=== PATIENT | male | born 1985 | race Caucasian/White ===

== ENCOUNTER 2016-12-16 15:57 | Emergency (ER) | payer OTHER ==
[~2016-12-16 15:57] MED LIST: DEXTSYP41 PO; ONDA4TAB10 SL; VNTHFA/IN INH
[2016-12-16 16:02] VITALS: TEMP 37.2; Ht 193 cm
[2016-12-16] MEDS ORDERED: SODIUM CHLORIDE 0.9% 1000ML 1,000 ML IV STA (16:36)
[2016-12-16] MEDS ORDERED: KETOROLAC TROMETHAMINE 30 MG/ML VIAL IV STA (16:36)
--- NOTE | 2016-12-16 17:11 | DIAGNOSTIC IMAGING REPORT ---
SINGLE VIEW CHEST CLINICAL HISTORY: Fever. FINDINGS: An AP, portable, upright chest radiograph is compared to study dated 08/15/2016. The examination is degraded by portable technique, large body habitus, and apical lordotic positioning. The cardiomediastinal silhouette is unremarkable. The lungs and pleural spaces are clear. No pneumothorax is seen. The bony thorax is grossly intact. IMPRESSION: No active disease in the chest. Electronically signed by: Alvaro Ayala M.D. 12/16/2016 5:10 PM Dictated Date/Time: 12/16/2016 5:09 PM
[2016-12-16 17:23] LABS: BASO % 0.3 %; BASO ABS # 0.02 K/uL (0-0.2); COMPLETE YES; EOS % 1.8 %; HEMATOCRIT 43.1 % (42-52); IG% 0.5 %; LYMPH % 30.8 %; LYMPH ABS # 2.02 K/uL (1.2-3.4); MEAN CELL VOLUME 84.2 fL (80-100); MEAN CORPUSCULAR HEMOGLOBIN 28.9 pg (25-34); MEAN CORPUSCULAR HGB CONC 34.3 g/dl (32-36); MEAN PLATELET VOLUME 10.2 fL (7.4-10.4); NEUT % 59.6 %; PLATELET COUNT 231 K/uL (130-400); RED BLOOD COUNT 5.12 M/uL (4.7-6.1); WHITE BLOOD COUNT 6.56 K/uL (4.8-10.8)
[2016-12-16 17:41] LABS: BLOOD UREA NITROGEN 14 mg/dl (7-18); BUN/CREATININE RATIO 16.6 (10-20); CALCIUM 8.3 mg/dl (8.5-10.1); CARBON DIOXIDE 27 mmol/L (21-32); CHLORIDE 104 mmol/L (98-107); CREATININE 0.83 mg/dl (0.60-1.40); GLUCOSE 146 mg/dl (70-99); POTASSIUM 3.8 mmol/L (3.5-5.1); SODIUM 140 mmol/L (136-145)
--- NOTE | 2016-12-16 17:43 | EMERGENCY ROOM VISIT NOTE ---
History Report prepared by Yuanibmedhat: Garrison Anderson Under the Supervision of: Dr. Dave Sterling D.O. First contact with patient: 16:21 Chief Complaint: COUGH Stated Complaint: FULL BODY PAIN Nursing Triage Summary: Pt presents with c/o lower back pain, into both legs. Cough, wheeze. "My eyes get covered in sleepies. I clean them off then there is more again. My eyes are irritated. My eyes have been bothering me for 3-4 days. Everything else started yesterday. When I cough, I do it until I gag." No known injury to back. History of Present Illness The patient is a 31 year old male who presents to the Emergency Room with complaints of a intermittent coughing spells that are nonproductive since yesterday. The coughing spells last until the patient is forced to gag. He also notes wheezing. He has been having waxing & waning hot and cold spells but did not take his temperature. The patient also noticed increased back pain yesterday rated 5/10 in severity. He denies any injury to the back. The patient notes that for the past three days his bilateral eyes have been irritated and have been frequently becoming crusty. 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 Source of History: patient Onset: yesterday Position: other (respiratory) Quality: other (coughing spells) Timing: intermittent Associated Symptoms: + back pain Review of Systems See HPI for pertinent positives & negatives. A total of 10 systems reviewed and were otherwise negative. Past Medical & Surgical Medical Problems: (1) Chest pain (2) Depression (3) Forehead laceration (4) Post-tussive emesis (5) Sprain of knee (6) Wrist pain, right Family History Diabetes mellitus Heart disease Social History Smoking Status: Current Every Day Smoker Marital Status: in relationship Housing Status: lives with family Occupation Status: employed Current/Historical Medications Scheduled Ibuprofen (Advil), 400-600 MG PO Q6H Omeprazole (Prilosec), 20 MG PO DAILY Scheduled PRN Albuterol Hfa (Ventolin Hfa), 2 PUFFS INH UD PRN for SOB/Wheezing Allergies Coded Allergies: Aspirin (Unverified Allergy, Mild, 12/16/16) Cephalosporins (Unverified Allergy, Unknown, UNKNOWN, 12/16/16) Penicillins (Unverified Allergy, Unknown, UNSURE, 12/16/16) Sulfa Drugs (Unverified Allergy, Unknown, ., 12/16/16) Sulfamethoxazole w/Trimethoprim (Unverified Allergy, Unknown, ., 12/16/16) Physical Exam Vital Signs Date Time Temp Pulse Resp B/P Pulse Ox O2 Delivery O2 Flow Rate FiO2 12/16/16 17:30 96 12/16/16 16:02 37.2 104 16 158/105 93 Room Air Physical Exam CONSTITUTIONAL/VITAL SIGNS: Reviewed / noted above. GENERAL: Non-toxic in appearance. INTEGUMENTARY: Warm, dry, and [place]. HEAD: Normocephalic. EYES: without scleral icterus or trauma. ENT/OROPHARYNX: clear and moist. LYMPHADENOPATHY/NECK: Is supple without lymphadenopathy or meningismus. RESPIRATORY: Lungs clear and equal. CARDIOVASCULAR: Regular rate and rhythm. GI/ABDOMEN: Soft and nontender. No organomegaly or pulsatile mass. No rebound or guarding. Normal bowel sounds. EXTREMITIES: Warm and well perfused. BACK: No CVA tenderness. NEUROLOGICAL: Intact without focal deficits. PSYCHIATRIC: normal affect. MUSCULOSKELETAL: Normally developed with good muscle tone. Medical Decision & Procedures ER Provider Diagnostic Interpretation: X ray results and stated below per my interpretation and radiology interpretation. SINGLE VIEW CHEST CLINICAL HISTORY: Fever. FINDINGS: An AP, portable, upright chest radiograph is compared to study dated 08/15/2016. The examination is degraded by portable technique, large body habitus, and apical lordotic positioning. The cardiomediastinal silhouette is unremarkable. The lungs and pleural spaces are clear. No pneumothorax is seen. The bony thorax is grossly intact. IMPRESSION: No active disease in the chest. Electronically signed by: Alvaro Ayala M.D. 12/16/2016 5:10 PM Dictated Date/Time: 12/16/2016 5:09 PM Laboratory Results 12/16/16 17:15 Red Blood Count 5.12, Mean Corpuscular Volume 84.2, Mean Corpuscular Hemoglobin 28.9, Mean Corpuscular Hemoglobin Concent 34.3, Mean Platelet Volume 10.2, Neutrophils (%) (Auto) 59.6, Lymphocytes (%) (Auto) 30.8, Monocytes (%) (Auto) 7.0, Eosinophils (%) (Auto) 1.8, Basophils (%) (Auto) 0.3, Neutrophils # (Auto) 3.91, Lymphocytes # (Auto) 2.02, Monocytes # (Auto) 0.46, Eosinophils # (Auto) 0.12, Basophils # (Auto) 0.02 12/16/16 17:15 Test 12/16/16 17:00 12/16/16 17:15 Influenza Type A Antigen Neg for Influ A (NEG) Influenza Type B Antigen Neg for Influ B (NEG) White Blood Count 6.56 K/uL (4.8-10.8) Red Blood Count 5.12 M/uL (4.7-6.1) Hemoglobin 14.8 g/dL (14.0-18.0) Hematocrit 43.1 % (42-52) Mean Corpuscular Volume 84.2 fL (80-100) Mean Corpuscular Hemoglobin 28.9 pg (25-34) Mean Corpuscular Hemoglobin Concent 34.3 g/dl (32-36) Platelet Count 231 K/uL (130-400) Mean Platelet Volume 10.2 fL (7.4-10.4) Neutrophils (%) (Auto) 59.6 % Lymphocytes (%) (Auto) 30.8 % Monocytes (%) (Auto) 7.0 % Eosinophils (%) (Auto) 1.8 % Basophils (%) (Auto) 0.3 % Neutrophils # (Auto) 3.91 K/uL (1.4-6.5) Lymphocytes # (Auto) 2.02 K/uL (1.2-3.4) Monocytes # (Auto) 0.46 K/uL (0.11-0.59) Eosinophils # (Auto) 0.12 K/uL (0-0.5) Basophils # (Auto) 0.02 K/uL (0-0.2) RDW Standard Deviation 42.1 fL (36.4-46.3) RDW Coefficient of Variation 13.7 % (11.5-14.5) Immature Granulocyte % (Auto) 0.5 % Immature Granulocyte # (Auto) 0.03 K/uL (0.00-0.02) Anion Gap 9.0 mmol/L (3-11) Estimated GFR () 134.0 Estimated GFR (Non- 115.6 BUN/Creatinine Ratio 16.6 (10-20) Calcium Level 8.3 mg/dl (8.5-10.1) Laboratory results as stated above per my review. Medications Administered Medications (Trade) Dose Ordered Sig/Victorino Route Start Time Stop Time Status Last Admin Dose Admin Sodium Chloride (Nss 1000ml) 1,000 ml @ 999 mls/hr Q1H1M STAT IV 12/16/16 16:36 12/16/16 17:36 DC 12/16/16 17:29 999 MLS/HR Ketorolac Tromethamine (Toradol Inj) 30 mg NOW STAT IV 12/16/16 16:36 12/16/16 16:45 DC 12/16/16 17:28 30 MG ED Course 1625: Previous medical records were reviewed. The patient was evaluated in room C3. A complete history and physical examination was performed. 1636: Toradol 30 mg IV, NSS 1000 ml @ 999 mls/hr. 1742: Reassessed the patient. Discussed the findings with him. He verbalized understanding of the treatment plan. The patient is ready for discharge. Medical Decision Differential includes viral illness, influenza, streptococcal pharyngitis, meningitis, pneumonia, sinusitis, UTI, pyelonephritis, otitis media. This is a 31-year-old male who presents to the ED with a chief complaint of a cough. The patient reports that he has some sleepiness eyes. He also reports some sweating and chills. He's had the symptoms for the past several days. He reports a nonproductive cough. His physical exam was unremarkable. His vital signs are stable. A chest x-ray did not show acute disease. CBC was normal. Flu swab was negative. The patient was told results the test. He is felt to be stable for discharge. His symptoms seem viral-like. Impression Primary Impression: Flu-like symptoms Scribe Attestation The scribe's documentation has been prepared under my direction and personally reviewed by me in its entirety. I confirm that the note above accurately reflects all work, treatment, procedures, and medical decision making performed by me. Departure Information Dispostion Home / Self-Care Referrals Carine Jung M.D. (MEDICAL) (PCP) Forms HOME CARE DOCUMENTATION FORM, IMPORTANT VISIT INFORMATION Patient Instructions ED Viral Syndrome, My [facility] Additional Instructions Follow-up with your doctor for further care and evaluation in 1-2 days. Return to the emergency department for worsening or new symptoms or any concerns. You have been examined and treated today on an emergency basis only. This is not a substitute for, or an effort to provide, complete comprehensive medical care. It is impossible to recognize and treat all injuries or illnesses in a single emergency department visit. It is therefore important that you follow up closely with your doctor. Call as soon as possible for an appointment.
[2016-12-16] MEDS ORDERED: PRLSR20 PO (17:46)
[2016-12-16] MEDS ORDERED: IBUP-1050 PO (17:47)
[2016-12-16 18:32] VITALS: BP 118/76; PULSE 83; O2SAT 97
[2017-02-12] MEDS ORDERED: JNV100 PO (17:00)
[2017-02-12] MEDS ORDERED: METF500T5 PO (17:00)
== END 2016-12-16 18:34 | disposition home or self-care (01) ==
LOC: C.EDB 15:59 → C.EDC 18:34
DX: J11.1 Influenza due to unidentified influenza virus with other respiratory manifestations (principal); F32.9 Major depressive disorder, single episode, unspecified; F17.200 Nicotine dependence, unspecified, uncomplicated; Z88.0 Allergy status to penicillin; Z88.2 Allergy status to sulfonamides; Z88.3 Allergy status to other anti-infective agents; Z88.6 Allergy status to analgesic agent; Z83.3 Family history of diabetes mellitus; Z82.49 Family history of ischemic heart disease and other diseases of the circulatory system

== ENCOUNTER 2017-02-09 13:53 | Observation (INO) | payer OTHER ==
[~2017-02-09] VITALS: Ht 193 cm; Wt 217.0 kg
[~2017-02-09 13:53] MED LIST changes: -DEXTSYP41 PO; +IBUP-1050 PO; -ONDA4TAB10 SL; +PRLSR20 PO
[2017-02-09] MEDS ORDERED: SODIUM CHLORIDE 0.9% 1000ML 1,000 ML IV ONE (15:00)
[2017-02-09 15:07] LABS: BASO % 0.5 %; BASO ABS # 0.04 K/uL (0-0.2); COMPLETE YES; EOS % 1.7 %; HEMATOCRIT 48.3 % (42-52); IG% 0.5 %; LYMPH % 32.1 %; LYMPH ABS # 2.81 K/uL (1.2-3.4); MEAN CELL VOLUME 82.4 fL (80-100); MEAN CORPUSCULAR HEMOGLOBIN 28.8 pg (25-34); MEAN PLATELET VOLUME 11.1 fL (7.4-10.4); MONO % 9.9 %; NEUT % 55.3 %; PLATELET COUNT 285 K/uL (130-400); RED BLOOD COUNT 5.86 M/uL (4.7-6.1); WHITE BLOOD COUNT 8.75 K/uL (4.8-10.8)
[2017-02-09 15:29] LABS: BLOOD UREA NITROGEN 15 mg/dl (7-18); BUN/CREATININE RATIO 11.6 (10-20); CALCIUM 10.4 mg/dl (8.5-10.1); CARBON DIOXIDE 31 mmol/L (21-32); CHLORIDE 90 mmol/L (98-107); GLUCOSE 588 mg/dl (70-99); MAGNESIUM 2.8 mg/dl (1.8-2.4); POTASSIUM 4.2 mmol/L (3.5-5.1); SODIUM 130 mmol/L (136-145)
[2017-02-09 15:34] LABS: URINE APPEARANCE CLEAR (CLEAR); URINE BILIRUBIN NEG (NEG); URINE COLOR YELLOW; URINE NITRITE NEG (NEG); URINE PH 5.5 (4.5-7.5); UROBILINOGEN NEG (NEG)
[2017-02-09 15:35] LABS: MANUAL MICROSCOPIC REQUIRED? NO; REVIEW REQ? NO
[2017-02-09 15:43] LABS: ARTERIAL BLD GAS O2 SATURATION 94.6 % (90-95); ARTERIAL BLOOD GAS HCO3 30 mmol/L (19-24); ARTERIAL BLOOD GAS PO2 72 mmHg (80-95); ARTERIAL BLOOD GAS pH 7.46 (7.35-7.45)
[2017-02-09] MEDS ORDERED: NovoLIN-R INSULIN PER UNIT CHARGE IV STA (15:43)
[2017-02-09 15:44] LABS: ALLEN TEST POS (POS); ARTERIAL BLOOD GAS BASE EXCESS 5.7 mEq/L (-9-1.8); O2 ADMINISTRATION ROOM AIR
[2017-02-09 15:47] LABS: BETA-HYDROXYBUTYRATE 1.22 mg/dL (0.2-2.81)
[2017-02-09] MEDS ORDERED: ONDANSETRON INJ 2 MG/ML 2 ML VIAL IV PRN (16:45)
[2017-02-09] MEDS ORDERED: ACETAMINOPHEN 325 MG TAB PO PRN (16:45)
[2017-02-09] MEDS ORDERED: ALBUTEROL HFA 8 GM INHALER INH PRN (16:45)
[2017-02-09] MEDS ORDERED: ALUMINUM/MAGNESIUM/SIMETH (MAALOX MAX) 30 ML UDC PO PRN (16:45)
[2017-02-09] MEDS ORDERED: ACETAMINOPHEN 325 MG TAB ONE (17:08)
[2017-02-09 17:31] VITALS: BP 123/88; PULSE 106; TEMP 36.7; O2SAT 93
[2017-02-09] MEDS ORDERED: GLUCOSE 10 TABS/TUBE PO PRN (17:45)
[2017-02-09] MEDS ORDERED: DEXTROSE 50% 50 ML SYR IV PRN (17:45)
[2017-02-09] MEDS ORDERED: GLUCAGON FOR INJ 1 MG VIAL SQ PRN (17:45)
[2017-02-09] MEDS ORDERED: GLUCOSE 40% GEL 15 GM TUBE PO PRN (17:45)
--- NOTE | 2017-02-09 18:01 | HISTORY & PHYSICAL EXAMINATION ---
DATE OF ADMISSION: 02/09/2017 PRIMARY CARE PHYSICIAN: Dr. Jung. CHIEF COMPLAINT: Polyuria, polydipsia, some stomach upset for the last 2 days. HISTORY OF PRESENT COMPLAINT: He is obese 31-year-old male with significant past medical history of bipolar-1 disorder, tobacco use disorder, intermittent asthma, and also depression, and apparently has been complaining of minimal cough for the last 2 days and also he does have some stomach discomfort with nausea and vomited x2 yesterday. He has been drinking a lot of ice tea and also milk for the last day or two, and he has been going to the bathroom constantly to pee. So, he has typical polydipsia, polyuria with some weakness and lethargy. He came to ER with these symptoms, and is noted to have a blood sugar of 588. He is not a diabetic, but has a strong family history of diabetes and his sodium also was noted to be low at 130. From that point, he was advised admission to the hospital and go from there. He denies to have any chest pain, palpitations, any shortness of breath. He does have abdominal discomfort with some pain in the epigastrium and nausea and vomiting. He denies to have any numbness or tingling in the extremities or any weakness involving any side. He does not have any increasing swelling of the legs or any fever, chills or rigors. PAST MEDICAL HISTORY: Significant for bipolar 1 disorder; behavioral problems; depression, but not being on any medications; intermittent asthma, has been taking inhaler as needed; and also tobacco use disorder. PAST SURGICAL HISTORY: Nothing significant except laparoscopic appendectomy as a child. FAMILY HISTORY: Significant that dad had diabetes, mom has diabetes and brothers have diabetes too. SOCIAL HISTORY: He is . He has no child. He smokes about 1 pack per day for many years. He does not drink any alcohol and he has been reasonably ambulant. ALLERGIES: ASPIRIN, CEPHALOSPORINS, PENICILLIN, SULFA AND BACTRIM. MEDICATIONS: Only medicine he has been using is albuterol inhaler as needed for asthma. PHYSICAL EXAMINATION: GENERAL: On examination in the Emergency Room, he was not having any acute distress, but he looked flushed. VITAL SIGNS: Temperature 37.0, pulse was 107, blood pressure 108/87, saturation 95% on room air. HEENT: Unremarkable. NECK: Supple. No JVD, no bruit. CHEST: Decreased breath sounds both sides, but no wheezing or crackles. HEART: S1, S2 regular. No murmur. ABDOMEN: Distended, soft. Mildly tender in the mid abdomen. Bowel sounds present. RECTAL: Deferred. EXTREMITIES: Trace edema bilaterally. MUSCULOSKELETAL SYSTEM: Did not show any acute arthritis involving any joint. CENTRAL NERVOUS SYSTEM: He was alert, awake, oriented x3. No focal sensory and/or motor deficit appreciated. LABORATORY DATA: Noted today; white count was 8.75, H\T\H is 16.9/48.3, platelets 285. Sodium 130, potassium 4.2, chloride 90, carbon dioxide 31, BUN 15, creatinine 1.30. Random glucose was 588. UA examination glucose 3+. IMPRESSION AND PLAN: 1. Acute hyperglycemia with symptoms. The patient will be admitted to medical floor. He will be given normal saline infusion and also he will be put on sliding scale insulin coverage. We will get a hemoglobin A1c. He has a strong family history of diabetes. He may have diabetes or metabolic syndrome. We will try to advice metformin from here. 2. Hyponatremia, could be causing weakness and tiredness. He has polyuria, may be losing too much sodium in the urine. We will give normal saline infusion while in the hospital. 3. Intended asthma, seems to be stable. Continue with current inhalers. 4. Tobacco use disorder. I will put him on nicotine patch and advised to quit smoking. 5. Gastrointestinal prophylaxis with Maalox and Mylanta. 6. Deep venous thrombosis prophylaxis, subQ heparin. 7. Code status. Full code. In my clinical judgment, the beneficiary meets criteria as per CMS for 2 midnight stay in the hospital. MTDD
[2017-02-09] MEDS: SODIUM CHLORIDE 0.9% 1000ML 1,000 ML IV SCH (18:12)
[2017-02-09 18:23] LABS: INR 0.9 (0.9-1.1); PARTIAL THROMBOPLASTIN RATIO 0.9; PROTHROMBIN TIME (PATIENT) 9.8 SECONDS (9.0-12.0)
[2017-02-09] MEDS: INSULIN ASPART 100 UNITS/ML 3 ML PEN SC SCH ×3 (18:30→21:16)
[2017-02-09] MEDS ORDERED: IV FLUIDS COMPLETED PRN (18:30)
[2017-02-09] MEDS: HEPARIN SOD 5000 UNIT/0.5 ML CARP SQ SCH (21:08)
[2017-02-09 21:52] VITALS: O2SAT 98; BMI 58.2
[2017-02-09] MEDS: NICOTINE 14 MG/24 HR TDSY TD SCH (22:21)
--- NOTE | 2017-02-09 22:29 | EMERGENCY ROOM VISIT NOTE ---
ED Visit Note First contact with patient: 14:39 Chief Complaint: Excessive thirst and excessive peeing. History of Present Illness: Mr. Staley is a 31 year-old white male who ambulates into the ED accompanied by a female friend complaining of excessive thirst and excessive urination for the last 2-3 days. Patient reports his symptoms started mildly but has gradually increased in intensity. He reports he is trying to quite she is thirst with ice tea with sugar and milk and has been unsuccessful; he reports he has been drinking at least a gallon of each a day. He has not identified any aggravating or alleviating factors related to these symptoms. He has not taken any medications for his symptoms prior to arrival at the hospital. Associated with his symptoms he reports he has had a mild nonproductive cough, he has mild abdominal pain, he has been nauseated and has had 2 episodes of vomiting over the last 2 days, feeling tired and weak and generalized weakness of the extremities. His abdominal discomfort is located in the epigastric area. He is not able to describe his discomfort. He does not rate his discomfort. He did report his last episode of vomiting increases discomfort but then it resolved. His pain does wax and wane. He has not taken any medications for his discomfort prior to arrival at the hospital. He denies fevers, chills, sweats, skin eruptions, skin color changes, headaches , dizziness, lightheadedness, visual changes, hearing changes, difficulty speaking, difficulty swallowing, difficulty ambulating/coordinating body movements, chest pain, shortness of breath, diarrhea, constipation, rectal bleeding, black/tarry stools, urinary burning, hematuria, neck pain, back pain, extremity numbness, joint swelling. Review of Systems: As noted above in history of present illness. All body systems were reviewed and found to be negative as noted above. Past Medical History: Asthma, bipolar disorder, depression and status post appendectomy. Current Medications: Patient denies. Allergies to Medications: Aspirin, cephalosporins, penicillin, sulfa Social History: Patient is not currently employed; he feels safe in his home environment; he admits to tobacco use and denies alcohol use. Physical Examination: Vital Signs: Date Time Temp Pulse Resp B/P Pulse Ox O2 Delivery O2 Flow Rate FiO2 02/09/17 16:05 107 22 108/87 95 Room Air 02/09/17 14:01 37.0 116 20 131/79 94 Room Air GENERAL: 31-year-old female in mild to moderate distress due to symptoms, nontoxic-appearing, afebrile and hemodynamically stable. NEUROLOGICAL: Awake, alert and oriented to person, place and time. Answering questions appropriately and following commands. Normal gait. Good hand eye coordination. No focal motor or sensory deficits. Cranial nerves II through XII grossly intact. Good short-term and long-term recall. SKIN: Warm, dry and pink. No soft tissue eruptions or trauma noted. HEENT: Atraumatic and normocephalic. PERRLA. EOMI without nystagmus. Sclera white and conjunctiva pink. No drainage from naris. Oral cavity moist and pink. Pharynx is nonerythematous or edematous. Speech normal. No lymphadenopathy. Trachea midline. No jugular venous distention. No carotid bruits. BACK: No tenderness over the bony spine. No CVA tenderness. THORAX: Lungs sounds are clear to auscultation but decreased bilaterally primarily in the bases. Equal equal bilaterally with symmetrical chest wall. No wheezing, rales or rhonchi. No crepitus, tenderness, subcutaneous air or deformities noted. HEART: Regular rate and rhythm. No gallops, rubs or murmurs are appreciated. ABDOMEN: Obese and soft with mild tenderness in the mid right quadrant. Positive bowel sounds in all quadrants. No guarding, rigidity or organomegaly. EXTREMITIES: Moves all extremities well on command and with purpose. All distal neurovascular statuses are intact and equal bilaterally. No calf tenderness or cords. ED Course: Patient is assessed as noted above. Laboratory Testing: Test 02/09/17 14:06 02/09/17 14:20 02/09/17 15:11 02/09/17 15:22 Range/Units Bedside Glucose 564 70-99 mg/dl White Blood Count 8.75 4.8-10.8 K/uL Red Blood Count 5.86 4.7-6.1 M/uL Hemoglobin 16.9 14.0-18.0 g/dL Hematocrit 48.3 42-52 % Mean Corpuscular Volume 82.4 80-100 fL Mean Corpuscular Hemoglobin 28.8 25-34 pg Mean Corpuscular Hemoglobin Concent 35.0 32-36 g/dl Platelet Count 285 130-400 K/uL Mean Platelet Volume 11.1 7.4-10.4 fL Neutrophils (%) (Auto) 55.3 % Lymphocytes (%) (Auto) 32.1 % Monocytes (%) (Auto) 9.9 % Eosinophils (%) (Auto) 1.7 % Basophils (%) (Auto) 0.5 % Neutrophils # (Auto) 4.84 1.4-6.5 K/uL Lymphocytes # (Auto) 2.81 1.2-3.4 K/uL Monocytes # (Auto) 0.87 0.11-0.59 K/uL Eosinophils # (Auto) 0.15 0-0.5 K/uL Basophils # (Auto) 0.04 0-0.2 K/uL RDW Standard Deviation 39.6 36.4-46.3 fL RDW Coefficient of Variation 13.1 11.5-14.5 % Immature Granulocyte % (Auto) 0.5 % Immature Granulocyte # (Auto) 0.04 0.00-0.02 K/uL Prothrombin Time 9.8 9.0-12.0 SECONDS Prothromb Time International Ratio 0.9 0.9-1.1 Activated Partial Thromboplast Time 24.1 21.0-31.0 SECONDS Partial Thromboplastin Ratio 0.9 Sodium Level 130 136-145 mmol/L Potassium Level 4.2 3.5-5.1 mmol/L Chloride Level 90 98-107 mmol/L Carbon Dioxide Level 31 21-32 mmol/L Anion Gap 9.0 3-11 mmol/L Blood Urea Nitrogen 15 7-18 mg/dl Creatinine 1.30 0.60-1.40 mg/dl Estimated GFR () 83.1 Estimated GFR (Non- 71.7 BUN/Creatinine Ratio 11.6 10-20 Random Glucose 588 70-99 mg/dl Calcium Level 10.4 8.5-10.1 mg/dl Magnesium Level 2.8 1.8-2.4 mg/dl Beta-Hydroxybutyric Acid 1.22 0.2-2.81 mg/dL Urine Color YELLOW Urine Appearance CLEAR CLEAR Urine pH 5.5 4.5-7.5 Urine Specific [place] 1.040 1.000-1.030 Urine Protein NEG NEG Urine Glucose (UA) 3+ NEG Urine Ketones NEG NEG Urine Occult Blood NEG NEG Urine Nitrite NEG NEG Urine Bilirubin NEG NEG Urine Urobilinogen NEG NEG Urine Leukocyte Esterase NEG NEG Arterial Blood pH 7.46 7.35-7.45 Arterial Blood Partial Pressure CO2 44 35-46 mmHg Arterial Blood Partial Pressure O2 72 80-95 mmHg Arterial Blood HCO3 30 19-24 mmol/L Arterial Blood Oxygen Saturation 94.6 90-95 % Arterial Blood Base Excess 5.7 -9-1.8 mEq/L Arterial Blood Gas Delivery ROOM AIR [place] Test POS POS Test 02/09/17 15:59 Range/Units Bedside Glucose 460 70-99 mg/dl Patient was hydrated with normal saline and he received 5 units of regular insulin IV. Patient was reassessed multiple times during his stay in the emergency department. Patient's case was reviewed with Dr. Bae; we agreed on diagnostic approach, treatment, disposition and plan. Patient's case was consulted with case management and Dr. Bishop, [facility] hospitalist, for medical observation/admission. Patient was educated about today's findings. Clinical Impression: Hyperglycemia. Hyponatremia. Decision-Making: Initially my differential diagnosis I considered DKA, hyperglycemia, electrolyte abnormality, metabolic disorder, urinary tract infection, and other causes. Disposition and Plan: Patient be brought in the hospital by Dr. Bishop for observation/admission; please see his notes and orders for final disposition and plan.
[2017-02-09 23:02] VITALS: BP 113/81; PULSE 100; TEMP 36.8; O2SAT 94
[2017-02-10] MEDS: SODIUM CHLORIDE 0.9% 1000ML 1,000 ML IV SCH ×2 (01:14→08:48)
[2017-02-10] MEDS: HEPARIN SOD 5000 UNIT/0.5 ML CARP SQ SCH ×3 (05:32→19:32)
[2017-02-10] MEDS ORDERED: PHARMACY GLYCEMIC MGMT CONSULT PRN (07:15)
[2017-02-10 07:23] VITALS: BP 129/83; PULSE 83; TEMP 36.8; O2SAT 95
[2017-02-10 07:39] LABS: HEMATOCRIT 44.8 % (42-52); MEAN CELL VOLUME 82.8 fL (80-100); MEAN CORPUSCULAR HEMOGLOBIN 28.3 pg (25-34); MEAN CORPUSCULAR HGB CONC 34.2 g/dl (32-36); MEAN PLATELET VOLUME 10.6 fL (7.4-10.4); PLATELET COUNT 235 K/uL (130-400); RED BLOOD COUNT 5.41 M/uL (4.7-6.1); WHITE BLOOD COUNT 8.42 K/uL (4.8-10.8)
[2017-02-10] MEDS ORDERED: PNEUMOCOCCAL ADMINISTRATION CHARGE ONE (08:00)
[2017-02-10] MEDS ORDERED: PNEUMOCOCCAL POLYSACCHARIDES 25 MCG/0.5 ML VIAL/SYR IM. ONE (08:00)
[2017-02-10 08:35] LABS: ESTIMATED AVERAGE GLUCOSE 217 mg/dl; HA1C FLAG Normal (Normal)
[2017-02-10 08:47] LABS: CALCIUM 8.7 mg/dl (8.5-10.1); CREATININE 0.84 mg/dl (0.60-1.40); POTASSIUM 3.6 mmol/L (3.5-5.1); THYROID STIMULATING HORMONE 0.854 uIu/ml (0.300-4.500)
[2017-02-10] MEDS: INSULIN ASPART 100 UNITS/ML 3 ML PEN SC SCH ×4 (08:47→19:31)
[2017-02-10 11:58] VITALS: BMI 58.2
[2017-02-10] MEDS: INSULIN GLARGINE SOLOSTAR 100 UNITS/ML 3 ML PEN SC SCH ×2 (12:27→19:32)
--- NOTE | 2017-02-10 14:19 | Progress Note ---
Internal Med Progress Note Date of Service: February 10, 2017. Provider Documentation: SUBJECTIVE: Seen and examined at bedside. States feeling better but is very tired. Denies any chest pain, SOB, abd pain, nausea, vomiting. OBJECTIVE: Vital Signs-as noted below Physical Exam: Vitals signs as noted above General Appearance:+Obese, no apparent distress Head: normocephalic, Atraumatic Eyes: normal inspection, EOMI, PERRL Neck: supple, Trachea midline Respiratory/Chest: Normal breath sounds, CTA Cardiovascular: S1, S2, No murmur Abdomen/GI:Soft, Non tender, Bowel sounds present, + obese Extremities/Musculoskelatal:normal inspection, no edema Neurologic/Psych:AAOX3, grossly no focal neurological deficits Skin: normal color, warm Lab data as noted below. ASSESSMENT & PLAN: Newly Diagnosed DM Likely Type II A1c: 9.2 Check C-peptide, Insulin antibodies Needs further work up as outpatient Continue ISS, Lantus Monitor blood glucose levels No signs of DKA Pharmacy Glycemic control consulted Diabetic education Diabetic Diet Hyponatremia: Likely secondary to hyperglycemia and dehydration Improving Monitor sodium levels H/O Asthma: Stable Continue with current inhalers Tobacco use disorder: Nicotine patch Advised to quit smoking Morbid Obesity: BMI:58.3 GI Px: Maalox and Mylanta. DVT Px: Heparin sq Code status: Full code. Vital Signs: Date Time Temp Pulse Resp B/P Pulse Ox O2 Delivery O2 Flow Rate FiO2 02/10/17 08:20 Room Air 02/10/17 07:23 36.8 83 20 129/83 95 Room Air 02/10/17 00:00 Room Air 02/09/17 23:02 36.8 100 20 113/81 94 Room Air 02/09/17 21:52 98 Room Air 02/09/17 17:31 36.7 106 18 123/88 93 Room Air 02/09/17 16:05 107 22 108/87 95 Room Air Lab Results: Results Past 24 Hours Test 02/09/17 15:11 02/09/17 15:22 02/09/17 15:59 02/09/17 16:41 Range/Units Urine Color YELLOW Urine Appearance CLEAR CLEAR Urine pH 5.5 4.5-7.5 Urine Specific [place] 1.040 1.000-1.030 Urine Protein NEG NEG Urine Glucose (UA) 3+ NEG Urine Ketones NEG NEG Urine Occult Blood NEG NEG Urine Nitrite NEG NEG Urine Bilirubin NEG NEG Urine Urobilinogen NEG NEG Urine Leukocyte Esterase NEG NEG Arterial Blood pH 7.46 7.35-7.45 Arterial Blood Partial Pressure CO2 44 35-46 mmHg Arterial Blood Partial Pressure O2 72 80-95 mmHg Arterial Blood HCO3 30 19-24 mmol/L Arterial Blood Oxygen Saturation 94.6 90-95 % Arterial Blood Base Excess 5.7 -9-1.8 mEq/L Arterial Blood Gas Delivery ROOM AIR [place] Test POS POS Bedside Glucose 460 430 70-99 mg/dl Test 02/09/17 17:26 02/09/17 20:16 02/10/17 07:22 02/10/17 07:28 Range/Units Bedside Glucose 371 378 278 70-99 mg/dl White Blood Count 8.42 4.8-10.8 K/uL Red Blood Count 5.41 4.7-6.1 M/uL Hemoglobin 15.3 14.0-18.0 g/dL Hematocrit 44.8 42-52 % Mean Corpuscular Volume 82.8 80-100 fL Mean Corpuscular Hemoglobin 28.3 25-34 pg Mean Corpuscular Hemoglobin Concent 34.2 32-36 g/dl RDW Standard Deviation 39.8 36.4-46.3 fL RDW Coefficient of Variation 13.3 11.5-14.5 % Platelet Count 235 130-400 K/uL Mean Platelet Volume 10.6 7.4-10.4 fL Sodium Level 135 136-145 mmol/L Potassium Level 3.6 3.5-5.1 mmol/L Chloride Level 96 98-107 mmol/L Carbon Dioxide Level 29 21-32 mmol/L Anion Gap 10.0 3-11 mmol/L Blood Urea Nitrogen 13 7-18 mg/dl Creatinine 0.84 0.60-1.40 mg/dl Est Creatinine Clear Calc Drug Dose 245.7 ml/min Estimated GFR () 133.3 Estimated GFR (Non- 115.0 BUN/Creatinine Ratio 16.0 10-20 Random Glucose 280 70-99 mg/dl Estimated Average Glucose 217 mg/dl Hemoglobin A1c 9.2 4.5-5.6 % Calcium Level 8.7 8.5-10.1 mg/dl Thyroid Stimulating Hormone (TSH) 0.854 0.300-4.500 uIu/ml Test 02/10/17 11:31 02/10/17 14:06 Range/Units Bedside Glucose 320 70-99 mg/dl
[2017-02-10 15:08] VITALS: PULSE 82; O2SAT 96
[2017-02-10] MEDS: ALBUT/IPRATROP 3MG/0.5MG NEB 3 ML VIAL INH SCH ×2 (15:08→19:14)
--- NOTE | 2017-02-10 15:08 | Pharmacy Progress Note ---
Glycemic Control Intl Consult Date of Service February 10, 2017. Scope Glycemic Pharmacist consulted by Dr Chopra on 02/10/17 for glycemic control and to write orders per [facility] inpatient glycemic control protocol. Objective Weight (Kilograms): 217.000 Accuchecks BSG (last 24hrs): Test 02/09/17 15:59 02/09/17 16:41 02/09/17 17:26 02/09/17 20:16 Bedside Glucose 460 mg/dl (70-99) 430 mg/dl (70-99) 371 mg/dl (70-99) 378 mg/dl (70-99) Test 02/10/17 07:22 02/10/17 07:28 02/10/17 11:31 Random Glucose 280 mg/dl (70-99) Bedside Glucose 278 mg/dl (70-99) 320 mg/dl (70-99) Laboratory Data (last 24hrs) Test 02/10/17 07:22 Anion Gap 10.0 mmol/L BUN/Creatinine Ratio 16.0 Blood Urea Nitrogen 13 mg/dl Creatinine 0.84 mg/dl Hemoglobin A1c 9.2 % Potassium Level 3.6 mmol/L Sodium Level 135 mmol/L White Blood Count 8.42 K/uL HbA1c Test 02/10/17 07:22 Hemoglobin A1c 9.2 % (4.5-5.6) H Recent Pertinent Medications Outpatient Anti-diabetic Regimen: * N/A -- new diagnosis * A1c = 9.2 % 02/10/17 Risk Factors for Insulin Resistance: * IVF: NS bolus, then 125mL/hr * Diet: Type 2 diabetic diet Assessment & Plan ASSESSMENT: * ADA & AACE recommend a goal blood sugar range 140-180 mg/dl for the majority of critically ill & non-critically ill patients. However, more stringent targets may be selected in individual cases. 02/10/17: * Patient is a 31yo male, previously not diagnosed with DM. PMH is significant for bipolar disorder/depression, obesity. Strong family history of diabetes. Patient had been experiencing polyuria, polydipsia, and N/V prior to admission. * Patient was initiated on correctional coverage with Novolog last evening, but remains significantly hyperglycemic today. * Lantus initiated this morning -- first dose given around lunch-time. Will continue to titrate until BSGs stable. * Novolog parameters tightened with lunch-time dose, based on patient's weight and a stress level of ~1.5. PLAN FOR INPATIENT GLYCEMIC CONTROL: * Basal insulin with LANTUS 25 units SQ BID * Correctional Insulin with NOVOLOG per scale ACHS or Q6hrs while NPO * Goal Range: Low 110 mg/dL - High 140 mg/dL -- more stringent target chosen d /t pt's age * Correction Factor: 15 mg/dL/unit * Nutritional / Prandial insulin per carb ratio of 1 unit per 7 grams CHO consumed DISCHARGE PLANNING: * Given A1c of 9.2%, will not necessarily require insulin on discharge. * Might consider dual therapy with oral agents along with diet/lifestyle modifications and close follow-up with PCP. * CDE consulted and has met with patient. Patient is familiar with DM management d/t experience with family members. * Please note that the plan above was derived based on current level of insulin resistance and hospital stress. These recommendations are appropriate for inpatient admission only. Plan of care upon discharge will need to be reassessed to avoid potential outpatient hypo/hyperglycemia. Thank you.
[2017-02-10 15:33] VITALS: BP 123/76; PULSE 97; TEMP 36.6; O2SAT 96
[2017-02-10 19:14] VITALS: PULSE 86; O2SAT 95
[2017-02-10] MEDS ORDERED: NURSING VERBAL MED ORDER ONE (21:00)
[2017-02-11] VITALS: BP 120/72; PULSE 87; TEMP 36.6; O2SAT 95
[2017-02-11] MEDS: INSULIN ASPART 100 UNITS/ML 3 ML PEN SC SCH ×6 (00:32→20:47)
[2017-02-11] MEDS: HEPARIN SOD 5000 UNIT/0.5 ML CARP SQ SCH ×3 (06:00→20:45)
[2017-02-11 07:32] VITALS: PULSE 74; O2SAT 95
[2017-02-11] MEDS: ALBUT/IPRATROP 3MG/0.5MG NEB 3 ML VIAL INH SCH ×2 (07:32→11:15)
[2017-02-11 07:33] VITALS: BP 139/84; PULSE 91; TEMP 36.6; O2SAT 96
[2017-02-11] MEDS ORDERED: NURSING DECISION MEDICATION ORDER SCH (08:15)
[2017-02-11] MEDS: INSULIN GLARGINE SOLOSTAR 100 UNITS/ML 3 ML PEN SC SCH ×2 (09:22→20:47)
[2017-02-11] MEDS: NICOTINE 14 MG/24 HR TDSY TD SCH (09:25)
[2017-02-11 09:43] LABS: BLOOD UREA NITROGEN 11 mg/dl (7-18); BUN/CREATININE RATIO 13.8 (10-20); CALCIUM 8.7 mg/dl (8.5-10.1); CARBON DIOXIDE 29 mmol/L (21-32); CHLORIDE 99 mmol/L (98-107); CREATININE 0.79 mg/dl (0.60-1.40); GLUCOSE 221 mg/dl (70-99); SODIUM 136 mmol/L (136-145)
--- NOTE | 2017-02-11 10:28 | Progress Note ---
Internal Med Progress Note Date of Service: February 11, 2017. Provider Documentation: SUBJECTIVE: Seen and examined at bedside. Reports still feeling tired but improving. States Urinary frequency is improved. Denies any chest pain, SOB, abd pain, nausea, vomiting. Offers no other complaints. OBJECTIVE: Vital Signs-as noted below Physical Exam: Vitals signs as noted above General Appearance:+Obese, no apparent distress Head: normocephalic, Atraumatic Eyes: normal inspection, EOMI, PERRL Neck: supple, Trachea midline Respiratory/Chest: Normal breath sounds, CTA Cardiovascular: S1, S2, No murmur Abdomen/GI:Soft, Non tender, Bowel sounds present, + obese Extremities/Musculoskelatal:normal inspection, no edema Neurologic/Psych:AAOX3, grossly no focal neurological deficits Skin: normal color, warm Lab data as noted below. ASSESSMENT & PLAN: Newly Diagnosed DM Likely Type II A1c: 9.2 C-peptide, Insulin antibodies:pending Needs further work up as outpatient Continue ISS, Lantus Monitor blood glucose levels No signs of DKA Pharmacy Glycemic control consulted Diabetic education Diabetic Diet Hyponatremia: Likely secondary to hyperglycemia and dehydration Monitor sodium levels Resolved H/O Asthma: Stable Continue with current inhalers Tobacco use disorder: Nicotine patch Advised to quit smoking Morbid Obesity: BMI:58.3 GI Px: Maalox and Mylanta. DVT Px: Heparin sq Code status: Full code. DISPOSITION: Plan to discharge tomorrow if stable Vital Signs: Date Time Temp Pulse Resp B/P Pulse Ox O2 Delivery O2 Flow Rate FiO2 02/11/17 11:15 75 14 95 Room Air 02/11/17 07:33 36.6 91 18 139/84 96 Room Air 02/11/17 07:32 74 16 95 Room Air 02/11/17 04:00 Room Air 02/11/17 00:00 Room Air 02/11/17 00:00 36.6 87 20 120/72 95 Room Air 02/10/17 20:00 Room Air 02/10/17 19:14 86 16 95 Room Air 02/10/17 16:00 Room Air 02/10/17 15:33 36.6 97 20 123/76 96 Room Air 02/10/17 15:08 82 16 96 Room Air Lab Results: Results Past 24 Hours Test 02/10/17 16:30 02/10/17 19:26 02/11/17 00:03 02/11/17 05:56 Range/Units Bedside Glucose 279 231 225 191 70-99 mg/dl Test 02/11/17 07:53 02/11/17 07:56 02/11/17 08:25 02/11/17 10:05 Range/Units Sodium Level 136 136-145 mmol/L Potassium Level 3.3 3.5-5.1 mmol/L Chloride Level 99 98-107 mmol/L Carbon Dioxide Level 29 21-32 mmol/L Anion Gap 8.0 3-11 mmol/L Blood Urea Nitrogen 11 7-18 mg/dl Creatinine 0.79 0.60-1.40 mg/dl Est Creatinine Clear Calc Drug Dose 261.2 ml/min Estimated GFR () 136.7 Estimated GFR (Non- 118.0 BUN/Creatinine Ratio 13.8 10-20 Random Glucose 221 70-99 mg/dl Calcium Level 8.7 8.5-10.1 mg/dl Bedside Glucose 221 70-99 mg/dl Test 02/11/17 11:28 Range/Units Bedside Glucose 252 70-99 mg/dl
[2017-02-11 10:53] VITALS: Ht 193 cm; Wt 217.0 kg
[2017-02-11 11:15] VITALS: PULSE 75; O2SAT 95
[2017-02-11] MEDS ORDERED: POTASSIUM CHLORIDE 10 MEQ TABCR PO ONE (12:15)
--- NOTE | 2017-02-11 14:34 | Pharmacy Progress Note ---
Glycemic Control: Progress Nt Date of Service February 11, 2017. Scope Glycemic Pharmacist consulted by Dr Chopra on 02/10/17 for glycemic control and to write orders per [facility] inpatient glycemic control protocol. Objective Accuchecks BSG (last 24hrs): Test 02/10/17 16:30 02/10/17 19:26 02/11/17 00:03 02/11/17 05:56 Bedside Glucose 279 mg/dl (70-99) 231 mg/dl (70-99) 225 mg/dl (70-99) 191 mg/dl (70-99) Test 02/11/17 07:56 02/11/17 08:25 02/11/17 11:28 Random Glucose 221 mg/dl (70-99) Bedside Glucose 221 mg/dl (70-99) 252 mg/dl (70-99) Laboratory Data (last 24hrs) Test 02/11/17 07:56 02/11/17 10:05 Anion Gap 8.0 mmol/L BUN/Creatinine Ratio 13.8 Blood Urea Nitrogen 11 mg/dl Creatinine 0.79 mg/dl Potassium Level mmol/L 3.3 mmol/L Sodium Level 136 mmol/L HbA1c: Test 02/10/17 07:22 Hemoglobin A1c 9.2 % (4.5-5.6) H Recent Pertinent Medications Outpatient Anti-diabetic Regimen: * none - newly diagnosed The patient is currently receiving: * Basal insulin: * Lantus 25 units every 12 hours * Bolus Insulin: * NovoLog Correction per scale ACHS - Goal Range: Low 110 mg/dL - High 140 mg/dL - Correction Factor: 15 mg/dL/unit - Carb ratio of 1 unit per 7 grams CHO consumed Risk Factors for Insulin Resistance: * elevated A1c * not yet at steady state * high BMI Assessment & Plan ASSESSMENT: * ADA & AACE recommend a goal blood sugar range 140-180 mg/dl for the majority of critically ill & non-critically ill patients. However, more stringent targets may be selected in individual cases. * Patient is a 31yo male, previously not diagnosed with DM. PMH is significant for bipolar disorder/depression, obesity. Strong family history of diabetes. Patient had been experiencing polyuria, polydipsia, and N/V prior to admission. * Lantus initiated 02/10/17 -- first dose given around lunch-time. Will continue to titrate until BSGs stable. 02/11/17 * BSGs continue to be elevated - not yet at steady state for basal insulin. * Regardless of this, increase dose based on the patient's weight and a stress of 2 * BSG pre -lunch again elevated * tighten NovoLog parameters PLAN FOR INPATIENT GLYCEMIC CONTROL: * Basal insulin: * LANTUS 30 units SQ BID * Bolus Insulin * NOVOLOG per scale ACHS * Goal Range: Low 110 mg/dL - High 140 mg/dL -- more stringent target chosen d /t pt's age * Correction Factor: 12 mg/dL/unit * Carb ratio of 1 unit per 5 grams CHO consumed * A1c * added to discharge instructions DISCHARGE PLANNING: * Given A1c of 9.2%, will not necessarily require insulin on discharge. * Might consider dual therapy with oral agents along with diet/lifestyle modifications - METFORMIN as mainstay initial therapy - begin at 500mg PO BID and titrate up to 1000mg PO BID - SITAGLIPTIN as second line therapy - begin at 100mg PO daily -----> may be able to transition to one tablet (JANUMET) as doses reach goal -----> closer follow up with PCP as insulin or change in oral agents may be needed postdischarge. * CDE consulted and has met with patient. Patient is familiar with DM management d/t experience with family members * Please note that the plan above was derived based on current level of insulin resistance and hospital stress. These recommendations are appropriate for inpatient admission only. Plan of care upon discharge will need to be reassessed to avoid potential outpatient hypo/hyperglycemia. Thank you.
[2017-02-11 15:12] VITALS: BP 123/72; PULSE 92; TEMP 36.5; O2SAT 95
[2017-02-11] MEDS ORDERED: ALBUT/IPRATROP 3MG/0.5MG NEB 3 ML VIAL INH PRN (16:00)
[2017-02-11 23:59] VITALS: BP 132/86; PULSE 88; TEMP 36.5; O2SAT 94
[2017-02-12] MEDS: HEPARIN SOD 5000 UNIT/0.5 ML CARP SQ SCH ×2 (06:00→13:26)
[2017-02-12 06:53] LABS: HEMATOCRIT 43.8 % (42-52); MEAN CELL VOLUME 84.1 fL (80-100); MEAN CORPUSCULAR HEMOGLOBIN 28.6 pg (25-34); MEAN PLATELET VOLUME 10.8 fL (7.4-10.4); PLATELET COUNT 217 K/uL (130-400); RED BLOOD COUNT 5.21 M/uL (4.7-6.1); WHITE BLOOD COUNT 7.81 K/uL (4.8-10.8)
[2017-02-12 07:45] VITALS: O2SAT 96
[2017-02-12 07:48] LABS: BUN/CREATININE RATIO 14.3 (10-20); CALCIUM 8.6 mg/dl (8.5-10.1); CREATININE 0.77 mg/dl (0.60-1.40)
[2017-02-12 08:05] VITALS: BP 143/79; PULSE 77; TEMP 36.5; O2SAT 96
[2017-02-12] MEDS: NICOTINE 14 MG/24 HR TDSY TD SCH (09:02)
[2017-02-12] MEDS: INSULIN ASPART 100 UNITS/ML 3 ML PEN SC SCH ×3 (09:03→18:22)
[2017-02-12] MEDS: INSULIN GLARGINE SOLOSTAR 100 UNITS/ML 3 ML PEN SC SCH (09:04)
[2017-02-12] MEDS ORDERED: COUGH DROP (SUGAR FREE) LOZ 24 LOZ/1 BOX ONE (09:18)
[2017-02-12] MEDS ORDERED: NURSING DECISION MEDICATION ORDER SCH (09:30)
[2017-02-12] MEDS ORDERED: COUGH DROP (SUGAR FREE) LOZ 24 LOZ/1 BOX PO PRN (09:30)
[2017-02-12 16:11] VITALS: BP 116/73; PULSE 83; TEMP 36.7; O2SAT 95
--- NOTE | 2017-02-12 16:51 | Progress Note ---
Internal Med Progress Note Date of Service: February 12, 2017. Provider Documentation: SUBJECTIVE: Seen and examined at bedside. Doing well. Denies any chest pain, SOB, abd pain, nausea, vomiting. Offers no other complaints. OBJECTIVE: Vital Signs-as noted below Physical Exam: Vitals signs as noted above General Appearance:+Obese, no apparent distress Head: normocephalic, Atraumatic Eyes: normal inspection, EOMI, PERRL Neck: supple, Trachea midline Respiratory/Chest: Normal breath sounds, CTA Cardiovascular: S1, S2, No murmur Abdomen/GI:Soft, Non tender, Bowel sounds present, + obese Extremities/Musculoskelatal:normal inspection, no edema Neurologic/Psych:AAOX3, grossly no focal neurological deficits Skin: normal color, warm Lab data as noted below. ASSESSMENT & PLAN: Newly Diagnosed DM Likely Type II A1c: 9.2 C-peptide, Insulin antibodies:pending Needs further work up as outpatient On ISS, Lantus during hospitalization Monitor blood glucose levels No signs of DKA Pharmacy Glycemic control consulted Diabetic education Diabetic Diet Plan to discharge on Metformin 500mg PO BID and Sitagliptin 100mg PO daily May need to titrate up Metformin to 1000mg PO BID and also may need Basal Insulin in the future Healthy lifestyle modifications Hyponatremia: Likely secondary to hyperglycemia and dehydration Monitor sodium levels Resolved H/O Asthma: Stable Continue with current inhalers Tobacco use disorder: Nicotine patch Advised to quit smoking Morbid Obesity: BMI:58.3 GI Px: Maalox and Mylanta. DVT Px: Heparin sq Code status: Full code. DISPOSITION: Plan to discharge tomorrow if stable Plan to discharge home today Follow up with in 1 week Vital Signs: Date Time Temp Pulse Resp B/P Pulse Ox O2 Delivery O2 Flow Rate FiO2 02/12/17 16:11 36.7 83 20 116/73 95 Room Air 02/12/17 08:05 36.5 77 20 143/79 96 02/12/17 07:45 96 Room Air 02/12/17 00:00 Room Air 02/11/17 23:59 36.5 88 20 132/86 94 Room Air Lab Results: Results Past 24 Hours Test 02/11/17 20:07 02/12/17 05:45 02/12/17 07:47 02/12/17 11:33 Range/Units Bedside Glucose 152 184 206 70-99 mg/dl White Blood Count 7.81 4.8-10.8 K/uL Red Blood Count 5.21 4.7-6.1 M/uL Hemoglobin 14.9 14.0-18.0 g/dL Hematocrit 43.8 42-52 % Mean Corpuscular Volume 84.1 80-100 fL Mean Corpuscular Hemoglobin 28.6 25-34 pg Mean Corpuscular Hemoglobin Concent 34.0 32-36 g/dl RDW Standard Deviation 41.1 36.4-46.3 fL RDW Coefficient of Variation 13.4 11.5-14.5 % Platelet Count 217 130-400 K/uL Mean Platelet Volume 10.8 7.4-10.4 fL Sodium Level 139 136-145 mmol/L Potassium Level 4.0 3.5-5.1 mmol/L Chloride Level 101 98-107 mmol/L Carbon Dioxide Level 31 21-32 mmol/L Anion Gap 7.0 3-11 mmol/L Blood Urea Nitrogen 11 7-18 mg/dl Creatinine 0.77 0.60-1.40 mg/dl Est Creatinine Clear Calc Drug Dose 268.0 ml/min Estimated GFR () 138.2 Estimated GFR (Non- 119.2 BUN/Creatinine Ratio 14.3 10-20 Random Glucose 185 70-99 mg/dl Calcium Level 8.6 8.5-10.1 mg/dl
[2017-02-12] MEDS ORDERED: JNV100 PO (17:00)
[2017-02-12] MEDS ORDERED: METF500T5 PO (17:00)
--- NOTE | 2017-02-12 17:05 | Discharge Summary ---
Discharge Summary Date of Service February 12, 2017. Discharge Summary Admission Date: February 09, 2017 at 16:35 Discharge Date: February 12, 2017 Discharge Disposition: Home Principal Diagnosis: Newly Diagnosed DM II Procedures: None Consultations: None Pending Studies/Follow-Up: Follow up with in 1 week Plan to discharge on Metformin 500mg PO BID and Sitagliptin 100mg PO daily May need to titrate up Metformin to 1000mg PO BID and also may need Basal Insulin in the future Seek immediate medical attention if your symptoms reoccur or worsen Take medications regularly Be consistent in diet and exercise regularly as advised Check your Blood sugar levels regularly as advised Medication Reconciliation New Medications: Metformin Hcl Er (Glucophage Er) 500 Mg Tab 500 MG PO BID for 30 Days, #60 TAB Sitagliptin (Januvia) 100 Mg Tab 100 MG PO DAILY for 30 Days, #30 Admission Information HPI (per Admitting provider): CHIEF COMPLAINT: Polyuria, polydipsia, some stomach upset for the last 2 days. HISTORY OF PRESENT COMPLAINT: He is obese 31-year-old male with significant past medical history of bipolar-1 disorder, tobacco use disorder, intermittent asthma, and also depression, and apparently has been complaining of minimal cough for the last 2 days and also he does have some stomach discomfort with nausea and vomited x2 yesterday. He has been drinking a lot of ice tea and also milk for the last day or two, and he has been going to the bathroom constantly to pee. So, he has typical polydipsia, polyuria with some weakness and lethargy. He came to ER with these symptoms, and is noted to have a blood sugar of 588. He is not a diabetic, but has a strong family history of diabetes and his sodium also was noted to be low at 130. From that point, he was advised admission to the hospital and go from there. He denies to have any chest pain, palpitations, any shortness of breath. He does have abdominal discomfort with some pain in the epigastrium and nausea and vomiting. He denies to have any numbness or tingling in the extremities or any weakness involving any side. He does not have any increasing swelling of the legs or any fever, chills or rigors. Physical Exam (per Admitting): PHYSICAL EXAMINATION: GENERAL: On examination in the Emergency Room, he was not having any acute distress, but he looked flushed. VITAL SIGNS: Temperature 37.0, pulse was 107, blood pressure 108/87, saturation 95% on room air. HEENT: Unremarkable. NECK: Supple. No JVD, no bruit. CHEST: Decreased breath sounds both sides, but no wheezing or crackles. HEART: S1, S2 regular. No murmur. ABDOMEN: Distended, soft. Mildly tender in the mid abdomen. Bowel sounds present. RECTAL: Deferred. EXTREMITIES: Trace edema bilaterally. MUSCULOSKELETAL SYSTEM: Did not show any acute arthritis involving any joint. CENTRAL NERVOUS SYSTEM: He was alert, awake, oriented x3. No focal sensory and/or motor deficit appreciated. Hospital Course Newly Diagnosed DM Likely Type II A1c: 9.2 C-peptide, Insulin antibodies:pending Needs further work up as outpatient On ISS, Lantus during hospitalization Monitor blood glucose levels No signs of DKA Pharmacy Glycemic control consulted Diabetic education Diabetic Diet Plan to discharge on Metformin 500mg PO BID and Sitagliptin 100mg PO daily May need to titrate up Metformin to 1000mg PO BID and also may need Basal Insulin in the future Healthy lifestyle modifications Hyponatremia: Likely secondary to hyperglycemia and dehydration Monitor sodium levels Resolved H/O Asthma: Stable Continue with current inhalers Tobacco use disorder: Nicotine patch Advised to quit smoking Morbid Obesity: BMI:58.3 GI Px: Maalox and Mylanta. DVT Px: Heparin sq Code status: Full code. DISPOSITION: Plan to discharge tomorrow if stable Plan to discharge home today Follow up with in 1 week Total time spent on discharge = This includes examination of the patient, discharge planning, medication reconciliation, and communication with other providers. Discharge Instructions Discharge Instructions Date of Service February 12, 2017. Admission Reason for Admission: Excessive Peeing,Achey,Stomach Hurts Discharge Discharge Diagnosis / Problem: Newly Diagnosed DM II Discharge Goals Goal(s): Decrease discomfort, Improve function Activity Recommendations Activity Limitations: resume your previous activity Exercise/Sports Limitations: as tolerated . Instructions / Follow-Up Instructions / Follow-Up Follow up with in 1 week Seek immediate medical attention if your symptoms reoccur or worsen Take medications regularly Be consistent in diet and exercise regularly as advised Check your Blood sugar levels regularly as advised Current Hospital Diet Patient's current hospital diet: Diabetes Type 2 Diet Discharge Diet Recommended Diet: Diabetes Type 2 Diet Pending Studies Studies pending at discharge: no List of pending studies: C-Peptide and Insulin antibody levels Laboratory Results Hemoglobin A1c Test 02/10/17 07:22 Range/Units Estimated Average Glucose 217 mg/dl Hemoglobin A1c 9.2 H 4.5-5.6 % Work Instructions Additional Instructions: Can return to work on 02/15/17 Medical Emergencies . Who to Call and When: Medical Emergencies: If at any time you feel your situation is an emergency, please call 911 immediately. . Non-Emergent Contact Non-Emergency issues call your: Primary Care Provider Call Non-Emergent contact if: you have a fever, you have any medication questions If your symptoms reoccur or worsen . . "Provider Documentation" section prepared by Emmanuel Chopra. . VTE Core Measure Inpt VTE Proph given/why not?: Unfractionated heparin SQ
[2017-02-12 18:51] VITALS: BP 116/73; PULSE 83; TEMP 36.7; O2SAT 95
[2017-02-16 04:16] LABS: INSULIN AUTOANTIBODY 36178 <0.4 U/mL (<0.4)
== END 2017-02-12 20:25 | disposition home or self-care (01) ==
LOC: ENRESERVTM → ENRESERVDT → C.EDB 13:54 → C.4E 16:35
PROVIDERS: ADMIT Internal Medicine; ATTEND Internal Medicine
DX: E11.9 Type 2 diabetes mellitus without complications (principal); E87.1 Hypo-osmolality and hyponatremia; E66.9 Obesity, unspecified; Z68.43 Body mass index [BMI] 50.0-59.9, adult; F17.200 Nicotine dependence, unspecified, uncomplicated; J45.909 Unspecified asthma, uncomplicated; Z90.89 Acquired absence of other organs; Z88.0 Allergy status to penicillin; Z88.2 Allergy status to sulfonamides; Z83.3 Family history of diabetes mellitus

== ENCOUNTER 2017-04-11 19:05 | Emergency (ER) | payer OTHER ==
[~2017-04-11] VITALS: Ht 193 cm; Wt 195.0 kg
[~2017-04-11 19:05] MED LIST changes: -IBUP-1050 PO; +JNV100 PO; -PRLSR20 PO; -VNTHFA/IN INH
[2017-04-11 19:11] VITALS: BP 153/82; PULSE 85; TEMP 36.8; O2SAT 93; Ht 193 cm; Wt 195.0 kg
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
[2017-04-11] MEDS ORDERED: BCTCR/30 EXT (19:46)
== END 2017-04-11 19:53 | disposition home or self-care (01) ==
LOC: C.EDB 19:06 → C.EDD 19:53
DX: L55.1 Sunburn of second degree (principal); Z83.3 Family history of diabetes mellitus; Z79.899 Other long term (current) drug therapy; F17.210 Nicotine dependence, cigarettes, uncomplicated; F32.9 Major depressive disorder, single episode, unspecified

== ENCOUNTER 2017-10-04 00:11 | Emergency (ER) | payer OTHER ==
[~2017-10-04] VITALS: Ht 193 cm; Wt 169.1 kg
[2017-10-04 00:14] VITALS: TEMP 37; Ht 193 cm; Wt 169.1 kg
[2017-10-04] MEDS ORDERED: ALBUT/IPRATROP 3MG/0.5MG NEB 3 ML VIAL INH STA (00:29)
[2017-10-04] MEDS ORDERED: DEXAMETHASONE **PF** INJ 10 MG/ML VIAL PO ONE (00:30)
[2017-10-04] MEDS ORDERED: PSEUDOEPHEDRINE HCL 30 MG TAB PO STA (00:32)
[2017-10-04 01:12] LABS: INFLUENZA B ANTIGEN Neg for Influ B (NEG)
[2017-10-04] MEDS ORDERED: METF-384 PO (01:13)
[2017-10-04] MEDS ORDERED: ALBUTEROL HFA 8 GM INHALER INH STA (01:34)
--- NOTE | 2017-10-04 01:34 | EMERGENCY ROOM VISIT NOTE ---
History First contact with patient: 00:22 Chief Complaint: FLU LIKE SX Stated Complaint: COLD-COUGH,CONGESTION,HEAD PRESSURE History of Present Illness The patient is a 32 year old male who presents to the Emergency Room with complaints of cough, congestion, myalgias and arthralgias with sinus pain and congestion for the past 2-3 days. No temperature was taken. He has been taking DayQuil and NyQuil. Patient has asthma has been using his inhaler with minimal improvement of symptoms. Patient denies chest pain, headache, neck status, sore throat, abdominal pain, vomiting, diarrhea. He is tolerating by mouth fluids and food. No diabetes. Review of Systems See HPI for pertinent positives & negatives. A total of 10 systems reviewed and were otherwise negative. Past Medical/Surgical History Medical Problems: (1) Acute hyperglycemia (2) Chest pain (3) Depression (4) Forehead laceration (5) Post-tussive emesis (6) Sprain of knee (7) Wrist pain, right Family History Diabetes mellitus Heart disease Social History Smoking Status: Current Every Day Smoker Drug Use: none Marital Status: in relationship Housing Status: lives with family Occupation Status: employed Current/Historical Medications Scheduled Metformin Hcl (Glucophage), 1,000 MG PO BID Scheduled PRN Albuterol Hfa (Ventolin Hfa), 2 PUFFS INH DIRECTED PRN for Shortness of Breath Physical Exam Vital Signs Date Time Temp Pulse Resp B/P (MAP) Pulse Ox O2 Delivery O2 Flow Rate FiO2 10/04/17 00:43 Room Air 10/04/17 00:14 37.0 103 22 188/76 95 Room Air Physical Exam PHYSICAL EXAM: Vital Signs: Reviewed Nurse's notes. Oxygen saturation was 95% on room air. GENERAL: Pleasant male with audible wheeze, Alert, oriented and coherent. The patient is able to speak in complete sentences. NECK: Supple, non -tender. CHEST: Symmetrical expansion. no retractions no accessory muscle use. HEART: Regular rate and normal heart sounds, no murmur, gallop or rub. LUNGS: Breath sounds equal but significantly diminished in intensity on both sides. Bilateral wheezes heard but no rales or pleuritic rub. SKIN: The skin was without rashes, erythema, edema, or bruising. There is no tenting of the skin. Capillary reflex less than 2 seconds. HEAD: Normocephalic atraumatic. EARS: External auditory canals clear, tympanic membranes pearly coker without erythema or effusion bilaterally. EYES: Pupils equal round and reactive to light and accommodation. Conjunctivae without injection, sclerae without icterus. Extraocular movements intact. NOSE: Patent, turbinates without inflammation or discharge. No sinus tenderness. MOUTH: Mucous membranes moist. Pharynx without erythema or exudate. Uvula midline. Airway patent. Tongue does not deviate. ABDOMEN: Positive bowel sounds x 4. Normal tympanic percussion. Soft, nontender, without masses or organomegaly. Wynn sign negative. No guarding or rebound tenderness. MUSCULOSKELETAL: No muscle atrophy, erythema, or edema noted. NEURO: Patient was alert and oriented to person place and time. Normal sensation to light and sharp touch. No focal neurological deficits. Medical Decision & Procedures Laboratory Results Test 10/04/17 00:45 Influenza Type A Antigen Neg for Influ A (NEG) Influenza Type B Antigen Neg for Influ B (NEG) Medications Administered Medications (Trade) Dose Ordered Sig/Victorino Route Start Time Stop Time Status Last Admin Dose Admin Albuterol/ Ipratropium (Duoneb) 3 ml NOW STAT INH 10/04/17 00:29 10/04/17 00:31 DC 10/04/17 00:42 3 ML Dexamethasone Sodium Phosphate (Dexamethasone Inj Pf) 10 mg NOW ONCE PO 10/04/17 00:30 10/04/17 00:31 DC 10/04/17 00:42 10 MG Pseudoephedrine HCl (Sudafed Tab) 60 mg NOW STAT PO 10/04/17 00:32 10/04/17 00:33 DC 10/04/17 00:42 60 MG ED Course Prior records/ancillary studies reviewed. Triage Nursing notes reviewed. The patient's history was concerning for fever. Differential diagnosis: Etiologies such as viral syndrome, otitis, pharyngitis, pneumonia, influenza, meningitis, urinary tract infection, sepsis, bacteremia, as well as others were entertained. Physical examination: Patient is alert with audible wheeze speaking in full sentences ER treatment provided: Nebulizer, Decadron, Sudafed On reassessment the patient felt better. Diagnostics interpreted by me: The labs revealed a rapid flu that was negative Imaging studies: Chest x-ray with no acute consolidation, pneumothorax or free air per my interpretation This appears to be consistent with asthmatic bronchitis. Patient felt much better after being medicated as above. He was not retracting. Stable vital signs. He was strongly encouraged to quit smoking. He was advised to take medications as directed, rest, stay well-hydrated and to follow-up family care in a few days or here in the ER sooner for high fevers, lethargy, vomiting, difficulty breathing, worsening signs or symptoms or as needed. By the evaluation outlined above emergent etiologies such as otitis, pharyngitis, pneumonia, meningitis, urinary tract infection, sepsis, bacteremia, as well as others were deemed relatively unlikely. The pt informed about the findings as listed above. All questions were answered and pleased with the treatment. Return instructions were outlined and the patient was discharged in stable condition. Outpatient prescription management: Prednisone Referral: The patient was referred back to their primary care physician for follow-up in 2 to 3 days for a recheck of the current condition. Case reviewed with my attending Medical Decision As above Medication Reconcilliation Current Medication List: was personally reviewed by me Blood Pressure Screening Patient's blood pressure: Elevated blood pressure Blood pressure disposition: Elevated BP felt to be situational Impression Primary Impression: Asthmatic bronchitis Departure Information Dispostion Home / Self-Care Condition GOOD Referrals Carine Jung M.D. (MEDICAL) (PCP) Patient Instructions My [facility] Additional Instructions Albuterol Inhaler: Take 2 puffs four times daily for five days, then as needed. Prednisone 50mg: Once daily until the prescription is finished. It is best to take this earlier in the day as some patients note occasional difficulty falling asleep when taken in the late evening. Acetaminophen(Tylenol) may be used for fever or pain. Use 1000mg every six hours as needed. Avoid using more than 3000mg in a 24 hour period. (AND/OR) Ibuprofen(Motrin, Advil) may be used for fever or pain. Use 600mg every six hours as needed. Take with food. Avoid using more than 2400mg in a 24 hour period. Do not use 2400mg per day for more than three consecutive days without physician direction. Prolonged inappropriate use can lead to stomach upset or ulcers. Afrin nasal spray: 2-3 sprays to each nostril twice daily as needed for congestion. Do not use for more than 3-4 days because it can lead to worsening rebound congestion. Pseudoephedrine(Sudaphed): 30-60mg every 6 hours as needed for nasal congestion. Do not take this with other stimulant products or supplements. Rest and drink plenty of fluids. Controlling your fever with Tylenol and Ibuprofen as above will make you feel better. Wash your hands after nose blowing, sneezing, or coughing. Most germs are spread through contact, therefore improper hygiene may result in your close contacts and loved ones becoming ill just like you. Continue current medications. Return to the ER for severe headache, neck stiffness, chest pain, difficulty breathing, fevers, vomiting, worsening of your condition, or as needed. Follow up with your primary physician this week for a recheck of your current condition. Problem Qualifiers Primary Impression: Asthmatic bronchitis Asthma severity: moderate Asthma persistence: persistent Asthma complication type: with acute exacerbation Qualified Codes: J45.41 - Moderate persistent asthma with (acute) exacerbation
[2017-10-04] MEDS ORDERED: PRED50TA PO (01:35)
[2017-10-04 01:49] LABS: INFLUENZA A PCR Neg for Influ A (NEG); INFLUENZA B PCR Neg for Influ B (NEG)
[2017-10-04 01:53] VITALS: BP 152/72; PULSE 105; O2SAT 97
--- NOTE | 2017-10-04 07:00 | DIAGNOSTIC IMAGING REPORT ---
CHEST 2 VIEWS ROUTINE CLINICAL HISTORY: 32 years-old Male presenting with cough/fever. TECHNIQUE: PA and lateral views of the chest were obtained. COMPARISON: 12/16/2016. FINDINGS: Cardiomediastinal silhouette normal. Suggestion of vague perihilar opacities resulting in slight vascular indistinctness. No other focal infiltrate. No pleural effusion or pneumothorax. Osseous structures normal. Upper abdomen normal. IMPRESSION: 1. Suggestion of vague perihilar opacities which could suggest viral bronchiolitis or reactive airways disease. No focal infiltrate to suggest pneumonia. Electronically signed by: Jim Rodriguez M.D. 10/04/2017 6:58 AM Dictated Date/Time: 10/04/2017 6:57 AM
[2017-12-05] MEDS ORDERED: LISI-730 PEG (17:48)
[2017-12-05] MEDS ORDERED: LISI-730 PO (19:06)
[2018-04-09] MEDS ORDERED: VNTHFA/IN INH (01:13)
[2018-04-09] MEDS ORDERED: TYLOTC500 PO (16:38)
[2018-04-09] MEDS ORDERED: MTR/600 PO (16:38)
[2018-04-09] MEDS ORDERED: METF500T PO (17:48)
[2018-04-12] MEDS ORDERED: LVQ750 PO (13:29)
== END 2017-10-04 01:53 | disposition home or self-care (01) ==
LOC: C.EDB 00:13 → C.EDA 01:53
DX: J45.909 Unspecified asthma, uncomplicated (principal); F32.9 Major depressive disorder, single episode, unspecified; Z87.828 Personal history of other (healed) physical injury and trauma; F17.200 Nicotine dependence, unspecified, uncomplicated; Z79.84 Long term (current) use of oral hypoglycemic drugs; Z83.3 Family history of diabetes mellitus; Z82.49 Family history of ischemic heart disease and other diseases of the circulatory system

== ENCOUNTER 2017-11-30 20:55 | Emergency (ER) | payer OTHER ==
[~2017-11-30] VITALS: Ht 193 cm; Wt 197.0 kg
[~2017-11-30 20:55] MED LIST changes: -JNV100 PO; +METF-384 PO; +VNTHFA/IN INH
[2017-11-30 20:59] VITALS: TEMP 36.9; Ht 193 cm; Wt 197.0 kg
[2017-11-30] MEDS: SODIUM CHLORIDE 0.9% 1000ML 1,000 ML IV ONE (23:06)
[2017-11-30 23:16] LABS: BASO % 0.4 %; BASO ABS # 0.04 K/uL (0-0.2); EOS % 1.6 %; EOS ABS # 0.18 K/uL (0-0.5); HEMOGLOBIN 14.3 g/dL (14.0-18.0); IG# 0.04 K/uL (0.00-0.02); LYMPH ABS # 3.28 K/uL (1.2-3.4); MEAN CELL VOLUME 83.8 fL (80-100); MEAN CORPUSCULAR HEMOGLOBIN 28.5 pg (25-34); MEAN PLATELET VOLUME 9.7 fL (7.4-10.4); MONO % 8.6 %; MONO ABS # 0.97 K/uL (0.11-0.59); NEUT ABS # 6.79 K/uL (1.4-6.5); PLATELET COUNT 265 K/uL (130-400); RED CELL DISTRIBUTION WIDTH CV 14.1 % (11.5-14.5); RED CELL DISTRIBUTION WIDTH SD 43.3 fL (36.4-46.3)
[2017-11-30 23:35] LABS: INFLUENZA B ANTIGEN Neg for Influ B (NEG)
[2017-11-30 23:49] LABS: ALBUMIN 3.4 gm/dl (3.4-5.0); CALCIUM 8.6 mg/dl (8.5-10.1); CREATININE 0.69 mg/dl (0.60-1.40); POTASSIUM 4.2 mmol/L (3.5-5.1)
[2017-12-01 00:06] LABS: TOTAL PROTEIN 7.5 gm/dl (6.4-8.2)
[2017-12-01] MEDS ORDERED: OPTIRAY 320 IV PRN (00:30)
[2017-12-01] MEDS: AZITHROMYCIN 250 MG TAB PO ONE (00:35)
[2017-12-01] MEDS ORDERED: AZIT250T PO (02:00)
[2017-12-01 02:07] VITALS: BP 152/91; PULSE 81; O2SAT 96
--- NOTE | 2017-12-01 04:37 | EMERGENCY ROOM VISIT NOTE ---
History First contact with patient: 22:21 Chief Complaint: OTHER COMPLAINT Stated Complaint: LIGHT HEADED, ACHY PAIN IN SIDE History of Present Illness The patient is a 32 year old male who presents to the Emergency Room with complaints of lightheadedness and chills bring him to the emergency department. The patient states that he was laying in bed tonight, and felt very hot and sweaty. The patient has had an achy pain in his right-sided back/chest for the past 3 or 4 days. Evidently he has had some increased wheezing at home and has not taken anything [id number] for his symptoms. No recent travel history. He does not have distinct chest pain, chest tightness, or shortness of breath. He is diabetic and states that his sugar has been doing well. He does not have abdominal or extremity pain. He rates his current discomfort a 4/ 10. Review of Systems More than 10 systems were reviewed and otherwise negative with the exception of history of present illness. Past Medical/Surgical History Medical Problems: (1) Acute hyperglycemia (2) Chest pain (3) Depression (4) Forehead laceration (5) Post-tussive emesis (6) Sprain of knee (7) Wrist pain, right Family History Diabetes mellitus Heart disease Social History Smoking Status: Current Every Day Smoker Drug Use: none Marital Status: in relationship Housing Status: lives with family Occupation Status: employed Current/Historical Medications Scheduled Azithromycin (Zithromax), 250 MG PO DAILY Metformin Hcl (Glucophage), 1,000 MG PO BID Scheduled PRN Albuterol Hfa (Ventolin Hfa), 2 PUFFS INH DIRECTED PRN for Shortness of Breath Physical Exam Vital Signs Date Time Temp Pulse Resp B/P (MAP) Pulse Ox O2 Delivery O2 Flow Rate FiO2 12/01/17 02:07 81 22 152/91 96 12/01/17 01:59 81 22 152/91 96 Room Air 12/01/17 00:37 92 20 139/68 94 Room Air 11/30/17 23:07 87 16 126/70 94 Room Air 11/30/17 23:05 84 11/30/17 20:59 36.9 98 18 184/82 95 Room Air Physical Exam VITALS: Vitals are noted on the nurse's note and reviewed by myself. Vital signs stable. GENERAL: Well-developed, well-nourished, obese male, who is in no acute distress and resting comfortably. Patient is cooperative with the examination. HEAD: Normocephalic atraumatic. EARS: External ear normal. External auditory canals clear, tympanic membranes pearly coker without erythema or effusion bilaterally. EYES: Pupils equal round and reactive to light and accommodation. Conjunctivae without injection, sclerae without icterus. Extraocular movements intact. NOSE: Patent, turbinates without inflammation or discharge. MOUTH: Mucous membranes moist. Tonsils are not enlarged. Pharynx without erythema, blood, or exudate. Uvula midline. Airway patent. NECK: Supple without nuchal rigidity. No lymphadenopathy. No thyromegaly. Cervical spine is nontender. HEART: Regular rate and rhythm without murmurs gallops or rubs. LUNGS: Scant wheezing and rhonchi throughout Medical Decision & Procedures ER Provider Diagnostic Interpretation: Preliminary Findings Only See Final Report For Complete Findings CTA CHEST: Evaluation of the segmental and subsegmental branches are limited due to motion artifact. No definite evidence of pulmonary emboli. No acute airspace opacities. No pleural effusion or pneumothorax. Mild cardiomegaly. No aortic aneurysm. Evaluation for dissection is limited due to technique. Scoliosis. Laboratory Results 11/30/17 22:55 Red Blood Count 5.01, Mean Corpuscular Volume 83.8, Mean Corpuscular Hemoglobin 28.5, Mean Corpuscular Hemoglobin Concent 34.0, Mean Platelet Volume 9.7, Neutrophils (%) (Auto) 60.0, Lymphocytes (%) (Auto) 29.0, Monocytes (%) (Auto) 8.6, Eosinophils (%) (Auto) 1.6, Basophils (%) (Auto) 0.4, Neutrophils # (Auto) 6.79, Lymphocytes # (Auto) 3.28, Monocytes # (Auto) 0.97, Eosinophils # (Auto) 0.18, Basophils # (Auto) 0.04 11/30/17 22:55 Test 11/30/17 22:44 11/30/17 22:50 11/30/17 22:55 11/30/17 23:01 Urine Color YELLOW Urine Appearance CLEAR (CLEAR) Urine pH 5.0 (4.5-7.5) Urine Specific [place] 1.019 (1.000-1.030) Urine Protein NEG (NEG) Urine Glucose (UA) NEG (NEG) Urine Ketones NEG (NEG) Urine Occult Blood NEG (NEG) Urine Nitrite NEG (NEG) Urine Bilirubin NEG (NEG) Urine Urobilinogen NEG (NEG) Urine Leukocyte Esterase TRACE (NEG) Urine WBC (Auto) 5-10 /hpf (0-5) Urine RBC (Auto) 0-4 /hpf (0-4) Urine Hyaline Casts (Auto) 0 /lpf (0-5) Urine Epithelial Cells (Auto) >30 /lpf (0-5) Urine Bacteria (Auto) NEG (NEG) Influenza Type A Antigen Neg for Influ A (NEG) Influenza Type B Antigen Neg for Influ B (NEG) White Blood Count 11.30 K/uL (4.8-10.8) Red Blood Count 5.01 M/uL (4.7-6.1) Hemoglobin 14.3 g/dL (14.0-18.0) Hematocrit 42.0 % (42-52) Mean Corpuscular Volume 83.8 fL (80-100) Mean Corpuscular Hemoglobin 28.5 pg (25-34) Mean Corpuscular Hemoglobin Concent 34.0 g/dl (32-36) Platelet Count 265 K/uL (130-400) Mean Platelet Volume 9.7 fL (7.4-10.4) Neutrophils (%) (Auto) 60.0 % Lymphocytes (%) (Auto) 29.0 % Monocytes (%) (Auto) 8.6 % Eosinophils (%) (Auto) 1.6 % Basophils (%) (Auto) 0.4 % Neutrophils # (Auto) 6.79 K/uL (1.4-6.5) Lymphocytes # (Auto) 3.28 K/uL (1.2-3.4) Monocytes # (Auto) 0.97 K/uL (0.11-0.59) Eosinophils # (Auto) 0.18 K/uL (0-0.5) Basophils # (Auto) 0.04 K/uL (0-0.2) RDW Standard Deviation 43.3 fL (36.4-46.3) RDW Coefficient of Variation 14.1 % (11.5-14.5) Immature Granulocyte % (Auto) 0.4 % Immature Granulocyte # (Auto) 0.04 K/uL (0.00-0.02) Anion Gap 10.0 mmol/L (3-11) Est Creatinine Clear Calc Drug Dose 279.2 ml/min Estimated GFR () 143.6 Estimated GFR (Non- 123.9 BUN/Creatinine Ratio 23.8 (10-20) Calcium Level 8.6 mg/dl (8.5-10.1) Total Bilirubin 0.2 mg/dl (0.2-1) Aspartate Amino Transf (AST/SGOT) 22 U/L (15-37) Alanine Aminotransferase (ALT/SGPT) 43 U/L (12-78) Alkaline Phosphatase 79 U/L (45-117) Total Protein 7.5 gm/dl (6.4-8.2) Albumin 3.4 gm/dl (3.4-5.0) Globulin 4.1 gm/dl (2.5-4.0) Albumin/Globulin Ratio 0.8 (0.9-2) Thyroid Stimulating Hormone (TSH) 1.980 uIu/ml (0.300-4.500) Chemistry Specimen Hemolysis Bedside Troponin I < 0.030 ng/ml (0-0.045) Medications Administered Medications (Trade) Dose Ordered Sig/Victorino Route Start Time Stop Time Status Last Admin Dose Admin Sodium Chloride 1,000 ml @ 999 mls/hr Q1H1M ONCE IV 11/30/17 22:45 11/30/17 23:45 DC 11/30/17 23:06 999 MLS/HR Azithromycin (Zithromax Tab) 500 mg NOW ONCE PO 12/01/17 00:15 12/01/17 00:16 DC 12/01/17 00:35 500 MG ED Course Physical exam and history were performed. Nursing notes, EMR, and Medication List were personally reviewed. Patient appears to have vague lightheadedness and some right-sided chest discomfort bringing him to the ER today. IV access was established and labs were obtained. The patient was hydrated with normal saline. He was placed on a monitoring coordinator. EKG was normal sinus rhythm without acute ST elevation per my interpretation. X-rays were obtained. The patient's blood work is as above and was reviewed. He does have a very minimally elevated white blood cell count 11,000. He does not have a gross anemia, bandemia, or significant electrolyte imbalance. Troponin 1 is negative. Transaminases are nondiagnostic. Urine is without evidence of infection. She remained in normal sinus rhythm on a monitoring coordinator. X-ray was reviewed by myself and my attending, and does not have a distinct pneumonia , although there are some right sided perihilar markings that could be an early pneumonia or viral infection. On repeat examination the patient did feel much better, but continues to have the right-sided chest discomfort. Because of this and the possible x-ray findings I did elect to perform a CT scan, which is as above, and does not show acute PE. Overall the patient appears well discharge home. He does have wheezing on exam and certainly could have bronchitis or early pneumonia. I will start him on Zithromax and have him follow with his primary care physician. He will otherwise be treated conservatively and was invited back to the ER with any new , worsening, or concerning symptoms. The chart was completed utilizing [employer] Speech Voice Recognition Software. Grammatical errors, random word insertions, pronoun errors, and incomplete sentences are an occasional consequence of this system due to software limitations, ambient noise, and hardware issues. Any formal questions or concerns about the content, text, or information contained within the body of this dictation should be directly addressed to the provider for clarification. . Medical Decision Differential diagnosis includes, but is not limited to: Myocardial infarction, dysrhythmia, pericarditis, pneumothorax, aortic aneurysm/dissection, DVT/PE, anxiety, GERD, PUD, electrolyte imbalance, thyroid disorder, pneumonia, bronchitis, pancreatitis, and others Impression Primary Impression: Right-sided chest pain Additional Impression: Lightheadedness Departure Information Dispostion Home / Self-Care Condition GOOD Prescriptions Azithromycin (Zithromax) 250 Mg Tab 250 MG PO DAILY for 4 Days, #4 TAB Prov: Dniesh Bertrand PA-C 12/01/17 Forms HOME CARE DOCUMENTATION FORM, IMPORTANT VISIT INFORMATION Patient Instructions My [facility] Additional Instructions You were seen and evaluated today on an emergency basis only. This is not a substitute for, or an effort to provide, complete comprehensive medical care. It is not possible to recognize and treat all injuries or illnesses in a single emergency department visit. For this reason it is recommended that you followup with your primary care physician in the next week for recheck of your condition. For baseline pain relief you may alternate ibuprofen and acetaminophen every 4 hours for pain control. Take 600 mg ibuprofen (Advil) and then 4 hours later take 1000 mg acetaminophen (Tylenol). Do not take more than 3000 mg acetaminophen in a single day. Take Zithromax 250 mg daily for the next 4 days. You are welcome to return to the emergency department anytime with new, worsening, or concerning symptoms. Problem Qualifiers
--- NOTE | 2017-12-01 06:48 | DIAGNOSTIC IMAGING REPORT ---
CHEST 2 VIEWS ROUTINE CLINICAL HISTORY: Chills. Wheezing dyspnea COMPARISON STUDY: 10/04/2017 FINDINGS: The bones soft tissues and hemidiaphragms are normal. The cardiomediastinal silhouette is normal. The lungs are clear. The pulmonary vasculature is normal. IMPRESSION: Negative chest. The above report was generated using voice recognition software. It may contain grammatical, syntax or spelling errors. Electronically signed by: Amadou Diana M.D. 12/01/2017 6:47 AM Dictated Date/Time: 12/01/2017 6:46 AM
--- NOTE | 2017-12-01 07:12 | DIAGNOSTIC IMAGING REPORT ---
(CHEST FOR PE) ANGIO WITH CT DOSE: 967.33 mGy.cm HISTORY: 32 years-old Male acute atypical right-sided chest pain. TECHNIQUE: Multiple CTA images of the chest were obtained after the intravenous administration of 119 ml Optiray 320. Coronal and sagittal MIPS were obtained from the axial data set and were submitted for review. A dose lowering technique was utilized adhering to the principles of ALARA. COMPARISON: Chest radiograph 11/30/2017 FINDINGS: CTA: The study is limited secondary to motion artifact and contrast bolus timing. The heart is normal in size without pericardial effusion. Thoracic aorta is normal in both course and caliber without aneurysm or dissection. The pulmonary arterial tree is not well opacified, notably the segmental and subsegmental branches. No central pulmonary embolus identified. CT CHEST: Thyroid appears homogeneous. No pathologic adenopathy identified. There is no pneumothorax, pleural effusion, focal airspace consolidation or overt pulmonary edema. No suspicious pulmonary nodules or masses identified. Minimal dependent groundglass opacity of the right upper lobe is noted. The central airways are patent. No acute abnormality of the imaged upper abdomen. Soft tissues are unremarkable. The bones appear to be intact. IMPRESSION: 1. Limited study secondary to patient motion artifact and contrast bolus timing. No acute aortic pathology or central pulmonary embolus identified. 2. Minimal subsegmental groundglass opacity of the right upper lobe suggests atelectasis or mild pneumonitis. 3. No lobar airspace consolidation or pathologic adenopathy identified. The above report was generated using voice recognition software. It may contain grammatical, syntax or spelling errors. Electronically signed by: Fermin Burns M.D. 12/01/2017 7:11 AM Dictated Date/Time: 12/01/2017 7:05 AM
== END 2017-12-01 02:08 | disposition home or self-care (01) ==
LOC: C.EDB 20:56 → C.EDA 12-01 02:08
DX: R07.9 Chest pain, unspecified (principal); R42 Dizziness and giddiness; Z83.3 Family history of diabetes mellitus; Z82.49 Family history of ischemic heart disease and other diseases of the circulatory system; F17.200 Nicotine dependence, unspecified, uncomplicated

== ENCOUNTER 2017-12-05 12:18 | Observation (INO) | payer OTHER ==
[~2017-12-05] VITALS: Ht 193 cm; Wt 208.4 kg
[~2017-12-05 12:18] MED LIST changes: +AZIT250T PO
[2017-12-05 13:33] LABS: BASO % 0.4 %; BASO ABS # 0.03 K/uL (0-0.2); EOS % 1.4 %; HEMATOCRIT 43.6 % (42-52); HEMOGLOBIN 14.6 g/dL (14.0-18.0); IG# 0.02 K/uL (0.00-0.02); LYMPH ABS # 2.16 K/uL (1.2-3.4); MEAN CELL VOLUME 84.3 fL (80-100); MEAN CORPUSCULAR HEMOGLOBIN 28.2 pg (25-34); MEAN CORPUSCULAR HGB CONC 33.5 g/dl (32-36); MEAN PLATELET VOLUME 9.5 fL (7.4-10.4); MONO % 6.1 %; MONO ABS # 0.44 K/uL (0.11-0.59); NEUT % 61.8 %; NEUT ABS # 4.44 K/uL (1.4-6.5); PLATELET COUNT 255 K/uL (130-400); RED CELL DISTRIBUTION WIDTH SD 43.3 fL (36.4-46.3); WHITE BLOOD COUNT 7.19 K/uL (4.8-10.8)
--- NOTE | 2017-12-05 13:34 | DIAGNOSTIC IMAGING REPORT ---
CHEST ONE VIEW PORTABLE CLINICAL HISTORY: Atypical chest pain. Recent influenza. COMPARISON STUDY: No previous studies for comparison. FINDINGS: Examination is limited due to the patient's large body habitus. Indistinctness of the left cardiac border likely related to technical factors. There is no failure. There is no lobar consolidation. There are no definite pleural effusions.[ IMPRESSION: Slightly limited study due to the patient's large body habitus. No acute findings. Electronically signed by: Arash Joe M.D. 12/05/2017 1:33 PM Dictated Date/Time: 12/05/2017 1:32 PM
[2017-12-05 13:44] LABS: INR 0.9 (0.9-1.1); PTT PATIENT 24.5 SECONDS (21.0-31.0)
[2017-12-05 14:03] LABS: ALBUMIN 3.2 gm/dl (3.4-5.0); ALKALINE PHOSPHATASE 86 U/L (45-117); ALT/SGPT 39 U/L (12-78); AST/SGOT 14 U/L (15-37); BLOOD UREA NITROGEN 11 mg/dl (7-18); CARBON DIOXIDE 27 mmol/L (21-32); GLUCOSE 101 mg/dl (70-99); SODIUM 138 mmol/L (136-145); TOTAL PROTEIN 7.5 gm/dl (6.4-8.2)
[2017-12-05 14:09] LABS: CKMB < 0.5 ng/ml (0.5-3.6)
[2017-12-05] MEDS ORDERED: KETOROLAC TROMETHAMINE 30 MG/ML VIAL IV STA (14:12)
[2017-12-05] MEDS ORDERED: IBUP-1105 PO (14:35)
--- NOTE | 2017-12-05 16:05 | DIAGNOSTIC IMAGING REPORT ---
BILATERAL LOWER EXTREMITY VENOUS DOPPLER HISTORY: Acute lower extremity pain Lower extremity pain, with dyspnea COMPARISON STUDY: CTA of the chest 12/01/2017. FINDINGS: There is normal compressibility, flow, and augmentation within the bilateral lower extremity deep venous systems. Ovoid hypoechoic mildly complex structure of the left popliteal fossa measures 4.9 x 1.0 x 2.6 cm suggesting Rivera's cyst. IMPRESSION: No sonographic evidence of deep venous thrombosis within the right or left lower extremity. Electronically signed by: Fermin Burns M.D. 12/05/2017 4:03 PM Dictated Date/Time: 12/05/2017 4:02 PM
--- NOTE | 2017-12-05 17:12 | EMERGENCY ROOM VISIT NOTE ---
History First contact with patient: 12:45 Chief Complaint: SHORTNESS OF BREATH Stated Complaint: SHORTNESS OF BREATH Nursing Triage Summary: Pt states he woke up SOB today, pt a/ox4, VARGAS, lungs CTA, pt obese, family at . History of Present Illness The patient is a 32 year old male who presents to the Emergency Room via ambulance with complaints of "shortness of breath". The patient states that he has been experiencing shortness of breath for the past few days, but this morning around 9 AM developed midsternal chest pain that is worse with deep inspiration and feels like a pressure. There is associated lightheadedness, as well as chills. He also notes calf pain. He was seen here last week and diagnosed with pneumonia, and placed upon antibiotic. Last dose of this will be tomorrow. He has a history of diabetes. The chest pain worsened at 11 AM. He also smokes. Review of Systems A complete 10-point Review of Systems was discussed with the patient, with pertinent positives and negatives listed in the History of Present Illness. All remaining Review of Systems questions can be considered negative unless otherwise specified. Past Medical/Surgical History Medical Problems: (1) Acute hyperglycemia (2) Chest pain (3) Depression (4) Forehead laceration (5) Post-tussive emesis (6) Sprain of knee (7) Wrist pain, right Family History Diabetes mellitus Heart disease Social History Smoking Status: Current Every Day Smoker Drug Use: none Marital Status: in relationship Housing Status: lives with family Occupation Status: employed Current/Historical Medications Scheduled Azithromycin (Zithromax), 250 MG PO DAILY Ibuprofen (Ibuprofen), 200 MG PO UD Metformin Hcl (Glucophage), 1,000 MG PO BID Scheduled PRN Albuterol Hfa (Ventolin Hfa), 2 PUFFS INH DIRECTED PRN for Shortness of Breath Physical Exam Vital Signs Date Time Temp Pulse Resp B/P (MAP) Pulse Ox O2 Delivery O2 Flow Rate FiO2 12/05/17 16:34 89 20 129/81 96 Room Air 12/05/17 15:10 72 20 142/68 94 Room Air 12/05/17 14:13 86 12/05/17 13:24 82 20 140/76 94 Room Air 12/05/17 12:53 95 Room Air 12/05/17 12:31 95 Room Air 12/05/17 12:29 95 Room Air 12/05/17 12:29 36.7 88 20 159/84 95 Room Air Physical Exam VITAL SIGNS - Vital signs and nursing notes were reviewed. Stable. GENERAL - 32-year-old male appearing his stated age who is in no acute distress. Communicates well with provider and answers questions appropriately. SKIN - Without rashes. No petechial or meningeal rash. HEAD - NC/AT. EYES - PERRL with EOMI bilaterally. Sclera anicteric. EARS - No deformities of external structures noted on gross examination bilaterally. NOSE - Midline and without cyanosis. No epistaxis or purulent drainage noted. MOUTH/OROPHARYNX - Without perioral cyanosis. NECK - Neck with FROM. Supple to palpation. LUNGS - Chest wall symmetric without accessory muscle use, intercostals retractions, or central cyanosis. Normal vesicular breath sounds CTA B/L. No wheezes, rales, or rhonchi appreciated. CARDIAC - RRR with S1/S2. No murmur, rubs, or gallops appreciated. MUSCULOSKELETAL: Minimal tenderness to the anterior chest with palpation. EXTREMITIES -no calf tenderness noted. Medical Decision & Procedures ER Provider Diagnostic Interpretation: CHEST ONE VIEW PORTABLE CLINICAL HISTORY: Atypical chest pain. Recent influenza. COMPARISON STUDY: No previous studies for comparison. FINDINGS: Examination is limited due to the patient's large body habitus. Indistinctness of the left cardiac border likely related to technical factors. There is no failure. There is no lobar consolidation. There are no definite pleural effusions.[ IMPRESSION: Slightly limited study due to the patient's large body habitus. No acute findings. Electronically signed by: Arash Joe M.D. 12/05/2017 1:33 PM Dictated Date/Time: 12/05/2017 1:32 PM BILATERAL LOWER EXTREMITY VENOUS DOPPLER HISTORY: Acute lower extremity pain Lower extremity pain, with dyspnea COMPARISON STUDY: CTA of the chest 12/01/2017. FINDINGS: There is normal compressibility, flow, and augmentation within the bilateral lower extremity deep venous systems. Ovoid hypoechoic mildly complex structure of the left popliteal fossa measures 4.9 x 1.0 x 2.6 cm suggesting Rivera's cyst. IMPRESSION: No sonographic evidence of deep venous thrombosis within the right or left lower extremity. Electronically signed by: Fermin Burns M.D. 12/05/2017 4:03 PM Dictated Date/Time: 12/05/2017 4:02 PM Laboratory Results 12/05/17 13:05 Red Blood Count 5.17, Mean Corpuscular Volume 84.3, Mean Corpuscular Hemoglobin 28.2, Mean Corpuscular Hemoglobin Concent 33.5, Mean Platelet Volume 9.5, Neutrophils (%) (Auto) 61.8, Lymphocytes (%) (Auto) 30.0, Monocytes (%) (Auto) 6.1, Eosinophils (%) (Auto) 1.4, Basophils (%) (Auto) 0.4, Neutrophils # (Auto) 4.44, Lymphocytes # (Auto) 2.16, Monocytes # (Auto) 0.44, Eosinophils # (Auto) 0.10, Basophils # (Auto) 0.03 12/05/17 13:05 Test 12/05/17 13:05 12/05/17 14:15 12/05/17 16:18 White Blood Count 7.19 K/uL (4.8-10.8) Red Blood Count 5.17 M/uL (4.7-6.1) Hemoglobin 14.6 g/dL (14.0-18.0) Hematocrit 43.6 % (42-52) Mean Corpuscular Volume 84.3 fL (80-100) Mean Corpuscular Hemoglobin 28.2 pg (25-34) Mean Corpuscular Hemoglobin Concent 33.5 g/dl (32-36) Platelet Count 255 K/uL (130-400) Mean Platelet Volume 9.5 fL (7.4-10.4) Neutrophils (%) (Auto) 61.8 % Lymphocytes (%) (Auto) 30.0 % Monocytes (%) (Auto) 6.1 % Eosinophils (%) (Auto) 1.4 % Basophils (%) (Auto) 0.4 % Neutrophils # (Auto) 4.44 K/uL (1.4-6.5) Lymphocytes # (Auto) 2.16 K/uL (1.2-3.4) Monocytes # (Auto) 0.44 K/uL (0.11-0.59) Eosinophils # (Auto) 0.10 K/uL (0-0.5) Basophils # (Auto) 0.03 K/uL (0-0.2) RDW Standard Deviation 43.3 fL (36.4-46.3) RDW Coefficient of Variation 14.0 % (11.5-14.5) Immature Granulocyte % (Auto) 0.3 % Immature Granulocyte # (Auto) 0.02 K/uL (0.00-0.02) Prothrombin Time 9.9 SECONDS (9.0-12.0) Prothromb Time International Ratio 0.9 (0.9-1.1) Activated Partial Thromboplast Time 24.5 SECONDS (21.0-31.0) Partial Thromboplastin Ratio 0.9 Anion Gap 7.0 mmol/L (3-11) Est Creatinine Clear Calc Drug Dose 286.7 ml/min Estimated GFR () 142.7 Estimated GFR (Non- 123.1 BUN/Creatinine Ratio 15.1 (10-20) Calcium Level 9.0 mg/dl (8.5-10.1) Magnesium Level 2.4 mg/dl (1.8-2.4) Total Bilirubin 0.4 mg/dl (0.2-1) Aspartate Amino Transf (AST/SGOT) 14 U/L (15-37) Alanine Aminotransferase (ALT/SGPT) 39 U/L (12-78) Alkaline Phosphatase 86 U/L (45-117) Total Creatine Kinase 119 U/L (39-308) Creatine Kinase MB < 0.5 ng/ml (0.5-3.6) Creatine Kinase MB Ratio (0-3.0) Total Protein 7.5 gm/dl (6.4-8.2) Albumin 3.2 gm/dl (3.4-5.0) Globulin 4.3 gm/dl (2.5-4.0) Albumin/Globulin Ratio 0.7 (0.9-2) Thyroid Stimulating Hormone (TSH) 1.410 uIu/ml (0.300-4.500) Urine Color YELLOW Urine Appearance CLEAR (CLEAR) Urine pH 6.5 (4.5-7.5) Urine Specific [place] 1.020 (1.000-1.030) Urine Protein NEG (NEG) Urine Glucose (UA) NEG (NEG) Urine Ketones NEG (NEG) Urine Occult Blood NEG (NEG) Urine Nitrite NEG (NEG) Urine Bilirubin NEG (NEG) Urine Urobilinogen NEG (NEG) Urine Leukocyte Esterase NEG (NEG) Troponin I < 0.015 ng/ml (0-0.045) Medications Administered Medications (Trade) Dose Ordered Sig/Victorino Route Start Time Stop Time Status Last Admin Dose Admin Ketorolac Tromethamine (Toradol Inj) 30 mg NOW STAT IV 12/05/17 14:12 12/05/17 14:13 DC 12/05/17 14:12 30 MG Medical Decision Patient was seen and evaluated as above. He presents to us today with dyspnea, chest pain that began at 9 AM and worse at 11 AM, as well as overall chills/ aches. He has a history of diabetes. After obtaining a thorough history and physical examination the above work up was performed. Chest x-ray reveals no pneumonia. Bedside EKG per my interpretation reveals normal sinus rhythm. No ectopy or ischemic change. No evidence of ND on this EKG. Troponin negative 2. No leukocytosis or anemia. Coags normal. Metabolic panel reveals no kidney function abnormality. TSH normal. Urine negative. The concern is that the patient is presenting to us today with chest pain, and his blood work as well as chest x-ray did not reveal any infectious findings. He is afebrile. With his risk factors of diabetes, and obesity with his clinical presentation do believe that inpatient management to rule out cardiac etiology is important. Case was discussed with the attending physician and subsequently the hospitalist. Please refer to for the documentation regarding his stay. In the evaluation and treatment of this patient the following differential diagnoses were entertained: ND, PE, pneumonia, pericarditis, costochondritis, among others. Impression Primary Impression: Chest pain Departure Information Referrals Carine Jung M.D. (MEDICAL) (PCP) Patient Instructions My [facility]
[2017-12-05] MEDS ORDERED: DEXTROSE 50% 50 ML SYR IV PRN (17:45)
[2017-12-05] MEDS ORDERED: ONDANSETRON INJ 2 MG/ML 2 ML VIAL IV PRN (17:45)
[2017-12-05] MEDS ORDERED: MAGNESIUM HYDROXIDE SUSP 30 ML UDC PO PRN (17:45)
[2017-12-05] MEDS ORDERED: GLUCOSE 10 TABS/TUBE PO PRN (17:45)
[2017-12-05] MEDS ORDERED: ACETAMINOPHEN 325 MG TAB PO PRN (17:45)
[2017-12-05] MEDS ORDERED: GLUCAGON FOR INJ 1 MG VIAL SQ PRN (17:45)
[2017-12-05] MEDS ORDERED: GLUCOSE 40% GEL 15 GM TUBE PO PRN (17:45)
[2017-12-05] MEDS ORDERED: ALUMINUM/MAGNESIUM/SIMETH (MAALOX MAX) 30 ML UDC PO PRN (17:45)
[2017-12-05] MEDS ORDERED: LSN5 PEG (17:48)
[2017-12-05] MEDS ORDERED: METF500T PO (17:48)
[2017-12-05] MEDS ORDERED: ALBUTEROL HFA 8 GM INHALER INH PRN (18:00)
[2017-12-05] MEDS ORDERED: IV FLUIDS COMPLETED PRN (18:45)
--- NOTE | 2017-12-05 18:48 | History and Physical ---
History & Physical Date & Time of Service: Dec 05, 2017 at 18:29 Chief Complaint: Chest Pain Primary Care Physician: Carine Jung M.D. (MEDICAL) History of Present Illness Source: patient, clinic records, hospital records This is a 32yoM with a PMH of DM II, tobacco use disorder, asthma and bipolar I disorder who presents with chest pain beginning this morning. Chest pain began at 9am and is described as 4/10 central, substernal "pressure" that is non- radiating. Worse with deep inspiration but no change noted with exertion. No associated diaphoresis, SOB, nausea or vomiting. Does endorse some lightheadedness and chills as well as bilateral calf cramping when he stands. Patient was in the ER last week on 11/30 for SOB, when he was diagnosed with PNA and sent home on Zithromax. CTA chest/thorax performed at that time did not show a PE, but study was limited 2/2 patient motion artifact. SOB has improved significantly with abx treatment and use of albuterol PRN. Patient is to complete course of antibiotic tonight. Denies personal history of heart disease , but father of [place] at age 53. Past Medical/Surgical History Medical Problems: (1) ADD (attention deficit disorder) Status: Chronic (2) Asthma, exercise induced Status: Chronic (3) Bipolar I disorder Status: Chronic (4) Depression Status: Chronic (5) Diabetes mellitus, type II Status: Chronic (6) H/O fracture of wrist Status: Resolved (7) Morbid obesity Status: Chronic (8) Tobacco use disorder Status: Chronic Surgical Problems: (1) S/P appendectomy Status: Chronic Social History Problems: (1) Wrist pain, right Status: Resolved Family History Diabetes mellitus Heart disease Social History Smoking Status: Current Every Day Smoker Drug Use: none Marital Status: in relationship Housing status: lives with family Occupational Status: employed Allergies Coded Allergies: Aspirin (Verified Allergy, Mild, 12/05/17) Cephalosporins (Verified Allergy, Unknown, UNKNOWN, 12/05/17) Penicillins (Verified Allergy, Unknown, UNSURE, 12/05/17) Sulfa Drugs (Verified Allergy, Unknown, ., 12/05/17) Sulfamethoxazole w/Trimethoprim (Verified Allergy, Unknown, ., 12/05/17) Home Medications Scheduled Lisinopril (Lisinopril), 1 TAB PO DAILY Metformin Hcl (Glucophage), 1,000 MG PO BID Scheduled PRN Albuterol Hfa (Ventolin Hfa), 2 PUFFS INH DIRECTED PRN for Shortness of Breath Ibuprofen (Ibuprofen), 200 MG PO Q4H PRN for Pain Review of Systems Ten systems reviewed and negative except as noted in the HPI. Physical Exam Vital Signs Date Time Temp Pulse Resp B/P (MAP) Pulse Ox O2 Delivery O2 Flow Rate FiO2 12/05/17 18:05 36.3 82 20 124/77 96 Room Air 12/05/17 17:32 81 12/05/17 16:34 89 20 129/81 96 Room Air 12/05/17 15:10 72 20 142/68 94 Room Air 12/05/17 14:13 86 12/05/17 13:24 82 20 140/76 94 Room Air 12/05/17 12:53 95 Room Air 12/05/17 12:31 95 Room Air 12/05/17 12:29 95 Room Air 12/05/17 12:29 36.7 88 20 159/84 95 Room Air General Appearance: WD/WN, no apparent distress, + obese Head: normocephalic, atraumatic Eyes: normal inspection, PERRL, sclerae normal ENT: normal ENT inspection, hearing grossly normal, pharynx normal (moist mucous membranes ) Neck: supple, thyroid normal, no JVD, trachea midline Respiratory/Chest: chest non-tender, lungs clear, normal breath sounds, no respiratory distress, no accessory muscle use, + decreased breath sounds (2/2 habitus ) Cardiovascular: regular rate, rhythm, no murmur, normal peripheral pulses Abdomen/GI: non tender, soft, no organomegaly Back: normal inspection Extremities/Musculoskelatal: normal inspection, no calf tenderness, no pedal edema 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, no motor/sensory deficits, alert, normal mood/affect, oriented x 3 Skin: normal color, warm/dry Diagnostics Laboratory Results Results Past 24 Hours Test 12/05/17 13:05 12/05/17 14:15 12/05/17 16:18 Range/Units White Blood Count 7.19 4.8-10.8 K/uL Red Blood Count 5.17 4.7-6.1 M/uL Hemoglobin 14.6 14.0-18.0 g/dL Hematocrit 43.6 42-52 % Mean Corpuscular Volume 84.3 80-100 fL Mean Corpuscular Hemoglobin 28.2 25-34 pg Mean Corpuscular Hemoglobin Concent 33.5 32-36 g/dl Platelet Count 255 130-400 K/uL Mean Platelet Volume 9.5 7.4-10.4 fL Neutrophils (%) (Auto) 61.8 % Lymphocytes (%) (Auto) 30.0 % Monocytes (%) (Auto) 6.1 % Eosinophils (%) (Auto) 1.4 % Basophils (%) (Auto) 0.4 % Neutrophils # (Auto) 4.44 1.4-6.5 K/uL Lymphocytes # (Auto) 2.16 1.2-3.4 K/uL Monocytes # (Auto) 0.44 0.11-0.59 K/uL Eosinophils # (Auto) 0.10 0-0.5 K/uL Basophils # (Auto) 0.03 0-0.2 K/uL RDW Standard Deviation 43.3 36.4-46.3 fL RDW Coefficient of Variation 14.0 11.5-14.5 % Immature Granulocyte % (Auto) 0.3 % Immature Granulocyte # (Auto) 0.02 0.00-0.02 K/uL Prothrombin Time 9.9 9.0-12.0 SECONDS Prothromb Time International Ratio 0.9 0.9-1.1 Activated Partial Thromboplast Time 24.5 21.0-31.0 SECONDS Partial Thromboplastin Ratio 0.9 Sodium Level 138 136-145 mmol/L Potassium Level 4.0 3.5-5.1 mmol/L Chloride Level 104 98-107 mmol/L Carbon Dioxide Level 27 21-32 mmol/L Anion Gap 7.0 3-11 mmol/L Blood Urea Nitrogen 11 7-18 mg/dl Creatinine 0.70 0.60-1.40 mg/dl Est Creatinine Clear Calc Drug Dose 286.7 ml/min Estimated GFR () 142.7 Estimated GFR (Non- 123.1 BUN/Creatinine Ratio 15.1 10-20 Random Glucose 101 70-99 mg/dl Calcium Level 9.0 8.5-10.1 mg/dl Magnesium Level 2.4 1.8-2.4 mg/dl Total Bilirubin 0.4 0.2-1 mg/dl Aspartate Amino Transf (AST/SGOT) 14 15-37 U/L Alanine Aminotransferase (ALT/SGPT) 39 12-78 U/L Alkaline Phosphatase 86 45-117 U/L Total Creatine Kinase 119 39-308 U/L Creatine Kinase MB < 0.5 0.5-3.6 ng/ml Creatine Kinase MB Ratio 0-3.0 Troponin I < 0.015 < 0.015 0-0.045 ng/ml Total Protein 7.5 6.4-8.2 gm/dl Albumin 3.2 3.4-5.0 gm/dl Globulin 4.3 2.5-4.0 gm/dl Albumin/Globulin Ratio 0.7 0.9-2 Thyroid Stimulating Hormone (TSH) 1.410 0.300-4.500 uIu/ml Urine Color YELLOW Urine Appearance CLEAR CLEAR Urine pH 6.5 4.5-7.5 Urine Specific [place] 1.020 1.000-1.030 Urine Protein NEG NEG Urine Glucose (UA) NEG NEG Urine Ketones NEG NEG Urine Occult Blood NEG NEG Urine Nitrite NEG NEG Urine Bilirubin NEG NEG Urine Urobilinogen NEG NEG Urine Leukocyte Esterase NEG NEG Diagnostic Radiology CXR: IMPRESSION: Slightly limited study due to the patient's large body habitus. No acute findings. Bilateral lower extremity venous dopplers: IMPRESSION: No sonographic evidence of deep venous thrombosis within the right or left lower extremity. EKG Normal sinus rhythm Normal ECG Impression Assessment and Plan This is a 32yoM with a PMH of DM II, tobacco use disorder, asthma and bipolar I disorder who presents with chest pain beginning this morning. Chest pain: -Likely a pleuritic component with h/o asthma, resolving pneumonitis -R/o ACS; risk factors include obesity, DM II, tobacco use -Initial troponin negative -EKG-normal sinus rhythm, no acute ischemic changes -CXR- No acute findings -Trend serial cardiac enzymes -Chest/thorax CTA from 11/30 without PE -Check echo -Repeat EKG in am -Fasting lipid panel, a1c pending -Aspirin allergy: h/o respiratory distress with aspirin as a child. Hold off for now. -Consider stress test if concern for cardiac etiology in AM -IV Toradol PRN for inflammatory pain H/o PNA/pneumonitis: resolving -No wheezing appreciated on exam. No SOB -No leukocytosis -Complete PO course of Zithromax Bilateral calf pain: -With exertion -Dopplers negative for DVT -Encouraged increased water intake, ambulation DM II: -A1c pending -Hold oral agent -SSI while in-patient -Cont lisinopril for renal protection -BSG AC HS Tobacco use disorder: -Encouraged smoking cessation Bipolar I, depression: -Stable -Not on medication currently -Follow up out-patient at [facility] DVT Ppx: SCDs Code status: FULL PCP: Erich Dispo: Observation telemetry. Plan to return home once medically stable. Patient seen in collaboration with Dr. Suarez. Please see addendum. Attending Addendum. Pt was seen and examined. Agreed with Heather HERNANDEZ physical and assessment and Plan. 32 yoM with a PMH of DM II, tobacco use disorder, asthma and bipolar I disorder presents with chest pain starting this morning. Described chest pain pressure like, non- radiating, grade 4/10 as 4/10 central. Pt said that pain is worse with deep inspiration. Denies any SOB, Palpitation dizziness and fever. Exam General- No acute distress, obese Head- atraumatic Eyes- PERRL, EOMI ENT- oropharynx clear Neck- supple, no JVD Lungs- clear to auscultation Heart- regular rhythm Abdomen- normal bowel sounds, soft Extremities- no calf tenderness Neuro- alert, oriented x 3; PERRL Skin- warm & dry A/P Chest pain Pleuritic in feature CXR showed no acute findings. EKG showed no ischemic changes Tropx2 negative Continue monitor trop Check Echo in am Continue monitor in tele Continue Toradol for pain Please refer to Heather HERNANDEZ documentation for other problems. Jayla Suarez Resuscitation Status VTE Prophylaxis Will order VTE Prophylaxis: Yes
[2017-12-05] MEDS ORDERED: LSN5 PO (19:06)
[2017-12-05 19:07] VITALS: BP 138/78; PULSE 81; TEMP 36.6; O2SAT 94
[2017-12-05 19:42] LABS: INFLUENZA B ANTIGEN Neg for Influ B (NEG)
[2017-12-05 20:00] VITALS: O2SAT 94
[2017-12-05 20:16] VITALS: BP 138/78; PULSE 81; TEMP 36.6; O2SAT 94; BMI 55.8
[2017-12-05] MEDS ORDERED: COUGH DROP (SUGAR FREE) LOZ 24 LOZ/1 BOX LOZ PRN (21:00)
[2017-12-05] MEDS: INSULIN ASPART 100 UNITS/ML 3 ML PEN SC SCH (21:00)
[2017-12-05] MEDS ORDERED: AZITHROMYCIN 250 MG TAB PO SCH (21:00)
[2017-12-05] MEDS ORDERED: PNEUMOCOCCAL POLYSACCHARIDES 25 MCG/0.5 ML VIAL/SYR IM. ONE (21:15)
[2017-12-05] MEDS ORDERED: PNEUMOCOCCAL ADMINISTRATION CHARGE ONE (21:15)
[2017-12-05] MEDS ORDERED: INFLUENZA VIRUS QUAD VACCINE 0.5 ML SYR IM. ONE (21:15)
[2017-12-05] MEDS ORDERED: INFLUENZA ADMINISTRATION CHARGE ONE (21:15)
[2017-12-05] MEDS: KETOROLAC TROMETHAMINE 30 MG/ML VIAL IV PRN (22:36)
[2017-12-05 23:47] VITALS: BP 118/62; PULSE 73; TEMP 36.9; O2SAT 94
[2017-12-06] VITALS (8 sets, daily range): BP systolic 113–139; BP diastolic 63–80; PULSE 69–86; TEMP 36.5–36.8; O2SAT 91–94
[2017-12-06 03:41] LABS: HEMATOCRIT 42.4 % (42-52); HEMOGLOBIN 13.9 g/dL (14.0-18.0); MEAN CELL VOLUME 84.8 fL (80-100); MEAN CORPUSCULAR HEMOGLOBIN 27.8 pg (25-34); MEAN CORPUSCULAR HGB CONC 32.8 g/dl (32-36); MEAN PLATELET VOLUME 9.9 fL (7.4-10.4); PLATELET COUNT 241 K/uL (130-400); RED CELL DISTRIBUTION WIDTH CV 13.9 % (11.5-14.5); WHITE BLOOD COUNT 8.56 K/uL (4.8-10.8)
[2017-12-06 03:59] LABS: BLOOD UREA NITROGEN 15 mg/dl (7-18); CALCIUM 8.2 mg/dl (8.5-10.1); CARBON DIOXIDE 27 mmol/L (21-32); CREATININE 0.81 mg/dl (0.60-1.40); GLUCOSE 102 mg/dl (70-99); POTASSIUM 3.8 mmol/L (3.5-5.1); SODIUM 137 mmol/L (136-145)
[2017-12-06 04:04] LABS: CHOLESTEROL 160 mg/dl (0-200); LDL CHOLESTEROL CALCULATED 93 mg/dl
[2017-12-06 06:09] LABS: HEMOGLOBIN A1C 6.3 % (4.5-5.6)
[2017-12-06] MEDS: LISINOPRIL 5 MG TAB PO SCH (08:47)
[2017-12-06] MEDS: INSULIN ASPART 100 UNITS/ML 3 ML PEN SC SCH ×4 (08:50→21:00)
[2017-12-06] MEDS ORDERED: LISINOPRIL 5 MG TAB PEG SCH (09:00)
--- NOTE | 2017-12-06 14:02 | Progress Note ---
Internal Med Progress Note Date of Service: Dec 06, 2017. Provider Documentation: SUBJECTIVE: The patient was seen and examined Admitted with weakness and Pleuritic type of Chest pain Complains of generalized weakness Chest pain on deep inspiration only OBJECTIVE: Vital Signs-as noted below Exam: General-Obese, minimal distress at rest Eyes-Normal ENT-normal Neck-supple Lungs-Decreased breath sound bilaterally Heart-Regular Abdomen-benign Extremities-Trace edema bilaterally Neuro-AAOx3 Lab data as noted below. ASSESSMENT & PLAN: This is a 32yoM with a PMH of DM II, tobacco use disorder, asthma and bipolar I disorder who presents with chest pain beginning this morning. Pleurisy Chest pain: -Likely a pleuritic component with h/o asthma, resolving pneumonitis -R/o ACS; risk factors include obesity, DM II, tobacco use -Serial Troponis are negative -EKG-normal sinus rhythm, no acute ischemic changes -CXR- No acute findings -Chest/thorax CTA from 11/30 without PE -Check echo-pending -Fasting lipid panel, a1c pending-6.3 and Cholesterol-unremarkable -Aspirin allergy: h/o respiratory distress with aspirin as a child. Hold off for now. -IV Toradol PRN for inflammatory pain -Likely discharge tomorrow H/o PNA/pneumonitis: resolving -No wheezing appreciated on exam. No SOB -No leukocytosis -Complete PO course of Zithromax -no new antibiotic for now Bilateral calf pain: -With exertion -Dopplers negative for DVT -Encouraged increased water intake, ambulation DM II: -A1c pending -6.3 -Controlled -Hold oral agent -SSI while in-patient Tobacco use disorder: -Encouraged smoking cessation Bipolar I, depression: -Stable -Not on medication currently -Follow up out-patient at [facility] DVT Ppx: SCDs Code status: FULL PCP: Erich Dispo: Observation telemetry. Plan to return home once medically stable. Vital Signs: Date Time Temp Pulse Resp B/P (MAP) Pulse Ox O2 Delivery O2 Flow Rate FiO2 12/06/17 11:47 36.8 78 16 139/73 (95) 92 Room Air 12/06/17 11:42 93 Room Air 12/06/17 08:00 93 Room Air 12/06/17 07:44 36.5 69 16 138/63 (88) 93 Room Air 12/06/17 04:00 Room Air 12/06/17 03:56 36.5 76 18 120/73 (89) 94 Room Air 12/06/17 00:00 Room Air 12/05/17 23:47 36.9 73 20 118/62 (80) 94 Room Air 12/05/17 20:16 36.6 81 20 138/78 94 Room Air 12/05/17 20:00 94 Room Air 12/05/17 19:07 36.6 81 20 138/78 (98) 94 Room Air 12/05/17 18:05 36.3 82 20 124/77 96 Room Air 12/05/17 17:32 81 12/05/17 16:34 89 20 129/81 96 Room Air 12/05/17 15:10 72 20 142/68 94 Room Air 12/05/17 14:13 86 Lab Results: Results Past 24 Hours Test 12/05/17 14:15 12/05/17 16:18 12/05/17 18:54 12/05/17 19:10 Range/Units Urine Color YELLOW Urine Appearance CLEAR CLEAR Urine pH 6.5 4.5-7.5 Urine Specific [place] 1.020 1.000-1.030 Urine Protein NEG NEG Urine Glucose (UA) NEG NEG Urine Ketones NEG NEG Urine Occult Blood NEG NEG Urine Nitrite NEG NEG Urine Bilirubin NEG NEG Urine Urobilinogen NEG NEG Urine Leukocyte Esterase NEG NEG Troponin I < 0.015 0-0.045 ng/ml Bedside Glucose 96 70-99 mg/dl Influenza Type A Antigen Neg for Influ A NEG Influenza Type B Antigen Neg for Influ B NEG Test 12/05/17 21:03 12/06/17 03:19 12/06/17 07:07 12/06/17 11:25 Range/Units Troponin I < 0.015 < 0.015 0-0.045 ng/ml White Blood Count 8.56 4.8-10.8 K/uL Red Blood Count 5.00 4.7-6.1 M/uL Hemoglobin 13.9 14.0-18.0 g/dL Hematocrit 42.4 42-52 % Mean Corpuscular Volume 84.8 80-100 fL Mean Corpuscular Hemoglobin 27.8 25-34 pg Mean Corpuscular Hemoglobin Concent 32.8 32-36 g/dl RDW Standard Deviation 43.0 36.4-46.3 fL RDW Coefficient of Variation 13.9 11.5-14.5 % Platelet Count 241 130-400 K/uL Mean Platelet Volume 9.9 7.4-10.4 fL Sodium Level 137 136-145 mmol/L Potassium Level 3.8 3.5-5.1 mmol/L Chloride Level 102 98-107 mmol/L Carbon Dioxide Level 27 21-32 mmol/L Anion Gap 8.0 3-11 mmol/L Blood Urea Nitrogen 15 7-18 mg/dl Creatinine 0.81 0.60-1.40 mg/dl Est Creatinine Clear Calc Drug Dose 247.7 ml/min Estimated GFR () 134.4 Estimated GFR (Non- 116.0 BUN/Creatinine Ratio 18.3 10-20 Random Glucose 102 70-99 mg/dl Estimated Average Glucose 134 mg/dl Hemoglobin A1c 6.3 4.5-5.6 % Calcium Level 8.2 8.5-10.1 mg/dl Triglycerides Level 183 0-150 mg/dl Cholesterol Level 160 0-200 mg/dl HDL Cholesterol 30 mg/dl LDL Cholesterol, Calculated 93 mg/dl VLDL Cholesterol, Calculated 37 mg/dl Cholesterol/HDL Ratio 5.3 Bedside Glucose 117 96 70-99 mg/dl
[2017-12-06] MEDS ORDERED: PERFLUTREN LIPID MICROSPHERE (DEFINITY) IV ONE (15:29)
--- NOTE | 2017-12-06 17:25 | ECHOCARDIOGRAM REPORT ---
*NOTICE TO RECEIVING DEMOCRAT AGENCY This information is strictly Confidential and protected under [place] law. [place] law prohibits you from making any further disclosure of this information unless further disclosure is expressly permitted by the written consent of the person to whom it pertains or is authorized by law. A general authorization for the release of medical or other information is not sufficient for this purpose. Hospital accepts no responsibility if the information is made available to any other person, INCLUDING THE PATIENT. Interpretation Summary * Name: BENSON GARCIA Study Date: 12/06/2017 02:02 PM * Patient Location: [facility] * : 1985 (M/d/yyyy) Gender: Male Height: 76 in * Age: 32 yrs Ethnicity: [place] Weight: 464 lb * Ordering Physician: Heather Schultz * Referring Physician: Self, Referred * Performed By: Apolonia Reaves RDCS * * Reason For Study: CHEST PAIN * BSA: 3.2 m2 * -- Conclusions -- * This study is technically limited due to poor acoustic windows. * Left ventricular systolic function is grossly normal. * Grossly normal cardiac valves. * The right heart was not well visualized. Procedure Details * A contrast injection of Definity was performed to improve assessment of LV function. * Contrast was injected into an intravenous site in the right arm. * One vial of Definity ultrasound contrast was diluted in normal saline to a total volume of 10 ml. A total of '1' ml of solution was administered during imaging. * Lot # [id number] of Definity utilized for procedure. * Expiration date 1 NOV 21. * The attending nurse who injected the contrast agent was ELEAZAR PRESSLEY RN. Left Ventricle * The left ventricle is grossly normal size. * Ejection Fraction = 50-55%. * The left ventricular ejection fraction is grossly normal. Right Ventricle * The right ventricle is not well visualized. Atria * The left atrium is not well visualized. * Right atrium not well visualized. Mitral Valve * The mitral valve is not well visualized. * Significant mitral regurgitation is absent. Tricuspid Valve * The tricuspid valve is not well visualized. Aortic Valve * The aortic valve is not well visualized. * No hemodynamically significant valvular aortic stenosis. * There is no significant aortic regurgitation. Pulmonic Valve * The pulmonic valve is not well visualized. Great Vessels * The aortic root and proximal ascending aorta are normal sized. MMode 2D Measurements and Calculations IVSd 1.3 cm IVSs 1.8 cm LVIDd 5.7 cm LVIDs 4.1 cm LVPWd 1.1 cm LVPWs 1.8 cm IVS/LVPW 1.2 FS 27.4 % EDV(Teich) 158.9 ml ESV(Teich) 75.3 ml EF(Teich) 52.6 % EDV(cubed) 183.4 ml ESV(cubed) 70.2 ml EF(cubed) 61.7 % % IVS thick 37.8 % % LVPW thick 61.8 % LV mass(C)d 283.9 grams LV mass(C)dI 89.6 grams/m\S\2 LV mass(C)s 317.2 grams LV mass(C)sI 100.1 grams/m\S\2 SV(Teich) 83.5 ml SI(Teich) 26.4 ml/m\S\2 SV(cubed) 113.2 ml SI(cubed) 35.7 ml/m\S\2 Ao root diam 2.9 cm Ao root area 6.6 cm\S\2 LA dimension 3.8 cm LA/Ao 1.3 LVAd ap4 33.2 cm\S\2 LVLd ap4 8.7 cm EDV(MOD-sp4) 101.9 ml EDV(sp4-el) 107.7 ml LVAs ap4 21.1 cm\S\2 LVLs ap4 7.7 cm ESV(MOD-sp4) 46.8 ml ESV(sp4-el) 48.9 ml EF(MOD-sp4) 54.1 % EF(sp4-el) 54.6 % LVAd ap2 35.5 cm\S\2 LVLd ap2 8.7 cm EDV(MOD-sp2) 119.0 ml EDV(sp2-el) 123.4 ml LVAs ap2 22.0 cm\S\2 LVLs ap2 7.7 cm ESV(MOD-sp2) 51.4 ml ESV(sp2-el) 53.8 ml EF(MOD-sp2) 56.8 % EF(sp2-el) 56.4 % LVLd %diff 0.03 % EDV(MOD-bp) 111.3 ml LVLs %diff -0.52 % ESV(MOD-bp) 48.6 ml EF(MOD-bp) 56.4 % SV(MOD-sp4) 55.1 ml SI(MOD-sp4) 17.4 ml/m\S\2 SV(MOD-sp2) 67.6 ml SI(MOD-sp2) 21.3 ml/m\S\2 SV(MOD-bp) 62.8 ml SI(MOD-bp) 19.8 ml/m\S\2 SV(sp4-el) 58.8 ml SI(sp4-el) 18.6 ml/m\S\2 SV(sp2-el) 69.6 ml SI(sp2-el) 22.0 ml/m\S\2 Doppler Measurements and Calculations MV E max charly 78.6 cm/sec MV dec time 0.29 sec Ao V2 max 108.1 cm/sec Ao max PG 4.7 mmHg Ao max PG (full) 1.3 mmHg LV V1 max PG 3.3 mmHg LV V1 max 91.5 cm/sec
[2017-12-06] MEDS: KETOROLAC TROMETHAMINE 30 MG/ML VIAL IV PRN (23:56)
[2017-12-07] VITALS (9 sets, daily range): BP systolic 110–152; BP diastolic 62–84; PULSE 71–84; TEMP 36.4–36.8; O2SAT 93–96; Ht 193 cm; Wt 208.4 kg
[2017-12-07] MEDS: LISINOPRIL 5 MG TAB PO SCH (08:42)
[2017-12-07] MEDS: INSULIN ASPART 100 UNITS/ML 3 ML PEN SC SCH ×4 (08:44→21:00)
[2017-12-07] MEDS: KETOROLAC TROMETHAMINE 30 MG/ML VIAL IV PRN (10:21)
[2017-12-07] MEDS ORDERED: IBUPROFEN 800 MG TAB PO ONE (10:21)
--- NOTE | 2017-12-07 12:25 | Progress Note ---
Internal Med Progress Note Date of Service: Dec 07, 2017. Provider Documentation: SUBJECTIVE: The patient was seen and examined Admitted with weakness and Pleuritic type of Chest pain Chest pain on deep inspiration only Still has the chest pain Complains of some dizziness on ambulation OBJECTIVE: Vital Signs-as noted below Exam: General-Very Obese No distress at rest Eyes-Normal ENT-normal Neck-supple Lungs-Decreased breath sound bilaterally Heart-Regular Abdomen-benign Extremities-Trace edema bilaterally Neuro-AAOx3 Lab data as noted below. ASSESSMENT & PLAN: This is a 32yoM with a PMH of DM II, tobacco use disorder, asthma and bipolar I disorder who presents with chest pain beginning this morning. Pleurisy Chest pain: -Likely a pleuritic component with h/o asthma, resolving pneumonitis -R/o ACS; risk factors include obesity, DM II, tobacco use -Serial Troponis are negative -EKG-normal sinus rhythm, no acute ischemic changes -CXR- No acute findings -Chest/thorax CTA from 11/30 without PE -Check echo-pending -Fasting lipid panel, a1c pending-6.3 and Cholesterol-unremarkable -Aspirin allergy: h/o respiratory distress with aspirin as a child. Hold off for now. -IV Toradol PRN for inflammatory pain -Will start Oral Ibuprofen -more ambulation and if reasonably well this Afternoon -will discharge H/o PNA/pneumonitis: resolving -No wheezing appreciated on exam. No SOB -No leukocytosis -Complete PO course of Zithromax -no new antibiotic for now Bilateral calf pain: -With exertion -Dopplers negative for DVT -Encouraged increased water intake, ambulation -denies any more pain DM II: -A1c pending -6.3 -Controlled -Hold oral agent -SSI while in-patient Tobacco use disorder: -Encouraged smoking cessation Bipolar I, depression: -Stable -Not on medication currently -Follow up out-patient at [facility] DVT Ppx: SCDs Code status: FULL PCP: Erich Dispo: Observation telemetry. Plan to return home once medically stable. Likely to be discharged this afternoon Vital Signs: Date Time Temp Pulse Resp B/P (MAP) Pulse Ox O2 Delivery O2 Flow Rate FiO2 12/07/17 11:16 36.8 75 16 94 Room Air 12/07/17 09:53 93 Room Air 12/07/17 08:48 36.7 82 22 148/84 (105) 93 Room Air 12/07/17 04:42 36.4 71 21 139/81 (100) 96 Room Air 12/07/17 04:00 Room Air 12/07/17 00:00 Room Air 12/06/17 23:37 36.7 73 21 138/80 (99) 91 Room Air 12/06/17 20:00 Room Air 12/06/17 19:39 36.8 86 20 130/77 (94) 93 Nasal Cannula 12/06/17 16:00 Room Air 12/06/17 15:34 36.8 75 20 113/71 (85) 94 Room Air Lab Results: Results Past 24 Hours Test 12/06/17 16:10 12/06/17 20:21 12/07/17 07:24 12/07/17 11:26 Range/Units Bedside Glucose 114 87 114 66 70-99 mg/dl Test 12/07/17 11:46 Range/Units Bedside Glucose 100 70-99 mg/dl
[2017-12-07] MEDS ORDERED: IBUPROFEN 800 MG TAB PO PRN (15:00)
[2017-12-08 04:36] VITALS: BP 102/65; PULSE 73; TEMP 36.5; O2SAT 99
[2017-12-08 07:22] VITALS: BP 113/71; PULSE 72; TEMP 36.8; O2SAT 97
[2017-12-08] MEDS: LISINOPRIL 5 MG TAB PO SCH (09:25)
[2017-12-08] MEDS: INSULIN ASPART 100 UNITS/ML 3 ML PEN SC SCH ×3 (09:28→17:14)
[2017-12-08 11:22] VITALS: BP 139/81; PULSE 79; TEMP 36.7; O2SAT 96
[2017-12-08 14:39] VITALS: BP 126/79; PULSE 90; TEMP 36.9; O2SAT 94
--- NOTE | 2017-12-08 14:40 | Progress Note ---
Internal Med Progress Note Date of Service: Dec 08, 2017. Provider Documentation: SUBJECTIVE: The patient was seen and examined Admitted with weakness and Pleuritic type of Chest pain Pain is better No new symptoms Dizziness is better too .No more Diarrhea OBJECTIVE: Vital Signs-as noted below Exam: General-Very Obese No distress at rest Eyes-Normal ENT-normal Neck-supple Lungs-Decreased breath sound bilaterally Heart-Regular Abdomen-benign Extremities-Trace edema bilaterally Neuro-AAOx3 Lab data as noted below. ASSESSMENT & PLAN: This is a 32yoM with a PMH of DM II, tobacco use disorder, asthma and bipolar I disorder who presents with chest pain beginning this morning. Pleurisy Chest pain: -Likely a pleuritic component with h/o asthma, resolving pneumonitis -R/o ACS; risk factors include obesity, DM II, tobacco use -Serial Troponis are negative -EKG-normal sinus rhythm, no acute ischemic changes -CXR- No acute findings -Chest/thorax CTA from 11/30 without PE -Check echo-pending -Fasting lipid panel, a1c pending-6.3 and Cholesterol-unremarkable -Aspirin allergy: h/o respiratory distress with aspirin as a child. Hold off for now. -IV Toradol PRN for inflammatory pain -Will start Oral Ibuprofen -more ambulation and if reasonably well this Afternoon -will discharge --Ambulating without any difficulty -Wants to go home today H/o PNA/pneumonitis: resolving -No wheezing appreciated on exam. No SOB -No leukocytosis -Complete PO course of Zithromax -no new antibiotic for now -no signs of infection Bilateral calf pain: -With exertion -Dopplers negative for DVT -Encouraged increased water intake, ambulation -denies any more pain -Better with Ibuprofen DM II: -A1c pending -6.3 -Controlled -Hold oral agent -SSI while in-patient Tobacco use disorder: -Encouraged smoking cessation Bipolar I, depression: -Stable -Not on medication currently -Follow up out-patient at [facility] DVT Ppx: SCDs Code status: FULL PCP: Erich Dispo: Observation telemetry. Plan to return home once medically stable. Discharge today Vital Signs: Date Time Temp Pulse Resp B/P (MAP) Pulse Ox O2 Delivery O2 Flow Rate FiO2 12/08/17 12:11 Room Air 12/08/17 11:22 36.7 79 20 139/81 (100) 96 Room Air 3/8/18 08:00 Room Air 12/08/17 07:22 36.8 72 20 113/71 (85) 97 Room Air 12/08/17 04:36 36.5 73 20 102/65 (77) 99 Room Air 12/08/17 04:00 Room Air 12/08/17 00:00 Room Air 12/07/17 22:59 36.7 84 16 137/62 (87) 94 Room Air 12/07/17 20:00 Room Air 12/07/17 19:35 36.8 82 20 110/68 (82) 93 Room Air 12/07/17 16:00 Room Air 12/07/17 15:21 36.6 82 16 152/82 (105) 95 Room Air Lab Results: Results Past 24 Hours Test 12/07/17 16:25 12/07/17 20:29 12/08/17 07:38 12/08/17 11:10 Range/Units Bedside Glucose 121 85 112 141 70-99 mg/dl Microbiology Results 12/07/17 C.difficile Toxin B Gene (PCR) - Final, Complete No C. difficile toxin B gene detected
--- NOTE | 2017-12-08 14:43 | Discharge Instructions ---
Discharge Instructions Date of Service Dec 08, 2017. Admission Reason for Admission: Chest Pain Discharge Discharge Diagnosis / Problem: Pleurisy Discharge Goals Goal(s): Prevent Disease Progression Activity Recommendations Activity Limitations: resume your previous activity . Instructions / Follow-Up Instructions / Follow-Up Dr Jung on 12/12/17 at 12:45 PM Current Hospital Diet Patient's current hospital diet: AHA Diet (Heart Healthy), Diabetes Type 2 Diet Discharge Diet Recommended Diet: AHA Diet (Heart Healthy), Diabetes Type 2 Diet Pending Studies Studies pending at discharge: no Laboratory Results Hemoglobin A1c Test 12/06/17 03:19 Range/Units Estimated Average Glucose 134 mg/dl Hemoglobin A1c 6.3 H 4.5-5.6 % Lipid Panel Test 12/06/17 03:19 Range/Units Triglycerides Level 183 H 0-150 mg/dl Cholesterol Level 160 0-200 mg/dl HDL Cholesterol 30 mg/dl Cholesterol/HDL Ratio 5.3 LDL Cholesterol, Calculated 93 mg/dl Medical Emergencies . Who to Call and When: Medical Emergencies: If at any time you feel your situation is an emergency, please call 911 immediately. . Non-Emergent Contact Non-Emergency issues call your: Primary Care Provider . . "Provider Documentation" section prepared by Greg Bishop. .
--- NOTE | 2017-12-09 08:08 | Discharge Summary ---
Discharge Summary Date of Service Dec 09, 2017. Discharge Summary Admission Date: Dec 05, 2017 at 17:30 Discharge Date: Dec 08, 2017 Discharge Disposition: Home Principal Diagnosis: Pleurisy Secondary Diagnoses/Problems: Please see H&P and Hospital progress note Medication Reconciliation Continued Medications: Albuterol Hfa (Ventolin Hfa) 200 Puffs/48965 Mcg Aers 2 PUFFS INH DIRECTED PRN for Shortness of Breath Ibuprofen (Ibuprofen) 200 Mg Tab 600 MG PO Q4H PRN for Pain Lisinopril (Lisinopril) 5 Mg Tab 1 TAB PO DAILY Metformin Hcl (Glucophage) 500 Mg Tab 1000 MG PO BID, TAB Admission Information HPI (per Admitting provider): This is a 32yoM with a PMH of DM II, tobacco use disorder, asthma and bipolar I disorder who presents with chest pain beginning this morning. Chest pain began at 9am and is described as 4/10 central, substernal "pressure" that is non- radiating. Worse with deep inspiration but no change noted with exertion. No associated diaphoresis, SOB, nausea or vomiting. Does endorse some lightheadedness and chills as well as bilateral calf cramping when he stands. Patient was in the ER last week on 11/30 for SOB, when he was diagnosed with PNA and sent home on Zithromax. CTA chest/thorax performed at that time did not show a PE, but study was limited 2/2 patient motion artifact. SOB has improved significantly with abx treatment and use of albuterol PRN. Patient is to complete course of antibiotic tonight. Denies personal history of heart disease , but father of ID at age 53. Past Medical/Surgical History Medical Problems: (1) ADD (attention deficit disorder) Status: Chronic (2) Asthma, exercise induced Status: Chronic (3) Bipolar I disorder Status: Chronic (4) Depression Status: Chronic (5) Diabetes mellitus, type II Status: Chronic (6) H/O fracture of wrist Status: Resolved (7) Morbid obesity Status: Chronic (8) Tobacco use disorder Status: Chronic Surgical Problems: (1) S/P appendectomy Status: Chronic Social History Problems: (1) Wrist pain, right Status: Resolved Family History Diabetes mellitus Heart disease Social History Smoking Status: Current Every Day Smoker Drug Use: none Marital Status: in relationship Housing status: lives with family Occupational Status: employed Allergies Coded Allergies: Aspirin (Verified Allergy, Mild, 12/05/17) Cephalosporins (Verified Allergy, Unknown, UNKNOWN, 12/05/17) Penicillins (Verified Allergy, Unknown, UNSURE, 12/05/17) Sulfa Drugs (Verified Allergy, Unknown, ., 12/05/17) Sulfamethoxazole w/Trimethoprim (Verified Allergy, Unknown, ., 12/05/17) Home Medications Scheduled Lisinopril (Lisinopril), 1 TAB PO DAILY Metformin Hcl (Glucophage), 1,000 MG PO BID Scheduled PRN Albuterol Hfa (Ventolin Hfa), 2 PUFFS INH DIRECTED PRN for Shortness of Breath Ibuprofen (Ibuprofen), 200 MG PO Q4H PRN for Pain Review of Systems Ten systems reviewed and negative except as noted in the HPI. Physical Exam H&P v2 Physical Exam Vital Signs Date Time Temp Pulse Resp B/P (MAP) Pulse Ox O2 Delivery O2 Flow Rate FiO2 12/05/17 18:05 36.3 82 20 124/77 96 Room Air 12/05/17 17:32 81 12/05/17 16:34 89 20 129/81 96 Room Air 12/05/17 15:10 72 20 142/68 94 Room Air 12/05/17 14:13 86 12/05/17 13:24 82 20 140/76 94 Room Air 12/05/17 12:53 95 Room Air 12/05/17 12:31 95 Room Air 12/05/17 12:29 95 Room Air 12/05/17 12:29 36.7 88 20 159/84 95 Room Air General Appearance: WD/WN, no apparent distress, + obese Head: normocephalic, atraumatic Eyes: normal inspection, PERRL, sclerae normal ENT: normal ENT inspection, hearing grossly normal, pharynx normal (moist mucous membranes ) Neck: supple, thyroid normal, no JVD, trachea midline Respiratory/Chest: chest non-tender, lungs clear, normal breath sounds, no respiratory distress, no accessory muscle use, + decreased breath sounds (2/2 habitus ) Cardiovascular: regular rate, rhythm, no murmur, normal peripheral pulses Abdomen/GI: non tender, soft, no organomegaly Back: normal inspection Extremities/Musculoskelatal: normal inspection, no calf tenderness, no pedal edema Neurologic/Psych: inspector subassemblies II-XII nml as tested, no motor/sensory deficits, alert, normal mood/affect, oriented x 3 Skin: normal color, warm/dry Diagnostics H&P v2 Diagnostics Laboratory Results Results Past 24 Hours Test 12/05/17 13:05 12/05/17 14:15 12/05/17 16:18 Range/Units White Blood Count 7.19 4.8-10.8 K/uL Red Blood Count 5.17 4.7-6.1 M/uL Hemoglobin 14.6 14.0-18.0 g/dL Hematocrit 43.6 42-52 % Mean Corpuscular Volume 84.3 80-100 fL Mean Corpuscular Hemoglobin 28.2 25-34 pg Mean Corpuscular Hemoglobin Concent 33.5 32-36 g/dl Platelet Count 255 130-400 K/uL Mean Platelet Volume 9.5 7.4-10.4 fL Neutrophils (%) (Auto) 61.8 % Lymphocytes (%) (Auto) 30.0 % Monocytes (%) (Auto) 6.1 % Eosinophils (%) (Auto) 1.4 % Basophils (%) (Auto) 0.4 % Neutrophils # (Auto) 4.44 1.4-6.5 K/uL Lymphocytes # (Auto) 2.16 1.2-3.4 K/uL Monocytes # (Auto) 0.44 0.11-0.59 K/uL Eosinophils # (Auto) 0.10 0-0.5 K/uL Basophils # (Auto) 0.03 0-0.2 K/uL RDW Standard Deviation 43.3 36.4-46.3 fL RDW Coefficient of Variation 14.0 11.5-14.5 % Immature Granulocyte % (Auto) 0.3 % Immature Granulocyte # (Auto) 0.02 0.00-0.02 K/uL Prothrombin Time 9.9 9.0-12.0 SECONDS Prothromb Time International Ratio 0.9 0.9-1.1 Activated Partial Thromboplast Time 24.5 21.0-31.0 SECONDS Partial Thromboplastin Ratio 0.9 Sodium Level 138 136-145 mmol/L Potassium Level 4.0 3.5-5.1 mmol/L Chloride Level 104 98-107 mmol/L Carbon Dioxide Level 27 21-32 mmol/L Anion Gap 7.0 3-11 mmol/L Blood Urea Nitrogen 11 7-18 mg/dl Creatinine 0.70 0.60-1.40 mg/dl Est Creatinine Clear Calc Drug Dose 286.7 ml/min Estimated GFR () 142.7 Estimated GFR (Non- 123.1 BUN/Creatinine Ratio 15.1 10-20 Random Glucose 101 70-99 mg/dl Calcium Level 9.0 8.5-10.1 mg/dl Magnesium Level 2.4 1.8-2.4 mg/dl Total Bilirubin 0.4 0.2-1 mg/dl Aspartate Amino Transf (AST/SGOT) 14 15-37 U/L Alanine Aminotransferase (ALT/SGPT) 39 12-78 U/L Alkaline Phosphatase 86 45-117 U/L Total Creatine Kinase 119 39-308 U/L Creatine Kinase MB < 0.5 0.5-3.6 ng/ml Creatine Kinase MB Ratio 0-3.0 Troponin I < 0.015 < 0.015 0-0.045 ng/ml Total Protein 7.5 6.4-8.2 gm/dl Albumin 3.2 3.4-5.0 gm/dl Globulin 4.3 2.5-4.0 gm/dl Albumin/Globulin Ratio 0.7 0.9-2 Thyroid Stimulating Hormone (TSH) 1.410 0.300-4.500 uIu/ml Urine Color YELLOW Urine Appearance CLEAR CLEAR Urine pH 6.5 4.5-7.5 Urine Specific [place] 1.020 1.000-1.030 Urine Protein NEG NEG Urine Glucose (UA) NEG NEG Urine Ketones NEG NEG Urine Occult Blood NEG NEG Urine Nitrite NEG NEG Urine Bilirubin NEG NEG Urine Urobilinogen NEG NEG Urine Leukocyte Esterase NEG NEG Diagnostic Radiology CXR: IMPRESSION: Slightly limited study due to the patient's large body habitus. No acute findings. Bilateral lower extremity venous dopplers: IMPRESSION: No sonographic evidence of deep venous thrombosis within the right or left lower extremity. EKG Normal sinus rhythm Normal ECG Impression H&P v2 Impression Assessment and Plan This is a 32yoM with a PMH of DM II, tobacco use disorder, asthma and bipolar I disorder who presents with chest pain beginning this morning. Chest pain: -Likely a pleuritic component with h/o asthma, resolving pneumonitis -R/o ACS; risk factors include obesity, DM II, tobacco use -Initial troponin negative -EKG-normal sinus rhythm, no acute ischemic changes -CXR- No acute findings -Trend serial cardiac enzymes -Chest/thorax CTA from 11/30 without PE -Check echo -Repeat EKG in am -Fasting lipid panel, a1c pending -Aspirin allergy: h/o respiratory distress with aspirin as a child. Hold off for now. -Consider stress test if concern for cardiac etiology in AM -IV Toradol PRN for inflammatory pain H/o PNA/pneumonitis: resolving -No wheezing appreciated on exam. No SOB -No leukocytosis -Complete PO course of Zithromax Bilateral calf pain: -With exertion -Dopplers negative for DVT -Encouraged increased water intake, ambulation DM II: -A1c pending -Hold oral agent -SSI while in-patient -Cont lisinopril for renal protection -BSG AC HS Tobacco use disorder: -Encouraged smoking cessation Bipolar I, depression: -Stable -Not on medication currently -Follow up out-patient at [facility] DVT Ppx: SCDs Code status: FULL PCP: Erich Dispo: Observation telemetry. Plan to return home once medically stable. Patient seen in collaboration with Dr. Suarez. Please see addendum. Attending Addendum. Pt was seen and examined. Agreed with Heather HERNANDEZ physical and assessment and Plan. 32 yoM with a PMH of DM II, tobacco use disorder, asthma and bipolar I disorder presents with chest pain starting this morning. Described chest pain pressure like, non- radiating, grade 4/10 as 4/10 central. Pt said that pain is worse with deep inspiration. Denies any SOB, Palpitation dizziness and fever. Exam General- No acute distress, obese Head- atraumatic Eyes- PERRL, EOMI ENT- oropharynx clear Neck- supple, no JVD Lungs- clear to auscultation Heart- regular rhythm Abdomen- normal bowel sounds, soft Extremities- no calf tenderness Neuro- alert, oriented x 3; PERRL Skin- warm & dry A/P Chest pain Pleuritic in feature CXR showed no acute findings. EKG showed no ischemic changes Tropx2 negative Continue monitor trop Check Echo in am Continue monitor in tele Continue Toradol for pain Please refer to Heather HERNANDEZ documentation for other problems. Jayla Suarez Resuscitation Status VTE Prophylaxis Will order VTE Prophylaxis: Yes Physical Exam (per Admitting): General Appearance: WD/WN, no apparent distress, + obese Head: normocephalic, atraumatic Eyes: normal inspection, PERRL, sclerae normal ENT: normal ENT inspection, hearing grossly normal, pharynx normal (moist mucous membranes ) Neck: supple, thyroid normal, no JVD, trachea midline Respiratory/Chest: chest non-tender, lungs clear, normal breath sounds, no respiratory distress, no accessory muscle use, + decreased breath sounds (2/2 habitus ) Cardiovascular: regular rate, rhythm, no murmur, normal peripheral pulses Abdomen/GI: non tender, soft, no organomegaly Back: normal inspection Extremities/Musculoskelatal: normal inspection, no calf tenderness, no pedal edema Neurologic/Psych: inspector subassemblies II-XII nml as tested, no motor/sensory deficits, alert , normal mood/affect, oriented x 3 Skin: normal color, warm/dry Hospital Course This is a 32yoM with a PMH of DM II, tobacco use disorder, asthma and bipolar I disorder who presents with chest pain beginning this morning. Pleurisy Chest pain: -Likely a pleuritic component with h/o asthma, resolving pneumonitis -R/o ACS; risk factors include obesity, DM II, tobacco use -Serial Troponis are negative -EKG-normal sinus rhythm, no acute ischemic changes -CXR- No acute findings -Chest/thorax CTA from 11/30 without PE -Check echo-pending -Fasting lipid panel, a1c pending-6.3 and Cholesterol-unremarkable -Aspirin allergy: h/o respiratory distress with aspirin as a child. Hold off for now. -IV Toradol PRN for inflammatory pain -Will start Oral Ibuprofen -more ambulation and if reasonably well this Afternoon -will discharge --Ambulating without any difficulty -Wants to go home today H/o PNA/pneumonitis: resolving -No wheezing appreciated on exam. No SOB -No leukocytosis -Complete PO course of Zithromax -no new antibiotic for now -no signs of infection Bilateral calf pain: -With exertion -Dopplers negative for DVT -Encouraged increased water intake, ambulation -denies any more pain -Better with Ibuprofen DM II: -A1c pending -6.3 -Controlled -Hold oral agent -SSI while in-patient Tobacco use disorder: -Encouraged smoking cessation Bipolar I, depression: -Stable -Not on medication currently -Follow up out-patient at [facility] DVT Ppx: SCDs Code status: FULL PCP: Erich Dispo: Observation telemetry. Plan to return home once medically stable. Discharge today Total time spent on discharge = 35 minutes This includes examination of the patient, discharge planning, medication reconciliation, and communication with other providers. Discharge Instructions Date of Service Dec 08, 2017. Admission Reason for Admission: Chest Pain Discharge Discharge Diagnosis / Problem: Pleurisy Discharge Goals Goal(s): Prevent Disease Progression Activity Recommendations Activity Limitations: resume your previous activity . Instructions / Follow-Up Instructions / Follow-Up Dr Jung on 12/12/17 at 12:45 PM Current Hospital Diet Patient's current hospital diet: AHA Diet (Heart Healthy), Diabetes Type 2 Diet Discharge Diet Recommended Diet: AHA Diet (Heart Healthy), Diabetes Type 2 Diet Pending Studies Studies pending at discharge: no Laboratory Results Hemoglobin A1c Test 12/06/17 03:19 Range/Units Estimated Average Glucose 134 mg/dl Hemoglobin A1c 6.3 H 4.5-5.6 % Lipid Panel Test 12/06/17 03:19 Range/Units Triglycerides Level 183 H 0-150 mg/dl Cholesterol Level 160 0-200 mg/dl HDL Cholesterol 30 mg/dl Cholesterol/HDL Ratio 5.3 LDL Cholesterol, Calculated 93 mg/dl Medical Emergencies . Who to Call and When: Medical Emergencies: If at any time you feel your situation is an emergency, please call 911 immediately. . Non-Emergent Contact Non-Emergency issues call your: Primary Care Provider . . "Provider Documentation" section prepared by Greg Bishop. . <Electronically signed by Greg Bishop M.D.> Signed: 12/08/17 0789 Additional Copies To Carine Jung M.D. (MEDICAL)
== END 2017-12-08 17:45 | disposition home or self-care (01) ==
LOC: EDBD 12:18 → C.EDA 12:21 → C.MED 17:30 → ENRESERV 17:47
PROVIDERS: ADMIT Internal Medicine; ATTEND Internal Medicine
DX: R09.1 Pleurisy (principal); E11.9 Type 2 diabetes mellitus without complications; F17.200 Nicotine dependence, unspecified, uncomplicated; J45.909 Unspecified asthma, uncomplicated; F90.9 Attention-deficit hyperactivity disorder, unspecified type; Z68.43 Body mass index [BMI] 50.0-59.9, adult; E66.01 Morbid (severe) obesity due to excess calories; Z90.89 Acquired absence of other organs; Z88.0 Allergy status to penicillin; Z88.2 Allergy status to sulfonamides; Z82.49 Family history of ischemic heart disease and other diseases of the circulatory system; Z83.3 Family history of diabetes mellitus

== ENCOUNTER 2018-01-31 23:43 | Emergency (ER) | payer OTHER ==
[~2018-01-31] VITALS: Ht 193 cm; Wt 194.0 kg
[~2018-01-31 23:43] MED LIST changes: -AZIT250T PO; +IBUP-1105 PO; +LSN5 PO; -METF-384 PO; +METF500T PO
[2018-01-31 23:50] VITALS: TEMP 36.8; Ht 193 cm; Wt 194.0 kg
--- NOTE | 2018-02-01 00:04 | EMERGENCY ROOM VISIT NOTE ---
History Report prepared by Rebecca: Chadwick Vargas Under the Supervision of: Dr. Venecia Claudio D.O. First contact with patient: 23:55 Chief Complaint: KNEEPAIN Stated Complaint: PAIN IN LFT ARM AND BRUISE ON LFT SIDE History of Present Illness The patient is a 32 year old male who presents to the Emergency Room with complaints of constant left knee pain beginning 1-1.5 weeks ago. The patient states his knee has been locking up, and it feels like it is going to give out when he walks. He reports he sprained his knee in high school playing football. The patient notes walking up stairs worsens his symptoms more than walking on flat ground. He states he was moving yesterday and walked into the hinge on a screen door by accident. The patient reports it looked like he scratched his abdomen. He notes he got out of the shower before arrival and noticed it had worsened. The patient states he has a history of diabetes and takes metformin. He denies taking anything for pain and any other discomfort. Source of History: patient Onset: 1-1.5 weeks ago Position: knee (left) Timing: constant Modifying Factors (Worsening): movement (walking, especially upstairs.) Note: Associated symptoms: scratch to his abdomen Denies: any other discomfort Review of Systems See HPI for pertinent positives & negatives. A total of 10 systems reviewed and were otherwise negative. Past Medical & Surgical Medical Problems: (1) ADD (attention deficit disorder) (2) Asthma, exercise induced (3) Bipolar I disorder (4) Depression (5) Diabetes mellitus, type II (6) H/O fracture of wrist (7) Morbid obesity (8) Tobacco use disorder Surgical Problems: (1) S/P appendectomy Social History Problems: (1) Wrist pain, right Family History Diabetes mellitus Heart disease Social History Smoking Status: Never Smoker Drug Use: none Marital Status: in relationship Housing Status: lives with family Occupation Status: employed Current/Historical Medications Scheduled Metformin Hcl (Glucophage), 1,000 MG PO BID Scheduled PRN Albuterol Hfa (Ventolin Hfa), 2 PUFFS INH DIRECTED PRN for Shortness of Breath Allergies Coded Allergies: Aspirin (Verified Allergy, Mild, 02/01/18) Cephalosporins (Verified Allergy, Unknown, UNKNOWN, 02/01/18) Penicillins (Verified Allergy, Unknown, UNSURE, 02/01/18) Sulfa Drugs (Verified Allergy, Unknown, ., 02/01/18) Sulfamethoxazole w/Trimethoprim (Verified Allergy, Unknown, ., 02/01/18) Physical Exam Vital Signs Date Time Temp Pulse Resp B/P (MAP) Pulse Ox O2 Delivery O2 Flow Rate FiO2 02/01/18 01:11 92 16 155/99 95 01/31/18 23:50 36.8 101 22 146/83 93 Room Air Physical Exam HEENT: Head - normocephalic and atraumatic Pupils are equal, round, and reactive to light. Extraocular eye muscles are intact, and sclera are anicteric. Nose - moist nasal mucosa without discharge. Mouth - moist buccal mucosa. Oropharynx is nonerythematous and there is no tonsillar exudate or edema noted. Neck: Supple; no JVD, nuchal rigidity, cervical lymphadenopathy. Heart: Regular rate and rhythm. There is a normal S1 and S2 with no murmurs, clicks, or gallops appreciated. Lungs: Clear to auscultation bilaterally with no wheezes, rales, or rhonchi. Abdomen: Soft, completely nontender, nondistended, with good bowel sounds. There are no palpable pulsatile masses or hepatosplenomegaly. There is no guarding, rigidity, or rebound noted. 1cm LLQ abrasion with surrounding contusion. Extremities: No evidence of cyanosis, clubbing, or edema. There are easily palpable peripheral pulses. Pain over the lateral knee with varus positioning specifically and pain in the popliteal fossa. Negative anterior and posterior drawer test. No obvious ligamentous instability. Skin: warm and dry with good turgor and no rashes. Medical Decision & Procedures ER Provider Diagnostic Interpretation: X-ray results as stated below per interpretation by me: Left Knee X-ray: No joint effusion. No fracture. Medications Administered Medications (Trade) Dose Ordered Sig/Victorino Route Start Time Stop Time Status Last Admin Dose Admin Ibuprofen (Motrin Tab) 600 mg NOW STAT PO 02/01/18 00:06 02/01/18 00:07 DC 02/01/18 00:20 600 MG Procedure 0006: Ordered Ibuprofen 600mg PO ED Course 2358: Past medical records reviewed. The patient was evaluated in room B10. A complete history and physical exam was performed. 0006: Ordered Ibuprofen 600mg PO. The patient went for plain x-ray of the left knee as described above. 0101: Upon reevaluation, the patient is feeling better. I discussed findings and results with him. He verbalized agreement of the treatment plan. The patient was discharged home. Medical Decision The patient is a 32 year old male who presents to the ED with left knee pain. Differential diagnosis includes meniscus injury, knee sprain, ligamentous injury of the knee. X-ray was unremarkable. The patient has an established orthopedic surgeon at [facility]. I have asked him to follow-up with him if the pain persists for probable MRI testing. Patient was encouraged to rest with the left knee elevated and iced. He can use NSAIDs for pain. Medication Reconcilliation Current Medication List: was personally reviewed by me Blood Pressure Screening Patient's blood pressure: Elevated blood pressure Blood pressure disposition: Elevated BP felt to be situational Impression Primary Impression: Left knee pain Scribe Attestation The scribe's documentation has been prepared under my direction and personally reviewed by me in its entirety. I confirm that the note above accurately reflects all work, treatment, procedures, and medical decision making performed by me. Departure Information Dispostion Home / Self-Care Referrals Carine Jung M.D. (MEDICAL) (PCP) Fidel Blount D.O. Forms HOME CARE DOCUMENTATION FORM, IMPORTANT VISIT INFORMATION Patient Instructions [facility] Additional Instructions Rest your left knee Ice it Motrin for pain Follow up with ORtho- you may need an MRI Problem Qualifiers Primary Impression: Left knee pain Chronicity: acute Qualified Codes: M25.562 - Pain in left knee
[2018-02-01] MEDS ORDERED: IBUPROFEN 600 MG TAB PO STA (00:06)
[2018-02-01 01:11] VITALS: BP 155/99; PULSE 92; O2SAT 95
--- NOTE | 2018-02-01 06:59 | DIAGNOSTIC IMAGING REPORT ---
L KNEE 1 OR 2 VIEWS ROUTINE CLINICAL HISTORY: 32 years-old Male presenting with left knee - lateral pain. TECHNIQUE: Frontal and lateral views of the left knee were obtained. COMPARISON: None. FINDINGS: Knee joint congruent. Minimal osteophytosis in the lateral compartment. Joint spaces preserved. No acute fracture or malalignment. No advanced degenerative change. Knee joint effusion suspected. IMPRESSION: 1. No acute osseous injury. 2. Minimal degenerative changes in the lateral compartment with preservation of joint space. 3. Joint effusion. The report will be called/faxed according to standard departmental protocol. Electronically signed by: Jim Rodriguez M.D. 02/01/2018 6:58 AM Dictated Date/Time: 02/01/2018 6:57 AM
== END 2018-02-01 01:12 | disposition home or self-care (01) ==
LOC: C.EDB 23:44
DX: M25.562 Pain in left knee (principal); S30.1XXA Contusion of abdominal wall, initial encounter; S30.811A Abrasion of abdominal wall, initial encounter; X58.XXXA Exposure to other specified factors, initial encounter; E11.9 Type 2 diabetes mellitus without complications; Z79.4 Long term (current) use of insulin; Z88.0 Allergy status to penicillin; Z88.1 Allergy status to other antibiotic agents; Z88.2 Allergy status to sulfonamides; Z88.6 Allergy status to analgesic agent

== ENCOUNTER 2018-02-11 13:57 | Emergency (ER) | payer OTHER ==
[~2018-02-11] VITALS: Ht 193 cm; Wt 194.0 kg
[~2018-02-11 13:57] MED LIST changes: -IBUP-1105 PO; -LSN5 PO
[2018-02-11 14:00] VITALS: TEMP 36.5; Ht 193 cm; Wt 194.0 kg
[2018-02-11 14:29] VITALS: BP 159/85; PULSE 96; O2SAT 95
--- NOTE | 2018-02-11 16:36 | EMERGENCY ROOM VISIT NOTE ---
ED Visit Note First contact with patient: 14:05 Chief Complaint: I have a burn on my right arm. History of Present Illness: Mr. Staley is a 32-year-old white male who ambulates into the ED accompanied by female friend complaining of a thermal burn on the right forearm. Patient reports 2 days ago he noted hissing under the rudolph of his car. He reports he opened the rudolph of the car and felt the radiator cap. He reports immediately the radiator flew off and his arm was spewed with hot radiator fluid. He reports he immediately noted pain, swelling and redness starting over the posterior aspect of the first proximal metacarpal that extends around to the anterior upper forearm. He reports initially there was no blister formation but yesterday he started developing a few small blisters. Since that time he has noted increasing redness and feels that he has had more blister formation; this prompted his ED visit. Associated with his injury he reports she has a burning pain in the forearm. He rates his discomfort 5/10. The pain is nonradiating. The pain worsens with palpation. He has not identified any alleviating factors related to the pain. He has not taken any medications for pain prior to arrival at the hospital. He does report he has been putting aloe vera over his burn with minimal relief of his discomfort. He denies any associated symptoms including fevers, chills, sweats, other skin eruptions, right elbow or wrist pain, hand weakness/numbness/tingling. Review of Systems: As noted above in history of present illness. 5 body systems were reviewed and found to be negative as noted above. Past Medical History: Attention deficit disorder, asthma, bipolar disorder, depressions, diabetes, wrist fracture, obesity and status post appendectomy. Current Medications: Metformin, lisinopril, albuterol. Allergies to Medications: Aspirin, cephalosporins, penicillin and sulfa. Social History: Patient is currently employed; he feels safe in his home environment; he admits to previous tobacco use. Tetanus Immunization Status: Reported up-to-date. Physical Examination: Vital Signs: Date Time Temp Pulse Resp B/P (MAP) Pulse Ox O2 Delivery O2 Flow Rate FiO2 02/11/18 14:29 96 20 159/85 95 02/11/18 14:03 95 Room Air 02/11/18 14:00 36.5 99 18 129/70 95 Room Air GENERAL: 32-year-old male in mild distress due to pain, nontoxic-appearing, afebrile and hemodynamically stable. NEUROLOGICAL: Awake, alert and oriented to person, place and time. Answering questions appropriately and following commands. Normal gait. Good hand eye coordination. No focal motor or sensory deficits. SKIN: Warm, dry and pink. Right Lower Arm: Patient has a combination of superficial and partial-thickness friend with small blistering over the anterior aspect of the forearm extending to the posterior aspect of the first metacarpal. There is mild erythema but no lymphangitis or signs of infection. RIGHT UPPER EXTREMITY: Soft tissue injury as noted above under SKIN. No gross bony deformity. Full range of motion in flexion and extension of the elbow, pronation and supination of the finger, flexion, extension and radial and ulnar deviation of the wrist and all movements of the first MCP joint. Strength is 5/ 5 in these joints. Distal pulses and capillary refill are intact. He is able to distinguish light sensations to all dermatomes of the hand and forearm. ED Course: Patient is assessed as noted above. Patient's medication list was reviewed. Patient was offered pain medication and refused. Patient's burn was cleansed with antibacterial soap and water and dressed with an antibiotic ointment and sterile dry. Patient was educated about today's findings and instructed on his treatment plan ; he verbalized understanding and agreement with this plan. Clinical Impression: Superficial and partial-thickness thermal burn to the right forearm. Approximately less than 1% body surface area was involved. Disposition: Patient discharged home in stable condition accompanied by female friend; prior to departure he was reassessed and subjectively reported he was feeling better and rated his discomfort 3/10. Plan: Comfort measures, wound care and signs of infection were discussed with the patient. Patient was encouraged to follow-up with his PCP or return to the ED for any signs of infection or any new/concerning symptoms.
== END 2018-02-11 14:30 | disposition home or self-care (01) ==
LOC: C.EDB 14:00 → C.EDD 14:30
DX: T22.211A Burn of second degree of right forearm, initial encounter (principal); T31.0 Burns involving less than 10% of body surface; X12.XXXA Contact with other hot fluids, initial encounter; F90.9 Attention-deficit hyperactivity disorder, unspecified type; J45.909 Unspecified asthma, uncomplicated; F31.9 Bipolar disorder, unspecified; E11.9 Type 2 diabetes mellitus without complications; E66.9 Obesity, unspecified; Z90.49 Acquired absence of other specified parts of digestive tract; Z79.899 Other long term (current) drug therapy; Z88.6 Allergy status to analgesic agent; Z88.1 Allergy status to other antibiotic agents; Z88.0 Allergy status to penicillin; Z88.2 Allergy status to sulfonamides; Z87.891 Personal history of nicotine dependence

== ENCOUNTER 2019-05-31 20:33 | Inpatient (IN) ==
[2019-05-31] MEDS ORDERED: ONDANSETRON INJ 2 MG/ML 2 ML VIAL IV STA (20:40)
[2019-05-31] MEDS ORDERED: SODIUM CHLORIDE 0.9% 1000ML 1,000 ML IV SCH (20:45)
[2019-05-31] MEDS ORDERED: NovoLIN-R INSULIN PER UNIT CHARGE IV STA (20:46)
[2019-05-31 21:06] LABS: Appearance Urine Clear (Clear); Bilirubin Urine Negative (Negative); Blood Urine Negative (Negative); Color Urine Yellow; Glucose Urine UA 3+ (Negative); Ketones Urine Negative (Negative); Leukocyte Esterase Urine Negative (Negative); Nitrite Urine Negative (Negative); Protein Urine Negative (Negative); Specific Gravity Urine 1.033 (1.000-1.030); Urobilinogen Urine Negative (Negative); pH Urine 5.5 (4.5-7.5)
--- NOTE | 2019-05-31 21:15 | XRay Report ---
XR chest 1V portable CLINICAL HISTORY: 34 years-old Male presenting with weakness. TECHNIQUE: PA and lateral views of the chest were obtained. COMPARISON: 01/31/2019. FINDINGS: Cardiac silhouette mildly enlarged. No focal opacity. No large effusion or pneumothorax. Osseous stru ctures normal. Upper abdomen normal. IMPRESSION: 1. Mild cardiomegaly. No other convincing evidence of acute cardiopulmonary disease. Electronically signed by: Jim Rodriguez M.D. 05/31/2019 9:13 PM
[2019-05-31 21:17] LABS: Base Excess VBG -1.6 mEq/L; Oxygen Saturation VBG 92.9 %; pH VBG 7.41 (7.36-7.41)
[2019-05-31 21:27] LABS: Basophils # (auto) 0.01 K/uL (0-0.2); Basophils % (auto) 0.1 %; Eosinophils # (auto) 0.07 K/uL (0-0.5); Eosinophils % (auto) 0.9 %; Hematocrit (blood only) 44.8 % (42-52); Hemoglobin 15.7 g/dL (14.0-18.0); Immature Granulocytes # (auto) 0.02 K/uL (0.00-0.02); Immature Granulocytes % (auto) 0.3 %; Lymphocytes # (auto) 2.34 K/uL (1.2-3.4); Lymphocytes % (auto) 30.3 %; Mean Corpuscular Hemoglobin 28.8 pg (25-34); Mean Corpuscular Volume 82.1 fL (80-100); Monocytes # (auto) 0.83 K/uL (0.11-0.59); Monocytes % (auto) 10.7 %; Neutrophils # (auto) 4.46 K/uL (1.4-6.5); Neutrophils % (auto) 57.7 %; Platelet Count 232 K/uL (130-400); Red Blood Count 5.46 M/uL (4.7-6.1); White Blood Count 7.73 K/uL (4.8-10.8)
[2019-05-31 21:28] LABS: Alanine Aminotransferase 48 U/L (12-78); Albumin Globulin Ratio 0.8 (0.9-2); Albumin Level 3.2 gm/dl (3.4-5.0); Alkaline Phosphatase 85 U/L (45-117); Aspartate Aminotransferase 15 U/L (15-37); BUN Creatinine Ratio 10.1 (10-20); Bilirubin,Total 0.3 mg/dl (0.2-1); Blood Urea Nitrogen 15 mg/dl (7-18); Calcium 8.2 mg/dl (8.5-10.1); Carbon Dioxide 23 mmol/L (21-32); Chloride 90 mmol/L (98-107); Creatinine Clr Calc Pharmacy 127.5 ml/min; Est GFR (African American) 71.9; Globulin 3.9 gm/dl (2.5-4.0); Glucose 860 mg/dl (70-99); Magnesium 2.2 mg/dl (1.8-2.4); Potassium 4.1 mmol/L (3.5-5.1); Sodium 125 mmol/L (136-145); Total Protein 7.1 gm/dl (6.4-8.2); Troponin I < 0.015 ng/ml (0-0.045)
[2019-05-31] MEDS ORDERED: MODERATE STRESS LEVEL ONE (21:43)
[2019-05-31] MEDS ORDERED: INSULIN REGULAR 250 UNITS in SODIUM CHLORIDE 0.9% 247.5 ML IV SCH (21:45)
[2019-05-31 21:46] LABS: Beta-Hydroxybutyrate 2.12 mg/dl (0.2-2.81)
[2019-05-31] MEDS ORDERED: FAMOTIDINE 20MG/5ML IV PUSH IV STA ×2 (21:55→23:16)
[2019-05-31] MEDS ORDERED: SODIUM CHLORIDE 0.9% 1000ML 1,000 ML IV ONE (21:59)
[2019-05-31] MEDS ORDERED: GLUCOSE 10 TABS/TUBE PO PRN (22:15)
[2019-05-31] MEDS ORDERED: CARBOHYDRATES FOR HYPOGLYCEMIA PO PRN (22:15)
[2019-05-31] MEDS ORDERED: INSULIN HUMAN REGULAR IV BOLUS 4.5 UNITS in SYRINGE 0 ML IV ONE (22:15)
[2019-05-31] MEDS ORDERED: DEXTROSE 50% 50 ML SYRINGE IV PRN (22:15)
[2019-05-31] MEDS ORDERED: GLUCOSE 40% GEL 15 GM TUBE PO PRN (22:15)
[2019-05-31] MEDS ORDERED: GLUCAGON FOR INJ 1 MG VIAL IM PRN (22:15)
--- NOTE | 2019-05-31 22:34 | Emergency Department Note ---
Entered by Paola Antony acting as a scribe for Alvaro Taylor MD History of Present Illness General Chief complaint: Hyperglycemia Stated complaint: HYPERGLYCEMIA Time Seen by Provider: 05/31/19 20:38 Source: patient History of Present Illness Onset (ago): hour(s) (1) Location: chest Pain Consistency: + constant Maximum Pain Intensity: 3 Current Pain Intensity: 5 Quality: + other (tightness) Associated symptoms: + fever/chills (positive chills, negative fever) and + other (dizziness, frequent urination, no pain with urination); no nausea/vomiting The patient is a 34 year old male who presents to the Emergency Room with complaints of constant tight chest pain beginning one hour ago. He reports that the pain is currently a 5/10. The patient reports that he is also feeling dizzy. He states that he had shortness of breath, but is currently not experiencing any. He states that he had episodes of chills that start suddenly, but denies any sweating or nausea. He states that he felt warm last night but does not believe that he had a fever. He also reports frequent urination, but no pain with urination. The patient states that he drank both a sugar free energy drink and a half gallon of iced tea, but still has a dry mouth. He denies any nausea, vomiting, and rash of any kind. The patient states that he has a history of asthma. He denies any personal history of kidney or heart problems, but states that he has a family history of heart problems. EMS reports that the patient has Type 2 diabetes, and is insulin dependent. EMS states that he has not had any insulin for the past month due to not having insurance for the past month. EMS notes that the patient is still taking Metformin and that his blood sugar was especially high today. Home Medications Home Medications Medication Instructions Recorded Confirmed Type albuterol sulfate [Ventolin HFA] 2 puff INHALATION QID PRN 06/17/18 05/31/19 History ibuprofen [IBU] 600 mg PO TID PRN 06/17/18 05/31/19 History insulin glargine [Basaglar KwikPen 20 unit SUBCUT DAILY 05/31/19 05/31/19 History U-100 Insulin] metformin 1,000 mg PO DAILY 05/31/19 05/31/19 History Allergies Allergy/AdvReac Type Severity Reaction Status Date / Time aspirin Allergy Unknown Unknown Verified 05/31/19 21:23 Bactrim Allergy Unknown . Verified 02/01/18 00:10 Cephalosporins Allergy Unknown Unknown Verified 05/31/19 21:23 Penicillins Allergy Unknown Unknown Verified 05/31/19 21:23 Sulfa (Sulfonamide Allergy Unknown Unknown Verified 05/31/19 21:23 Antibiotics) sulfamethoxazole Allergy Unknown Unknown Verified 05/31/19 21:23 trimethoprim Allergy Unknown Unknown Verified 05/31/19 21:23 Past Med/Surg History Medical History Skin ulcer (Acute) MRSA (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 (Acute) Discharge planning issues (Acute) DVT prophylaxis (Acute) Diabetes mellitus with hyperosmolarity without hyperglycemic hyperosmolar nonketotic coma (Acute) Depression (Chronic) Bipolar I disorder (Chronic) Diabetes mellitus, type II (Chronic) Tobacco use disorder (Chronic) ADD (attention deficit disorder) (Chronic) Asthma, exercise induced (Chronic) Morbid obesity (Chronic) Surgical History S/P appendectomy (Chronic) Family History Mother Hypertension Father Coronary heart disease Diabetes Brother Diabetes Social History Preferred Language: Qatari Communication Ability: Effective Visual Impairment: No Limitations Hearing Ability: Normal Mill Worker Required: No Beliefs That Will Affect Care: None Current Living Situation: Family Other Information That Helps Us Care for You: Yes (Any assistance with Insulin) Feels Safe at Home: Yes Safety Concerns: Feels Safe At This Time Smoking Status: Never smoker Do You Dip or Chew Tobacco: No ; Second Hand Exposure: No ; Tobacco Cessation Education Requested by Patient: No Hx Alcohol Use: No Hx Substance Use: No Review of Systems See HPI for pertinent positives & negatives. and A total of 10 systems reviewed and were otherwise negative Physical Exam Vital Signs Vital Signs - 24 hr 05/31/19 21:00 05/31/19 21:30 05/31/19 22:00 Pulse Rate 91 H 82 Pulse Rate from SpO2 Sensor 89 83 Respiratory Rate 16 24 20 Blood Pressure 157/92 H 143/81 H Blood Pressure Mean 113 101 Pulse Oximetry 95 95 05/31/19 22:34 05/31/19 23:00 Pulse Rate Pulse Rate from SpO2 Sensor 78 81 Respiratory Rate Blood Pressure Blood Pressure Mean Pulse Oximetry 95 95 GENERAL: Patient is in no acute distress. HEENT: No acute trauma, normocephalic atraumatic, mucous membranes dry, no nasal congestion, no scleral icterus. NECK: No stridor, no adenopathy, no meningismus, trachea is midline. LUNGS: Clear to auscultation bilaterally, no wheeze, no rhonchi, breath sounds equal. HEART: Without murmurs gallops or rubs, regular rate and rhythm. ABDOMEN: Mid abdominal wound that has not completely healed, no signs surrounding erythema. Soft, nontender, bowel sounds positive, no hernias, no peritonitis. EXTREMITIES: No cyanosis or edema, full range of motion of all the joints without pain or difficulty, no signs for acute trauma. NEUROLOGIC: Oriented x 3, no acute motor or sensory deficits, no focal weakness. SKIN: No rash, no jaundice, no diaphoresis. Course 2039: Past medical records reviewed. The patient was evaluated in room A02. A complete history and physical exam was performed. 2150: Upon reevaluation, I discussed findings and results with the patient. He verbalized agreement of the treatment plan. 2156: [facility] and he agrees to take the patient for further evaluation. Administered Medications Enoxaparin Sodium (Lovenox) 40 mg SQ QAM [facility] Stop: 07/01/19 08:59 Last Admin: 06/01/19 08:09 Dose: Not Given Documented by: [id number] Insulin Aspart (Novolog Flexpen) 0 units SC ACHS [facility] Stop: 07/01/19 03:59 Last Admin: 06/01/19 17:35 Dose: 4 units Documented by: [id number] Cosigned by: [id number] Admin: 06/01/19 11:53 Dose: 7 units Documented by: [id number] Cosigned by: [id number] Admin: 06/01/19 08:07 Dose: 6 units Documented by: [id number] Cosigned by: [id number] Admin: 06/01/19 04:10 Dose: 1 units Documented by: [id number] Cosigned by: [id number] Metformin HCl (Glucophage Er) 1,000 mg PO BIDM DIANE Stop: 07/01/19 16:59 Last Admin: 06/01/19 17:35 Dose: 1,000 mg Documented by: [id number] Discontinued Medications Acetaminophen (Tylenol) 650 mg PO NOW STA Stop: 05/31/19 23:43 Last Admin: 05/31/19 23:46 Dose: 650 mg Documented by: [id number] Famotidine (Pepcid 20mg Iv Push) 20 mg IV ONE STA Stop: 05/31/19 21:56 Last Admin: 05/31/19 22:45 Dose: 20 mg Documented by: [id number] Famotidine (Pepcid 20mg Iv Push) 20 mg IV ONE STA Stop: 05/31/19 23:17 Last Admin: 06/01/19 01:29 Dose: Not Given Documented by: [id number] Sodium Chloride (Nss 1000ml) 1,000 mls @ 999 mls/hr IV .Q1H1M DIANE Stop: 05/31/19 21:45 Last Infusion: 05/31/19 22:08 Dose: 0 mls/hr Documented by: [id number] Admin: 05/31/19 21:01 Dose: 999 mls/hr Documented by: [id number] Insulin Human Regular 250 (units/ Sodium Chloride) 250 mls @ 5.6 mls/hr IV .Q24H [facility]; Protocol Stop: 06/30/19 21:44 Last Titration: 06/01/19 03:15 Dose: 0 units/hr, 0 mls/hr Documented by: [id number] Cosigned by: [id number] Titration: 06/01/19 03:11 Dose: 6.7 units/hr, 6.7 mls/hr Documented by: [id number] Cosigned by: [id number] Titration: 06/01/19 02:04 Dose: 6.7 units/hr, 6.7 mls/hr Documented by: [id number] Cosigned by: [id number] Titration: 06/01/19 00:52 Dose: 6.7 units/hr, 6.7 mls/hr Documented by: [id number] Cosigned by: [id number] Titration: 06/01/19 00:30 Dose: 5.6 units/hr, 5.6 mls/hr Documented by: [id number] Cosigned by: [id number] Titration: 05/31/19 23:32 Dose: 5.6 units/hr, 5.6 mls/hr Documented by: [id number] Cosigned by: [id number] Admin: 05/31/19 22:34 Dose: 4.7 units/hr, 4.7 mls/hr Documented by: [id number] Cosigned by: [id number] Sodium Chloride (Nss 1000ml) 1,000 mls @ 999 mls/hr IV .Q1H1M ONE Stop: 05/31/19 22:59 Last Infusion: 05/31/19 23:33 Dose: 0 mls/hr Documented by: [id number] Admin: 05/31/19 22:09 Dose: 999 mls/hr Documented by: [id number] Insulin Human Regular 4.5 (units/ Syringe) 4.5 mls @ 0 mls/min IV TODAY@2215 ONE Stop: 05/31/19 22:16 Last Admin: 05/31/19 22:33 Dose: 1 mls/min Documented by: [id number] Cosigned by: [id number] Potassium Chloride/Sodium Chloride (Normal Saline W/20 Meq Kcl) 20 meq in 1,000 mls @ 50 mls/hr IV .Q20H ONE Stop: 06/01/19 20:59 Last Infusion: 06/01/19 14:56 Dose: 0 mls/hr Documented by: [id number] Admin: 06/01/19 01:10 Dose: 50 mls/hr Documented by: [id number] Doxycycline Hyclate 100 mg/ (Dextrose) 110 mls @ 50 mls/hr IV ONE ONE Stop: 06/01/19 07:56 Last Infusion: 06/01/19 08:13 Dose: 0 mls/hr Documented by: [id number] Admin: 06/01/19 06:15 Dose: 50 mls/hr Documented by: [id number] Insulin Glargine (Lantus Solostar Pen) 20 units SQ ONE ONE Stop: 06/01/19 01:01 Last Admin: 06/01/19 01:04 Dose: 20 units Documented by: [id number] Cosigned by: [id number] Insulin Glargine (Lantus Solostar Pen) 30 units SQ BID DIANE Stop: 07/01/19 07:59 Last Admin: 06/01/19 08:06 Dose: 30 units Documented by: [id number] Cosigned by: [id number] Insulin Human Isoph/Insulin Regular (Novolin 70/30 Regular) 20 units SC QDD DIANE Stop: 06/01/19 16:31 Last Admin: 06/01/19 18:25 Dose: 20 units Documented by: [id number] Cosigned by: [id number] Insulin Human Regular (Novolin R U-100 Per Unit) 10 units IV NOW STA Stop: 05/31/19 20:47 Last Admin: 05/31/19 21:01 Dose: 10 units Documented by: [id number] Cosigned by: [id number] Miscellaneous (Insulin Protocol Moderate Stress Level) 1 ea N/A ONE ONE Stop: 05/31/19 21:44 Last Admin: 06/01/19 01:29 Dose: Not Given Documented by: [id number] Ondansetron HCl (Zofran) 4 mg IV NOW STA Stop: 05/31/19 20:41 Last Admin: 05/31/19 21:01 Dose: 4 mg Documented by: [id number] Oxycodone HCl (Roxicodone Immediate Rel) 5 mg PO Q4H PRN PRN Reason: Pain Stop: 06/15/19 00:37 Last Admin: 06/01/19 04:22 Dose: 5 mg Documented by: [id number] Medical Decision Making Differential Diagnosis differential diagnosis: hyperglycemia, DKA, renal or liver failure, UTI, pneumonia, electrolyte imbalance, angina, [place] Medical Records Attestation: I reviewed the patient's medical records. Home Medications Current Medication List: was personally reviewed by me Laboratory Data Attestation: I reviewed the patient's lab results. Result diagrams: 06/01/19 04:56 06/01/19 07:55 Lab Results 05/31/19 05/31/19 05/31/19 Range/Units 20:37 20:38 20:40 WBC 7.73 (4.8-10.8) K/uL RBC 5.46 (4.7-6.1) M/uL Hgb 15.7 (14.0-18.0) g/dL Hct 44.8 (42-52) % MCV 82.1 (80-100) fL MCH 28.8 (25-34) pg MCHC 35.0 (32-36) g/dL Plt Count 232 (130-400) K/uL Immature Gran % (Auto) 0.3 % Neut % (Auto) 57.7 % Lymph % (Auto) 30.3 % [place] % (Auto) 10.7 % Eos % (Auto) 0.9 % Baso % (Auto) 0.1 % Immature Gran # (Auto) 0.02 (0.00-0.02) K/uL Neut # (Auto) 4.46 (1.4-6.5) K/uL Lymph # (Auto) 2.34 (1.2-3.4) K/uL [place] # (Auto) 0.83 H (0.11-0.59) K/uL Eos # (Auto) 0.07 (0-0.5) K/uL Baso # (Auto) 0.01 (0-0.2) K/uL APTT (21.0-31.0) Seconds PTT Ratio VBG pH (7.36-7.41) VBG pCO2 (38-50) mmHg VBG pO2 mmHg VBG HCO3 mmol/L VBG O2 Saturation % VBG Base Excess mEq/L Barometric Pressure mm/Hg Sodium (136-145) mmol/L Potassium (3.5-5.1) mmol/L Chloride (98-107) mmol/L Carbon Dioxide (21-32) mmol/L Anion Gap (3-11) BUN (7-18) mg/dl Creatinine (0.6-1.4) mg/dl Est Cr Clr Drug Dosing ml/min Est GFR ( Amer) Est GFR (Non-Af Amer) BUN/Creatinine Ratio (10-20) Glucose (70-99) mg/dl POC Glucose > 600 H* > 600 H* (70-99) Osmolality (280-300) mOsm/kg Lactate (0.4-2.0) mmol/L Calcium (8.5-10.1) mg/dl Magnesium (1.8-2.4) mg/dl Total Bilirubin (0.2-1) mg/dl AST (15-37) U/L ALT (12-78) U/L Alkaline Phosphatase (45-117) U/L Troponin I (0-0.045) ng/ml Total Protein (6.4-8.2) gm/dl Albumin (3.4-5.0) gm/dl Globulin (2.5-4.0) gm/dl Albumin/Globulin Ratio (0.9-2) Beta-Hydroxybutyric Acd (0.2-2.81) mg/dl TSH (0.300-4.500) uIu/ml Urine Color Urine Appearance (Clear) Urine pH (4.5-7.5) Ur Specific [place] (1.000-1.030) Urine Protein (Negative) Urine Glucose (UA) (Negative) Urine Ketones (Negative) Urine Blood (Negative) Urine Nitrite (Negative) Urine Bilirubin (Negative) Urine Urobilinogen (Negative) Ur Leukocyte Esterase (Negative) 05/31/19 05/31/19 05/31/19 Range/Units 20:40 20:40 20:40 WBC (4.8-10.8) K/uL RBC (4.7-6.1) M/uL Hgb (14.0-18.0) g/dL Hct (42-52) % MCV (80-100) fL MCH (25-34) pg MCHC (32-36) g/dL Plt Count (130-400) K/uL Immature Gran % (Auto) % Neut % (Auto) % Lymph % (Auto) % [place] % (Auto) % Eos % (Auto) % Baso % (Auto) % Immature Gran # (Auto) (0.00-0.02) K/uL Neut # (Auto) (1.4-6.5) K/uL Lymph # (Auto) (1.2-3.4) K/uL [place] # (Auto) (0.11-0.59) K/uL Eos # (Auto) (0-0.5) K/uL Baso # (Auto) (0-0.2) K/uL APTT 24.2 (21.0-31.0) Seconds PTT Ratio 0.9 VBG pH (7.36-7.41) VBG pCO2 (38-50) mmHg VBG pO2 mmHg VBG HCO3 mmol/L VBG O2 Saturation % VBG Base Excess mEq/L Barometric Pressure mm/Hg Sodium 125 L (136-145) mmol/L Potassium 4.1 (3.5-5.1) mmol/L Chloride 90 L (98-107) mmol/L Carbon Dioxide 23 (21-32) mmol/L Anion Gap 12.0 H (3-11) BUN 15 (7-18) mg/dl Creatinine 1.44 H (0.6-1.4) mg/dl Est Cr Clr Drug Dosing 127.5 ml/min Est GFR ( Amer) 71.9 Est GFR (Non-Af Amer) 62.0 BUN/Creatinine Ratio 10.1 (10-20) Glucose 860 H* (70-99) mg/dl POC Glucose (70-99) Osmolality 323 H (280-300) mOsm/kg Lactate (0.4-2.0) mmol/L Calcium 8.2 L (8.5-10.1) mg/dl Magnesium 2.2 (1.8-2.4) mg/dl Total Bilirubin 0.3 (0.2-1) mg/dl AST 15 (15-37) U/L ALT 48 (12-78) U/L Alkaline Phosphatase 85 (45-117) U/L Troponin I < 0.015 (0-0.045) ng/ml Total Protein 7.1 (6.4-8.2) gm/dl Albumin 3.2 L (3.4-5.0) gm/dl Globulin 3.9 (2.5-4.0) gm/dl Albumin/Globulin Ratio 0.8 L (0.9-2) Beta-Hydroxybutyric Acd 2.12 (0.2-2.81) mg/dl TSH 1.520 (0.300-4.500) uIu/ml Urine Color Urine Appearance (Clear) Urine pH (4.5-7.5) Ur Specific [place] (1.000-1.030) Urine Protein (Negative) Urine Glucose (UA) (Negative) Urine Ketones (Negative) Urine Blood (Negative) Urine Nitrite (Negative) Urine Bilirubin (Negative) Urine Urobilinogen (Negative) Ur Leukocyte Esterase (Negative) 05/31/19 05/31/19 05/31/19 Range/Units 20:45 21:03 21:03 WBC (4.8-10.8) K/uL RBC (4.7-6.1) M/uL Hgb (14.0-18.0) g/dL Hct (42-52) % MCV (80-100) fL MCH (25-34) pg MCHC (32-36) g/dL Plt Count (130-400) K/uL Immature Gran % (Auto) % Neut % (Auto) % Lymph % (Auto) % [place] % (Auto) % Eos % (Auto) % Baso % (Auto) % Immature Gran # (Auto) (0.00-0.02) K/uL Neut # (Auto) (1.4-6.5) K/uL Lymph # (Auto) (1.2-3.4) K/uL [place] # (Auto) (0.11-0.59) K/uL Eos # (Auto) (0-0.5) K/uL Baso # (Auto) (0-0.2) K/uL APTT (21.0-31.0) Seconds PTT Ratio VBG pH 7.41 (7.36-7.41) VBG pCO2 37 L (38-50) mmHg VBG pO2 65 mmHg VBG HCO3 23 mmol/L VBG O2 Saturation 92.9 % VBG Base Excess -1.6 mEq/L Barometric Pressure 732.0 mm/Hg Sodium (136-145) mmol/L Potassium (3.5-5.1) mmol/L Chloride (98-107) mmol/L Carbon Dioxide (21-32) mmol/L Anion Gap (3-11) BUN (7-18) mg/dl Creatinine (0.6-1.4) mg/dl Est Cr Clr Drug Dosing ml/min Est GFR ( Amer) Est GFR (Non-Af Amer) BUN/Creatinine Ratio (10-20) Glucose (70-99) mg/dl POC Glucose (70-99) Osmolality (280-300) mOsm/kg Lactate 2.3 H* (0.4-2.0) mmol/L Calcium (8.5-10.1) mg/dl Magnesium (1.8-2.4) mg/dl Total Bilirubin (0.2-1) mg/dl AST (15-37) U/L ALT (12-78) U/L Alkaline Phosphatase (45-117) U/L Troponin I (0-0.045) ng/ml Total Protein (6.4-8.2) gm/dl Albumin (3.4-5.0) gm/dl Globulin (2.5-4.0) gm/dl Albumin/Globulin Ratio (0.9-2) Beta-Hydroxybutyric Acd (0.2-2.81) mg/dl TSH (0.300-4.500) uIu/ml Urine Color Yellow Urine Appearance Clear (Clear) Urine pH 5.5 (4.5-7.5) Ur Specific [place] 1.033 H (1.000-1.030) Urine Protein Negative (Negative) Urine Glucose (UA) 3+ H (Negative) Urine Ketones Negative (Negative) Urine Blood Negative (Negative) Urine Nitrite Negative (Negative) Urine Bilirubin Negative (Negative) Urine Urobilinogen Negative (Negative) Ur Leukocyte Esterase Negative (Negative) ECG Data Attestation: I personally reviewed and interpreted this ECG as follows: Indication: chest pain Rate (beats per minute): 86 Rhythm: sinus rhythm Findings: no PVC and no ST elevation Blood Pressure Blood Pressure Findings: Elevated blood pressure Blood Pressure Disposition: further management by hospitalist [facility] Narrative There is no leukocytosis or concerning anemia. VBG does not show any acidosis. Renal panel testing shows a sugar at 860. Sodium was low at 125. Creatinine somewhat elevated at 1.4. Lactic acid level is elevated, this elevation is likely consistent with dehydration. There was no liver enzyme elevation. Patient appeared to be in a euthyroid state. EKG shows a sinus rhythm, no acute ischemia. Cardiac enzyme testing x1 is not consistent with acute cardiac injury. Chest film does not show pneumonia or CHF. On exam, I did not find any evidence for cellulitis. The patient had received 1 L of IV saline prior to arrival. He was given an additional liter here while in the ED. Patient received IV insulin, 10 units as a bolus. He was then placed on an insulin drip. He received IV Pepcid for complaints of heartburn. He received IV Zofran for nausea. The patient presents hyperglycemic with chest pain and dizziness. He is quite dehydrated. He will require a hospital stay for IV hydration and IV insulin. He needs further cardiac work-up. I spoke to the patient, I talked with case management. The on-call hospitalist was consulted. Impression & Plan Hyperglycemia, Dehydration, Dizziness, Chest pain, precordial Critical Care Time Critical Care Time: Yes Total Critical Care Time: 36 I have personally spent greater than 36 minutes of critical care time in the direct management of this patient. This includes bedside care, interpretation of diagnostic studies, and testing, discussion with consultants, patient, and family members, and other required patient management activities. This 36 minutes is in excess of all separately billable procedures. Discharge Plan Visit Data *Final* Discharge Date/Time: 06/01/19 00:12 Chief Complaint: Hyperglycemia Stated Complaint: HYPERGLYCEMIA ED Provider: Alvaro Taylor Discharge Problem: Hyperglycemia, Dehydration, Dizziness, Chest pain, precordial Patient Disposition: Admitted As Inpatient Discharge Instructions Interventions: ED Discharge Assessment Last Done: 06/01/19 00:12 The scribe's documentation has been prepared under my direction and personally reviewed by me in its entirety. I confirm that the note above accurately reflects all work, treatment, procedures, and medical decision making performed by me.
--- NOTE | 2019-05-31 23:16 | History & Physical Report ---
Date of Service May 31, 2019 Assessment & Plan (1) Hyperglycemic crisis in diabetes mellitus: Secondary to insulin procurement issues owing to insurance concerns History DM 2, insulin requiring Suboptimal control as of recent outpatient hemoglobin A1c of 9.2 last November 2018 Pseudohyponatremia, ARF secondary to hyperglycemic crisis Chest pain secondary to reflux hypertension, elevated secondary to illness Not compliant with home lisinopril Rx LE pain likely secondary to DM neuropathy, rule out DVT mood disorder, at baseline ongoing tobacco abuse chronic abdominal wall ulcer, scant foul-smelling drainage, no sepsis history of MRSA as per records PCU IV insulin overlapping with basal subcutaneous insulin Recheck hemoglobin A1c May benefit from pharmacy glycemic consultation. Monitor creatinine response to IV fluid. Initiate lisinopril for blood pressure if renal function improved in a.m. Follow troponin, initiate H2 justice if with recurrent GERD symptoms Ultrasound LE venous Dopplers ro DVT Wound cultures, Doxycycline for wound infection, wound care consult Nicotine patch PRN Social service consult RE financial assistance to procure home insulin rx DVT prophylaxis. Lovenox subcu Full code History of Present Illness Chief Complaint: High sugars, chest pain Primary Care Provider: Elliot Benites, History obtained from patient, family, and records. Medical history significant for DM 2, insulin requiring, hypertension, mood disorder, ongoing tobacco abuse, chronic abdominal wall wound, history of MRSA as per records. Recent confinement August 2018 for [facility]. Last month, patient ran out of insulin secondary to insurance issues. The last few weeks, blood sugars at home noted to be 300s and even undetectable. Patient thirsty and peeing a lot. Patient had burning chest pain right reflux after consuming pizza few hours ago. No shortness of breath, cough symptoms productive of clear sputum. Chronic headache symptoms attributed to sinus congestion as per patient. Patient also complaining of bilateral lower extremity aches for weeks now. At the ER, IV insulin started for BSG in the 800s. Chest pain relieved by Famotidine administration. Medical History as above TTE 2018 showed grossly normal LV systolic function. Grossly normal cardiac valves. Right heart not well visualized. 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 Verified 02/01/18 00:10 Cephalosporins Allergy Unknown Unknown Verified 05/31/19 21:23 Penicillins Allergy Unknown Unknown Verified 05/31/19 21:23 Sulfa (Sulfonamide Allergy Unknown Unknown Verified 05/31/19 21:23 Antibiotics) sulfamethoxazole Allergy Unknown Unknown Verified 05/31/19 21:23 trimethoprim Allergy Unknown Unknown Verified 05/31/19 21:23 Home Medications Home Medications Medication Instructions Recorded Confirmed Type albuterol sulfate [Ventolin HFA] 2 puff INHALATION QID PRN 06/17/18 05/31/19 History ibuprofen [IBU] 600 mg PO TID PRN 06/17/18 05/31/19 History insulin glargine [Basaglar KwikPen 20 unit SUBCUT DAILY 05/31/19 05/31/19 History U-100 Insulin] metformin 1,000 mg PO DAILY 05/31/19 05/31/19 History Past Med/Surg History Medical History Skin ulcer (Acute) MRSA (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 (Acute) Discharge planning issues (Acute) DVT prophylaxis (Acute) Diabetes mellitus with hyperosmolarity without hyperglycemic hyperosmolar nonketotic coma (Acute) Depression (Chronic) Bipolar I disorder (Chronic) Diabetes mellitus, type II (Chronic) Tobacco use disorder (Chronic) ADD (attention deficit disorder) (Chronic) Asthma, exercise induced (Chronic) Morbid obesity (Chronic) Surgical History S/P appendectomy (Chronic) Family History Mother Hypertension Father Coronary heart disease Diabetes Brother Diabetes Social History Preferred Language: Greek Communication Ability: Effective Visual Impairment: No Limitations Hearing Ability: Normal Lumber Straightener Required: No Beliefs That Will Affect Care: None Current Living Situation: Family Other Information That Helps Us Care for You: Yes (Any assistance with Insulin) Feels Safe at Home: Yes Safety Concerns: Feels Safe At This Time Smoking Status: Never smoker Do You Dip or Chew Tobacco: No ; Second Hand Exposure: No ; Tobacco Cessation Education Requested by Patient: No Hx Alcohol Use: No Hx Substance Use: No Review of Systems Review of Systems: As per HPI, all 10 systems reviewed, chronic abdominal wound with intermittent foul drainage: all other ROS negative Physical Exam Physical Exam: GENERAL: Comfortable, obese, unkempt, no respiratory distress SKIN: Normal color, warm HEENT: [place] palpebral conjunctivae, no ptosis, dry buccal mucosa NECK : Supple, short neck, no tenderness CHEST : CTA, no tenderness HEART : RRR, no obvious murmurs ABDOMEN: Chronic wound lower anterior abdominal wall with scant foul-smelling drainage, some distention, nontender EXTREMITIES : bilateral LE swelling, no LE tenderness, no other conspicuous deformities noted NEUROLOGIC : Coherent, no facial asymmetry, no other gross focality Results & Data Vital Signs (Past 12 Hours) Vital Signs Temp Pulse Resp BP Pulse Ox 05/31/19 22:34 95 05/31/19 22:00 82 20 95 05/31/19 21:30 91 H 24 143/81 H 95 05/31/19 21:00 16 157/92 H 05/31/19 20:53 94 H 20 96 05/31/19 20:48 36.9 C 93 H 22 161/87 H 95 05/31/19 20:45 89 15 161/87 H 94 Laboratory Results Laboratory Results WBC 7.73 K/uL (4.8-10.8) 05/31/19 20:40 RBC 5.46 M/uL (4.7-6.1) 05/31/19 20:40 Hgb 15.7 g/dL (14.0-18.0) 05/31/19 20:40 Hct 44.8 % (42-52) 05/31/19 20:40 MCV 82.1 fL (80-100) 05/31/19 20:40 MCH 28.8 pg (25-34) 05/31/19 20:40 MCHC 35.0 g/dL (32-36) 05/31/19 20:40 Plt Count 232 K/uL (130-400) 05/31/19 20:40 Immature Gran % (Auto) 0.3 % 05/31/19 20:40 Neut % (Auto) 57.7 % 05/31/19 20:40 Lymph % (Auto) 30.3 % 05/31/19 20:40 [place] % (Auto) 10.7 % 05/31/19 20:40 Eos % (Auto) 0.9 % 05/31/19 20:40 Baso % (Auto) 0.1 % 05/31/19 20:40 Immature Gran # (Auto) 0.02 K/uL (0.00-0.02) 05/31/19 20:40 Neut # (Auto) 4.46 K/uL (1.4-6.5) 05/31/19 20:40 Lymph # (Auto) 2.34 K/uL (1.2-3.4) 05/31/19 20:40 [place] # (Auto) 0.83 K/uL (0.11-0.59) H 05/31/19 20:40 Eos # (Auto) 0.07 K/uL (0-0.5) 05/31/19 20:40 Baso # (Auto) 0.01 K/uL (0-0.2) 05/31/19 20:40 VBG pH 7.41 (7.36-7.41) 05/31/19 21:03 VBG pCO2 37 mmHg (38-50) L 05/31/19 21:03 VBG pO2 65 mmHg 05/31/19 21:03 VBG HCO3 23 mmol/L 05/31/19 21:03 VBG O2 Saturation 92.9 % 05/31/19 21:03 VBG Base Excess -1.6 mEq/L 05/31/19 21:03 Barometric Pressure 732.0 mm/Hg 05/31/19 21:03 Sodium 125 mmol/L (136-145) L 05/31/19 20:40 Potassium 4.1 mmol/L (3.5-5.1) 05/31/19 20:40 Chloride 90 mmol/L (98-107) L 05/31/19 20:40 Carbon Dioxide 23 mmol/L (21-32) 05/31/19 20:40 Anion Gap 12.0 (3-11) H 05/31/19 20:40 BUN 15 mg/dl (7-18) 05/31/19 20:40 Creatinine 1.44 mg/dl (0.6-1.4) H 05/31/19 20:40 Est Cr Clr Drug Dosing 127.5 ml/min 05/31/19 20:40 Est GFR ( Amer) 71.9 05/31/19 20:40 Est GFR (Non-Af Amer) 62.0 05/31/19 20:40 BUN/Creatinine Ratio 10.1 (10-20) 05/31/19 20:40 Glucose 860 mg/dl (70-99) H* 05/31/19 20:40 POC Glucose > 600 (70-99) H* 05/31/19 20:38 Osmolality 323 mOsm/kg (280-300) H 05/31/19 20:40 Lactate 2.3 mmol/L (0.4-2.0) H* 05/31/19 21:03 Calcium 8.2 mg/dl (8.5-10.1) L 05/31/19 20:40 Magnesium 2.2 mg/dl (1.8-2.4) 05/31/19 20:40 Total Bilirubin 0.3 mg/dl (0.2-1) 05/31/19 20:40 AST 15 U/L (15-37) 05/31/19 20:40 ALT 48 U/L (12-78) 05/31/19 20:40 Alkaline Phosphatase 85 U/L (45-117) 05/31/19 20:40 Troponin I < 0.015 ng/ml (0-0.045) 05/31/19 20:40 Total Protein 7.1 gm/dl (6.4-8.2) 05/31/19 20:40 Albumin 3.2 gm/dl (3.4-5.0) L 05/31/19 20:40 Globulin 3.9 gm/dl (2.5-4.0) 05/31/19 20:40 Albumin/Globulin Ratio 0.8 (0.9-2) L 05/31/19 20:40 Beta-Hydroxybutyric Acd 2.12 mg/dl (0.2-2.81) 05/31/19 20:40 TSH 1.520 uIu/ml (0.300-4.500) 05/31/19 20:40 Urine Color Yellow 05/31/19 20:45 Urine Appearance Clear (Clear) 05/31/19 20:45 Urine pH 5.5 (4.5-7.5) 05/31/19 20:45 Ur Specific [place] 1.033 (1.000-1.030) H 05/31/19 20:45 Urine Protein Negative (Negative) 05/31/19 20:45 Urine Glucose (UA) 3+ (Negative) H 05/31/19 20:45 Urine Ketones Negative (Negative) 05/31/19 20:45 Urine Blood Negative (Negative) 05/31/19 20:45 Urine Nitrite Negative (Negative) 05/31/19 20:45 Urine Bilirubin Negative (Negative) 05/31/19 20:45 Urine Urobilinogen Negative (Negative) 05/31/19 20:45 Ur Leukocyte Esterase Negative (Negative) 05/31/19 20:45 Diagnostic Findings Chest x-ray showed cardiomegaly EKG as per my interpretation : Rate 85, NSR, normal axis, T wave flattening inferior leads
[2019-05-31] MEDS ORDERED: ACETAMINOPHEN 325 MG TAB PO STA (23:42)
[2019-06-01 00:15] LABS: Partial Thromboplastin Ratio 0.9; Partial Thromboplastin Time 24.2 Seconds (21.0-31.0)
[2019-06-01 00:19] LABS: BUN Creatinine Ratio 19.9 (10-20); Blood Urea Nitrogen 19 mg/dl (7-18); Calcium 7.7 mg/dl (8.5-10.1); Carbon Dioxide 22 mmol/L (21-32); Chloride 103 mmol/L (98-107); Creatinine Clr Calc Pharmacy 195.3 ml/min; Est GFR (African American) 120.4; Est GFR (Non-African American) 103.9; Glucose 402 mg/dl (70-99); Potassium 3.7 mmol/L (3.5-5.1); Sodium 135 mmol/L (136-145)
[2019-06-01] MEDS ORDERED: PROMETHAZINE HCL 12.5 MG in SODIUM CHLORIDE 0.9% 50 ML IV PRN (00:38)
[2019-06-01] MEDS ORDERED: NITROGLYCERIN SL 0.4 MG/TAB TAB SL PRN (00:38)
[2019-06-01] MEDS ORDERED: ACETAMINOPHEN 325 MG TAB PO PRN (00:38)
[2019-06-01] MEDS ORDERED: INSULIN PROTOCOL GOAL RANGE ONE (00:38)
[2019-06-01] MEDS ORDERED: OXYCODONE HCL IR 5 MG TAB (IMMEDIATE RELEASE) PO PRN (00:38)
[2019-06-01] MEDS ORDERED: INSULIN REGULAR 250 UNITS in SODIUM CHLORIDE 0.9% 247.5 ML IV SCH (00:38)
[2019-06-01] MEDS ORDERED: SODIUM CHLORIDE 0.65% NA SOLN 45 ML (OCEAN) PRN (00:39)
[2019-06-01 00:44] LABS: Troponin I < 0.015 ng/ml (0-0.045)
[2019-06-01] MEDS ORDERED: GLUCAGON FOR INJ 1 MG VIAL IM PRN (01:00)
[2019-06-01] MEDS ORDERED: INSULIN GLARGINE SOLOSTAR 100 UNITS/ML 3 ML PEN SQ ONE (01:00)
[2019-06-01] MEDS ORDERED: GLUCOSE 40% GEL 15 GM TUBE PO PRN ×2 (01:00→03:12)
[2019-06-01] MEDS ORDERED: GLUCOSE 10 TABS/TUBE PO PRN ×2 (01:00→03:12)
[2019-06-01] MEDS ORDERED: NSS + 20MEQ KCL 20 MEQ/1,000 ML BAG IV ONE (01:00)
[2019-06-01] MEDS ORDERED: CARBOHYDRATES FOR HYPOGLYCEMIA PO PRN ×2 (01:00→03:12)
[2019-06-01] MEDS ORDERED: DEXTROSE 50% 50 ML SYRINGE IV PRN ×2 (01:00→03:12)
[2019-06-01 01:18] LABS: Appearance Urine Clear (Clear); Bilirubin Urine Negative (Negative); Blood Urine Negative (Negative); Color Urine Yellow; Glucose Urine UA 3+ (Negative); Ketones Urine Negative (Negative); Leukocyte Esterase Urine Negative (Negative); Nitrite Urine Negative (Negative); Protein Urine Negative (Negative); Specific Gravity Urine 1.037 (1.000-1.030); Urobilinogen Urine Negative (Negative)
[2019-06-01] MEDS ORDERED: GLUCAGON FOR INJ 1 MG VIAL SQ PRN (03:12)
[2019-06-01] MEDS: INSULIN ASPART 100 UNITS/ML 3 ML PEN SC SCH ×5 (04:10→20:53)
[2019-06-01 05:15] LABS: Basophils # (auto) 0.02 K/uL (0-0.2); Basophils % (auto) 0.3 %; Eosinophils # (auto) 0.26 K/uL (0-0.5); Eosinophils % (auto) 3.8 %; Hematocrit (blood only) 38.7 % (42-52); Hemoglobin 13.5 g/dL (14.0-18.0); Immature Granulocytes # (auto) 0.03 K/uL (0.00-0.02); Immature Granulocytes % (auto) 0.4 %; Lymphocytes % (auto) 48.7 %; Mean Corpuscular Hemoglobin 28.9 pg (25-34); Mean Corpuscular Hgb Conc 34.9 g/dL (32-36); Mean Corpuscular Volume 82.9 fL (80-100); Mean Platelet Volume 10.8 fL (7.4-10.4); Monocytes # (auto) 0.64 K/uL (0.11-0.59); Monocytes % (auto) 9.5 %; Neutrophils # (auto) 2.52 K/uL (1.4-6.5); Neutrophils % (auto) 37.3 %; Platelet Count 199 K/uL (130-400); RDW Coefficient of Variation 13.2 % (11.5-14.5); RDW Standard Deviation 39.8 fL (36.4-46.3); Red Blood Count 4.67 M/uL (4.7-6.1); White Blood Count 6.77 K/uL (4.8-10.8)
[2019-06-01] MEDS ORDERED: DOXYCYCLINE HYCLATE 100 MG in DEXTROSE 5% 100 ML IV ONE (05:45)
--- NOTE | 2019-06-01 06:17 | Ultrasound Report ---
US venous doppler LE BI HISTORY: Pain. Edema. leg pain COMPARISON STUDY: None. FINDINGS: There is normal compressibility, flow, and augmentation within the bilateral lower extremit y deep venous systems. IMPRESSION: No DVT within the right or left lower extremity. The above report was generated using voice recognition software. It may contain grammatical, syntax or spelling errors. Electronically signed by: Amadou Diana M.D. 06/01/2019 6:15 AM
[2019-06-01 06:27] LABS: Estimated Average Glucose 332 mg/dl; Hemoglobin A1C 13.2 % (4.5-5.6)
[2019-06-01] MEDS ORDERED: INSULIN ASPART 100 UNITS/ML 3 ML PEN SC SCH ×2 (07:30)
[2019-06-01] MEDS ORDERED: INSULIN GLARGINE SOLOSTAR 100 UNITS/ML 3 ML PEN SQ SCH ×3 (08:00→09:00)
[2019-06-01] MEDS: ENOXAPARIN INJ 40 MG/0.4 ML SYR SQ SCH (08:09)
[2019-06-01 08:49] LABS: BUN Creatinine Ratio 19.9 (10-20); Calcium 8.2 mg/dl (8.5-10.1); Creatinine Clr Calc Pharmacy 265.8 ml/min; Est GFR (African American) 141.6; Est GFR (Non-African American) 122.1; Potassium 3.9 mmol/L (3.5-5.1)
--- NOTE | 2019-06-01 14:48 | Hospitalist Progress Note ---
Date of Service June 01, 2019 Assessment & Plan (1) Uncontrolled diabetes mellitus: Health insurance was cancelled recently and hyperglycemia is 2/2 noncompliance with medication. Will switch to 70/30 which is a more affordable option. Was unable to tolerate metformin IR well, so would depend on insulin monotherapy at this point and continue lifestyle and diet modifications to lose weight. Glycemic pharmacist to help with conversion and fast titration overnight. Plan to DC him with [facility] follow-up locally. A1C>13. (2) Dehydration: 2/2 hyperglycemia. Improved after IVF resuscitation overnight. DC IVF at this time and he is eating reliably. (3) Skin ulcer: Started on doxycycline for possible superficial infection. Will cont course. Apprec wound care nurse care recommendations. Will need follow-up with outpatient wound care at time of discharge. (4) MRSA (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: isolation precautions. (5) Morbid obesity: counseled on the importance of lifestyle and diet modifications to lose weight. (6) Tobacco use disorder: Counseled on the importance of quitting smoking. Contemplative phase. (7) Bipolar I disorder: chronic, stable. Doesn't take medications for this at home. (8) DVT prophylaxis: Lovenox. Full Dispo-transfer to MEd/Surg. Cont titration of insulin with plan to dc home in am. 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 Briefly touched on this with him today but will need to address more fully at time of discharge. Karlee Nix DO [facility] Hospitalist Subjective 34 yo T2 diabetic who lost his [employer] insurance one month ago and has had elevated blood sugars for that time. He subsequently developed severe dehydration that was concerning to him. He did have some mild chest pain at one time, but this was relieved quickly with IVF administration. He denies chest pain or shortness of breath. Trop negative overnight and EKG with without evidence of active ischemia. Feeling better today and tolerating PO. Denies n/v/d. Denies pain. Review of Systems Review of Systems: All systems reviewed & are unremarkable except as noted in HPI & below Physical Exam Physical Exam: CONSTITUTIONAL: morbid obesity, vitals as above, generally well-appearing EYES: PERRL, normal conjunctivae, no scleral icterus ENT: MMM RESPIRATORY: clear to auscultation bilaterally, no crackles, rales or wheezes, normal respiratory effort CARDIOVASCULAR: regular rate and rhythm, S1 and 2 heard without murmurs, gallops or rubs, no JVD, no peripheral edema GASTROINTESTINAL: normal bowel sounds, soft, nontender, protuberant abdomen with large pannus and multiple skin folds. Small ulceration+ no surrounding erythema. MUSCULOSKELETAL: strength 5/5 throughout, head is normocephalic and atraumatic SKIN: warm and dry NEUROLOGIC: CN 2-12 grossly intact, normal cognition, normal speech, no tremor, no gross focal deficits. PSYCHIATRIC: alert cooperative and oriented to person, place and time. Results & Data Vital Signs (Past 12 Hours) Vital Signs Temp Pulse Resp BP Pulse Ox 06/01/19 11:47 36.7 C 81 20 120/74 90 06/01/19 07:30 36.5 C 82 20 141/69 H 98 06/01/19 03:15 36.5 C 76 18 130/70 95 Laboratory Results Short CBC 05/31/19 06/01/19 Range/Units 20:40 04:56 WBC 7.73 6.77 (4.8-10.8) K/uL Hgb 15.7 13.5 L (14.0-18.0) g/dL Hct 44.8 38.7 L (42-52) % Plt Count 232 199 (130-400) K/uL BMP 05/31/19 05/31/19 06/01/19 20:40 23:47 07:55 Sodium 125 L 135 L D 136 Potassium 4.1 3.7 3.9 Chloride 90 L 103 104 Carbon Dioxide 23 22 26 BUN 15 19 H 14 Creatinine 1.44 H 0.94 D 0.69 Glucose 860 H* 402 H* 299 H Calcium 8.2 L 7.7 L 8.2 L Cardiac Enzymes 05/31/19 05/31/19 06/01/19 Range/Units 20:40 23:47 04:56 Troponin I < 0.015 < 0.015 < 0.015 (0-0.045) ng/ml Liver Function 05/31/19 Range/Units 20:40 Total Bilirubin 0.3 (0.2-1) mg/dl AST 15 (15-37) U/L ALT 48 (12-78) U/L Alkaline Phosphatase 85 (45-117) U/L Albumin 3.2 L (3.4-5.0) gm/dl Urine 05/31/19 06/01/19 Range/Units 20:45 01:00 Urine Color Yellow Yellow Urine Appearance Clear Clear (Clear) Urine pH 5.5 5.0 (4.5-7.5) Ur Specific [place] 1.033 H 1.037 H (1.000-1.030) Urine Protein Negative Negative (Negative) Urine Glucose (UA) 3+ H 3+ H (Negative) Medications Administered Current Inpatient Medications Acetaminophen (Tylenol) 650 mg PO Q4H PRN PRN Reason: Pain or Fever Stop: 07/01/19 00:37 Dextrose (Dextrose 50%) 25 - 50 ml IV UD PRN; Protocol PRN Reason: Hypoglycemia Protocol Stop: 07/01/19 00:59 Doxycycline Hyclate (Vibramycin) 100 mg PO BID [facility] Stop: 06/11/19 20:59 Enoxaparin Sodium (Lovenox) 40 mg SQ QAM [facility] Stop: 07/01/19 08:59 Last Admin: 06/01/19 08:09 Dose: Not Given Documented by: Glucagon (Glucagen) 1 mg IM UD PRN; Protocol PRN Reason: Hypoglycemia Protocol Stop: 07/01/19 00:59 Glucose (Glucose 40%) 15 - 30 gm PO UD PRN; Protocol PRN Reason: Hypoglycemia Protocol Stop: 07/01/19 00:59 Glucose (Dex4 Glucose) 4 - 8 tabs PO UD PRN; Protocol PRN Reason: Hypoglycemia Protocol Stop: 07/01/19 00:59 Insulin Aspart (Novolog Flexpen) 0 units SC ACHS [facility] Stop: 07/01/19 03:59 Last Admin: 06/01/19 11:53 Dose: 7 units Documented by: Insulin Glargine (Lantus Solostar Pen) 30 units SQ BID [facility] Stop: 07/01/19 07:59 Last Admin: 06/01/19 08:06 Dose: 30 units Documented by: Miscellaneous (Carbohydrates For Hypoglycemia) 15 - 30 gm PO UD PRN PRN Reason: Hypoglycemia Treatment Stop: 07/01/19 00:59 Miscellaneous Information (Consult Glycemic Management Pharmacy) 1 ea N/A UD PRN PRN Reason: Consult Stop: 07/01/19 14:48 Nitroglycerin (Nitrostat) 0.4 mg SL UD PRN PRN Reason: Chest Pain Stop: 07/01/19 00:37 Sodium Chloride ([place] Nasal) 2 sprays NA TID PRN PRN Reason: nasal congestion Stop: 07/01/19 00:38
[2019-06-01] MEDS ORDERED: PHARMACY GLYCEMIC MGMT CONSULT PRN (14:49)
--- NOTE | 2019-06-01 15:15 | Wound Consultation ---
Date of Consultation June 01, 2019 Assessment & Plan (1) Chronic abdominal wound infection: This is a 34-year-old male with poorly controlled diabetes and chronic abdominal wound. No debridement was required today. Will be dressed with Kiley and covered with OPTi foam. Patient can be seen in the wound clinic after discharge. Thank you for allowing me to participate in the care of this patient. Please not hesitate to call with any questions. History of Present Illness Reason for Consultation: Chronic abdominal wound Attending Physician: Karlee Nix DO This is a 34-year-old male who was admitted with hyperglycemia and dehydration and was found to have a chronic abdominal wound. Patient states that his belt buckle used to rub on the surgical wound causing it to dehisced. Patient stopped wearing a belt but his jeans button still rubs on there. Allergies Allergy/AdvReac Type Severity Reaction Status Date / Time aspirin Allergy Unknown Unknown Verified 05/31/19 21:23 Bactrim Allergy Unknown . Verified 02/01/18 00:10 Cephalosporins Allergy Unknown Unknown Verified 05/31/19 21:23 Penicillins Allergy Unknown Unknown Verified 05/31/19 21:23 Sulfa (Sulfonamide Allergy Unknown Unknown Verified 05/31/19 21:23 Antibiotics) sulfamethoxazole Allergy Unknown Unknown Verified 05/31/19 21:23 trimethoprim Allergy Unknown Unknown Verified 05/31/19 21:23 Home Medications Home Medications Medication Instructions Recorded Confirmed Type albuterol sulfate [Ventolin HFA] 2 puff INHALATION QID PRN 06/17/18 05/31/19 History ibuprofen [IBU] 600 mg PO TID PRN 06/17/18 05/31/19 History insulin glargine [Basaglar KwikPen 20 unit SUBCUT DAILY 05/31/19 05/31/19 History U-100 Insulin] metformin 1,000 mg PO DAILY 05/31/19 05/31/19 History Patient History Medical History Skin ulcer (Acute) MRSA (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 (Acute) Discharge planning issues (Acute) DVT prophylaxis (Acute) Diabetes mellitus with hyperosmolarity without hyperglycemic hyperosmolar nonketotic coma (Acute) Depression (Chronic) Bipolar I disorder (Chronic) Diabetes mellitus, type II (Chronic) Tobacco use disorder (Chronic) ADD (attention deficit disorder) (Chronic) Asthma, exercise induced (Chronic) Morbid obesity (Chronic) Surgical History S/P appendectomy (Chronic) Family History Mother Hypertension Father Coronary heart disease Diabetes Brother Diabetes Social History Preferred Language: French Communication Ability: Effective Visual Impairment: No Limitations Hearing Ability: Normal Route Manager Required: No Beliefs That Will Affect Care: None Current Living Situation: Family Other Information That Helps Us Care for You: Yes (Any assistance with Insulin) Feels Safe at Home: Yes Safety Concerns: Feels Safe At This Time Smoking Status: Never smoker Do You Dip or Chew Tobacco: No ; Second Hand Exposure: No ; Tobacco Cessation Education Requested by Patient: No Hx Alcohol Use: No Hx Substance Use: No Review of Systems Review of Systems: All systems reviewed & are unremarkable except as noted in HPI & below Physical Exam Constitutional: WD/WN, vitals as above Skin: Wound measuring 2.8 x 1.9 x 0.3 cm. Wound is covered with fibrin and slough. Periwound is intact. There is minimal drainage no foul odor. Neurologic: awake; not confused Psychiatric: A+Ox3, euthymic affect Results & Data Vital Signs (Past 12 Hours) Vital Signs Temp Pulse Resp BP Pulse Ox 06/01/19 11:47 36.7 C 81 20 120/74 90 06/01/19 07:30 36.5 C 82 20 141/69 H 98 06/01/19 03:15 36.5 C 76 18 130/70 95 PG Care Time/CCT Total # of Minutes Spent Total Time Spent with Patient: Total time spent is greater than 50% in coordination of care (as documented) at patient's floor/unit and/or counseling patient: (1) Chronic abdominal wound infection Encounter type: initial encounter Qualified Code(s): S31.109A - Unspecified open wound of abdominal wall, unspecified quadrant without penetration into peritoneal cavity, initial encounter; L08.9 - Local infection of the skin and subcutaneous tissue, unspecified
--- NOTE | 2019-06-01 15:49 | Pharmacy Report ---
Pharmacy Glycemic Short Note 2 - Date of Service June 01, 2019 - Glycemic Short BSG Results (Last 24 hours): 05/31/19 05/31/19 05/31/19 20:37 20:38 20:40 Glucose 860 H* POC Glucose > 600 H* > 600 H* 05/31/19 05/31/19 06/01/19 23:26 23:47 00:39 Glucose 402 H* POC Glucose 417 H* 336 H* 06/01/19 06/01/19 06/01/19 01:55 03:07 04:02 Glucose POC Glucose 226 H 183 H 190 H 06/01/19 06/01/19 06/01/19 07:30 07:55 11:04 Glucose 299 H POC Glucose 244 H 294 H OUTPATIENT ANTIDIABETIC REGIMEN: * Basaglar 20 units SQ daily * Metformin 1gm PO BID * HbA1c: 13.2% (06/01/19) * Patient has not been taking his anti-diabetic medications for at least one month d/t insurance/cost issues ASSESSMENT: * Mr Staley is a 34yo diabetic male who presents with [facility] after having been without his diabetic meds for at least one month. * Prior to stopping his meds (d/t cost issues) he reports that he had good glycemic control on Basaglar 20 units daily plus Metformin 1gm BID. * Patient has been receiving Lantus/Novolog thus far during admission, but will be transitioning to Novolin 70/30 after discharge for affordability. * Patient has received ~90-100 units of insulin during the past 24 hours, with some resolution in BSGs. PLAN FOR INPATIENT GLYCEMIC CONTROL: * Resume Metformin ER 1000mg PO BID, starting with dinner this evening * Basal insulin * Novolin 70/30 20 units with dinner this evening, then * Novolin 70/30 30 units qAM, 15 units qPM * Bolus insulin * NovoLog per scale ACHS plus 0000 and 0400 * Goal Range: Low 110 mg/dL - High 150 mg/dL * Correction Factor: 15 mg/dL/unit * Nutritional / Prandial insulin: provided by 70/30 insulin PLAN FOR DISCHARGE: * Patient's A1c (13.2%) indicates extremely poor glycemic control, which is not unexpected d/t patient omitting his anti-diabetic meds recently. * For discharge, recommend: * Novolin 70/30 30 units SQ qAM, 15 units SQ qPM (cost is ~$25/bottle at [facility]) * Metformin ER 1000mg PO BID with meals (cost is $4/month, $ at [facility]) * Suspect that insulin will require up-titration as an outpatient. Recommend f/u with PCP after discharge until BSGs have stabilized. * Recommend more frequent monitoring after discharge until stable insulin regimen in established.
[2019-06-01] MEDS ORDERED: ALBUTEROL HFA 8 GM INHALER INH PRN (16:08)
[2019-06-01] MEDS ORDERED: INSULIN HUMAN 70% NPH/30% REGULAR SC SCH (16:30)
[2019-06-01] MEDS: METFORMIN HCL ER 500 MG TABCR PO SCH (17:35)
[2019-06-01] MEDS: DOXYCYCLINE HYCLATE 100 MG CAP PO SCH (20:53)
[2019-06-01 22:09] LABS: Creatinine Urine Random 43.5 mg/dl; Protein Creatinine Ratio Urine 0.1 (0-0.2); Total Protein Urine Random 5.3 mg/dl (0-11.9)
[2019-06-02] MEDS: INSULIN ASPART 100 UNITS/ML 3 ML PEN SC SCH ×6 (00:12→20:37)
[2019-06-02 07:15] LABS: Hematocrit (blood only) 41.2 % (42-52); Hemoglobin 14.5 g/dL (14.0-18.0); Mean Corpuscular Hemoglobin 29.5 pg (25-34); Mean Corpuscular Hgb Conc 35.2 g/dL (32-36); Mean Corpuscular Volume 83.9 fL (80-100); Mean Platelet Volume 10.9 fL (7.4-10.4); Platelet Count 212 K/uL (130-400); RDW Coefficient of Variation 13.5 % (11.5-14.5); RDW Standard Deviation 40.8 fL (36.4-46.3); Red Blood Count 4.91 M/uL (4.7-6.1); White Blood Count 6.83 K/uL (4.8-10.8)
[2019-06-02] MEDS ORDERED: INSULIN HUMAN 70% NPH/30% REGULAR SC SCH ×3 (07:30→16:30)
[2019-06-02 07:45] LABS: BUN Creatinine Ratio 12.9 (10-20); Blood Urea Nitrogen 7 mg/dl (7-18); Calcium 8.6 mg/dl (8.5-10.1); Carbon Dioxide 27 mmol/L (21-32); Chloride 107 mmol/L (98-107); Creatinine Clr Calc Pharmacy 321.7 ml/min; Est GFR (African American) > 150.0; Est GFR (Non-African American) 132.1; Glucose 177 mg/dl (70-99); Magnesium 2.1 mg/dl (1.8-2.4); Potassium 3.8 mmol/L (3.5-5.1); Sodium 140 mmol/L (136-145)
[2019-06-02 07:51] LABS: Chol HDL Ratio 7; Cholesterol 199 mg/dl (0-200); HDL Cholesterol 30 mg/dl; LDL Cholesterol Calculated 98 mg/dl; Triglycerides 357 mg/dl (0-150); VLDL Cholesterol 71 mg/dl
[2019-06-02] MEDS: METFORMIN HCL ER 500 MG TABCR PO SCH (07:54)
[2019-06-02] MEDS: DOXYCYCLINE HYCLATE 100 MG CAP PO SCH (09:50)
[2019-06-02] MEDS: ENOXAPARIN INJ 40 MG/0.4 ML SYR SQ SCH ×2 (09:50→09:55)
--- NOTE | 2019-06-02 12:55 | Hospitalist Progress Note ---
Date of Service June 02, 2019 Assessment & Plan (1) Uncontrolled diabetes mellitus: A1C>13, good inpatient glycemic control-appreciate pharmacy help. Cont 70/30 (2) Dehydration: resolved, eating and drinking well. (3) Skin ulcer: Started on doxycycline for possible superficial infection. ID consulted as MRSA and strep returned and he has multiple allergies. Started clindamycin, which is being tolerated. (4) MRSA (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: isolation precautions. (5) Morbid obesity: counseled on the importance of lifestyle and diet modifications to lose weight. (6) Tobacco use disorder: Counseled on the importance of quitting smoking. Contemplative phase. (7) Bipolar I disorder: chronic, stable. Doesn't take medications for this at home. (8) DVT prophylaxis: Lovenox. Full Dispo-plans to dc home with [facility] followup when medically stable. Karlee Nix DO [facility] Hospitalist Subjective doing well, asymptomatic, no fevers or chills, tolerating PO without issue. Review of Systems Review of Systems: All systems reviewed & are unremarkable except as noted in HPI & below Physical Exam Physical Exam: CONSTITUTIONAL: morbid obesity, vitals as above, generally well-appearing EYES: PERRL, normal conjunctivae, no scleral icterus ENT: MMM RESPIRATORY: clear to auscultation bilaterally, no crackles, rales or wheezes, normal respiratory effort CARDIOVASCULAR: regular rate and rhythm, S1 and 2 heard without murmurs, gallops or rubs, no JVD, no peripheral edema GASTROINTESTINAL: normal bowel sounds, soft, nontender, protuberant abdomen with large pannus and multiple skin folds. Small ulceration+ no surrounding erythema. MUSCULOSKELETAL: strength 5/5 throughout, head is normocephalic and atraumatic SKIN: warm and dry NEUROLOGIC: CN 2-12 grossly intact, normal cognition, normal speech, no tremor, no gross focal deficits. PSYCHIATRIC: alert cooperative and oriented to person, place and time. Results & Data Vital Signs (Past 12 Hours) Vital Signs Temp Pulse Resp BP Pulse Ox 06/02/19 07:05 36.6 C 75 20 109/67 96 Laboratory Results Short CBC 06/02/19 Range/Units 06:30 WBC 6.83 (4.8-10.8) K/uL Hgb 14.5 (14.0-18.0) g/dL Hct 41.2 L (42-52) % Plt Count 212 (130-400) K/uL BMP 06/02/19 06:30 Sodium 140 Potassium 3.8 Chloride 107 Carbon Dioxide 27 BUN 7 D Creatinine 0.57 L Glucose 177 H Calcium 8.6 Medications Administered Current Inpatient Medications Acetaminophen (Tylenol) 650 mg PO Q4H PRN PRN Reason: Pain or Fever Stop: 07/01/19 00:37 Last Admin: 06/02/19 09:52 Dose: 650 mg Documented by: Albuterol (Ventolin Hfa) 2 puffs INH QID PRN PRN Reason: Shortness Of Breath Or Wheezing Stop: 07/01/19 16:07 Dextrose (Dextrose 50%) 25 - 50 ml IV UD PRN; Protocol PRN Reason: Hypoglycemia Protocol Stop: 07/01/19 00:59 Doxycycline Hyclate (Vibramycin) 100 mg PO BID [facility] Stop: 06/11/19 20:59 Last Admin: 06/02/19 09:50 Dose: 100 mg Documented by: Enoxaparin Sodium (Lovenox) 40 mg SQ QAM [facility] Stop: 07/01/19 08:59 Last Admin: 06/02/19 09:55 Dose: Not Given Documented by: Glucagon (Glucagen) 1 mg IM UD PRN; Protocol PRN Reason: Hypoglycemia Protocol Stop: 07/01/19 00:59 Glucose (Glucose 40%) 15 - 30 gm PO UD PRN; Protocol PRN Reason: Hypoglycemia Protocol Stop: 07/01/19 00:59 Glucose (Dex4 Glucose) 4 - 8 tabs PO UD PRN; Protocol PRN Reason: Hypoglycemia Protocol Stop: 07/01/19 00:59 Insulin Aspart (Novolog Flexpen) 0 units SC ACHS [facility] Stop: 07/01/19 03:59 Last Admin: 06/02/19 07:57 Dose: 3 units Documented by: Insulin Human Isoph/Insulin Regular (Novolin 70/30 Regular) 20 units SC QDD [facility] Stop: 07/02/19 16:29 Insulin Human Isoph/Insulin Regular (Novolin 70/30 Regular) 35 units SC QDB [facility] Stop: 07/03/19 07:29 Metformin HCl (Glucophage Er) 1,000 mg PO BIDM [facility] Stop: 07/01/19 16:59 Last Admin: 06/02/19 07:54 Dose: 1,000 mg Documented by: Miscellaneous (Carbohydrates For Hypoglycemia) 15 - 30 gm PO UD PRN PRN Reason: Hypoglycemia Treatment Stop: 07/01/19 00:59 Miscellaneous Information (Consult Glycemic Management Pharmacy) 1 ea N/A UD PRN PRN Reason: Consult Stop: 07/01/19 14:48 Nitroglycerin (Nitrostat) 0.4 mg SL UD PRN PRN Reason: Chest Pain Stop: 07/01/19 00:37 Sodium Chloride ([place] Nasal) 2 sprays NA TID PRN PRN Reason: nasal congestion Stop: 07/01/19 00:38
--- NOTE | 2019-06-02 15:02 | Pharmacy Report ---
Pharmacy Glycemic Short Note 2 - Date of Service June 02, 2019 - Glycemic Short BSG Results (Last 24 hours): 06/01/19 06/01/19 06/02/19 16:52 20:16 00:09 Glucose POC Glucose 208 H 231 H 256 H 06/02/19 06/02/19 06/02/19 04:08 06:30 07:47 Glucose 177 H POC Glucose 235 H 190 H 06/02/19 11:52 Glucose POC Glucose 216 H OUTPATIENT ANTIDIABETIC REGIMEN: * Basaglar 20 units SQ daily * Metformin 1gm PO BID * HbA1c: 13.2% (06/01/19) * Patient has not been taking his anti-diabetic medications for at least one month d/t insurance/cost issues ASSESSMENT: 06/02: * Mr. Staley received 82 units of insulin yesterday (50 units basal/32 units bolus). * Severe hyperglycemia has resolved but BSG values remain significantly above goal. I will increase dosing by ~20% today. Exact needs undetermined at this time. * He was been transitioned to novolin 70/30 yesterday due to cost. 06/01: * Mr Staley is a 34yo diabetic male who presents with [facility] after having been without his diabetic meds for at least one month. * Prior to stopping his meds (d/t cost issues) he reports that he had good glycemic control on Basaglar 20 units daily plus Metformin 1gm BID. * Patient has been receiving Lantus/Novolog thus far during admission, but will be transitioning to Novolin 70/30 after discharge for affordability. * Patient has received ~90-100 units of insulin during the past 24 hours, with some resolution in BSGs. PLAN FOR INPATIENT GLYCEMIC CONTROL: * Resume Metformin ER 1000mg PO BID, starting with dinner this evening * Basal insulin * Novolin 70/30 35 units qAM, 20 units qPM * Bolus insulin * NovoLog per scale ACHS plus 0000 and 0400 * Goal Range: Low 110 mg/dL - High 150 mg/dL * Correction Factor: 15 mg/dL/unit * Nutritional / Prandial insulin: provided by 70/30 insulin PLAN FOR DISCHARGE: * Patient's A1c (13.2%) indicates extremely poor glycemic control, which is not unexpected d/t patient omitting his anti-diabetic meds recently. * For discharge, recommend: * Novolin 70/30 30-35 units SQ qAM, 15-20 units SQ qPM (cost is ~$25/bottle at [facility]) * Metformin ER 1000mg PO BID with meals (cost is $4/month, $day at [facility]) * Suspect that insulin will require up-titration as an outpatient. Recommend f /u with PCP after discharge until BSGs have stabilized. * Recommend more frequent monitoring after discharge until stable insulin regimen in established.
[2019-06-02] MEDS: CLINDAMYCIN HCL 150 MG CAP PO SCH ×2 (17:30→23:39)
[2019-06-03 06:01] LABS: Hematocrit (blood only) 41.8 % (42-52); Hemoglobin 14.4 g/dL (14.0-18.0); Mean Corpuscular Hemoglobin 28.9 pg (25-34); Mean Corpuscular Hgb Conc 34.4 g/dL (32-36); Mean Corpuscular Volume 83.8 fL (80-100); Mean Platelet Volume 10.6 fL (7.4-10.4); Platelet Count 188 K/uL (130-400); RDW Coefficient of Variation 13.5 % (11.5-14.5); RDW Standard Deviation 41.2 fL (36.4-46.3); Red Blood Count 4.99 M/uL (4.7-6.1); White Blood Count 6.62 K/uL (4.8-10.8)
[2019-06-03] MEDS: CLINDAMYCIN HCL 150 MG CAP PO SCH ×2 (06:02→15:25)
[2019-06-03 06:45] LABS: BUN Creatinine Ratio 17.2 (10-20); Blood Urea Nitrogen 10 mg/dl (7-18); Calcium 8.2 mg/dl (8.5-10.1); Carbon Dioxide 24 mmol/L (21-32); Chloride 107 mmol/L (98-107); Creatinine Clr Calc Pharmacy 321.7 ml/min; Est GFR (African American) > 150.0; Est GFR (Non-African American) 132.1; Glucose 215 mg/dl (70-99); Potassium 3.5 mmol/L (3.5-5.1); Sodium 139 mmol/L (136-145)
[2019-06-03] MEDS ORDERED: INSULIN HUMAN 70% NPH/30% REGULAR SC SCH (07:30)
[2019-06-03] MEDS: ENOXAPARIN INJ 40 MG/0.4 ML SYR SQ SCH (09:08)
[2019-06-03] MEDS: INSULIN ASPART 100 UNITS/ML 3 ML PEN SC SCH ×2 (09:15→14:37)
--- NOTE | 2019-06-03 12:18 | Infectious Disease Consult ---
Date of Consultation June 03, 2019 Assessment & Plan (1) Chronic abdominal wound infection: Patient with chronically infected abdominal wound with staph aureus and group B strep. Staph aureus isolate is clindamycin sensitive, so would recommend oral clindamycin 300 mg 3 times daily for at least several weeks with follow-up at the wound care center. Will discuss. Will follow while in hospital. (2) MSSA (methicillin susceptible Staphylococcus aureus) infection: (3) Infection due to Streptococcus group B: History of Present Illness Reason for Consultation: Abdominal wound, multiple antibiotic allergies, an tibiotic recommendations Attending Physician: Karlee Nix DO History of Present Illness 34-year-old male with history of insulin-dependent diabetes mellitus, asthma, morbid obesity, attention deficit disorder, who was admitted May 31 with hyperglycemia due to lack of insulin. Patient has history of chronic abdominal wound for which she has been seen at the wound care center, and has been found to have positive cultures for MRSA and has been treated with doxycycline therapy with some improvement. He has been seen by wound care this admission, no significant debridement has been done. Patient now has been changed to clindamycin. No report of significant fever, pain in area of wound minimal. Anticipating discharge tomorrow. Allergies Allergy/AdvReac Type Severity Reaction Status Date / Time aspirin Allergy Unknown Unknown Verified 05/31/19 21:23 Bactrim Allergy Unknown . Verified 02/01/18 00:10 Cephalosporins Allergy Unknown Unknown Verified 05/31/19 21:23 Penicillins Allergy Unknown Unknown Verified 05/31/19 21:23 Sulfa (Sulfonamide Allergy Unknown Unknown Verified 05/31/19 21:23 Antibiotics) sulfamethoxazole Allergy Unknown Unknown Verified 05/31/19 21:23 trimethoprim Allergy Unknown Unknown Verified 05/31/19 21:23 Home Medications Home Medications Medication Instructions Recorded Confirmed Type albuterol sulfate [Ventolin HFA] 2 puff INHALATION QID PRN 06/17/18 05/31/19 History ibuprofen [IBU] 600 mg PO TID PRN 06/17/18 05/31/19 History clindamycin HCl 300 mg PO Q8H 30 Days #90 cap 06/03/19 Rx insulin NPH and regular human 20 unit SC QDD #10 ml 06/03/19 Rx [Novolin 70/30 U-100 Insulin] insulin NPH and regular human 40 units SC QDB #10 ml 06/03/19 Rx [Novolin 70/30 U-100 Insulin] pen needle, diabetic [ReliOn #100 ea 06/03/19 Rx [place]] Patient History Medical History Skin ulcer (Acute) MRSA (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 (Acute) Discharge planning issues (Acute) DVT prophylaxis (Acute) Diabetes mellitus with hyperosmolarity without hyperglycemic hyperosmolar nonketotic coma (Acute) Depression (Chronic) Bipolar I disorder (Chronic) Diabetes mellitus, type II (Chronic) Tobacco use disorder (Chronic) ADD (attention deficit disorder) (Chronic) Asthma, exercise induced (Chronic) Morbid obesity (Chronic) Surgical History S/P appendectomy (Chronic) Family History Mother Hypertension Father Coronary heart disease Diabetes Brother Diabetes Social History Preferred Language: Mohawk Communication Ability: Effective Visual Impairment: No Limitations Hearing Ability: Normal 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 Required: No Beliefs That Will Affect Care: None Current Living Situation: Family Feels Safe at Home: Yes Smoking Status: Never smoker Second Hand Exposure: No ; Hx Alcohol Use: No Hx Substance Use: No Review of Systems Review of Systems: All systems reviewed & are unremarkable except as noted in HPI & below Physical Exam Constitutional: WD/WN, vitals as above + obese and comfortable; no acute distress Eyes: PERRL, conjunctivae normal, anicteric sclerae ENMT: external ear and nose normal, oropharynx normal Neck: trachea midline, no thyromegaly neck nontender Respiratory: normal respiratory effort, lungs clear to auscultation normal percussion; does not use accessory muscles Cardiovascular: Rate/Rhythm: regular rate and regular rhythm Heart Sounds: normal S1 and normal S2; no gallop, no murmur and no cardiac rub Vessels: normal peripheral pulses; no JVD Gastrointestinal (Abdomen): normal bowel sounds, soft, nontender, no hepatosplenomegaly Musculoskeletal: no cyanosis or clubbing, extremities motor strength 5/5 Spine: thoracic spine normal to inspection and lumbar spine normal to inspection; no cervical spinal tenderness Skin: no rashes, warm and dry normal turgor and + wound (Small lower abdominal wound with minimal surrounding erythema, no purulence) Neurologic: patellar DTR's 2+ bilat, sensation intact no focal motor deficits Psychiatric: A+Ox3, euthymic affect Orientation: cooperative Lymphatic: no cervical or axillary lymphadenopathy no inguinal lymphadenopathy Results & Data Vital Signs (Past 12 Hours) Vital Signs Temp Pulse Resp BP Pulse Ox 06/03/19 08:00 36.6 C 72 18 109/73 99 Laboratory Results Short CBC 06/03/19 Range/Units 05:25 WBC 6.62 (4.8-10.8) K/uL Hgb 14.4 (14.0-18.0) g/dL Hct 41.8 L (42-52) % Plt Count 188 (130-400) K/uL BMP 06/03/19 05:25 Sodium 139 Potassium 3.5 Chloride 107 Carbon Dioxide 24 BUN 10 Creatinine 0.57 L Glucose 215 H Calcium 8.2 L Diagnostic Findings Microbiology 06/01/19 06:20 Abdomen, Left Lower Quadrant Gram Stain - Final 06/01/19 06:20 Abdomen, Left Lower Quadrant Wound Culture - Preliminary Staph aureus MRSA Group B Beta Strep Staph aureus MRSA#2 05/31/19 21:13 Blood Aerobic Blood Culture - Preliminary No growth in Aerobic bottle after 48 hours. 05/31/19 21:13 Blood Anaerobic Blood Culture - Preliminary No growth in Anaerobic bottle after 48 hours. 05/31/19 21:03 Blood Aerobic Blood Culture - Preliminary No growth in Aerobic bottle after 48 hours. 05/31/19 21:03 Blood Anaerobic Blood Culture - Preliminary No growth in Anaerobic bottle after 48 hours. Ordering Phy: Alvaro Taylor M.D. cc: ~ XR chest 1V portable CLINICAL HISTORY: 34 years-old Male presenting with weakness. TECHNIQUE: PA and lateral views of the chest were obtained. COMPARISON: 01/31/2019. FINDINGS: Cardiac silhouette mildly enlarged. No focal opacity. No large effusion or pneumothorax. Osseous structures normal. Upper abdomen normal. IMPRESSION: 1. Mild cardiomegaly. No other convincing evidence of acute cardiopulmonary disease. Electronically signed by: Jim Rodriguez M.D. 05/31/2019 9:13 PM Dictated: 05/31/192111 Transcribed: 05/31/192111 PG Care Time/CCT Total # of Minutes Spent Total Time Spent with Patient: Total time spent is greater than 50% in coordination of care (as documented) at patient's floor/unit and/or counseling patient: (1) Chronic abdominal wound infection Encounter type: initial encounter Qualified Code(s): S31.109A - Unspecified open wound of abdominal wall, unspecified quadrant without penetration into peritoneal cavity, initial encounter; L08.9 - Local infection of the skin and subcutaneous tissue, unspecified
--- NOTE | 2019-06-03 13:42 | Discharge Summary ---
Date of Service June 03, 2019 Admission HPI Per Admitting Provider History obtained from patient, family, and records. Medical history significant for DM 2, insulin requiring, hypertension, mood disorder, ongoing tobacco abuse, chronic abdominal wall wound, history of MRSA as per records. Recent confinement August 2018 for [facility]. Last month, patient ran out of insulin secondary to insurance issues. The last few weeks, blood sugars at home noted to be 300s and even undetectable. Patient thirsty and peeing a lot. Patient had burning chest pain right reflux after consuming pizza few hours ago. No shortness of breath, cough symptoms productive of clear sputum. Chronic headache symptoms attributed to sinus congestion as per patient. Patient also complaining of bilateral lower extremity aches for weeks now. At the ER, IV insulin started for BSG in the 800s. Chest pain relieved by Famotidine administration. Medical History as above TTE 2018 showed grossly normal LV systolic function. Grossly normal cardiac valves. Right heart not well visualized. 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 Admission Exam Per Admitting Provider GENERAL: Comfortable, obese, unkempt, no respiratory distress SKIN: Normal color, warm HEENT: [place] palpebral conjunctivae, no ptosis, dry buccal mucosa NECK : Supple, short neck, no tenderness CHEST : CTA, no tenderness HEART : RRR, no obvious murmurs ABDOMEN: Chronic wound lower anterior abdominal wall with scant foul-smelling drainage, some distention, nontender EXTREMITIES : bilateral LE swelling, no LE tenderness, no other conspicuous deformities noted NEUROLOGIC : Coherent, no facial asymmetry, no other gross focality Principal Diagnosis Uncontrolled DMII Morbid Obesity Abdominal wound MRSA Carrier Discharge Data Allergies Allergy/AdvReac Type Severity Reaction Status Date / Time aspirin Allergy Unknown Unknown Verified 05/31/19 21:23 Bactrim Allergy Unknown . Verified 02/01/18 00:10 Cephalosporins Allergy Unknown Unknown Verified 05/31/19 21:23 Penicillins Allergy Unknown Unknown Verified 05/31/19 21:23 Sulfa (Sulfonamide Allergy Unknown Unknown Verified 05/31/19 21:23 Antibiotics) sulfamethoxazole Allergy Unknown Unknown Verified 05/31/19 21:23 trimethoprim Allergy Unknown Unknown Verified 05/31/19 21:23 Consultations 05/31/19 21:47 ED Decision to Admit Stat 06/01/19 00:38 Consult Case Management - Discharge Planning Routine 06/01/19 06:39 Consult Wound Care Provider Routine 06/02/19 16:45 Consult Infectious Diseases Routine Ordered Studies 06/01/19 05:[address] [facility] Urgent Hospital Course (1) Uncontrolled diabetes mellitus: (2) Dehydration: (3) Skin ulcer: (4) MRSA (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: (5) Morbid obesity: (6) Tobacco use disorder: 34-year-old uncontrolled diabetic presented with hyperglycemia to the ER. He reported noncompliance with insulin and metformin secondary to recent loss of insurance proximally 1 month prior. He noted severe dehydration and over the last few weeks with increased thirst and polyuria, which continued to get worse. He did have some mild chest pain at one time after eating a high fat meal but this was relieved with IV fluid administration and did not return. Serial troponin enzymes were negative and two EKGs were performed during this admission revealing no evidence of acute ischemia consistently. There were no events on telemetry during his hospitalization. He was admitted to the Hospitalist service and placed on IV insulin overlapping with basal subcutaneous insulin. A hemoglobin A1c was performed and was 13.2, up from last year 9.4. IV fluids were stopped the following day and he continue to eat and drink to thirst, doing well now that he was on insulin again. As he had had some GI discomfort with intermediate release metformin in the past, the decision was made to use insulin as monotherapy in the setting of limited financial resources and an elevated A1C>13. With the help of the glycemic pharmacist and diabetic nurse educator we decided on 70/30 twice daily insulin. Additionally, the patient had a chronic abdominal wound. A superficial wound culture was performed during this admission revealing evidence of MRSA and group B beta strep. Doxycycline was initially started, however after the culture results returned, the patient was switched to clindamycin. He was discharged on 4 weeks of clindamycin per Infectious Disease recommendations with close infectious dise ase/wound care follow-up to determine ultimate antibiotic course as needed. Unfortunately, the patient has no current health insurance and will be following up with [facility]. He remained clinically stable and doing well for the next couple of days. At time of discharge a [id number] examination was performed revealing a hemodynamically stable and afebrile patient who was mentating and ambulating at baseline. Physical exam revealed morbid obesity with a persistent abdominal wound that did not appear superficially infected and did not have drainage present. There was no surrounding erythema to this wound or evidence of cellulitis. Heart and lung exam was normal. He was discharged in stable condition with close primary care follow-up recommended. After discharge 1 of 4 blood culture bottles came positive for bacillus species, not anthracis. The patient was notified and was clinically doing well. This was considered a contaminant and should not require any further work-up. The patient was advised to seek immediate medical attention if he spiked a fever or develop symptoms that were concerning to him. Total Time Total Time Spent Total Time Spent (In Minutes): 60 Total Time Includes: Examination of the Patient, Discharge Planning, Medication Reconciliation and Communication With Other Providers Discharge Plan Discharge Items Patient Disposition: Home - Self-Care Reason For Visit: HHS, CP Discharge Diagnosis: abdominal ulcerative wound with superficial infection uncontrolled DMII morbid obesity Condition: Good Discharge Goals: Improve disease control Activity: Resume your previous activity Non-emergency contact: Primary Care Provider Call non-emergency contact if: you have any medication questions, your symptoms worsen, your pain is not controlled, your pain is worsening, your pain is unusual for you, your pain is concerning for you and you have a fever Follow-up/Referrals: [facility] [Provider Group] [facility] [Provider Group] Elliot Benites DO [Primary Care Provider] - Diet: Carb Consistent or DM2 Addtl Provider Instructions: Please take all medications as instructed on discharge list below. METFORMIN is no longer recommended at this time as the extended release version, which you tolerate better, is cost prohibitive and we can control your blood sugar using the new insulin. [facility]) where you can get it at a reduced cost in addition to supplies at a reduced cost as needed. The antibiotic should cost approximately $40 with a drug coupon which you will need to ask the pharmacist about ([email or web address]). They will need to order your insulin syringes, which will be in Tuesday, so please take some syringes home with you that you received here in the meantime. Someone will contact you after the weekend to set up your follow-up appointment at [facility] locally. You will need to monitor your blood sugar every day in the morning before breakfast, and additionally at least one more time randomly during the day. Please keep a written log of the times and sugar numbers and bring this to every doctor visit so they will know how to titrate your insulin dose. You will need a hemoglobin A1C (non-fasting bloodwork) in 3 months to track your progress. Please follow-up with the wound care clinic and infectious diseases as above after completing antibiotic course to monitor the healing progress of your skin ulcer. You have been provided 4 weeks of antibiotics, but you may need more depending on how your wound healing is progressing. If you develop diarrhea or abdominal pain while taking this medication, please seek medical attention. It is strongly recommended that you work on ways of modifying your diet in order to lose weight. The reduction in body fat that results will greatly improve your blood sugar numbers. It was a pleasure taking care of you! Please call if you have any questions or problems. You can reach a [facility] hospitalist on duty at [facility] 24 hours a day by calling [phone]. Take care of yourself. Karlee Nix, DO [facility] Hospitalist Prescriptions: New Novolin 70/30 U-100 Insulin 100 unit/mL (70-30) Suspension 20 unit SC QDD Qty: 10 RF: 1 Novolin 70/30 U-100 Insulin 100 unit/mL (70-30) Suspension 40 units SC QDB Qty: 10 RF: 1 clindamycin HCl 300 mg capsule 300 mg PO Q8H 30 Days Qty: 90 RF: 0 pen needle, diabetic [ReliOn [place]over] 31 gauge x 1/4" needle .ROUTE .MEDSUPPLY Qty: 100 RF: 3 Continued ibuprofen [IBU] 600 mg tablet 600 mg PO TID PRN (Reason: Pain) RF: 0 albuterol sulfate [Ventolin HFA] 90 mcg/actuation Hfa Aerosol Inhaler 2 puff INHALATION QID PRN (Reason: Shortness Of Breath Or Wheezing) RF: 0 Discontinued metformin 500 mg tablet extended release 24 hr 1,000 mg PO DAILY RF: 0 Basaglar KwikPen U-100 Insulin 100 unit/mL (3 mL) Insulin Pen 20 unit SUBCUT DAILY RF: 0 Stand-Alone Forms: My [facility] Discharge Orders: Discharge Order (Routine); Ordered 06/03/19 Ordered By: Karlee Nix Admission Data Admit Date/Time: 05/31/19 23:21 Attending Provider: Karlee Nix Admit Provider: Odilon Juarez Primary Care Provider: Elliot Benites Other Providers: Odilon Juarez ; Jose Alejandro Cardenas ; Helen Ramos ; Larry Hernandez ; Emy Coughlin ; Bashir Thao ; Renée Osman Service: Medical Other Interventions: Discharge Summary Assessment (RN) Last Done: 06/03/19 14:42 DC Date/Time DO NOT enter until pt leaves facility: 06/03/19 15:45
== END 2019-06-03 15:45 | disposition home or self-care (01) | DRG 638 ==
LOC: ED 20:33 → SUATTDRO 23:21 → 2E 23:21 → 4W 06-01 15:39

== ENCOUNTER 2020-11-06 18:45 | Inpatient (IN) ==
[~2020-11-06 18:45] MED LIST changes: +KETAMINE HCL INJ 50 MG/ML 10 ML VIAL IV ONE; -METF500T PO; +ROCURONIUM BROMIDE 10 MG/ML 10 ML VIAL IV ONE; +SODIUM CHLORIDE 0.9% INJ 10 ML VIAL IV ONE; +VECURONIUM BROMIDE 10 MG VIAL IV ONE; -VNTHFA/IN INH; +fentaNYL citrate 100 MCG/2 ML VIAL IV ONE
[2020-11-06] MEDS ORDERED: CHLORASEPTIC 1.4% SOLN 180 ML BTL MT STA (19:09)
--- NOTE | 2020-11-06 19:21 | Emergency Department Note ---
History of Present Illness General Chief complaint: Ear Pain/Problem Stated complaint: EAR PAIN IN BOTH EAR'S, SORE THROAT Time Seen by Provider: 11/06/20 18:58 History of Present Illness Maximum Pain Intensity: 10 This is a 35-year-old male that presents to the emergency department via private vehicle with complaints "pain in both ears, sore throat". The patient notes that beginning this past Tuesday he noted a sore throat, ear pain, cough. He notes pain with attempting to swallow. Current pain 10/10. He denies any drooling. He notes that he has been utilizing the previously prescribed medication from his recent ED visit. He denies any relief with these medications. He notes worsening of symptoms. He notes that he cannot eat or drink secondary to the discomfort. He has never had this before. He denies any fevers. Home Medications Medication Instructions Recorded Confirmed Type insulin glargine [Lantus Solostar 50 unit SUBCUT BID 11/05/20 11/06/20 History U-100 Insulin] nystatin 5 ml PO QID 10 Days #200 ml 11/05/20 11/06/20 Rx cyclobenzaprine 5 mg PO TID PRN 11/06/20 11/06/20 History famotidine 20 mg PO BID 11/06/20 11/06/20 History Allergies Allergy/AdvReac Type Severity Reaction Status Date / Time aspirin Allergy Unknown Unknown Verified 11/05/20 05:33 Bactrim Allergy Unknown . Verified 02/01/18 00:10 Cephalosporins Allergy Unknown Unknown Verified 11/05/20 05:33 Penicillins Allergy Unknown Unknown Verified 11/05/20 05:33 Sulfa (Sulfonamide Allergy Unknown Unknown Verified 11/05/20 05:33 Antibiotics) sulfamethoxazole Allergy Unknown Unknown Verified 11/05/20 05:33 trimethoprim Allergy Unknown Unknown Verified 11/05/20 05:33 Past Med/Surg History Medical History (Updated 11/07/20 @ 01:28 by Kelvin Swenson PA-C) ADD (attention deficit disorder) Asthma, exercise induced Bipolar I disorder Depression Diabetes mellitus with hyperosmolarity without hyperglycemic hyperosmolar nonketotic coma Diabetes mellitus, type II Discharge planning issues DVT prophylaxis Morbid obesity MRSA (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 Skin ulcer Tobacco use disorder Surgical History S/P appendectomy Family History Mother Hypertension Father Coronary heart disease Diabetes Brother Diabetes Social History Smoking Status: Unknown if ever smoked Second Hand Exposure: No; Preferred Language: Syriac Communication Ability: Effective Communication Ability Comment: patient intubated Visual Impairment: No Limitations Hearing Ability: Normal Product Director Required: No Beliefs That Will Affect Care: None Current Living Situation: Family Current Living Situation Comment: unable to obtain Feels Safe at Home: Yes Assistive Devices: None Assistive Devices Comment: unknown Review of Systems A total of 10 systems reviewed and were otherwise negative Physical Exam Vital Signs Vital Signs - 24 hr 11/06/20 18:54 11/06/20 20:50 11/06/20 22:08 Temperature 36.7 C Temperature Source Temporal Artery Scan Pulse Rate 101 H 113 H Pulse Rate [Finger] 100 H Pulse Rate from SpO2 Sensor Respiratory Rate 20 18 22 Respiratory Effort / Characteristics Non-Labored Non-Labored Spontaneous Respiratory Depth Normal Normal Blood Pressure 157/99 H Blood Pressure Mean 118 Pulse Oximetry 96 94 95 Oxygen Delivery Method Room Air Room Air Fraction of Inspired Oxygen 50 Sepsis Recent Fever Within 48 Hours No Sepsis New/Unexplained Change in Mental Status N/A Sepsis Action Taken by Nursing No Action Required End-Tidal CO2 43 11/06/20 22:16 11/06/20 22:20 11/06/20 22:30 Temperature Temperature Source Pulse Rate 108 H 112 H 114 H Pulse Rate [Finger] Pulse Rate from SpO2 Sensor Respiratory Rate 20 16 21 Respiratory Effort / Characteristics Respiratory Depth Blood Pressure 123/84 Blood Pressure Mean 97 Pulse Oximetry 100 100 99 Oxygen Delivery Method Fraction of Inspired Oxygen Sepsis Recent Fever Within 48 Hours Sepsis New/Unexplained Change in Mental Status Sepsis Action Taken by Nursing End-Tidal CO2 11/06/20 22:34 11/06/20 22:37 11/06/20 22:38 Temperature Temperature Source Pulse Rate 115 H 129 H 136 H Pulse Rate [Finger] Pulse Rate from SpO2 Sensor Respiratory Rate 14 35 H 24 Respiratory Effort / Characteristics Respiratory Depth Blood Pressure 167/98 H 175/121 H Blood Pressure Mean 121 139 Pulse Oximetry 91 100 98 Oxygen Delivery Method Mechanical Vent Fraction of Inspired Oxygen 50 Sepsis Recent Fever Within 48 Hours Sepsis New/Unexplained Change in Mental Status Sepsis Action Taken by Nursing End-Tidal CO2 11/06/20 22:44 11/06/20 22:45 11/06/20 22:47 Temperature Temperature Source Pulse Rate 138 H 135 H 120 H Pulse Rate [Finger] Pulse Rate from SpO2 Sensor Respiratory Rate 18 18 18 Respiratory Effort / Characteristics Respiratory Depth Blood Pressure 191/122 H 163/93 H Blood Pressure Mean 145 116 Pulse Oximetry 95 94 95 Oxygen Delivery Method Mechanical Vent Mechanical Vent Mechanical Vent Fraction of Inspired Oxygen 50 50 50 Sepsis Recent Fever Within 48 Hours Sepsis New/Unexplained Change in Mental Status Sepsis Action Taken by Nursing End-Tidal CO2 11/06/20 22:48 11/06/20 22:50 11/06/20 22:52 Temperature Temperature Source Pulse Rate 117 H 115 H 114 H Pulse Rate [Finger] Pulse Rate from SpO2 Sensor 118 H 115 H 114 H Respiratory Rate 18 18 Respiratory Effort / Characteristics Respiratory Depth Blood Pressure 149/76 H 132/73 132/71 Blood Pressure Mean 100 92 91 Pulse Oximetry 94 94 94 Oxygen Delivery Method Fraction of Inspired Oxygen Sepsis Recent Fever Within 48 Hours Sepsis New/Unexplained Change in Mental Status Sepsis Action Taken by Nursing End-Tidal CO2 11/06/20 22:54 11/06/20 22:56 11/06/20 22:58 Temperature Temperature Source Pulse Rate 112 H 121 H 119 H Pulse Rate [Finger] Pulse Rate from SpO2 Sensor 112 H 121 H 118 H Respiratory Rate Respiratory Effort / Characteristics Respiratory Depth Blood Pressure 128/67 147/88 H 135/84 Blood Pressure Mean 87 107 101 Pulse Oximetry 94 94 93 Oxygen Delivery Method Fraction of Inspired Oxygen Sepsis Recent Fever Within 48 Hours Sepsis New/Unexplained Change in Mental Status Sepsis Action Taken by Nursing End-Tidal CO2 72 45 57 VITAL SIGNS - Vital signs and nursing notes were reviewed. Stable and afebrile. GENERAL -35-year-old male appearing his stated age who is in no acute distress. Communicates well with provider and answers questions appropriately. SKIN - Without rashes. No meningeal or petechial rash. HEAD - NC/AT. EYES - PERRL with EOMI bilaterally. Sclera anicteric. EARS - No deformities of external structures noted on gross examination bilaterally. No erythema to the TMs however there is evidence of a bilateral serous otitis. NOSE - Midline and without cyanosis. No epistaxis or purulent drainage noted. Septum midline without deviation or septal hematoma noted. MOUTH/OROPHARYNX - Without perioral cyanosis. Buccal mucosa pink and moist and without leukoplakia. Visualization of the patient's posterior pharynx is quite difficult even with tongue blade. From what I am able to visualize there is significant edema to the tonsillar region as well as uvula. There is also soft palate involvement. No drooling or trismus. The patient is speaking in full s entences but does have his lower jaw protruding slightly forward. NECK - Neck with FROM. Supple to palpation. Bilateral anterior cervical lymphadenopathy noted. No nuchal rigidity. LUNGS - Chest wall symmetric without accessory muscle use, intercostals retractions, or central cyanosis. Normal vesicular breath sounds CTA B/L. No wheezes, rales, or rhonchi appreciated. CARDIAC - RRR with S1/S2. No murmur, rubs, or gallops appreciated. NEUROLOGIC - Cranial nerves II through XII grossly intact. PSYCH - A&O, and cooperates fully with examiner. Pt is very pleasant and interacts well with examiner. Course Administered Medications Propofol (Diprivan) 1,000 mg in 100 mls @ 36.015 mls/hr IV .Q2H47M [facility]; Protocol Stop: 11/09/20 22:14 Last Titration: 11/06/20 22:48 Dose: 35 mcg/kg/min, 36 mls/hr Documented by: [id number] Admin: 11/06/20 22:41 Dose: 19.92 mcg/kg/min, 20.5 mls/hr Documented by: [id number] Cosigned by: [id number] Fentanyl Citrate (Fentanyl Drip) 1,250 mcg in 250 mls @ 30 mls/hr IV .Q8H20M [facility]; Protocol Stop: 11/20/20 22:29 Last Titration: 11/06/20 22:49 Dose: 150 mcg/hr, 30 mls/hr Documented by: [id number] Cosigned by: [id number] Admin: 11/06/20 22:42 Dose: 25 mcg/hr, 5 mls/hr Documented by: [id number] Cosigned by: [id number] Discontinued Medications Benzocaine/Butamben/Tetracaine HCl (Benzocaine/Tetracain/Butam Can 200 Appln/20 Gm Can) 1 appln EXT ONE ONE Stop: 11/06/20 22:05 Last Admin: 11/06/20 22:23 Dose: 10 appln Documented by: [id number] Benzocaine/Butamben/Tetracaine HCl (Benzocain/Tetraca/Butam [place] 200 Appln/20 Gm [place]) Confirm Administered Dose 1 appln EXT .STK-MED ONE Stop: 11/06/20 22:11 Last Admin: 11/06/20 22:24 Dose: Not Given Documented by: [id number] Dexamethasone (Dexamethasone Sod Inj 10 Mg/Ml Vial) 10 mg IV NOW ONE Stop: 11/06/20 21:04 Last Admin: 11/06/20 21:32 Dose: 10 mg Documented by: [id number] Fentanyl Citrate (Fentanyl Citrate 100 Mcg/2 Ml Vial) Confirm Administered Dose 100 mcg .ROUTE .STK-MED ONE Stop: 11/06/20 22:37 Last Admin: 11/06/20 22:40 Dose: 100 mcg Documented by: [id number] Glycopyrrolate (Glycopyrrolate 0.2 Mg/Ml Vial) 0.2 mg IV NOW STA Stop: 11/06/20 22:17 Last Admin: 11/06/20 22:27 Dose: 0.2 mg Documented by: [id number] Sodium Chloride (Nss 1000ml) 1,000 mls @ 500 mls/hr IV .Q2H DIANE Stop: 11/06/20 23:14 Last Admin: 11/06/20 21:32 Dose: 500 mls/hr Documented by: [id number] Clindamycin Phosphate 900 mg/ (Dextrose) 56 mls @ 112 mls/hr IV ONE ONE Stop: 11/06/20 21:32 Last Infusion: 11/06/20 22:24 Dose: 0 mls/hr Documented by: [id number] Admin: 11/06/20 21:50 Dose: 112 mls/hr Documented by: [id number] Acetaminophen (Ofirmev) 1,000 mg in 100 mls @ 400 mls/hr IV NOW STA Stop: 11/06/20 22:13 Last Admin: 11/06/20 22:51 Dose: Not Given Documented by: [id number] Ioversol (Optiray 320 125ml) 120 ml IV ONCE ONE Stop: 11/06/20 20:22 Last Admin: 11/06/20 20:21 Dose: 120 ml Documented by: [id number] Miscellaneous (Rapid Sequence Induction Bag) Confirm Administered Dose 1 ea .ROUTE .STK-MED ONE Stop: 11/06/20 22:13 Last Admin: 11/06/20 22:23 Dose: 1 ea Documented by: [id number] Phenol (Chloraseptic 1.4% Soln 180 Ml Btl) 1 sprays MT NOW STA Stop: 11/06/20 19:10 Last Admin: 11/06/20 19:46 Dose: 1 sprays Documented by: [id number] Propofol (Propofol Iv Emulsion 10 Mg/Ml 100 Ml Vial) Confirm Administered Dose 1,000 mg IV .STK-MED ONE Stop: 11/06/20 22:17 Last Admin: 11/06/20 22:39 Dose: Not Given Documented by: [id number] Critical Care Time Total Critical Care Time: 46 Patient presents sore throat, muffled voice and found to have significant narrowing of the posterior oropharynx with concern of impending airway issue. I have personally spent about 46 minutes of critical care time in the direct management of this patient. This includes bedside care, interpretation of diagnostic studies, and testing, discussion with consultants, patient, and other required patient management activities. This 46 minutes is in excess of all separately billable procedures. Medical Decision Making Laboratory Data Result diagrams: 11/06/20 19:30 11/06/20 19:30 Lab Results 11/06/20 11/06/20 11/06/20 Range/Units 19:07 19:30 19:30 WBC 14.81 H (4.8-10.8) K/uL RBC 5.16 (4.7-6.1) M/uL Hgb 14.7 (14.0-18.0) g/dL Hct 43.4 (42-52) % MCV 84.1 (80-100) fL MCH 28.5 (25-34) pg MCHC 33.9 (32-36) g/dL RDW Std Deviation 42.4 (36.4-46.3) fL RDW Coeff of Black 13.7 (11.5-14.5) % Plt Count 265 (130-400) K/uL MPV 9.8 (7.4-10.4) fL Immature Gran % (Auto) 0.3 % Neut % (Auto) 76.4 % Lymph % (Auto) 13.2 % [facility] % (Auto) 7.7 % Eos % (Auto) 2.2 % Baso % (Auto) 0.2 % Neut # (Auto) 11.30 H (1.4-6.5) K/uL Lymph # (Auto) 1.96 (1.2-3.4) K/uL [facility] # (Auto) 1.14 H (0.11-0.59) K/uL Eos # (Auto) 0.33 (0-0.5) K/uL Baso # (Auto) 0.03 (0-0.2) K/uL Immature Gran # (Auto) 0.05 H (0.00-0.02) K/uL Sodium 140 (136-145) mmol/L Potassium 3.8 (3.5-5.1) mmol/L Chloride 105 (98-107) mmol/L Carbon Dioxide 27 (21-32) mmol/L Anion Gap 8.0 (3-11) BUN 7 (7-18) mg/dl Creatinine 0.79 (0.6-1.4) mg/dl Est Cr Clr Drug Dosing Not Reportable Est GFR ( Amer) 133.0 Est GFR (Non-Af Amer) 114.7 BUN/Creatinine Ratio 8.4 L (10-20) Glucose 127 H (70-99) mg/dl Calcium 9.3 (8.5-10.1) mg/dl Total Bilirubin 0.6 (0.2-1) mg/dl AST 12 L (15-37) U/L ALT 30 (12-78) U/L Alkaline Phosphatase 94 (45-117) U/L Total Protein 8.0 (6.4-8.2) gm/dl Albumin 2.9 L (3.4-5.0) gm/dl Globulin 5.1 H (2.5-4.0) gm/dl Albumin/Globulin Ratio 0.6 L (0.9-2) COVID-19 Eval Order Monoscreen (Negative) SARS-CoV-2, RNA, NAAT (NEGATIVE) Group A Strep (PCR) DETECTED A (NotDetected) 11/06/20 11/06/20 11/06/20 Range/Units 21:30 21:30 21:52 WBC (4.8-10.8) K/uL RBC (4.7-6.1) M/uL Hgb (14.0-18.0) g/dL Hct (42-52) % MCV (80-100) fL MCH (25-34) pg MCHC (32-36) g/dL RDW Std Deviation (36.4-46.3) fL RDW Coeff of Black (11.5-14.5) % Plt Count (130-400) K/uL MPV (7.4-10.4) fL Immature Gran % (Auto) % Neut % (Auto) % Lymph % (Auto) % [facility] % (Auto) % Eos % (Auto) % Baso % (Auto) % Neut # (Auto) (1.4-6.5) K/uL Lymph # (Auto) (1.2-3.4) K/uL [facility] # (Auto) (0.11-0.59) K/uL Eos # (Auto) (0-0.5) K/uL Baso # (Auto) (0-0.2) K/uL Immature Gran # (Auto) (0.00-0.02) K/uL Sodium (136-145) mmol/L Potassium (3.5-5.1) mmol/L Chloride (98-107) mmol/L Carbon Dioxide (21-32) mmol/L Anion Gap (3-11) BUN (7-18) mg/dl Creatinine (0.6-1.4) mg/dl Est Cr Clr Drug Dosing Est GFR ( Amer) Est GFR (Non-Af Amer) BUN/Creatinine Ratio (10-20) Glucose (70-99) mg/dl Calcium (8.5-10.1) mg/dl Total Bilirubin (0.2-1) mg/dl AST (15-37) U/L ALT (12-78) U/L Alkaline Phosphatase (45-117) U/L Total Protein (6.4-8.2) gm/dl Albumin (3.4-5.0) gm/dl Globulin (2.5-4.0) gm/dl Albumin/Globulin Ratio (0.9-2) COVID-19 Eval [facility] Mon[facility] Negative (Negative) SARS-CoV-2, RNA, NAAT NEGATIVE (NEGATIVE) Group A Strep (PCR) (NotDetected) Imaging Data Radiologist's Impression: CT soft tissue neck w con HISTORY: muffled voice, throat pain TECHNIQUE: Multiaxial CT images of the neck were performed following the intravenous administration of 120 cc of Optiray 320. COMPARISON STUDY: None. FINDINGS: The visualized brain parenchyma and orbits are unremarkable. The prevertebral soft tissues and epiglottis are normal in thickness. The parotid and submandibular glands are symmetric. Bilateral upper cervical lymphadenopathy. This is likely reactive. The thyroid gland enhances normally. There is mild motion artifact. No pneumothorax. The lung apices are clear. No suspicious lytic or blastic osseous lesions. The paranasal sinuses and mastoid air cells are clear. The major cervical vessels enhance normally. There is diffuse soft tissue thickening/edema within the oropharynx which includes thickening of the uvula and bilateral palatine tonsils. The bilateral palatine tonsils are enlarged and abut at the midline resulting in severe airway narrow ing at the posterior oropharynx. The right palatine tonsil is edematous. There is a ring-enhancing low density collection within the left palatine tonsil best seen on image 144. This measures 2.0 x 1.6 cm. This is consistent with a peritonsillar abscess. Right peritonsillar hypodensity does not demonstrate a peripheral enhancing wall at this time. Therefore, this favors a phlegmon versus a developing right peritonsillar abscess. IMPRESSION: 1. Enlarged and heterogeneous bilateral palatine tonsils and uvula resulting in severe narrowing of the posterior oropharynx. Clinical correlation recommended to evaluate for severe airway compromise. 2. There is a 2.2 x 1.6 cm left peritonsillar abscess. Hypodensity adjacent to the right tonsil does not demonstrate a peripheral enhancing wall at this time. Therefore, this favors a phlegmon versus a developing right peritonsillar abscess. 3. Bilateral upper cervical lymphadenopathy. This is likely reactive to the suspected tonsillitis. ACT 112: Negative or not required by law. Electronically signed by: aDvid Herring M.D. 11/06/2020 8:52 PM [facility] Narrative Patient was seen and evaluated as above in room C 12. Review was performed of nursing notes and vital signs. I did review pertinent previous visits and patient history. After obtaining a thorough history and physical examination the above work up was performed. Patient presents to us today with a sore throat and ear pain. On examination the patient does have a muffled/hot potato-like voice. No drooling or trismus. Complete visualization of the posterior pharynx is quite difficult noting body habitus as well as tongue. Given this presentation was felt that further work-up was warranted. IV access was established. Labs were drawn. Decision was made to obtain a CT scan of the neck soft tissue with contrast given presentation and exam. Laboratory studies reveal leukocytosis 14.81 without significant anemia. No em ergent metabolic disturbance. Strep testing is positive. Covid testing is negative. CT scan results as above. Patient does have enlarged and heterogeneous bilateral palate team tonsils and uvula resulting in severe narrowing of the posterior oropharynx. Radiologist does comment clinical correlation recommended to evaluate for severe airway compromise. They also note a left peritonsillar abscess and what appears to be a developing right peritonsillar abscess. This was discussed with the attending physician. Although the patient is time clinically appears okay and is maintaining his airw ay I did find it reasonable to discuss this with ENT. I started the patient here on IV steroids and IV clindamycin. IV fluids were also ordered. In regard to ENT, I spoke to Sonja Lopez PA-C. We discussed the case. We discussed options of care. In talking with the attending physician Dr. Bae, it was requested to have the patient evaluated by ENT here in the ED tonight as it was felt that this was in the patient's best interest. DAVID Lopez noted that she would discuss this with her attending physician and the attending would call here to the ED to discuss. Dr. Carreon called and spoke to Dr. Bae, ED attending physician. Please refer to his note regarding this conversation and subsequent consult he placed with no experience, Dr. Fernando. Patient will be admitted to the ICU. I discussed this with the medicine service, Dr. Oakes. Please refer to further documentation regarding his stay. In the evaluation and treatment of this patient the following differential diagnoses were entertained: Strep pharyngitis, viral pharyngitis, allergic rhinitis with post nasal drip, airway obstruction, head/neck neoplasias, GERD, peritonisllar abscess, epiglottitis, ifun-ndlk-alh-mouth disease, herpes simplex, mononucleosis, pneumonia, retropharyngeal abscess, scarlet fever, among others. Impression & Plan Acute streptococcal tonsillitis, Peritonsillar abscess, Compromised airway Discharge Plan Visit Data Chief Complaint: Ear Pain/Problem Stated Complaint: EAR PAIN IN BOTH EAR'S, SORE THROAT ED Provider: Sundar Bae ED Midlevel Provider: Kelvin Swenson Discharge Problem: Acute streptococcal tonsillitis, Peritonsillar abscess, Compromised airway Patient Disposition: Admitted As Inpatient Condition: Good Discharge Instructions Interventions: ED Discharge Assessment Last Done: 11/06/20 23:20
[2020-11-06 19:44] LABS: Basophils # (auto) 0.03 K/uL (0-0.2); Basophils % (auto) 0.2 %; Eosinophils # (auto) 0.33 K/uL (0-0.5); Eosinophils % (auto) 2.2 %; Hematocrit (blood only) 43.4 % (42-52); Hemoglobin 14.7 g/dL (14.0-18.0); Immature Granulocytes # (auto) 0.05 K/uL (0.00-0.02); Immature Granulocytes % (auto) 0.3 %; Lymphocytes # (auto) 1.96 K/uL (1.2-3.4); Lymphocytes % (auto) 13.2 %; Mean Corpuscular Hemoglobin 28.5 pg (25-34); Mean Corpuscular Hgb Conc 33.9 g/dL (32-36); Mean Corpuscular Volume 84.1 fL (80-100); Mean Platelet Volume 9.8 fL (7.4-10.4); Monocytes # (auto) 1.14 K/uL (0.11-0.59); Monocytes % (auto) 7.7 %; Neutrophils % (auto) 76.4 %; Platelet Count 265 K/uL (130-400); RDW Coefficient of Variation 13.7 % (11.5-14.5); RDW Standard Deviation 42.4 fL (36.4-46.3); Red Blood Count 5.16 M/uL (4.7-6.1); White Blood Count 14.81 K/uL (4.8-10.8)
[2020-11-06 20:01] LABS: Alanine Aminotransferase 30 U/L (12-78); Albumin Level 2.9 gm/dl (3.4-5.0); Aspartate Aminotransferase 12 U/L (15-37); BUN Creatinine Ratio 8.4 (10-20); Blood Urea Nitrogen 7 mg/dl (7-18); Calcium 9.3 mg/dl (8.5-10.1); Carbon Dioxide 27 mmol/L (21-32); Chloride 105 mmol/L (98-107); Est GFR (Non-African American) 114.7; Glucose 127 mg/dl (70-99); Potassium 3.8 mmol/L (3.5-5.1); Sodium 140 mmol/L (136-145)
[2020-11-06 20:04] LABS: Albumin Globulin Ratio 0.6 (0.9-2); Alkaline Phosphatase 94 U/L (45-117); Bilirubin,Total 0.6 mg/dl (0.2-1); Globulin 5.1 gm/dl (2.5-4.0)
[2020-11-06] MEDS ORDERED: OPTIRAY 320 125ml IV ONE (20:21)
--- NOTE | 2020-11-06 20:53 | CT Scan Report ---
CT soft tissue neck w con HISTORY: muffled voice, throat pain TECHNIQUE: Multiaxial CT images of the neck were performed following the intravenous administration o f 120 cc of Optiray 320. COMPARISON STUDY: None. FINDINGS: The visualized brain parenchyma and orbits are unremarkable. The prevertebral soft tissues and epiglottis are normal in thickness. The parotid and submandibular glands are symmetric. Bilateral upper cervical lymphadenopathy. This is likely reactive. The thyroid gland enhances normally. There is mild motion artifact. No pneumothorax. The lung apices are clear. No suspicious lytic or blastic o sseous lesions. The paranasal sinuses and mastoid air cells are clear. The major cervical vessels enh ance normally. There is diffuse soft tissue thickening/edema within the oropharynx which includes thi ckening of the uvula and bilateral palatine tonsils. The bilateral palatine tonsils are enlarged and abut at the midline resulting in severe airway narrowing at the posterior oropharynx. The right palat ine tonsil is edematous. There is a ring-enhancing low density collection within the left palatine to nsil best seen on image 144. This measures 2.0 x 1.6 cm. This is consistent with a peritonsillar absc ess. Right peritonsillar hypodensity does not demonstrate a peripheral enhancing wall at this time. T herefore, this favors a phlegmon versus a developing right peritonsillar abscess. IMPRESSION: 1. Enlarged and heterogeneous bilateral palatine tonsils and uvula resulting in severe narrowing of t he posterior oropharynx. Clinical correlation recommended to evaluate for severe airway compromise. 2. There is a 2.2 x 1.6 cm left peritonsillar abscess. Hypodensity adjacent to the right tonsil does not demonstrate a peripheral enhancing wall at this time. Therefore, this favors a phlegmon versus a developing right peritonsillar abscess. 3. Bilateral upper cervical lymphadenopathy. This is likely reactive to the suspected tonsillitis. ACT 112: Negative or not required by law. Electronically signed by: David Herring M.D. 11/06/2020 8:52 PM
[2020-11-06] MEDS ORDERED: DEXAMETHASONE SOD INJ 10 MG/ML VIAL IV ONE (21:03)
[2020-11-06] MEDS ORDERED: CLINDAMYCIN 900 MG in DEXTROSE 5% 50 ML IV ONE (21:03)
[2020-11-06] MEDS ORDERED: SODIUM CHLORIDE 0.9% 1000ML 1,000 ML IV SCH (21:15)
[2020-11-06] MEDS ORDERED: ACETAMINOPHEN 1,000 MG/100 ML VIAL IV STA (21:59)
[2020-11-06] MEDS ORDERED: BENZOCAINE/TETRACAIN/BUTAM CAN 200 APPLN/20 GM CAN EXT ONE (22:04)
[2020-11-06] MEDS ORDERED: BENZOCAIN/TETRACA/BUTAM SPRAY 200 APPLN/20 GM SPRY EXT ONE (22:10)
[2020-11-06] MEDS ORDERED: CANNULA ONE (22:11)
[2020-11-06] MEDS ORDERED: RAPID SEQUENCE INDUCTION BAG ONE (22:12)
[2020-11-06] MEDS ORDERED: STAT IV Infusion **Titration per Protocol STA (22:12)
[2020-11-06] MEDS ORDERED: PROPOFOL BOLUS FROM BAG IV PRN (22:12)
[2020-11-06] MEDS ORDERED: GLYCOPYRROLATE 0.2 MG/ML VIAL IV STA (22:16)
[2020-11-06] MEDS ORDERED: PROPOFOL IV EMULSION 10 MG/ML 100 ML VIAL IV ONE (22:16)
[2020-11-06] MEDS ORDERED: fentaNYL citrate 100 MCG/2 ML VIAL ONE (22:36)
[2020-11-06] MEDS: propofoL 1,000 MG/100 ML VIAL IV SCH (22:41)
[2020-11-06] MEDS: fentaNYL DRIP 1,250 MCG/250 ML BAG IV SCH (22:42)
--- NOTE | 2020-11-06 22:42 | Critical Care Consultation ---
Date of Consultation November 06, 2020 Assessment & Plan (1) Admitted to intensive care unit: Reason Critically Ill: 35-year-old male with significant airway compromise secondary to peritonsillar abscess requiring emergent endotracheal intubation to secure airway. NEURO - * CAM ICU: NEGATIVE * Sedation: Propofol * Pain: Fentanyl * Maintain RASS -3-4 to prevent disruption of ET Tube. CARDIAC/VASCULAR - * Hypertension: * Hold on p.o. antihypertensives at this time. * Monitor on telemetry. RESPIRATORY - * Airway compromise: * Secondary to peritonsillar abscess. * Patient is likely difficult airway baseline secondary to body habitus and anatomy. * Patient with hot potato voice and uncomfortable appearing. * Awake emergent intubation performed by my attending physician. Please see separate note. * Will consult ENT. * Will aim to maintain adequate RASS to prevent ET Tube dislodgement. GI/NUTRITION - * NPO * Prophylaxis: Famotidine RENAL/LYTES - * No significant electrolyte derangements. * IVF: Normosol @75mL/hr - * Addison in place - Strict I&Os. ENDO - * EMII * BSGs per unit protocol. ISS --> gtt per unit policy. HEME - * Stable H&H ID - * Peritonsillar Abscess: * Continue IV Clindamycin given allergy to multiple other antibiotics. * Consult ENT for ??source control. LINES/IV ACCESS - * PIVs x2 * Addison * ET Tube DVT PROPHYLAXIS - * Lovenox * SCDs I have personally spent 35 minutes of critical care time in the direct management of this patient. This is a life/limb threatening event. This includes time spent evaluating patient, direct bedside care, chart review, placing orders, interpretation of diagnostic studies, discussion with consultants, patient, and family members, as well as other required patient management activities. This time is exclusive of all separately billable procedures, and teaching time and separate from and in addition to any other critical care service time. Thank you for allowing us to participate in the care of this patient. Please refer to my attending physician's documentation for any further recommendations. (2) Peritonsillar abscess: (3) Compromised airway: (4) Acute streptococcal tonsillitis: (5) Uncontrolled diabetes mellitus: (6) Hyperglycemia: Supervising Physician Co-Signing Physician Notes I have personally evaluated and examined this patient. I agree with assessment and plan of John Payton PA-C. Patient wanted his emergency contact to be his medical decision-maker, I have contacted her and informed her the intubation went well and to anticipate a call from ear nose and throat team in the morning. Patient was at risk for difficult airway given body habitus and morbid obesity along with pre-existing henderson and oropharyngeal pathology. Fiberoptic intubation was successful. He has multiple antibiotic allergies he is already started on clindamycin which we will continue he was given Decadron for swelling. I anticipate ENT will be able to drain the peritonsillar abscess in the morning. My critical care time occurred from [id number] and [id number]. I transition care to [facility] at that time. I have personally spent 35 minutes of critical care time in the direct management of this patient. This is a life/limb threatening event. This includes time spent evaluating patient, direct bedside care, chart review, placing orders, interpretation of diagnostic studies, discussion with consultants, patient, and/or family members regarding treatment decisions, as well as other required patient management activities. This time is exclusive of all separately billable procedures, and teaching time and separate from and in addition to any other critical care service time. History of Present Illness History of Present Illness Patient is a 35-year-old male with a significant past medical history of morbid obesity, diabetes, bipolar disorder, depression who presented to the emergency department with ear pain, sore throat, difficulty swallowing. He was seen in the emergency department on 11/05 with similar symptoms and diagnosed with thrush. He had been utilizing his medications as prescribed. Despite this, his symptoms worsened prompting visit today. Upon evaluation, the patient was noted to have concerns for peritonsillar abscess. CT scan of the soft tissues of the cervical spine were obtained. There was concern for airway compromise on CT fin judie. Case had been ever reviewed with ENT and was there was suggestion for transfer out secondary to extensive nature of abscess with concerns for airway compromise. We were consulted for evaluation for possible need for secure airway secondary to these findings. Patient received clindamycin and Decadron in the emergency department. Upon evaluation in the emergency department, the patient is awake, alert, and oriented. He complains of sore throat and difficulty with swallowing. His voice is muffled. Otherwise, he offers no other complaints at this time. Allergies Allergy/AdvReac Type Severity Reaction Status Date / Time aspirin Allergy Unknown Unknown Verified 11/05/20 05:33 Bactrim Allergy Unknown . Verified 02/01/18 00:10 Cephalosporins Allergy Unknown Unknown Verified 11/05/20 05:33 Penicillins Allergy Unknown Unknown Verified 11/05/20 05:33 Sulfa (Sulfonamide Allergy Unknown Unknown Verified 11/05/20 05:33 Antibiotics) sulfamethoxazole Allergy Unknown Unknown Verified 11/05/20 05:33 trimethoprim Allergy Unknown Unknown Verified 11/05/20 05:33 Home Medications Medication Instructions Recorded Confirmed Type insulin glargine [Lantus Solostar 50 unit SUBCUT BID 11/05/20 11/06/20 History U-100 Insulin] nystatin 5 ml PO QID 10 Days #200 ml 11/05/20 11/06/20 Rx cyclobenzaprine 5 mg PO TID PRN 11/06/20 11/06/20 History famotidine 20 mg PO BID 11/06/20 11/06/20 History Patient History Medical History (Updated 11/07/20 @ 05:39 by Gabriel Payton PA-C) ADD (attention deficit disorder) Asthma, exercise induced Bipolar I disorder Depression Diabetes mellitus with hyperosmolarity without hyperglycemic hyperosmolar nonketotic coma Diabetes mellitus, type II Discharge planning issues DVT prophylaxis Morbid obesity MRSA (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 Skin ulcer Tobacco use disorder Surgical History S/P appendectomy Family History Mother Hypertension Father Coronary heart disease Diabetes Brother Diabetes Social History Smoking Status: Unknown if ever smoked Second Hand Exposure: No; Preferred Language: Bur[place]ian Communication Ability: Effective Communication Ability Comment: patient intubated Visual Impairment: No Limitations Hearing Ability: Normal Gps Navigation Installer Required: No Beliefs That Will Affect Care: None Current Living Situation: Family Current Living Situation Comment: unable to obtain Feels Safe at Home: Yes Assistive Devices: None Assistive Devices Comment: unknown Review of Systems Review of Systems: A complete 10 point review of systems was reviewed with the patient with pertinent positives and negatives as per history of present illness. All else were negative. Physical Exam Physical Exam: VITAL SIGNS - Vital signs and nursing notes were reviewed. GENERAL - Well nourished, well developed 35-year-old male in moderate distress. Muffled voice. SKIN - Without rash. HEAD - NC/AT with no obvious deformities. EYES - PERRL with EOMI bilaterally. Sclera without injection. Palpebral conjunctiva pink and moist. EARS - No deformities of external structures noted on gross examination bilaterally. No pain elicited with palpation of the tragus bilaterally. NOSE - Midline and without cyanosis. No purulent drainage noted. Nasal mucosa without mucus discharge. MOUTH/OROPHARYNX - Without perioral cyanosis. Buccal mucosa pink and moist and without leukoplakia. Tongue midline with significant edema of the palate. unable to appreciate any deeper structures secondary posterior oropharynx swelling. Moderately erythematous. NECK - Neck with FROM. Supple to palpation. No lymphadenopathy noted. No nuchal rigidity. LUNGS - Chest wall symmetric without accessory muscle use, intercostals retractions, or central cyanosis. Normal vesicular breath sounds CTA B/L. No wheezes, rales, or rhonchi appreciated. CARDIAC - RRR with S1/S2. No murmur, rubs, or gallops appreciated. ABDOMEN - Abdominal contour obese without pulsations or visible masses. BS normoactive all four quadrants. No tenderness, palpable masses, hepatosplenomegaly, or ascites noted. Results & Data Results & Data ([facility]) Vital Signs (Past 12 Hours) Vital Signs Temp Pulse Pulse Resp BP Pulse Ox 11/06/20 22:30 114 H 21 99 11/06/20 22:20 112 H 16 100 11/06/20 22:16 108 H 20 123/84 100 11/06/20 22:08 100 H 22 95 11/06/20 18:54 36.7 C 101 H 20 157/99 H 96 Coding Level of Care Code Critical Care 1st 30-74 mins Diagnoses Admitted to intensive care unit Z78.9 Peritonsillar abscess J36 Compromised airway J98.8 Acute streptococcal tonsillitis J03.00 Uncontrolled diabetes mellitus E11.65 Hyperglycemia R73.9 Time Spent (min) 35 Comment Kassie: Daniele Payton: 33
--- NOTE | 2020-11-06 22:50 | Procedure Note ---
Procedure Note Date of Service November 06, 2020 Procedure Date: Noted above Procedure: Endotracheal intubation Pre-procedure Diagnosis: Impending airway obstruction, possibility for difficult airway Post-procedure Diagnosis: same as above Prior to Procedure: Informed Consent: Risks and benefits were discussed with the patient and in formed consent was obtained Attending Staff: Jaylyn Fernando DO The identity of the patient was confirmed and a bedside time out was performed. Description of Procedure: Patient was evaluated and required intubation for impending airway obstruction/compromise. The patient was prepared in the usual fashion. He was premedicated with 0.2 glycopyrrolate 100 mcg fentanyl and 50 mg of ketamine. An additional 100 mcg of fentanyl was given as well as 25 mg of ketamine and adequate disassociative sedation was obtained. Utilizing a fiberoptic bronchoscope a 7.5 tube was introduced through the glottic opening and easily passed into the airway. The tube was secured at 25 cm to the teeth which was approximately 2 cm above the trixie via direct bronchoscopic evaluation. Chest rise was bilateral. Bilateral breath sounds were heard without air sounds in the abdomen. Mist was noted in the endotracheal tube. End-tidal CO2 measurement was positive. Chest x-ray shows proper endotracheal tube placement. Complications: None Findings: Not applicable Specimens: Not applicable Estimated blood loss: Zero Coding CPT Codes Resuscitation - Resuscitation: 95884 Endotracheal Intubation, emergency ([id number]) [facility] Codes (Charges) Resuscitation Resuscitation: 83792 Endotracheal Intubation, emergency
--- NOTE | 2020-11-06 22:53 | Emergency Department Note ---
ED Visit Note This patient comes in with increasing sore throat. He was initially seen by Kelvin Mo PA-C. She started the work-up and had me come see the patient. I was concerned because he has a very muffled voice and he is obese with diabetes. His CAT scan shows peritonsillar abscess on the right with a possible developing one on the left as well. He has edema with this. I did call and talk to Dr. Banda from ENT who had recommended transfer however I do not feel the patient is likely stable enough and feel would be a risk for transfer. I ta lked to Dr. Fernando from the ICU came and saw the patient. He has evaluated the patient and did opt to fiberoptically intubate him awake. I agree with this as if the patient got acutely worse he would be a difficult emergent intubation. The intubation went well without any difficulties or complications the patient will be admitted the ICU. .
[2020-11-06] MEDS ORDERED: ICU PROTOCOL FOR HYPERGLYCEMIA PRN (23:35)
[2020-11-07] MEDS ORDERED: ICU PROTOCOL FOR HYPERGLYCEMIA PRN (00:39)
[2020-11-07] MEDS: NORMOSOL-R 1,000 ML IV SCH ×2 (01:33→14:37)
[2020-11-07] MEDS: propofoL 1,000 MG/100 ML VIAL IV SCH ×15 (01:33→22:19)
[2020-11-07] MEDS: FAMOTIDINE 20 MG in SYRINGE 3 ML IV SCH ×3 (01:34→19:53)
[2020-11-07] MEDS ORDERED: LIDOCAINE 4% INH SOLN 4 ML BTL INH ONE (01:35)
--- NOTE | 2020-11-07 02:05 | History and Physical Report ---
DATE OF ADMISSION: 11/07/2020 CHIEF COMPLAINT: Peritonsillar abscess, airway compromise. HISTORY OF PRESENT ILLNESS: This is a 35-year-old male with past medical history significant for type 2 diabetes, diabetic polyneuropathy, morbid obesity, hypertension, bipolar 1 disorder, tobacco disorder, depression, who came to the ER with increasing sore throat. The patient also had muffled voice, and is obese with diabetes. His CAT scan showing peritonsillar abscess and large heterogeneous bilateral palatine tonsils and uvula resulting in severe narrowing of the posterior oropharynx. ER discussed the case with ENT and also critical care. There was a plan for transfer initially, then decided to keep the patient here and the patient is status post intubation, currently sedated with fentanyl and Diprivan, treated with clindamycin in the ER. Hemodynamics are stable. I could not get any history from the patient as the patient is currently sedated .Hemodynamics stable and is afebrile. Labs showed white count of 14. Rest of labs are okay. Group A Strep PCR is detected. SARS-CoV-2 RNA negative. ALLERGIES: ASPIRIN, BACTRIM, CEPHALOSPORIN, PENICILLIN, SULFA ANTIBIOTICS. PAST MEDICAL HISTORY: As mentioned above. PAST SURGICAL HISTORY: Laparoscopic appendectomy, reconstruction of right wrist - falling down on the steps. MEDICATIONS: The patient is on Lantus 15 units subcutaneous b.i.d., famotidine 20 mg p.o. b.i.d., cyclobenzaprine 5 mg p.o. t.i.d. p.r.n., nystatin 5 mg p.o. q.i.d., lisinopril 10 mg p.o. daily as per the [facility]. FAMILY HISTORY: Significant for brother has diabetes, father has diabetes and heart disorder. Mother has hypertension. SOCIAL HISTORY: ,smokes half pack a day. Alcohol rarely. No drug use. REVIEW OF SYSTEMS: Not obtainable as patient is intubated and sedated. PHYSICAL EXAMINATION: GENERAL: The patient is intubated and sedated. Patient is morbidly obese. VITAL SIGNS: Temperature 37.5, pulse 85, respiratory rate 21, blood pressure 120/70, oxygen 94% on mechanical vent and 50% FiO2. HEENT: Pupils are pinpoint and sluggish, react to light. NECK: No neck masses seen. CARDIOVASCULAR: S1, S2 heard. Regular rate and rhythm. No murmur, no gallop. RESPIRATORY SYSTEM: Normal AP diameter. No accessory muscle use. No wheezing, no crackles. ABDOMEN: Distended, some open ulcer seen above the umbilicus. Bowel sounds present. CENTRAL NERVOUS SYSTEM: Seen to be intubated, sedated. EXTREMITIES: No erythema, no edema seen. LABORATORY DATA: WBC 14.8, hemoglobin 14.7, hematocrit 43.4, platelets 265. Sodium 140, potassium 3.8, chloride 105, bicarbonate 27, BUN 7, creatinine 0.7, serum glucose 127, calcium 9.3, total bilirubin 0.6, AST 12, ALT 30, alkaline phosphatase 94. COVID-19 negative. [place] screen negative. Group A strep positive. Chest x-ray: ET tubes seen above the trixie. Somewhat poor inspiratory film. CT neck soft : Soft tissue of the neck enlarged and heterogeneous bilateral palatine tonsils and uvula resting and severe narrowing of the posterior oropharynx. Clinical correlation recommended to avoid for severe airway compromise. There is a 2.2 x 1.6 cm left peritonsillar abscess, phlegmon versus developing right peritonsillar abscess. Bilateral upper cervical lymphadenopathy, likely reactive. ASSESSMENT AND PLAN: This is a 35-year-old male with history of diabetes, morbid obesity, presents with worsening sore throat, found to have peritonsillar abscess, possibly with severe narrowing of the posterior oropharynx. 1. Left peritonsillar abscess and also severe narrowing of the posterior oropharynx, concerning for severe airway compromise. The patient is status post intubated and sedated. Did have clindamycin and Decadron in the ER. Continue with the clindamycin 600 mg t.i.d. ENT consulted and nickel plant operator consulted . On IV fluids, closely monitor. 2. Diabetes. Currently n.p.o. ISS. Monitor the blood sugars. 3. GERD, hold the home meds for now. 4. HTN as per epic Patient is on lisinopril. Will heck when patient is stable.Will monitor 5. Deep vein thrombosis prophylaxis, sequential compression devices. 6. Disposition, closely monitor in the ICU level 1. Full code. Disposition to be determined. [facility]
[2020-11-07] MEDS: CLINDAMYCIN 600 MG in DEXTROSE 5% 50 ML IV SCH ×3 (03:06→19:50)
[2020-11-07 04:45] LABS: Basophils # (auto) 0.03 K/uL (0-0.2); Basophils % (auto) 0.2 %; Eosinophils # (auto) 0.01 K/uL (0-0.5); Eosinophils % (auto) 0.1 %; Hematocrit (blood only) 40.2 % (42-52); Hemoglobin 13.2 g/dL (14.0-18.0); Immature Granulocytes # (auto) 0.07 K/uL (0.00-0.02); Immature Granulocytes % (auto) 0.5 %; Lymphocytes # (auto) 1.02 K/uL (1.2-3.4); Lymphocytes % (auto) 7.2 %; Mean Corpuscular Hemoglobin 27.8 pg (25-34); Mean Corpuscular Hgb Conc 32.8 g/dL (32-36); Mean Corpuscular Volume 84.8 fL (80-100); Monocytes # (auto) 0.54 K/uL (0.11-0.59); Monocytes % (auto) 3.8 %; Neutrophils # (auto) 12.53 K/uL (1.4-6.5); Neutrophils % (auto) 88.2 %; Platelet Count 269 K/uL (130-400); RDW Coefficient of Variation 13.7 % (11.5-14.5); RDW Standard Deviation 42.6 fL (36.4-46.3); Red Blood Count 4.74 M/uL (4.7-6.1)
[2020-11-07 05:26] LABS: BUN Creatinine Ratio 15.2 (10-20); Calcium 8.4 mg/dl (8.5-10.1); Creatinine Clr Calc Pharmacy 216.1 ml/min; Est GFR (African American) 127.2; Est GFR (Non-African American) 109.7; Magnesium 2.6 mg/dl (1.8-2.4); Phosphorus 4.8 mg/dl (2.5-4.9); Potassium 4.4 mmol/L (3.5-5.1)
[2020-11-07] MEDS ORDERED: INSULIN ASPART 100 UNITS/ML 3 ML PEN SC SCH (06:00)
--- NOTE | 2020-11-07 07:46 | XRay Report ---
SINGLE VIEW CHEST CLINICAL HISTORY: Respiratory failure. Intubation. FINDINGS: An AP, portable, semierect chest radiograph is compared to study dated 10/30/2019 and correl ated with chest CT dated 06/08/2018. An endotracheal tube has been placed. The tip projects 4 cm above the triixe. The heart is enlarged. There is pulmonary vascular congestion. Bilateral airspace opaciti es likely represent interstitial edema. Small pleural effusions are suspected. No pneumothorax is see n. The skeletal structures are osteopenic. The bony thorax is grossly intact. IMPRESSION: 1. An endotracheal tube has been placed as above. 2. Cardiomegaly with evidence of congestive failure. 3. Bilateral airspace opacities likely represent interstitial edema. Correlate clinically for evidenc e of a superimposed infectious/inflammatory pneumonitis. 4. Suspect small pleural effusions. ACT 112: Negative or not required by law. Electronically signed by: Alvaro Ayala M.D. 11/07/2020 7:45 AM
--- NOTE | 2020-11-07 07:51 | Critical Care Progress Note ---
Date of Service November 07, 2020 Assessment & Plan (1) Peritonsillar abscess: Reason Critically Ill: 35-year-old male with significant airway compromise secondary to peritonsillar abscess requiring emergent endotracheal intubation to secure airway. Now S/P I&D of left peritonsillar abscess by ENT. Neuro: -Patient intubated and sedated -Maintain sedation with propofol and fentanyl -Intermittent ketamine doses used prior to procedures -Maintain RASS -3-4 to prevent disruption of ET Tube. Cardiac/Vascular: -Hypertension: -Hold on p.o. antihypertensives at this time. -Monitor on telemetry. Respiratory: -Airway compromise: -Secondary to peritonsillar abscess; prior to intubation patient with hot potato voice and uncomfortable appearing. -Now s/p peritonsillar I&D GI/Nutrition: -NPO -Prophylaxis: Famotidine Renal/Lytes: -No significant electrolyte derangements. -Continue: Normosol @75mL/hr : -Addison catheter in place -Strict I&Os. ENDO: -History of uncontrolled diabetes -Hyperglycemic protocol HEME: -Hgb 13.6 this a.m. -Continue to monitor CBCs daily s/p I&D ID: -Peritonsillar Abscess: -Now status post I&D of left peritonsillar space/abscess -Group A strep PCR positive -COVID-19 negative -Continue IV Clindamycin Lines/IV Access: -PIVs x2 DVT Prophylaxis: -Lovenox SCDs (2) Compromised airway: (3) Acute streptococcal tonsillitis: (4) Uncontrolled diabetes mellitus: (5) Hyperglycemia: Admission and Anticipated Discharge Date Admission Date: November 06, 2020 Supervising Physician Co-Signing Physician Notes Dr. Hopper was resident physician during care of patient. I separately evaluated patient for cooper portions of the history and the exam. I was present during the critical portion of medical decision making, and I discussed the case with the resident. I generally agree with the findings and plan. I&D by ENT at the bedside. Will leave intubated for overnight. Subjective Patient was intubated overnight, off precaution for protection of airway in the setting of peritonsillar abscess. Did well without complications throughout the night into the early childhood specialist. I&D performed by Dr. Smith in room requiring bolus of ketamine to be given prior for procedural sedation. Patient has largely been doing well, however when rolled to be moved became increasingly agitated and had to have intermittent doses of ketamine. Review of Systems Review of Systems: Unobtainable due to endotracheal tube and Unobtainable due to reduced consciousness Physical Exam Constitutional: well developed, well nourished and + morbidly obese Eyes: PERRL, conjunctivae normal, anicteric sclerae Respiratory: symmetric chest movement; + abnormal respiratory effort (Intubated) and does not use accessory muscles Auscultation: lungs clear to auscultation bilaterally; no crackles, no rales, no rhonchi and no wheezes Cardiovascular: Rate/Rhythm: regular rate and regular rhythm Heart Sounds: no gallop, no murmur and no cardiac rub Vessels: normal peripheral pulses Extremities: no pedal edema and no edema Gastrointestinal (Abdomen): normal bowel sounds, soft, nontender, no hepatosplenomegaly Psychiatric: Orientation: + not alert and + not oriented x 3 Results & Data Results & Data ([facility]) Vital Signs (Past 12 Hours) Vital Signs Temp Pulse Pulse Resp BP BP Pulse Ox 11/07/20 06:00 37.2 C 68 16 118/67 94 11/07/20 05:00 37.2 C 68 18 128/70 95 11/07/20 04:00 37.2 C 69 18 120/66 95 11/07/20 03:00 37.2 C 71 18 118/64 95 11/07/20 02:58 74 18 98 11/07/20 02:00 37.2 C 81 19 123/72 97 11/07/20 00:53 37.4 C 80 20 113/67 96 11/07/20 00:39 81 11/07/20 00:16 103 H 19 95 11/07/20 00:15 85 94 11/07/20 00:00 37.4 C 101 H 80 20 113/67 93 11/06/20 23:49 94 H 120/70 92 11/06/20 23:45 101 H 90 11/06/20 23:36 108 H 181/118 H 91 11/06/20 23:35 37.5 C 94 H 83 21 120/70 95 11/06/20 23:18 103 H 115/64 93 11/06/20 23:16 105 H 112/65 92 11/06/20 23:14 105 H 109/60 93 11/06/20 23:12 106 H 114/63 93 11/06/20 23:10 106 H 122/66 93 11/06/20 23:08 109 H 120/66 93 11/06/20 23:06 109 H 126/67 93 11/06/20 23:04 110 H 126/68 93 11/06/20 23:02 113 H 125/68 94 11/06/20 23:00 116 H 129/81 94 11/06/20 22:58 119 H 135/84 93 11/06/20 22:56 121 H 147/88 H 94 11/06/20 22:54 112 H 128/67 94 11/06/20 22:52 114 H 132/71 94 11/06/20 22:50 115 H 18 132/73 94 11/06/20 22:48 117 H 18 149/76 H 94 11/06/20 22:47 120 H 18 163/93 H 95 11/06/20 22:45 135 H 18 94 11/06/20 22:44 138 H 18 191/122 H 95 11/06/20 22:38 136 H 24 98 11/06/20 22:37 129 H 35 H 175/121 H 100 11/06/20 22:34 115 H 14 167/98 H 91 11/06/20 22:30 114 H 21 99 11/06/20 22:20 112 H 16 100 11/06/20 22:16 108 H 20 123/84 100 11/06/20 22:08 100 H 22 95 11/06/20 20:50 113 H 18 94 Laboratory Results 11/07/20 11/07/20 11/07/20 Range/Units 16:13 11:42 05:57 WBC (4.8-10.8) K/uL RBC (4.7-6.1) M/uL Hgb (14.0-18.0) g/dL Hct (42-52) % MCV (80-100) fL MCH (25-34) pg MCHC (32-36) g/dL RDW Std Deviation (36.4-46.3) fL RDW Coeff of Black (11.5-14.5) % Plt Count (130-400) K/uL MPV (7.4-10.4) fL Immature Gran % (Auto) % Neut % (Auto) % Lymph % (Auto) % [place] % (Auto) % Eos % (Auto) % Baso % (Auto) % Neut # (Auto) (1.4-6.5) K/uL Lymph # (Auto) (1.2-3.4) K/uL [place] # (Auto) (0.11-0.59) K/uL Eos # (Auto) (0-0.5) K/uL Baso # (Auto) (0-0.2) K/uL Immature Gran # (Auto) (0.00-0.02) K/uL Sodium (136-145) mmol/L Potassium (3.5-5.1) mmol/L Chloride (98-107) mmol/L Carbon Dioxide (21-32) mmol/L Anion Gap (3-11) BUN (7-18) mg/dl Creatinine (0.6-1.4) mg/dl Est Cr Clr Drug Dosing Est GFR ( Amer) Est GFR (Non-Af Amer) BUN/Creatinine Ratio (10-20) Glucose (70-99) mg/dl POC Glucose 172 H 203 H 212 H (70-99) mg/dl Estimat Average Glucose Hemoglobin A1c Calcium (8.5-10.1) mg/dl Phosphorus (2.5-4.9) mg/dl Magnesium (1.8-2.4) mg/dl Total Bilirubin (0.2-1) mg/dl AST (15-37) U/L ALT (12-78) U/L Alkaline Phosphatase (45-117) U/L Total Protein (6.4-8.2) gm/dl Albumin (3.4-5.0) gm/dl Globulin (2.5-4.0) gm/dl Albumin/Globulin Ratio (0.9-2) Nasal Screen MRSA (PCR) (Negative) COVID-19 Eval Order Monoscreen (Negative) SARS-CoV-2, RNA, NAAT (NEGATIVE) Group A Strep (PCR) (NotDetected) 11/07/20 11/07/20 11/07/20 Range/Units 04:34 04:34 04:34 WBC 14.20 H (4.8-10.8) K/uL RBC 4.74 (4.7-6.1) M/uL Hgb 13.2 L (14.0-18.0) g/dL Hct 40.2 L (42-52) % MCV 84.8 (80-100) fL MCH 27.8 (25-34) pg MCHC 32.8 (32-36) g/dL RDW Std Deviation 42.6 (36.4-46.3) fL RDW Coeff of Black 13.7 (11.5-14.5) % Plt Count 269 (130-400) K/uL MPV 10.0 (7.4-10.4) fL Immature Gran % (Auto) 0.5 % Neut % (Auto) 88.2 % Lymph % (Auto) 7.2 % [place] % (Auto) 3.8 % Eos % (Auto) 0.1 % Baso % (Auto) 0.2 % Neut # (Auto) 12.53 H (1.4-6.5) K/uL Lymph # (Auto) 1.02 L (1.2-3.4) K/uL [place] # (Auto) 0.54 (0.11-0.59) K/uL Eos # (Auto) 0.01 (0-0.5) K/uL Baso # (Auto) 0.03 (0-0.2) K/uL Immature Gran # (Auto) 0.07 H (0.00-0.02) K/uL Sodium 138 (136-145) mmol/L Potassium 4.4 D (3.5-5.1) mmol/L Chloride 107 (98-107) mmol/L Carbon Dioxide 21 (21-32) mmol/L Anion Gap 10.0 (3-11) BUN 13 D (7-18) mg/dl Creatinine 0.88 (0.6-1.4) mg/dl Est Cr Clr Drug Dosing 216.1 Est GFR ( Amer) 127.2 Est GFR (Non-Af Amer) 109.7 BUN/Creatinine Ratio 15.2 (10-20) Glucose 219 H (70-99) mg/dl POC Glucose (70-99) mg/dl Estimat Average Glucose Pending Hemoglobin A1c Pending Calcium 8.4 L (8.5-10.1) mg/dl Phosphorus 4.8 (2.5-4.9) mg/dl Magnesium 2.6 H (1.8-2.4) mg/dl Total Bilirubin (0.2-1) mg/dl AST (15-37) U/L ALT (12-78) U/L Alkaline Phosphatase (45-117) U/L Total Protein (6.4-8.2) gm/dl Albumin (3.4-5.0) gm/dl Globulin (2.5-4.0) gm/dl Albumin/Globulin Ratio (0.9-2) Nasal Screen MRSA (PCR) (Negative) COVID-19 Eval Order Monoscreen (Negative) SARS-CoV-2, RNA, NAAT (NEGATIVE) Group A Strep (PCR) (NotDetected) 11/07/20 11/06/20 11/06/20 Range/Units 00:16 23:45 21:52 WBC (4.8-10.8) K/uL RBC (4.7-6.1) M/uL Hgb (14.0-18.0) g/dL Hct (42-52) % MCV (80-100) fL MCH (25-34) pg MCHC (32-36) g/dL RDW Std Deviation (36.4-46.3) fL RDW Coeff of Black (11.5-14.5) % Plt Count (130-400) K/uL MPV (7.4-10.4) fL Immature Gran % (Auto) % Neut % (Auto) % Lymph % (Auto) % [place] % (Auto) % Eos % (Auto) % Baso % (Auto) % Neut # (Auto) (1.4-6.5) K/uL Lymph # (Auto) (1.2-3.4) K/uL [place] # (Auto) (0.11-0.59) K/uL Eos # (Auto) (0-0.5) K/uL Baso # (Auto) (0-0.2) K/uL Immature Gran # (Auto) (0.00-0.02) K/uL Sodium (136-145) mmol/L Potassium (3.5-5.1) mmol/L Chloride (98-107) mmol/L Carbon Dioxide (21-32) mmol/L Anion Gap (3-11) BUN (7-18) mg/dl Creatinine (0.6-1.4) mg/dl Est Cr Clr Drug Dosing Est GFR ( Amer) Est GFR (Non-Af Amer) BUN/Creatinine Ratio (10-20) Glucose (70-99) mg/dl POC Glucose 178 H (70-99) mg/dl Estimat Average Glucose Hemoglobin A1c Calcium (8.5-10.1) mg/dl Phosphorus (2.5-4.9) mg/dl Magnesium (1.8-2.4) mg/dl Total Bilirubin (0.2-1) mg/dl AST (15-37) U/L ALT (12-78) U/L Alkaline Phosphatase (45-117) U/L Total Protein (6.4-8.2) gm/dl Albumin (3.4-5.0) gm/dl Globulin (2.5-4.0) gm/dl Albumin/Globulin Ratio (0.9-2) Nasal Screen MRSA (PCR) Negative (Negative) COVID-19 Eval Order Monoscreen Negative (Negative) SARS-CoV-2, RNA, NAAT (NEGATIVE) Group A Strep (PCR) (NotDetected) 11/06/20 11/06/20 11/06/20 Range/Units 21:30 21:30 19:30 WBC (4.8-10.8) K/uL RBC (4.7-6.1) M/uL Hgb (14.0-18.0) g/dL Hct (42-52) % MCV (80-100) fL MCH (25-34) pg MCHC (32-36) g/dL RDW Std Deviation (36.4-46.3) fL RDW Coeff of Black (11.5-14.5) % Plt Count (130-400) K/uL MPV (7.4-10.4) fL Immature Gran % (Auto) % Neut % (Auto) % Lymph % (Auto) % [place] % (Auto) % Eos % (Auto) % Baso % (Auto) % Neut # (Auto) (1.4-6.5) K/uL Lymph # (Auto) (1.2-3.4) K/uL [place] # (Auto) (0.11-0.59) K/uL Eos # (Auto) (0-0.5) K/uL Baso # (Auto) (0-0.2) K/uL Immature Gran # (Auto) (0.00-0.02) K/uL Sodium 140 (136-145) mmol/L Potassium 3.8 (3.5-5.1) mmol/L Chloride 105 (98-107) mmol/L Carbon Dioxide 27 (21-32) mmol/L Anion Gap 8.0 (3-11) BUN 7 (7-18) mg/dl Creatinine 0.79 (0.6-1.4) mg/dl Est Cr Clr Drug Dosing Not Reportable Est GFR ( Amer) 133.0 Est GFR (Non-Af Amer) 114.7 BUN/Creatinine Ratio 8.4 L (10-20) Glucose 127 H (70-99) mg/dl POC Glucose (70-99) mg/dl Estimat Average Glucose Hemoglobin A1c Calcium 9.3 (8.5-10.1) mg/dl Phosphorus (2.5-4.9) mg/dl Magnesium (1.8-2.4) mg/dl Total Bilirubin 0.6 (0.2-1) mg/dl AST 12 L (15-37) U/L ALT 30 (12-78) U/L Alkaline Phosphatase 94 (45-117) U/L Total Protein 8.0 (6.4-8.2) gm/dl Albumin 2.9 L (3.4-5.0) gm/dl Globulin 5.1 H (2.5-4.0) gm/dl Albumin/Globulin Ratio 0.6 L (0.9-2) Nasal Screen MRSA (PCR) (Negative) COVID[facility]19 [facility] ([facility]) SARS-CoV-2, RNA, NAAT NEGATIVE (NEGATIVE) Group A Strep (PCR) (NotDetected) 11/06/20 11/06/20 Range/Units 19:30 19:07 WBC 14.81 H (4.8-10.8) K/uL RBC 5.16 (4.7-6.1) M/uL Hgb 14.7 (14.0-18.0) g/dL Hct 43.4 (42-52) % MCV 84.1 (80-100) fL MCH 28.5 (25-34) pg MCHC 33.9 (32-36) g/dL RDW Std Deviation 42.4 (36.4-46.3) fL RDW Coeff of Black 13.7 (11.5-14.5) % Plt Count 265 (130-400) K/uL MPV 9.8 (7.4-10.4) fL Immature Gran % (Auto) 0.3 % Neut % (Auto) 76.4 % Lymph % (Auto) 13.2 % [place] % (Auto) 7.7 % Eos % (Auto) 2.2 % Baso % (Auto) 0.2 % Neut # (Auto) 11.30 H (1.4-6.5) K/uL Lymph # (Auto) 1.96 (1.2-3.4) K/uL [place] # (Auto) 1.14 H (0.11-0.59) K/uL Eos # (Auto) 0.33 (0-0.5) K/uL Baso # (Auto) 0.03 (0-0.2) K/uL Immature Gran # (Auto) 0.05 H (0.00-0.02) K/uL Sodium (136-145) mmol/L Potassium (3.5-5.1) mmol/L Chloride (98-107) mmol/L Carbon Dioxide (21-32) mmol/L Anion Gap (3-11) BUN (7-18) mg/dl Creatinine (0.6-1.4) mg/dl Est Cr Clr Drug Dosing Est GFR ( Amer) Est GFR (Non-Af Amer) BUN/Creatinine Ratio (10-20) Glucose (70-99) mg/dl POC Glucose (70-99) mg/dl Estimat Average Glucose Hemoglobin A1c Calcium (8.5-10.1) mg/dl Phosphorus (2.5-4.9) mg/dl Magnesium (1.8-2.4) mg/dl Total Bilirubin (0.2-1) mg/dl AST (15-37) U/L ALT (12-78) U/L Alkaline Phosphatase (45-117) U/L Total Protein (6.4-8.2) gm/dl Albumin (3.4-5.0) gm/dl Globulin (2.5-4.0) gm/dl Albumin/Globulin Ratio (0.9-2) Nasal Screen MRSA (PCR) (Negative) COVID-19 Eval Order Monoscreen (Negative) SARS-CoV-2, RNA, NAAT (NEGATIVE) Group A Strep (PCR) DETECTED A (NotDetected) Medications Administered Current Inpatient Medications Enoxaparin Sodium (Enoxaparin Inj 40 Mg/0.4 Ml Syr) 40 mg SQ Q24H [facility] Stop: 12/07/20 08:59 Last Admin: 11/07/20 08:16 Dose: 40 mg Documented by: Fentanyl Citrate (Fentanyl Bolus From Bag) 50 mcg IV Q60M PRN PRN Reason: Pain or Agitation Stop: 11/20/20 22:11 Last Admin: 11/07/20 16:17 Dose: 50 mcg Documented by: Propofol (Diprivan) 1,000 mg in 100 mls @ 46.305 mls/hr IV .Q2H10M [facility]; Protocol Stop: 11/09/20 22:14 Last Admin: 11/07/20 15:20 Dose: 45 mcg/kg/min, 46.3 mls/hr Documented by: Fentanyl Citrate (Fentanyl Drip) 1,250 mcg in 250 mls @ 35 mls/hr IV .Q7H9M [facility]; Protocol Stop: 11/20/20 22:29 Last Titration: 11/07/20 16:17 Dose: 175 mcg/hr, 35 mls/hr Documented by: Parenteral Electrolytes (Normosol-R) 1,000 mls @ 75 mls/hr IV .[id number] [facility] Stop: 12/06/20 23:34 Last Admin: 11/07/20 14:37 Dose: 75 mls/hr Documented by: Famotidine 20 mg/ Syringe 5 mls @ 2.5 mls/min IV Q12 [facility] Stop: 12/06/20 23:34 Last Admin: 11/07/20 08:15 Dose: 2.5 mls/min Documented by: Clindamycin Phosphate 600 mg/ (Dextrose) 54 mls @ 100 mls/hr IV Q8H [facility] Stop: 11/17/20 02:59 Last Infusion: 11/07/20 11:33 Dose: Infused Documented by: Insulin Aspart (Insulin Aspart 100 Units/Ml 3 Ml Pen) 0 units SC Q4 [facility] Stop: 12/07/20 11:59 Last Admin: 11/07/20 16:16 Dose: 3 units Documented by: Insulin Glargine (Insulin Glargine Solostar 100 Units/Ml 3 Ml Pen) 25 units SC BID [facility] Stop: 12/07/20 08:59 Last Admin: 11/07/20 08:28 Dose: 25 units Documented by: Miscellaneous Information (Pharmacy Glycemic Mgmt Consult) 1 ea N/A UD PRN PRN Reason: Consult Stop: 12/07/20 08:15 Propofol (Propofol Bolus From Bag) 20 mg IV Q5M PRN PRN Reason: Sedation Stop: 11/09/20 22:11 Last Admin: 11/07/20 16:17 Dose: 20 mg Documented by: Resident Activity Tracking Resident Involvement: Resident Care Provided Care Provided: Adult Hospital Medicine
--- NOTE | 2020-11-07 07:56 | Billing Data ---
Date of Service November 07, 2020 Coding Level of Care Code Critical Care 1st - mins
--- NOTE | 2020-11-07 08:11 | ENT Consultation ---
Date of Consultation November 07, 2020 Assessment & Plan (1) Peritonsillar abscess: Would recommend continued IV antibiotics and steroids. Should be discharged on 2 weeks of oral antibiotics. Happy to see in the office for follow-up [address] Mendes was present when I examined the patient and is coming international trade manager this morning, I will defer to him if he would like to change anything in the patient's management based on how is clinical course evolves. Present on Admission?: Yes (2) Acute streptococcal tonsillitis: (3) Compromised airway: (4) Suspected 2019-nCoV infection: History of Present Illness Reason for Consultation: bilateral tonsillar infections with concern for airway narrowing Attending Physician: Sundar Fernando, DO History of Present Illness Please see ED not fo further details, but ENT was consulted for airway back-up in this patient where CT showed [employer] SUPER[employer] on one side and developing phlegmon on the other. Patient was started on IV antibiotics and scheduled dexamethasone. Patient has multiple other comorbidities. Appears patient was successfully intubated earlier today. Allergies Allergy/AdvReac Type Severity Reaction Status Date / Time aspirin Allergy Unknown Unknown Verified 11/05/20 05:33 Bactrim Allergy Unknown . Verified 02/01/18 00:10 Cephalosporins Allergy Unknown Unknown Verified 11/05/20 05:33 Penicillins Allergy Unknown Unknown Verified 11/05/20 05:33 Sulfa (Sulfonamide Allergy Unknown Unknown Verified 11/05/20 05:33 Antibiotics) sulfamethoxazole Allergy Unknown Unknown Verified 11/05/20 05:33 trimethoprim Allergy Unknown Unknown Verified 11/05/20 05:33 Home Medications Medication Instructions Recorded Confirmed Type insulin glargine [Lantus Solostar 50 unit SUBCUT BID 11/05/20 11/06/20 History U-100 Insulin] nystatin 5 ml PO QID 10 Days #200 ml 11/05/20 11/06/20 Rx cyclobenzaprine 5 mg PO TID PRN 11/06/20 11/06/20 History famotidine 20 mg PO BID 11/06/20 11/06/20 History Patient History Medical History ADD (attention deficit disorder) Asthma, exercise induced Bipolar I disorder Depression Diabetes mellitus with hyperosmolarity without hyperglycemic hyperosmolar nonketotic coma Diabetes mellitus, type II Discharge planning issues DVT prophylaxis Morbid obesity MRSA (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 Skin ulcer Tobacco use disorder Surgical History S/P appendectomy Family History Mother Hypertension Father Coronary heart disease Diabetes Brother Diabetes Social History Smoking Status: Unknown if ever smoked Second Hand Exposure: No; Preferred Language: Yoruba Communication Ability: Effective Communication Ability Comment: patient intubated Visual Impairment: No Limitations Hearing Ability: Normal Cut Out Operator Required: No Beliefs That Will Affect Care: None Current Living Situation: Family Current Living Situation Comment: unable to obtain Feels Safe at Home: Yes Assistive Devices: None Assistive Devices Comment: unknown Review of Systems Review of Systems: All systems reviewed & are unremarkable except as noted in HPI & below Physical Exam Physical Exam: INPROGRESS Given patient's intubated status, exam was limited. ETT appeared in proper position. Results & Data ([facility]) Vital Signs (Past 12 Hours) Vital Signs Temp Pulse Pulse Resp BP BP Pulse Ox 11/07/20 06:00 37.2 C 68 16 118/67 94 11/07/20 05:00 37.2 C 68 18 128/70 95 11/07/20 04:00 37.2 C 69 18 120/66 95 11/07/20 03:00 37.2 C 71 18 118/64 95 11/07/20 02:58 74 18 98 11/07/20 02:00 37.2 C 81 19 123/72 97 11/07/20 00:53 37.4 C 80 20 113/67 96 11/07/20 00:39 81 11/07/20 00:16 103 H 19 95 11/07/20 00:15 85 94 11/07/20 00:00 37.4 C 101 H 80 20 113/67 93 11/06/20 23:49 94 H 120/70 92 11/06/20 23:45 101 H 90 11/06/20 23:36 108 H 181/118 H 91 11/06/20 23:35 37.5 C 94 H 83 21 120/70 95 11/06/20 23:18 103 H 115/64 93 11/06/20 23:16 105 H 112/65 92 11/06/20 23:14 105 H 109/60 93 11/06/20 23:12 106 H 114/63 93 11/06/20 23:10 106 H 122/66 93 11/06/20 23:08 109 H 120/66 93 11/06/20 23:06 109 H 126/67 93 11/06/20 23:04 110 H 126/68 93 11/06/20 23:02 113 H 125/68 94 11/06/20 23:00 116 H 129/81 94 11/06/20 22:58 119 H 135/84 93 11/06/20 22:56 121 H 147/88 H 94 11/06/20 22:54 112 H 128/67 94 11/06/20 22:52 114 H 132/71 94 11/06/20 22:50 115 H 18 132/73 94 11/06/20 22:48 117 H 18 149/76 H 94 11/06/20 22:47 120 H 18 163/93 H 95 11/06/20 22:45 135 H 18 94 11/06/20 22:44 138 H 18 191/122 H 95 11/06/20 22:38 136 H 24 98 11/06/20 22:37 129 H 35 H 175/121 H 100 11/06/20 22:34 115 H 14 167/98 H 91 11/06/20 22:30 114 H 21 99 11/06/20 22:20 112 H 16 100 11/06/20 22:16 108 H 20 123/84 100 11/06/20 22:08 100 H 22 95 11/06/20 20:50 113 H 18 94
[2020-11-07] MEDS: ENOXAPARIN INJ 40 MG/0.4 ML SYR SQ SCH (08:16)
[2020-11-07] MEDS ORDERED: PHARMACY GLYCEMIC MGMT CONSULT PRN (08:16)
[2020-11-07] MEDS: INSULIN GLARGINE SOLOSTAR 100 UNITS/ML 3 ML PEN SC SCH ×2 (08:28→19:52)
--- NOTE | 2020-11-07 08:50 | Hospitalist Progress Note ---
Date of Service November 07, 2020 Assessment & Plan (1) Peritonsillar abscess: (2) Acute streptococcal tonsillitis: (3) Compromised airway: (4) Infection due to Streptococcus group B: (5) Diabetes mellitus, type II: (6) Uncontrolled diabetes mellitus: (7) Bipolar I disorder: (8) Tobacco use disorder: (9) ADD (attention deficit disorder): This is a 35-year-old male with history of diabetes, morbid obesity, presents with worsening sore throat, found to have peritonsillar abscess with severe narrowing of the posterior oropharynx. 1. Left peritonsillar abscess and also severe narrowing of the posterior oropharynx, concerning for severe airway compromise. The patient is intubated and sedated. Was given clindamycin and Decadron in the ER. Continue with the clindamycin 600 mg t.i.d. ENT consulted and floor space allocator on case. On IV fluids, closely monitor. 2. Diabetes. Currently n.p.o. ISS. Monitor the blood sugars. 3. GERD, hold the home meds for now. 4. HTN as per epic Patient is on lisinopril. Will heck when patient is stable.Will monitor 5. Deep vein thrombosis prophylaxis, sequential compression devices. 6. Disposition, closely monitor in the ICU level 1. Full code. Disposition to be determined. labs checked ROS-Vented Physical Exam Gen-Sedated, Afebrile, Obese Head-NCAT, EOMI, PERRLA, Anicteric Sclera, Edema Neck-Supple, No JVD, No Thyromegaly, No Masses, No LAD, No Bruits Lungs-Clear to Auscultation Bilaterally, No Rales, No Rhonchi, No Wheezing, No Crepitus Chest-No S4, +S1, +S2, No S3, No Murmurs, No Rubs, No Gallops, No Ectopy Abdomen-Soft, Bowel Sounds Present, Non Distended, Obese. No Palpable Masses Musculoskeletal-Not assessed Extremities-No Cyanosis, No Clubbing, No Edema Nuero-Vented. Sedatedl Psych-Sedated Admission and Anticipated Discharge Date Admission Date: November 06, 2020 Results & Data Results & Data ([facility]) Vital Signs (Past 12 Hours) Vital Signs Temp Pulse Pulse Resp BP BP Pulse Ox 11/07/20 07:15 65 18 94 11/07/20 06:00 37.2 C 68 16 118/67 94 11/07/20 05:00 37.2 C 68 18 128/70 95 11/07/20 04:00 37.2 C 69 18 120/66 95 11/07/20 03:00 37.2 C 71 18 118/64 95 11/07/20 02:58 74 18 98 11/07/20 02:00 37.2 C 81 19 123/72 97 11/07/20 00:53 37.4 C 80 20 113/67 96 11/07/20 00:39 81 11/07/20 00:16 103 H 19 95 11/07/20 00:15 85 94 11/07/20 00:00 37.4 C 101 H 80 20 113/67 93 11/06/20 23:49 94 H 120/70 92 11/06/20 23:45 101 H 90 11/06/20 23:36 108 H 181/118 H 91 11/06/20 23:35 37.5 C 94 H 83 21 120/70 95 11/06/20 23:18 103 H 115/64 93 11/06/20 23:16 105 H 112/65 92 11/06/20 23:14 105 H 109/60 93 11/06/20 23:12 106 H 114/63 93 11/06/20 23:10 106 H 122/66 93 11/06/20 23:08 109 H 120/66 93 11/06/20 23:06 109 H 126/67 93 11/06/20 23:04 110 H 126/68 93 11/06/20 23:02 113 H 125/68 94 11/06/20 23:00 116 H 129/81 94 11/06/20 22:58 119 H 135/84 93 11/06/20 22:56 121 H 147/88 H 94 11/06/20 22:54 112 H 128/67 94 11/06/20 22:52 114 H 132/71 94 11/06/20 22:50 115 H 18 132/73 94 11/06/20 22:48 117 H 18 149/76 H 94 11/06/20 22:47 120 H 18 163/93 H 95 11/06/20 22:45 135 H 18 94 11/06/20 22:44 138 H 18 191/122 H 95 11/06/20 22:38 136 H 24 98 11/06/20 22:37 129 H 35 H 175/121 H 100 11/06/20 22:34 115 H 14 167/98 H 91 11/06/20 22:30 114 H 21 99 11/06/20 22:20 112 H 16 100 11/06/20 22:16 108 H 20 123/84 100 11/06/20 22:08 100 H 22 95 11/06/20 20:50 113 H 18 94
[2020-11-07] MEDS ORDERED: KETAMINE HCL INJ 50 MG/ML 10 ML VIAL IV STA ×3 (10:27→16:59)
[2020-11-07] MEDS ORDERED: RAPID SEQUENCE INDUCTION BAG ONE (10:29)
[2020-11-07] MEDS: fentaNYL DRIP 1,250 MCG/250 ML BAG IV SCH ×3 (10:44→22:20)
[2020-11-07] MEDS ORDERED: VECURONIUM BROMIDE 10 MG VIAL IV STA (11:15)
--- NOTE | 2020-11-07 12:43 | ENT Consultation ---
Date of Consultation November 07, 2020 Assessment & Plan (1) Peritonsillar abscess: Case was discussed with Dr. Carreon and with Dr. Fernando. The patient airway was severely restricted early this a.m. and he had to be intubated. CT does indeed show left peritonsillar abscess. Examination did indeed show bulging of the left soft palate with exudate at the superior pole of the left tonsil with necrotic tissue consistent with pointing of the abscess. Because of the airway compromise and the elevated white count and the CT scan findings and the physical exam findings, it was decided to proceed with incision and drainage of the left peritonsillar abscess. The right-sided phlegmon should be manageable by IV antibiotics. Consent was obtained from the patient's spouse by phone. (2) Acute streptococcal tonsillitis: (3) Compromised airway: (4) Infection due to Streptococcus group B: History of Present Illness Reason for Consultation: Left peritonsillar abscess and right side phlegmon Attending Physician: Sundar Fernando, DO History of Present Illness This 35-year-old gentleman was admitted early this a.m. from the emergency room with airway compromise. His CT scan demonstrated a 2.2 cm left peritonsillar abscess with a phlegmon on the right side. Because of severe narrowing of his airway he was intubated to maintain his airway. Dr. Carreon came in the room soon after I was there and was gracious enough to discuss the patient and then transfer the management of the patient over to me and that I am on-call from 7 AM this morning. Allergies Allergy/AdvReac Type Severity Reaction Status Date / Time aspirin Allergy Unknown Unknown Verified 11/05/20 05:33 Bactrim Allergy Unknown . Verified 02/01/18 00:10 Cephalosporins Allergy Unknown Unknown Verified 11/05/20 05:33 Penicillins Allergy Unknown Unknown Verified 11/05/20 05:33 Sulfa (Sulfonamide Allergy Unknown Unknown Verified 11/05/20 05:33 Antibiotics) sulfamethoxazole Allergy Unknown Unknown Verified 11/05/20 05:33 trimethoprim Allergy Unknown Unknown Verified 11/05/20 05:33 Home Medications Medication Instructions Recorded Confirmed Type insulin glargine [Lantus Solostar 50 unit SUBCUT BID 11/05/20 11/06/20 History U-100 Insulin] nystatin 5 ml PO QID 10 Days #200 ml 11/05/20 11/06/20 Rx cyclobenzaprine 5 mg PO TID PRN 11/06/20 11/06/20 History famotidine 20 mg PO BID 11/06/20 11/06/20 History Patient History Medical History (Updated 11/07/20 @ 12:40 by Simona Mendes MD) ADD (attention deficit disorder) Asthma, exercise induced Bipolar I disorder Depression Diabetes mellitus with hyperosmolarity without hyperglycemic hyperosmolar nonketotic coma Diabetes mellitus, type II Discharge planning issues DVT prophylaxis Morbid obesity MRSA (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 Skin ulcer Tobacco use disorder Surgical History S/P appendectomy Family History Mother Hypertension Father Coronary heart disease Diabetes Brother Diabetes Social History Smoking Status: Unknown if ever smoked Second Hand Exposure: No; Preferred Language: Yemeni Communication Ability: Effective Communication Ability Comment: patient intubated Visual Impairment: No Limitations Hearing Ability: Normal Manager Sales Training Required: No Beliefs That Will Affect Care: None Current Living Situation: Family Current Living Situation Comment: unable to obtain Feels Safe at Home: Yes Assistive Devices: None Assistive Devices Comment: unknown Physical Exam Constitutional: + ill appearing (He is intubated and on the vent) and + morbidly obese Eyes: PERRL ENMT: Mouth: + oropharynx abnormality (The oropharynx shows exudative tonsillitis/left soft palate bulging) Throat: + lateral displacement of uvula (Shifted to the right) and + peritonsillar mass (Left peritonsillar swelling, soft palate bulge) Neck: trachea midline, no thyromegaly Results & Data ([facility]) Vital Signs (Past 12 Hours) Vital Signs Temp Pulse Pulse Resp BP Pulse Ox 11/07/20 11:00 102 H 24 181/109 H 98 11/07/20 10:50 102 H 22 94 11/07/20 10:00 36.9 C 65 18 127/72 92 11/07/20 09:00 67 18 130/69 94 11/07/20 08:00 36.8 C 65 18 118/66 94 02/05/21 07:15 65 18 94 11/07/20 06:00 37.2 C 68 16 118/67 94 11/07/20 05:00 37.2 C 68 18 128/70 95 11/07/20 04:00 37.2 C 69 18 120/66 95 11/07/20 03:00 37.2 C 71 18 118/64 95 11/07/20 02:58 74 18 98 11/07/20 02:00 37.2 C 81 19 123/72 97 11/07/20 00:53 37.4 C 80 20 113/67 96 11/07/20 00:39 81
--- NOTE | 2020-11-07 12:47 | Operative Report ---
PG Post Operative Report Pre & Post Diagnosis Left peritonsillar abscess I identified the patient and participated in the time-out.: Yes Procedure Incision and drainage left peritonsillar abscess Surgeon Simona Mendes MD Foreign Banknote Teller MS2 Baljeet Estimated Blood Loss 5 Findings Consistent with Post-Op Diagnosis Specimens none Anesthesia Type General Complications none Disposition Accompanied Patient To Recovery: Yes Disposition: Surgical ICU Indications Peritonsillar abscess, left Description of Procedure The patient was in the ICU, intubated, and sedated. Dr. Jeffries administered anesthesia for the patient. I draped the patient, properly identified the patient. The mouthgag was placed over the endotracheal tube. The pharynx was suctioned clean. The left peritonsillar area was aspirated however no pus was obtained. Because of the swelling left peritonsillar incision was made using the #12 blade and the peritonsillar space was opened using the tonsillar hemostat expressing purulent material mixed with blood with odor consistent with anaerobic infection. The abscess cavity was widely opened and suctioned clean. The patient tolerated the procedure well and remains in the intensive care unit intubated. I attest to the content of the Intraoperative Record and any orders documented therein. Any exceptions are noted below.
[2020-11-07] MEDS: INSULIN ASPART 100 UNITS/ML 3 ML PEN SC SCH ×3 (13:14→19:52)
--- NOTE | 2020-11-07 13:49 | Pharmacy Report ---
Pharmacy Glycemic Short Note 2 - Date of Service November 07, 2020 - Glycemic Short BSG Results (Last 24 hours): 11/06/20 11/07/20 11/07/20 19:30 00:16 04:34 Glucose 127 H 219 H POC Glucose 178 H 11/07/20 11/07/20 05:57 11:42 Glucose POC Glucose 212 H 203 H OUTPATIENT ANTIDIABETIC REGIMEN: * Lantus 50 units SQ BID * A1c = ? ASSESSMENT: * Type 2 diabetic admitted to ICU for GAS pharyngitis, peritonsillar abscess requiring intubation for airway protection * He remains intubated this AM, I&D abscess performed by ENT this AM, no further steroids have been ordered (single dose of dexamethasone 10mg IV given last PM) * He remains NPO at this time. * Will begin basal/bolus regimen based upon reported out-pt regimen which proved 100 units of insulin per day, however will give 50% basal + 50% rapid acting. Weight based regimen would be difficult to estimate given body habitus. PLAN FOR INPATIENT GLYCEMIC CONTROL: * Add A1c to labs * Basal insulin * Lantus 25 units SQ BID * Bolus insulin * NovoLog per scale Q 4 hours * Goal Range: Low 110 mg/dL - High 140 mg/dL * Correction Factor: 15 mg/dL/unit * Nutritional / Prandial insulin per carb ratio of 1 unit per 5 grams CHO consumed PLAN FOR DISCHARGE: * to be determined
[2020-11-08] MEDS: propofoL 1,000 MG/100 ML VIAL IV SCH ×9 (00:02→23:25)
[2020-11-08] MEDS: INSULIN ASPART 100 UNITS/ML 3 ML PEN SC SCH ×7 (00:02→22:07)
[2020-11-08] MEDS: NORMOSOL-R 1,000 ML IV SCH (02:23)
[2020-11-08] MEDS: CLINDAMYCIN 600 MG in DEXTROSE 5% 50 ML IV SCH ×3 (03:28→19:49)
[2020-11-08 04:57] LABS: Basophils # (auto) 0.01 K/uL (0-0.2); Basophils % (auto) 0.1 %; Eosinophils # (auto) 0.09 K/uL (0-0.5); Eosinophils % (auto) 0.8 %; Hematocrit (blood only) 37.3 % (42-52); Hemoglobin 12.5 g/dL (14.0-18.0); Immature Granulocytes # (auto) 0.06 K/uL (0.00-0.02); Immature Granulocytes % (auto) 0.6 %; Lymphocytes # (auto) 1.99 K/uL (1.2-3.4); Lymphocytes % (auto) 18.4 %; Mean Corpuscular Hemoglobin 28.4 pg (25-34); Mean Corpuscular Hgb Conc 33.5 g/dL (32-36); Mean Corpuscular Volume 84.8 fL (80-100); Mean Platelet Volume 9.9 fL (7.4-10.4); Monocytes # (auto) 1.04 K/uL (0.11-0.59); Monocytes % (auto) 9.6 %; Neutrophils % (auto) 70.5 %; Platelet Count 295 K/uL (130-400); RDW Coefficient of Variation 13.8 % (11.5-14.5); RDW Standard Deviation 43.3 fL (36.4-46.3); White Blood Count 10.79 K/uL (4.8-10.8)
[2020-11-08] MEDS: fentaNYL DRIP 1,250 MCG/250 ML BAG IV SCH ×3 (05:24→23:25)
[2020-11-08 05:54] LABS: BUN Creatinine Ratio 22.9 (10-20); Calcium 8.3 mg/dl (8.5-10.1); Creatinine Clr Calc Pharmacy 271.6 ml/min; Est GFR (African American) 139.7; Est GFR (Non-African American) 120.6; Magnesium 2.6 mg/dl (1.8-2.4); Phosphorus 3.7 mg/dl (2.5-4.9); Potassium 3.7 mmol/L (3.5-5.1)
[2020-11-08 06:12] LABS: Estimated Average Glucose 226 mg/dl; Hemoglobin A1C 9.5 % (4.5-5.6)
--- NOTE | 2020-11-08 07:40 | Hospitalist Progress Note ---
Date of Service November 08, 2020 Assessment & Plan (1) Peritonsillar abscess: (2) Acute streptococcal tonsillitis: (3) Compromised airway: (4) Infection due to Streptococcus group B: (5) Diabetes mellitus, type II: (6) Uncontrolled diabetes mellitus: (7) Bipolar I disorder: (8) Tobacco use disorder: (9) ADD (attention deficit disorder): This is a 35-year-old male with history of diabetes, morbid obesity, presents with worsening sore throat, found to have peritonsillar abscess with severe narrowing of the posterior oropharynx. 1. Left peritonsillar abscess and also severe narrowing of the posterior oropharynx, concerning for severe airway compromise. The patient is intubated and sedated. Was given clindamycin and Decadron in the ER. Continue with the clindamycin 600 mg t.i.d. 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 Now Extubated 2. Diabetes. Full Liquids. ISS. Monitor the blood sugars. 3. GERD, hold the home meds for now. 4. HTN as per epic Patient is on lisinopril. Will heck when patient is stable.Will monitor 5. Deep vein thrombosis prophylaxis, sequential compression devices. 6. Disposition, Transfer to Med/Surg. Full code. Disposition Med/Surg. labs checked ROS-No Headache, No Visual Changes, No Nausea, No Vomiting, No Fever, No Chills, No Neck Pain or Stiffness, No Chest Pain, No Palpitations, No SOB, No GLYNN, No Cough, No Sputum, No Wheezing, No Abdominal Pain, No Diarrhea, No Hematemesis, No Hemoptysis, No Unexpected Weight Loss, No Flank pain, No Melena, No Hematochezia, No Frequency, No Urgency, No Burning, No Hematuria, No Rashes, No Diaphoresis. Appetite is Normal, Sore Throat Physical Exam Gen-AAO x 3, NAD, Afebrile, Extubated, Obese Head-NCAT, EOMI, PERRLA, Anicteric Sclera, No Posterior Pharyngeal Erythema Neck-Supple, No JVD, No Thyromegaly, No Masses, No LAD, No Bruits Lungs-Clear to Auscultation Bilaterally, No Rales, No Rhonchi, No Wheezing, No Crepitus Chest-No S4, +S1, +S2, No S3, No Murmurs, No Rubs, No Gallops, No Ectopy Abdomen-Soft, Bowel Sounds Present, Non Tender, Non Distended, No Hepatomegaly, No Splenomegaly, No Palpable Masses, No Rebound, No Rigidity, No Guarding Musculoskeletal-Full Range of Motion Bilaterally, No CVAT Extremities-No Cyanosis, No Clubbing, No Edema Nuero-Cranial Nerves II-XII grossly intact, Motor WNL, DTRs WNL, Strength WNL, Non Focal Psych-Normal Mood Admission and Anticipated Discharge Date Admission Date: November 06, 2020 Results & Data Results & Data ([facility]) Vital Signs (Past 12 Hours) Vital Signs Temp Pulse Resp BP Pulse Ox 11/08/20 03:20 84 19 92 11/08/20 03:00 84 95 11/08/20 02:55 84 131/73 95 11/08/20 02:00 89 96 11/08/20 01:55 36.7 C 87 141/88 H 95 11/08/20 01:00 86 95 11/08/20 00:55 84 145/87 H 95 11/08/20 00:00 87 94 11/07/20 23:55 83 116/69 94 11/07/20 23:44 90 18 92 11/07/20 23:36 88 11/07/20 23:00 97 H 94 11/07/20 22:55 97 H 144/91 H 94 11/07/20 22:25 36.6 C 11/07/20 22:00 94 H 94 11/07/20 21:55 95 H 142/89 H 94 11/07/20 21:02 89 11/07/20 21:00 88 93 11/07/20 20:55 87 135/83 94 11/07/20 20:00 89 93 11/07/20 19:55 88 132/80 93
[2020-11-08] MEDS: ENOXAPARIN INJ 40 MG/0.4 ML SYR SQ SCH (07:50)
[2020-11-08] MEDS: FAMOTIDINE 20 MG in SYRINGE 3 ML IV SCH (07:50)
--- NOTE | 2020-11-08 08:06 | Critical Care Progress Note ---
Date of Service November 08, 2020 Assessment & Plan (1) Peritonsillar abscess: Reason Critically Ill: 35-year-old male with significant airway compromise secondary to peritonsillar abscess requiring emergent endotracheal intubation to secure airway. Now S/P I&D of left peritonsillar abscess by ENT. Following extubation patient stable for downgrade from ICU level of care. Neuro: -CAM ICU negative Cardiac/Vascular: -Hypertension: -Hold on p.o. antihypertensives at this time. -Monitor on telemetry. Respiratory: -Airway compromise: -Secondary to peritonsillar abscess; prior to intubation patient with hot potato voice and uncomfortable appearing. -Now s/p peritonsillar I&D -Now extubated and improving on CPAP -Sleep apnea -Collateral collected from family indicates multiple apneic episodes and snoring, in addition to patient's body habitus making this very likely obstructive sleep apnea. -Start CPAP as needed when asleep GI/Nutrition: -Start full liquid diet Renal/Lytes: -No significant electrolyte derangements. : -Addison catheter in place ENDO: -History of uncontrolled diabetes -Glycemic management consult HEME: -Hgb 12.5 this a.m. -Continue to monitor CBCs daily s/p I&D ID: -Peritonsillar Abscess: -POD #1 from I&D of left peritonsillar space/abscess with ENT -Group A strep PCR positive -COVID-19 negative -Continue IV Clindamycin Lines/IV Access: -PIVs x2 DVT Prophylaxis: -Lovenox -SCDs (2) Compromised airway: (3) Acute streptococcal tonsillitis: (4) Uncontrolled diabetes mellitus: (5) Hyperglycemia: Admission and Anticipated Discharge Date Admission Date: November 06, 2020 Supervising Physician Co-Signing Physician Notes Dr. Hopper was resident physician during care of patient. I separately evaluated patient for cooper portions of the history and the exam. I was present during the critical portion of medical decision making, and I discussed the case with the resident. I generally agree with the findings and plan. Sinus pause immediately after performing exhalation hold prior to extubation, I consider this to be vasovagal in nature. Patient is a 35-year-old male with morbid obesity and diabetes BMI is 54. Denies chest pain or shortness of breath. Stable for downgrade out of ICU. Subjective Early this morning, patient had a 4-second sinus pause immediately following performing isolation hold for intubation. Quickly returned to sinus rhythm and was alert and oriented throughout the entire episode looking at staff within the room. Endorses some throat discomfort, but feels like this is much improved from when he originally came in and subsequently had to be intubated. Discussions with significant other this morning elucidated that patient frequently has apneic episodes with frequent snoring throughout the night. Patient was supposed to go out for sleep study at some point, however this was been delayed by coronavirus pandemic. Review of Systems Review of Systems: All systems reviewed & are unremarkable except as noted in Subjective Physical Exam Constitutional: well developed, well nourished and + morbidly obese Eyes: PERRL, conjunctivae normal, anicteric sclerae Respiratory: symmetric chest movement; no respiratory distress, no labored breathing and no retractions Auscultation: lungs clear to auscultation bilaterally; no crackles, no rales, no rhonchi and no wheezes Cardiovascular: Rate/Rhythm: regular rate and regular rhythm Heart Sounds: no gallop, no murmur and no cardiac rub Vessels: normal peripheral pulses Extremities: no pedal edema and no edema Gastrointestinal (Abdomen): normal bowel sounds, soft, nontender, no hepatosplenomegaly Psychiatric: Orientation: alert and oriented x 3 Results & Data Results & Data ([facility]) Vital Signs (Past 12 Hours) Vital Signs Temp Pulse Resp BP Pulse Ox 11/08/20 03:20 84 19 92 11/08/20 03:00 84 95 11/08/20 02:55 84 131/73 95 11/08/20 02:00 89 96 11/08/20 01:55 36.7 C 87 141/88 H 95 11/08/20 01:00 86 95 11/08/20 00:55 84 145/87 H 95 11/08/20 00:00 87 94 11/07/20 23:55 83 116/69 94 11/07/20 23:44 90 18 92 11/07/20 23:36 88 11/07/20 23:00 97 H 94 11/07/20 22:55 97 H 144/91 H 94 11/07/20 22:25 36.6 C 11/07/20 22:00 94 H 94 11/07/20 21:55 95 H 142/89 H 94 11/07/20 21:02 89 11/07/20 21:00 88 93 11/07/20 20:55 87 135/83 94 Laboratory Results 11/08/20 11/08/20 11/08/20 Range/Units 11:08 07:52 04:47 WBC (4.8-10.8) K/uL RBC (4.7-6.1) M/uL Hgb (14.0-18.0) g/dL Hct (42-52) % MCV (80-100) fL MCH (25-34) pg MCHC (32-36) g/dL RDW Std Deviation (36.4-46.3) fL RDW Coeff of Black (11.5-14.5) % Plt Count (130-400) K/uL MPV (7.4-10.4) fL Immature Gran % (Auto) % Neut % (Auto) % Lymph % (Auto) % Wetzel % (Auto) % Eos % (Auto) % Baso % (Auto) % Neut # (Auto) (1.4-6.5) K/uL Lymph # (Auto) (1.2-3.4) K/uL Wetzel # (Auto) (0.11-0.59) K/uL Eos # (Auto) (0-0.5) K/uL Baso # (Auto) (0-0.2) K/uL Immature Gran # (Auto) (0.00-0.02) K/uL Sodium 141 (136-145) mmol/L Potassium 3.7 D (3.5-5.1) mmol/L Chloride 108 H (98-107) mmol/L Carbon Dioxide 27 (21-32) mmol/L Anion Gap 6.0 (3-11) BUN 16 (7-18) mg/dl Creatinine 0.70 (0.6-1.4) mg/dl Est Cr Clr Drug Dosing 271.6 ml/min Est GFR ( Amer) 139.7 Est GFR (Non-Af Amer) 120.6 BUN/Creatinine Ratio 22.9 H (10-20) Glucose 164 H (70-99) mg/dl POC Glucose 112 H 137 H (70-99) mg/dl Estimat Average Glucose mg/dl Hemoglobin A1c (4.5-5.6) % Calcium 8.3 L (8.5-10.1) mg/dl Phosphorus 3.7 D (2.5-4.9) mg/dl Magnesium 2.6 H (1.8-2.4) mg/dl 11/08/20 11/08/20 11/07/20 Range/Units 04:47 03:50 23:51 WBC 10.79 (4.8-10.8) K/uL RBC 4.40 L (4.7-6.1) M/uL Hgb 12.5 L (14.0-18.0) g/dL Hct 37.3 L (42-52) % MCV 84.8 (80-100) fL MCH 28.4 (25-34) pg MCHC 33.5 (32-36) g/dL RDW Std Deviation 43.3 (36.4-46.3) fL RDW Coeff of Black 13.8 (11.5-14.5) % Plt Count 295 (130-400) K/uL MPV 9.9 (7.4-10.4) fL Immature Gran % (Auto) 0.6 % Neut % (Auto) 70.5 % Lymph % (Auto) 18.4 % Wetzel % (Auto) 9.6 % Eos % (Auto) 0.8 % Baso % (Auto) 0.1 % Neut # (Auto) 7.60 H (1.4-6.5) K/uL Lymph # (Auto) 1.99 (1.2-3.4) K/uL Wetzel # (Auto) 1.04 H (0.11-0.59) K/uL Eos # (Auto) 0.09 (0-0.5) K/uL Baso # (Auto) 0.01 (0-0.2) K/uL Immature Gran # (Auto) 0.06 H (0.00-0.02) K/uL Sodium (136-145) mmol/L Potassium (3.5-5.1) mmol/L Chloride (98-107) mmol/L Carbon Dioxide (21-32) mmol/L Anion Gap (3-11) BUN (7-18) mg/dl Creatinine (0.6-1.4) mg/dl Est Cr Clr Drug Dosing ml/min Est GFR ( Amer) Est GFR (Non-Af Amer) BUN/Creatinine Ratio (10-20) Glucose (70-99) mg/dl POC Glucose 181 H 173 H (70-99) mg/dl Estimat Average Glucose mg/dl Hemoglobin A1c (4.5-5.6) % Calcium (8.5-10.1) mg/dl Phosphorus (2.5-4.9) mg/dl Magnesium (1.8-2.4) mg/dl 11/07/20 11/07/20 11/07/20 Range/Units 19:46 16:13 04:34 WBC (4.8-10.8) K/uL RBC (4.7-6.1) M/uL Hgb (14.0-18.0) g/dL Hct (42-52) % MCV (80-100) fL MCH (25-34) pg MCHC (32-36) g/dL RDW Std Deviation (36.4-46.3) fL RDW Coeff of Black (11.5-14.5) % Plt Count (130-400) K/uL MPV (7.4-10.4) fL Immature Gran % (Auto) % Neut % (Auto) % Lymph % (Auto) % Wetzel % (Auto) % Eos % (Auto) % Baso % (Auto) % Neut # (Auto) (1.4-6.5) K/uL Lymph # (Auto) (1.2-3.4) K/uL Wetzel # (Auto) (0.11-0.59) K/uL Eos # (Auto) (0-0.5) K/uL Baso # (Auto) (0-0.2) K/uL Immature Gran # (Auto) (0.00-0.02) K/uL Sodium (136-145) mmol/L Potassium (3.5-5.1) mmol/L Chloride (98-107) mmol/L Carbon Dioxide (21-32) mmol/L Anion Gap (3-11) BUN (7-18) mg/dl Creatinine (0.6-1.4) mg/dl Est Cr Clr Drug Dosing ml/min Est GFR ( Amer) Est GFR (Non-Af Amer) BUN/Creatinine Ratio (10-20) Glucose (70-99) mg/dl POC Glucose 154 H 172 H (70-99) mg/dl Estimat Average Glucose 226 mg/dl Hemoglobin A1c 9.5 H (4.5-5.6) % Calcium (8.5-10.1) mg/dl Phosphorus (2.5-4.9) mg/dl Magnesium (1.8-2.4) mg/dl Medications Administered Current Inpatient Medications Cyclobenzaprine HCl (Cyclobenzaprine Hcl 5 Mg Tab) 5 mg PO TID PRN PRN Reason: Muscle Spasm Stop: 12/08/20 11:46 Enoxaparin Sodium (Enoxaparin Inj 40 Mg/0.4 Ml Syr) 40 mg SQ Q24H DINAE Stop: 12/07/20 08:59 Last Admin: 11/08/20 07:50 Dose: 40 mg Documented by: Famotidine (Famotidine 20 Mg Tab) 20 mg PO BID [facility] Stop: 12/08/20 20:59 Clindamycin Phosphate 600 mg/ (Dextrose) 54 mls @ 100 mls/hr IV Q8H DIANE Stop: 11/17/20 02:59 Last Infusion: 11/08/20 11:41 Dose: Infused Documented by: Insulin Aspart (Insulin Aspart 100 Units/Ml 3 Ml Pen) 0 units SC ACHS DIANE Stop: 12/08/20 12:29 Last Admin: 11/08/20 12:03 Dose: Not Given Documented by: Insulin Glargine (Insulin Glargine Solostar 100 Units/Ml 3 Ml Pen) 25 units SC BID [facility] Stop: 12/07/20 08:59 Last Admin: 11/08/20 08:10 Dose: 25 units Documented by: Miscellaneous Information (Pharmacy Glycemic Mgmt Consult) 1 ea N/A UD PRN PRN Reason: Consult Stop: 12/07/20 08:15 Nystatin (Nystatin Susp 500,000 U/5 Ml Udc) 5 ml PO QID [facility] Stop: 12/08/20 12:59 Resident Activity Tracking Resident Involvement: Resident Care Provided Care Provided: Adult Hospital Medicine
--- NOTE | 2020-11-08 08:07 | Billing Data ---
Date of Service November 08, 2020 Coding Level of Care Code 10964 Subseq Hosp Care Lvl 3
[2020-11-08] MEDS: INSULIN GLARGINE SOLOSTAR 100 UNITS/ML 3 ML PEN SC SCH (08:10)
[2020-11-08] MEDS ORDERED: Nursing to Pharmacy Communication SCH (11:15)
[2020-11-08] MEDS ORDERED: CYCLOBENZAPRINE HCL 5 MG TAB PO PRN (11:47)
--- NOTE | 2020-11-08 12:54 | Ears,Nose,Throat Progress Note ---
Date of Service November 08, 2020 Assessment & Plan (1) Peritonsillar abscess: Status post I&D yesterday. Extubated. Much improved. Discussed with Dr. Fernando. Further management per medicine. He can follow-up in my office in 2 weeks. (2) Acute streptococcal tonsillitis: Admission and Anticipated Discharge Date Admission Date: November 06, 2020 Subjective Feel much better. Minimal sore throat. Just scratchy. Able to tolerate p.o. fluids. Physical Exam Constitutional: + morbidly obese Eyes: PERRL, conjunctivae normal, anicteric sclerae ENMT: Mouth: + oropharynx abnormality (Left peritonsillar I&D site healing uvula much smaller, fair airway) Neck: trachea midline, no thyromegaly Respiratory: normal respiratory effort, lungs clear to auscultation Cardiovascular: RRR, no murmur, no edema Results & Data ([facility]) Vital Signs (Past 12 Hours) Vital Signs Temp Pulse Resp BP Pulse Ox 11/08/20 09:50 93 11/08/20 08:55 95 H 156/81 H 84 L 11/08/20 07:55 36.8 C 68 121/66 95 11/08/20 07:25 68 18 95 11/08/20 07:00 71 94 11/08/20 03:20 84 19 92 11/08/20 03:00 84 95 11/08/20 02:55 84 131/73 95 11/08/20 02:00 89 96 11/08/20 01:55 36.7 C 87 141/88 H 95 11/08/20 01:00 86 95 11/08/20 00:55 84 145/87 H 95
[2020-11-08] MEDS ORDERED: GLUCOSE 40% GEL 15 GM TUBE PO PRN (14:45)
[2020-11-08] MEDS ORDERED: GLUCOSE 10 TABS/TUBE PO PRN (14:45)
[2020-11-08] MEDS ORDERED: DEXTROSE 50% 50 ML SYRINGE IV PRN (14:45)
[2020-11-08] MEDS ORDERED: CARBOHYDRATES FOR HYPOGLYCEMIA PO PRN (14:45)
[2020-11-08] MEDS ORDERED: GLUCAGON FOR INJ 1 MG VIAL IM PRN (14:45)
[2020-11-08] MEDS: NYSTATIN SUSP 500,000 U/5 ML UDC PO SCH ×3 (14:50→20:32)
--- NOTE | 2020-11-08 14:51 | Pharmacy Report ---
Glycemic Control Progress Note - Date of Service November 08, 2020 - Scope Glycemic Pharmacist consulted for glycemic control to write orders per [facility] inpatient glycemic control protocol. - Objective Accuchecks BSG(last 24 hours):: 11/07/20 11/07/20 11/07/20 16:13 19:46 23:51 Glucose POC Glucose 172 H 154 H 173 H 11/08/20 11/08/20 11/08/20 03:50 04:47 07:52 Glucose 164 H POC Glucose 181 H 137 H 11/08/20 11:08 Glucose POC Glucose 112 H HbA1c:: Hemoglobin A1c 9.5 % (4.5-5.6) H 11/07/20 04:34 - Recent Pertinent Medications The patient is currently receiving: * Basal insulin: Lantus 25 units every 12 hours * Correctional Insulin: Novolog Correction per scale ACHS Goal Range: Low 110 mg/dL - High 140 mg/dL Correction Factor: 15 mg/dL/unit * Prandial insulin: Per carb ratio of 1 unit per 5 grams CHO consumed - Outpatient Anti-Diabetic Meds Lantus 50 units BID - Assessment & Plan ASSESSMENT: * See progress note from 11/07/20 for more background info, in short: * Pt receiving SQ basal bolus insulin regimen for hyperglycemia secondary to baseline DM (outpatient regimen on hold). Patient currently on clindamycin for GAS pharyngitis. He is extubated and on full liquid diet. * Patient is currently receiving an average of 64 units of insulin per day * 50 units of basal insulin * 14 units of prandial/correctional insulin * BSGs ranging 154 - 212 mg/dl over the past 24hrs * Changes needed to insulin regimen: * AM Fasting BSG = 137 mg/dl. This is in goal range for patient based on inpatient targets and co-morbidities. The patient did receive dexamethasone on 11/06/2019 so this is influencing how much insulin patient received on 11/07/2020. Gave patient Lantus 25 units this morning but will have lower doses for this evening. * Post-prandial BSGs are okay. Utilize weight-based stress of 2 Novolog. * Total daily dose is TBD as patient is just starting to eat. PLAN FOR INPATIENT GLYCEMIC CONTROL: * Lantus 25 units SQ x 1 then 0-20 units SQ tonight (hold if BSG < 140 mg/dL; 10 units if BSG 140-180 mg/dL; 20 units if BSG > 180 mg/dL). * Continuing correction factor of 20 mg/dl/unit * Continuing carb ratio of 1 unit per 6 grams CHO consumed * Continuing goal rang of Low 110 mg/dL - High 140 mg/dL RECOMMENDATIONS FOR DISCHARGE: * TBD Thank you.
[2020-11-08] MEDS: FAMOTIDINE 20 MG TAB PO SCH (20:32)
[2020-11-08] MEDS ORDERED: INSULIN GLARGINE SOLOSTAR 100 UNITS/ML 3 ML PEN SC SCH (21:00)
[2020-11-09] MEDS: CLINDAMYCIN 600 MG in DEXTROSE 5% 50 ML IV SCH ×2 (03:50→11:38)
[2020-11-09 06:06] LABS: Basophils # (auto) 0.03 K/uL (0-0.2); Basophils % (auto) 0.3 %; Eosinophils # (auto) 0.49 K/uL (0-0.5); Eosinophils % (auto) 4.8 %; Hematocrit (blood only) 39.3 % (42-52); Hemoglobin 12.9 g/dL (14.0-18.0); Lymphocytes # (auto) 2.52 K/uL (1.2-3.4); Lymphocytes % (auto) 24.4 %; Mean Corpuscular Hemoglobin 27.6 pg (25-34); Mean Corpuscular Hgb Conc 32.8 g/dL (32-36); Mean Corpuscular Volume 84.2 fL (80-100); Mean Platelet Volume 9.4 fL (7.4-10.4); Monocytes # (auto) 0.87 K/uL (0.11-0.59); Monocytes % (auto) 8.4 %; Neutrophils % (auto) 61.1 %; Platelet Count 264 K/uL (130-400); RDW Coefficient of Variation 13.5 % (11.5-14.5); RDW Standard Deviation 41.5 fL (36.4-46.3); Red Blood Count 4.67 M/uL (4.7-6.1); White Blood Count 10.31 K/uL (4.8-10.8)
[2020-11-09 06:38] LABS: Calcium 8.3 mg/dl (8.5-10.1); Creatinine Clr Calc Pharmacy 302.2 ml/min; Est GFR (African American) 145.9; Est GFR (Non-African American) 125.9; Phosphorus 4.2 mg/dl (2.5-4.9); Potassium 3.5 mmol/L (3.5-5.1)
[2020-11-09] MEDS: ENOXAPARIN INJ 40 MG/0.4 ML SYR SQ SCH (08:46)
[2020-11-09] MEDS: INSULIN ASPART 100 UNITS/ML 3 ML PEN SC SCH (08:46)
[2020-11-09] MEDS: NYSTATIN SUSP 500,000 U/5 ML UDC PO SCH (08:47)
[2020-11-09] MEDS: FAMOTIDINE 20 MG TAB PO SCH (08:47)
[2020-11-09] MEDS ORDERED: INSULIN GLARGINE SOLOSTAR 100 UNITS/ML 3 ML PEN SC SCH (09:00)
--- NOTE | 2020-11-09 09:24 | Discharge Summary ---
Date of Service November 09, 2020 Admission HPI Per Admitting Provider 35-year-old male with past medical history significant for type 2 diabetes, diabetic polyneuropathy, morbid obesity, hypertension, bipolar 1 disorder, tobacco disorder, depression, who came to the ER with increasing sore throat. The patient also had muffled voice, and is obese with diabetes. His CAT scan showing peritonsillar abscess and large heterogeneous bilateral palatine tonsils and uvula resulting in severe narrowing of the posterior oropharynx. ER discussed the case with ENT and also critical care. There was a plan for transfer initially, then decided to keep the patient here and the patient is status post intubation, currently sedated with fentanyl and Diprivan, treated with clindamycin in the ER. Hemodynamics are stable. I could not get any history from the patient as the patient is currently sedated .Hemodynamics stable and is afebrile. Admission Exam Per Admitting Provider GENERAL: The patient is intubated and sedated. Patient is morbidly obese. VITAL SIGNS: Temperature 37.5, pulse 85, respiratory rate 21, blood pressure 120/70, oxygen 94% on mechanical vent and 50% FiO2. HEENT: Pupils are pinpoint and sluggish, react to light. NECK: No neck masses seen. CARDIOVASCULAR: S1, S2 heard. Regular rate and rhythm. No murmur, no gallop. RESPIRATORY SYSTEM: Normal AP diameter. No accessory muscle use. No wheezing, no crackles. ABDOMEN: Distended, some open ulcer seen above the umbilicus. Bowel sounds present. CENTRAL NERVOUS SYSTEM: Seen to be intubated, sedated. EXTREMITIES: No erythema, no edema seen. Principal Diagnosis (1) Peritonsillar abscess: (2) Acute streptococcal tonsillitis: (3) Compromised airway: (4) Infection due to Streptococcus group B: (5) Diabetes mellitus, type II: (6) Uncontrolled diabetes mellitus: (7) Bipolar I disorder: (8) Tobacco use disorder: (9) ADD (attention deficit disorder): (10) GERD (11) HTN Discharge Exam See Below Discharge Data Allergies Allergy/AdvReac Type Severity Reaction Status Date / Time aspirin Allergy Unknown Unknown Verified 11/05/20 05:33 Bactrim Allergy Unknown . Verified 02/01/18 00:10 Cephalosporins Allergy Unknown Unknown Verified 11/05/20 05:33 Penicillins Allergy Unknown Unknown Verified 11/05/20 05:33 Sulfa (Sulfonamide Allergy Unknown Unknown Verified 11/05/20 05:33 Antibiotics) sulfamethoxazole Allergy Unknown Unknown Verified 11/05/20 05:33 trimethoprim Allergy Unknown Unknown Verified 11/05/20 05:33 Consultations 11/06/20 22:17 ED Decision to Admit Stat 11/06/20 23:35 Consult Case Management - Discharge Planning Routine 11/07/20 07:00 Consult Otolaryngology (Head and Neck) Routine Ordered Studies 11/06/20 19:08 CT soft tissue neck w con Stat Current Diagnoses Streptococcal infection, unspecified site (11/06/20) Type 2 diabetes mellitus with hyperglycemia (11/06/20) Type 2 diabetes mellitus without complications (11/06/20) Nicotine dependence, unspecified, uncomplicated (11/06/20) Bipolar disorder, unspecified (11/06/20) Other specified behavioral and emotional disorders with onset usually occurring in childhood and adolescence (11/06/20) Acute streptococcal tonsillitis, unspecified (11/06/20) Peritonsillar abscess (11/06/20) Other specified respiratory disorders (11/06/20) Hyperglycemia, unspecified (11/06/20) Contact with and (suspected) exposure to COVID-19 (11/06/20) Other specified health status (11/06/20) Allergies aspirin Allergy (Unknown, Verified 11/05/20 05:33) Unknown Bactrim Allergy (Unknown, Verified 02/01/18 00:10) . Cephalosporins Allergy (Unknown, Verified 11/05/20 05:33) Unknown Penicillins Allergy (Unknown, Verified 11/05/20 05:33) Unknown Sulfa (Sulfonamide Antibiotics) Allergy (Unknown, Verified 11/05/20 05:33) Unknown sulfamethoxazole Allergy (Unknown, Verified 11/05/20 05:33) Unknown trimethoprim Allergy (Unknown, Verified 11/05/20 05:33) Unknown Height/Weight/Isolation Height 6 ft 4 in Weight 202.5 kg Chemistry 11/08/20 11/09/20 04:47 05:53 Sodium 141 138 Potassium 3.7 D 3.5 Chloride 108 H 104 Carbon Dioxide 27 26 Anion Gap 6.0 9.0 BUN 16 12 Creatinine 0.70 0.63 Glucose 164 H 118 H Microbiology 11/06/20 19:07 Throat Throat Culture - Preliminary Pin-point growth present, reincubating. Hospital Course (1) Peritonsillar abscess: (2) Acute streptococcal tonsillitis: (3) Compromised airway: (4) Infection due to Streptococcus group B: (5) Diabetes mellitus, type II: (6) Uncontrolled diabetes mellitus: (7) Bipolar I disorder: (8) Tobacco use disorder: (9) ADD (attention deficit disorder): This is a 35-year-old male with history of diabetes, morbid obesity, presents with worsening sore throat, found to have peritonsillar abscess with severe narrowing of the posterior oropharynx. 1. Left peritonsillar abscess and also severe narrowing of the posterior oropharynx, concerning for severe airway compromise. The patient is intubated and sedated. Was given clindamycin and Decadron in the ER. Continue with the clindamycin 600 mg t.i.d. ENT Performed a L APPLIED BEHAVIOR SPECIALIST I&D. Now Extubated, DC today on Clinda and f/u c ENT in 2 weeks 2. Diabetes. Full Liquids. ISS. Monitor the blood sugars. 3. GERD, hold the home meds for now. 4. HTN as per epic Patient is on lisinopril. Will heck when patient is stable.Will monitor 5. Deep vein thrombosis prophylaxis, sequential compression devices. 6. Disposition, Home today Full code. Disposition DC today. labs checked ROS-No Headache, No Visual Changes, No Nausea, No Vomiting, No Fever, No Chills, No Neck Pain or Stiffness, No Chest Pain, No Palpitations, No SOB, No GLYNN, No Cough, No Sputum, No Wheezing, No Abdominal Pain, No Diarrhea, No Hematemesis, No Hemoptysis, No Unexpected Weight Loss, No Flank pain, No Melena, No Hematochezia, No Frequency, No Urgency, No Burning, No Hematuria, No Rashes, No Diaphoresis. Appetite is Normal, Sore Throat Physical Exam Gen-AAO x 3, NAD, Afebrile, Extubated, Obese Head-NCAT, EOMI, PERRLA, Anicteric Sclera, No Posterior Pharyngeal Erythema Neck-Supple, No JVD, No Thyromegaly, No Masses, No LAD, No Bruits Lungs-Clear to Auscultation Bilaterally, No Rales, No Rhonchi, No Wheezing, No Crepitus Chest-No S4, +S1, +S2, No S3, No Murmurs, No Rubs, No Gallops, No Ectopy Abdomen-Soft, Bowel Sounds Present, Non Tender, Non Distended, No Hepatomegaly, No Splenomegaly, No Palpable Masses, No Rebound, No Rigidity, No Guarding Musculoskeletal-Full Range of Motion Bilaterally, No CVAT Extremities-No Cyanosis, No Clubbing, No Edema Nuero-Cranial Nerves II-XII grossly intact, Motor WNL, DTRs WNL, Strength WNL, Non Focal Psych-Normal Mood Total Time Total Time Spent Total Time Spent (In Minutes): 45 mins Total Time Includes: Examination of the Patient, Discharge Planning, Medication Reconciliation and Communication With Other Providers Discharge Plan Discharge Items Patient Disposition: Home - Self-Care Reason For Visit: PERITONSILLAR ABSCESS, DIFFICULT AIRWAY Discharge Diagnosis: (1) Peritonsillar abscess: (2) Acute streptococcal tonsillitis: (3) Compromised airway: (4) Infection due to Streptococcus group B: (5) Diabetes mellitus, type II: (6) Uncontrolled diabetes mellitus: (7) Bipolar I disorder: (8) Tobacco use disorder: (9) ADD (attention deficit disorder): (10) GERD (11) HTN Condition on Discharge: Good Activity: Resume your previous activity Lifting: Gradually increase as tolerated Bathing: No limitations Sexual Activity: When tolerated Exercise/Sports: Gradually increase as tolerated Driving/Machine Use: No limitations Weightbearing: Full weightbearing Non-emergency contact: Primary Care Provider and Surgeon Call non-emergency contact if: you have any medication questions Follow-up/Referrals: Simona Mendes MD [Physician] - (2 weeks) Elliot Benites DO [Primary Care Provider] - Diet: Carb Consistent or DM2 and Heart Healthy Addtl Attending Provider Instructions: Saline Gargle rinses twice daily Pending Studies at Discharge: No Stand-Alone Forms: My FTL SOLAR, Smoking Cessation Medications and DC Order Prescriptions: New clindamycin HCl 300 mg capsule 300 mg PO TID 7 Days Qty: 21 RF: 0 Continued Lantus Solostar U-100 Insulin 100 unit/mL (3 mL) insulin pen 50 unit SUBCUT BID RF: 0 nystatin 100,000 unit/mL suspension 5 ml PO QID 10 Days Qty: 200 RF: 0 famotidine 20 mg tablet 20 mg PO BID RF: 0 cyclobenzaprine 5 mg tablet 5 mg PO TID PRN (Reason: Muscle Spasm) RF: 0 Discharge Orders: Discharge Order (Routine); Ordered 11/09/20 Ordered By: Huy Rojas Admission Data Admit Date/Time: 11/06/20 23:00 Attending Provider: Huy Rojas Admit Provider: Gabriel Payton Primary Care Provider: Elliot Benites Other Providers: Huy Rojas ; Josiah Oakes ; Dayanara Carreon
[2020-11-10] MEDS ORDERED: INSULIN GLARGINE SOLOSTAR 100 UNITS/ML 3 ML PEN SC SCH (09:00)
== END 2020-11-09 12:24 | disposition home or self-care (01) | DRG 144 ==
LOC: ED 18:45 → SUATTDRO 23:00 → 1E 23:00 → 3W 11-08 11:45
DX: J98.8 Other specified respiratory disorders; K21.9 Gastro-esophageal reflux disease without esophagitis; Z20.822 Contact with and (suspected) exposure to COVID-19; Z79.899 Other long term (current) drug therapy; Z68.43 Body mass index [BMI] 50.0-59.9, adult; Z88.1 Allergy status to other antibiotic agents; Z88.0 Allergy status to penicillin; F17.200 Nicotine dependence, unspecified, uncomplicated; Z88.2 Allergy status to sulfonamides; Z79.4 Long term (current) use of insulin; E66.01 Morbid (severe) obesity due to excess calories; B95.0 Streptococcus, group A, as the cause of diseases classified elsewhere; G47.33 Obstructive sleep apnea (adult) (pediatric); E11.65 Type 2 diabetes mellitus with hyperglycemia; I10 Essential (primary) hypertension; J36 Peritonsillar abscess; Z88.6 Allergy status to analgesic agent

== ENCOUNTER 2020-11-28 11:48 | Observation (INO) ==
--- NOTE | 2020-11-28 12:21 | Emergency Department Note ---
Impression & Plan Abscess, peritonsillar, Strep pharyngitis ED Provider Note NAME: BENSON GARCIA AGE: 35 SEX: M : 1985 ARRIVES VIA: Walk-In INFORMANT: Patient, ED PROVIDER(S): MD Luís Hall Chief Complaint: Sore throat HPI: Patient did present with concern for sore throat. The patient states that he had a prior history of a recent CAT scan where there was a noted either peritonsillar mass which was removed by Dr. HIGGINBOTHAM within the last several weeks. The patient states he has some mild difficulty with swallowing yesterday but noticed it was worse today. The patient has not been on any recent antibiotics. The patient does admit to smoking but denies any issues with recent food bolus or impaction. Patient denies any fevers or chills. Patient denies chest pain but has had some occasional dry cough. ROS: See HPI for pertinent positives and negatives. A total of 10 systems were reviewed and otherwise negative. Past medical history: See below Surgical history: See below Social history: See below Physical Exam: GENERAL: Wearing a mask. NAD, non-toxic. EYE EXAM: Normal conjunctiva. PERRL, no anisocoria and EOM's grossly intact w/o pain. OROPHARYNX: Moist mucus membranes. Grossly normal dentition. Left-sided tonsillar with associated uvular deviation with left-sided peritonsillar swelling with associated tonsillar whitish exudate. No cervical adenopathy, no submental, submandibular, or sublingual swelling. NECK: Supple, no nuchal rigidity, no adenopathy, non-tender. No signs of menin gismus. Full range of motion of the neck and not stridulous. No carotid bruits auscultated. LUNGS: Clear to auscultation. Normal chest wall mechanics. HEART: NSR, no MRG. ABDOMEN: Abdomen soft, non-tender, normo-active bowel sounds, no masses, no rebound or guarding. BACK: No CVA TTP. SKIN: No rashes and no bruising. UPPER EXTREMITIES: Upper extremities are grossly normal. LOWER EXTREMITIES: Grossly normal, no edema. NEURO EXAM: A&O x3, cranial nerves II-XII grossly intact, normal speech, moves all 4 extremities on command w/o issue. Differential diagnoses: .ddsore Course: Patient was seen and evaluated the bedside. Full history physical exam was performed. EKG: None Imaging Studies: Radiology results as stated below per my review in the radiologist's interpretation: Cardiac monitoring: An order was placed for continuous cardiac monitoring. The monitor shows a rate of 100 with sinus rhythm. MDM: Patient was seen due to concern for sore throat. The patient does have some left-sided tonsillar deviation concerning for the possibility of a peritonsillar abscess. I did speak the on-call ear nose and throat physician after obtaining blood work and the patient was treated symptomatically with antibiotics and steroids IV fluids and pain medication. Given the patient's most recent intubation from the associated peritonsillar abscess I did reach out to Dr. HIGGINBOTHAM with ENT. He was evaluated by Dr. HIGGINBOTHAM and subsequently taken to the OR for likely drainage and then subsequent admission. Patient had a white count of 11.9 with a normal H&H and platelet count. The patient's kidney function was unremarkable. Group A strep was detected and the patient's Covid was negative. Patient did receive Clinda due to the patient's prior history of penicillin and cephalosporin allergies. Past Med/Surg History Medical History (Updated 11/28/20 @ 14:48 by Ney Rubalcava MD) ADD (attention deficit disorder) Asthma, exercise induced Bipolar I disorder Depression Diabetes mellitus with hyperosmolarity without hyperglycemic hyperosmolar nonketotic coma Diabetes mellitus, type II Discharge planning issues DVT prophylaxis Morbid obesity MRSA (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 Skin ulcer Tobacco use disorder Surgical History S/P appendectomy Family History Mother Hypertension Father Coronary heart disease Diabetes Brother Diabetes Social History Smoking Status: Never smoker Second Hand Exposure: No; Preferred Language: Icelandic Communication Ability: Unable Visual Impairment: No Limitations Hearing Ability: Normal Airport Engineer Required: No Beliefs That Will Affect Care: None Current Living Situation: Family Current Living Situation Comment: unable to obtain Feels Safe at Home: Yes Assistive Devices: BiPap and Oxygen - Continuous Allergies Allergies Allergy/AdvReac Type Severity Reaction Status Date / Time aspirin Allergy Unknown Unknown Verified 11/28/20 14:34 Bactrim Allergy Unknown . Verified 02/01/18 00:10 Cephalosporins Allergy Unknown Unknown Verified 11/28/20 14:34 Penicillins Allergy Unknown Unknown Verified 11/28/20 14:34 Sulfa (Sulfonamide Allergy Unknown Unknown Verified 11/28/20 14:34 Antibiotics) sulfamethoxazole Allergy Unknown Unknown Verified 11/28/20 14:34 trimethoprim Allergy Unknown Unknown Verified 11/28/20 14:34 Home Meds Home Medications Medication Instructions Recorded Confirmed Lantus Solostar U-100 Insulin 50 unit SUBCUT BID 11/05/20 11/06/20 cyclobenzaprine 5 mg PO TID PRN 11/06/20 11/06/20 famotidine 20 mg PO BID 11/06/20 11/06/20 Results & Data (ED) Vital Signs Vital Signs - 24 hr 11/28/20 11:52 11/28/20 14:15 11/28/20 14:26 Temperature 36.4 C L 36.9 C Temperature Source Temporal Artery Scan Oral Pulse Rate 101 H Pulse Rate [Right Finger] 90 100 H Pulse Rhythm [Right Finger] Regular Pulse Strength [Right Finger] Normal Respiratory Rate 18 20 18 Respiratory Effort / Characteristics Non-Labored Spontaneous Respiratory Depth Normal Respiratory Pattern Regular Blood Pressure 156/98 H Blood Pressure [Left Arm] 115/62 119/63 Blood Pressure Mean 117 Blood Pressure Mean [Left Arm] 79 81 Blood Pressure Position [Left Arm] Right Lateral Pulse Oximetry 96 95 97 Oxygen Delivery Method Room Air Room Air Room Air Sepsis Recent Fever Within 48 Hours No Sepsis New/Unexplained Change in Mental Status No Sepsis Action Taken by Nursing No Action Required Home Medications Current Medication List: was personally reviewed by me Laboratory Data Attestation: I reviewed the patient's lab results. Result diagrams: 11/28/20 14:10 11/28/20 14:10 Lab Results 11/28/20 11/28/20 11/28/20 Range/Units 12:35 13:45 13:45 WBC (4.8-10.8) K/uL RBC (4.7-6.1) M/uL Hgb (14.0-18.0) g/dL Hct (42-52) % MCV (80-100) fL MCH (25-34) pg MCHC (32-36) g/dL RDW Std Deviation (36.4-46.3) fL RDW Coeff of Black (11.5-14.5) % Plt Count (130-400) K/uL MPV (7.4-10.4) fL Immature Gran % (Auto) % Neut % (Auto) % Lymph % (Auto) % [place] % (Auto) % Eos % (Auto) % Baso % (Auto) % Neut # (Auto) (1.4-6.5) K/uL Lymph # (Auto) (1.2-3.4) K/uL [place] # (Auto) (0.11-0.59) K/uL Eos # (Auto) (0-0.5) K/uL Baso # (Auto) (0-0.2) K/uL Immature Gran # (Auto) (0.00-0.02) K/uL Sodium (136-145) mmol/L Potassium (3.5-5.1) mmol/L Chloride (98-107) mmol/L Carbon Dioxide (21-32) mmol/L Anion Gap (3-11) BUN (7-18) mg/dl Creatinine (0.6-1.4) mg/dl Est Cr Clr Drug Dosing ml/min Est GFR ( Amer) Est GFR (Non-Af Amer) BUN/Creatinine Ratio (10-20) Glucose (70-99) mg/dl POC Glucose (70-99) mg/dl Calcium (8.5-10.1) mg/dl Total Bilirubin (0.2-1) mg/dl AST (15-37) U/L ALT (12-78) U/L Alkaline Phosphatase (45-117) U/L Total Protein (6.4-8.2) gm/dl Albumin (3.4-5.0) gm/dl Globulin (2.5-4.0) gm/dl Albumin/Globulin Ratio (0.9-2) COVID-19 Eval Order Covid19 IDNow [facility] SARS-CoV-2, RNA, NAAT NEGATIVE (NEGATIVE) Group A Strep (PCR) DETECTED A (NotDetected) 11/28/20 11/28/20 11/28/20 Range/Units 14:10 14:10 14:35 WBC 11.99 H (4.8-10.8) K/uL RBC 5.22 (4.7-6.1) M/uL Hgb 14.7 (14.0-18.0) g/dL Hct 43.7 (42-52) % MCV 83.7 (80-100) fL MCH 28.2 (25-34) pg MCHC 33.6 (32-36) g/dL RDW Std Deviation 44.5 (36.4-46.3) fL RDW Coeff of Black 14.3 (11.5-14.5) % Plt Count 276 (130-400) K/uL MPV 10.1 (7.4-10.4) fL Immature Gran % (Auto) 0.2 % Neut % (Auto) 71.2 % Lymph % (Auto) 19.2 % [place] % (Auto) 7.7 % Eos % (Auto) 1.4 % Baso % (Auto) 0.3 % Neut # (Auto) 8.54 H (1.4-6.5) K/uL Lymph # (Auto) 2.30 (1.2-3.4) K/uL [place] # (Auto) 0.92 H (0.11-0.59) K/uL Eos # (Auto) 0.17 (0-0.5) K/uL Baso # (Auto) 0.04 (0-0.2) K/uL Immature Gran # (Auto) 0.02 (0.00-0.02) K/uL Sodium 139 (136-145) mmol/L Potassium 3.6 (3.5-5.1) mmol/L Chloride 106 (98-107) mmol/L Carbon Dioxide 27 (21-32) mmol/L Anion Gap 6.0 (3-11) BUN 7 (7-18) mg/dl Creatinine 0.78 (0.6-1.4) mg/dl Est Cr Clr Drug Dosing 244.4 ml/min Est GFR ( Amer) 133.7 Est GFR (Non-Af Amer) 115.3 BUN/Creatinine Ratio 9.2 L (10-20) Glucose 85 (70-99) mg/dl POC Glucose 95 (70-99) mg/dl Calcium 9.0 (8.5-10.1) mg/dl Total Bilirubin 0.3 (0.2-1) mg/dl AST 11 L (15-37) U/L ALT 32 (12-78) U/L Alkaline Phosphatase 89 (45-117) U/L Total Protein 8.2 (6.4-8.2) gm/dl Albumin 3.4 (3.4-5.0) gm/dl Globulin 4.8 H (2.5-4.0) gm/dl Albumin/Globulin Ratio 0.7 L (0.9-2) COVID-19 Eval Order SARS-CoV-2, RNA, NAAT (NEGATIVE) Group A Strep (PCR) (NotDetected) Administered Medications Discontinued Medications Acetaminophen (Acetaminophen 500 Mg Tab) 1,000 mg PO NOW STA Stop: 11/28/20 12:59 Last Admin: 11/28/20 14:09 Dose: Not Given Documented by: [id number] Dexamethasone (Dexamethasone Sod Inj 10 Mg/Ml Vial) 10 mg PO NOW STA Stop: 11/28/20 12:59 Last Admin: 11/28/20 14:09 Dose: 10 mg Documented by: [id number] Sodium Chloride (Nss 1000ml) 1,000 mls @ 999 mls/hr IV .Q1H1M ONE Stop: 11/28/20 13:58 Last Admin: 11/28/20 14:09 Dose: 999 mls/hr Documented by: [id number] Clindamycin Phosphate 900 mg/ (Dextrose) 56 mls @ 112 mls/hr IV ONE ONE Stop: 11/28/20 13:40 Last Admin: 11/28/20 14:09 Dose: 112 mls/hr Documented by: [id number] Discharge Plan Visit Data Chief Complaint: Sore Throat Stated Complaint: SORE THROAT, ITCHY THROAT, HARD TO SWALLOW ED Provider: Ney Rubalcava Discharge Problem: Abscess, peritonsillar, Strep pharyngitis Patient Disposition: Still a Patient Discharge Instructions Interventions: ED Discharge Assessment Last Done: 11/28/20 14:15
[2020-11-28] MEDS ORDERED: DEXAMETHASONE SOD INJ 10 MG/ML VIAL PO STA (12:58)
[2020-11-28] MEDS ORDERED: ACETAMINOPHEN 500 MG TAB PO STA (12:58)
[2020-11-28] MEDS ORDERED: SODIUM CHLORIDE 0.9% 1000ML 1,000 ML IV ONE (12:58)
[2020-11-28] MEDS ORDERED: CLINDAMYCIN 900 MG in DEXTROSE 5% 50 ML IV ONE (13:11)
[2020-11-28] MEDS ORDERED: PROPOFOL IV EMULSION 10 MG/ML 20 ML VIAL IV ONE ×2 (14:01→14:02)
[2020-11-28] MEDS ORDERED: LIDOCAINE 2% 2 ML VIAL/AMP(20MG/ML) INFIL ONE (14:01)
[2020-11-28] MEDS ORDERED: fentaNYL citrate 100 MCG/2 ML VIAL ONE ×2 (14:01→15:24)
[2020-11-28] MEDS ORDERED: MIDAZOLAM HCL 1 MG/ML 2ML VIAL ONE (14:01)
[2020-11-28] MEDS ORDERED: SUCCINYLCHOLINE CHLORIDE 20 MG/ML 10 ML VIAL IV ONE (14:10)
[2020-11-28 14:19] LABS: Basophils # (auto) 0.04 K/uL (0-0.2); Basophils % (auto) 0.3 %; Eosinophils # (auto) 0.17 K/uL (0-0.5); Eosinophils % (auto) 1.4 %; Hematocrit (blood only) 43.7 % (42-52); Hemoglobin 14.7 g/dL (14.0-18.0); Immature Granulocytes # (auto) 0.02 K/uL (0.00-0.02); Immature Granulocytes % (auto) 0.2 %; Lymphocytes % (auto) 19.2 %; Mean Corpuscular Hemoglobin 28.2 pg (25-34); Mean Corpuscular Hgb Conc 33.6 g/dL (32-36); Mean Corpuscular Volume 83.7 fL (80-100); Mean Platelet Volume 10.1 fL (7.4-10.4); Monocytes # (auto) 0.92 K/uL (0.11-0.59); Monocytes % (auto) 7.7 %; Neutrophils # (auto) 8.54 K/uL (1.4-6.5); Neutrophils % (auto) 71.2 %; Platelet Count 276 K/uL (130-400); RDW Coefficient of Variation 14.3 % (11.5-14.5); RDW Standard Deviation 44.5 fL (36.4-46.3); Red Blood Count 5.22 M/uL (4.7-6.1); White Blood Count 11.99 K/uL (4.8-10.8)
--- NOTE | 2020-11-28 14:19 | History & Physical Report ---
Date of Service November 28, 2020 Assessment & Plan (1) Acute streptococcal tonsillitis: (2) Peritonsillar abscess determined by examination: And that this is a second recurrence within 1 month, I recommended tonsillectomy au casey with I&D of left peritonsillar abscess. I explained the risk and implications of doing the combined procedure. It will be painful but it will save him from having to come back for the tonsillectomy at a later date. The patient considered and agreed to proceed with the procedure. Here appears to understand. History of Present Illness Chief Complaint: Left-sided sore throat. Primary Care Provider: Elliot Benites DO This 35-year-old male has had left peritonsillar abscess drained by me 3 weeks ago. He again developed sore throat this a.m. which became progressively worse and has erythema and swelling around the left soft palate. Allergies Allergy/AdvReac Type Severity Reaction Status Date / Time aspirin Allergy Unknown Unknown Verified 11/05/20 05:33 Bactrim Allergy Unknown . Verified 02/01/18 00:10 Cephalosporins Allergy Unknown Unknown Verified 11/05/20 05:33 Penicillins Allergy Unknown Unknown Verified 11/05/20 05:33 Sulfa (Sulfonamide Allergy Unknown Unknown Verified 11/05/20 05:33 Antibiotics) sulfamethoxazole Allergy Unknown Unknown Verified 11/05/20 05:33 trimethoprim Allergy Unknown Unknown Verified 11/05/20 05:33 Home Medications Medication Instructions Recorded Confirmed Type Lantus Solostar U-100 Insulin 50 unit SUBCUT BID 11/05/20 11/06/20 History cyclobenzaprine 5 mg PO TID PRN 11/06/20 11/06/20 History famotidine 20 mg PO BID 11/06/20 11/06/20 History Past Med/Surg History Medical History (Updated 11/28/20 @ 14:17 by Simona Mendes MD) ADD (attention deficit disorder) Asthma, exercise induced Bipolar I disorder Depression Diabetes mellitus with hyperosmolarity without hyperglycemic hyperosmolar nonketotic coma Diabetes mellitus, type II Discharge planning issues DVT prophylaxis Morbid obesity MRSA (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 Skin ulcer Tobacco use disorder Surgical History S/P appendectomy Family History Mother Hypertension Father Coronary heart disease Diabetes Brother Diabetes Social History Smoking Status: Never smoker Second Hand Exposure: No; Preferred Language: Urdu Communication Ability: Unable Visual Impairment: No Limitations Hearing Ability: Normal Mechanical System Technician Required: No Beliefs That Will Affect Care: None Current Living Situation: Family Current Living Situation Comment: unable to obtain Feels Safe at Home: Yes Assistive Devices: BiPap and Oxygen - Continuous Physical Exam Constitutional: + morbidly obese Eyes: PERRL, conjunctivae normal, anicteric sclerae ENMT: Mouth: + oropharynx abnormality (Left tonsil exudate, erythema soft palate and swelling) Neck: trachea midline, no thyromegaly Respiratory: normal respiratory effort, lungs clear to auscultation Cardiovascular: RRR, no murmur, no edema Results & Data Results & Data ([facility]) Vital Signs (Past 12 Hours) Vital Signs Temp Pulse Resp BP Pulse Ox 11/28/20 11:52 36.4 C L 101 H 18 156/98 H 96 PG Care Time/CCT Total # of Minutes Spent Total Time Spent with Patient: Total time spent is greater than 50% in coordination of care (as documented) at patient's floor/unit and/or counseling patient: Coding Level of Care Code None Diagnoses Acute streptococcal tonsillitis J03.00 Peritonsillar abscess determined by examination J36
--- NOTE | 2020-11-28 14:30 | Anesthesiology Consultation ---
Date of Service November 28, 2020 Assessment & Plan (1) Encounter for pre-operative examination: Chart Review Chart Review: Acceptable Risk for Surgery History Surgery Operation Date: 11/28/20 07:55 Proposed Procedures p Left Tonsillectomy with Incision and Drainage of Peritonsillar Abscess, Recurrent - Simona Mendes MD Height/Weight Height: 6 ft 4 in Weight: 203 kg Allergies Allergy/AdvReac Type Severity Reaction Status Date / Time aspirin Allergy Unknown Unknown Verified 11/05/20 05:33 Bactrim Allergy Unknown . Verified 02/01/18 00:10 Cephalosporins Allergy Unknown Unknown Verified 11/05/20 05:33 Penicillins Allergy Unknown Unknown Verified 11/05/20 05:33 Sulfa (Sulfonamide Allergy Unknown Unknown Verified 11/05/20 05:33 Antibiotics) sulfamethoxazole Allergy Unknown Unknown Verified 11/05/20 05:33 trimethoprim Allergy Unknown Unknown Verified 11/05/20 05:33 Medications Home Medications Medication Instructions Recorded Confirmed Last Taken Lantus Solostar U-100 Insulin 50 unit SUBCUT BID 11/05/20 11/06/20 Unknown cyclobenzaprine 5 mg PO TID PRN 11/06/20 11/06/20 Unknown famotidine 20 mg PO BID 11/06/20 11/06/20 Unknown NPO Date Last Intake of Fluids: 11/28/20 Time Last Intake of Fluids: 13:00 Date Last Intake of Solids: 11/27/20 Time Last Intake of Solids: 20:00 Past Medical History Medical History (Updated 11/28/20 @ 14:31 by Jairo Salazar MD) ADD (attention deficit disorder) Asthma, exercise induced Bipolar I disorder Depression Diabetes mellitus with hyperosmolarity without hyperglycemic hyperosmolar nonketotic coma Diabetes mellitus, type II Discharge planning issues DVT prophylaxis Morbid obesity MRSA (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 Skin ulcer Tobacco use disorder Past Family History Family History Mother Hypertension Father Coronary heart disease Diabetes Brother Diabetes Past Surgical History Surgical History S/P appendectomy Social History Smoking Status: Never smoker Physical Exam Vital Signs Last Vital Signs Temp 36.4 C L 11/28/20 11:52 Pulse 90 11/28/20 14:15 Resp 20 02/26/21 14:15 BP 115/62 11/28/20 14:15 Pulse Ox 95 11/28/20 14:15 Testing Laboratory Results 11/28/20 14:10 Laboratory Tests 11/07/20 11/09/20 04:34 05:53 Potassium 3.5 Creatinine 0.63 Hemoglobin A1c 9.5 H Covid test today negative
[2020-11-28] MEDS ORDERED: fentaNYL citrate 100 MCG/2 ML VIAL IV PRN (14:32)
[2020-11-28] MEDS ORDERED: ONDANSETRON INJ 2 MG/ML 2 ML VIAL IV PRN ×2 (14:32→16:39)
[2020-11-28] MEDS ORDERED: ATROPINE SULFATE 0.1 MG/ML 10ML SYR IV PRN (14:32)
[2020-11-28 14:37] LABS: Albumin Level 3.4 gm/dl (3.4-5.0); BUN Creatinine Ratio 9.2 (10-20); Creatinine Clr Calc Pharmacy 244.4 ml/min; Est GFR (African American) 133.7; Est GFR (Non-African American) 115.3; Potassium 3.6 mmol/L (3.5-5.1)
[2020-11-28 14:43] LABS: Albumin Globulin Ratio 0.7 (0.9-2); Bilirubin,Total 0.3 mg/dl (0.2-1); Globulin 4.8 gm/dl (2.5-4.0); Total Protein 8.2 gm/dl (6.4-8.2)
[2020-11-28] MEDS ORDERED: BUPIVACAINE/EPINEPHRINE 0.5% MPF 1:200,000 30 ML VIAL ONE (14:45)
[2020-11-28] MEDS ORDERED: CLINDAMYCIN PHOS 300 MG/2 ML VIAL ONE (15:16)
[2020-11-28] MEDS ORDERED: ONDANSETRON INJ 2 MG/ML 2 ML VIAL ONE (15:20)
[2020-11-28] MEDS ORDERED: DEXAMETHASONE SOD INJ 4 MG/ML VIAL ONE (15:42)
[2020-11-28] MEDS ORDERED: HYDROCODONE/ACETAMOPHEN 5/325MG TAB PO PRN (16:39)
--- NOTE | 2020-11-28 16:39 | Operative Report ---
PG Post Operative Report Pre & Post Diagnosis Operation Date: 11/28/20 07:55 Pre-Op Diagnosis: Acute streptococcal tonsillitis Left Peritonsillar abscess Post-Op Diagnosis: Acute streptococcal tonsillitis Left Peritonsillar abscess I identified the patient and participated in the time-out.: Yes Procedure Operation Date: 11/28/20 07:55 Actual Procedures p Tonsillectomy with Recurrent Left Incision and Drainage of Peritonsillar Abscess - Simona Mendes MD Surgeon Simona Mendes MD Chemical Educator None Estimated Blood Loss 35 Findings Consistent with Post-Op Diagnosis Specimens Tonsils Anesthesia Type General Complications none Disposition Accompanied Patient To Recovery: Yes Disposition: Recovery Room Indications 35-year-old gentleman with recurrent left peritonsillar abscess drained 3 weeks ago. Due to the recurrent nature we agreed to proceed with tonsillectomy at the same time as the incision and drainage. Description of Procedure He was brought to the operating room, properly identified, prepped and draped in usual sterile manner after general endotracheal anesthesia. The peritonsillar area were injected with 0.5% Marcaine with 1-2 1000 strength epinephrine. The soft palate was retracted using the red Ricardo catheter. The right tonsil was grasped with a tenaculum and excised using the Coblation device. This was a rather large tonsil. Hemostasis was controlled using the Coblation device. Attention was turned to the left side. This was was rather difficult due to the scar tissue from the I&D 3 weeks ago. The dissection with the Coblation device started at the superior pole but had to extend to the inferior pole coming around the inferior pole to elevate the tonsil. Finally with the abscess cavity located superiorly and posteriorly to the tonsil the abscess cavity was open, cultures were taken, and the scar tissue was lysed using the Coblation device removing the entire left tonsil. At this point the pharynx was irrigated clean with saline. Tonsillar sponges were used to isolate bleeding sites with light pressure and then lifting the tonsillar sponges and then cauterizing the bleeding sites with the Coblation device. He tolerated the procedure well was taken recovery area in satisfactory condition. I attest to the content of the Intraoperative Record and any orders documented therein. Any exceptions are noted below.
--- NOTE | 2020-11-28 16:42 | Anesthesiology Progress Note ---
Date of Service November 28, 2020 Anesthesia Post Procedure Vital Signs Vital Signs: Temp Pulse Pulse Pulse Resp BP BP 11/28/20 16:40 102 H 18 148/87 H 11/28/20 16:30 103 H 18 139/94 11/28/20 16:20 104 H 20 153/91 H 11/28/20 16:11 98.1 F 108 H 20 148/87 H 11/28/20 14:26 98.4 F 100 H 18 119/63 11/28/20 14:15 90 20 115/62 11/28/20 11:52 97.5 F L 101 H 18 156/98 H Pulse Ox 11/28/20 16:40 96 11/28/20 16:30 97 11/28/20 16:20 96 11/28/20 16:11 97 11/28/20 14:26 97 11/28/20 14:15 95 11/28/20 11:52 96 Transfer of Care Handoff Completed per policy Notes Mental Status: alert / awake / arousable and participated in evaluation Patient Amnestic to Procedure: Yes Nausea / Vomiting: adequately controlled Pain: adequately controlled Airway Patency, RR, SpO2: stable & adequate BP & HR: stable & adequate Hydration State: stable & adequate Anesthetic Complications: no major complications apparent and Pt Satisfied with anesthetic care
[2020-11-28] MEDS ORDERED: LACTATED RINGER'S 1,000 ML IV SCH (16:45)
[2020-11-28] MEDS ORDERED: GLUCAGON FOR INJ 1 MG VIAL IM PRN (17:45)
[2020-11-28] MEDS ORDERED: GLUCOSE 10 TABS/TUBE PO PRN ×2 (17:45→21:01)
[2020-11-28] MEDS ORDERED: GLUCOSE 40% GEL 15 GM TUBE PO PRN ×2 (17:45→21:01)
[2020-11-28] MEDS ORDERED: DEXTROSE 50% 50 ML SYRINGE IV PRN ×2 (17:45→21:01)
[2020-11-28] MEDS ORDERED: CARBOHYDRATES FOR HYPOGLYCEMIA PO PRN ×2 (17:45→21:01)
[2020-11-28] MEDS ORDERED: INSULIN ASPART 100 UNITS/ML 3 ML PEN SC ONE (20:51)
[2020-11-28] MEDS ORDERED: GLUCAGON FOR INJ 1 MG VIAL SQ PRN (21:01)
[2020-11-28] MEDS ORDERED: POTASSIUM CHLORIDE 40 MEQ in SODIUM CHLORIDE 0.9% 1000ML 1,000 ML IV ONE (21:08)
[2020-11-28] MEDS: INSULIN GLARGINE SOLOSTAR 100 UNITS/ML 3 ML PEN SQ SCH (21:13)
[2020-11-28] MEDS: INSULIN ASPART 100 UNITS/ML 3 ML PEN SC SCH (21:57)
--- NOTE | 2020-11-28 23:20 | Hospitalist Consultation ---
Date of Consultation November 28, 2020 Assessment & Plan (1) Abscess, peritonsillar: Final Assessment and Recommendations as follows : Recurrent peritonsillar abscess status post tonsillectomy/I and D Patient currently comfortable postop. History DM 2, insulin requiring Postop BSG markedly elevated secondary to Decadron administration at the ER Suboptimal control as of recent outpatient hemoglobin A1c of 9.5 last November 2020 hypertension, slightly elevated Currently not on maintenance medications. Patient stopped lisinopril last year due to GI upset symptoms. mood disorder, at baseline ongoing tobacco abuse Continue Clindamycin course given possible sepsis Continue basal insulin and adjust as needed, ISS BG goal [id number], carb count coverage Monitor BP, initiate Losartan if persistently elevated. Nicotine patch PRN DVT prophylaxis. SCDs Recommend pharmacologic anticoagulation with Lovenox 40 mg SQ daily once bleeding risk is deemed to be minimal and negligible pending ENT postop evaluation in a.m. Thank you very much for this consultation. Dr. Nix will follow patient's progress. Text document was generated using [employer] voice recognition software. It may contain grammatical or spelling errors. Kindly contact undersigned for clarification of any documentation item in question. History of Present Illness Reason for Consultation: Hyperglycemia/medical management Requesting Physician: Dr. Mendes Attending Physician: Simona Mendes MD History of Present Illness History obtained from patient, family, and records. Medical history significant for DM 2, insulin requiring, hypertension, mood disorder, history of MRSA as per records, ongoing tobacco abuse. Recent confinement 3 weeks ago for airway obstruction secondary to left peritonsillar abscess status post intubation. Patient underwent peritonsillar abscess incision and drainage. Discharged on clindamycin course. Patient woke up this morning with achy sore throat symptoms more in the left with odynophagia. Dysphagia symptoms noted yesterday as per patient. No chest pain, no S OB, no fever, no chills. Dry cough symptoms. At the ER, patient noted to have recurrent left peritonsillar abscess. Patient received Decadron and clindamycin at the ER. Patient subsequently admitted by ENT service. Patient underwent emergent tonsillectomy and I&D of left peritonsillar abscess. Patient currently comfortable on the floor. BSGs noted to be 300s postop. As per patient, usual BSGs 100-2 100s at home. No recent hypoglycemic episodes. 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 Verified 02/01/18 00:10 Cephalosporins Allergy Unknown Unknown Verified 11/28/20 14:34 Penicillins Allergy Unknown Unknown Verified 11/28/20 14:34 Sulfa (Sulfonamide Allergy Unknown Unknown Verified 11/28/20 14:34 Antibiotics) sulfamethoxazole Allergy Unknown Unknown Verified 11/28/20 14:34 trimethoprim Allergy Unknown Unknown Verified 11/28/20 14:34 lisinopril AdvReac Mild gi upset Verified 11/28/20 23:39 as per px Home Medications Medication Instructions Recorded Confirmed Type Lantus Solostar U-100 Insulin 50 unit SUBCUT BID 11/05/20 11/06/20 History cyclobenzaprine 5 mg PO TID PRN 11/06/20 11/06/20 History famotidine 20 mg PO BID 11/06/20 11/06/20 History Patient History Medical History (Updated 11/28/20 @ 14:48 by Ney Rubalcava MD) ADD (attention deficit disorder) Asthma, exercise induced Bipolar I disorder Depression Diabetes mellitus with hyperosmolarity without hyperglycemic hyperosmolar nonketotic coma Diabetes mellitus, type II Discharge planning issues DVT prophylaxis Morbid obesity MRSA (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 Skin ulcer Tobacco use disorder Surgical History S/P appendectomy Family History Mother Hypertension Father Coronary heart disease Diabetes Brother Diabetes Social History Smoking Status: Current every day smoker Second Hand Exposure: No; Hx Substance Use: No Preferred Language: Uzbek Communication Ability: Unable Visual Impairment: No Limitations Hearing Ability: Normal Tobacco Blender Required: No Beliefs That Will Affect Care: None Current Living Situation: Family Other Information That Helps Us Care for You: No Feels Safe at Home: Yes Assistive Devices: None Review of Systems Review of Systems: As per HPI, all 10 systems reviewed, all other ROS negative Physical Exam Physical Exam: GENERAL: Comfortable, morbidly obese, lying down on the right lateral decubitus position, pleasant, no respiratory distress, hot potato voice SKIN: Normal color, warm HEENT: [place] palpebral conjunctivae, no ptosis, moist buccal mucosa NECK : Supple, short neck, no tenderness CHEST : Decreased breath sounds , no tenderness HEART : RRR, no obvious murmurs ABDOMEN: distention, nontender EXTREMITIES : Minimal LE swelling, no LE tenderness, no other conspicuous deformities noted NEUROLOGIC : Coherent, no facial asymmetry, no other gross focality Results & Data Results & Data ([facility]) Vital Signs (Past 12 Hours) Vital Signs Temp Pulse Pulse Pulse Pulse Resp BP 11/28/20 22:28 36.4 C L 85 18 11/28/20 20:20 36.8 C 85 18 11/28/20 19:20 36.6 C 96 H 18 11/28/20 18:50 36.8 C 88 18 11/28/20 18:20 37.3 C 95 H 20 11/28/20 17:54 36.8 C 97 H 97 H 22 11/28/20 17:20 37.3 C 102 H 20 11/28/20 17:00 100 H 18 11/28/20 16:50 36.7 C 103 H 18 11/28/20 16:40 102 H 18 11/28/20 16:30 103 H 18 11/28/20 16:20 104 H 20 11/28/20 16:11 36.7 C 108 H 20 11/28/20 14:26 36.9 C 100 H 18 11/28/20 14:15 90 20 11/28/20 11:52 36.4 C L 101 H 18 156/98 H BP Pulse Ox 11/28/20 22:28 142/83 H 94 11/28/20 20:20 137/79 94 11/28/20 19:20 123/71 94 11/28/20 18:50 171/80 H 94 11/28/20 18:20 125/77 91 11/28/20 17:54 118/78 95 11/28/20 17:20 102/96 96 11/28/20 17:00 139/91 96 11/28/20 16:50 151/85 H 97 11/28/20 16:40 148/87 H 96 11/28/20 16:30 139/94 97 11/28/20 16:20 153/91 H 96 11/28/20 16:11 148/87 H 97 11/28/20 14:26 119/63 97 11/28/20 14:15 115/62 95 11/28/20 11:52 96 Laboratory Results Laboratory Results WBC 11.99 K/uL (4.8-10.8) H 11/28/20 14:10 RBC 5.22 M/uL (4.7-6.1) 11/28/20 14:10 Hgb 14.7 g/dL (14.0-18.0) 11/28/20 14:10 Hct 43.7 % (42-52) 11/28/20 14:10 MCV 83.7 fL (80-100) 11/28/20 14:10 MCH 28.2 pg (25-34) 11/28/20 14:10 MCHC 33.6 g/dL (32-36) 11/28/20 14:10 RDW Std Deviation 44.5 fL (36.4-46.3) 11/28/20 14:10 RDW Coeff of Black 14.3 % (11.5-14.5) 11/28/20 14:10 Plt Count 276 K/uL (130-400) 11/28/20 14:10 MPV 10.1 fL (7.4-10.4) 11/28/20 14:10 Immature Gran % (Auto) 0.2 % 11/28/20 14:10 Neut % (Auto) 71.2 % 11/28/20 14:10 Lymph % (Auto) 19.2 % 11/28/20 14:10 Milam % (Auto) 7.7 % 11/28/20 14:10 Eos % (Auto) 1.4 % 11/28/20 14:10 Baso % (Auto) 0.3 % 11/28/20 14:10 Neut # (Auto) 8.54 K/uL (1.4-6.5) H 11/28/20 14:10 Lymph # (Auto) 2.30 K/uL (1.2-3.4) 11/28/20 14:10 Milam # (Auto) 0.92 K/uL (0.11-0.59) H 11/28/20 14:10 Eos # (Auto) 0.17 K/uL (0-0.5) 11/28/20 14:10 Baso # (Auto) 0.04 K/uL (0-0.2) 11/28/20 14:10 Immature Gran # (Auto) 0.02 K/uL (0.00-0.02) 11/28/20 14:10 Sodium 139 mmol/L (136-145) 11/28/20 14:10 Potassium 3.6 mmol/L (3.5-5.1) 11/28/20 14:10 Chloride 106 mmol/L (98-107) 11/28/20 14:10 Carbon Dioxide 27 mmol/L (21-32) 11/28/20 14:10 Anion Gap 6.0 (3-11) 11/28/20 14:10 BUN 7 mg/dl (7-18) 11/28/20 14:10 Creatinine 0.78 mg/dl (0.6-1.4) 11/28/20 14:10 Est Cr Clr Drug Dosing 244.4 ml/min 11/28/20 14:10 Est GFR ( Amer) 133.7 11/28/20 14:10 Est GFR (Non-Af Amer) 115.3 11/28/20 14:10 BUN/Creatinine Ratio 9.2 (10-20) L 11/28/20 14:10 Glucose 85 mg/dl (70-99) 11/28/20 14:10 POC Glucose 333 mg/dl (70-99) H* 11/28/20 20:49 Calcium 9.0 mg/dl (8.5-10.1) 11/28/20 14:10 Total Bilirubin 0.3 mg/dl (0.2-1) 11/28/20 14:10 AST 11 U/L (15-37) L 11/28/20 14:10 ALT 32 U/L (12-78) 11/28/20 14:10 Alkaline Phosphatase 89 U/L (45-117) 11/28/20 14:10 Total Protein 8.2 gm/dl (6.4-8.2) 11/28/20 14:10 Albumin 3.4 gm/dl (3.4-5.0) 11/28/20 14:10 Globulin 4.8 gm/dl (2.5-4.0) H 11/28/20 14:10 Albumin/Globulin Ratio 0.7 (0.9-2) L 11/28/20 14:10 COVID-19 Eval Order Covid19 [facility] 11/28/20 13:45 SARS-CoV-2, RNA, NAAT NEGATIVE (NEGATIVE) 11/28/20 13:45 Group A Strep (PCR) DETECTED (NotDetected) A 11/28/20 12:35
[2020-11-29] MEDS ORDERED: CLINDAMYCIN CONSULT ACTIVE PRN (01:44)
[2020-11-29] MEDS: CLINDAMYCIN 300 MG in DEXTROSE 5% 50 ML IV SCH ×2 (02:04→07:50)
[2020-11-29 07:17] LABS: Basophils # (auto) 0.01 K/uL (0-0.2); Basophils % (auto) 0.1 %; Hematocrit (blood only) 41.1 % (42-52); Hemoglobin 13.8 g/dL (14.0-18.0); Immature Granulocytes # (auto) 0.02 K/uL (0.00-0.02); Immature Granulocytes % (auto) 0.2 %; Lymphocytes # (auto) 1.14 K/uL (1.2-3.4); Lymphocytes % (auto) 10.1 %; Mean Corpuscular Hemoglobin 27.7 pg (25-34); Mean Corpuscular Hgb Conc 33.6 g/dL (32-36); Mean Corpuscular Volume 82.5 fL (80-100); Monocytes # (auto) 0.68 K/uL (0.11-0.59); Neutrophils # (auto) 9.47 K/uL (1.4-6.5); Neutrophils % (auto) 83.6 %; Platelet Count 242 K/uL (130-400); Red Blood Count 4.98 M/uL (4.7-6.1); White Blood Count 11.32 K/uL (4.8-10.8)
[2020-11-29 07:52] LABS: BUN Creatinine Ratio 12.6 (10-20); Creatinine Clr Calc Pharmacy 307.5 ml/min; Est GFR (African American) 146.9; Est GFR (Non-African American) 126.7; Magnesium 2.2 mg/dl (1.8-2.4); Potassium 3.9 mmol/L (3.5-5.1)
--- NOTE | 2020-11-29 08:19 | Discharge Summary ---
Date of Service November 29, 2020 Admission HPI Per Admitting Provider This 35-year-old male has had left peritonsillar abscess drained by me 3 weeks ago. He again developed sore throat this a.m. which became progressively worse and has erythema and swelling around the left soft palate. Admission Exam (Per Admitting) Constitutional + morbidly obese Eyes PERRL, conjunctivae normal, anicteric sclerae ENMT Mouth: + oropharynx abnormality (left peritonsillar abcess) Neck trachea midline, no thyromegaly Respiratory normal respiratory effort, lungs clear to auscultation Cardiovascular RRR, no murmur, no edema Discharge Data Consultations 11/28/20 14:46 ED Decision to Admit Stat 11/28/20 20:54 Consult Hospitalist Routine Procedures Performed Operation Date: 11/28/20 07:55 Actual Procedures p Tonsillectomy with Recurrent Left Incision and Drainage of Peritonsillar Abscess - Simona Mendes MD Hospital Course (1) Abscess, peritonsillar: tonsillectomy au casey performed in OR, no complications Discharge Instructions see discharge
[2020-11-29] MEDS: INSULIN ASPART 100 UNITS/ML 3 ML PEN SC SCH (08:22)
[2020-11-29] MEDS: INSULIN GLARGINE SOLOSTAR 100 UNITS/ML 3 ML PEN SQ SCH (08:23)
[2020-11-29] MEDS ORDERED: ADVANCED PROBIOTIC 1250 MG CAPSULE PO SCH (09:00)
== END 2020-11-29 09:17 | disposition home or self-care (01) ==
LOC: ED 11:48 → 3W 14:15 → ASU 14:15

== ENCOUNTER 2021-01-28 18:20 | Inpatient (IN) ==
[2021-01-28] MEDS ORDERED: ERTAPENEM SODIUM 10 ML IV STA (18:36)
[2021-01-28] MEDS ORDERED: ACETAMINOPHEN 500 MG TAB PO STA (18:36)
--- NOTE | 2021-01-28 18:43 | Emergency Department Note ---
Impression & Plan Sepsis, Tachycardia, Leukocytosis, Fever ED Provider Note NAME: BENSON GARCIA AGE: 35 SEX: M : 1985 ARRIVES VIA: Ambulance INFORMANT: [Patient][ems] ED PROVIDER(S): [Alvaro Taylor MD] CHIEF COMPLAINT: Illness HISTORY OF PRESENT ILLNESS: The patient is a 35-year-old male who presents to the ED with flulike symptoms. The patient has been sick for 1 day, today. He felt okay yesterday. The patient has had fatigue, chills, fever. He has body aches. The patient states that he has had some chills. There is a slight stuffy nose. No sore throat, no nausea or vomiting. He still has his taste and smell. 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 The patient has had a very mild cough, he is not short of breath. BSG as per the EMS crew was in the 300s. This is somewhat high for the patient. REVIEW OF SYSTEMS: See HPI for pertinent positives and negatives. A total of ten systems were rev iewed and were otherwise negative. PMHx/PSHx: See Below SOCIAL HISTORY: See Below. PHYSICAL EXAM: GENERAL: Patient is in no acute distress. HEENT: No acute trauma, normocephalic atraumatic, mucous membranes moist, no nasal congestion, no scleral icterus. No throat erythema or exudate. No uvular edema. NECK: No stridor, no adenopathy, no meningismus, trachea is midline. LUNGS: Clear to auscultation bilaterally, no wheeze, no rhonchi, breath sounds equal. No respiratory distress. HEART: Mildly tachycardic, regular rhythm, no murmurs. ABDOMEN: Soft, nontender, bowel sounds positive, no hernias, no peritonitis. There is an older healing midline abdominal wound, no signs of surrounding erythema or drainage EXTREMITIES: No cyanosis, trace bilateral pedal edema, full range of motion of all the joints without pain or difficulty, no signs for acute trauma. NEUROLOGIC: Oriented x 3, no acute motor or sensory deficits, no focal weakness. SKIN: No rash, no jaundice, no diaphoresis. DIFFERENTIAL DIAGNOSIS: Sepsis, UTI, pneumonia, metabolic abnormality, COVID-19, influenza, electrolyte abnormalities, cardiac sources, cellulitis, UTI, bacteremia, intracerebral event, toxicologic etiology, neurologic event, as well as other pathologies. EMERGENCY DEPARTMENT COURSE/PROCEDURES: ECG: Indication was tachycardia. The ECG shows a sinus tachycardia with a rate of 118. There is no ST elevation, no PVCs. The QTc is 434. Continuous Cardiac Monitoring: An order was placed for continuous cardiac monitoring. The monitor shows a rate of 113 with sinus tachycardia. Critical Care Note: I have personally spent 54 minutes of critical care time in the direct management of this patient. This includes bedside care, interpretation of diagnostic studies, and testing, discussion with consultants, patient, and family members, and other required patient management activities. This 54 minutes is in excess of all separately billable procedures. MEDICAL DECISION MAKING: There is a mild leukocytosis, this could be consistent with infection. There is a normal hemoglobin and platelet count. No coagulopathy. Sodium somewhat low at 133 but not in need of emergent correction. No kidney failure. Lactic acid level was not elevated making severe sepsis less likely. No worrisome liver enzyme elevation. Procalcitonin level was normal. Urinalysis shows some glucose, no signs of infection. Covid and influenza testing returned negative. Chest x-ray did not show pneumonia or CHF. On exam, the patient was tachycardic and febrile. He presented with flulike symptoms. The patient meets criteria for sepsis. The source at this point is not clear. He has a slowly healing midline abdominal wound which of course could be the source for bacteremia. The patient is in need of a hospital stay. Further work-up and care is required. During his ER stay, he was given IV saline, 1 L. He received oral Tylenol. Patient was given IV ertapenem as well as IV daptomycin. The patient is currently resting comfortably. He understands the need for a hospital stay. I did speak with the patient and case management. The on-call hospitalist was consulted. Past Med/Surg History Medical History Abscess, peritonsillar Acute streptococcal tonsillitis ADD (attention deficit disorder) Asthma, exercise induced Bipolar I disorder Depression Diabetes mellitus with hyperosmolarity without hyperglycemic hyperosmolar nonketotic coma Diabetes mellitus, type II Discharge planning issues DVT prophylaxis Morbid obesity MRSA (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 Seasonal allergies Skin ulcer Strep pharyngitis Tobacco use disorder Surgical History (Updated 12/17/20 @ 13:45 by Soha Moore MA) History of surgery on wrist History of tonsillectomy S/P appendectomy Family History (Updated 12/17/20 @ 13:46 by Soha Moore MA) Mother Hypertension Father Coronary heart disease Diabetes Brother Diabetes Other Allergies Asthma Cancer Hearing loss Heart disease No family history of adverse response to anesthesia No family history of bleeding disorder Social History Smoking Status: Current every day smoker Tobacco Type: Cigarettes Second Hand Exposure: No; Hx Substance Use: No Preferred Language: [place] Communication Ability: Unable Visual Impairment: No Limitations Hearing Ability: Normal Station Examiner Required: No Beliefs That Will Affect Care: None Current Living Situation: Family Feels Safe at Home: Yes Assistive Devices: None Allergies Allergies Allergy/AdvReac Type Severity Reaction Status Date / Time aspirin Allergy Unknown Unknown Verified 01/28/21 20:14 Bactrim Allergy Unknown . Verified 02/01/18 00:10 Cephalosporins Allergy Unknown Unknown Verified 01/28/21 20:14 Penicillins Allergy Unknown Unknown Verified 01/28/21 20:14 Sulfa (Sulfonamide Allergy Unknown Unknown Verified 01/28/21 20:14 Antibiotics) sulfamethoxazole Allergy Unknown Unknown Verified 01/28/21 20:14 trimethoprim Allergy Unknown Unknown Verified 01/28/21 20:14 lisinopril AdvReac Mild gi upset Verified 01/28/21 20:14 as per px Home Meds Home Medications Medication Instructions Recorded Confirmed Lantus Solostar U-100 Insulin 50 unit SUBCUT BID 11/05/20 01/28/21 cyclobenzaprine 5 mg PO TID PRN 11/06/20 01/28/21 Results & Data (ED) Vital Signs Vital Signs - 24 hr 01/28/21 18:25 01/28/21 18:29 01/28/21 18:57 Temperature 40.3 C H Temperature Source Oral Pulse Rate 116 H 113 H Pulse Rate from SpO2 Sensor Respiratory Rate 21 22 Respiratory Effort / Characteristics Non-Labored Spontaneous Non-Labored Spontaneous Respiratory Depth Normal Blood Pressure 159/110 H 159/110 H Blood Pressure Mean 126 126 Blood Pressure Position Sitting Pulse Oximetry 96 97 Oxygen Delivery Method Room Air Room Air Sepsis Recent Fever Within 48 Hours Yes Sepsis New/Unexplained Change in Mental Status N/A Sepsis Action Taken by Nursing Physician Notified 01/28/21 18:59 01/28/21 19:06 01/28/21 19:07 Temperature Temperature Source Pulse Rate 117 H Pulse Rate from SpO2 Sensor 116 H Respiratory Rate 24 Respiratory Effort / Characteristics Non-Labored Spontaneous Non-Labored Spontaneous Respiratory Depth Blood Pressure 163/92 H Blood Pressure Mean 115 Blood Pressure Position Pulse Oximetry 97 98 Oxygen Delivery Method Room Air Sepsis Recent Fever Within 48 Hours Sepsis New/Unexplained Change in Mental Status Sepsis Action Taken by Nursing 01/28/21 19:15 01/28/21 19:30 01/28/21 19:36 Temperature Temperature Source Pulse Rate 115 H 117 H Pulse Rate from SpO2 Sensor 115 H 117 H Respiratory Rate 24 24 Respiratory Effort / Characteristics Non-Labored Spontaneous Respiratory Depth Blood Pressure 169/89 H 147/97 H Blood Pressure Mean 115 113 Blood Pressure Position Pulse Oximetry 94 95 Oxygen Delivery Method Sepsis Recent Fever Within 48 Hours Sepsis New/Unexplained Change in Mental Status Sepsis Action Taken by Nursing 01/28/21 19:45 01/28/21 20:00 01/28/21 20:19 Temperature Temperature Source Pulse Rate 117 H 126 H 117 H Pulse Rate from SpO2 Sensor 116 H 125 H 117 H Respiratory Rate 36 H 29 H 42 H Respiratory Effort / Characteristics Non-Labored Spontaneous Respiratory Depth Blood Pressure 120/82 136/77 126/94 Blood Pressure Mean 94 96 104 Blood Pressure Position Pulse Oximetry 94 96 94 Oxygen Delivery Method Sepsis Recent Fever Within 48 Hours Sepsis New/Unexplained Change in Mental Status Sepsis Action Taken by Nursing 01/28/21 20:30 01/28/21 20:45 01/28/21 21:00 Temperature Temperature Source Pulse Rate 115 H 115 H 113 H Pulse Rate from SpO2 Sensor 115 H 115 H 113 H Respiratory Rate 31 H 26 H 35 H Respiratory Effort / Characteristics Non-Labored Spontaneous Non-Labored Spontaneous Respiratory Depth Blood Pressure 156/92 H 138/84 120/58 L Blood Pressure Mean 113 102 78 Blood Pressure Position Pulse Oximetry 94 94 94 Oxygen Delivery Method Sepsis Recent Fever Within 48 Hours Sepsis New/Unexplained Change in Mental Status Sepsis Action Taken by Correction Medications Current Medication List: was personally reviewed by me Laboratory Data Attestation: I reviewed the patient's lab results. Result diagrams: 01/28/21 18:45 01/28/21 18:45 Lab Results 04/01/28/21 01/28/21 Range/Units 18:40 18:45 18:45 WBC 12.76 H (4.8-10.8) K/uL RBC 5.14 (4.7-6.1) M/uL Hgb 14.3 (14.0-18.0) g/dL Hct 41.9 L (42-52) % MCV 81.5 (80-100) fL MCH 27.8 (25-34) pg MCHC 34.1 (32-36) g/dL RDW Std Deviation 42.8 (36.4-46.3) fL RDW Coeff of Black 14.2 (11.5-14.5) % Plt Count 235 (130-400) K/uL MPV 10.2 (7.4-10.4) fL Immature Gran % (Auto) 0.3 % Neut % (Auto) 81.0 % Lymph % (Auto) 10.6 % [place] % (Auto) 7.2 % Eos % (Auto) 0.7 % Baso % (Auto) 0.2 % Neut # (Auto) 10.34 H (1.4-6.5) K/uL Lymph # (Auto) 1.35 (1.2-3.4) K/uL [place] # (Auto) 0.92 H (0.11-0.59) K/uL Eos # (Auto) 0.09 (0-0.5) K/uL Baso # (Auto) 0.02 (0-0.2) K/uL Immature Gran # (Auto) 0.04 H (0.00-0.02) K/uL PT 9.4 (9.0-12.0) Seconds INR 0.9 (0.9-1.1) APTT 23.9 (21.0-31.0) Seconds PTT Ratio 0.9 Sodium (136-145) mmol/L Potassium (3.5-5.1) mmol/L Chloride (98-107) mmol/L Carbon Dioxide (21-32) mmol/L Anion Gap (3-11) BUN (7-18) mg/dl Creatinine (0.6-1.4) mg/dl Est Cr Clr Drug Dosing ml/min Est GFR ( Amer) Est GFR (Non-Af Amer) BUN/Creatinine Ratio (10-20) Glucose (70-99) mg/dl Lactate (0.4-2.0) mmol/L Calcium (8.5-10.1) mg/dl Magnesium (1.8-2.4) mg/dl Total Bilirubin (0.2-1) mg/dl AST (15-37) U/L ALT (12-78) U/L Alkaline Phosphatase (45-117) U/L Total Protein (6.4-8.2) gm/dl Albumin (3.4-5.0) gm/dl Globulin (2.5-4.0) gm/dl Albumin/Globulin Ratio (0.9-2) Procalcitonin (0-0.5) ng/ml Urine Color Yellow Urine Appearance Clear (Clear) Urine pH 6.5 (4.5-7.5) Ur Specific [place] 1.026 (1.000-1.030) Urine Protein Negative (Negative) Urine Glucose (UA) 3+ H (Negative) Urine Ketones Trace H (Negative) Urine Blood 1+ H (Negative) Urine Nitrite Negative (Negative) Urine Bilirubin Negative (Negative) Urine Urobilinogen Negative (Negative) Ur Leukocyte Esterase Negative (Negative) Urine WBC (Auto) 1-5 (0-5) /hpf Urine RBC (Auto) 5-10 H (0-4) /hpf U Hyaline Cast (Auto) 1-5 (0-5) /lpf U Epithel Cells (Auto) 20-30 H (0-5) /lpf Urine Bacteria (Auto) Negative (Negative) COVID-19 Eval Order SARS-CoV-2 (PCR) (Negative) Influenza Type A (PCR) (Neg) Influenza Type B (PCR) (Neg) RSV (RT-PCR) (Neg) 01/28/21 01/28/21 01/28/21 Range/Units 18:45 18:45 18:45 WBC (4.8-10.8) K/uL RBC (4.7-6.1) M/uL Hgb (14.0-18.0) g/dL Hct (42-52) % MCV (80-100) fL MCH (25-34) pg MCHC (32-36) g/dL RDW Std Deviation (36.4-46.3) fL RDW Coeff of Black (11.5-14.5) % Plt Count (130-400) K/uL MPV (7.4-10.4) fL Immature Gran % (Auto) % Neut % (Auto) % Lymph % (Auto) % [place] % (Auto) % Eos % (Auto) % Baso % (Auto) % Neut # (Auto) (1.4-6.5) K/uL Lymph # (Auto) (1.2-3.4) K/uL [place] # (Auto) (0.11-0.59) K/uL Eos # (Auto) (0-0.5) K/uL Baso # (Auto) (0-0.2) K/uL Immature Gran # (Auto) (0.00-0.02) K/uL PT (9.0-12.0) Seconds INR (0.9-1.1) APTT (21.0-31.0) Seconds PTT Ratio Sodium 133 L (136-145) mmol/L Potassium 3.8 (3.5-5.1) mmol/L Chloride 99 (98-107) mmol/L Carbon Dioxide 29 (21-32) mmol/L Anion Gap 4.0 (3-11) BUN 15 (7-18) mg/dl Creatinine 0.89 (0.6-1.4) mg/dl Est Cr Clr Drug Dosing 215.1 ml/min Est GFR ( Amer) 126.6 Est GFR (Non-Af Amer) 109.2 BUN/Creatinine Ratio 17.4 (10-20) Glucose 249 H (70-99) mg/dl Lactate 1.5 (0.4-2.0) mmol/L Calcium 8.8 (8.5-10.1) mg/dl Magnesium 2.0 (1.8-2.4) mg/dl Total Bilirubin 0.5 (0.2-1) mg/dl AST 9 L (15-37) U/L ALT 29 (12-78) U/L Alkaline Phosphatase 94 (45-117) U/L Total Protein 7.4 (6.4-8.2) gm/dl Albumin 3.1 L (3.4-5.0) gm/dl Globulin 4.3 H (2.5-4.0) gm/dl Albumin/Globulin Ratio 0.7 L (0.9-2) Procalcitonin 0.22 (0-0.5) ng/ml Urine Color Urine Appearance (Clear) Urine pH (4.5-7.5) Ur Specific [place] (1.000-1.030) Urine Protein (Negative) Urine Glucose (UA) (Negative) Urine Ketones (Negative) Urine Blood (Negative) Urine Nitrite (Negative) Urine Bilirubin (Negative) Urine Urobilinogen (Negative) Ur Leukocyte Esterase (Negative) Urine WBC (Auto) (0-5) /hpf Urine RBC (Auto) (0-4) /hpf U Hyaline Cast (Auto) (0-5) /lpf U Epithel Cells (Auto) (0-5) /lpf Urine Bacteria (Auto) (Negative) COVID-19 Eval Order SARS-CoV-2 (PCR) (Negative) Influenza Type A (PCR) (Neg) Influenza Type B (PCR) (Neg) RSV (RT-PCR) (Neg) 01/28/21 01/28/21 Range/Units 18:50 18:50 WBC (4.8-10.8) K/uL RBC (4.7-6.1) M/uL Hgb (14.0-18.0) g/dL Hct (42-52) % MCV (80-100) fL MCH (25-34) pg MCHC (32-36) g/dL RDW Std Deviation (36.4-46.3) fL RDW Coeff of Black (11.5-14.5) % Plt Count (130-400) K/uL MPV (7.4-10.4) fL Immature Gran % (Auto) % Neut % (Auto) % Lymph % (Auto) % [place] % (Auto) % Eos % (Auto) % Baso % (Auto) % Neut # (Auto) (1.4-6.5) K/uL Lymph # (Auto) (1.2-3.4) K/uL [place] # (Auto) (0.11-0.59) K/uL Eos # (Auto) (0-0.5) K/uL Baso # (Auto) (0-0.2) K/uL Immature Gran # (Auto) (0.00-0.02) K/uL PT (9.0-12.0) Seconds INR (0.9-1.1) APTT (21.0-31.0) Seconds PTT Ratio Sodium (136-145) mmol/L Potassium (3.5-5.1) mmol/L Chloride (98-107) mmol/L Carbon Dioxide (21-32) mmol/L Anion Gap (3-11) BUN (7-18) mg/dl Creatinine (0.6-1.4) mg/dl Est Cr Clr Drug Dosing ml/min Est GFR ( Amer) Est GFR (Non-Af Amer) BUN/Creatinine Ratio (10-20) Glucose (70-99) mg/dl Lactate (0.4-2.0) mmol/L Calcium (8.5-10.1) mg/dl Magnesium (1.8-2.4) mg/dl Total Bilirubin (0.2-1) mg/dl AST (15-37) U/L ALT (12-78) U/L Alkaline Phosphatase (45-117) U/L Total Protein (6.4-8.2) gm/dl Albumin (3.4-5.0) gm/dl Globulin (2.5-4.0) gm/dl Albumin/Globulin Ratio (0.9-2) Procalcitonin (0-0.5) ng/ml Urine Color Urine Appearance (Clear) Urine pH (4.5-7.5) Ur Specific [place] (1.000-1.030) Urine Protein (Negative) Urine Glucose (UA) (Negative) Urine Ketones (Negative) Urine Blood (Negative) Urine Nitrite (Negative) Urine Bilirubin (Negative) Urine Urobilinogen (Negative) Ur Leukocyte Esterase (Negative) Urine WBC (Auto) (0-5) /hpf Urine RBC (Auto) (0-4) /hpf U Hyaline Cast (Auto) (0-5) /lpf U Epithel Cells (Auto) (0-5) /lpf Urine Bacteria (Auto) (Negative) COVID-19 Eval Order [facility]FluRsv at [facility] SARS-CoV-2 (PCR) NEGATIVE (Negative) Influenza Type A (PCR) Negative (Neg) Influenza Type B (PCR) Negative (Neg) RSV (RT-PCR) Negative (Neg) Administered Medications Discontinued Medications Acetaminophen (Acetaminophen 500 Mg Tab) 1,000 mg PO NOW STA Stop: 01/28/21 18:37 Last Admin: 01/28/21 18:48 Dose: 1,000 mg Documented by: [id number] Sodium Chloride (Nss 1000ml) 1,000 mls @ 999 mls/hr IV .[id number] DIANE Stop: 01/28/21 19:45 Last Admin: 01/28/21 18:49 Dose: 999 mls/hr Documented by: [id number] Ertapenem (Invanz) 10 mls @ 2 mls/min IV NOW STA Stop: 01/28/21 18:40 Last Admin: 01/28/21 18:48 Dose: 2 mls/min Documented by: [id number] Daptomycin 800 mg/ Syringe 16 mls @ 8 mls/min IV NOW ONE; Protocol Stop: 01/28/21 19:53 Last Admin: 01/28/21 22:17 Dose: 8 mls/min Documented by: [id number] Ioversol (Optiray 350 500ml) 98 ml IV ONCE ONE Stop: 01/28/21 21:52 Last Admin: 01/28/21 21:51 Dose: 98 ml Documented by: [id number] Oxycodone HCl (Oxycodone Hcl Ir 5 Mg Tab (Immediate Release)) 5 mg PO NOW STA Stop: 01/28/21 21:04 Last Admin: 01/28/21 22:17 Dose: 5 mg Documented by: [id number] Imaging Data Radiologist's Impression: Chest X-Ray 01/28/21 18:36 XR chest 1V portable CLINICAL HISTORY: SEPSIS COMPARISON STUDY: Chest radiograph November 06, 2020. FINDINGS: No pneumothorax or pleural effusion is noted. There is no lobar consolidation. No evidence for pulmonary edema. Cardiac size is at the upper limits of normal. Exam is compromised given portable technique. Bilateral airspace opacities shown on prior exam have resolved. IMPRESSION: No acute cardiopulmonary findings. ACT 112: Negative or not required by law. Electronically signed by: Stephan Ortiz M.D. 01/28/2021 7:14 PM Discharge Plan Visit Data Chief Complaint: Illness Stated Complaint: ILLNESS, CHILLS, FEVER ED Provider: Alvaro Taylor Discharge Problem: Sepsis, Tachycardia, Leukocytosis, Fever Patient Disposition: Admitted As Inpatient Condition: Fair Discharge Problem: Sepsis Qualifiers: Sepsis type: sepsis due to unspecified organism Sepsis acute organ dysfunction status: without acute organ dysfunction Qualified Code(s): A41.9 - Sepsis, unspecified organism Leukocytosis Qualifiers: Leukocytosis type: unspecified Qualified Code(s): D72.829 - Elevated white blood cell count, unspecified Fever Qualifiers: Fever type: unspecified Qualified Code(s): R50.9 - Fever, unspecified
[2021-01-28] MEDS ORDERED: SODIUM CHLORIDE 0.9% 1000ML 1,000 ML IV SCH (18:45)
[2021-01-28 19:03] LABS: Basophils # (auto) 0.02 K/uL (0-0.2); Basophils % (auto) 0.2 %; Eosinophils # (auto) 0.09 K/uL (0-0.5); Eosinophils % (auto) 0.7 %; Hematocrit (blood only) 41.9 % (42-52); Hemoglobin 14.3 g/dL (14.0-18.0); Immature Granulocytes # (auto) 0.04 K/uL (0.00-0.02); Immature Granulocytes % (auto) 0.3 %; Lymphocytes # (auto) 1.35 K/uL (1.2-3.4); Lymphocytes % (auto) 10.6 %; Mean Corpuscular Hemoglobin 27.8 pg (25-34); Mean Corpuscular Hgb Conc 34.1 g/dL (32-36); Mean Corpuscular Volume 81.5 fL (80-100); Mean Platelet Volume 10.2 fL (7.4-10.4); Monocytes # (auto) 0.92 K/uL (0.11-0.59); Monocytes % (auto) 7.2 %; Neutrophils # (auto) 10.34 K/uL (1.4-6.5); Platelet Count 235 K/uL (130-400); RDW Coefficient of Variation 14.2 % (11.5-14.5); RDW Standard Deviation 42.8 fL (36.4-46.3); Red Blood Count 5.14 M/uL (4.7-6.1); White Blood Count 12.76 K/uL (4.8-10.8)
[2021-01-28 19:10] LABS: Appearance Urine Clear (Clear); Bacteria Urine Automated Negative (Negative); Bilirubin Urine Negative (Negative); Blood Urine 1+ (Negative); Color Urine Yellow; Epithelial Cell Urine Auto 20-30 /lpf (0-5); Glucose Urine UA 3+ (Negative); Ketones Urine Trace (Negative); Leukocyte Esterase Urine Negative (Negative); Nitrite Urine Negative (Negative); Protein Urine Negative (Negative); Specific Gravity Urine 1.026 (1.000-1.030); Urobilinogen Urine Negative (Negative); pH Urine 6.5 (4.5-7.5)
[2021-01-28 19:13] LABS: INR 0.9 (0.9-1.1); Partial Thromboplastin Ratio 0.9; Partial Thromboplastin Time 23.9 Seconds (21.0-31.0); Prothrombin Time 9.4 Seconds (9.0-12.0)
--- NOTE | 2021-01-28 19:16 | XRay Report ---
XR chest 1V portable CLINICAL HISTORY: SEPSIS COMPARISON STUDY: Chest radiograph November 06, 2020. FINDINGS: No pneumothorax or pleural effusion is noted. There is no lobar consolidation. No evidence for pulmonary edema. Cardiac size is at the upper limits of normal. Exam is compromised given portabl e technique. Bilateral airspace opacities shown on prior exam have resolved. IMPRESSION: No acute cardiopulmonary findings. ACT 112: Negative or not required by law. Electronically signed by: Stephan Ortiz M.D. 01/28/2021 7:14 PM
[2021-01-28 19:20] LABS: Albumin Level 3.1 gm/dl (3.4-5.0); BUN Creatinine Ratio 17.4 (10-20); Calcium 8.8 mg/dl (8.5-10.1); Creatinine Clr Calc Pharmacy 215.1 ml/min; Est GFR (African American) 126.6; Est GFR (Non-African American) 109.2; Potassium 3.8 mmol/L (3.5-5.1)
[2021-01-28 19:23] LABS: Albumin Globulin Ratio 0.7 (0.9-2); Bilirubin,Total 0.5 mg/dl (0.2-1); Globulin 4.3 gm/dl (2.5-4.0); Total Protein 7.4 gm/dl (6.4-8.2)
[2021-01-28 19:43] LABS: Influenza A virus by PCR Negative (Neg); Influenza B virus by PCR Negative (Neg); RSV by PCR Negative (Neg); SARS CoV2 RNA(COVID-19) InHosp NEGATIVE (Negative)
[2021-01-28] MEDS ORDERED: DAPTOmycin 800 MG in SYRINGE 0 ML IV ONE (19:52)
[2021-01-28] MEDS ORDERED: oxyCODONE HCL IR 5 MG TAB (IMMEDIATE RELEASE) PO STA (21:03)
[2021-01-28] MEDS ORDERED: OPTIRAY 350 500ml IV ONE (21:51)
--- NOTE | 2021-01-28 22:37 | History and Physical Report ---
DATE OF ADMISSION: 01/28/2021 CHIEF COMPLAINT: Fever and body ache. HISTORY OF PRESENT ILLNESS: A 35-year-old male with past medical history significant for type 2 diabetes, diabetic polyneuropathy, hypertension, currently not on any medications, morbid obesity, history of bipolar disorder, depression, hx of peritonsillar abscess, who presents with fever and body aches starting today, Denies any cough, but for the ER physician when asking, he told he has some mild cough. Currently he says since coming to the ER, he is having headaches. Whenever he is having fever and chills, he is getting some blurred visions. He says his sugars were running in the 300s at home. Denies any earache, no runny nose, no sore throat. Appetite is good. No loss of sense of smell or taste. No dysphagia, no shortness of breath. Denies any chest pain, no abdominal pain, no diarrhea or constipation, no blood in stools or black stools. No hematuria, no burning micturition, no swelling in the legs, no rash. He has an open wound in the umbilical region. He said he had appendicitis. Since then in the umbilical region, he gets on and off open wound there. He thinks it is from the rubbing of his belt buckle, but there is no active drainage seen or any significant erythema surrounding the wound. The patient is having temp spike and tachycardia in the ER, but his lactic acid is okay. Mild white count is seen, but no lymphopenia is seen. COVID test was negative. Influenza A and B PCR, RSV test also negative. ALLERGIES: ANESTHETICS MARGE, ASPIRIN, CEPHALOSPORIN, PENICILLIN, SULFA ANTIBIOTICS. PAST MEDICAL HISTORY: As mentioned above. PAST SURGICAL HISTORY: Reconstruction of the right wrist in 2014, laparoscopic appendectomy in 2010, removal of deep support implant in 2016 and the patient also had left peritonsillar abscess drainage in 11/2020. MEDICATIONS: The patient is on Lantus 15 units b.i.d. and cyclobenzaprine 5 mg p.o. t.i.d. p.r.n. FAMILY HISTORY: Significant for brother has diabetes. Father has diabetes and heart disorder. Mother has hypertension. SOCIAL HISTORY: Lives with his fiancee. Smokes 1-2 cigarettes a day. Alcohol rarely. No drug use. REVIEW OF SYMPTOMS: As per HPI. Rest of the review of systems negative. PHYSICAL EXAMINATION: GENERAL: The patient is morbidly obese, not in acute distress, alert and oriented. VITAL SIGNS: Temperature T-max 40.3, pulse 115, respiratory rate 26, blood pressure 138/84, oxygen 94% on room air. HEENT: Pupils equal, round, reactive to light. Oral mucosa moist. No obvious oral lesions seen. NECK: No neck masses. No JVD seen. CARDIOVASCULAR: S1, S2 heard, tachycardia. No murmur, no gallop. RESPIRATORY SYSTEM: Normal AP diameter. No accessory muscle use. No wheezing, no crackles. ABDOMEN: Small open ulcer seen in the periumbilical region. No obvious swelling, erythema or drainage seen. Abdomen is soft. Bowel sounds present, nontender. No distention. CENTRAL NERVOUS SYSTEM: Cranial nerves II-XII grossly intact. Nonfocal. EXTREMITIES: No edema, no erythema. LABORATORY DATA: WBC 12.7, hemoglobin 14.3, hematocrit 41.9, platelets 235. PT 9.4, INR 0.9, APTT 23.9. Sodium 133, potassium 3.8, chloride 99, bicarbonate 29, BUN 15, creatinine 0.8, serum glucose 249. Lactate 1.5, calcium 8.8, magnesium 2, total bilirubin 0.5, AST 9, ALT 29, alkaline phosphatase 94. Procalcitonin 0.22. Urinalysis, +3 glucose, trace ketones. SARS-CoV-2 PCR negative. Influenza A and B PCR negative, RSV PCR negative. IMAGING: Chest x-ray: No acute cardiopulmonary findings. EKG: Sinus tachycardia, rate of 118, no significant change was found. ASSESSMENT AND PLAN: This is a 35-year-old male who presents with fever and body aches. 1. Fever, body aches. Meets criteria for sepsis with fever, tachycardia, elevated white count, but no obvious source is found. His SARS-CoV-2 PCR is negative. Influenza and RSV negative. Chest x-ray unremarkable. The patient is not short of breath, questionable cough, no loss of sense of smell or taste. Appetite is good. Has some headaches. The patient has a history of peritonsillar abscess, which was drained in November, but he does not have any symptoms currently. Emergency Room empirically started him on daptomycin and ertapenem. We will continue with daptomycin and meropenem, IV fluids. Lactate is normal at 1.5. Continue with IV fluid normal saline at 150 mL per hour. Closely monitor in med-telemetry. Follow the cultures. We will get a CT of the chest and CT of the abdomen and pelvis to rule out any underlying infection. Possible source is abdominal wound, though it does not seem to be currently active. We will follow the imaging study results and follow the cultures and continue with current antibiotics.Also can consider ct neck soft tissue. 2. Diabetes. Continue his Lantus plus insulin sliding scale. Follow the blood sugars. 3. Morbid obesity, needs counseling. 4. History of hypertension. The patient says his lisinopril was stopped by his family doctor. We will monitor the blood pressure in the hospital. 5. Deep venous thrombosis prophylaxis, Lovenox. DISPOSITION: Closely monitor in the med-tele. Level 1 full code. Expect discharge home and follow with family doctor. RAVI
[2021-01-28] MEDS ORDERED: MEROPENEM CONSULT ACITVE PRN ×2 (23:53)
[2021-01-28] MEDS ORDERED: POLYETHYLENE (MIRALAX) 17 GM PACK PO PRN (23:53)
[2021-01-28] MEDS ORDERED: NITROGLYCERIN SL 0.4 MG/TAB TAB SL PRN (23:53)
[2021-01-29] MEDS ORDERED: GLUCAGON FOR INJ 1 MG VIAL SQ PRN (00:15)
[2021-01-29] MEDS ORDERED: CARBOHYDRATES FOR HYPOGLYCEMIA PO PRN (00:15)
[2021-01-29] MEDS ORDERED: GLUCOSE 40% GEL 15 GM TUBE PO PRN (00:15)
[2021-01-29] MEDS ORDERED: GLUCOSE 10 TABS/TUBE PO PRN (00:15)
[2021-01-29] MEDS ORDERED: DEXTROSE 50% 50 ML SYRINGE IV PRN (00:15)
[2021-01-29] MEDS: ACETAMINOPHEN 325 MG TAB PO PRN ×4 (00:32→17:27)
[2021-01-29] MEDS: SODIUM CHLORIDE 0.9% 1000ML 1,000 ML IV SCH ×4 (00:37→22:26)
[2021-01-29] MEDS: MEROPENEM 1,000 MG in SYRINGE 0 ML IV SCH ×2 (01:01→09:44)
[2021-01-29 05:14] LABS: Basophils # (auto) 0.01 K/uL (0-0.2); Basophils % (auto) 0.1 %; Eosinophils # (auto) 0.05 K/uL (0-0.5); Eosinophils % (auto) 0.4 %; Hemoglobin 13.9 g/dL (14.0-18.0); Immature Granulocytes # (auto) 0.07 K/uL (0.00-0.02); Immature Granulocytes % (auto) 0.5 %; Lymphocytes # (auto) 1.25 K/uL (1.2-3.4); Lymphocytes % (auto) 9.4 %; Mean Corpuscular Hemoglobin 29.5 pg (25-34); Mean Corpuscular Hgb Conc 35.6 g/dL (32-36); Mean Corpuscular Volume 82.8 fL (80-100); Mean Platelet Volume 9.8 fL (7.4-10.4); Monocytes # (auto) 0.99 K/uL (0.11-0.59); Monocytes % (auto) 7.5 %; Neutrophils % (auto) 82.1 %; Platelet Count 178 K/uL (130-400); RDW Coefficient of Variation 14.1 % (11.5-14.5); RDW Standard Deviation 42.6 fL (36.4-46.3); Red Blood Count 4.71 M/uL (4.7-6.1); White Blood Count 13.27 K/uL (4.8-10.8)
[2021-01-29 05:36] LABS: BUN Creatinine Ratio 10.6 (10-20); Creatinine Clr Calc Pharmacy 211.2 ml/min; Est GFR (Non-African American) 108.7
[2021-01-29 06:17] LABS: Estimated Average Glucose 203 mg/dl; Hemoglobin A1C 8.7 % (4.5-5.6)
[2021-01-29] MEDS: ENOXAPARIN INJ 40 MG/0.4 ML SYR SQ SCH ×2 (07:45→20:42)
--- NOTE | 2021-01-29 07:49 | CT Scan Report ---
CHEST CT WITH CONTRAST CT DOSE: HISTORY: sepsis. cough? TECHNIQUE: Multiaxial CT images of the chest were performed following the intravenous administration of contrast. A dose lowering technique was utilized adhering to the principles of ALARA. COMPARISON: Chest CTA 06/09/2018. FINDINGS: No mediastinal or hilar lymphadenopathy. No pleural effusion or pneumothorax. Limited views of the upper abdomen demonstrate mild hepatic steatosis and a normal spleen. There is mild motion ar tifact within the lung bases. No focal lung consolidations to suggest pneumonia. Normal caliber thora cic aorta with no evidence for dissection. The heart is normal in size. The main pulmonary arteries a ppear patent. IMPRESSION: No significant abnormality identified within the chest. ACT 112: Negative or not required by law. Electronically signed by: David Herring M.D. 01/29/2021 7:47 AM
--- NOTE | 2021-01-29 07:56 | CT Scan Report ---
ABDOMEN AND PELVIS CT WITH IV CONTRAST CT DOSE: 3875.59 mGy.cm HISTORY: Acute sepsis with wound of the anterior abdominal wall sepsis, abdomnal wall wound TECHNIQUE: Multiaxial CT images of the abdomen and pelvis were performed following the IV administrat ion of 98 cc of Optiray, A dose lowering technique was utilized adhering to the principles of ALARA. COMPARISON STUDY: 08/14/2020 FINDINGS: The imaged inferior cardiac chambers are unremarkable. Respiratory motion artifact and regla ent body habitus limits the study. Clear lung bases. No pneumatosis or pneumoperitoneum. The spleen i s mildly enlarged measuring 13.9 cm. Hepatomegaly suggested hepatic steatosis. No evidence of cirrhos is. Mildly contracted gallbladder. The pancreas and adrenal glands are unremarkable. The kidneys are within normal limits. No hydronephrosis. Unremarkable urinary bladder and prostate. S mall fat filled left inguinal hernia. Aorta and IVC are unremarkable. There is no adenopathy. No joey l obstruction or bowel wall thickening. Mild fecal retention. Appendectomy. No ascites or mesenteric inflammation. Diastases recti. Mild skin thickening of the periumbilical tissues. No abscess. No acut e fracture. Mild degenerative changes of the lumbar spine. IMPRESSION: 1. No bowel obstruction or bowel wall thickening. 2. Hepatosplenomegaly with suggested hepatic steatosis. 3. Appendectomy. ACT 112: Negative or not required by law. The above report was generated using voice recognition software. It may contain grammatical, syntax o r spelling errors. Electronically signed by: Fermin Burns M.D. 01/29/2021 7:54 AM
[2021-01-29] MEDS: INSULIN GLARGINE SOLOSTAR 100 UNITS/ML 3 ML PEN SQ SCH ×2 (08:17→20:42)
[2021-01-29] MEDS: INSULIN ASPART 100 UNITS/ML 3 ML PEN SC SCH ×4 (08:18→20:41)
--- NOTE | 2021-01-29 08:38 | Hospitalist Progress Note ---
Date of Service January 29, 2021 Assessment & Plan (1) Sepsis: (2) Tachycardia: (3) Leukocytosis: (4) Fever: (5) Uncontrolled diabetes mellitus: (6) Bipolar I disorder: (7) Depression: (8) Diabetes mellitus, type II: (9) Tobacco use disorder: (10) ADD (attention deficit disorder): (11) Morbid obesity: Continue abx, no clear source of infection yet, WBCs up today, IS Labs checked ROS-No Headache, No Visual Changes, No Nausea, No Vomiting, No Fever, No Chills, No Neck Pain or Stiffness, No Chest Pain, No Palpitations, No SOB, No GLYNN, No Cough, No Sputum, No Wheezing, No Abdominal Pain, No Diarrhea, No Hematemesis, No Hemoptysis, No Unexpected Weight Loss, No Flank pain, No Melena, No Hematochezia, No Frequency, No Urgency, No Burning, No Hematuria, No Rashes, No Diaphoresis. Appetite is Normal Physical Exam Gen-AAO x 3, NAD, febrile, obese Head-NCAT, EOMI, PERRLA, Anicteric Sclera, No Posterior Pharyngeal Erythema Neck-Supple, No JVD, No Thyromegaly, No Masses, No LAD, No Bruits Lungs-Clear to Auscultation Bilaterally, No Rales, No Rhonchi, No Wheezing, No Crepitus Chest-No S4, +S1, +S2, No S3, No Murmurs, No Rubs, No Gallops, No Ectopy Abdomen-Soft, Bowel Sounds Present, Non Tender, Non Distended, No Hepatomegaly, No Splenomegaly, No Palpable Masses, No Rebound, No Rigidity, No Guarding Musculoskeletal-Full Range of Motion Bilaterally, No CVAT Extremities-No Cyanosis, No Clubbing, No Edema Nuero-Cranial Nerves II-XII grossly intact, Motor WNL, DTRs WNL, Strength WNL, Non Focal Psych-Normal Mood Admission and Anticipated Discharge Date Admission Date: January 28, 2021 Results & Data Results & Data ([facility]) Vital Signs (Past 12 Hours) Vital Signs Temp Pulse Pulse Resp BP BP BP 01/29/21 07:23 118 H 01/29/21 07:09 38.1 C H 107 H 22 100/71 01/29/21 03:50 37.2 C 97 H 20 118/64 01/28/21 23:45 39.6 C H 111 H 22 122/62 01/28/21 22:33 39.5 C H 01/28/21 22:31 121 H 21 139/92 01/28/21 22:20 113 H 34 H 126/83 01/28/21 21:15 116/63 01/28/21 21:00 113 H 35 H 120/58 L 01/28/21 20:45 115 H 26 H 138/84 Pulse Ox 01/29/21 07:23 01/29/21 07:09 94 01/29/21 03:50 93 01/28/21 23:45 92 01/28/21 22:33 01/28/21 22:31 94 01/28/21 22:20 95 01/28/21 21:15 92 01/28/21 21:00 94 01/28/21 20:45 94 (1) Sepsis Sepsis acute organ dysfunction status: without acute organ dysfunction Sepsis type: sepsis due to unspecified organism Qualified Code(s): A41.9 - Sepsis, unspecified organism (2) Leukocytosis Leukocytosis type: unspecified Qualified Code(s): D72.829 - Elevated white blood cell count, unspecified (3) Fever Fever type: unspecified Qualified Code(s): R50.9 - Fever, unspecified
[2021-01-29] MEDS: CYCLOBENZAPRINE HCL 5 MG TAB PO PRN (14:48)
[2021-01-29] MEDS: MEROPENEM 500 MG in SYRINGE 0 ML IV SCH ×2 (15:44→22:26)
--- NOTE | 2021-01-29 20:10 | Electrocardiogram Report ---
Test Reason : Blood Pressure : / mmHG Vent. Rate : 118 BPM Atrial Rate : 118 BPM P-R Int : 158 ms QRS Dur : 092 ms QT Int : 310 ms P-R-T Axes : 045 004 028 degrees QTc Int : 434 ms Sinus tachycardia Otherwise normal ECG When compared with ECG of 14-AUG-2020 16:55, No significant change was found Confirmed by Angel Pitts ([id number]) on 01/29/2021 8:10:01 PM Referred By: REFERRED SELF Confirmed By:Angel Pitts
[2021-01-29] MEDS ORDERED: DAPTOmycin 800 MG in SYRINGE 0 ML IV SCH (22:00)
[2021-01-30] MEDS: MEROPENEM 500 MG in SYRINGE 0 ML IV SCH ×4 (03:38→20:54)
[2021-01-30] MEDS: ACETAMINOPHEN 325 MG TAB PO PRN ×4 (04:17→20:54)
[2021-01-30] MEDS: SODIUM CHLORIDE 0.9% 1000ML 1,000 ML IV SCH (05:42)
[2021-01-30 06:28] LABS: Basophils # (auto) 0.02 K/uL (0-0.2); Basophils % (auto) 0.2 %; Eosinophils # (auto) 0.22 K/uL (0-0.5); Eosinophils % (auto) 2.3 %; Hematocrit (blood only) 39.2 % (42-52); Hemoglobin 13.4 g/dL (14.0-18.0); Immature Granulocytes # (auto) 0.04 K/uL (0.00-0.02); Immature Granulocytes % (auto) 0.4 %; Lymphocytes # (auto) 0.92 K/uL (1.2-3.4); Lymphocytes % (auto) 9.8 %; Mean Corpuscular Hgb Conc 34.2 g/dL (32-36); Mean Platelet Volume 10.2 fL (7.4-10.4); Monocytes # (auto) 0.67 K/uL (0.11-0.59); Monocytes % (auto) 7.1 %; Neutrophils # (auto) 7.51 K/uL (1.4-6.5); Neutrophils % (auto) 80.2 %; Platelet Count 168 K/uL (130-400); RDW Coefficient of Variation 14.1 % (11.5-14.5); RDW Standard Deviation 42.5 fL (36.4-46.3); Red Blood Count 4.78 M/uL (4.7-6.1); White Blood Count 9.38 K/uL (4.8-10.8)
[2021-01-30 07:05] LABS: Albumin Level 2.5 gm/dl (3.4-5.0); BUN Creatinine Ratio 13.4 (10-20); Creatinine Clr Calc Pharmacy 306.5 ml/min; Est GFR (African American) 146.9; Est GFR (Non-African American) 126.7; Potassium 3.6 mmol/L (3.5-5.1)
[2021-01-30 07:08] LABS: Albumin Globulin Ratio 0.6 (0.9-2); Bilirubin,Total 0.6 mg/dl (0.2-1); Total Protein 6.5 gm/dl (6.4-8.2)
[2021-01-30 08:00] LABS: Lyme Ab IgG w/WB Rflx Negative (Negative); Lyme Ab IgM w/WB Rflx Negative (Negative)
--- NOTE | 2021-01-30 08:15 | Hospitalist Progress Note ---
Date of Service January 30, 2021 Assessment & Plan (1) Sepsis: (2) Tachycardia: (3) Leukocytosis: (4) Fever: (5) Uncontrolled diabetes mellitus: (6) Bipolar I disorder: (7) Depression: (8) Diabetes mellitus, type II: (9) Tobacco use disorder: (10) ADD (attention deficit disorder): (11) Morbid obesity: Continue abx, no clear source of infection yet, WBCs normal now, Check Hepatitis and EBV panel, IS Labs checked ROS-No Headache, No Visual Changes, No Nausea, No Vomiting, No Fever, No Chills, No Neck Pain or Stiffness, No Chest Pain, No Palpitations, No SOB, No GLYNN, No Cough, No Sputum, No Wheezing, No Abdominal Pain, No Diarrhea, No Hematemesis, No Hemoptysis, No Unexpected Weight Loss, No Flank pain, No Melena, No Hematochezia, No Frequency, No Urgency, No Burning, No Hematuria, No Rashes, No Diaphoresis. Appetite is Normal Physical Exam Gen-AAO x 3, NAD, febrile, obese Head-NCAT, EOMI, PERRLA, Anicteric Sclera, No Posterior Pharyngeal Erythema Neck-Supple, No JVD, No Thyromegaly, No Masses, No LAD, No Bruits Lungs-Clear to Auscultation Bilaterally, No Rales, No Rhonchi, No Wheezing, No Crepitus Chest-No S4, +S1, +S2, No S3, No Murmurs, No Rubs, No Gallops, No Ectopy Abdomen-Soft, Bowel Sounds Present, Non Tender, Non Distended, No Hepatomegaly, No Splenomegaly, No Palpable Masses, No Rebound, No Rigidity, No Guarding Musculoskeletal-Full Range of Motion Bilaterally, No CVAT Extremities-No Cyanosis, No Clubbing, No Edema Nuero-Cranial Nerves II-XII grossly intact, Motor WNL, DTRs WNL, Strength WNL, Non Focal Psych-Normal Mood Admission and Anticipated Discharge Date Admission Date: January 28, 2021 Results & Data Results & Data ([facility]) Vital Signs (Past 12 Hours) Vital Signs Temp Pulse Pulse Resp BP BP Pulse Ox 01/30/21 07:52 96 H 01/30/21 07:14 37.2 C 97 H 18 148/86 H 94 04/30/21 04:31 38.4 C H 105 H 18 125/68 95 01/29/21 23:51 97 H 01/29/21 22:39 37.4 C 80 17 137/77 97 (1) Sepsis Sepsis acute organ dysfunction status: without acute organ dysfunction Sepsis type: sepsis due to unspecified organism Qualified Code(s): A41.9 - Sepsis, unspecified organism (2) Leukocytosis Leukocytosis type: unspecified Qualified Code(s): D72.829 - Elevated white blood cell count, unspecified (3) Fever Fever type: unspecified Qualified Code(s): R50.9 - Fever, unspecified
[2021-01-30] MEDS: INSULIN ASPART 100 UNITS/ML 3 ML PEN SC SCH ×4 (08:34→20:55)
[2021-01-30] MEDS: INSULIN GLARGINE SOLOSTAR 100 UNITS/ML 3 ML PEN SQ SCH ×2 (08:35→20:56)
[2021-01-30] MEDS: ENOXAPARIN INJ 40 MG/0.4 ML SYR SQ SCH ×2 (08:36→20:55)
[2021-01-30 09:25] LABS: Hepatitis B Surf Ag Rflx Conf Neg (Neg)
[2021-01-30 09:53] LABS: Hepatitis C IgG 13Yrs+Old_Rflx Neg (Neg)
[2021-01-30] MEDS: ONDANSETRON INJ 2 MG/ML 2 ML VIAL IV PRN (16:01)
[2021-01-30] MEDS: CYCLOBENZAPRINE HCL 5 MG TAB PO PRN (18:34)
[2021-01-30] MEDS: DAPTOmycin 800 MG in SYRINGE 0 ML IV SCH (20:54)
[2021-01-30] MEDS: DOXYCYCLINE HYCLATE 100 MG CAP PO SCH (21:09)
[2021-01-31] MEDS: ACETAMINOPHEN 325 MG TAB PO PRN ×3 (02:51→19:54)
[2021-01-31] MEDS: MEROPENEM 500 MG in SYRINGE 0 ML IV SCH ×4 (03:20→21:50)
[2021-01-31 06:28] LABS: Basophils # (auto) 0.01 K/uL (0-0.2); Basophils % (auto) 0.1 %; Eosinophils # (auto) 0.23 K/uL (0-0.5); Eosinophils % (auto) 2.9 %; Hematocrit (blood only) 39.7 % (42-52); Hemoglobin 13.7 g/dL (14.0-18.0); Immature Granulocytes # (auto) 0.04 K/uL (0.00-0.02); Immature Granulocytes % (auto) 0.5 %; Lymphocytes % (auto) 12.7 %; Mean Corpuscular Hemoglobin 28.2 pg (25-34); Mean Corpuscular Hgb Conc 34.5 g/dL (32-36); Mean Corpuscular Volume 81.7 fL (80-100); Mean Platelet Volume 9.9 fL (7.4-10.4); Monocytes # (auto) 0.54 K/uL (0.11-0.59); Monocytes % (auto) 6.9 %; Neutrophils # (auto) 6.03 K/uL (1.4-6.5); Neutrophils % (auto) 76.9 %; Platelet Count 149 K/uL (130-400); RDW Standard Deviation 42.5 fL (36.4-46.3); Red Blood Count 4.86 M/uL (4.7-6.1); White Blood Count 7.85 K/uL (4.8-10.8)
[2021-01-31 06:49] LABS: Albumin Level 2.4 gm/dl (3.4-5.0); BUN Creatinine Ratio 12.8 (10-20); Calcium 7.8 mg/dl (8.5-10.1); Creatinine Clr Calc Pharmacy 287.7 ml/min; Est GFR (African American) 143.2; Est GFR (Non-African American) 123.5; Potassium 3.8 mmol/L (3.5-5.1)
[2021-01-31 06:51] LABS: Albumin Globulin Ratio 0.5 (0.9-2); Bilirubin,Total 0.7 mg/dl (0.2-1); Globulin 4.5 gm/dl (2.5-4.0); Total Protein 6.9 gm/dl (6.4-8.2)
[2021-01-31] MEDS: INSULIN ASPART 100 UNITS/ML 3 ML PEN SC SCH ×4 (08:00→21:01)
[2021-01-31] MEDS: INSULIN GLARGINE SOLOSTAR 100 UNITS/ML 3 ML PEN SQ SCH ×2 (08:00→22:13)
[2021-01-31] MEDS: ENOXAPARIN INJ 40 MG/0.4 ML SYR SQ SCH ×2 (08:01→21:49)
[2021-01-31] MEDS: DOXYCYCLINE HYCLATE 100 MG CAP PO SCH (08:01)
--- NOTE | 2021-01-31 08:02 | Hospitalist Progress Note ---
Date of Service January 31, 2021 Assessment & Plan (1) Sepsis: (2) Tachycardia: (3) Leukocytosis: (4) Fever: (5) Uncontrolled diabetes mellitus: (6) Bipolar I disorder: (7) Depression: (8) Diabetes mellitus, type II: (9) Tobacco use disorder: (10) ADD (attention deficit disorder): (11) Morbid obesity: Continue abx, no clear source of infection yet, WBCs normal now, Hepatitis panel is negative, Lyme and EBV pending, IS, CTC Labs checked ROS-No Headache, No Visual Changes, No Nausea, No Vomiting, No Fever, No Chills, No Neck Pain or Stiffness, No Chest Pain, No Palpitations, No SOB, No GLYNN, No Cough, No Sputum, No Wheezing, No Abdominal Pain, No Diarrhea, No Hematemesis, No Hemoptysis, No Unexpected Weight Loss, No Flank pain, No Melena, No Hematochezia, No Frequency, No Urgency, No Burning, No Hematuria, No Rashes, No Diaphoresis. Appetite is Normal Physical Exam Gen-AAO x 3, NAD, febrile, obese Head-NCAT, EOMI, PERRLA, Anicteric Sclera, No Posterior Pharyngeal Erythema Neck-Supple, No JVD, No Thyromegaly, No Masses, No LAD, No Bruits Lungs-Clear to Auscultation Bilaterally, No Rales, No Rhonchi, No Wheezing, No Crepitus Chest-No S4, +S1, +S2, No S3, No Murmurs, No Rubs, No Gallops, No Ectopy Abdomen-Soft, Bowel Sounds Present, Non Tender, Non Distended, No Hepatomegaly, No Splenomegaly, No Palpable Masses, No Rebound, No Rigidity, No Guarding Musculoskeletal-Full Range of Motion Bilaterally, No CVAT Extremities-No Cyanosis, No Clubbing, No Edema Nuero-Cranial Nerves II-XII grossly intact, Motor WNL, DTRs WNL, Strength WNL, Non Focal Psych-Normal Mood Admission and Anticipated Discharge Date Admission Date: January 28, 2021 Results & Data Results & Data ([facility]) Vital Signs (Past 12 Hours) Vital Signs Temp Pulse Resp BP Pulse Ox 01/31/21 07:34 36.9 C 87 18 147/84 H 93 01/31/21 04:45 36.8 C 01/31/21 03:18 38.7 C H 01/31/21 02:46 39.5 C H 113 H 18 132/75 95 01/30/21 23:19 37.1 C 102 H 20 110/70 93 (1) Sepsis Sepsis acute organ dysfunction status: without acute organ dysfunction Sepsis type: sepsis due to unspecified organism Qualified Code(s): A41.9 - Sepsis, unspecified organism (2) Leukocytosis Leukocytosis type: unspecified Qualified Code(s): D72.829 - Elevated white blood cell count, unspecified (3) Fever Fever type: unspecified Qualified Code(s): R50.9 - Fever, unspecified
[2021-01-31] MEDS ORDERED: CYCLOBENZAPRINE HCL 5 MG TAB PO PRN (08:45)
--- NOTE | 2021-01-31 09:10 | CT Scan Report ---
CT chest diagnostic wo con CLINICAL HISTORY: Sepsis. Cough. Fever of unknown origin. COMPARISON STUDY: 01/28/2021 CT DOSE: 1381.13 mGy.cm TECHNIQUE: CT of the thorax was performed from the thoracic inlet to the lung bases. Images are revi ewed in the axial, sagittal, and coronal planes. IV contrast was not administered for this examinatio n. A dose lowering technique was utilized adhering to the principles of ALARA. FINDINGS: Thyroid: Imaged portions of the thyroid gland are normal in appearance. Thoracic aorta: The thoracic aorta is normal in course and caliber, noting standard 3 vessel arch satya nilson. Heart: The heart is normal in size and configuration, without pericardial effusion. Lungs and pleural spaces: There are no pleural effusions. There is no focal pulmonary consolidation. Mediastinum: There is no evidence of pathologic mediastinal lymphadenopathy. Yu: There is no evidence of pathologic hilar adenopathy given the limitations of noncontrast study. Axilla: There is no evidence of pathologic axillary lymphadenopathy. Upper abdomen: Partially visualized upper abdominal viscera is within normal limits. Skeletal structures: There are no lytic or blastic osseous lesions. IMPRESSION: 1. No acute intrathoracic findings 2. No evidence of focal pulmonary consolidation 2. No evidence of pathologic adenopathy. ACT 112: Negative or not required by law. Electronically signed by: Arash Joe M.D. 01/31/2021 9:09 AM
[2021-01-31] MEDS: KETOROLAC 30 MG/ML VIAL IV PRN (11:21)
[2021-01-31 13:36] LABS: Hepatitis A Antibody IgM NON-REACTIVE (NON-REACTIVE); Hepatitis B Core Antibody IgM NON-REACTIVE (NON-REACTIVE)
[2021-01-31] MEDS: ONDANSETRON INJ 2 MG/ML 2 ML VIAL IV PRN (15:54)
[2021-01-31] MEDS: FAMOTIDINE 20 MG in SYRINGE 3 ML IV SCH (21:49)
[2021-01-31] MEDS: DAPTOmycin 800 MG in SYRINGE 0 ML IV SCH (21:50)
[2021-01-31 22:51] LABS: Influenza A virus by PCR Negative (Neg); Influenza B virus by PCR Negative (Neg); RSV by PCR Negative (Neg); SARS CoV2 RNA(COVID-19) InHosp NEGATIVE (Negative)
[2021-02-01] MEDS: ACETAMINOPHEN 325 MG TAB PO PRN ×3 (01:58→19:29)
[2021-02-01] MEDS: KETOROLAC 30 MG/ML VIAL IV PRN ×4 (01:59→22:38)
[2021-02-01] MEDS: MEROPENEM 500 MG in SYRINGE 0 ML IV SCH ×2 (03:25→10:47)
[2021-02-01 08:01] LABS: Basophils # (auto) 0.01 K/uL (0-0.2); Basophils % (auto) 0.1 %; Eosinophils # (auto) 0.18 K/uL (0-0.5); Eosinophils % (auto) 1.6 %; Hematocrit (blood only) 39.9 % (42-52); Hemoglobin 13.9 g/dL (14.0-18.0); Immature Granulocytes # (auto) 0.04 K/uL (0.00-0.02); Immature Granulocytes % (auto) 0.4 %; Lymphocytes # (auto) 1.26 K/uL (1.2-3.4); Lymphocytes % (auto) 11.1 %; Mean Corpuscular Hemoglobin 28.3 pg (25-34); Mean Corpuscular Hgb Conc 34.8 g/dL (32-36); Mean Corpuscular Volume 81.3 fL (80-100); Mean Platelet Volume 10.3 fL (7.4-10.4); Monocytes # (auto) 0.84 K/uL (0.11-0.59); Monocytes % (auto) 7.4 %; Neutrophils % (auto) 79.4 %; Platelet Count 127 K/uL (130-400); RDW Coefficient of Variation 14.2 % (11.5-14.5); RDW Standard Deviation 42.5 fL (36.4-46.3); Red Blood Count 4.91 M/uL (4.7-6.1); White Blood Count 11.33 K/uL (4.8-10.8)
[2021-02-01 08:20] LABS: Albumin Globulin Ratio 0.4 (0.9-2); Albumin Level 2.1 gm/dl (3.4-5.0); BUN Creatinine Ratio 14.6 (10-20); Bilirubin,Total 0.8 mg/dl (0.2-1); Calcium 8.3 mg/dl (8.5-10.1); Creatinine Clr Calc Pharmacy 247.5 ml/min; Est GFR (African American) 135.1; Est GFR (Non-African American) 116.6; Globulin 4.7 gm/dl (2.5-4.0); Potassium 3.9 mmol/L (3.5-5.1); Total Protein 6.8 gm/dl (6.4-8.2)
--- NOTE | 2021-02-01 08:33 | Hospitalist Progress Note ---
Date of Service February 01, 2021 Assessment & Plan (1) Sepsis: (2) Tachycardia: (3) Leukocytosis: (4) Fever: (5) Uncontrolled diabetes mellitus: (6) Bipolar I disorder: (7) Depression: (8) Diabetes mellitus, type II: (9) Tobacco use disorder: (10) ADD (attention deficit disorder): (11) Morbid obesity: Continue abx Daptomycin and Meropenem, no clear source of infection yet, WBCs up again, Hepatitis panel is negative, Lyme and EBV pending, IS, CTC was negative, CT Neck today to R/O [employer] Labs checked ROS-No Headache, No Visual Changes, No Nausea, No Vomiting, + Fever, No Chills, + Neck Pain or Stiffness, No Chest Pain, No Palpitations, No SOB, No GLYNN, No Cough, No Sputum, No Wheezing, No Abdominal Pain, No Diarrhea, No Hematemesis, No Hemoptysis, No Unexpected Weight Loss, No Flank pain, No Melena, No Hematochezia, No Frequency, No Urgency, No Burning, No Hematuria, No Rashes, No Diaphoresis. Appetite is Normal Physical Exam Gen-AAO x 3, NAD, febrile, obese Head-NCAT, EOMI, PERRLA, Anicteric Sclera, No Posterior Pharyngeal Erythema Neck-Supple, No JVD, No Thyromegaly, No Masses, No LAD, No Bruits Lungs-Clear to Auscultation Bilaterally, No Rales, No Rhonchi, No Wheezing, No Crepitus Chest-No S4, +S1, +S2, No S3, No Murmurs, No Rubs, No Gallops, No Ectopy Abdomen-Soft, Bowel Sounds Present, Non Tender, Non Distended, No Hepatomegaly, No Splenomegaly, No Palpable Masses, No Rebound, No Rigidity, No Guarding Musculoskeletal-Full Range of Motion Bilaterally, No CVAT Extremities-No Cyanosis, No Clubbing, No Edema Nuero-Cranial Nerves II-XII grossly intact, Motor WNL, DTRs WNL, Strength WNL, Non Focal Psych-Normal Mood Admission and Anticipated Discharge Date Admission Date: January 28, 2021 Results & Data Results & Data ([facility]) Vital Signs (Past 12 Hours) Vital Signs Temp Pulse Resp BP BP Pulse Ox 02/01/21 07:20 37.2 C 91 H 16 107/62 96 05/02/21 03:28 37.0 C 89 02/01/21 01:50 38.0 C H 102 H 18 139/78 97 01/31/21 23:03 37.5 C 91 H 22 126/73 96 (1) Sepsis Sepsis acute organ dysfunction status: without acute organ dysfunction Sepsis type: sepsis due to unspecified organism Qualified Code(s): A41.9 - Sepsis, unspecified organism (2) Leukocytosis Leukocytosis type: unspecified Qualified Code(s): D72.829 - Elevated white blood cell count, unspecified (3) Fever Fever type: unspecified Qualified Code(s): R50.9 - Fever, unspecified
[2021-02-01] MEDS ORDERED: OPTIRAY 350 500ml IV ONE (08:58)
[2021-02-01] MEDS: ENOXAPARIN INJ 40 MG/0.4 ML SYR SQ SCH ×2 (09:06→20:01)
[2021-02-01] MEDS: INSULIN ASPART 100 UNITS/ML 3 ML PEN SC SCH ×4 (09:08→21:00)
[2021-02-01] MEDS: INSULIN GLARGINE SOLOSTAR 100 UNITS/ML 3 ML PEN SQ SCH ×2 (09:09→21:00)
--- NOTE | 2021-02-01 09:25 | CT Scan Report ---
CT soft tissue neck w con HISTORY: 35 years-old Male Neck soreness, HX Peritonsilar Abscess acute neck pain COMPARISON: Chest CT 01/31/2021 CT soft tissue neck 11/06/2020 TECHNIQUE: Multiple axial CT images of the soft tissues of the neck were obtained following the intra venous ministration of 110 mL Optiray 350. A dose lowering technique was used consistent with [facility]. FINDINGS: Mildly motion degraded exam. Asymmetric enlargement with heterogeneity of the left palatine tonsil wi th surrounding inflammatory stranding. Probable enlarged lymph node within the left parapharyngeal ti ssues on image 78 measures 1.4 x 1.0 cm. Pathologically enlarged left cervical chain lymph nodes adriane ure up to 1.5 x 1.8 cm. There is retropharyngeal edema and fluid measuring up to 2.8 x 0.9 cm in simon sverse and AP dimension extending from C2-C3 to the C5-C6 levels. No loculated peripherally enhancing fluid collection. 11 mm right thyroid nodule. Enlargement of the uvula. There is mild to moderate na rrowing of the oral pharynx and hypopharynx. The epiglottis, glottis and subglottic airway appears un remarkable. Lung apices are clear. No pneumothorax. No acute fracture. Degenerative changes of the cervical spine. IMPRESSION: 1. Heterogeneity with edema and enlargement of the adenoid and palatine tonsils and uvula is suggesti ve of tonsillitis/pharyngitis. Inflammatory stranding is most pronounced within the left parapharynge al tissues and left neck with retropharyngeal edema/phlegmon extending from the level of C2-C3 to the level C5-C6 measuring up to 1.5 x 1.8 cm. No discrete abscess identified at this time. 2. Pathologically enlarged left parapharyngeal and cervical chain lymph nodes are favored to be react wally. ACT 112: Negative or not required by law. The above report was generated using voice recognition software. It may contain grammatical, syntax o r spelling errors. Electronically signed by: Fermin Burns M.D. 02/01/2021 9:24 AM
[2021-02-01] MEDS: FAMOTIDINE 20 MG in SYRINGE 3 ML IV SCH ×2 (09:50→20:01)
[2021-02-01] MEDS ORDERED: VANCOMYCIN CONSULT ACTIVE PRN (10:49)
[2021-02-01] MEDS ORDERED: diphenhydrAMINE 50 MG/ML VIAL IV PRN (10:57)
[2021-02-01] MEDS ORDERED: VANCOMYCIN HCL 1,000 MG in SODIUM CHLORIDE 0.9% 250 ML IV SCH (11:00)
[2021-02-01] MEDS ORDERED: LINEZOLID CONSULT ACTIVE PRN (11:51)
[2021-02-01] MEDS: cefTRIAXone SODIUM 2,000 MG in DEXTROSE 5% 50 ML IV SCH (12:25)
[2021-02-01] MEDS: LINEZOLID 600 MG/300 ML BAG IV SCH ×2 (13:11→20:00)
[2021-02-01] MEDS: metroNIDAZOLE 500 MG/100 ML BAG IV SCH ×2 (15:31→22:00)
--- NOTE | 2021-02-01 16:41 | ENT Consultation ---
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 Initially improved on IV abx, now with tenderness over L parotid tail/level II/III neck and neck stiffness. CT neck shows retropharyngeal edema without abscess. No radiologic or clinical evidence of peritonsillar or retropharyngeal abscess. Airway widely patent on laryngoscopy today. -Continue IV abx, agree with ID evaluation -Consider IV decadron 10mg Q8h x3 doses, although risks may outweight benefits given DM -Strict BG control -Monitor neck stiffness, if worsening over 24-48 hours, would recommend repeat CT to evaluate for evolving retropharyngeal abscess -Sialogogues (lemon candy), warm compresses, massage, hydration to lessen sialoadenitis, which is likely secondary to infection/vomiting/dehydration -Call with worsening dysphagia, dysphonia, dyspnea/stridor History of Present Illness Reason for Consultation: pharyngitis Attending Physician: Huy Rojas, History of Present Illness 35yM h/o poorly controlled DM, 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 Initially treated with IV abx and WBC trended down. Then yesterday developed recurrent fevers, nausea/vomiting, L neck tenderness and stiffness. No throat pain, dysphagia, otalgia, dysphonia, dyspnea, stridor. Mild odynophagia. No previous throat surgeries aside from recent tonsillectomy. Labs: WBC 11 BCx 01/28 negative Imaging: CT neck with contrast - I personally reviewed the scan, which per my read shows stranding over L parotid gland, multiple likely reactive level II-IV nodes on the left. Scant retropharyngeal fluid without rim-enhancing abscess. Tonsils surgically absent. Radiology read: IMPRESSION: 1. Heterogeneity with edema and enlargement of the adenoid and palatine tonsils and uvula is suggestive of tonsillitis/pharyngitis. Inflammatory stranding is most pronounced within the left parapharyngeal tissues and left neck with retropharyngeal edema/phlegmon extending from the level of C2-C3 to the level C5-C6 measuring up to 1.5 x 1.8 cm. No discrete abscess identified at this time. 2. Pathologically enlarged left parapharyngeal and cervical chain lymph nodes are favored to be reactive. Allergies Allergy/AdvReac Type Severity Reaction Status Date / Time aspirin Allergy Unknown Unknown Verified 01/28/21 20:14 Bactrim Allergy Unknown . Verified 02/01/18 00:10 Cephalosporins Allergy Unknown Unknown Verified 01/28/21 20:14 Penicillins Allergy Unknown Unknown Verified 01/28/21 20:14 Sulfa (Sulfonamide Allergy Unknown Unknown Verified 01/28/21 20:14 Antibiotics) sulfamethoxazole Allergy Unknown Unknown Verified 01/28/21 20:14 trimethoprim Allergy Unknown Unknown Verified 01/28/21 20:14 lisinopril AdvReac Mild gi upset Verified 01/28/21 20:14 as per px Home Medications Medication Instructions Recorded Confirmed Type Lantus Solostar U-100 Insulin 50 unit SUBCUT BID 11/05/20 01/28/21 History cyclobenzaprine 5 mg PO TID PRN 11/06/20 01/28/21 History Patient History Medical History Abscess, peritonsillar Acute streptococcal tonsillitis ADD (attention deficit disorder) Asthma, exercise induced Bipolar I disorder Depression Diabetes mellitus with hyperosmolarity without hyperglycemic hyperosmolar nonketotic coma Diabetes mellitus, type II Discharge planning issues DVT prophylaxis Morbid obesity MRSA (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 Seasonal allergies Skin ulcer Strep pharyngitis Tobacco use disorder Surgical History History of surgery on wrist History of tonsillectomy S/P appendectomy Family History Mother Hypertension Father Coronary heart disease Diabetes Brother Diabetes Other Allergies Asthma Cancer Hearing loss Heart disease No family history of adverse response to anesthesia No family history of bleeding disorder Social History Smoking Status: Current every day smoker Tobacco Type: Cigarettes Second Hand Exposure: No; Do You Dip or Chew Tobacco: No; Hx Alcohol Use: Yes Hx Substance Use: No Preferred Language: Ukrainian Communication Ability: Effective Visual Impairment: No Limitations Hearing Ability: Normal Aluminum Molder Required: No Beliefs That Will Affect Care: None Current Living Situation: Significant Other Other Information That Helps Us Care for You: No Feels Safe at Home: Yes Safety Concerns: Feels Safe At This Time Assistive Devices: None Review of Systems Review of Systems: All systems reviewed & are unremarkable except as noted in HPI & below Physical Exam Physical Exam: General: The patient is well-developed, well-nourished, and in no acute distress. Morbidly obese Head and Face: Skull: No obvious deformities Sinus tenderness: There is no tenderness to palpation of the sinuses. Salivary glands: Tenderness and induration with palpation of tail of L parotid, no palpable abscess or stone. Clear saliva expressed from Yenni's duct Facial strength: Facial motion is symmetric and without weakness. Eyes: Eyelids: There is no periorbital edema. Conjunctiva: There is no conjunctival erythema. Pupils: The pupils are equal, round, and reactive to light. Extraocular muscles: Extraocular movement is normal. Nystagmus: There is no nystagmus. Ears: Right auricle: The pinna is normally formed without skin lesion or mass. Left auricle: The pinna is normally formed without skin lesion or mass. Right EAC: There is no external auditory canal erythema, edema, lesion, or ma ss. Left EAC: There is no external auditory canal erythema, edema, lesion, or mass. Right TM/middle ear: TM is intact without perforation, flat, and translucent. The middle ear space is clear Left TM/middle ear: TM is intact without perforation, flat, and translucent. The middle ear space is clear Hearing: Clinical speech reception specialist threshold testing is grossly normal. Nose: External: There is no gross external deformity, tenderness, or skin lesion or m ass. Mucosa: There is no nasal mucosal edema, inflammation, lesion, or mass. Septum: The nasal septum is midline. Nasal cavity: There is no inferior turbinate hypertrophy, edema, inflammation, or mass bilaterally. The inferior meatus and middle meatus were clear bilaterally without mass, lesion, mucopurulence, or polyposis. Oral cavity/Oropharynx: Lips: There are no lip lesions or masses. Oral cavity: There is no inflammation, lesion, or mass involving the gums, gingiva, floor of mouth, buccal mucosa, retromolar trigone, hard palate, soft palate, tongue. Dentition is intact. Oropharynx: There is no inflammation, lesion, or mass involving the palatine tonsils or posterior pharyngeal wall. Tonsils surgically absent. No uvular deviation, soft palate fullness Neck: General: There are no visible scars or lesions involving the neck. There are no visible or palpable masses involving the neck. The trachea is midline. Lymph nodes: Tender L level II/III lymph nodes, mldly enlarged Thyroid: There is no visible or palpable thyroid enlargement or nodularity. Respiratory/Pulmonary: There is no stertor or stridor. There is normal respiratory effort without acute distress. Cardiovascular: There is no visible extremity edema. Skin: There are no visible lesions or masses involving the skin of the head and neck region. Neurological: Cranial nerves: Cranial nerve II is noted to be intact by grossly normal visual acuity. Cranial nerves III, IV, and are noted to be intact by normal extraocular movements. Cranial nerve V is noted to be intact by normal facial sensation. Cranial nerve VII is noted to be intact by symmetric and normal facial movement. Cranial nerve VIII is noted to be intact by a relatively normal clinical speech reception specialist threshold. Cranial nerve IX is noted to be intact by an intact gag reflex and normal palatal movement. Cranial nerve X is noted to be intact by a normal voice. Cranial nerve XI is noted to be intact by normal shoulder and head movement. Cranial nerve XII is noted to be intact by normal symmetric tongue movement. Vestibular system: The patient has a normal gait. There is no spontaneous or gaze evoked nystagmus. Psychiatric: Mental status: The patient is awake and alert. Mood/affect: The patient has a normal mood and affect. Mild restriction of neck ROM to the left, limited by pain. Full ROM to the right, flexion/extension Procedure: Flexible fiberoptic laryngoscopy Indication: Retropharyngeal edema Details: Following the topical application of afrin and lidocaine, the flexible laryngoscope was inserted into the nasal cavity. The septum, turbinates, and nasal mucosa were normal. The nasopharynx was normal. The base of tongue and vallecula were normal. There were secretions layered over the posterior pharyngeal wall, which was normal without edema/bulging/erythema/purulence. The epiglottis, bilateral arytenoids, and bilateral aryepiglottic folds, and bilateral false vocal folds were normal. The true vocal folds were normal without masses or lesions. There was normal mobility of the true vocal folds bilaterally. The bilateral pyriform sinuses and postcricoid space was normal. No aspiration or penetration was visualized. The patient tolerated the procedure well. Results & Data ([facility]) Vital Signs (Past 12 Hours) Vital Signs Temp Pulse Resp BP BP Pulse Ox 02/01/21 14:50 37.6 C H 109 H 18 106/71 96 02/01/21 12:18 37.5 C 103 H 18 109/70 95 02/01/21 07:20 37.2 C 91 H 16 107/62 96 PG Care Time/CCT Total # of Minutes Spent Total Time Spent with Patient: Total time spent is greater than 50% in coordination of care (as documented) at patient's floor/unit and/or counseling patient: Coding Level of Care Code 67658 Inpt Consult Level 4 (25 - SIGNIFICANT, SEPARATELY IDENTIFIABLE ) Diagnoses Neck stiffness M43.6 Parotitis K11.20 CPT Codes Diagnostic Laryngoscopy - 00161 ([id number])
[2021-02-01] MEDS ORDERED: COUGH DROP (SUGAR FREE) LOZ 24 LOZ/1 BOX BUCCAL PRN (18:19)
[2021-02-02] MEDS ORDERED: ALUMINUM/MAGNESIUM/SIMETH (MAALOX MAX) 30 ML UDC PO STA (00:18)
[2021-02-02] MEDS: metroNIDAZOLE 500 MG/100 ML BAG IV SCH ×2 (06:19→15:00)
[2021-02-02] MEDS ORDERED: SODIUM CHLORIDE 0.9% 1000ML 1,000 ML IV ONE ×2 (07:01→08:38)
--- NOTE | 2021-02-02 07:39 | Ears,Nose,Throat Progress Note ---
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 Initially improved on IV abx, now with tenderness over L parotid tail/level II/III neck and neck stiffness with ROM to L. CT neck shows retropharyngeal edema without abscess, inflammatory changes L neck with adenopathy, no abscess or subcutaneous emphysema. No radiologic or clinical evidence of peritonsillar or retropharyngeal abscess. Airway widely patent on laryngoscopy 02/01/21. Now with SIRS, BG 250s, WBC pending. Exam stable without evidence of abscess or airway c oncerns. -Continue IV abx, agree with ID evaluation -Consider IV decadron 10mg Q8h x3 doses, although risks may outweight benefits given DM -Strict BG control -Recommend repeat CT neck with contrast given worsening clinical course, although ENT exam appears stable -Sialogogues (lemon candy), warm compresses, massage, hydration to lessen mild sialoadenitis, which is likely secondary to infection/vomiting/dehydration -Call with worsening dysphagia, dysphonia, dyspnea/stridor Admission and Anticipated Discharge Date Admission Date: January 28, 2021 Subjective Increased HR with soft BPs overnight. Patient reports sweats but no fever. Overall feeling poorly. Mild improvement in L neck discomfort. Ongoing unchanged neck stiffness with head turn to left. No throat pain, odynophagia, dysphagia, voice change, dyspnea, stridor. +cough. Physical Exam Physical Exam: Obese No acute distress Normal voice Nonlabored respirations, mild nonproductive cough Neck with induration over L level II/III, mild induration of L parotid gland. No palpable abscess or crepitus. No overlying skin changes No dental abscess Oropharynx clear, no evidence of posterior pharyngeal fullness or erythema Tonsils surgically absent Restriction of neck ROM to the L, slightly improved compared to prior exam, otherwise full ROM BG 250s overnight Results & Data ([facility]) Vital Signs (Past 12 Hours) Vital Signs Temp Pulse Resp BP BP Pulse Ox 02/02/21 07:27 37.5 C 02/02/21 07:26 114 H 17 88/56 L 95 02/02/21 06:37 122 H 76/54 L 02/02/21 06:32 36.9 C 117 H 18 88/58 L 97 02/02/21 00:00 36.7 C 113 H 18 96/65 L 95 02/01/21 22:08 37.1 C 113 H 16 152/87 H 93 PG Care Time/CCT Total # of Minutes Spent Total Time Spent with Patient: Total time spent is greater than 50% in coordination of care (as documented) at patient's floor/unit and/or counseling patient: Coding Level of Care Code 65655 Subseq Hosp Care Lvl 2 Diagnoses Neck stiffness M43.6 Parotitis K11.20
--- NOTE | 2021-02-02 08:30 | Hospitalist Progress Note ---
Date of Service February 02, 2021 Assessment & Plan (1) Sepsis: (2) Tachycardia: (3) Leukocytosis: (4) Fever: (5) Uncontrolled diabetes mellitus: (6) Bipolar I disorder: (7) Depression: (8) Diabetes mellitus, type II: (9) Tobacco use disorder: (10) ADD (attention deficit disorder): (11) Morbid obesity: Continue abx now on Vanco, Flagyl and Rocephin, Neck seems to be source, WBCs up again, Hepatitis panel is negative, Lyme and EBV pending, IS, CTC was negative, CT Neck repeat today, seen by ENT yesterday and today. Bolus given, second bolus ordered Labs checked ROS-No Headache, No Visual Changes, No Nausea, No Vomiting, + Fever, No Chills, + Neck Pain or Stiffness, positive sweats, no Chest Pain, No Palpitations, No SOB, No GLYNN, No Cough, No Sputum, No Wheezing, No Abdominal Pain, No Diarrhea, No Hematemesis, No Hemoptysis, No Unexpected Weight Loss, No Flank pain, No Melena, No Hematochezia, No Frequency, No Urgency, No Burning, No Hematuria, No Rashes, + Diaphoresis. Appetite is Normal Physical Exam Gen-AAO x 3, NAD, febrile, obese Head-NCAT, EOMI, PERRLA, Anicteric Sclera, No Posterior Pharyngeal Erythema Neck-Supple, No JVD, No Thyromegaly, No Masses, No LAD, No Bruits Lungs-Clear to Auscultation Bilaterally, No Rales, No Rhonchi, No Wheezing, No Crepitus Chest-tachycardic, no S4, +S1, +S2, No S3, No Murmurs, No Rubs, No Gallops, No Ectopy Abdomen-Soft, Bowel Sounds Present, Non Tender, Non Distended, No Hepatomegaly, No Splenomegaly, No Palpable Masses, No Rebound, No Rigidity, No Guarding Musculoskeletal-Full Range of Motion Bilaterally, No CVAT Extremities-No Cyanosis, No Clubbing, No Edema Nuero-Cranial Nerves II-XII grossly intact, Motor WNL, DTRs WNL, Strength WNL, Non Focal Psych-Normal Mood Admission and Anticipated Discharge Date Admission Date: January 28, 2021 Results & Data Results & Data ([facility]) Vital Signs (Past 12 Hours) Vital Signs Temp Pulse Resp BP BP Pulse Ox 02/02/21 08:03 37.1 C 114 H 79/51 L 02/02/21 07:46 115 H 89/49 L 02/02/21 07:27 37.5 C 02/02/21 07:26 114 H 17 88/56 L 95 02/02/21 06:37 122 H 76/54 L 02/02/21 06:32 36.9 C 117 H 18 88/58 L 97 02/02/21 00:00 36.7 C 113 H 18 96/65 L 95 02/01/21 22:08 37.1 C 113 H 16 152/87 H 93 (1) Sepsis Sepsis acute organ dysfunction status: without acute organ dysfunction Sepsis type: sepsis due to unspecified organism Qualified Code(s): A41.9 - Sepsis, unspecified organism (2) Leukocytosis Leukocytosis type: unspecified Qualified Code(s): D72.829 - Elevated white blood cell count, unspecified (3) Fever Fever type: unspecified Qualified Code(s): R50.9 - Fever, unspecified
[2021-02-02] MEDS ORDERED: VANCOMYCIN CONSULT ACTIVE PRN (08:38)
[2021-02-02] MEDS: INSULIN ASPART 100 UNITS/ML 3 ML PEN SC SCH ×4 (09:10→20:44)
[2021-02-02] MEDS: ENOXAPARIN INJ 40 MG/0.4 ML SYR SQ SCH ×2 (09:11→22:04)
[2021-02-02] MEDS: FAMOTIDINE 20 MG in SYRINGE 3 ML IV SCH ×2 (09:11→20:10)
[2021-02-02] MEDS: cefTRIAXone SODIUM 2,000 MG in DEXTROSE 5% 50 ML IV SCH (09:11)
[2021-02-02] MEDS: INSULIN GLARGINE SOLOSTAR 100 UNITS/ML 3 ML PEN SQ SCH ×2 (09:12→20:43)
[2021-02-02] MEDS ORDERED: VANCOMYCIN HCL 2,000 MG in SODIUM CHLORIDE 0.9% 500 ML IV STA (09:26)
[2021-02-02] MEDS ORDERED: OPTIRAY 350 500ml IV ONE (09:42)
--- NOTE | 2021-02-02 09:44 | Pharmacy Report ---
Pharmacy Abx Dose Short Note - Date of Service February 02, 2021 - Assessment & Plan Assessment 35 year old M receiving Linezolid, Ceftriaxone, and Metronidazole for treatment of parotitis * Patient was admitted twice in November 2020 for L Peritonsillar Abscess s/p I&D and tonsillectomy (grew Group A Strep). Admitted again on 01/28 secondary to fevers, leukocytosis. Received a dose of Ertapenem and Daptomycin and in the ER. Was then on Daptomycin x 4 days. On 02/01, patient was switched to Linezolid, Ceftriaxone, and Metronidazole secondary to persistent fever and slight increase in WBCs. Linezolid was discontinued this AM and provider entered Vancomycin consult. * Patient refused AM dose of Flagyl this morning. No updated labs today. Patient remains febrile. Blood cultures and MRSA swab negative from this admission. Patient does have a history of MRSA infection. * Given elevated BMI, will utilize AUC/MONTY dosing to limit risk of nephrotoxicity with Vancomycin. Plan Vancomycin * AUC/MONTY is the preferred PK/PD target for Vancomycin dosing * AUC/MONTY target = 400-600 mg/L.hr * Will give a 2000 mg IV loading dose of Vancomycin this morning (10 mg/kg) * Following loading dose, will start 1250 mg IV every 12 hours (6 mg/kg) this evening * Opting for lower doses and extended interval given patient's BMI and risk for drug accumulation * This regimen is expected to have a steady state trough of 11.2 mg/L which will correspond to a steady state AUC of 448 mg/L.hr (at goal) * This regimen has only a 7% risk of nephrotoxicity with a 58% chance of reaching goal AUC/MONTY * Will order a trough for Tuesday (02/04) which will reflect steady state levels Pharmacy will continue to follow and will adjust dose/frequency as necessary. Thank you.
[2021-02-02 11:35] LABS: EBV Virus Capsid Ag IgG Ab >750.00 U/mL
--- NOTE | 2021-02-02 13:50 | CT Scan Report ---
CT soft tissue neck w con CT DOSE: 1088.51 mGy.cm CLINICAL HISTORY: Peritonsillar phlegmon. NECK PAIN TECHNIQUE: Helical images were acquired during intravenous administration of 120 cc of Optiray. A do se lowering technique was utilized adhering to the principles of ALARA. COMPARISON STUDY: 02/01/2021 FINDINGS: The visualized portions of the lung apices are unremarkable. There is a 14 mm right lobe thyroid nodule. This remains unchanged from the prior study. No salivary gland masses are visualized. There is persistent left cervical lymphadenopathy, likely reactive. The epiglottis appears normal. There is no evidence of retropharyngeal abscess. There is tonsillar an d adenoidal hypertrophy. There is left tonsillar edema. There is no CT evidence of a discrete periton sillar abscess. There is no evidence of airway compromise. There is minimal inflammatory infiltration of the left parapharyngeal space. IMPRESSION: 1. Motion degraded study 2. Tonsillar and adenoidal hypertrophy with left tonsillar edema and parapharyngeal edema. No CT evid ence of a focal peritonsillar abscess 3. No evidence of airway compromise 4. Persistent left cervical lymphadenopathy likely reactive. Follow-up to document resolution recomme nded. 5. Stable right thyroid nodule. ACT 112: Negative or not required by law. Electronically signed by: Arash Joe M.D. 02/02/2021 1:49 PM
[2021-02-02] MEDS ORDERED: SODIUM CHLORIDE 0.9% 1000ML 2,000 ML IV ONE (16:22)
[2021-02-02 17:12] LABS: Calcium 8.2 mg/dl (8.5-10.1); Creatinine Clr Calc Pharmacy 52.7 ml/min; Est GFR (African American) 23.8; Est GFR (Non-African American) 20.6; Potassium 3.8 mmol/L (3.5-5.1)
[2021-02-02] MEDS: KETOROLAC 30 MG/ML VIAL IV PRN (17:18)
[2021-02-02] MEDS ORDERED: VANCOMYCIN HCL 1,250 MG in SODIUM CHLORIDE 0.9% 250 ML IV SCH (20:00)
--- NOTE | 2021-02-02 20:54 | Hospitalist Progress Note ---
Date of Service February 02, 2021 Assessment & Plan Admission and Anticipated Discharge Date Admission Date: January 28, 2021 Subjective Patient having persistent t low blood pressure even after 4lts of fluids today. Patient sitting on the bed and talking fine though seemed somewhat slow to answer. He says he is feeling fine.Currently afebrile. Low urine out put. After discussing with ICU transferring patient to ICU. cut zeus on Lantus to 25units bid because of PRAFUL. Changing abx to clindamycin and azactum because of PRAFUL and allergies. Will follow labs. Results & Data Results & Data ([facility]) Vital Signs (Past 12 Hours) Vital Signs Temp Pulse Resp BP BP Pulse Ox 02/02/21 19:28 36.6 C 100 H 18 72/50 L 96 02/02/21 15:32 37.0 C 111 H 20 83/52 L 96 02/02/21 11:59 118 H 79/49 L 02/02/21 11:15 37.4 C 115 H 21 78/53 L 96
[2021-02-02] MEDS ORDERED: STAT IV Infusion **Titration per Protocol STA (21:06)
[2021-02-02] MEDS ORDERED: ICU PROTOCOL FOR HYPERGLYCEMIA PRN (21:06)
--- NOTE | 2021-02-02 21:10 | Critical Care Consultation ---
Date of Consultation February 02, 2021 Assessment & Plan (1) Admitted to intensive care unit: Reason Critically Ill: 35-year-old male with infection of unknown source who is now hypotensive and requiring vasopressor support. Patient also with acute renal failure of questionable source as well. NEURO - * CAM ICU: NEGATIVE CARDIAC/VASCULAR - * Hypotension: * Likely in the setting of sepsis and acute renal failure. * Initially resuscitated with 4 L IV fluids. * Little/no urine output. * Patient requiring vasopressor support. * Monitor on telemetry. RESPIRATORY - * History of asthma * Saturating well on room air. GI/NUTRITION - * No concerns at this point. * Prophylaxis: Famotidine RENAL/LYTES - * Acute renal failure: * ATN versus interstitial injury. * Patient has received [address] scans with IV contrast during his hospitalization. * Patient had been receiving 30 mg Toradol every 6 hours. * Has received multiple antibiotics as well. * Did informally reach out to nephrology regarding initial laboratory assessment. * Will consult for evaluation tomorrow. * Will add vasopressor for increased renal perfusion. * Continue with ongoing fluids. * Discontinue all nephrotoxic agents. * Check CPK for ?? Rhabdomyolysis * IVF: NSS at 100 mL's per hour. - * Addison in place - Strict I&Os. ENDO - * DMII * BSGs per unit protocol. ISS --> gtt per unit policy. HEME - * Stable H&H ID - * Sepsis from ?? source: * Possible LEFT sided neck abscess/parotitis. * Previously on multiple different antibiotics. * Will hold on any nephrotoix Rx at this time 2/2 renal injury. * Check Lactate/PCT LINES/IV ACCESS - * PIVs x1 * RIGHT IJ CVL * RIGHT Radial Art Line * Addison DVT PROPHYLAXIS - * Lovenox * SCDs I have personally spent 63 minutes of critical care time in the direct management of this patient. This is a life/limb threatening event. This includes time spent evaluating patient, direct bedside care, chart review, placing orders, interpretation of diagnostic studies, discussion with consultants, patient, and family members, as well as other required patient management activities. This time is exclusive of all separately billable procedures, and teaching time and separate from and in addition to any other critical care service time. Thank you for allowing us to participate in the care of this patient. Please refer to my attending physician's documentation for any further recommendations. (2) Hypotension: (3) Acute renal failure: (4) Oliguria: (5) Parotitis: (6) Sepsis: (7) Fever: (8) Leukocytosis: History of Present Illness Attending Physician: Huy Rojas DO History of Present Illness Patient is a 35-year-old male with a significant past medical history of morbid obesity, asthma, diabetes, depression, bipolar 1 disorder, and recent bronwyn tonsillar abscess status post tonsillectomy. The patient was admitted to this institution with fevers and generalized malaise from additional unknown source. Throughout evaluation, there was concern for possible abscess to the LEFT-sided neck. Patient was evaluated by ENT as well as ID and has been on multiple antibiotics including daptomycin, ertapenem, meropenem, vancomycin, Flagyl. Currently, the patient is receiving clindamycin and aztreonam. Throughout the day, the patient has had worsening hypotension. He received greater than 4 L of crystalloid. Patient has had little/no urine output. Creatinine is now greater than 3. Upon my evaluation in the ICU, the patient is awake, alert, and oriented. His systolic blood pressures are in the 60s. Despite acute of illness, the patient denies any complaints and states that he feels "fine". Patient specifically denies any complaints of headaches, dizziness, lightheadedness, chest pain, palpitations, shortness of breath, nausea, vomiting, abdominal pain. Allergies Allergy/AdvReac Type Severity Reaction Status Date / Time aspirin Allergy Unknown Unknown Verified 01/28/21 20:14 Bactrim Allergy Unknown . Verified 02/01/18 00:10 Cephalosporins Allergy Unknown Unknown Verified 01/28/21 20:14 Penicillins Allergy Unknown Unknown Verified 01/28/21 20:14 Sulfa (Sulfonamide Allergy Unknown Unknown Verified 01/28/21 20:14 Antibiotics) sulfamethoxazole Allergy Unknown Unknown Verified 01/28/21 20:14 trimethoprim Allergy Unknown Unknown Verified 01/28/21 20:14 lisinopril AdvReac Mild gi upset Verified 01/28/21 20:14 as per px Home Medications Medication Instructions Recorded Confirmed Type Lantus Solostar U-100 Insulin 50 unit SUBCUT BID 11/05/20 01/28/21 History cyclobenzaprine 5 mg PO TID PRN 11/06/20 01/28/21 History Patient History Medical History Abscess, peritonsillar Acute streptococcal tonsillitis ADD (attention deficit disorder) Asthma, exercise induced Bipolar I disorder Depression Diabetes mellitus with hyperosmolarity without hyperglycemic hyperosmolar nonketotic coma Diabetes mellitus, type II Discharge planning issues DVT prophylaxis Morbid obesity MRSA (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 Seasonal allergies Skin ulcer Strep pharyngitis Tobacco use disorder Surgical History History of surgery on wrist History of tonsillectomy S/P appendectomy Family History Mother Hypertension Father Coronary heart disease Diabetes Brother Diabetes Other Allergies Asthma Cancer Hearing loss Heart disease No family history of adverse response to anesthesia No family history of bleeding disorder Social History Smoking Status: Current every day smoker Tobacco Type: Cigarettes Second Hand Exposure: No; Do You Dip or Chew Tobacco: No; Hx Alcohol Use: Yes Hx Substance Use: No Preferred Language: Spanish Communication Ability: Effective Visual Impairment: No Limitations Hearing Ability: Normal Sugarcane Research Technician Required: No Beliefs That Will Affect Care: None Current Living Situation: Significant Other Other Information That Helps Us Care for You: No Feels Safe at Home: Yes Safety Concerns: Feels Safe At This Time Assistive Devices: None Review of Systems Review of Systems: A complete 10 point review of systems was reviewed with the patient with pertinent positives and negatives as per history of present illness. All else were negative. Physical Exam Physical Exam: VITAL SIGNS - Vital signs and nursing notes were reviewed. GENERAL - 35-year-old male appearing his stated age who is ill appearing. Communicates well with provider and answers questions appropriately. SKIN - Without rashes. HEAD - NC/AT. EYES - PERRL with EOMI bilaterally. Sclera anicteric. EARS - No deformities of external structures noted on gross examination bilaterally. NOSE - Midline and without cyanosis. No epistaxis or purulent drainage noted. Septum midline without deviation or septal hematoma noted. MOUTH/OROPHARYNX - Without perioral cyanosis. Buccal mucosa pink and moist and without leukoplakia. NECK - Neck with FROM. Supple to palpation. Left-sided lymphadenopathy noted. No nuchal rigidity. LUNGS - Chest wall symmetric without accessory muscle use, intercostals retractions, or central cyanosis. Normal vesicular breath sounds CTA B/L. No wheezes, rales, or rhonchi appreciated. CARDIAC - RRR with S1/S2. No murmur, rubs, or gallops appreciated. ABDOMEN - Abdominal contour obese without pulsations or visible masses. BS normoactive all four quadrants. No tenderness, palpable masses, hepatosplenomegaly, or ascites noted. EXTREMITIES - No clubbing or peripheral cyanosis. No pretibial edema present. +2/5 radial and dorsalis pedis pulses palpated throughout. +5/5 strength noted in UE/LE bilaterally. NEUROLOGIC - Cranial nerves II through XII grossly intact. Sensory intact to light touch throughout. PSYCH - A&Ox3 and cooperates fully with examiner. Pt is very pleasant and interacts well with examiner. Results & Data Results & Data ([facility]) Vital Signs (Past 12 Hours) Vital Signs Temp Pulse Resp BP BP Pulse Ox 02/02/21 19:28 36.6 C 100 H 18 72/50 L 96 02/02/21 15:32 37.0 C 111 H 20 83/52 L 96 02/02/21 11:59 118 H 79/49 L 02/02/21 11:15 37.4 C 115 H 21 78/53 L 96 Coding Level of Care Code Critical Care 1st 30-74 mins Diagnoses Admitted to intensive care unit Z78.9 Hypotension I95.9 Acute renal failure N17.9 Oliguria R34 Parotitis K11.20 Sepsis A41.9 Sepsis acute organ dysfunction status: without acute organ dysfunction Sepsis type: sepsis due to unspecified organism Fever R50.9 Fever type: unspecified Leukocytosis D72.829 Leukocytosis type: unspecified Time Spent (min) 63 (1) Sepsis Sepsis acute organ dysfunction status: without acute organ dysfunction Sepsis type: sepsis due to unspecified organism Qualified Code(s): A41.9 - Sepsis, unspecified organism (2) Fever Fever type: unspecified Qualified Code(s): R50.9 - Fever, unspecified (3) Leukocytosis Leukocytosis type: unspecified Qualified Code(s): D72.829 - Elevated white blood cell count, unspecified
[2021-02-02] MEDS ORDERED: Nursing to Pharmacy Communication SCH (21:15)
[2021-02-02] MEDS ORDERED: SODIUM CHLORIDE 0.9% 500 ML IV ONE (21:15)
[2021-02-02 21:37] LABS: Basophils # (auto) 0.04 K/uL (0-0.2); Basophils % (auto) 0.3 %; Eosinophils # (auto) 0.16 K/uL (0-0.5); Eosinophils % (auto) 1.3 %; Hematocrit (blood only) 33.2 % (42-52); Hemoglobin 11.4 g/dL (14.0-18.0); Immature Granulocytes # (auto) 0.13 K/uL (0.00-0.02); Lymphocytes # (auto) 2.19 K/uL (1.2-3.4); Lymphocytes % (auto) 17.2 %; Mean Corpuscular Hemoglobin 27.7 pg (25-34); Mean Corpuscular Hgb Conc 34.3 g/dL (32-36); Mean Corpuscular Volume 80.6 fL (80-100); Mean Platelet Volume 10.8 fL (7.4-10.4); Monocytes # (auto) 0.92 K/uL (0.11-0.59); Monocytes % (auto) 7.2 %; Neutrophils # (auto) 9.31 K/uL (1.4-6.5); Platelet Count 159 K/uL (130-400); RDW Coefficient of Variation 14.6 % (11.5-14.5); RDW Standard Deviation 43.4 fL (36.4-46.3); Red Blood Count 4.12 M/uL (4.7-6.1); White Blood Count 12.75 K/uL (4.8-10.8)
[2021-02-02 21:44] LABS: Oxygen Saturation VBG 74.6 %; pH VBG 7.34 (7.36-7.41)
[2021-02-02 21:51] LABS: Prothrombin Time 10.3 Seconds (9.0-12.0)
[2021-02-02] MEDS: NOREPINEPHRINE/D5W 8 MG/508 ML BAG IV SCH (21:56)
[2021-02-02 22:11] LABS: Albumin Level 1.9 gm/dl (3.4-5.0); BUN Creatinine Ratio 9.1 (10-20); Calcium 7.7 mg/dl (8.5-10.1); Creatinine Clr Calc Pharmacy 49.2 ml/min; Est GFR (African American) 21.8; Est GFR (Non-African American) 18.8; Magnesium 2.2 mg/dl (1.8-2.4); Potassium 3.9 mmol/L (3.5-5.1)
[2021-02-02 22:17] LABS: Bilirubin,Total 0.4 mg/dl (0.2-1); Phosphorus 4.2 mg/dl (2.5-4.9); Total Protein 6.4 gm/dl (6.4-8.2)
[2021-02-02] MEDS ORDERED: AZTREONAM CONSULT ACTIVE PRN (22:17)
[2021-02-02 22:18] LABS: Albumin Globulin Ratio 0.4 (0.9-2); Globulin 4.5 gm/dl (2.5-4.0)
[2021-02-02 22:24] LABS: Urine Potassium 37.4 mmol/L
[2021-02-02 22:28] LABS: Appearance Urine Turbid (Clear); Bacteria Urine Automated Negative (Negative); Blood Urine 3+ (Negative); Color Urine Orange; Epithelial Cell Urine Auto >30 /lpf (0-5); Glucose Urine UA Trace (Negative); Ketones Urine Negative (Negative); Leukocyte Esterase Urine 1+ (Negative); Nitrite Urine Positive (Negative); Protein Urine 4+ (Negative); Specific Gravity Urine > 1.045 (1.000-1.030); Urobilinogen Urine Negative (Negative); WBC Urine Automated >30 /hpf (0-5)
[2021-02-02 22:31] LABS: Protein Creatinine Ratio Urine 3.5 (0-0.2); Total Protein Urine Random 675.6 mg/dl (0-11.9)
[2021-02-02 22:39] LABS: Bilirubin Urine 2+ (Negative)
--- NOTE | 2021-02-02 22:56 | Procedure Note ---
Procedure Note Date of Service February 02, 2021 Procedure: Internal Jugular Central Line Placement Attending: Dr. Winters APC: Gabriel Payton PA-C Indication: Central Drug Administration, Poor Venous Access, Multiple Lab Draws Necessary, etc. Anesthesia: Lidocaine 1% Emergent consent implied in the setting of rapidly decompensated patient with poor peripheral access and need for institution of vasopressors. Verbal consent was obtained from patient. Risk, benefits, and alternatives were discussed with the patient who agrees to proceed with any/all procedures necessary to sustain life. A time-out was completed verifying correct patient, procedure, site, positioning, and implants(s) or special equipment if applicable. Patients RIGHT Neck was cleansed and draped in the typical sterile fashion using Chloraprep. The Internal Jugular Vein and Carotid Artery were identified using ultrasound. The superficial tissue was anesthetized using 4 mL of 1% lidocaine without epinephrine under direct visualization with the ultrasound. After adequate anesthetization was achieved, the Internal Jugular vein was cannulated under direct ultrasound guidance using an introducer needle on a syringe. Good venous blood return was maintained prior to removal of syringe from introducer needle. Using Seldinger Technique, a guide wire was advanced through the introducer needle without resistance. The introducer needle was removed and ultrasound images were obtained of the guide wire within the Internal Jugular Vein and saved to the patients medical record. The dilator was advanced to the vessel without resistance. The dilator was exchanged for the triple lumen catheter which was advanced into the vessel without resistance. The guide wire was re moved intact from the catheter without issue. Claves were placed on each catheter tip with confirmation of good blood flow from each lumen. Each port was easily flushed with sterile saline. The catheter was placed at 16 cm and sutured in place. BioPatch was applied to the catheter and a sterile Tegaderm dressing was applied over the catheter with careful attention to sterility. Patient tolerated procedure well. No immediate complications were met. Post procedure x-ray was completed, placement was appropriate and no pneumothorax was noted. Images obtained are saved for permanent record Procedural Ultrasound Guidance: Procedure Date: 02/02/2021 Indication: Pressors, poor peripheral access, multiple drips Attending: Dr. Winters APC: Gabriel Payton PA-C Artery AND Vein visualized: YES Compressible Vein: YES Guidewire or Short Catheter seen in vein prior to dilation: YES Line confirmed in Vein with ultrasound: YES Images obtained are saved for permanent record. Coding CPT Codes Tubes, Drains, and Vasc Access - Tubes, Drains, and Vasc Access: [id number] Insertion Of Non-tunneled Catheter Age 5 Yrs> ([id number]) Tubes, Drains, and Vasc Access - Tubes, Drains, and Vasc Access: [id number] Ultrasound Guidance For Vascular ([id number]) [facility] [place] Procedure Codes (Charges) Tubes, Drains, and Vasc Access Procedure 1: Tubes, Drains, and Vasc Access: [id number] Insertion Of Non-tunneled Catheter Age 3 Yrs> Procedure 2: Tubes, Drains, and Vasc Access: [id number] Ultrasound Guidance For Vascular
--- NOTE | 2021-02-02 22:57 | Procedure Note ---
Procedure Note Date of Service February 02, 2021 Procedure: Arterial Line Placement Attending: Dr. Winters APC: Gabriel Payton PA-C Indication: Monitoring on Pressors Anesthesia: Lidocaine 1% Emergent consent implied in the setting of rapidly decompensated patient with poor peripheral access and need for institution of vasopressors. Verbal consent was obtained from patient. Risk, benefits, and alternatives were discussed with the patient who agrees to proceed with any/all procedures necessary to sustain life. A time-out was completed verifying correct patient, procedure, site, positioning, and implant(s) or special equipment if applicable. Allens test was performed to ensure adequate perfusion. Patients RIGHT wrist was prepped and dr reshmaed in the usual sterile fashion. Ultrasound guidance was used to aid needle placement. A 20g Arrow arterial line was introduced into the RIGHT Radial artery. Catheter was threaded, and the needle was removed with appropriate blood return. Good waveform was observed. The patient tolerated the procedure well. Confirmation of placement with ultrasound. Blood Loss: Minimal Complications: None Procedural Ultrasound Guidance: Procedure Date: 02/02/2021 Indication: Pressors, Frequent Labs Attending: Dr. Winters APC: Gabriel Payton PA-C Artery Identified: YES Line confirmed in Artery with ultrasound: YES Complications: Failed attempt at obtaining access on the patient's LEFT initially. Cannulated x2 with arterial blood return, easily passed wire, unable to thread catheter into vessel. Procedure terminated and changed to the RIGHT. Patient tolerated procedure: WELL Coding CPT Codes Tubes, Drains, and Vasc Access - Tubes, Drains, and Vasc Access: [id number] Insertion Catheter, Artery ([id number]) [facility] [place] Procedure Codes (Charges) Tubes, Drains, and Vasc Access Procedure 3: Tubes, Drains, and Vasc Access: [id number] Insertion Catheter, Artery
[2021-02-02 23:04] LABS: Amorphous Sediment Urine Present (None Prsent)
[2021-02-02 23:04] LABS: Troponin I 0.43 ng/ml (0-0.045)
[2021-02-02] MEDS: CLINDAMYCIN 600 MG in DEXTROSE 5% 50 ML IV SCH (23:07)
[2021-02-02] MEDS: AZTREONAM 2,000 MG in DEXTROSE 5% 100 ML IV SCH (23:07)
[2021-02-03] MEDS: SODIUM CHLORIDE 0.9% 1000ML 1,000 ML IV SCH ×2 (01:22→08:18)
[2021-02-03 05:07] LABS: Basophils # (auto) 0.03 K/uL (0-0.2); Basophils % (auto) 0.2 %; Eosinophils # (auto) 0.29 K/uL (0-0.5); Eosinophils % (auto) 1.7 %; Hematocrit (blood only) 33.6 % (42-52); Hemoglobin 11.5 g/dL (14.0-18.0); Immature Granulocytes # (auto) 0.11 K/uL (0.00-0.02); Immature Granulocytes % (auto) 0.6 %; Lymphocytes # (auto) 1.55 K/uL (1.2-3.4); Lymphocytes % (auto) 9.1 %; Mean Corpuscular Hemoglobin 27.4 pg (25-34); Mean Corpuscular Hgb Conc 34.2 g/dL (32-36); Mean Corpuscular Volume 80.2 fL (80-100); Mean Platelet Volume 11.1 fL (7.4-10.4); Monocytes # (auto) 1.02 K/uL (0.11-0.59); Neutrophils # (auto) 14.04 K/uL (1.4-6.5); Neutrophils % (auto) 82.4 %; Platelet Count 185 K/uL (130-400); RDW Coefficient of Variation 14.7 % (11.5-14.5); RDW Standard Deviation 43.2 fL (36.4-46.3); Red Blood Count 4.19 M/uL (4.7-6.1); White Blood Count 17.04 K/uL (4.8-10.8)
[2021-02-03 05:35] LABS: Albumin Level 1.9 gm/dl (3.4-5.0); BUN Creatinine Ratio 11.1 (10-20); Calcium 7.4 mg/dl (8.5-10.1); Creatinine Clr Calc Pharmacy 54.8 ml/min; Est GFR (African American) 24.8; Est GFR (Non-African American) 21.4; Magnesium 2.3 mg/dl (1.8-2.4); Potassium 3.6 mmol/L (3.5-5.1)
[2021-02-03 06:05] LABS: Albumin Globulin Ratio 0.4 (0.9-2); Bilirubin,Total 0.4 mg/dl (0.2-1); C Reactive Protein 33.6 mg/dl (0-0.29); Globulin 4.5 gm/dl (2.5-4.0); Phosphorus 4.9 mg/dl (2.5-4.9); Total Protein 6.4 gm/dl (6.4-8.2); Troponin I 7.44 ng/ml (0-0.045)
[2021-02-03] MEDS: CLINDAMYCIN 600 MG in DEXTROSE 5% 50 ML IV SCH ×3 (06:12→21:31)
[2021-02-03] MEDS: AZTREONAM 2,000 MG in DEXTROSE 5% 100 ML IV SCH ×3 (06:13→21:02)
--- NOTE | 2021-02-03 07:31 | Ears,Nose,Throat Progress Note ---
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 Initially improved on IV abx, then with tenderness over L parotid tail/level II/III neck and neck stiffness with ROM to L. CT neck shows retropharyngeal edema without abscess, inflammatory changes L neck with adenopathy, no abscess or subcutaneous emphysema. Stable/improved on repeat CT neck 02/02/21. Airway widely patent on laryngoscopy 02/01/21. Now with SIRS requiring pressors, troponin bump, PRAFUL. Neck symptoms resolved. -No drainable fluid collection on imaging. Clinically ENT symptoms resolved -Continue IV abx -Strict BG control -Further workup of alternative sources of sepsis per ICU team -Will follow peripherally Admission and Anticipated Discharge Date Admission Date: January 28, 2021 Subjective Patient with tachycardia to 120s and BPs 70-80s/50s with oliguria yesterday, transferred to ICU. Central line/a-line placed. UA +nitrites, WBCs. Troponin bump to 7 this AM. PRAFUL with Cr to 3.5 today. Reports resolution of neck pain/tenderness. Neck stiffness also resolved. Abx changed to clindamycin and aztreonam. No throat pain, dysphagia, odynophagia, otalgia, dysphonia, dyspnea/stridor. Physical Exam Physical Exam: Obese No acute distress Normal voice Nonlabored respirations, mild nonproductive cough Neck induration resolved, mildly enlarged palpable L level II/III adenopathy. No overlying skin changes. R IJ central line. No dental abscess Oropharynx clear, no evidence of posterior pharyngeal fullness or erythema Tonsils surgically absent Full neck ROM without stiffness/discomfort Results & Data ([facility]) Vital Signs (Past 12 Hours) Vital Signs Temp Pulse Pulse Resp BP BP BP 02/03/21 06:00 106 H 36 H 02/03/21 05:58 109 H 36 H 101/49 L 02/03/21 05:00 108 H 39 H 02/03/21 04:41 108 H 36 H 92/69 L 02/03/21 04:00 109 H 39 H 02/03/21 03:41 109 H 104/80 02/03/21 03:00 108 H 34 H 02/03/21 02:00 36.5 C 110 H 24 02/03/21 01:42 102 H 29 H 121/91 02/03/21 01:00 103 H 31 H 02/03/21 00:41 101 H 38 H 126/83 02/03/21 00:00 99 H 33 H 02/02/21 23:41 96 H 22 97/66 L 02/02/21 23:28 97 H 25 H 115/81 02/02/21 23:19 94 H 33 H 99/66 L 02/02/21 23:05 95 H 24 95/65 L 02/02/21 23:00 93 H 23 02/02/21 22:35 93 H 23 87/57 L 02/02/21 22:32 92 H 26 H 97/52 L 02/02/21 22:20 91 H 29 H 67/45 L 02/02/21 22:13 92 H 21 77/55 L 02/02/21 21:54 97 H 32 H 69/46 L 02/02/21 21:03 98 H 28 H 72/46 L 02/02/21 20:15 70/40 L 02/02/21 20:03 76/31 L 02/02/21 19:28 36.6 C 100 H 18 72/50 L Pulse Ox 02/03/21 06:00 91 02/03/21 05:58 92 02/03/21 05:00 94 02/03/21 04:41 90 02/03/21 04:00 94 02/03/21 03:41 96 02/03/21 03:00 98 02/03/21 02:00 94 02/03/21 01:42 97 02/03/21 01:00 90 02/03/21 00:41 92 02/03/21 00:00 94 02/02/21 23:41 02/02/21 23:28 92 02/02/21 23:19 97 02/02/21 23:05 95 02/02/21 23:00 95 02/02/21 22:35 96 02/02/21 22:32 96 02/02/21 22:20 95 02/02/21 22:13 95 02/02/21 21:54 92 02/02/21 21:03 94 02/02/21 20:15 02/02/21 20:03 02/02/21 19:28 96 PG Care Time/CCT Total # of Minutes Spent Total Time Spent with Patient: Total time spent is greater than 50% in coordination of care (as documented) at patient's floor/unit and/or counseling patient: Coding Level of Care Code 18380 Subseq Obs Care Lvl 2 Diagnoses Parotitis K11.20
[2021-02-03] MEDS: FAMOTIDINE 20 MG in SYRINGE 3 ML IV SCH ×2 (07:50→21:02)
[2021-02-03] MEDS: INSULIN ASPART 100 UNITS/ML 3 ML PEN SC SCH ×4 (07:52→21:05)
[2021-02-03] MEDS: NOREPINEPHRINE/D5W 8 MG/508 ML BAG IV SCH ×2 (08:19→16:58)
--- NOTE | 2021-02-03 08:28 | XRay Report ---
XR chest 1V portable HISTORY: 35 years-old Male s/p RIGH IJ STATUS post placement of a right IJ central venous catheter COMPARISON: Chest radiograph 01/28/2021, chest CT 01/31/2021 TECHNIQUE: Portable AP view the chest FINDINGS: Cardiac silhouette is enlarged. Status post placement of a right IJ central venous catheter distal ti p in the region of the proximal SVC. No pneumothorax. Pulmonary vascular congestion suggested. No pne umothorax, pleural effusion, airspace consolidation or overt pulmonary edema. Mid thoracic dextroscol iosis. Bones appear grossly intact. The right lateral lung base is partially excluded from the field- of-view. IMPRESSION: Status post placement of a right IJ central venous catheter with distal tip in the region of the proximal SVC. No pneumothorax. ACT 112: Negative or not required by law. The above report was generated using voice recognition software. It may contain grammatical, syntax o r spelling errors. Electronically signed by: Fermin Burns M.D. 02/03/2021 8:26 AM
--- NOTE | 2021-02-03 08:30 | Hospitalist Progress Note ---
Date of Service February 03, 2021 Assessment & Plan (1) Sepsis: (2) Tachycardia: (3) Leukocytosis: (4) Fever: (5) Uncontrolled diabetes mellitus: (6) Bipolar I disorder: (7) Depression: (8) Diabetes mellitus, type II: (9) Tobacco use disorder: (10) ADD (attention deficit disorder): (11) Morbid obesity: Patient now c ATN from [place] Nephropathy, 3 CT scans c IVC since he's been here plus got Vanco. Continue abx but hold Vanco, On Flagyl and Rocephin, Neck seems to be source, Appears to have a UTI, Currently on pressors in the ICU, WBCs up to 17.4, Hepatitis panel is negative, Lyme and EBV pending, IS, CTC was negative, CT Neck noted, no abscess, seen by ENT and no surgery needed. 4L given yesterday and UO was low. ID consult on chart. Nephrology consulted. Labs checked ROS-No Headache, No Visual Changes, No Nausea, No Vomiting, No Fever, No Chills, Less Neck Pain and Stiffness, positive sweats, no Chest Pain, No Palpitations, + SOB, No GLYNN, No Cough, No Sputum, No Wheezing, No Abdominal Pain, No Diarrhea, No Hematemesis, No Hemoptysis, No Unexpected Weight Loss, No Flank pain, No Melena, No Hematochezia, No Frequency, No Urgency, No Burning, No Hematuria, No Rashes, + Diaphoresis. Appetite is Normal Physical Exam Gen-AAO x 3, NAD, afebrile since 02/01, obese Head-NCAT, EOMI, PERRLA, Anicteric Sclera, No Posterior Pharyngeal Erythema Neck-Supple, No JVD, No Thyromegaly, No Masses, No LAD, No Bruits Lungs-Clear to Auscultation Bilaterally, No Rales, No Rhonchi, No Wheezing, No Crepitus Chest-tachycardic, no S4, +S1, +S2, No S3, No Murmurs, No Rubs, No Gallops, No Ectopy Abdomen-Soft, Bowel Sounds Present, Non Tender, Non Distended, No Hepatomegaly, No Splenomegaly, No Palpable Masses, No Rebound, No Rigidity, No Guarding Musculoskeletal-Full Range of Motion Bilaterally, No CVAT Extremities-No Cyanosis, No Clubbing, No Edema Nuero-Cranial Nerves II-XII grossly intact, Motor WNL, DTRs WNL, Strength WNL, Non Focal Psych-Normal Mood Admission and Anticipated Discharge Date Admission Date: January 28, 2021 Results & Data Results & Data ([facility]) Vital Signs (Past 12 Hours) Vital Signs Temp Pulse Resp BP Pulse Ox 02/03/21 06:00 106 H 36 H 91 02/03/21 05:58 109 H 36 H 101/49 L 92 02/03/21 05:00 108 H 39 H 94 02/03/21 04:41 108 H 36 H 92/69 L 90 02/03/21 04:00 109 H 39 H 94 02/03/21 03:41 109 H 104/80 96 02/03/21 03:00 108 H 34 H 98 02/03/21 02:00 36.5 C 110 H 24 94 02/03/21 01:42 102 H 29 H 121/91 97 02/03/21 01:00 103 H 31 H 90 02/03/21 00:41 101 H 38 H 126/83 92 02/03/21 00:00 99 H 33 H 94 02/02/21 23:41 96 H 22 97/66 L 02/02/21 23:28 97 H 25 H 115/81 92 02/02/21 23:19 94 H 33 H 99/66 L 97 02/02/21 23:05 95 H 24 95/65 L 95 02/02/21 23:00 93 H 23 95 02/02/21 22:35 93 H 23 87/57 L 96 02/02/21 22:32 92 H 26 H 97/52 L 96 02/02/21 22:20 91 H 29 H 67/45 L 95 02/02/21 22:13 92 H 21 77/55 L 95 02/02/21 21:54 97 H 32 H 69/46 L 92 02/02/21 21:03 98 H 28 H 72/46 L 94 (1) Sepsis Sepsis acute organ dysfunction status: without acute organ dysfunction Sepsis type: sepsis due to unspecified organism Qualified Code(s): A41.9 - Sepsis, unspecified organism (2) Leukocytosis Leukocytosis type: unspecified Qualified Code(s): D72.829 - Elevated white blood cell count, unspecified (3) Fever Fever type: unspecified Qualified Code(s): R50.9 - Fever, unspecified
--- NOTE | 2021-02-03 08:57 | Nephrology Consultation ---
Date of Consultation February 03, 2021 Assessment & Plan (1) Acute renal failure: Stage 3 nonoliguric PRAFUL from ischemic ATN, in the setting of hypotension/sepsis, plus intense renal vasoconstriction from IV contrast and nsaids. baseline creatinine 0.8 and abrupt uptick in 36 hrs to peak at 3.8 last evening, down to 3.5 today. potassium is ok, even low. bicarb this am low at 16. No indication at ths time for urgent dialysls but cannot rule out need. -change NS to 1/2 NS w/ 75 mEq/L sodium bicarb and 10 mEq/L K also at 100 mL/hr -recheck bmp 1600 recommended -cont to monitor for DKA -low threshold for ABG, repeat CXR -no nsaids, no further IV contrast; if vanco were to be needed again would dose only by level Care coordinated w/ Bob Moya Bouwer and w/ [facility]. Present on Admission?: No (2) Hypotension: pressor dependent currently and would continue these along w/ IVF (changed as above) current rate; watch respiratory status closely; demand ischemia/elevated troponin noted; EF on 02/03 TTE dropped to 40-45% from previous December 2017 50-55% Present on Admission?: Yes History of Present Illness Reason for Consultation: PRAFUL Requesting Physician: Dr Rojas Attending Physician: Huy Rojas, DO History of Present Illness 35 y/o M whom I'm asked to see for PRAFUL after he was moved the ICU yesterday for mgt of pressor dependent hypotension in the setting of abruptly worsened renal function with creatinine going from 0.8>3.6 in about 36 hrs. His creatinine peaked at 3.8 last evening and is 3.5 today. He has made about 1.2 L urine since yesterday AM, including 300+ today. PMH includes DM 2 on insulin (A1c 8.7%), HTN reported (no OP meds for this), asthma, class 3 obesity (BMI 54), bipolar disorder, peritonsillar abscess for which he was admitted in November 2020 for tonsillectomy after I&D x 2, active tobacco abuse 1-2 cigarettes daily; he also had an umbilical wound on presentation which is chronic. His current admission began 01/28 after he presented with about 12h of F, rigors, and myalgias. He met sepsis criteria on admission w/o a definite source of infection, though ultimately he was diagnosed with presumed relapsed pharyngitis. He remained febrile intermittently through 01/31. He was treated w/ broad spectrum antibiotics, starting w/ daptomycin and ertapenem in ER, changed to dapto and meropenem on admission. He has had 4 CT scans since admission w/ IV contrast, including 1 on February 01 and again on February 02. He had 6 doses of Toradol between January 31 and February 02. He also received a loading dose of vancomycin january in the morning and a second dose last evening as well and a dose of flagyl and ceftriaxone per ID recs. Currently his antibiotics are clindamycin and aztreonam. He was also started on Decadron. All admission cultures remain no growth to date. he is receiving normal saline at 100 mL hourly and is on a Levophed drip. with drop in bp yesterday, he received 4.5L of IVF w/ another L so far today; he has had no diuretics or SHERICE/ARB this admission. There was concern for anuria yesterday but once regan was placed pt voided 900 mL. Both infectious diseases and ENT evaluated the patient yesterday for recommendations regarding the suspected relapsing parotitis/pharyngitis. Repeat CT imaging was done February 02 on recommendations of ENT/inf dzs due to worsening clinical status of malaise and ongoing neck stiffness w/ L head turn. He tells me that neck stiffness and L parotid area soreness markedly improved today. Denies sob, chest pain, malaise, decreased po intake, edema, voiding concerns prior to regan placement last evening. Allergies Allergy/AdvReac Type Severity Reaction Status Date / Time aspirin Allergy Unknown Unknown Verified 01/28/21 20:14 Bactrim Allergy Unknown . Verified 02/01/18 00:10 Cephalosporins Allergy Unknown Unknown Verified 02/03/21 10:20 Penicillins Allergy Unknown Unknown Verified 01/28/21 20:14 Sulfa (Sulfonamide Allergy Unknown Unknown Verified 01/28/21 20:14 Antibiotics) sulfamethoxazole Allergy Unknown Unknown Verified 01/28/21 20:14 trimethoprim Allergy Unknown Unknown Verified 01/28/21 20:14 lisinopril AdvReac Mild gi upset Verified 01/28/21 20:14 as per px Home Medications Medication Instructions Recorded Confirmed Type Lantus Solostar U-100 Insulin 50 unit SUBCUT BID 11/05/20 01/28/21 History cyclobenzaprine 5 mg PO TID PRN 11/06/20 01/28/21 History Patient History Medical History Abscess, peritonsillar Acute streptococcal tonsillitis ADD (attention deficit disorder) Asthma, exercise induced Bipolar I disorder Depression Diabetes mellitus with hyperosmolarity without hyperglycemic hyperosmolar nonketotic coma Diabetes mellitus, type II Discharge planning issues DVT prophylaxis Morbid obesity MRSA (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 Seasonal allergies Skin ulcer Strep pharyngitis Tobacco use disorder Surgical History History of surgery on wrist History of tonsillectomy S/P appendectomy Family History Mother Hypertension Father Coronary heart disease Diabetes Brother Diabetes Other Allergies Asthma Cancer Hearing loss Heart disease No family history of adverse response to anesthesia No family history of bleeding disorder Social History Smoking Status: Current every day smoker Tobacco Type: Cigarettes Second Hand Exposure: No; Do You Dip or Chew Tobacco: No; Hx Alcohol Use: Yes Hx Substance Use: No Preferred Language: American Communication Ability: Effective Visual Impairment: No Limitations Hearing Ability: Normal Third Rail Installer Required: No Beliefs That Will Affect Care: None Current Living Situation: Significant Other Other Information That Helps Us Care for You: No Feels Safe at Home: Yes Safety Concerns: Feels Safe At This Time Assistive Devices: None Review of Systems Review of Systems: All systems reviewed & are unremarkable except as noted in HPI & below Physical Exam Constitutional: well developed, well nourished, + morbidly obese and cooperative; no acute distress Eyes: EOM intact bilaterally ENMT: Ears: no external ear abnormality Nose: no external nose abnormality Mouth: oral mucous membranes not dry Neck: + thick neck; no nuchal rigidity some redness poorly demarcated angle of L jaw Respiratory: normal respiratory effort, + cough and able to speak in complete sentences (but slight dyspnea w/ conversation) Auscultation: + diminished lung sounds; no crackles, no rhonchi and no wheezes Cardiovascular: Rate/Rhythm: + tachycardic Extremities: no edema Gastrointestinal (Abdomen): Inspection/Auscultation: normal bowel sounds; abdomen not distended Percussion/Palpation: abdomen soft; abdomen nontender Musculoskeletal: Extremities: strength 5/5 throughout Skin: no rashes, warm and dry Neurologic: varela, fluent speech, no tremor Psychiatric: A+Ox3, euthymic affect Speech: normal rate/rhythm/volume of speech Insight: good insight Judgement: good judgement Genitourinary: regan w/ ample urine Results & Data ([facility]) Vital Signs (Past 12 Hours) Vital Signs Temp Pulse Resp BP Pulse Ox 02/03/21 06:00 106 H 36 H 91 02/03/21 05:58 109 H 36 H 101/49 L 92 02/03/21 05:00 108 H 39 H 94 02/03/21 04:41 108 H 36 H 92/69 L 90 02/03/21 04:00 109 H 39 H 94 02/03/21 03:41 109 H 104/80 96 02/03/21 03:00 108 H 34 H 98 02/03/21 02:00 36.5 C 110 H 24 94 02/03/21 01:42 102 H 29 H 121/91 97 02/03/21 01:00 103 H 31 H 90 02/03/21 00:41 101 H 38 H 126/83 92 02/03/21 00:00 99 H 33 H 94 02/02/21 23:41 96 H 22 97/66 L 02/02/21 23:28 97 H 25 H 115/81 92 02/02/21 23:19 94 H 33 H 99/66 L 97 02/02/21 23:05 95 H 24 95/65 L 95 02/02/21 23:00 93 H 23 95 02/02/21 22:35 93 H 23 87/57 L 96 02/02/21 22:32 92 H 26 H 97/52 L 96 02/02/21 22:20 91 H 29 H 67/45 L 95 02/02/21 22:13 92 H 21 77/55 L 95 02/02/21 21:54 97 H 32 H 69/46 L 92 02/02/21 21:03 98 H 28 H 72/46 L 94 Laboratory Results 05/04/21 04:51 02/03/21 04:51 UA > Diagnostic Findings CT abdomen pelvis January 28 with IV contrast FINDINGS: The imaged inferior cardiac chambers are unremarkable. Respiratory motion artifact and patient body habitus limits the study. Clear lung bases. No pneumatosis or pneumoperitoneum. The spleen is mildly enlarged measuring 13.9 cm. Hepatomegaly suggested hepatic steatosis. No evidence of cirrhosis. Mildly contracted gallbladder. The pancreas and adrenal glands are unremarkable. The kidneys are within normal limits. No hydronephrosis. Unremarkable urinary bladder and prostate. Small fat filled left inguinal hernia. Aorta and IVC are unremarkable. There is no adenopathy. No bowel obstruction or bowel wall thickening. Mild fecal retention. Appendectomy. No ascites or mesenteric inflammation. Diastases recti. Mild skin thickening of the periumbilical tissues. No abscess. No acute fracture. Mild degenerative changes of the lumbar spine. IMPRESSION: 1. No bowel obstruction or bowel wall thickening. 2. Hepatosplenomegaly with suggested hepatic steatosis. 3. Appendectomy. CT chest January 28 with IV contrast FINDINGS: No mediastinal or hilar lymphadenopathy. No pleural effusion or pneumothorax. Limited views of the upper abdomen demonstrate mild hepatic steatosis and a normal spleen. There is mild motion artifact within the lung bases. No focal lung consolidations to suggest pneumonia. Normal caliber thoracic aorta with no evidence for dissection. The heart is normal in size. The main pulmonary arteries appear patent. IMPRESSION: No significant abnormality identified within the chest. CT chest January 1 noncontrast: Without acute intrathoracic findings including no focal pulmonary consolidation or pathologic adenopathy Soft tissue neck CT with IV contrast May 2 Mildly motion degraded exam. Asymmetric enlargement with heterogeneity of the left palatine tonsil with surrounding inflammatory stranding. Probable enlarged lymph node within the left parapharyngeal tissues on image 78 measures 1.4 x 1.0 cm. Pathologically enlarged left cervical chain lymph nodes measure up to 1.5 x 1.8 cm. There is retropharyngeal edema and fluid measuring up to 2.8 x 0.9 cm in transverse and AP dimension extending from C2-C3 to the C5-C6 levels. No loculated peripherally enhancing fluid collection. 11 mm right thyroid nodule. Enlargement of the uvula. There is mild to moderate narrowing of the oral pharynx and hypopharynx. The epiglottis, glottis and subglottic airway appears unremarkable. Lung apices are clear. No pneumothorax. No acute fracture. Degenerative changes of the cervical spine. IMPRESSION: 1. Heterogeneity with edema and enlargement of the adenoid and palatine tonsils and uvula is suggestive of tonsillitis/pharyngitis. Inflammatory stranding is most pronounced within the left parapharyngeal tissues and left neck with r etropharyngeal edema/phlegmon extending from the level of C2-C3 to the level C5- C6 measuring up to 1.5 x 1.8 cm. No discrete abscess identified at this time. 2. Pathologically enlarged left parapharyngeal and cervical chain lymph nodes are favored to be reactive. Soft tissue neck CT with IV contrast May 3 FINDINGS: The visualized portions of the lung apices are unremarkable. There is a 14 mm right lobe thyroid nodule. This remains unchanged from the prior study. No salivary gland masses are visualized. There is persistent left cervical lymphadenopathy, likely reactive. The epiglottis appears normal. There is no evidence of retropharyngeal abscess. There is tonsillar and adenoidal hypertrophy. There is left tonsillar edema. There is no CT evidence of a discrete peritonsillar abscess. There is no evidence of airway compromise. There is minimal inflammatory infiltration of the left parapharyngeal space. IMPRESSION: 1. Motion degraded study 2. Tonsillar and adenoidal hypertrophy with left tonsillar edema and parapharyngeal edema. No CT evidence of a focal peritonsillar abscess 3. No evidence of airway compromise 4. Persistent left cervical lymphadenopathy likely reactive. Follow-up to document resolution recommended. 5. Stable right thyroid nodule.
[2021-02-03] MEDS ORDERED: INSULIN GLARGINE SOLOSTAR 100 UNITS/ML 3 ML PEN SC SCH ×3 (09:00→21:00)
[2021-02-03] MEDS ORDERED: INSULIN GLARGINE SOLOSTAR 100 UNITS/ML 3 ML PEN SC ONE ×2 (09:45→12:15)
[2021-02-03] MEDS ORDERED: CALCIUM CHLORIDE 10% 1,000 MG in SODIUM CHLORIDE 0.9% 50 ML IV ONE (10:00)
[2021-02-03] MEDS ORDERED: POTASSIUM CHLORIDE / WTR 20 MEQ/100 ML PLCT IV ONE (10:00)
[2021-02-03] MEDS ORDERED: HEPARIN SOD 5,000 UNIT/0.5 ML VIAL SQ ONE (10:00)
--- NOTE | 2021-02-03 11:29 | Critical Care Progress Note ---
Date of Service February 03, 2021 Assessment & Plan (1) Acute renal failure: Reason Critically Ill: 35-year-old male with acute renal failure and DKA. Requiring vasopressor support and insulin drip. NEURO - CAM ICU: NEGATIVE - A/O x3 - Delirium precautions CARDIAC/VASCULAR - Hypotension likely in the setting of acute renal failure. Possible sepsis but unknown source of infection. - Initially resuscitated with 4 L IV fluids on 02/03. - Now requiring vasopressor support; currently at levophed 0.7. - Monitor on tele. - Continue IVF per nephro recommendations as noted below. Elevated Troponin - Troponin elevated at 7.44; will continue to trend troponin q6h until peak - ECHO 02/03: LVEF 40-45%. Study technically limited but grossly normal valvular structure and function. LV moderately dilated. Left atrium normal size. RV and right atrium not well visualized. - Previous ECHO from 12/06/17 with LVEF of 50-55%. - Will likely need a f/u ECHO RESPIRATORY - - History of asthma - Saturating well on room air. - Patient reports persistent cough. Has had CXR and multiple CTs for evaluation. - Procal now elevated at 6.42, suspect elevation in procal associated with acute renal failure. Will recheck procal in 48 hours - Chest CT w/ contrast 01/28: No significant abnormality identified within the chest. - Chest CT w/o contrast 01/31: No acute intrathoracic findings. No evidence of focal pulmonary consolidation. No evidence of pathologic adenopathy. - CXR 02/02: No pneumothorax. Pulmonary vascular congestion suggested. No pneumothorax, pleural effusion, airspace consolidation or overt pulmonary edema. GI/NUTRITION - - No concerns at this point. - Prophylaxis: Famotidine RENAL/LYTES - Acute renal failure: - Multifactorial ATN secondary to NSAID use, antibiotic use (vancomycin). Notably, he has had [address] scans w/ IV contrast during this hospitalization (within the past 6 days). He was also receiving Toradol and vancomycin. - Cr 3.45 today (was 0.76 on admission). - Nephrology consulted. Appreciate their assistance and recommendations. - Will start IVF with 1/2 NS with 75 mEq/L sodium bicarb + 10 mEq potassium. - Will repeat BMP this afternoon; continue to trend BMP q6h as noted below - Continue to hold all nephrotoxic agents. - Regan in place - Strict I&Os. ENDO - DKA - Hx of uncontrolled DM-II; most recent A1c 8.7% (01/29) - Beta-hydroxy elevated at 23.02 today - Aggressive fluid resuscitation. Will give 2 L bolus with LR in addition to IVFs above. - Will start patient on insulin drip. - Continue to monitor BSGs per unit protocol - Will recheck beta-hydroxybutyric acid qAM, VBG qAM, BMP/mag/phos q6h HEME - Stable H&H ID - - Admitted with concerns for possible sepsis. Possible LEFT sided neck abscess/parotitis. ENT consulted; appreciate their assistance and recommendations. Per ENT, no drainable fluid collection on imaging and clinicall y ENT sxs resolved; recommend continuing IV abx. - Unsure of current source of infection - Previously on multiple different antibiotics including vancomycin, ceftriaxone, and Flagyl. - ID previously consulted due to the concerns of sepsis with initial ID consult yesterday, 02/02. - Abx changed to Clindamycin and aztreonam on 02/02. Will continue Clindamycin and aztreonam at this time. Abx management per ID. - Will hold on any nephrotoxic Rx at this time 2/2 renal injury. - Monitor CBC qAM LINES/IV ACCESS - PIVs x1, RIGHT IJ CVL, RIGHT Radial Art Line, Regan DVT PROPHYLAXIS - Lovenox SCDs (2) Sepsis: (3) Hypotension: (4) Uncontrolled diabetes mellitus: (5) Morbid obesity: Admission and Anticipated Discharge Date Admission Date: January 28, 2021 Supervising Physician Co-Signing Physician Notes Patient seen and examined. Discussed on multidisciplinary rounds and with bedside ICU nurse. Agree with assessment plan as noted by the family practice resident with the following exceptions. 35-year-old male transferred to the ICU due to hypotension and acute renal failure which is likely multifactorial. He appears to be in DKA as well. He has received multiple courses of antibiotics but it is unclear what the source of infection is currently. Discussed with ENT, no evidence of abscess or phegmon. ID consultation has been obtained and I will defer additional antibiotics to ID. He has been initiated on an insulin infusion. We will continue to trend electrolytes every 6 hours and replace as needed. He did have reduced ejection fraction on his echocardiogram. It is unclear if this is stunned myocardium or not. We will continue to trend troponin and follow hemodynamics. Will need follow up echo on 4 weeks and cards evaluation if EF remains reduced. He needs additional IV fluids. His random cortisol is low at 27 so we will initiate replacement for relative adrenal insufficiency. total CC time 48 min including discussion on multidisciplinary rounds, with family practice resident, nephrology, and bedside critical care nurse Subjective Patient seen and evaluated at bedside this morning. He states that he is overall feeling well. Patient states that he "has been trying to think of what made his neck better" and he notes that around 299 morning (2 days ago), he was having a bowel movement when he had a sudden episode of coughing and subsequently expectorated a "large glob of phlegm." He states that after that his sore throat improved and his neck pain also resolved. Patient notes a persistent cough but denies persistent sputum production. Patient also complains of "difficulty urinating" described as feeling the urge to urinate but being unable to do so; for this problem, he did have a regan cath placed last night which has provided relief. He states that he otherwise "feels normal" and he denies CP, SOB, abd pain, nausea, or vomiting. Review of Systems Constitutional: no fever and no chills Eyes: no problem reported Ear, Nose, Mouth, Throat: no nasal congestion and no sore throat Respiratory: + cough; no dyspnea and no pain on inspiration Cardiovascular: no chest pain, no radiating jaw, neck or arm pain and no palpitations Gastrointestinal: no abdominal pain, no nausea and no vomiting Genitourinary: + difficulty urinating Musculoskeletal: no swelling Neurologic: no dizziness, no headache(s) and no confusion Physical Exam Physical Exam: GENERAL: Morbidly obese male,appears stated age, laying supine in bed in no acute distress. Vital signs reviewed as above. EYES: PERRLA. EOMI. Anicteric sclerae. HENT: Moist mucous membranes. No pharyngeal erythema or exudates. Left neck without tenderness to palpation. Right IJ in place. Rotation of neck to the right is limited due to IJ placement; otherwise, patient with full active range of motion in rotation, flexion, extension, and sidebending. RESPIRATORY: Clear to auscultation bilaterally. No wheezing, rales, or rhonchi. CARDIOVASCULAR: Distant heart sounds but regular rate and rhythm. No murmurs. ABDOMEN: Obese abdomen that is soft and non-tender and non-distended. No palpable masses. Normal bowel sounds. GENITOURINARY: Regan catheter in place. EXTREMITIES: No edema. Non-tender. SKIN: Warm, dry. No rashes. NEUROLOGIC: A/O x3. No focal neurological deficits. CN II-XII intact. PSYCHIATRIC: Cooperative. Appropriate mood and affect. Results & Data Results & Data ([facility]) Vital Signs (Past 12 Hours) Vital Signs Temp Pulse Resp BP Pulse Ox 02/03/21 09:15 37.0 C 103 H 36 H 92 02/03/21 09:00 107 H 35 H 92 02/03/21 08:45 103 H 35 H 93 02/03/21 08:40 104 H 30 H 95/53 L 91 02/03/21 08:30 105 H 37 H 94 02/03/21 08:17 104 H 37 H 99/62 L 96 02/03/21 08:15 106 H 28 H 94 02/03/21 08:00 106 H 38 H 104/51 L 93 02/03/21 07:45 107 H 36 H 92 02/03/21 07:30 108 H 24 94 02/03/21 07:15 108 H 32 H 93 02/03/21 07:00 109 H 36 H 94 02/03/21 06:45 107 H 35 H 93 02/03/21 06:00 106 H 36 H 91 02/03/21 05:58 109 H 36 H 101/49 L 92 02/03/21 05:00 108 H 39 H 94 02/03/21 04:41 108 H 36 H 92/69 L 90 02/03/21 04:00 109 H 39 H 94 02/03/21 03:41 109 H 104/80 96 02/03/21 03:00 108 H 34 H 98 02/03/21 02:00 36.5 C 110 H 24 94 02/03/21 01:42 102 H 29 H 121/91 97 02/03/21 01:00 103 H 31 H 90 02/03/21 00:41 101 H 38 H 126/83 92 02/03/21 00:00 99 H 33 H 94 02/02/21 23:41 96 H 22 97/66 L 02/02/21 23:28 97 H 25 H 115/81 92 Resident Activity Tracking Resident Involvement: Resident Care Provided Care Provided: Adult Hospital Medicine (1) Sepsis Sepsis acute organ dysfunction status: without acute organ dysfunction Sepsis type: sepsis due to unspecified organism Qualified Code(s): A41.9 - Sepsis, unspecified organism
[2021-02-03] MEDS ORDERED: STAT IV STA (11:44)
[2021-02-03] MEDS ORDERED: SODIUM BICARBONATE 8.4% 75 MEQ, POTASSIUM CHLORIDE 10 MEQ in SODIUM CHLORIDE 0.45 % 1,0... IV SCH (11:45)
[2021-02-03] MEDS ORDERED: PHARMACY GLYCEMIC MGMT CONSULT PRN (11:56)
--- NOTE | 2021-02-03 12:15 | Pharmacy Report ---
Pharmacy Glycemic Short Note 2 - Date of Service February 03, 2021 - Glycemic Short BSG Results (Last 24 hours): 02/02/21 02/02/21 02/02/21 16:21 16:37 20:36 Glucose 159 H POC Glucose 169 H 143 H 02/02/21 02/03/21 02/03/21 21:22 04:51 07:26 Glucose 148 H 191 H POC Glucose 209 H 02/03/21 11:32 Glucose POC Glucose 212 H OUTPATIENT ANTIDIABETIC REGIMEN: * Lantus 50 units BID * A1c = 8.7% 01/29/21 ASSESSMENT: * Type 2 diabetic transferred to ICU secondary to septic shock, worsening PRAFUL * He remains in the ICU this AM and is still requiring norepi for pressor support * 2 consecutive BSGs > 140, triggering auto pharmacy consult for glycemic control * BSGs elevated since starting pressor * Pt received half his usual Lantus dose this AM, will give supplemental doses - will also increase Novolog dose substantially and correct more frequently over next 24 hrs * Patient does have AG acidosis in the setting of PRAFUL, however also has elevated BOHB. Patient may need insulin drip PLAN FOR INPATIENT GLYCEMIC CONTROL: * Basal insulin * Lantus 10 units additional w/ breakfast + 10 units additional w/ lunch (for a total of 45 units), then increase to 40 units BID * Bolus insulin * NovoLog per scale ACHS and at 0000 + 0400 * Goal Range: Low 110 mg/dL - High 140 mg/dL * Correction Factor: 15 mg/dL/unit * Nutritional / Prandial insulin per carb ratio of 1 unit per 5 grams CHO consumed PLAN FOR DISCHARGE: * to be determined
[2021-02-03] MEDS: ACETAMINOPHEN 325 MG TAB PO PRN (13:30)
[2021-02-03] MEDS ORDERED: LACTATED RINGER'S 2,000 ML IV ONE (13:40)
[2021-02-03] MEDS: INSULIN REGULAR 250 UNITS in SODIUM CHLORIDE 0.9% 247.5 ML IV SCH (13:59)
[2021-02-03 14:39] LABS: BUN Creatinine Ratio 12.6 (10-20); Calcium 8.1 mg/dl (8.5-10.1); Creatinine Clr Calc Pharmacy 58.9 ml/min; Est GFR (Non-African American) 23.3; Magnesium 2.6 mg/dl (1.8-2.4); Potassium 3.7 mmol/L (3.5-5.1)
[2021-02-03 14:47] LABS: Troponin I 3.41 ng/ml (0-0.045)
--- NOTE | 2021-02-03 15:23 | Billing Data ---
Date of Service February 03, 2021 Coding Level of Care Code Critical Care 1st - mins
[2021-02-03] MEDS: FLUDROCORTISONE ACETATE 0.1 MG TAB PO SCH (16:07)
[2021-02-03] MEDS: HYDROCORTISONE SOD 50 MG in SYRINGE 0 ML IV SCH ×2 (16:57→23:58)
[2021-02-03 20:15] LABS: BUN Creatinine Ratio 13.8 (10-20); Calcium 8.5 mg/dl (8.5-10.1); Creatinine Clr Calc Pharmacy 65.1 ml/min; Est GFR (African American) 30.5; Est GFR (Non-African American) 26.3; Magnesium 2.7 mg/dl (1.8-2.4); Potassium 3.6 mmol/L (3.5-5.1)
[2021-02-03 20:23] LABS: Phosphorus 4.7 mg/dl (2.5-4.9); Troponin I 2.01 ng/ml (0-0.045)
[2021-02-03] MEDS: SODIUM BICARBONATE IV SCH ×2 (21:01→21:26)
[2021-02-03] MEDS: POTASSIUM CHLORIDE IV SCH ×2 (21:01→21:26)
[2021-02-03] MEDS: D5W IV SCH ×2 (21:01→21:26)
[2021-02-03] MEDS: [UNRECOGNIZED DRUG - OTHER] IV SCH ×2 (21:01→21:26)
[2021-02-03] MEDS: HEPARIN SOD 5,000 UNIT/0.5 ML VIAL SQ SCH (21:03)
[2021-02-04] MEDS ORDERED: INSULIN ASPART 100 UNITS/ML 3 ML PEN SC SCH
[2021-02-04] MEDS: NOREPINEPHRINE/D5W 8 MG/508 ML BAG IV SCH ×4 (01:24→21:21)
[2021-02-04 02:16] LABS: Hematocrit (blood only) 31.7 % (42-52); Hemoglobin 10.9 g/dL (14.0-18.0); Mean Corpuscular Hemoglobin 27.7 pg (25-34); Mean Corpuscular Hgb Conc 34.4 g/dL (32-36); Mean Corpuscular Volume 80.5 fL (80-100); Mean Platelet Volume 10.2 fL (7.4-10.4); Platelet Count 245 K/uL (130-400); RDW Coefficient of Variation 14.8 % (11.5-14.5); RDW Standard Deviation 43.9 fL (36.4-46.3); Red Blood Count 3.94 M/uL (4.7-6.1); White Blood Count 9.54 K/uL (4.8-10.8)
[2021-02-04 02:17] LABS: Base Excess VBG -4.9 mEq/L; HCO3 VBG 20 mmol/L; Oxygen Saturation VBG < 60.0 %; PCO2 VBG 36 mmHg (38-50); PO2 VBG 33 mmHg; pH VBG 7.36 (7.36-7.41)
[2021-02-04 02:31] LABS: BUN Creatinine Ratio 15.6 (10-20); Creatinine Clr Calc Pharmacy 73.7 ml/min; Est GFR (African American) 35.4; Est GFR (Non-African American) 30.6; Magnesium 2.7 mg/dl (1.8-2.4); Potassium 4.1 mmol/L (3.5-5.1)
[2021-02-04 02:53] LABS: Beta-Hydroxybutyrate 3.52 mg/dl (0.2-2.81); Phosphorus 4.9 mg/dl (2.5-4.9); Troponin I 1.42 ng/ml (0-0.045)
[2021-02-04 03:13] LABS: Basophils # (auto) 0.04 K/uL (0-0.2); Basophils % (auto) 0.4 %; Eosinophils # (auto) 0.09 K/uL (0-0.5); Eosinophils % (auto) 0.9 %; Immature Granulocytes # (auto) 0.07 K/uL (0.00-0.02); Immature Granulocytes % (auto) 0.7 %; Lymphocytes # (auto) 1.21 K/uL (1.2-3.4); Lymphocytes % (auto) 12.7 %; Monocytes # (auto) 0.63 K/uL (0.11-0.59); Monocytes % (auto) 6.6 %; Neutrophils % (auto) 78.7 %; RBC Morphology Unremarkable
[2021-02-04] MEDS: AZTREONAM 2,000 MG in DEXTROSE 5% 100 ML IV SCH ×3 (05:31→21:24)
[2021-02-04] MEDS: D5W IV SCH (05:32)
[2021-02-04] MEDS: HYDROCORTISONE SOD 50 MG in SYRINGE 0 ML IV SCH (05:32)
[2021-02-04] MEDS: POTASSIUM CHLORIDE IV SCH (05:32)
[2021-02-04] MEDS: SODIUM BICARBONATE IV SCH (05:32)
[2021-02-04] MEDS: CLINDAMYCIN 600 MG in DEXTROSE 5% 50 ML IV SCH ×3 (05:32→21:24)
[2021-02-04] MEDS: [UNRECOGNIZED DRUG - OTHER] IV SCH (05:32)
--- NOTE | 2021-02-04 06:31 | XRay Report ---
XR chest 1V portable CLINICAL HISTORY: eval CVL 2/2 pt near pulling COMPARISON STUDY: Chest CT January 31, 2021. Chest radiograph February 02, 2021. FINDINGS: Internal jugular central line remains in place. The catheter has been slightly withdrawn. T he tip object over the proximal SVC. There is no pneumothorax or pleural effusion. Cardiomegaly is un changed. Pulmonary vascular congestion is unchanged. Apparent left basilar opacity is noted. This may be artifactual. IMPRESSION: 1. Right internal jugular central line slightly withdrawn. Catheter tip projects over the proximal SV C. 2. No pneumothorax. 3. No change in pulmonary vascular congestion. 4. Apparent left basilar opacity. Artifact is favored over airspace disease. ACT 112: Negative or not required by law. Electronically signed by: Stephan Ortiz M.D. 02/04/2021 6:29 AM
[2021-02-04] MEDS ORDERED: VANCOMYCIN TROUGH ONE (07:30)
--- NOTE | 2021-02-04 08:07 | Critical Care Progress Note ---
Date of Service February 04, 2021 Assessment & Plan (1) Acute renal failure: Reason Critically Ill: 35-year-old male with acute renal failure and DKA who presented to ICU due to need for vasopressor support; also found to be in DKA requiring insulin drip. NEURO - CAM ICU: NEGATIVE - A/O x3 at this time - Does recall the episode of acting out his dream last night; denies a hx of this at home; denies hx of PTSD - Continue delirium precautions CARDIAC/VASCULAR - Hypotension likely in the setting of acute renal failure. Possible sepsis but unknown source of infection. - Wean and discontinue levophed - Start midodrine 5mg po TID. - Monitor on tele. - Discontinue IVF - Maintain maps > 65 Elevated Troponin - Troponin peaked at 7.44 on 02/03 or 0451; now down to 1.42 - ECHO 02/03: LVEF 40-45%. Study technically limited but grossly normal valvular structure and function. LV moderately dilated. Left atrium normal size. RV and right atrium not well visualized. - Previous ECHO from 12/06/17 with LVEF of 50-55%. - Recommend repeat ECHO in 4 weeks. RESPIRATORY - - History of asthma - Saturating well on room air. - Patient reports persistent cough. Has had CXR and multiple CTs for evaluation. - Procal now elevated at 6.42, suspect elevation in procal associated with acute renal failure. Will recheck procal in 48 hours (tomorrow AM). - Chest CT w/ contrast 01/28: No significant abnormality identified within the chest. - Chest CT w/o contrast 01/31: No acute intrathoracic findings. No evidence of focal pulmonary consolidation. No evidence of pathologic adenopathy. - CXR 02/02: No pneumothorax. Pulmonary vascular congestion suggested. No pneumothorax, pleural effusion, airspace consolidation or overt pulmonary edema. GI/NUTRITION - - No concerns at this point. - Discontinue famotidine today RENAL/LYTES - Acute renal failure: - Multifactorial ATN secondary to NSAID use, antibiotic use (vancomycin), and contrast(4 [address] w/ IV contrast since admission). - Cr is now downtrending (peaked at 3.84 on 02/02). It is 2.28 today (was 0.76 on admission). - Nephrology consulted. Appreciate their assistance and recommendations. - Continue to trend BMP q6h as noted below - Continue to hold all nephrotoxic agents. Relative Adrenal Insufficiency - Random cortisol low at 27 on 02/03 -- initiated replacement for relative adrenal insufficiency - Due to vivid dream last night, will discontinue the hydrocortisone IV and start hydrocortisone 25 mg po BID - Addison in place - Strict I&Os. ENDO - DKA - Hx of uncontrolled DM-II; most recent A1c 8.7% (01/29) - Beta-hydroxy 23.02 on 02/03; it is 3.52 today - Will discontinue IVF and insulin drip - Plan for lantus and ISS per glycemic protocol - Continue to monitor BSGs per unit protocol - Will recheck beta-hydroxybutyric acid qAM, VBG qAM, BMP/mag/phos q6h HEME - Stable H&H ID - - Admitted with concerns for possible sepsis. Possible LEFT sided neck abscess/parotitis. ENT consulted; appreciate their assistance and recommendations. Per ENT, no drainable fluid collection on imaging and clinically ENT sxs resolved; recommend continuing IV abx. - Unsure of current source of infection - Previously on multiple different antibiotics including vancomycin, ceftriaxone, and Flagyl. - ID previously consulted due to the concerns of sepsis with initial ID consult 02/02. - Abx changed to Clindamycin and aztreonam on 02/02. Will continue Clindamycin and aztreonam at this time. Abx management per ID. - Will hold on any nephrotoxic Rx at this time 2/2 renal injury. - Monitor CBC qAM LINES/IV ACCESS - PIVs x1, RIGHT IJ CVL, RIGHT Radial Art Line, Addison DVT PROPHYLAXIS - Lovenox SCDs (2) Sepsis: (3) Hypotension: (4) Uncontrolled diabetes mellitus: (5) Morbid obesity: Admission and Anticipated Discharge Date Admission Date: January 28, 2021 Supervising Physician Co-Signing Physician Notes Patient seen and examined. Discussed on multidisciplinary rounds. The patient's pressure requirement has decreased slightly. He had an acute episode of confusion last night. Unclear if this is related to sleepwalking or other potential parasomnia. The patient apparently has had episodes like this in the past but none recently. There was a temporal relationship to the administration of steroids but the dose is quite low and steroid psychosis is typically not commonly seen at this dose. His white count is normal. He denies any sore throat or other localizing infectious symptoms. Were starting him on midodrine to see if we can support his blood pressure. Continue to defend a mean arterial pressure of around 65. We will try and wean pressors to off. Urine output is improving. We will discontinue the insulin infusion and transition to subcutaneous insulin and sliding scale. His blood gas continues to demonstrate slight metabolic acidosis but I suspect this may be related more to his acute kidney injury than DKA as his beta hydroxybutyrate has significantly cleared. His troponin is peaked and is now downtrending. Echo as noted previously. We will continue to defer decisions regarding antimicrobial therapy to ID. If the patient can be weaned off vasoactive supportive medications, he can likely transfer to the floor under the care of the hospitalist and critical care services will sign off. The above recommendations and plan were discussed with the patient, bedside critical care nurse, family practice resident, and on multidisciplinary rounds. Subjective Patient seen and evaluated at bedside this morning. States that he overall "feels great" this AM but he does recall "an event overnight." Patient states that he was having a vivid dream in which he was visiting a friend in an office building and then he started acting out the dream. He recalls standing in the corner of the room; per bedside nurse, patient had ripped off his radiation monitor leads and tugged at his IJ (did not dislodge). Patient states that he does not typically out out dreams nor does he sleep walk or have a hx of PTSD. He is awake, alert, and appropriately conversive this AM. Ate his breakfast without difficulty. Feels the urge to have a BM. Reports persistent cough that is somewhat improving. Denies SOB, CP, abd pain, n/v, sore throat, nasal congestion, SAM, lightheaded/dizzy, or any other symptoms. Patient remains on levophed currently at .05. Also remains on insulin drip. Review of Systems Constitutional: no fever, no chills and no body aches Eyes: no problem reported Ear, Nose, Mouth, Throat: no nasal congestion and no sore throat Respiratory: + cough; no dyspnea Cardiovascular: no chest pain Gastrointestinal: no abdominal pain, no nausea, no vomiting, no constipation and no diarrhea/loose stools Musculoskeletal: no swelling Neurologic: no dizziness and no headache(s) Physical Exam Physical Exam: GENERAL: Morbidly obese male,appears stated age, laying supine in bed in no acute distress. Vital signs reviewed as above. EYES: PERRLA. EOMI. Anicteric sclerae. HENT: Moist mucous membranes. No pharyngeal erythema or exudates. No neck tenderness to palpation, especially in left neck. Full active ROM of neck. RESPIRATORY: Clear to auscultation bilaterally. No wheezing, rales, or rhonchi. CARDIOVASCULAR: Distant heart sounds but regular rate and rhythm. No murmurs. ABDOMEN: Obese abdomen that is soft and non-tender and non-distended. No palpable masses. Normal bowel sounds. GENITOURINARY: Addison catheter in place. EXTREMITIES: No edema. Non-tender. SKIN: Warm, dry. No rashes. NEUROLOGIC: A/O x3. No focal neurological deficits. CN II-XII intact. PSYCHIATRIC: Cooperative. Appropriate mood and affect. Results & Data Results & Data ([facility]) Vital Signs (Past 12 Hours) Vital Signs Temp Pulse Resp BP Pulse Ox 02/04/21 06:38 76 6 L 109/64 97 02/04/21 06:30 78 27 H 96 02/04/21 06:22 77 1 L 111/63 96 02/04/21 06:15 76 8 L 96 02/04/21 06:08 78 7 L 97/65 L 96 02/04/21 06:00 78 0 L 97 02/04/21 05:52 81 27 H 111/60 92 02/04/21 05:45 78 25 H 96 02/04/21 05:37 79 26 H 86/54 L 96 02/04/21 05:30 78 26 H 93 02/04/21 05:22 83 25 H 95/58 L 92 02/04/21 05:15 79 27 H 94 02/04/21 05:08 79 27 H 93/56 L 94 02/04/21 05:00 79 91 02/04/21 04:53 80 101/50 L 94 02/04/21 04:45 78 26 H 94 02/04/21 04:37 80 28 H 108/76 96 02/04/21 04:30 76 94 02/04/21 04:23 78 23 75/45 L 95 02/04/21 04:15 77 21 94 02/04/21 04:09 80 24 74/40 L 85 L 02/04/21 04:00 83 21 95 02/04/21 03:45 79 25 H 93 02/04/21 03:37 79 24 78/45 L 95 02/04/21 03:30 80 24 94 02/04/21 03:22 81 29 H 79/48 L 95 02/04/21 03:15 79 21 95 02/04/21 03:07 80 26 H 78/50 L 95 02/04/21 03:00 37.0 C 84 25 H 96 02/04/21 02:53 93 H 15 85/60 L 98 02/04/21 02:39 78 96/63 L 94 02/04/21 02:30 86 23 90 02/04/21 02:22 81 28 H 98/69 L 92 02/04/21 02:07 82 27 H 85/66 L 94 02/04/21 02:00 85 24 95 02/04/21 01:45 90 20 74/51 L 94 02/04/21 01:30 90 26 H 96 02/04/21 01:23 90 29 H 114/58 L 95 02/04/21 01:01 119 H 02/04/21 00:30 81 27 H 94 02/04/21 00:00 37.1 C 92 H 17 72 L 02/03/21 23:45 84 18 110/76 89 L 02/03/21 23:30 84 33 H 93 02/03/21 23:15 85 21 111/72 93 02/03/21 23:00 85 28 H 92 02/03/21 22:45 86 35 H 116/69 93 02/03/21 22:30 91 H 22 94 02/03/21 22:15 88 32 H 119/72 93 02/03/21 22:13 92 H 24 113/70 94 02/03/21 22:00 90 92 02/03/21 21:17 89 86/47 L 94 02/03/21 21:00 95 H 19 94 02/03/21 20:45 93 H 88/46 L 93 02/03/21 20:15 91 H 24 92/60 L 94 Resident Activity Tracking Resident Involvement: Resident Care Provided Care Provided: Adult Hospital Medicine (1) Sepsis Sepsis acute organ dysfunction status: without acute organ dysfunction Sepsis type: sepsis due to unspecified organism Qualified Code(s): A41.9 - Sepsis, unspecified organism
[2021-02-04] MEDS: FAMOTIDINE 20 MG in SYRINGE 3 ML IV SCH (08:12)
[2021-02-04] MEDS: FLUDROCORTISONE ACETATE 0.1 MG TAB PO SCH (08:13)
[2021-02-04] MEDS: HEPARIN SOD 5,000 UNIT/0.5 ML VIAL SQ SCH ×2 (08:13→21:24)
[2021-02-04] MEDS: INSULIN ASPART 100 UNITS/ML 3 ML PEN SC SCH ×5 (08:14→23:31)
[2021-02-04 08:38] LABS: BUN Creatinine Ratio 17.3 (10-20); Calcium 8.3 mg/dl (8.5-10.1); Creatinine Clr Calc Pharmacy 83.9 ml/min; Est GFR (Non-African American) 35.3; Magnesium 2.9 mg/dl (1.8-2.4); Potassium 3.6 mmol/L (3.5-5.1)
[2021-02-04 08:43] LABS: Phosphorus 4.1 mg/dl (2.5-4.9)
--- NOTE | 2021-02-04 09:03 | Electrocardiogram Report ---
Test Reason : Blood Pressure : / mmHG Vent. Rate : 077 BPM Atrial Rate : 077 BPM P-R Int : 244 ms QRS Dur : 108 ms QT Int : 352 ms P-R-T Axes : 061 029 -72 degrees QTc Int : 398 ms Sinus rhythm with 1st degree A-V block Diffuse Minor Nonspecific T wave abnormality Abnormal ECG When compared with ECG of 28-JAN-2021 18:43, CA interval has increased Vent. rate has decreased BY 41 BPM Confirmed by Paul Galvez ([id number] on 02/04/2021 9:03:18 AM Referred By: REFERRED SELF Confirmed By:Paul Galvez
[2021-02-04] MEDS ORDERED: INSULIN GLARGINE SOLOSTAR 100 UNITS/ML 3 ML PEN SQ ONE ×2 (11:15→21:00)
--- NOTE | 2021-02-04 11:22 | Electrocardiogram Report ---
Test Reason : Blood Pressure : / mmHG Vent. Rate : 108 BPM Atrial Rate : 108 BPM P-R Int : 176 ms QRS Dur : 104 ms QT Int : 354 ms P-R-T Axes : 073 034 110 degrees QTc Int : 474 ms Sinus tachycardia Low voltage QRS Nonspecific ST and T wave abnormality Abnormal ECG When compared with ECG of 28-JAN-2021 18:43, Non-specific change in ST segment in Lateral leads Nonspecific T wave abnormality now evident in Lateral leads Confirmed by Miguel Paris ([id number] on 02/04/2021 11:21:53 AM Referred By: REFERRED SELF Confirmed By:Miguel Paris
--- NOTE | 2021-02-04 11:22 | Pharmacy Report ---
Pharmacy Glycemic Short Note 2 - Date of Service February 04, 2021 - Glycemic Short BSG Results (Last 24 hours): 02/03/21 02/03/21 02/03/21 11:32 13:57 14:01 Glucose 225 H POC Glucose 212 H POC Glucose (other) 234 H 02/03/21 02/03/21 02/03/21 14:59 16:04 17:04 Glucose POC Glucose POC Glucose (other) 172 H 142 H 134 H 02/03/21 02/03/21 02/03/21 18:16 18:59 19:48 Glucose 131 H POC Glucose POC Glucose (other) 113 H 109 H 02/03/21 02/03/21 02/03/21 21:15 22:01 23:00 Glucose POC Glucose POC Glucose (other) 134 H 159 H 172 H 02/04/21 02/04/21 02/04/21 01:06 01:59 04:24 Glucose 163 H POC Glucose 168 H 174 H POC Glucose (other) 02/04/21 02/04/21 02/04/21 08:09 08:12 10:29 Glucose 236 H POC Glucose POC Glucose (other) 229 H 264 H OUTPATIENT ANTIDIABETIC REGIMEN: * Lantus 50 units BID * A1c = 8.7% 01/29/21 ASSESSMENT: 02/04 * Discussed at ICU rounds - OK to attempt to transition off of insulin drip * Steroids tapering significantly and dextrose-containing IVF have been stopped * Reviewed prior admission data - AM fasting BSG controlled while only on 25 units of Lantus daily, although patient was not as severely ill nor on steroids at that time * Will increase Lantus as compared to yesterday (received 45 units total) due to higher insulin drip rates, but anticipate reduction in stressors will increase insulin sensitivity therefore will not be aggressive with dosing, especially given historical data * 02/03 * Type 2 diabetic transferred to ICU secondary to septic shock, worsening PRAFUL * He remains in the ICU this AM and is still requiring norepi for pressor support * 2 consecutive BSGs > 140, triggering auto pharmacy consult for glycemic control * BSGs elevated since starting pressor * Pt received half his usual Lantus dose this AM, will give supplemental doses - will also increase Novolog dose substantially and correct more frequently over next 24 hrs * Patient does have AG acidosis in the setting of PRAFUL, however also has elevated BOHB. Patient may need insulin drip PLAN FOR INPATIENT GLYCEMIC CONTROL: * Transition off insulin drip - scheduled to stop at 2130 tonight, or as soon as 1800 if rate <1 unit/hr and BSG < 180 mg/dL * Basal insulin * Lantus 70 units SC x1. Additional 10-20 units tonight, depending on insulin drip rate * Bolus insulin * NovoLog per scale ACHS and at 0000 + 0400 * Goal Range: Low 110 mg/dL - High 140 mg/dL * Correction Factor: 10 mg/dL/unit * Nutritional / Prandial insulin per carb ratio of 1 unit per 4 grams CHO consumed PLAN FOR DISCHARGE: * to be determined
--- NOTE | 2021-02-04 11:31 | Progress Notes ---
DATE: 02/04/2021 NEPHROLOGY PROGRESS NOTE SUBJECTIVE: Overnight, no new issues. He is getting better pretty fast. Norepinephrine drip is being tapered down. He made 4.5 liters of urine and still has a Addison catheter. He feels great. OBJECTIVE: VITAL SIGNS: Blood pressure 109/64, pulse rate 76, temperature 37, respiratory rate 6 per minute, 97% on room air. HEENT: Mucous membranes moist. NECK: Supple. No jugular venous distention. CHEST: Bilaterally clear to auscultation. CARDIOVASCULAR: S1, S2 regular. ABDOMEN: Soft, nontender, obese. EXTREMITIES: Show no edema. LABORATORY TESTS: From this morning was reviewed and shows rapidly improving creatinine and is down to 2.28. BUN is 40. No other major electrolyte issues. Hemoglobin is 10.9. ASSESSMENT AND PLAN: A 35-year-old male with acute renal failure secondary to acute tubular necrosis in the setting of sepsis, hypotension and contrast exposure. Acute renal failure: It is improving rapidly and I expect him to be essentially back to normal kidney function by tomorrow. He is having really great urine output and his blood pressure is also improving. No further workup needed. I still explained to him that he is out of the danger for the time being, but he is at significant renal risk in the future given his early aggressive diabetes. Continue to avoid non-steroidal anti-inflammatory drugs and nephrotoxic agents and contrast agent. We can continue the IV fluid for 1 more day and then stop.
--- NOTE | 2021-02-04 12:01 | Billing Data ---
Date of Service February 04, 2021 Coding Level of Care Code 24627 Subseq Hosp Care Lvl 3
[2021-02-04] MEDS: MIDODRINE HCL 2.5 MG TAB PO SCH ×2 (12:02→16:31)
[2021-02-04 14:24] LABS: BUN Creatinine Ratio 20.7 (10-20); Calcium 8.3 mg/dl (8.5-10.1); Creatinine Clr Calc Pharmacy 98.6 ml/min; Est GFR (African American) 49.8; Phosphorus 4.6 mg/dl (2.5-4.9); Potassium 3.8 mmol/L (3.5-5.1)
--- NOTE | 2021-02-04 15:37 | Hospitalist Progress Note ---
Date of Service February 04, 2021 Assessment & Plan (1) Sepsis: s/p tonsillectomy in Nov 2020. Sepsis likely related to ENT infection (parotitis), which is improved. No evidence of abscess. Cont current antibiotic regimen and will discuss appropriate de-escalation at this point with ID specialist/ENT physician. (2) Parotitis: plan as above. (3) Acute renal failure: ischemic ATN in setting of hypotension/sepsis plus renal vasoconstriction from IV contrast and NSAID use. Baseline creatinine 0.8, peak at 3.8 on 02/02 now improving to 2.3 this morning. Regan still in place and making good urine. (4) Diabetes mellitus, type II: Improved glucose on insulin. Appreciate pharmacy support with management. Patient is eating and doing well clinically. (5) Hypotension: Worsening hypotension on 02/02, requiring pressor support. Patient is currently off pressors but still requiring midodrine. Continue de-escalation of midodrine per nephrology. (6) Morbid obesity: Lifestyle changes recommended to decrease percent body fat. (7) Adrenal insufficiency: Random cortisol low at 27 on 02/03 with hydrocortisone started for relative adrenal insufficiency in setting of critical illness. Continue hydrocortisone. (8) DKA (diabetic ketoacidoses): Off insulin drip with improvement in ketones. Continue basal bolus insulin and currently tolerating p.o. Most recent A1c is 8.7 on January 29. Outpatient follow-up recommended for better control of diabetes with primary care. (9) Elevated troponin: Elevated troponin in setting of sepsis with acute hypotension and vasopressor support. Echocardiogram on 02/03 reveals a slight decrease in ejection fraction to 40 to 45% with a moderately dilated LV. This patient has no issues with chest pain or trouble breathing at this time. Troponin peaked at 7.44 on 02/03 and trended down to 1.42 on 02/04. EKG reveals no evidence of active ischemia in evolution through this time. This appears secondary to demand isch emia in setting of sepsis. (10) Tobacco use disorder: Encouraged to quit smoking-uses menthol cigarettes daily. (11) DVT prophylaxis: Heparin Full Code Dispo-ICU DO [facility] Hospitalist Admission and Anticipated Discharge Date Admission Date: January 28, 2021 Subjective 35 yo M admitted for sepsis likely related to a head and neck infection post- tonsillectomy Nov 2020, initially improved on antibiotics, then developed tenderness over left neck. CT neck revelaed retropharyngeal edema without abscess, inflammatory changes of the left neck with adenopathy, and no abscess or subcutaneous emphysema. Was seen by ID and abx recommended included vancomycin, ceftriaxone, and flagyl. He was on this for 2-3 days. He was transferred to the ICU on 02/02 pm with persistent hypotension even after 4L of fluid. Changed abx to clindamycin and aztreonam because of PRAFUL and allergies on 02/02 in the evening. He is now off pressors, making good urine with an improvement in renal function. He is tolerating solid food, glucose is under control. He denies any neck pain today, is afebrile No chest pain or SOB Has been ambulating to and from bathroom without much issue. Review of Systems Review of Systems: All systems reviewed & are unremarkable except as noted in Subjective Physical Exam Physical Exam: CONSTITUTIONAL: obese, vitals as above, generally well- appearing EYES: normal conjunctivae, no scleral icterus ENT: external ear and nose normal, oropharynx clear, normal buccal cavity without erythema or swelling. NECK: trachea midline, no lymphadenopathy, no cervical LAD appreciated, no TTP of left neck space, RESPIRATORY: clear to auscultation bilaterally, no crackles, rales or wheezes, normal respiratory effort CARDIOVASCULAR: regular rate and rhythm, S1 and 2 heard without murmurs, gall ops or rubs, no JVD, no peripheral edema GASTROINTESTINAL: soft, nontender, nondistended. : regan in place. MUSCULOSKELETAL: strength 5/5 throughout, head is normocephalic and atraumatic SKIN: warm and dry NEUROLOGIC: CN 2-12 grossly intact, no sensory deficit, normal cognition, normal speech PSYCHIATRIC: alert cooperative and oriented to person, place and time. Results & Data Results & Data ([facility]) Vital Signs (Past 12 Hours) Vital Signs Pulse Resp BP Pulse Ox 02/04/21 08:00 87 02/04/21 06:38 76 6 L 109/64 97 02/04/21 06:30 78 27 H 96 02/04/21 06:22 77 1 L 111/63 96 02/04/21 06:15 76 8 L 96 02/04/21 06:08 78 7 L 97/65 L 96 02/04/21 06:00 78 0 L 97 02/04/21 05:52 81 27 H 111/60 92 02/04/21 05:45 78 25 H 96 02/04/21 05:37 79 26 H 86/54 L 96 02/04/21 05:30 78 26 H 93 02/04/21 05:22 83 25 H 95/58 L 92 02/04/21 05:15 79 27 H 94 02/04/21 05:08 79 27 H 93/56 L 94 02/04/21 05:00 79 91 02/04/21 04:53 80 101/50 L 94 02/04/21 04:45 78 26 H 94 02/04/21 04:37 80 28 H 108/76 96 02/04/21 04:30 76 94 02/04/21 04:23 78 23 75/45 L 95 02/04/21 04:15 77 21 94 02/04/21 04:09 80 24 74/40 L 85 L 02/04/21 04:00 83 21 95 02/04/21 03:45 79 25 H 93 Laboratory Results Short CBC 02/04/21 Range/Units 01:59 WBC 9.54 (4.8-10.8) K/uL Hgb 10.9 L (14.0-18.0) g/dL Hct 31.7 L (42-52) % Plt Count 245 (130-400) K/uL BMP 02/03/21 02/04/21 02/04/21 19:48 01:59 08:09 Sodium 133 L 137 136 Potassium 3.6 4.1 3.6 Chloride 103 107 106 Carbon Dioxide 20 L 21 21 BUN 40 H 40 H 40 H Creatinine 2.91 H D 2.57 H D 2.28 H Glucose 131 H 163 H 236 H Calcium 8.5 8.0 L 8.3 L 02/04/21 13:47 Sodium 137 Potassium 3.8 Chloride 107 Carbon Dioxide 23 BUN 40 H Creatinine 1.94 H D Glucose 212 H Calcium 8.3 L Cardiac Enzymes 02/03/21 02/04/21 Range/Units 19:48 01:59 Troponin I 2.010 H* 1.420 H* (0-0.045) ng/ml Medications Administered Current Inpatient Medications Acetaminophen (Acetaminophen 325 Mg Tab) 650 mg PO Q4H PRN PRN Reason: Pain or Fever Stop: 02/27/21 23:52 Last Admin: 02/03/21 13:30 Dose: 650 mg Documented by: Aztreonam (Aztreonam Consult Active) 1 ea N/A UD PRN PRN Reason: Consult Stop: 03/04/21 22:16 Cyclobenzaprine HCl (Cyclobenzaprine Hcl 5 Mg Tab) 5 mg PO TID PRN PRN Reason: Muscle Spasm Stop: 03/02/21 08:44 Last Admin: 01/31/21 19:54 Dose: 5 mg Documented by: Dextrose (Dextrose 50% 50 Ml Syringe) 25 - 50 ml IV UD PRN; Protocol PRN Reason: Hypoglycemia Protocol Stop: 02/28/21 00:14 Diphenhydramine HCl (Diphenhydramine 50 Mg/Ml Vial) 50 mg IV Q6H PRN PRN Reason: Allergic Reaction Stop: 03/03/21 10:56 Fludrocortisone Acetate (Fludrocortisone Acetate 0.1 Mg Tab) 0.1 mg PO QAM DIANE Stop: 03/05/21 15:29 Last Admin: 02/04/21 08:13 Dose: 0.1 mg Documented by: Glucagon (Glucagon For Inj 1 Mg Vial) 1 mg SQ UD PRN; Protocol PRN Reason: Hypoglycemia Protocol Stop: 02/28/21 00:14 Glucose (Glucose 40% Gel 15 Gm Tube) 15 - 30 gm PO UD PRN; Protocol PRN Reason: Hypoglycemia Protocol Stop: 02/28/21 00:14 Glucose (Glucose 10 Tabs/Tube) 4 - 8 tabs PO UD PRN; Protocol PRN Reason: Hypoglycemia Protocol Stop: 02/28/21 00:14 Heparin Sodium (Porcine) (Heparin Sod 5,000 Unit/0.5 Ml Vial) 5,000 units SQ Q12 DIANE Stop: 03/05/21 20:59 Last Admin: 02/04/21 08:13 Dose: 5,000 units Documented by: Hydrocortisone (Hydrocortisone 10 Mg Tab) 25 mg PO BID DIANE Stop: 03/06/21 20:59 Norepinephrine Bitartrate (Levophed/D5w) 8 mg in 508 mls @ 15.126 mls/hr IV .Q24H DIANE; Protocol Stop: 03/04/21 21:14 Last Titration: 02/04/21 14:30 Dose: 0 mcg/kg/min, 0 mls/hr Documented by: Clindamycin Phosphate 600 mg/ (Dextrose) 54 mls @ 100 mls/hr IV Q8 [facility] Stop: 02/09/21 22:29 Last Admin: 02/04/21 13:31 Dose: 100 mls/hr Documented by: Aztreonam 2,000 mg/ Dextrose 110 mls @ 100 mls/hr IV Q8 [facility]; Protocol Stop: 02/09/21 22:29 Last Admin: 02/04/21 13:32 Dose: 100 mls/hr Documented by: Insulin Human Regular 250 (units/ Sodium Chloride) 250 mls @ 6.2 mls/hr IV .Q24H [facility]; Protocol Stop: 02/04/21 21:30 Last Titration: 02/04/21 13:30 Dose: 6.2 units/hr, 6.2 mls/hr Documented by: Insulin Aspart (Insulin Aspart 100 Units/Ml 3 Ml Pen) 0 units SC [facility] Stop: 02/04/21 19:01 Last Admin: 02/04/21 12:03 Dose: 7 units Documented by: Insulin Aspart (Insulin Aspart 100 Units/Ml 3 Ml Pen) 0 units SC [facility]; Protocol Stop: 03/06/21 20:59 Insulin Aspart (Insulin Aspart 100 Units/Ml 3 Ml Pen) 0 units SC TODAY@0000,0400 [facility]; Protocol Stop: 02/05/21 04:01 Insulin Glargine (Insulin Glargine Solostar 100 Units/Ml 3 Ml Pen) 0 units SQ [facility]; Protocol Stop: 02/04/21 21:01 Menthol (Cough Drop (Sugar Free) Aden 24 Aden/1 Box) 1 aden BUCCAL PRN PRN PRN Reason: Cough Stop: 03/03/21 18:18 Last Admin: 02/01/21 18:25 Dose: 1 aden Documented by: Midodrine (Midodrine Hcl 2.5 Mg Tab) 5 mg PO TID@0700,1200,1600 [facility] Stop: 03/06/21 11:59 Last Admin: 02/04/21 12:02 Dose: 5 mg Documented by: Miscellaneous (Carbohydrates For Hypoglycemia ) 15 - 30 gm PO UD PRN PRN Reason: Hypoglycemia Treatment Stop: 02/28/21 00:14 Miscellaneous (Insulin Drip - Stop Order) 1 ea N/A TODAY@2129 ONE Stop: 02/04/21 21:31 Miscellaneous Information (Pharmacy Glycemic Mgmt Consult) 1 ea N/A UD PRN PRN Reason: Consult Stop: 03/05/21 11:55 Nitroglycerin (Nitroglycerin Sl 0.4 Mg/Tab Tab) 0.4 mg SL UD PRN PRN Reason: Chest Pain Stop: 02/27/21 23:52 Ondansetron HCl (Ondansetron Inj 2 Mg/Ml 2 Ml Vial) 4 mg IV Q6H PRN PRN Reason: Nausea Stop: 02/27/21 23:52 Last Admin: 01/31/21 15:54 Dose: 4 mg Documented by: Polyethylene Glycol (Polyethylene (Miralax) 17 Gm Pack) 17 gm PO DAILY PRN PRN Reason: Constipation Stop: 02/27/21 23:52 (1) Sepsis Sepsis acute organ dysfunction status: without acute organ dysfunction Sepsis type: sepsis due to unspecified organism Qualified Code(s): A41.9 - Sepsis, unspecified organism
[2021-02-04 20:57] LABS: BUN Creatinine Ratio 21.4 (10-20); Calcium 8.4 mg/dl (8.5-10.1); Creatinine Clr Calc Pharmacy 101.7 ml/min; Est GFR (African American) 51.7; Est GFR (Non-African American) 44.6; Magnesium 2.8 mg/dl (1.8-2.4); Phosphorus 4.6 mg/dl (2.5-4.9); Potassium 3.5 mmol/L (3.5-5.1)
[2021-02-04] MEDS ORDERED: HYDROCORTISONE 10 MG TAB PO SCH (21:00)
[2021-02-04] MEDS: INSULIN REGULAR 250 UNITS in SODIUM CHLORIDE 0.9% 247.5 ML IV SCH (21:21)
[2021-02-05] MEDS: INSULIN ASPART 100 UNITS/ML 3 ML PEN SC SCH ×5 (03:36→20:33)
[2021-02-05 04:43] LABS: Hematocrit (blood only) 30.8 % (42-52); Hemoglobin 10.3 g/dL (14.0-18.0); Mean Corpuscular Hemoglobin 27.2 pg (25-34); Mean Corpuscular Hgb Conc 33.4 g/dL (32-36); Mean Corpuscular Volume 81.3 fL (80-100); Platelet Count 281 K/uL (130-400); RDW Coefficient of Variation 15.2 % (11.5-14.5); RDW Standard Deviation 45.3 fL (36.4-46.3); Red Blood Count 3.79 M/uL (4.7-6.1); White Blood Count 8.05 K/uL (4.8-10.8)
[2021-02-05 04:49] LABS: Base Excess VBG -1.8 mEq/L; HCO3 VBG 24 mmol/L; PCO2 VBG 42 mmHg (38-50); PO2 VBG 30 mmHg; pH VBG 7.36 (7.36-7.41)
[2021-02-05 05:00] LABS: BUN Creatinine Ratio 23.8 (10-20); Calcium 7.6 mg/dl (8.5-10.1); Creatinine Clr Calc Pharmacy 116.2 ml/min; Est GFR (African American) 59.3; Est GFR (Non-African American) 51.1
[2021-02-05 05:01] LABS: Beta-Hydroxybutyrate 2.25 mg/dl (0.2-2.81); Phosphorus 5.4 mg/dl (2.5-4.9)
[2021-02-05 05:06] LABS: Basophils # (auto) 0.04 K/uL (0-0.2); Basophils % (auto) 0.5 %; Eosinophils # (auto) 0.18 K/uL (0-0.5); Eosinophils % (auto) 2.2 %; Immature Granulocytes # (auto) 0.08 K/uL (0.00-0.02); Lymphocytes # (auto) 2.02 K/uL (1.2-3.4); Lymphocytes % (auto) 25.1 %; Monocytes # (auto) 0.72 K/uL (0.11-0.59); Monocytes % (auto) 8.9 %; Neutrophils # (auto) 5.01 K/uL (1.4-6.5); Neutrophils % (auto) 62.3 %
[2021-02-05] MEDS: CLINDAMYCIN 600 MG in DEXTROSE 5% 50 ML IV SCH ×3 (05:19→21:39)
[2021-02-05] MEDS: AZTREONAM 2,000 MG in DEXTROSE 5% 100 ML IV SCH ×3 (05:19→21:39)
[2021-02-05 05:31] LABS: Oxygen Saturation VBG < 60.0 %
[2021-02-05] MEDS: MIDODRINE HCL 2.5 MG TAB PO SCH ×3 (07:11→16:38)
--- NOTE | 2021-02-05 08:07 | Critical Care Progress Note ---
Date of Service February 05, 2021 Assessment & Plan (1) Acute renal failure: Reason Critically Ill: 35-year-old male with acute renal failure who was also found to be in DKA on presentation to ICU. Patient has done well and is off pressor support. OK to downgrade from ICU today. NEURO - CAM ICU: NEGATIVE - A/O x3 at this time - Continue delirium precautions CARDIAC/VASCULAR - Hypotension likely in the setting of acute renal failure. Possible sepsis but unknown source of infection. - Midodrine 5mg po TID. Can wean as BP improves. - Has been off levophed since yesterday afternoon. - Monitor on tele. Goal to maintain maps > 65 Elevated Troponin - Troponin peaked at 7.44 on 02/03 or 450; now down to 1.42 - ECHO 02/03: LVEF 40-45%. Study technically limited but grossly normal valvular structure and function. LV moderately dilated. Left atrium normal size. RV and right atrium not well visualized. - Previous ECHO from 12/06/17 with LVEF of 50-55%. - Recommend repeat ECHO in 4 weeks; if EF still decreased, would recommend cardiology consultation. RESPIRATORY - - History of asthma. Saturating well on room air. - Chest CT w/ contrast 01/28: No significant abnormality identified within the chest. - Chest CT w/o contrast 01/31: No acute intrathoracic findings. No evidence of focal pulmonary consolidation. No evidence of pathologic adenopathy. - CXR 02/02: No pneumothorax. Pulmonary vascular congestion suggested. No pneumothorax, pleural effusion, airspace consolidation or overt pulmonary edema. - Patient reports cough has significantly improved and cough now is his chronic cough associated with cigarette use. - Recommended smoking cessation and education provided to patient. He "is trying to quit." He has NOT required nicotine replacement during this hospitalization. GI/NUTRITION - - No concerns at this point. - Will start patient on Tums BID x3 days due to hypocalcemia and hyperphosphatemia (Ca 7.6, Phos 5.4). RENAL/LYTES - Acute renal failure: - Multifactorial ATN secondary to NSAID use, antibiotic use (vancomycin), and IV contrast (4 separate CT w/ IV contrast since admission). - Cr is now downtrending (peaked at 3.84 on 02/02). It has significantly improved and is 1.68 today (was 0.76 on admission). - Nephrology consulted. Appreciate their assistance and recommendations. - Continue to hold all nephrotoxic agents. - BMP qAM Relative Adrenal Insufficiency - Random cortisol low at 27 on 02/03 -- initiated replacement for relative adrenal insufficiency - Will start taper of hydrocortisone. Recommend hydrocortisone 12.5mg po BID x3 days then discontinue. Can also discontinue Florinef in 3 days at conclusion of hydrocortisone taper. - - Remove regan catheter today. Continue to monitor Is/Os. ENDO - DKA - Hx of uncontrolled DM-II; most recent A1c 8.7% (01/29) - Beta-hydroxy 23.02 on 02/03 >> 3.52 >> 2.25 today - Plan for lantus and ISS per glycemic protocol - Continue to monitor BSGs per unit protocol HEME - Stable H&H ID - - Admitted with concerns for possible sepsis. Possible LEFT sided neck abscess/parotitis. ENT consulted; appreciate their assistance and recommendations. Per ENT, no drainable fluid collection on imaging and clinically ENT sxs resolved; recommend continuing IV abx. - Unsure of current source of infection. - Previously on multiple different antibiotics including vancomycin, ceftriaxone, and Flagyl. ID previously consulted due to the concerns of sepsis with initial ID consult 02/02. Abx changed to Clindamycin and aztreonam on 02/02 due to PRAFUL and hx of allergies. Will continue Clindamycin and aztreonam at this time. Defer abx management per ID. - Will hold on any nephrotoxic Rx at this time 2/2 renal injury. - Monitor CBC qAM LINES/IV ACCESS - PIVs x2 -- will remove RIGHT IJ CVL, RIGHT Radial Art Line, and Regan DVT PROPHYLAXIS - Lovenox (2) Sepsis: (3) Hypotension: (4) Uncontrolled diabetes mellitus: (5) Morbid obesity: Admission and Anticipated Discharge Date Admission Date: January 28, 2021 Supervising Physician Co-Signing Physician Notes Patient seen and examined. Discussed on multidisciplinary rounds. Discussed with family practice resident and independently reviewed all data. Agree with her assessment and plan as noted. Continue to wean stress dose steroids and midodrine as tolerated. Kidney function improving. Discontinue Regan catheter. Remove central line. Patient's been off pressors for most 18 hours at this point time. Okay to transfer to the floor under the care of the hospitalist. Will sign off from a critical care standpoint. Feel free to contact us if we can be of additional assistance. Subjective Patient seen and examined at bedside this morning. He had no acute events overnight and reports sleeping well. States that he "feels great" and is "ready to go home." Asymptomatic and specifically denies CP, palpitations, SOB, SAM, lightheadedness, dizziness, sore throat, neck pain, abd pain, n/v. Eating well. Had a BM last night (02/04). Has been off vasopressors and insulin drip since yesterday afternoon. Review of Systems Constitutional: no fever, no chills and no weakness Eyes: no problem reported Respiratory: no cough and no dyspnea Cardiovascular: no chest pain and no palpitations Gastrointestinal: no abdominal pain, no nausea, no vomiting, no constipation and no diarrhea/loose stools Musculoskeletal: no swelling Neurologic: no headache(s) Physical Exam Physical Exam: GENERAL: Morbidly obese male,appears stated age, laying supine in bed in no acute distress. Vital signs reviewed as above. EYES: PERRLA. EOMI. Anicteric sclerae. HENT: Moist mucous membranes. No pharyngeal erythema or exudates. No neck tenderness to palpation, especially in left neck. Full active ROM of neck. RESPIRATORY: Clear to auscultation bilaterally. No wheezing, rales, or rhonchi. CARDIOVASCULAR: Distant heart sounds but regular rate and rhythm. No murmurs. ABDOMEN: Obese abdomen that is soft and non-tender and non-distended. No palpable masses. Normal bowel sounds. GENITOURINARY: Regan catheter in place. EXTREMITIES: No edema. Non-tender. SKIN: Warm, dry. No rashes. NEUROLOGIC: A/O x3. No focal neurological deficits. CN II-XII intact. PSYCHIATRIC: Cooperative. Appropriate mood and affect. Results & Data Results & Data ([facility]) Vital Signs (Past 12 Hours) Vital Signs Temp Pulse Resp BP Pulse Ox 02/05/21 07:19 77 101/74 95 02/05/21 07:00 77 94 02/05/21 06:50 81 89/53 L 92 02/05/21 06:19 70 23 96/61 L 96 02/05/21 05:49 72 24 117/71 94 02/05/21 05:20 81 23 95/68 L 96 02/05/21 04:49 71 21 97/58 L 96 02/05/21 04:19 66 18 101/51 L 94 02/05/21 03:49 71 16 94/58 L 94 02/05/21 03:37 36.6 C 02/05/21 03:19 74 17 102/57 L 97 02/05/21 02:49 69 23 98/57 L 95 02/05/21 02:19 70 19 105/61 96 02/05/21 01:49 74 12 98/49 L 95 02/05/21 01:19 81 18 122/72 94 02/05/21 00:49 69 23 91/47 L 92 02/05/21 00:19 71 20 92/53 L 91 02/04/21 23:49 72 22 82/47 L 94 02/04/21 23:44 36.9 C 73 02/04/21 23:21 78 20 97/54 L 98 02/04/21 22:54 74 23 115/60 95 02/04/21 22:23 76 22 93/65 L 95 02/04/21 22:08 77 25 H 108/55 L 94 02/04/21 22:00 79 31 H 96/66 L 02/04/21 21:54 76 23 83/53 L 95 02/04/21 21:00 36.6 C 02/04/21 20:53 81 19 112/72 98 02/04/21 20:34 78 18 102/68 96 02/04/21 19:53 78 16 95/67 L 98 Resident Activity Tracking Resident Involvement: Resident Care Provided Care Provided: Adult Hospital Medicine (1) Sepsis Sepsis acute organ dysfunction status: without acute organ dysfunction Sepsis type: sepsis due to unspecified organism Qualified Code(s): A41.9 - Sepsis, unspecified organism
--- NOTE | 2021-02-05 08:13 | Electrocardiogram Report ---
Test Reason : Blood Pressure : / mmHG Vent. Rate : 074 BPM Atrial Rate : 074 BPM P-R Int : 214 ms QRS Dur : 110 ms QT Int : 446 ms P-R-T Axes : 065 038 010 degrees QTc Int : 495 ms Sinus rhythm with 1st degree A-V block Diffuse Minor Nonspecific T wave abnormality Low voltage QRS Abnormal ECG When compared with ECG of 05-FEB-2021 05:27, No significant change Confirmed by Paul Galvez ([id number]) on 02/05/2021 8:13:23 AM Referred By: REFERRED SELF Confirmed By:Paul Galvez
[2021-02-05] MEDS: CALCIUM CARBONATE 500 MG CHEWABLE TAB PO SCH ×2 (08:20→20:32)
[2021-02-05] MEDS: HEPARIN SOD 5,000 UNIT/0.5 ML VIAL SQ SCH ×2 (08:23→20:32)
[2021-02-05] MEDS: FLUDROCORTISONE ACETATE 0.1 MG TAB PO SCH (08:24)
[2021-02-05] MEDS: HYDROCORTISONE 10 MG TAB PO SCH ×2 (08:46→20:30)
[2021-02-05] MEDS ORDERED: HYDROCORTISONE 10 MG TAB PO SCH (09:00)
[2021-02-05] MEDS ORDERED: INSULIN GLARGINE SOLOSTAR 100 UNITS/ML 3 ML PEN SC ONE (09:00)
--- NOTE | 2021-02-05 09:07 | Billing Data ---
Date of Service February 05, 2021 Coding Level of Care Code 21002 Subseq Hosp Care Lvl 3
--- NOTE | 2021-02-05 10:42 | Pharmacy Report ---
Pharmacy Glycemic Short Note 2 - Date of Service February 05, 2021 - Glycemic Short BSG Results (Last 24 hours): 02/04/21 02/04/21 02/04/21 08:12 10:29 11:54 Glucose POC Glucose POC Glucose (other) 229 H 264 H 228 H 02/04/21 02/04/21 02/04/21 13:27 13:47 15:08 Glucose 212 H POC Glucose 202 H POC Glucose (other) 229 H 02/04/21 02/04/21 02/04/21 16:24 17:31 18:37 Glucose POC Glucose 149 H 144 H 96 POC Glucose (other) 02/04/21 02/04/21 02/04/21 19:29 20:31 20:35 Glucose 79 POC Glucose 90 89 POC Glucose (other) 02/04/21 02/05/21 02/05/21 23:18 03:32 04:31 Glucose 110 H POC Glucose 90 111 H POC Glucose (other) 02/05/21 07:13 Glucose POC Glucose 103 H POC Glucose (other) OUTPATIENT ANTIDIABETIC REGIMEN: * Lantus 50 units BID * A1c = 8.7% 01/29/21 ASSESSMENT: 02/05 * Insulin drip successfully transitioned off yesterday, with BSG's ranging 89- 111 mg/dL since that time * Hydrocortisone continuing to taper * Patient's outpatient needs seem to be in excess of inpatient needs, although unsure how much steroids will continue to contribute at this time * Will continue to reduce Lantus due to decrease in stressors (steroid taper, off pressors) and due to previous admission data 02/04 * Discussed at ICU rounds - OK to attempt to transition off of insulin drip * Steroids tapering significantly and dextrose-containing IVF have been stopped * Reviewed prior admission data - AM fasting BSG controlled while only on 25 units of Lantus daily, although patient was not as severely ill nor on steroids at that time * Will increase Lantus as compared to yesterday (received 45 units total) due to higher insulin drip rates, but anticipate reduction in stressors will increase insulin sensitivity therefore will not be aggressive with dosing, especially given historical data 02/03 * Type 2 diabetic transferred to ICU secondary to septic shock, worsening PRAFUL * He remains in the ICU this AM and is still requiring norepi for pressor support * 2 consecutive BSGs > 140, triggering auto pharmacy consult for glycemic control * BSGs elevated since starting pressor * Pt received half his usual Lantus dose this AM, will give supplemental doses - will also increase Novolog dose substantially and correct more frequently over next 24 hrs * Patient does have AG acidosis in the setting of PRAFUL, however also has elevated BOHB. Patient may need insulin drip PLAN FOR INPATIENT GLYCEMIC CONTROL: * Basal insulin * Lantus 10-15 units SC BID depending on BSG * Bolus insulin * NovoLog per scale ACHS * Goal Range: Low 110 mg/dL - High 140 mg/dL * Correction Factor: 10 mg/dL/unit * Nutritional / Prandial insulin per carb ratio of 1 unit per 4 grams CHO consumed PLAN FOR DISCHARGE: * to be determined
[2021-02-05] MEDS: INSULIN GLARGINE SOLOSTAR 100 UNITS/ML 3 ML PEN SC SCH (20:33)
--- NOTE | 2021-02-05 21:13 | Hospitalist Progress Note ---
Date of Service February 05, 2021 Assessment & Plan (1) Sepsis: s/p tonsillectomy in Nov 2020. Sepsis likely related to ENT infection (parotitis), which is improved. No evidence of abscess on imaging. Clinically improved with no residual neck tenderness or palpable lymphadenopathy. Continue with clindamycin and levaquin for 7-10 days with close PCP followup. Of note MRSA nares was negative this admission and there are no cultures to narrow antibiotic spectrum. (2) Parotitis: plan as above. (3) Acute renal failure: ischemic ATN in setting of hypotension/sepsis plus renal vasoconstriction from IV contrast and NSAID use. Baseline creatinine 0.8, peak at 3.8 on 02/02 now improving to 1.68 this morning. Cont to trend BMP. (4) Diabetes mellitus, type II: Improved glucose on insulin. Appreciate pharmacy support with management. Patient is eating and doing well clinically. (5) Hypotension: Worsening hypotension on 02/02, requiring pressor support. Patient is currently off pressors but still requiring midodrine. Cont with taper off hydrocortisone. As patient is adamant to go home today and will likely be again aggressive about going home tomorrow, would prefer to stop the midodrine and florinef support while being monitored closely in the hospital. BP is within normal range today. (6) Morbid obesity: Lifestyle changes recommended to decrease percent body fat. (7) Adrenal insufficiency: Random cortisol low at 27 on 02/03 with hydrocortisone started for relative adrenal insufficiency in setting of critical illness. Continue hydrocortisone taper now that he is clinically improved. (8) DKA (diabetic ketoacidoses): Off insulin drip with improvement in ketones. Continue basal bolus insulin and currently tolerating p.o. Most recent A1c is 8.7 on January 29. Outpatient follow-up recommended for better control of diabetes with primary care. (9) Elevated troponin: Elevated troponin in setting of sepsis with acute hypotension and vasopressor support. Echocardiogram on 02/03 reveals a slight decrease in ejection fraction to 40 to 45% with a moderately dilated LV. This patient has no issues with chest pain or trouble breathing at this time. Troponin peaked at 7.44 on 02/03 and trended down to 1.42 on 02/04. EKG reveals no evidence of active ischemia in evolution through this time. This appears secondary to demand ischemia in setting of sepsis. (10) Tobacco use disorder: Encouraged to quit smoking-uses menthol cigarettes daily. (11) DVT prophylaxis: Heparin Full Code Dispo-transitioned to PCU status. To home when medically stable. [facility] Admission and Anticipated Discharge Date Admission Date: January 28, 2021 Subjective 35 yo M admitted for sepsis likely related to a head and neck infection post- tonsillectomy Nov 2020, initially improved on antibiotics, then developed tenderness over left neck. CT neck revelaed retropharyngeal edema without abscess, inflammatory changes of the left neck with adenopathy, and no abscess or subcutaneous emphysema. Was seen by ID and abx recommended included vancomycin, ceftriaxone, and flagyl. He was on this for 2-3 days. He was transferred to the ICU on 02/02 pm with persistent hypotension even after 4L of fluid. Changed abx to clindamycin and aztreonam because of PRAFUL and allergies on 02/02 in the evening. Off pressors on 02/04, still on midodrine and hydrocortisone taper for adrenal insufficiency. Addison is out, making good urine, creatinine continues to improve. Denies neck pain, fevers, chills. Feeling better and wants to go home. Began yelling when it was recommended that he stay as he is just off pressor therapy and just out of the ICU this morning. He is very upset generally and would not calm down, so I had to leave the room and the interaction was unfortunately cut short. Review of Systems Review of Systems: All systems reviewed & are unremarkable except as noted in Subjective Physical Exam Physical Exam: CONSTITUTIONAL: obese, vitals as above, generally well- appearing EYES: normal conjunctivae, no scleral icterus ENT: external ear and nose normal, MMM NECK: trachea midline, no lymphadenopathy RESPIRATORY: clear to auscultation bilaterally, no crackles, rales or wheezes, normal respiratory effort CARDIOVASCULAR: regular rate and rhythm, S1 and 2 heard without murmurs, gallops or rubs, no JVD, no peripheral edema GASTROINTESTINAL: soft, nontender, nondistended, protuberant obese abdomen. MUSCULOSKELETAL: strength 5/5 throughout, head is normocephalic and atraumatic SKIN: warm and dry NEUROLOGIC: CN 2-12 grossly intact, no sensory deficit, normal cognition, normal speech PSYCHIATRIC: alert cooperative and oriented to person, place and time. Results & Data Results & Data ([facility]) Vital Signs (Past 12 Hours) Vital Signs Temp Pulse Pulse Resp BP BP BP 02/05/21 19:53 36.3 C L 71 20 119/79 02/05/21 19:24 36.3 C L 68 18 83/55 L 02/05/21 16:08 73 02/05/21 15:47 36.4 C L 73 18 91/55 L 02/05/21 14:20 73 16 108/65 02/05/21 14:01 78 26 H 02/05/21 13:50 76 24 127/52 L 02/05/21 13:20 79 17 110/73 02/05/21 13:00 73 3 L 02/05/21 12:50 77 25 H 110/69 02/05/21 12:20 79 20 101/79 02/05/21 12:00 78 26 H 02/05/21 11:50 79 21 92/48 L 02/05/21 11:19 76 18 107/69 02/05/21 11:14 80 21 78/60 L 02/05/21 11:00 79 15 02/05/21 10:50 77 12 71/61 L 02/05/21 10:20 81 25 H 111/68 02/05/21 10:00 78 19 02/05/21 09:41 80 17 100/54 L Pulse Ox 02/05/21 19:53 98 02/05/21 19:24 93 02/05/21 16:08 02/05/21 15:47 98 02/05/21 14:20 97 02/05/21 14:01 02/05/21 13:50 98 02/05/21 13:20 97 02/05/21 13:00 91 02/05/21 12:50 96 02/05/21 12:20 98 02/05/21 12:00 98 02/05/21 11:50 98 02/05/21 11:19 98 02/05/21 11:14 98 02/05/21 11:00 98 02/05/21 10:50 97 02/05/21 10:20 98 02/05/21 10:00 98 02/05/21 09:41 96 Laboratory Results Short CBC 02/05/21 Range/Units 04:31 WBC 8.05 (4.8-10.8) K/uL Hgb 10.3 L (14.0-18.0) g/dL Hct 30.8 L (42-52) % Plt Count 281 (130-400) K/uL [facility] 02/05/21 04:31 Sodium 143 Potassium 4.0 Chloride 113 H Carbon Dioxide 27 BUN 40 H Creatinine 1.68 H Glucose 110 H Calcium 7.6 L Medications Administered Current Inpatient Medications Acetaminophen (Acetaminophen 325 Mg Tab) 650 mg PO Q4H PRN PRN Reason: Pain or Fever Stop: 02/27/21 23:52 Last Admin: 02/03/21 13:30 Dose: 650 mg Documented by: Aztreonam (Aztreonam Consult Active) 1 ea N/A UD PRN PRN Reason: Consult Stop: 03/04/21 22:16 Calcium Carbonate (Calcium Carbonate 500 Mg Chewable Tab) 1,500 mg PO BID [facility] Stop: 02/08/21 08:59 Last Admin: 02/05/21 20:32 Dose: 1,500 mg Documented by: Cyclobenzaprine HCl (Cyclobenzaprine Hcl 5 Mg Tab) 5 mg PO TID PRN PRN Reason: Muscle Spasm Stop: 03/02/21 08:44 Last Admin: 01/31/21 19:54 Dose: 5 mg Documented by: Dextrose (Dextrose 50% 50 Ml Syringe) 25 - 50 ml IV UD PRN; Protocol PRN Reason: Hypoglycemia Protocol Stop: 02/28/21 00:14 Diphenhydramine HCl (Diphenhydramine 50 Mg/Ml Vial) 50 mg IV Q6H PRN PRN Reason: Allergic Reaction Stop: 03/03/21 10:56 Fludrocortisone Acetate (Fludrocortisone Acetate 0.1 Mg Tab) 0.1 mg PO QAM DIANE Stop: 03/05/21 15:29 Last Admin: 02/05/21 08:24 Dose: 0.1 mg Documented by: Glucagon (Glucagon For Inj 1 Mg Vial) 1 mg SQ UD PRN; Protocol PRN Reason: Hypoglycemia Protocol Stop: 02/28/21 00:14 Glucose (Glucose 40% Gel 15 Gm Tube) 15 - 30 gm PO UD PRN; Protocol PRN Reason: Hypoglycemia Protocol Stop: 02/28/21 00:14 Glucose (Glucose 10 Tabs/Tube) 4 - 8 tabs PO UD PRN; Protocol PRN Reason: Hypoglycemia Protocol Stop: 02/28/21 00:14 Heparin Sodium (Porcine) (Heparin Sod 5,000 Unit/0.5 Ml Vial) 5,000 units SQ Q12 [facility] Stop: 03/05/21 20:59 Last Admin: 02/05/21 20:32 Dose: 5,000 units Documented by: Hydrocortisone (Hydrocortisone 10 Mg Tab) 15 mg PO BID [facility] Stop: 02/07/21 21:01 Last Admin: 02/05/21 20:30 Dose: 15 mg Documented by: Clindamycin Phosphate 600 mg/ (Dextrose) 54 mls @ 100 mls/hr IV Q8 [facility] Stop: 02/09/21 22:29 Last Infusion: 02/05/21 15:22 Dose: Infused Documented by: Aztreonam 2,000 mg/ Dextrose 110 mls @ 100 mls/hr IV Q8 [facility]; Protocol Stop: 02/09/21 22:29 Last Infusion: 02/05/21 15:22 Dose: Infused Documented by: Insulin Aspart (Insulin Aspart 100 Units/Ml 3 Ml Pen) 0 units SC ACHS [facility]; Protocol Stop: 03/06/21 20:59 Last Admin: 02/05/21 20:33 Dose: Not Given Documented by: Insulin Glargine (Insulin Glargine Solostar 100 Units/Ml 3 Ml Pen) 0 units SC BID [facility]; Protocol Stop: 03/07/21 20:59 Last Admin: 02/05/21 20:33 Dose: 10 units Documented by: Menthol (Cough Drop (Sugar Free) Aden 24 Aden/1 Box) 1 aden BUCCAL PRN PRN PRN Reason: Cough Stop: 03/03/21 18:18 Last Admin: 02/01/21 18:25 Dose: 1 aden Documented by: Midodrine (Midodrine Hcl 2.5 Mg Tab) 5 mg PO TID@0700,1200,1600 [facility] Stop: 03/06/21 11:59 Last Admin: 02/05/21 16:38 Dose: 5 mg Documented by: Miscellaneous (Carbohydrates For Hypoglycemia ) 15 - 30 gm PO UD PRN PRN Reason: Hypoglycemia Treatment Stop: 02/28/21 00:14 Miscellaneous Information (Pharmacy Glycemic Mgmt Consult) 1 ea N/A UD PRN PRN Reason: Consult Stop: 03/05/21 11:55 Nitroglycerin (Nitroglycerin Sl 0.4 Mg/Tab Tab) 0.4 mg SL UD PRN PRN Reason: Chest Pain Stop: 02/27/21 23:52 Ondansetron HCl (Ondansetron Inj 2 Mg/Ml 2 Ml Vial) 4 mg IV Q6H PRN PRN Reason: Nausea Stop: 02/27/21 23:52 Last Admin: 01/31/21 15:54 Dose: 4 mg Documented by: Polyethylene Glycol (Polyethylene (Miralax) 17 Gm Pack) 17 gm PO DAILY PRN PRN Reason: Constipation Stop: 02/27/21 23:52 (1) Sepsis Sepsis acute organ dysfunction status: without acute organ dysfunction Sepsis type: sepsis due to unspecified organism Qualified Code(s): A41.9 - Sepsis, unspecified organism
[2021-02-06] MEDS: CLINDAMYCIN HCL 150 MG CAP PO SCH ×2 (06:18→13:40)
[2021-02-06] MEDS: HEPARIN SOD 5,000 UNIT/0.5 ML VIAL SQ SCH ×2 (06:19→15:15)
[2021-02-06 07:06] LABS: Hematocrit (blood only) 36.9 % (42-52); Hemoglobin 12.4 g/dL (14.0-18.0); Mean Corpuscular Hemoglobin 27.9 pg (25-34); Mean Corpuscular Hgb Conc 33.6 g/dL (32-36); Mean Corpuscular Volume 83.1 fL (80-100); Mean Platelet Volume 9.9 fL (7.4-10.4); Platelet Count 389 K/uL (130-400); RDW Coefficient of Variation 15.6 % (11.5-14.5); RDW Standard Deviation 47.6 fL (36.4-46.3); Red Blood Count 4.44 M/uL (4.7-6.1); White Blood Count 6.59 K/uL (4.8-10.8)
[2021-02-06 07:34] LABS: BUN Creatinine Ratio 26.5 (10-20); Calcium 8.9 mg/dl (8.5-10.1); Creatinine Clr Calc Pharmacy 152.2 ml/min; Est GFR (African American) 83.1; Est GFR (Non-African American) 71.7; Potassium 4.1 mmol/L (3.5-5.1)
[2021-02-06 07:53] LABS: Basophils # (auto) 0.05 K/uL (0-0.2); Basophils % (auto) 0.8 %; Eosinophils # (auto) 0.27 K/uL (0-0.5); Eosinophils % (auto) 4.1 %; Immature Granulocytes # (auto) 0.11 K/uL (0.00-0.02); Immature Granulocytes % (auto) 1.7 %; Lymphocytes # (auto) 2.56 K/uL (1.2-3.4); Lymphocytes % (auto) 38.8 %; Monocytes % (auto) 9.1 %; Neutrophils % (auto) 45.5 %
[2021-02-06] MEDS: INSULIN GLARGINE SOLOSTAR 100 UNITS/ML 3 ML PEN SC SCH (08:15)
[2021-02-06] MEDS: CALCIUM CARBONATE 500 MG CHEWABLE TAB PO SCH (08:16)
[2021-02-06] MEDS: HYDROCORTISONE 10 MG TAB PO SCH (08:16)
[2021-02-06] MEDS: INSULIN ASPART 100 UNITS/ML 3 ML PEN SC SCH ×2 (08:17→11:42)
[2021-02-06] MEDS ORDERED: INSULIN GLARGINE SOLOSTAR 100 UNITS/ML 3 ML PEN SC ONE (09:00)
--- NOTE | 2021-02-06 10:04 | Nephrology Progress Note ---
Date of Service February 06, 2021 Assessment & Plan (1) Acute renal failure: recoverign from Stage 3 nonoliguric PRAFUL from ischemic ATN, in the setting of hypotension/sepsis, plus intense renal vasoconstriction from IV contrast and nsaids. baseline creatinine 0.8 and abrupt uptick in 36 hrs to peak at 3.8, drifting over days down to 1.3 today. potassium is ok. mild hyperchloremia. He did not need dialysis -daily bmp -no nsaids, no further IV contrast; if vanco were to be needed again would dose only by level d/c recs (d/c summary updated) -no nsaids now or after d/c beyond ASA 81 mg if recommended by cardiology >he needs CKD clinic f/u at [facility] w/in a month of hospital d/c >> any provider will sign off; pls call if ? (2) Hypotension: pressor dependent for a time w/ PRAFUL; then needed midodrine (off as of 02/05). SBP ok for now. he did earlier in admission have demand ischemia/elevated troponin; EF on 02/03 TTE dropped to 40-45% from previous December 2017 50-55%. bp appropriate currently -monitor closely as steroids tapered off Admission and Anticipated Discharge Date Admission Date: January 28, 2021 Physical Exam Constitutional: well developed, well nourished, + morbidly obese and cooperative; no acute distress Eyes: EOM intact bilaterally ENMT: Ears: no external ear abnormality Nose: no external nose abnormality Mouth: oral mucous membranes not dry Neck: + thick neck; no nuchal rigidity Respiratory: normal respiratory effort, + cough and able to speak in complete sentences (but slight dyspnea w/ conversation) Auscultation: + diminished lung sounds; no crackles, no rhonchi and no wheezes Cardiovascular: Rate/Rhythm: + tachycardic Extremities: no edema Gastrointestinal (Abdomen): Inspection/Auscultation: normal bowel sounds; abdomen not distended Percussion/Palpation: abdomen soft; abdomen nontender Musculoskeletal: Extremities: strength 5/5 throughout Skin: no rashes, warm and dry Psychiatric: A+Ox3, euthymic affect Speech: normal rate/rhythm/volume of speech Insight: good insight Judgement: good judgement Results & Data ([facility]) Vital Signs (Past 12 Hours) Vital Signs Temp Pulse Pulse Resp BP Pulse Ox 02/06/21 08:05 36.5 C 70 20 115/71 98 02/06/21 03:21 36.2 C L 70 17 109/72 99 02/06/21 02:02 72 02/05/21 23:22 36.3 C L 66 16 115/76 95 Laboratory Results 02/06/21 06:34 02/06/21 06:34
[2021-02-06] MEDS ORDERED: levoFLOXacin 750 MG TAB PO SCH (11:00)
--- NOTE | 2021-02-06 11:38 | Pharmacy Report ---
Pharmacy Glycemic Short Note 2 - Date of Service February 06, 2021 - Glycemic Short BSG Results (Last 24 hours): 02/05/21 02/05/21 02/06/21 16:08 20:07 06:34 Glucose 90 POC Glucose 137 H 95 02/06/21 02/06/21 07:27 11:22 Glucose POC Glucose 83 141 H OUTPATIENT ANTIDIABETIC REGIMEN: * Lantus 50 units BID * A1c = 8.7% 01/29/21 ASSESSMENT: 02/06 * AM fasting BSG below goal - will decrease Lantus * One post-prandial BSG also below goal yesterday - will slightly loosen Novolog parameters 02/05 * Insulin drip successfully transitioned off yesterday, with BSG's ranging 89- 111 mg/dL since that time * Hydrocortisone continuing to taper * Patient's outpatient needs seem to be in excess of inpatient needs, although unsure how much steroids will continue to contribute at this time * Will continue to reduce Lantus due to decrease in stressors (steroid taper, off pressors) and due to previous admission data 02/04 * Discussed at ICU rounds - OK to attempt to transition off of insulin drip * Steroids tapering significantly and dextrose-containing IVF have been stopped * Reviewed prior admission data - AM fasting BSG controlled while only on 25 units of Lantus daily, although patient was not as severely ill nor on steroids at that time * Will increase Lantus as compared to yesterday (received 45 units total) due to higher insulin drip rates, but anticipate reduction in stressors will increase insulin sensitivity therefore will not be aggressive with dosing, especially given historical data 02/03 * Type 2 diabetic transferred to ICU secondary to septic shock, worsening PRAFUL * He remains in the ICU this AM and is still requiring norepi for pressor support * 2 consecutive BSGs > 140, triggering auto pharmacy consult for glycemic control * BSGs elevated since starting pressor * Pt received half his usual Lantus dose this AM, will give supplemental doses - will also increase Novolog dose substantially and correct more frequently over next 24 hrs * Patient does have AG acidosis in the setting of PRAFUL, however also has elevated BOHB. Patient may need insulin drip PLAN FOR INPATIENT GLYCEMIC CONTROL: * Basal insulin - decrease * Lantus 8-10 units SC BID depending on BSG * Bolus insulin - loosen * NovoLog per scale ACHS * Goal Range: Low 110 mg/dL - High 140 mg/dL * Correction Factor: 15 mg/dL/unit * Nutritional / Prandial insulin per carb ratio of 1 unit per 5 grams CHO consumed PLAN FOR DISCHARGE: * to be determined
--- NOTE | 2021-02-06 14:59 | Discharge Summary ---
Date of Service February 06, 2021 Admission HPI Per Admitting Provider HISTORY OF PRESENT ILLNESS: A 35-year-old male with past medical history significant for type 2 diabetes, diabetic polyneuropathy, hypertension, currently not on any medications, morbid obesity, history of bipolar disorder, depression, hx of peritonsillar abscess, who presents with fever and body aches starting today, Denies any cough, but for the ER physician when asking, he told he has some mild cough. Currently he says since coming to the ER, he is having headaches. Whenever he is having fever and chills, he is getting some blurred visions. He says his sugars were running in the 300s at home. Denies any earache, no runny nose, no sore throat. Appetite is good. No loss of sense of smell or taste. No dysphagia, no shortness of breath. Denies any chest pain, no abdominal pain, no diarrhea or constipation, no blood in stools or black stools. No hematuria, no burning micturition, no swelling in the legs, no rash. He has an open wound in the umbilical region. He said he had appendicitis. Since then in the umbilical region, he gets on and off open wound there. He thinks it is from the rubbing of his belt buckle, but there is no active drainage seen or any significant erythema surrounding the wound. The patient is having temp spike and tachycardia in the ER, but his lactic acid is okay. Mild white count is seen, but no lymphopenia is seen. COVID test was negative. Influenza A and B PCR, RSV test also negative. Admission Exam Per Admitting Provider PHYSICAL EXAMINATION: GENERAL: The patient is morbidly obese, not in acute distress, alert and oriented. VITAL SIGNS: Temperature T-max 40.3, pulse 115, respiratory rate 26, blood pressure 138/84, oxygen 94% on room air. HEENT: Pupils equal, round, reactive to light. Oral mucosa moist. No obvious oral lesions seen. NECK: No neck masses. No JVD seen. CARDIOVASCULAR: S1, S2 heard, tachycardia. No murmur, no gallop. RESPIRATORY SYSTEM: Normal AP diameter. No accessory muscle use. No wheezing, no crackles. ABDOMEN: Small open ulcer seen in the periumbilical region. No obvious swelling, erythema or drainage seen. Abdomen is soft. Bowel sounds present, nontender. No distention. CENTRAL NERVOUS SYSTEM: Cranial nerves II-XII grossly intact. Nonfocal. EXTREMITIES: No edema, no erythema. Principal Diagnosis Sepsis with subsequent shock requiring vasopressor support secondary to parotitis Acute renal failure secondary to ischemic ATN in the setting of hypotension/sepsis plus renal vasoconstriction from IV contrast and NSAID use. Uncontrolled type 2 diabetes mellitus Morbid obesity Relative adrenal insufficiency DKA-resolved Elevated troponin secondary to demand ischemia in setting of acute critical illness Tobacco use disorder Discharge Exam CONSTITUTIONAL: obese, vitals as above, generally well-appearing EYES: normal conjunctivae, no scleral icterus ENT: external ear and nose normal, MMM NECK: trachea midline, no lymphadenopathy RESPIRATORY: clear to auscultation bilaterally, no crackles, rales or wheezes, normal respiratory effort CARDIOVASCULAR: regular rate and rhythm, S1 and 2 heard without murmurs, gallops or rubs, no JVD, no peripheral edema GASTROINTESTINAL: soft, nontender, nondistended, protuberant obese abdomen. MUSCULOSKELETAL: strength 5/5 throughout, head is normocephalic and atraumatic SKIN: warm and dry NEUROLOGIC: CN 2-12 grossly intact, no sensory deficit, normal cognition, normal speech PSYCHIATRIC: alert cooperative and oriented to person, place and time. Discharge Data Allergies Allergy/AdvReac Type Severity Reaction Status Date / Time aspirin Allergy Unknown Unknown Verified 01/28/21 20:14 Bactrim Allergy Unknown . Verified 02/01/18 00:10 Cephalosporins Allergy Unknown Unknown Verified 02/03/21 10:20 Penicillins Allergy Unknown Unknown Verified 01/28/21 20:14 Sulfa (Sulfonamide Allergy Unknown Unknown Verified 01/28/21 20:14 Antibiotics) sulfamethoxazole Allergy Unknown Unknown Verified 01/28/21 20:14 trimethoprim Allergy Unknown Unknown Verified 01/28/21 20:14 ioversol AdvReac Intermediate Severe PRAFUL Verified 02/06/21 11:33 ketorolac AdvReac Intermediate Severe PRAFUL Verified 02/06/21 11:33 lisinopril AdvReac Mild gi upset Verified 01/28/21 20:14 as per px Consultations 01/28/21 20:09 ED Decision to Admit Stat 02/01/21 08:36 Consult Infectious Diseases Routine 02/01/21 10:42 Consult Otolaryngology (Head and Neck) Routine 02/02/21 21:54 Consult Hand Decorator Routine 02/02/21 23:57 Consult Nephrology Routine Ordered Studies Laboratory Results WBC 6.59 K/uL (4.8-10.8) 02/06/21 06:34 RBC 4.44 M/uL (4.7-6.1) L 02/06/21 06:34 Hgb 12.4 g/dL (14.0-18.0) L 02/06/21 06:34 Hct 36.9 % (42-52) L 02/06/21 06:34 MCV 83.1 fL (80-100) 02/06/21 06:34 MCH 27.9 pg (25-34) 02/06/21 06:34 MCHC 33.6 g/dL (32-36) 02/06/21 06:34 RDW Std Deviation 47.6 fL (36.4-46.3) H 02/06/21 06:34 RDW Coeff of Black 15.6 % (11.5-14.5) H 02/06/21 06:34 Plt Count 389 K/uL (130-400) 02/06/21 06:34 MPV 9.9 fL (7.4-10.4) 02/06/21 06:34 Immature Gran % (Auto) 1.7 % 02/06/21 06:34 Neut % (Auto) 45.5 % 02/06/21 06:34 Lymph % (Auto) 38.8 % 02/06/21 06:34 Moody % (Auto) 9.1 % 02/06/21 06:34 Eos % (Auto) 4.1 % 02/06/21 06:34 Baso % (Auto) 0.8 % 02/06/21 06:34 Neut # (Auto) 3.00 K/uL (1.4-6.5) 02/06/21 06:34 Lymph # (Auto) 2.56 K/uL (1.2-3.4) 02/06/21 06:34 Moody # (Auto) 0.60 K/uL (0.11-0.59) H 02/06/21 06:34 Eos # (Auto) 0.27 K/uL (0-0.5) 02/06/21 06:34 Baso # (Auto) 0.05 K/uL (0-0.2) 02/06/21 06:34 Immature Gran # (Auto) 0.11 K/uL (0.00-0.02) H 02/06/21 06:34 RBC Morphology Unremarkable 02/04/21 01:59 Peripher Smr Path Cons Cancelled 01/30/21 06:39 ESR 77 mm/hr (0-15) H 02/03/21 04:51 PT 10.3 Seconds (9.0-12.0) 02/02/21 21:22 INR 1.0 (0.9-1.1) 02/02/21 21:22 APTT 23.9 Seconds (21.0-31.0) 01/28/21 18:45 PTT Ratio 0.9 01/28/21 18:45 VBG pH 7.36 (7.36-7.41) 02/05/21 04:31 VBG pCO2 42 mmHg (38-50) 02/05/21 04:31 VBG pO2 30 mmHg 02/05/21 04:31 VBG HCO3 24 mmol/L 02/05/21 04:31 VBG O2 Saturation < 60.0 % 02/05/21 04:31 VBG Base Excess -1.8 mEq/L 02/05/21 04:31 Barometric Pressure 725.3 mm/Hg 02/04/21 01:59 Sodium 142 mmol/L (136-145) 02/06/21 06:34 Potassium 4.1 mmol/L (3.5-5.1) 02/06/21 06:34 Chloride 111 mmol/L (98-107) H 02/06/21 06:34 Carbon Dioxide 26 mmol/L (21-32) 02/06/21 06:34 Anion Gap 5.0 (3-11) 02/06/21 06:34 BUN 34 mg/dl (7-18) H 02/06/21 06:34 Creatinine 1.27 mg/dl (0.6-1.4) D 02/06/21 06:34 Est Cr Clr Drug Dosing 152.2 ml/min 02/06/21 06:34 Est GFR ( Amer) 83.1 02/06/21 06:34 Est GFR (Non-Af Amer) 71.7 02/06/21 06:34 BUN/Creatinine Ratio 26.5 (10-20) H 02/06/21 06:34 Glucose 90 mg/dl (70-99) 02/06/21 06:34 POC Glucose 141 mg/dl (70-99) H 02/06/21 11:22 POC Glucose (other) 229 mg/dl (70-99) H 02/04/21 13:27 Estimat Average Glucose 203 mg/dl 01/29/21 04:58 Hemoglobin A1c 8.7 % (4.5-5.6) H 01/29/21 04:58 Lactate 1.8 mmol/L (0.4-2.0) 02/02/21 21:23 Calcium 8.9 mg/dl (8.5-10.1) D 02/06/21 06:34 Phosphorus 5.4 mg/dl (2.5-4.9) H 02/05/21 04:31 Magnesium 3.0 mg/dl (1.8-2.4) H 02/05/21 04:31 Total Bilirubin 0.4 mg/dl (0.2-1) 02/03/21 04:51 AST 29 U/L (15-37) 02/03/21 04:51 ALT 42 U/L (12-78) 02/03/21 04:51 Alkaline Phosphatase 83 U/L (45-117) 02/03/21 04:51 Total Creatine Kinase 97 U/L (39-308) 02/02/21 21:22 Troponin I 1.420 ng/ml (0-0.045) H* 02/04/21 01:59 C-Reactive Protein 33.60 mg/dl (0-0.29) H 02/03/21 04:51 Total Protein 6.4 gm/dl (6.4-8.2) 02/03/21 04:51 Albumin 1.9 gm/dl (3.4-5.0) L 02/03/21 04:51 Globulin 4.5 gm/dl (2.5-4.0) H 02/03/21 04:51 Albumin/Globulin Ratio 0.4 (0.9-2) L 02/03/21 04:51 Beta-Hydroxybutyric Acd 2.25 mg/dl (0.2-2.81) 02/05/21 04:31 Procalcitonin 6.42 ng/ml (0-0.5) H 02/03/21 04:51 Random Cortisol 27.95 mcg/dl 02/02/21 21:22 Specimen Hemolysis 02/02/21 21:22 Urine Color [place] 02/02/21 21:41 Urine Appearance Turbid (Clear) A 02/02/21 21:41 Urine pH 5.0 (4.5-7.5) 02/02/21 21:41 Ur Specific [place] > 1.045 (1.000-1.030) H 02/02/21 21:41 Urine Protein 4+ (Negative) H 02/02/21 21:41 Urine Glucose (UA) Trace (Negative) H 02/02/21 21:41 Urine Ketones Negative (Negative) 02/02/21 21:41 Urine Blood 3+ (Negative) H 02/02/21 21:41 Urine Nitrite Positive (Negative) A 02/02/21 21:41 Urine Bilirubin 2+ (Negative) H 02/02/21 21:41 Urine Urobilinogen Negative (Negative) 02/02/21 21:41 Ur Leukocyte Esterase 1+ (Negative) H 02/02/21 21:41 Urine WBC (Auto) >30 /hpf (0-5) H 02/02/21 21:41 Urine RBC (Auto) 10-30 /hpf (0-4) H 02/02/21 21:41 U Hyaline Cast (Auto) 5-10 /lpf (0-5) H 02/02/21 21:41 U Epithel Cells (Auto) >30 /lpf (0-5) H 02/02/21 21:41 Urine Bacteria (Auto) Negative (Negative) 02/02/21 21:41 Ur Renal Epithelial Cell Not Reportable 02/02/21 21:41 Amorphous Sediment Present (None Prsent) A 02/02/21 21:41 Granular Casts 1-5 /lpf (0) H 02/02/21 21:41 Urine Yeast Not Reportable 02/02/21 21:41 Ur Random Creatinine 192.0 mg/dl 02/02/21 21:41 U Random Total Protein 675.6 mg/dl (0-11.9) H 02/02/21 21:41 Protein/Creatinin Ratio 3.5 (0-0.2) H 02/02/21 21:41 Urine Sodium 22 mmol/L 02/02/21 21:41 Urine Potassium 37.4 mmol/L 02/02/21 21:41 Urine Chloride 19 mmol/L 02/02/21 21:41 Nasal Screen MRSA (PCR) Negative (Negative) 02/02/21 21:57 Anaplasma Smear See Comment 01/30/21 05:53 A. phagocytophilum DNA Not Detected (Not Detected) 01/30/21 06:39 Lyme Disease IgG Ab Negative (Negative) 01/30/21 06:39 Lyme Disease IgM Ab Negative (Negative) 01/30/21 06:39 COVID-19 Eval Order CovFluRsv at [facility] 01/31/21 22:00 SARS-CoV-2 (PCR) NEGATIVE (Negative) 01/31/21 22:00 EBV Capsid Ag IgG Ab >750.00 U/mL H 01/30/21 08:25 EBV Capsid Ag IgM Ab <36.00 U/mL 01/30/21 08:25 EBV Nuclear Antigen Ab 351.00 U/mL H 01/30/21 08:25 EBV Antibody Interp SEE NOTE 01/30/21 08:25 Hepatitis A IgM Ab NON-REACTIVE (NON-REACTIVE) 01/30/21 08:25 Hep Bs Antigen Neg (Neg) 01/30/21 08:25 Hep B Core IgM Ab NON-REACTIVE (NON-REACTIVE) 01/30/21 08:25 Hepatitis C Antibody Neg (Neg) 01/30/21 08:25 Influenza Type A (PCR) Negative (Neg) 01/31/21 22:00 Influenza Type B (PCR) Negative (Neg) 01/31/21 22:00 RSV (RT-PCR) Negative (Neg) 01/31/21 22:00 Impressions Abdomen/Pelvis CT 01/28/21 21:[address] WITH IV CONTRAST CT DOSE: 3875.59 mGy.cm HISTORY: Acute sepsis with wound of the anterior abdominal wall sepsis, abdomnal wall wound TECHNIQUE: Multiaxial CT images of the abdomen and pelvis were performed following the IV administration of 98 cc of Optiray, A dose lowering technique was utilized adhering to the principles of ALARA. COMPARISON STUDY: 08/14/2020 FINDINGS: The imaged inferior cardiac chambers are unremarkable. Respiratory motion artifact and patient body habitus limits the study. Clear lung bases. No pneumatosis or pneumoperitoneum. The spleen is mildly enlarged measuring 13.9 cm. Hepatomegaly suggested hepatic steatosis. No evidence of cirrhosis. Mildly contracted gallbladder. The pancreas and adrenal glands are unremarkable. The kidneys are within normal limits. No hydronephrosis. Unremarkable urinary bladder and prostate. Small fat filled left inguinal hernia. Aorta and IVC are unremarkable. There is no adenopathy. No bowel obstruction or bowel wall thickening. Mild fecal retention. Appendectomy. No ascites or mesenteric inflammation. Diastases recti. Mild skin thickening of the periumbilical tissues. No abscess. No acute fracture. Mild degenerative changes of the lumbar spine. IMPRESSION: 1. No bowel obstruction or bowel wall thickening. 2. Hepatosplenomegaly with suggested hepatic steatosis. 3. Appendectomy. ACT 112: Negative or not required by law. The above report was generated using voice recognition software. It may contain grammatical, syntax or spelling errors. Electronically signed by: Fermin Burns M.D. 01/29/2021 7:[address] 01/31/21 08:45 CT chest diagnostic wo con CLINICAL HISTORY: Sepsis. Cough. Fever of unknown origin. COMPARISON STUDY: 01/28/2021 CT DOSE: 1381.13 mGy.cm TECHNIQUE: CT of the thorax was performed from the thoracic inlet to the lung bases. Images are reviewed in the axial, sagittal, and coronal planes. IV contra st was not administered for this examination. A dose lowering technique was utilized adhering to the principles of ALARA. FINDINGS: Thyroid: Imaged portions of the thyroid gland are normal in appearance. Thoracic aorta: The thoracic aorta is normal in course and caliber, noting standard 3 vessel arch anatomy. Heart: The heart is normal in size and configuration, without pericardial effu melissa. Lungs and pleural spaces: There are no pleural effusions. There is no focal pulmonary consolidation. Mediastinum: There is no evidence of pathologic mediastinal lymphadenopathy. Yu: There is no evidence of pathologic hilar adenopathy given the limitations of noncontrast study. Axilla: There is no evidence of pathologic axillary lymphadenopathy. Upper abdomen: Partially visualized upper abdominal viscera is within normal limits. Skeletal structures: There are no lytic or blastic osseous lesions. IMPRESSION: 1. No acute intrathoracic findings 2. No evidence of focal pulmonary consolidation 2. No evidence of pathologic adenopathy. ACT 112: Negative or not required by law. Electronically signed by: Arash Joe M.D. 01/31/2021 9:09 AM Soft Tissue Neck CT 02/02/21 08:38 CT soft tissue neck w con CT DOSE: 1088.51 mGy.cm CLINICAL HISTORY: Peritonsillar phlegmon. NECK PAIN TECHNIQUE: Helical images were acquired during intravenous administration of 120 cc of Optiray. A dose lowering technique was utilized adhering to the principles of ALARA. COMPARISON STUDY: 02/01/2021 FINDINGS: The visualized portions of the lung apices are unremarkable. There is a 14 mm right lobe thyroid nodule. This remains unchanged from the prior study. No salivary gland masses are visualized. There is persistent left cervical lymphadenopathy, likely reactive. The epiglottis appears normal. There is no evidence of retropharyngeal abscess. There is tonsillar and adenoidal hypertrophy. There is left tonsillar edema. There is no CT evidence of a discrete peritonsillar abscess. There is no evidence of airway compromise. There is minimal inflammatory infiltration of the left parapharyngeal space. IMPRESSION: 1. Motion degraded study 2. Tonsillar and adenoidal hypertrophy with left tonsillar edema and parapharyngeal edema. No CT evidence of a focal peritonsillar abscess 3. No evidence of airway compromise 4. Persistent left cervical lymphadenopathy likely reactive. Follow-up to document resolution recommended. 5. Stable right thyroid nodule. ACT 112: Negative or not required by law. Electronically signed by: Arash Joe M.D. 02/02/2021 1:49 PM Chest X-Ray 02/04/21 01:31 XR chest 1V portable CLINICAL HISTORY: eval CVL 2/2 pt near pulling COMPARISON STUDY: Chest CT January 31, 2021. Chest radiograph February 02, 2021. FINDINGS: Internal jugular central line remains in place. The catheter has been slightly withdrawn. The tip object over the proximal SVC. There is no pneumothorax or pleural effusion. Cardiomegaly is unchanged. Pulmonary vascular congestion is unchanged. Apparent left basilar opacity is noted. This may be artifactual. IMPRESSION: 1. Right internal jugular central line slightly withdrawn. Catheter tip projects over the proximal SVC. 2. No pneumothorax. 3. No change in pulmonary vascular congestion. 4. Apparent left basilar opacity. Artifact is favored over airspace disease. ACT 112: Negative or not required by law. Electronically signed by: Stephan Ortiz M.D. 02/04/2021 6:29 AM Hospital Course (1) Sepsis: (2) Parotitis: (3) Acute renal failure: (4) Diabetes mellitus, type II: (5) Hypotension: (6) Morbid obesity: (7) Adrenal insufficiency: (8) DKA (diabetic ketoacidoses): (9) Elevated troponin: (10) Tobacco use disorder: 35 yo M admitted for sepsis likely related to a head and neck infection post-tonsillectomy Nov 2020, initially improved on antibiotics, then developed tenderness over left neck. CT neck revelaed retropharyngeal edema without abscess, inflammatory changes of the left neck with adenopathy, and no abscess or subcutaneous emphysema. Was seen by ID and abx recommended included vancomycin, ceftriaxone, and flagyl. He was on this for 2-3 days. He was transferred to the ICU on 02/02 pm with persistent hypotension even after 4L of fluid. Changed abx to clindamycin and aztreonam because of PRAFUL and allergies on 02/02 in the evening. He remained on these antibiotics until 02/05 when he was just off vasopressor support. He had also required midodrine and fludrocortisone for blood pressure support in addition to stress dose hydrocortisone for relative adrenal insufficiency while critically ill. Additionally, he developed an acute demand ischemia on his heart resulting in a decreased ejection fraction of 40 to 45% on resting echocardiogram. His troponin peaked at 7.44 on 02/03 and trended down to 1.42 on 02/04. EKG revealed no evidence of active ischemia throughout this time. A follow-up echocardiogram is recommended within the next few weeks. Regarding reduction of cardiac risk factors, he is encouraged to quit smoking, improve control of underlying diabetes and institute lifestyle changes to decrease percent body fat and increased lean muscle mass. He will continue on oral antibiotics with clindamycin and Levaquin for an additional 7 days with close primary care follow-up. At time of discharge his renal function had returned to normal, he had no further neck pain or lymphadenopathy present, he was hemodynamically stable and afebrile off midodrine and fludrocortisone, he was afebrile and oxygenating well on room air, he was mentating and ambulating at baseline, and he was sent home in stable condition with close primary care follow-up recommended. Total Time Total Time Spent Total Time Spent (In Minutes): 60 Total Time Includes: Examination of the Patient, Discharge Planning, Medication Reconciliation and Communication With Other Providers Discharge Plan Discharge Items Patient Disposition: Home - Self-Care Reason For Visit: ILLNESS Discharge Diagnosis: Sepsis with subsequent shock requiring vasopressor support secondary to parotitis Acute renal failure secondary to ischemic ATN in the setting of hypotension/sepsis plus renal vasoconstriction from IV contrast and NSAID use. Uncontrolled type 2 diabetes mellitus Morbid obesity Relative adrenal insufficiency DKA-resolved Elevated troponin secondary to demand ischemia in setting of acute critical illness Tobacco use disorder Condition on Discharge: Good Activity: Resume your previous activity Non-emergency contact: Primary Care Provider Call non-emergency contact if: you have any medication questions, your symptoms worsen and your pain is not controlled Follow-up/Referrals: Ena Blue MD, PhD [Physician] - (ANY provider at [facility] within one month of hospital discharge) Elliot Benites DO [Primary Care Provider] - (Date & Time 02/10/2021 2:00 PM Provider Elliot Benites DO Department [facility] ) Diet: Carb Consistent or DM2 and Heart Healthy Addtl Attending Provider Instructions: Please take all medications as instructed on discharge list below. You are being given to antibiotics to take for the next 7 days, please complete the full course. It is recommended that you follow-up with your primary care doctor within 1 week of discharge to ensure you are still doing well after going home from the hospital. Also, you are recommended to have a repeat echocardiogram of your heart within the next 4 weeks. This may be ordered at this time. Further review of your diabetic management should be undertaken as your diabetes is uncontrolled. Uncontrolled diabetes, obesity, and active smoking are independent risk factors for cardiac disease and stroke. Controlling your diabetes to a goal A1c less than 7, decreasing your percent body fat and increasing her lean muscle mass and smoking cessation will all help prevent your risk of heart attack and stroke moving forward. It was a pleasure taking care of you! Please call if you have any questions or problems. You can reach a [facility] hospitalist on duty at [facility] 24 hours a day by calling [phone]. Take care of yourself. 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 [employer] Provider Instructions: -no nsaids now or after discharge beyond ASA 81 mg if recommended by cardiology >he needs CKD clinic f/u at [facility] w/in a month of hospital d/c >> any provider Pending Studies at Discharge: No Stand-Alone Forms: My [facility], Smoking Cessation Medications and DC Order Prescriptions: New clindamycin HCl 150 mg Capsule 450 mg PO Q8H Qty: 63 RF: 0 levofloxacin 750 mg Tablet 750 mg PO DAILY@1100 Qty: 6 RF: 0 hydrocortisone 5 mg tablet 15 mg PO BID Qty: 10 RF: 0 Continued Lantus Solostar U-100 Insulin 100 unit/mL (3 mL) insulin pen 50 unit SUBCUT BID RF: 0 cyclobenzaprine 5 mg tablet 5 mg PO TID PRN (Reason: Muscle Spasm) RF: 0 Discharge Orders: Discharge Order (Routine); Ordered 02/06/21 Ordered By: Karlee Lynne/Other Patient Handouts: Managing Type 2 Diabetes, Managing Diabetes: The A1C Test Admission Data Admit Date/Time: 01/28/21 21:09 Attending Provider: Karlee Nix Admit Provider: Josiah Oakes Primary Care Provider: Elliot Benites Other Providers: Josiah Oakes ; Nikita Walton ; Gabe Moreno ; Augie Schultz I. ; Kvng Bautista II ; Anette De La Cruz ; Amadou Juarez ; Simona Mendes ; Fer Winters ; Ena Blue
[2021-02-06] MEDS ORDERED: INSULIN GLARGINE SOLOSTAR 100 UNITS/ML 3 ML PEN SC SCH (21:00)
== END 2021-02-06 15:36 | disposition home or self-care (01) | DRG 871 ==
LOC: ED 18:20 → EDINP 21:09 → SUATTDRO 21:09 → EDINP 21:29 → 2N 01-29 06:18 → 3N 02-01 01:49 → 2S 02-02 07:54 → 1E 02-02 20:53 → 2S 02-05 14:47

== ENCOUNTER 2024-01-05 05:28 | Observation (INO) ==
[2024-01-05] MEDS: ONDANSETRON 4 MG OD TAB PO STA (05:59)
[2024-01-05] MEDS: FAMOTIDINE 20MG IV PUSH 20 MG/5 ML SYR IV STA (06:28)
[2024-01-05] MEDS: SODIUM CHLORIDE 0.9% 1,000 ML IV ONE (06:28)
[2024-01-05 06:54] LABS: Basophils # (auto) 0.06 K/uL (0.00-0.20); Basophils % (auto) 0.6 %; Eosinophils # (auto) 0.19 K/uL (0.00-0.50); Hemoglobin 15.7 g/dl (14.0-18.0); Immature Granulocytes # (auto) 0.06 K/uL (0.01-0.20); Immature Granulocytes % (auto) 0.6 %; Lymphocytes # (auto) 2.12 K/uL (1.20-3.40); Lymphocytes % (auto) 22.6 %; Mean Corpuscular Hemoglobin 27.4 pg (25.0-34.0); Mean Corpuscular Hgb Conc 33.4 g/dL (32.0-36.0); Mean Corpuscular Volume 81.9 fL (80.0-100.0); Monocytes # (auto) 0.74 K/uL (0.11-0.59); Monocytes % (auto) 7.9 %; Neutrophils % (auto) 66.3 %; Platelet Count 244 K/uL (130-400); RDW Coefficient of Variation 13.5 % (11.5-14.5); RDW Standard Deviation 39.5 fL (36.4-46.3); Red Blood Count 5.74 M/uL (4.70-6.10); White Blood Count 9.37 K/ul (4.8-10.8)
--- NOTE | 2024-01-05 06:56 | Emergency Department Note ---
Impression & Plan Acute pancreatitis, Abdominal pain, Nausea & vomiting ED Provider Note NAME: BENSON GARCIA AGE: 38 SEX: M : 1985 ARRIVES VIA: Walk-In INFORMANT: Patient, ED PROVIDER(S): Ney Rubalcava MD CHIEF COMPLAINT: Abdominal pain, nausea vomiting MEDICAL DECISION MAKING: Patient presents with the above symptoms. IV was established and blood work was obtained. The patient did initially receive Pepcid fluids and Zofran but without significant improvement in symptoms. The patient was ordered IV morphine and Reglan. Patient's blood work does show concern for elevated lipase and CT abdomen pelvis was ordered. Patient's other blood work shows a normal white count H&H and platelet count patient's kidney function is unremarkable. BSG at 264 but nonfasting and not DKA mild hyponatremia [address] abdomen pelvis does not show evidence of pancreatic inflammation. Upon reassessment the patient did have improvement in symptoms. The patient was trialed with isacc norma which made his abdominal pain worse. The patient was trialed with Carafate which also made his symptoms work. I did speak with Darren Razo PA-C with GI. He stated the patient may benefit from staying for further evaluation and monitoring given the patient's elevated lipase and abdominal pain. Discussion w/ other healthcare providers: Darren Razo PA-C with Dr. Michoacano shah/ [facility] Prior /Outside records reviewed: None Differential diagnosis: Appendicitis, testicular torsion, UTI, diverticulitis, obstruction, renal colic, mesenteric adenitis, enteririts, PUD, pancreatitis, biliary pathology, hernia, volvulus, constipation, as well as other pathologies were considered. Diagnostics, as interpreted by me: ECG: Normal sinus rhythm, rate of 92, normal intervals, normal axis no ST elevations or TWI. Cardiac monitoring: An order was placed for continuous cardiac monitoring. The monitor shows a rate of 88 with sinus rhythm. Patient was placed on pulse oximetry Medical decision rules: None Imaging studies: I informally interpreted the patient's CT abdomen pelvis does not show obvious obstruction with formal report to follow. HPI: Patient presents due to concern for abdominal pain nausea vomiting that began after eating a wedge last evening. Patient states that he is vomited maybe a total of 5 times. The patient states that he vomited once at home twice in the waiting area and twice while being in his patient room. Patient denies any alcohol use. The patient does smoke tobacco. He denies any drug use. The patient's pain is primarily in the epigastrium. Patient denies any blood in the vomit or stool no dysuria no issues with defecation. The patient did not take anything for symptoms at home. Patient does have a prior history of an appendectomy. PAST MEDICAL HISTORY: See Below PAST SURGICAL HISTORY: See Below SOCIAL HISTORY: See Below HOME MEDICATIONS: See Below ALLERGIES: See Below VITALS: See Below PHYSICAL EXAMINATION: GENERAL: NAD, non-toxic. EYE EXAM: Normal conjunctiva. PERRL, no anisocoria and EOM's grossly intact w/o pain. OROPHARYNX: Moist mucus membranes, grossly normal dentition. NECK: Trachea midline, no stridor. Supple, no nuchal rigidity, no adenopathy, non-tender. No signs of meningismus. FROM of the neck with good chin to chest and neck extension. LUNGS: Clear to auscultation. Normal chest wall mechanics. HEART: NSR, no MRG. ABDOMEN: Abdomen soft, epigastric and left upper quadrant pain without right upper quadrant pain and no lower abdominal pain, no masses, no rebound or guarding. BACK: No CVA TTP. SKIN: No rashes and no bruising. UPPER EXTREMITIES: Upper extremities are grossly normal. LOWER EXTREMITIES: Grossly normal, no edema. NEURO EXAM: A&O x3, cranial nerves II-XII grossly intact, normal speech, moves all 4 extremities. Past Med/Surg History Medical History DVT prophylaxis DKA (diabetic ketoacidoses) Adrenal insufficiency Elevated troponin Parotitis Oliguria Acute renal failure Hypotension Admitted to intensive care unit Fever Leukocytosis Tachycardia Sepsis Seasonal allergies Strep pharyngitis Abscess, peritonsillar Peritonsillar abscess determined by examination Acute streptococcal tonsillitis Uncontrolled diabetes mellitus Skin ulcer MRSA (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 Discharge planning issues DVT prophylaxis Diabetes mellitus with hyperosmolarity without hyperglycemic hyperosmolar nonketotic coma Morbid obesity Asthma, exercise induced ADD (attention deficit disorder) Tobacco use disorder Diabetes mellitus, type II Bipolar I disorder Depression Surgical History History of surgery on wrist History of tonsillectomy S/P appendectomy Family History Mother Hypertension Father Coronary heart disease Diabetes Brother Diabetes Other Allergies Asthma Cancer Hearing loss Heart disease No family history of adverse response to anesthesia No family history of bleeding disorder Social History Smoking Status: Never smoker Tobacco Type: Cigarettes Cigarettes Per Day: 1/2 PPD; Second Hand Exposure: No; Do You Dip or Chew Tobacco: No; Hx Alcohol Use: Yes Alcohol type Comment: holidays only Alcohol Intake Frequency: Monthly or Less Hx Substance Use: No Preferred Language: Sammarinese Communication Ability: Effective Communication Ability Comment: . 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 Feels Safe at Home: Yes Diet: regular caffeine: Yes during the past year weight has: remained stable Do you think of yourself as: straight/heterosexual Assistive Devices: None Allergies Allergies Allergy/AdvReac Type Severity Reaction Status Date / Time aspirin Allergy Unknown CAN'T Verified 01/05/24 10:27 REMEMBER Cephalosporins Allergy Unknown CAN'T Verified 01/05/24 10:27 REMEMBER--HAS TOLERATED CEFTRIAXONE Penicillins Allergy Unknown CHILDHOOD Verified 01/05/24 10:27 ALLERGY Sulfa (Sulfonamide Allergy Unknown CAN'T Verified 01/05/24 10:27 Antibiotics) REMEMBER sulfamethoxazole Allergy Unknown CAN'T Verified 01/05/24 10:27 REMEMBER trimethoprim Allergy Unknown CAN'T Verified 01/05/24 10:27 REMEMBER ioversol AdvReac Severe Severe PRAFUL Verified 01/05/24 10:27 ketorolac AdvReac Severe Severe PRAFUL Verified 01/05/24 10:27 lisinopril AdvReac Intermediate gi upset Verified 01/05/24 10:27 as per px Home Meds Home Medications Medication Instructions Recorded Confirmed insulin glargine 100 unit/mL (3 55 unit subcut AMPM 11/05/20 01/05/24 mL) subcutaneous pen (Lantus Solostar U-100 Insulin) cyclobenzaprine 5 mg tablet 5 mg PO TID PRN Muscle Spasm 11/06/20 01/05/24 albuterol sulfate 90 mcg/actuation 2 puff inhalation Q6H PRN 01/01/22 01/05/24 aerosol inhaler Shortness Of Breath Or Wheezing dulaglutide 3 mg/0.5 mL 3 mg subcut WK 12/01/23 01/05/24 subcutaneous pen injector (Trulicity) ibuprofen 600 mg tablet 600 mg PO Q6H PRN Pain 01/05/24 01/05/24 Results & Data (ED) Vital Signs Vital Signs - 24 hr 01/05/24 05:51 01/05/24 06:01 01/05/24 06:11 Temperature 36.7 C Temperature Source Temporal Artery Scan Pulse Rate 93 H 93 H 93 H Pulse Rate from SpO2 Sensor Respiratory Rate 20 20 Blood Pressure 168/117 H 162/105 H Blood Pressure Mean 134 124 Pulse Oximetry 95 94 Oxygen Delivery Method Room Air Room Air Sepsis Recent Fever Within 48 Hours No Sepsis New/Unexplained Change in Mental Status No Sepsis Action Taken by Nursing No Action Required 01/05/24 06:43 01/05/24 07:00 01/05/24 07:30 Temperature Temperature Source Pulse Rate 90 89 Pulse Rate from SpO2 Sensor 91 H 88 Respiratory Rate 21 26 H Blood Pressure 166/119 H 170/108 H Blood Pressure Mean 134 128 Pulse Oximetry 95 94 93 Oxygen Delivery Method Room Air Sepsis Recent Fever Within 48 Hours Sepsis New/Unexplained Change in Mental Status Sepsis Action Taken by Nursing 01/05/24 08:00 01/05/24 08:30 01/05/24 09:00 Temperature Temperature Source Pulse Rate 90 91 H 84 Pulse Rate from SpO2 Sensor 91 H 94 H 84 Respiratory Rate 19 20 19 Blood Pressure 172/98 H 103/71 153/75 H Blood Pressure Mean 122 81 101 Pulse Oximetry 94 92 93 Oxygen Delivery Method Sepsis Recent Fever Within 48 Hours Sepsis New/Unexplained Change in Mental Status Sepsis Action Taken by Nursing 01/05/24 09:30 01/05/24 10:00 01/05/24 10:06 Temperature Temperature Source Pulse Rate 84 88 93 H Pulse Rate from SpO2 Sensor 83 87 Respiratory Rate 19 19 Blood Pressure 145/89 H 130/75 Blood Pressure Mean 107 93 Pulse Oximetry 96 95 Oxygen Delivery Method Room Air Room Air Sepsis Recent Fever Within 48 Hours Sepsis New/Unexplained Change in Mental Status Sepsis Action Taken by Nursing 01/05/24 11:00 Temperature Temperature Source Pulse Rate 90 Pulse Rate from SpO2 Sensor Respiratory Rate 16 Blood Pressure 99/58 L Blood Pressure Mean 71 Pulse Oximetry 94 Oxygen Delivery Method Room Air Sepsis Recent Fever Within 48 Hours Sepsis New/Unexplained Change in Mental Status Sepsis Action Taken by Alf Medications Current Medication List: was personally reviewed by me Laboratory Data Attestation: I reviewed the patient's lab results. 01/05/24 06:25 01/05/24 06:25 Lab Results 01/05/24 Range/Units 06:25 WBC 9.37 (4.8-10.8) K/ul RBC 5.74 (4.70-6.10) M/uL Hgb 15.7 (14.0-18.0) g/dl Hct 47.0 (42.0-52.0) % MCV 81.9 (80.0-100.0) fL MCH 27.4 (25.0-34.0) pg MCHC 33.4 (32.0-36.0) g/dL RDW Std Deviation 39.5 (36.4-46.3) fL RDW Coeff of Balck 13.5 (11.5-14.5) % Plt Count 244 (130-400) K/uL MPV 10.0 (9.4-12.4) fL Immature Gran % (Auto) 0.6 % Neut % (Auto) 66.3 % Lymph % (Auto) 22.6 % Candler % (Auto) 7.9 % Eos % (Auto) 2.0 % Baso % (Auto) 0.6 % Neut # (Auto) 6.20 (1.40-6.50) K/uL Lymph # (Auto) 2.12 (1.20-3.40) K/uL Candler # (Auto) 0.74 H (0.11-0.59) K/uL Eos # (Auto) 0.19 (0.00-0.50) K/uL Baso # (Auto) 0.06 (0.00-0.20) K/uL Immature Gran # (Auto) 0.06 (0.01-0.20) K/uL Sodium 135 L (136-145) mmol/L Potassium 3.9 (3.5-5.1) mmol/L Chloride 101 (98-107) mmol/L Carbon Dioxide 25 (21-32) mmol/L Anion Gap 9 (3-11) BUN 23 (6-23) mg/dl Creatinine 0.75 (0.6-1.4) mg/dl Est Cr Clr Drug Dosing 224.6 ml/min Est GFR ( Amer) 133.0 ml/min Est GFR (Non-Af Amer) 114.7 ml/min BUN/Creatinine Ratio 30.7 H (10-20) Glucose 264 H (70-99(Fasting)) mg/dl Calcium 8.9 (8.6-10.3) mg/dl Total Bilirubin 0.4 (0.2-1.0) mg/dl Direct Bilirubin 0.1 (0-0.2) mg/dl AST 15 (13-39) U/L ALT 25 (7-52) U/L Alkaline Phosphatase 68 (34-104) U/L Total Protein 7.3 (6.0-8.3) gm/dl Albumin 4.0 (3.4-5.0) gm/dl Globulin 3.3 (2.5-4.0) gm/dl Albumin/Globulin Ratio 1.2 (0.9-2) Lipase 379 H (11-82) U/L Administered Medications Lactated Ringer's (Lr) 1,000 mls @ 200 mls/hr IV .Q5H DIANE Stop: 02/04/24 11:56 Last Admin: 01/05/24 12:21 Dose: 200 mls/hr Documented By: JEZ Pantoprazole Sodium 40 mg/ (Syringe) 10 mls @ 5 mls/min IV BID DIANE Stop: 02/04/24 12:14 Last Admin: 01/05/24 12:21 Dose: 5 mls/min Documented By: JEZ Insulin Glargine (Lantus Per Unit Charge) 30 units SQ BID DIANE Stop: 02/04/24 11:44 Last Admin: 01/05/24 12:20 Dose: 30 units Documented By: JEZ Co-signed By: RULA Discontinued Medications Sodium Chloride (Nss) 1,000 mls @ 999 mls/hr IV .Q1H1M ONE Stop: 01/05/24 07:10 Last Infusion: 01/05/24 07:29 Dose: Infused Documented By: Admin: 01/05/24 06:28 Dose: 999 mls/hr Documented By: KMJonas Famotidine (Pepcid 20mg Iv Push) 20 mg in 5 mls @ 2.5 mls/min IV NOW STA Stop: 01/05/24 06:11 Last Admin: 01/05/24 06:28 Dose: 2.5 mls/min Documented By: JILL Ioversol (Optiray 320 125ml) 112 ml IV ONCE ONE Stop: 01/05/24 08:44 Last Admin: 01/05/24 08:44 Dose: 112 ml Documented By: DEBRA Metoclopramide HCl (Metoclopramide Hcl Inj 5 Mg/Ml 2 Ml Vial) 10 mg IV NOW STA Stop: 01/05/24 07:38 Last Admin: 01/05/24 08:17 Dose: 10 mg Documented By: RULA Morphine Sulfate (Morphine Sulfate 10 Mg/Ml Carp/Vial) 8 mg IV NOW STA Stop: 01/05/24 07:38 Last Admin: 01/05/24 08:16 Dose: 8 mg Documented By: RULA Ondansetron HCl (Ondansetron 4 Mg Od Tab) 4 mg PO NOW STA Stop: 01/05/24 05:55 Last Admin: 01/05/24 05:59 Dose: 4 mg Documented By: JILL Sucralfate (Sucralfate 1 Gm/10 Ml Udc) 1 gm PO NOW STA Stop: 01/05/24 10:17 Last Admin: 01/05/24 10:22 Dose: 1 gm Documented By: GHADA Imaging Data Radiologist's Impression: Abdomen/Pelvis CT 01/05/24 07:37 CT SCAN OF THE ABDOMEN AND PELVIS WITH IV CONTRAST CLINICAL HISTORY: Epigastric abdominal pain. Elevated lipase. COMPARISON STUDY: Abdominal CT dated 06/25/2022. TECHNIQUE: Following the IV administration of 112 cc of Optiray 320, CT scan of the abdomen and pelvis is performed from the lung bases to the proximal femora. Images are reviewed in the axial, sagittal, and coronal planes. IV contrast was administered without complication. A dose lowering technique was utilized adhering to the principles of ALARA. The examination is degraded by large body habitus, and by streak artifact from the body wall abutting the CT gantry. CT DOSE: 1634.04 mGy.cm FINDINGS: Lung bases: The heart is normal in size and without pericardial effusion. The lung bases are clear. There is a small hiatal hernia. Liver: The contrast-enhanced liver is enlarged, measuring 22.6 cm in length. The liver demonstrates diffusely diminished attenuation indicating steatosis. There is no intrahepatic biliary ductal dilatation. The hepatic veins and portal veins are patent. Gallbladder: Unremarkable. Spleen: The spleen is mildly enlarged measuring 14.2 cm in length. Pancreas: The pancreas is normal as visualized. The gland enhances throughout. The duct is normal in caliber. No peripancreatic fluid collection is seen. The splenic vein is patent. Adrenal glands: Unremarkable. Kidneys: The contrast enhanced kidneys are normal in size and without hydronephrosis. The kidneys enhance symmetrically. Renal sinus cysts are noted on the right. Abdominal vasculature: The abdominal aorta is normal in course and caliber. Bowel: There is mild to moderate colonic fecal retention. No bowel obstruction is seen. The appendix is not identified and reported surgically absent. An appendiceal stump is suggested on image #[id number]. Peritoneum: There is no intraperitoneal free air or abdominal ascites. There is laxity of the ventral abdominal wall with diastases of the rectus musculature and protrusion of abdominal contents. Lymphadenopathy: None. Pelvic viscera: The bladder, prostate, and seminal vesicles are normal as visualized. Skeletal structures: No lytic or blastic lesions are seen. IMPRESSION: 1. No acute infectious or inflammatory findings are identified in the abdomen or pelvis. 2. The pancreas is normal as imaged. Correlate with clinical and laboratory findings. 3. Hepatomegaly and hepatic steatosis. 4. Mild splenomegaly. 5. Additional findings as above. ACT 112: Negative or not required by law. Electronically signed by: Alvaro Ayala M.D. 01/05/2024 9:20 AM Discharge Plan Visit Data Chief Complaint: Abdominal Pain Stated Complaint: ABD PAIN,VOMITING ED Provider: Ney Rubalcava Discharge Problem: Acute pancreatitis, Abdominal pain, Nausea & vomiting Patient Disposition: Admitted As Inpatient Discharge Instructions Interventions: ED Discharge Assessment Last Done: 01/05/24 11:58 Discharge Problem: Acute pancreatitis Qualifiers: Pancreatitis type: unspecified pancreatitis type Acute pancreatitis complication: no infection or necrosis Qualified Code(s): K85.90 - Acute pancreatitis without necrosis or infection, unspecified Abdominal pain Qualifiers: Abdominal location: epigastric Qualified Code(s): R10.13 - Epigastric pain Nausea & vomiting Qualifiers: Vomiting type: unspecified Qualified Code(s): R11.2 - Nausea with vomiting, unspecified
[2024-01-05 07:25] LABS: Albumin Globulin Ratio 1.2 (0.9-2); BUN Creatinine Ratio 30.7 (10-20); Bilirubin Direct 0.1 mg/dl (0-0.2); Bilirubin,Total 0.4 mg/dl (0.2-1.0); Calcium 8.9 mg/dl (8.6-10.3); Creatinine Clr Calc Pharmacy 224.6 ml/min; Est GFR (Non-African American) 114.7 ml/min; Globulin 3.3 gm/dl (2.5-4.0); Potassium 3.9 mmol/L (3.5-5.1); Total Protein 7.3 gm/dl (6.0-8.3)
[2024-01-05] MEDS: MoRPHine SULFATE 10 MG/ML CARP/VIAL IV STA (08:16)
[2024-01-05] MEDS: METOCLOPRAMIDE HCL INJ 5 MG/ML 2 ML VIAL IV STA (08:17)
[2024-01-05] MEDS: OPTIRAY 320 125ml IV ONE (08:44)
--- NOTE | 2024-01-05 09:22 | CT Scan Report ---
CT SCAN OF THE ABDOMEN AND PELVIS WITH IV CONTRAST CLINICAL HISTORY: Epigastric abdominal pain. Elevated lipase. COMPARISON STUDY: Abdominal CT dated 06/25/2022. TECHNIQUE: Following the IV administration of 112 cc of Optiray 320, CT scan of the abdomen and pelv is is performed from the lung bases to the proximal femora. Images are reviewed in the axial, sagitta l, and coronal planes. IV contrast was administered without complication. A dose lowering technique w as utilized adhering to the principles of ALARA. The examination is degraded by large body habitus, a nd by streak artifact from the body wall abutting the CT gantry. CT DOSE: 1634.04 mGy.cm FINDINGS: Lung bases: The heart is normal in size and without pericardial effusion. The lung bases are clear. T here is a small hiatal hernia. Liver: The contrast-enhanced liver is enlarged, measuring 22.6 cm in length. The liver demonstrates d iffusely diminished attenuation indicating steatosis. There is no intrahepatic biliary ductal dilatat ion. The hepatic veins and portal veins are patent. Gallbladder: Unremarkable. Spleen: The spleen is mildly enlarged measuring 14.2 cm in length. Pancreas: The pancreas is normal as visualized. The gland enhances throughout. The duct is normal in caliber. No peripancreatic fluid collection is seen. The splenic vein is patent. Adrenal glands: Unremarkable. Kidneys: The contrast enhanced kidneys are normal in size and without hydronephrosis. The kidneys enh ance symmetrically. Renal sinus cysts are noted on the right. Abdominal vasculature: The abdominal aorta is normal in course and caliber. Bowel: There is mild to moderate colonic fecal retention. No bowel obstruction is seen. The appendix is not identified and reported surgically absent. An appendiceal stump is suggested on image #[id number]. Peritoneum: There is no intraperitoneal free air or abdominal ascites. There is laxity of the ventral abdominal wall with diastases of the rectus musculature and protrusion of abdominal contents. Lymphadenopathy: None. Pelvic viscera: The bladder, prostate, and seminal vesicles are normal as visualized. Skeletal structures: No lytic or blastic lesions are seen. IMPRESSION: 1. No acute infectious or inflammatory findings are identified in the abdomen or pelvis. 2. The pancreas is normal as imaged. Correlate with clinical and laboratory findings. 3. Hepatomegaly and hepatic steatosis. 4. Mild splenomegaly. 5. Additional findings as above. ACT 112: Negative or not required by law. Electronically signed by: Alvaro Ayala M.D. 01/05/2024 9:20 AM
[2024-01-05] MEDS: SUCRALFATE 1 GM/10 ML UDC PO STA (10:22)
--- NOTE | 2024-01-05 11:15 | History & Physical Report ---
Date of Service January 05, 2024 Assessment & Plan (1) Acute pancreatitis: (2) Diabetes mellitus with hyperglycemia: Plan 38 year old morbidly obese male with DM-2 who presented with N/V/diarrhea and being admitted for mild acute pancreatitis Acute pancreatitis- mild. Lipase 379, CT A/P unremarkable. First episode. Will keep npo, iv fluids, pain management and antiemetics prn. Recheck labs in am. T2DM with hyperglycemia- home regimen is trulicity once weekly which he has not taken for today. Also on lantus 55 U bid which he hasn't taken today yet. Given npo status, will decrease dose of lantus and put him on SSI q4hr prn. Adjust as indicated Tobacco abuse- smokes 1/2 ppd. Declines nicoderm patch Morbid obesity- BMI 46. Weight loss indicated. DVT ppx- sc lovenox Dispo- Observation in [facility] Time spent- Approx 85 mins History of Present Illness Chief Complaint: nausea, vomiting, epigastric pain Primary Care Provider: Elliot Benites DO 35 year old male with h/o diabetes mellitus who came to the ED with nausea, vomiting and abd pain since last night. Patient ate wedge with wings and ic ecream last night for dinner after which he had an episode of vomiting and abd pain. The pain got worse this morning that prompted him to come to the ED. He had 6 more episodes of vomiting after coming to the ED. He was given pepcid, sucralfate and isacc norma which made the pain worse. He had iv morphine and reglan which helped him. Pain 2/10 during my encounter. No more nausea. His lipase elevated but CT A/P negative. Other labs unremarkable. We were consulted for management of his acute pancreatitis. Hemodynamically stable and comfortable during my encounter. Smokes 1/2 ppd but declines nicotine patch. 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 Allergy/AdvReac Type Severity Reaction Status Date / Time aspirin Allergy Unknown CAN'T Verified 01/05/24 10:27 REMEMBER Cephalosporins Allergy Unknown CAN'T Verified 01/05/24 10:27 REMEMBER--HAS TOLERATED CEFTRIAXONE Penicillins Allergy Unknown CHILDHOOD Verified 01/05/24 10:27 ALLERGY Sulfa (Sulfonamide Allergy Unknown CAN'T Verified 01/05/24 10:27 Antibiotics) REMEMBER sulfamethoxazole Allergy Unknown CAN'T Verified 01/05/24 10:27 REMEMBER trimethoprim Allergy Unknown CAN'T Verified 01/05/24 10:27 REMEMBER ioversol AdvReac Severe Severe PRAFUL Verified 01/05/24 10:27 ketorolac AdvReac Severe Severe PRAFUL Verified 01/05/24 10:27 lisinopril AdvReac Intermediate gi upset Verified 01/05/24 10:27 as per px Home Medications Medication Instructions Recorded Confirmed Type insulin glargine 100 unit/mL (3 55 unit subcut AMPM 11/05/20 01/05/24 History mL) subcutaneous pen (Lantus Solostar U-100 Insulin) cyclobenzaprine 5 mg tablet 5 mg PO TID PRN Muscle Spasm 11/06/20 01/05/24 History albuterol sulfate 90 mcg/actuation 2 puff inhalation Q6H PRN 01/01/22 01/05/24 History aerosol inhaler Shortness Of Breath Or Wheezing dulaglutide 3 mg/0.5 mL 3 mg subcut WK 12/01/23 01/05/24 History subcutaneous pen injector (Trulicity) ibuprofen 600 mg tablet 600 mg PO Q6H PRN Pain 01/05/24 01/05/24 History Past Med/Surg History Medical History DVT prophylaxis DKA (diabetic ketoacidoses) Adrenal insufficiency Elevated troponin Parotitis Oliguria Acute renal failure Hypotension Admitted to intensive care unit Fever Leukocytosis Tachycardia Sepsis Seasonal allergies Strep pharyngitis Abscess, peritonsillar Peritonsillar abscess determined by examination Acute streptococcal tonsillitis Uncontrolled diabetes mellitus Skin ulcer MRSA (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 Discharge planning issues DVT prophylaxis Diabetes mellitus with hyperosmolarity without hyperglycemic hyperosmolar nonketotic coma Morbid obesity Asthma, exercise induced ADD (attention deficit disorder) Tobacco use disorder Diabetes mellitus, type II Bipolar I disorder Depression Surgical History History of surgery on wrist History of tonsillectomy S/P appendectomy Family History Mother Hypertension Father Coronary heart disease Diabetes Brother Diabetes Other Allergies Asthma Cancer Hearing loss Heart disease No family history of adverse response to anesthesia No family history of bleeding disorder Social History Smoking Status: Never smoker Tobacco Type: Cigarettes Cigarettes Per Day: 1/2 PPD; Second Hand Exposure: No; Do You Dip or Chew Tobacco: No; Hx Alcohol Use: Yes Alcohol type Comment: holidays only Alcohol Intake Frequency: Monthly or Less Hx Substance Use: No Preferred Language: Nigerian Communication Ability: Effective Communication Ability Comment: . 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 Feels Safe at Home: Yes Diet: regular caffeine: Yes during the past year weight has: remained stable Do you think of yourself as: straight/heterosexual Assistive Devices: None Review of Systems Review of Systems: All systems reviewed & are unremarkable except as noted in Subjective Physical Exam Physical Exam: General: Morbidly obese, Lying comfortably in bed, not in acute distress, on room air HEENT: EOMI, SIMON, MMM Chest: Clear breath sounds bilaterally, no wheezes or crackles CVS: Regular rate and rhythm, normal heart sounds, no murmur Abdomen: Soft, epigastric/periumbilical tenderness, not distended, normal bowel sounds. Periumb wound noted- improving per patient. Follows wound care. Neuro: Awake, alert, oriented, conversing well, non focal Extremities: No cyanosis, clubbing or edema Results & Data Results & Data Vital Signs (Past 12 Hours) Vital Signs Temp Pulse Resp BP Pulse Ox O2 Del Method 01/05/24 11:00 90 16 99/58 L 94 Room Air 01/05/24 10:06 93 H 01/05/24 10:00 88 19 130/75 95 Room Air 01/05/24 09:30 84 19 145/89 H 96 Room Air 01/05/24 09:00 84 19 153/75 H 93 01/05/24 08:30 91 H 20 103/71 92 01/05/24 08:00 90 19 172/98 H 94 01/05/24 07:30 89 26 H 170/108 H 93 01/05/24 07:00 90 21 166/119 H 94 01/05/24 06:43 95 Room Air 01/05/24 06:11 93 H 01/05/24 06:01 93 H 20 162/105 H 94 Room Air 01/05/24 05:51 36.7 C 93 H 20 168/117 H 95 Room Air Laboratory Results Short CBC 01/05/24 Range/Units 06:25 WBC 9.37 (4.8-10.8) K/ul Hgb 15.7 (14.0-18.0) g/dl Hct 47.0 (42.0-52.0) % Plt Count 244 (130-400) K/uL BMP 01/05/24 06:25 Sodium 135 L Potassium 3.9 Chloride 101 Carbon Dioxide 25 BUN 23 Creatinine 0.75 Glucose 264 H Calcium 8.9 Liver Function 01/05/24 Range/Units 06:25 Total Bilirubin 0.4 (0.2-1.0) mg/dl Direct Bilirubin 0.1 (0-0.2) mg/dl AST 15 (13-39) U/L ALT 25 (7-52) U/L Alkaline Phosphatase 68 (34-104) U/L Albumin 4.0 (3.4-5.0) gm/dl Diagnostic Findings Abdomen/Pelvis CT 01/05/24 07:37 CT SCAN OF THE ABDOMEN AND PELVIS WITH IV CONTRAST CLINICAL HISTORY: Epigastric abdominal pain. Elevated lipase. COMPARISON STUDY: Abdominal CT dated 06/25/2022. TECHNIQUE: Following the IV administration of 112 cc of Optiray 320, CT scan of the abdomen and pelvis is performed from the lung bases to the proximal femora. Images are reviewed in the axial, sagittal, and coronal planes. IV contrast was administered without complication. A dose lowering technique was utilized adhering to the principles of ALARA. The examination is degraded by large body habitus, and by streak artifact from the body wall abutting the CT gantry. CT DOSE: 1634.04 mGy.cm FINDINGS: Lung bases: The heart is normal in size and without pericardial effusion. The lung bases are clear. There is a small hiatal hernia. Liver: The contrast-enhanced liver is enlarged, measuring 22.6 cm in length. The liver demonstrates diffusely diminished attenuation indicating steatosis. There is no intrahepatic biliary ductal dilatation. The hepatic veins and portal veins are patent. Gallbladder: Unremarkable. Spleen: The spleen is mildly enlarged measuring 14.2 cm in length. Pancreas: The pancreas is normal as visualized. The gland enhances throughout. The duct is normal in caliber. No peripancreatic fluid collection is seen. The splenic vein is patent. Adrenal glands: Unremarkable. Kidneys: The contrast enhanced kidneys are normal in size and without hydronephrosis. The kidneys enhance symmetrically. Renal sinus cysts are noted on the right. Abdominal vasculature: The abdominal aorta is normal in course and caliber. Bowel: There is mild to moderate colonic fecal retention. No bowel obstruction is seen. The appendix is not identified and reported surgically absent. An appendiceal stump is suggested on image #[id number]. Peritoneum: There is no intraperitoneal free air or abdominal ascites. There is laxity of the ventral abdominal wall with diastases of the rectus musculature and protrusion of abdominal contents. Lymphadenopathy: None. Pelvic viscera: The bladder, prostate, and seminal vesicles are normal as visualized. Skeletal structures: No lytic or blastic lesions are seen. IMPRESSION: 1. No acute infectious or inflammatory findings are identified in the abdomen or pelvis. 2. The pancreas is normal as imaged. Correlate with clinical and laboratory findings. 3. Hepatomegaly and hepatic steatosis. 4. Mild splenomegaly. 5. Additional findings as above. ACT 112: Negative or not required by law. Electronically signed by: Alvaro Ayala M.D. 01/05/2024 9:20 AM
[2024-01-05] MEDS ORDERED: GLUCAGON FOR INJ 1 MG VIAL SQ PRN (11:35)
[2024-01-05] MEDS ORDERED: ALBUTEROL HFA 8 GM INHALER INH PRN (11:35)
[2024-01-05] MEDS ORDERED: GLUCOSE 40% GEL 15 GM TUBE PO PRN (11:35)
[2024-01-05] MEDS ORDERED: DEXTROSE 50% 50 ML SYRINGE IV PRN (11:35)
[2024-01-05] MEDS ORDERED: GLUCOSE 10 TAB/TUBE PO PRN (11:35)
[2024-01-05] MEDS ORDERED: CARBOHYDRATES FOR HYPOGLYCEMIA PO PRN (11:35)
[2024-01-05] MEDS ORDERED: ONDANSETRON INJ 2 MG/ML 2 ML VIAL IV PRN (11:57)
[2024-01-05] MEDS: LANTUS PER UNIT CHARGE SQ SCH (12:20)
[2024-01-05] MEDS: PANTOprazole 40 MG in SYRINGE 0 ML IV SCH (12:21)
[2024-01-05] MEDS: LACTATED RINGER'S 1,000 ML IV SCH (12:21)
[2024-01-05] MEDS: HYDROmorphone INJ 0.5 MG/0.5 ML SYR IV PRN (16:19)
[2024-01-05] MEDS: INSULIN ASPART PER UNIT CHARGE SC SCH (18:26)
[2024-01-05] MEDS ORDERED: MoRPHine SULFATE 4 MG/ML 1 ML CARP\\VIAL IV PRN (23:20)
[2024-01-05] MEDS ORDERED: oxyCODONE HCL IR 5 MG TAB (IMMEDIATE RELEASE) PO PRN (23:21)
[2024-01-06] MEDS: INSULIN ASPART PER UNIT CHARGE SC SCH ×2 (00:30→12:44)
[2024-01-06] MEDS: ACETAMINOPHEN 500 MG TAB PO PRN (00:35)
[2024-01-06 05:32] LABS: Basophils # (auto) 0.05 K/uL (0.00-0.20); Basophils % (auto) 0.6 %; Eosinophils # (auto) 0.21 K/uL (0.00-0.50); Eosinophils % (auto) 2.3 %; Hematocrit (blood only) 41.9 % (42.0-52.0); Hemoglobin 14.2 g/dl (14.0-18.0); Immature Granulocytes # (auto) 0.06 K/uL (0.01-0.20); Immature Granulocytes % (auto) 0.7 %; Lymphocytes # (auto) 3.05 K/uL (1.20-3.40); Lymphocytes % (auto) 33.6 %; Mean Corpuscular Hemoglobin 27.7 pg (25.0-34.0); Mean Corpuscular Hgb Conc 33.9 g/dL (32.0-36.0); Mean Corpuscular Volume 81.8 fL (80.0-100.0); Mean Platelet Volume 10.3 fL (9.4-12.4); Monocytes # (auto) 0.66 K/uL (0.11-0.59); Monocytes % (auto) 7.3 %; Neutrophils # (auto) 5.06 K/uL (1.40-6.50); Neutrophils % (auto) 55.5 %; Platelet Count 230 K/uL (130-400); RDW Coefficient of Variation 13.5 % (11.5-14.5); RDW Standard Deviation 40.4 fL (36.4-46.3); Red Blood Count 5.12 M/uL (4.70-6.10); White Blood Count 9.09 K/ul (4.8-10.8)
[2024-01-06 06:15] LABS: Albumin Globulin Ratio 1.2 (0.9-2); Albumin Level 3.3 gm/dl (3.4-5.0); BUN Creatinine Ratio 17.6 (10-20); Bilirubin,Total 0.6 mg/dl (0.2-1.0); Calcium 8.3 mg/dl (8.6-10.3); Chol HDL Ratio 5.2 (0-5); Creatinine Clr Calc Pharmacy 254.5 ml/min; Est GFR (African American) 138.5 ml/min; Est GFR (Non-African American) 119.5 ml/min; Globulin 2.8 gm/dl (2.5-4.0); Potassium 3.7 mmol/L (3.5-5.1); Total Protein 6.1 gm/dl (6.0-8.3)
[2024-01-06] MEDS: ENOXAPARIN INJ 40 MG/0.4 ML SYR SQ SCH (07:43)
[2024-01-06] MEDS ORDERED: PHARMACY GLYCEMIC MGMT CONSULT PRN (08:44)
--- NOTE | 2024-01-06 10:16 | Pharmacy Report ---
Pharmacy Glycemic Short Note 2 - Date of Service January 06, 2024 - Glycemic Short BSG Results (Last 24 hours): 01/05/24 01/05/24 01/05/24 12:15 16:22 20:13 Glucose POC Glucose 217 H 157 H 131 H 01/06/24 01/06/24 01/06/24 00:30 04:50 05:27 Glucose 150 H POC Glucose 129 H 153 H 01/06/24 09:11 Glucose POC Glucose 141 H OUTPATIENT ANTIDIABETIC REGIMEN: * Lantus 55 units SC BID * Trulicity 3 mg weekly (last dose on 12/29/23) HbA1c: 10% on 12/01/23 ASSESSMENT: * 38 y/o M admitted yesterday with mild acute pancreatitis. He has history of Type 2 diabetes and morbid obesity. Diabetes managed with basal insulin and weekly Trulicity at home. Holding Trulicity while admitted and utilizing basal and bolus insulins for glycemic control. * Patient was started on basal insulin 30 units BID yesterday (this is a 45% reduction from home dose). And Novolog with parameters between stress of 2 and 3 (using adjusted body wt). Patient was NPO yesterday. * Pharmacy consulted for glycemic management today. Diet started with breakfast today. * BSGs yesterday were well controlled once insulins were initiated at lunch time- [phone] mg/dl. * Fasting BSG today = 150 mg/dl. Continue basal insulin same as yesterday for now. PLAN FOR INPATIENT GLYCEMIC CONTROL: * Hold outpatient Trulicity * Basal insulin * Lantus 30 units SQ BID * Bolus insulin * NovoLog per scale ACHS or Q6hrs while NPO * Goal Range: Low 110 mg/dL - High 140 mg/dL * Correction Factor: 10 mg/dL/unit * Nutritional / Prandial insulin per carb ratio of 1 unit per 6 grams CHO consumed
--- NOTE | 2024-01-06 12:33 | Hospitalist Progress Note ---
Date of Service January 06, 2024 Assessment & Plan (1) Acute pancreatitis: (2) Diabetes mellitus with hyperglycemia: Plan 38 year old morbidly obese male with DM-2 who presented with N/V/diarrhea and being admitted for mild acute pancreatitis Acute pancreatitis Hepatic steatosis Suspected gastritis/GERD --CT ABD:No acute infectious or inflammatory findings are identified in the abdomen or pelvis. The pancreas is normal as imaged. Correlate with clinical and laboratory findings. Hepatomegaly and hepatic steatosis. Mild splenomegaly. Lipase levels normalized IV fluids discontinued Tolerating regular diet Started on Protonix DM II with hyperglycemia Home regimen is trulicity once weekly Continue insulin while hospitalized Monitor blood glucose limits Tobacco abuse- smokes 1/2 ppd. Declines nicoderm patch Counseled to quit smoking Morbid obesity BMI 48 DVT Px: Lovenox SQ Disposition Home Admission and Anticipated Discharge Date Admission Date: January 05, 2024 Subjective Patient is seen and examined at bedside Nausea, abdominal pain resolved Tolerating regular diet Denies any chest pain, dyspnea, dizziness Offers no other complaints Plan to be discharged home today Review of Systems Review of Systems: All systems reviewed & are unremarkable except as noted in Subjective Physical Exam Physical Exam: Physical Exam: Vitals signs as noted above General Appearance:Obese, no apparent distress Head: normocephalic, Atraumatic Eyes: normal inspection, EOMI Neck: supple, Trachea midline Respiratory/Chest: Normal breath sounds, CTA, No accessory muscle use Cardiovascular: S1, S2, No murmur Abdomen/GI:Soft, Non tender, Bowel sounds present Extremities/Musculoskeletal:normal inspection, no edema Neurologic/Psych:AAOX3, grossly no focal neurological deficits Skin: normal color, warm Results & Data Results & Data Vital Signs (Past 12 Hours) Vital Signs Temp Pulse Pulse Resp BP BP Pulse Ox 01/06/24 11:23 36.7 C 80 20 124/74 135/87 92 01/06/24 10:53 36.7 C 80 20 135/87 92 01/06/24 07:24 36.5 C 77 20 145/83 H 95 01/06/24 07:21 78 01/06/24 05:13 36.7 C 83 20 117/74 93 O2 Del Method 01/06/24 11:23 01/06/24 10:53 Room Air 01/06/24 07:24 Room Air 01/06/24 07:21 01/06/24 05:13 Room Air Laboratory Results Short CBC 01/06/24 Range/Units 04:50 WBC 9.09 (4.8-10.8) K/ul Hgb 14.2 (14.0-18.0) g/dl Hct 41.9 L (42.0-52.0) % Plt Count 230 (130-400) K/uL BMP 01/06/24 04:50 Sodium 137 Potassium 3.7 Chloride 104 Carbon Dioxide 25 BUN 12 Creatinine 0.68 Glucose 150 H Calcium 8.3 L Liver Function 01/06/24 Range/Units 04:50 Total Bilirubin 0.6 (0.2-1.0) mg/dl AST 16 (13-39) U/L ALT 22 (7-52) U/L Alkaline Phosphatase 59 (34-104) U/L Albumin 3.3 L (3.4-5.0) gm/dl (1) Acute pancreatitis Acute pancreatitis complication: no infection or necrosis Pancreatitis type: unspecified pancreatitis type Qualified Code(s): K85.90 - Acute pancreatitis without necrosis or infection, unspecified
--- NOTE | 2024-01-06 12:48 | Discharge Summary ---
Date of Service January 06, 2024 Admission HPI Per Admitting Provider 35 year old male with h/o diabetes mellitus who came to the ED with nausea, vomiting and abd pain since last night. Patient ate wedge with wings and icecream last night for dinner after which he had an episode of vomiting and abd pain. The pain got worse this morning that prompted him to come to the ED. He had 6 more episodes of vomiting after coming to the ED. He was given pepcid, sucralfate and isacc norma which made the pain worse. He had iv morphine and reglan which helped him. Pain 2/10 during my encounter. No more nausea. His lipase elevated but CT A/P negative. Other labs unremarkable. We were consulted for management of his acute pancreatitis. Hemodynamically stable and comfortable during my encounter. Smokes 1/2 ppd but declines nicotine patch. He does not drink alcohol except for new year and birthday. 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 Admission Exam Per Admitting Provider General: Morbidly obese, Lying comfortably in bed, not in acute distress, on room air HEENT: EOMI, SIMON, MMM Chest: Clear breath sounds bilaterally, no wheezes or crackles CVS: Regular rate and rhythm, normal heart sounds, no murmur Abdomen: Soft, epigastric/periumbilical tenderness, not distended, normal bowel sounds. Periumb wound noted- improving per patient. Follows wound care. Neuro: Awake, alert, oriented, conversing well, non focal Extremities: No cyanosis, clubbing or edema Principal Diagnosis Acute pancreatitis Hepatic steatosis GERD Discharge Data Allergies Allergy/AdvReac Type Severity Reaction Status Date / Time aspirin Allergy Unknown CAN'T Verified 01/05/24 10:27 REMEMBER Cephalosporins Allergy Unknown CAN'T Verified 01/05/24 10:27 REMEMBER--HAS TOLERATED CEFTRIAXONE Penicillins Allergy Unknown CHILDHOOD Verified 01/05/24 10:27 ALLERGY Sulfa (Sulfonamide Allergy Unknown CAN'T Verified 01/05/24 10:27 Antibiotics) REMEMBER sulfamethoxazole Allergy Unknown CAN'T Verified 01/05/24 10:27 REMEMBER trimethoprim Allergy Unknown CAN'T Verified 01/05/24 10:27 REMEMBER ioversol AdvReac Severe Severe PRAFUL Verified 01/05/24 10:27 ketorolac AdvReac Severe Severe PRAFUL Verified 01/05/24 10:27 hydromorphone [From Dilaudid] AdvReac Intermediate Nausea Verified 01/05/24 23:22 lisinopril AdvReac Intermediate gi upset Verified 01/05/24 10:27 as per px Consultations 01/05/24 11:16 ED Decision to Admit Stat Procedures Performed Laboratory Results WBC 9.09 K/ul (4.8-10.8) 01/06/24 04:50 RBC 5.12 M/uL (4.70-6.10) 01/06/24 04:50 Hgb 14.2 g/dl (14.0-18.0) 01/06/24 04:50 Hct 41.9 % (42.0-52.0) L 01/06/24 04:50 MCV 81.8 fL (80.0-100.0) 01/06/24 04:50 MCH 27.7 pg (25.0-34.0) 01/06/24 04:50 MCHC 33.9 g/dL (32.0-36.0) 01/06/24 04:50 RDW Std Deviation 40.4 fL (36.4-46.3) 01/06/24 04:50 RDW Coeff of Black 13.5 % (11.5-14.5) 01/06/24 04:50 Plt Count 230 K/uL (130-400) 01/06/24 04:50 MPV 10.3 fL (9.4-12.4) 01/06/24 04:50 Immature Gran % (Auto) 0.7 % 01/06/24 04:50 Neut % (Auto) 55.5 % 01/06/24 04:50 Lymph % (Auto) 33.6 % 01/06/24 04:50 Ellis % (Auto) 7.3 % 01/06/24 04:50 Eos % (Auto) 2.3 % 01/06/24 04:50 Baso % (Auto) 0.6 % 01/06/24 04:50 Neut # (Auto) 5.06 K/uL (1.40-6.50) 01/06/24 04:50 Lymph # (Auto) 3.05 K/uL (1.20-3.40) 01/06/24 04:50 Ellis # (Auto) 0.66 K/uL (0.11-0.59) H 01/06/24 04:50 Eos # (Auto) 0.21 K/uL (0.00-0.50) 01/06/24 04:50 Baso # (Auto) 0.05 K/uL (0.00-0.20) 01/06/24 04:50 Immature Gran # (Auto) 0.06 K/uL (0.01-0.20) 01/06/24 04:50 Sodium 137 mmol/L (136-145) 01/06/24 04:50 Potassium 3.7 mmol/L (3.5-5.1) 01/06/24 04:50 Chloride 104 mmol/L (98-107) 01/06/24 04:50 Carbon Dioxide 25 mmol/L (21-32) 01/06/24 04:50 Anion Gap 8 (3-11) 01/06/24 04:50 BUN 12 mg/dl (6-23) 01/06/24 04:50 Creatinine 0.68 mg/dl (0.6-1.4) 01/06/24 04:50 Est Cr Clr Drug Dosing 254.5 ml/min 01/06/24 04:50 Est GFR ( Amer) 138.5 ml/min 01/06/24 04:50 Est GFR (Non-Af Amer) 119.5 ml/min 01/06/24 04:50 BUN/Creatinine Ratio 17.6 (10-20) 01/06/24 04:50 Glucose 150 mg/dl (70-99(Fasting)) H 01/06/24 04:50 POC Glucose 183 mg/dl (70-99) H 01/06/24 11:50 Calcium 8.3 mg/dl (8.6-10.3) L 01/06/24 04:50 Total Bilirubin 0.6 mg/dl (0.2-1.0) 01/06/24 04:50 Direct Bilirubin 0.1 mg/dl (0-0.2) 01/05/24 06:25 AST 16 U/L (13-39) 01/06/24 04:50 ALT 22 U/L (7-52) 01/06/24 04:50 Alkaline Phosphatase 59 U/L (34-104) 01/06/24 04:50 Total Protein 6.1 gm/dl (6.0-8.3) 01/06/24 04:50 Albumin 3.3 gm/dl (3.4-5.0) L 01/06/24 04:50 Globulin 2.8 gm/dl (2.5-4.0) 01/06/24 04:50 Albumin/Globulin Ratio 1.2 (0.9-2) 01/06/24 04:50 Triglycerides 191 mg/dl (0-150) H 01/06/24 04:50 Cholesterol 146 mg/dl (0-200) 01/06/24 04:50 LDL Cholesterol, Calc 80 mg/dl 01/06/24 04:50 VLDL Cholesterol, Calc 38 mg/dl (0-30) H 01/06/24 04:50 HDL Cholesterol 28 mg/dl 01/06/24 04:50 Cholesterol/HDL Ratio 5.2 (0-5) H 01/06/24 04:50 Lipase 13 U/L (11-82) 01/06/24 04:50 Impressions Abdomen/Pelvis CT 01/05/24 07:37 CT SCAN OF THE ABDOMEN AND PELVIS WITH IV CONTRAST CLINICAL HISTORY: Epigastric abdominal pain. Elevated lipase. COMPARISON STUDY: Abdominal CT dated 06/25/2022. TECHNIQUE: Following the IV administration of 112 cc of Optiray 320, CT scan of the abdomen and pelvis is performed from the lung bases to the proximal femora. Images are reviewed in the axial, sagittal, and coronal planes. IV contrast was administered without complication. A dose lowering technique was utilized adhering to the principles of ALARA. The examination is degraded by large body habitus, and by streak artifact from the body wall abutting the CT gantry. CT DOSE: 1634.04 mGy.cm FINDINGS: Lung bases: The heart is normal in size and without pericardial effusion. The lung bases are clear. There is a small hiatal hernia. Liver: The contrast-enhanced liver is enlarged, measuring 22.6 cm in length. The liver demonstrates diffusely diminished attenuation indicating steatosis. There is no intrahepatic biliary ductal dilatation. The hepatic veins and portal veins are patent. Gallbladder: Unremarkable. Spleen: The spleen is mildly enlarged measuring 14.2 cm in length. Pancreas: The pancreas is normal as visualized. The gland enhances throughout. The duct is normal in caliber. No peripancreatic fluid collection is seen. The splenic vein is patent. Adrenal glands: Unremarkable. Kidneys: The contrast enhanced kidneys are normal in size and without hydronephrosis. The kidneys enhance symmetrically. Renal sinus cysts are noted on the right. Abdominal vasculature: The abdominal aorta is normal in course and caliber. Bowel: There is mild to moderate colonic fecal retention. No bowel obstruction is seen. The appendix is not identified and reported surgically absent. An appendiceal stump is suggested on image #[id number]. Peritoneum: There is no intraperitoneal free air or abdominal ascites. There is laxity of the ventral abdominal wall with diastases of the rectus musculature and protrusion of abdominal contents. Lymphadenopathy: None. Pelvic viscera: The bladder, prostate, and seminal vesicles are normal as visualized. Skeletal structures: No lytic or blastic lesions are seen. IMPRESSION: 1. No acute infectious or inflammatory findings are identified in the abdomen or pelvis. 2. The pancreas is normal as imaged. Correlate with clinical and laboratory findings. 3. Hepatomegaly and hepatic steatosis. 4. Mild splenomegaly. 5. Additional findings as above. ACT 112: Negative or not required by law. Electronically signed by: Alvaro Ayala M.D. 01/05/2024 9:20 AM Ordered Studies 01/05/24 07:37 CT abd pelvis IV con only Stat Hospital Course (1) Acute pancreatitis: (2) Diabetes mellitus with hyperglycemia: Plan 38 year old morbidly obese male with DM-2 who presented with N/V/diarrhea and being admitted for mild acute pancreatitis Acute pancreatitis Hepatic steatosis Suspected gastritis/GERD --CT ABD:No acute infectious or inflammatory findings are identified in the abdomen or pelvis. The pancreas is normal as imaged. Correlate with clinical and laboratory findings. Hepatomegaly and hepatic steatosis. Mild splenomegaly. Lipase levels normalized IV fluids discontinued Tolerating regular diet Started on Protonix DM II with hyperglycemia Home regimen is trulicity once weekly Continue insulin while hospitalized Monitor blood glucose limits Tobacco abuse- smokes 1/2 ppd. Declines nicoderm patch Counseled to quit smoking Morbid obesity BMI 48 DVT Px: Lovenox SQ Disposition Home Total Time Total Time Spent Total Time Spent (In Minutes): 54 minutes Discharge Plan Discharge Items Patient Disposition: Home - Self-Care Reason For Visit: NAUSEA, VOMITING, EPIGASTRIC GAIN Discharge Diagnosis: Acute pancreatitis Hepatic steatosis GERD Activity: Per Instructions section Exercise/Sports: Gradually increase as tolerated Non-emergency contact: Primary Care Provider Call non-emergency contact if: you have any medication questions, your symptoms worsen, your pain is concerning for you and you have a fever Follow-up/Referrals: Elliot Benites, DO [Primary Care Provider] - (Date & Time 01/10/2024 11:00 AM Provider Bobo Haider III, MD Department [facility] ) Diet: Carb Consistent or DM2 Addtl Attending Provider Instructions: Follow-up with your primary care physician on 01/10/2024 11:00 AM --- Avoid taking ibuprofen and other pain medications [id number] which can worsen your acid reflux symptoms. Seek immediate medical attention if your symptoms reoccur or worsen Please take all medications as instructed on discharge list below. Please call if you have any questions or problems. You can reach a [facility] hospitalist on duty at [facility] 24 hours a day by calling [phone] Pending Studies at Discharge: No Stand-Alone Forms: My [facility], Smoking Cessation Medications and DC Order Prescriptions: New pantoprazole 40 mg Tablet,Delayed Release (Dr/Ec) 40 mg PO QAM Qty: 30 0RF Continued insulin glargine [Lantus Solostar U-100 Insulin] 100 unit/mL (3 mL) insulin pen 55 unit SUBCUT AMPM cyclobenzaprine 5 mg tablet 5 mg PO TID PRN (Reason: Muscle Spasm) albuterol sulfate 90 mcg/actuation Hfa Aerosol Inhaler 2 puff INHALATION Q6H PRN (Reason: Shortness Of Breath Or Wheezing) Trulicity 3 mg/0.5 mL pen injector 3 mg SUBCUT WK Rx Instructions: Discontinued ibuprofen 600 mg Tablet 600 mg PO Q6H PRN (Reason: Pain) Discharge Orders: Discharge Order (Routine); Ordered 01/06/24 Ordered By: Emmanuel Chopra Admission Data Admit Date/Time: 01/05/24 11:19 Attending Provider: Emmanuel Chopra Admit Provider: Yung Ramirez Primary Care Provider: Elliot Benites Other Providers: Yung Ramirez
--- NOTE | 2024-01-07 06:42 | Electrocardiogram Report ---
Test Reason : Blood Pressure : / mmHG Vent. Rate : 092 BPM Atrial Rate : 092 BPM P-R Int : 190 ms QRS Dur : 090 ms QT Int : 356 ms P-R-T Axes : 062 006 057 degrees QTc Int : 440 ms Normal sinus rhythm Normal ECG When compared with ECG of 14-MAR-2023 17:44, No significant change was found Confirmed by Miguel Paris ([id number]) on 01/07/2024 6:41:41 AM Referred By: Confirmed By:Miguel Paris
[2024-01-07] MEDS ORDERED: PANTOprazole 40 MG TAB PO SCH (09:00)
== END 2024-01-06 13:33 | disposition home or self-care (01) ==
LOC: ED 05:28 → EDINP 05:28 → SUATTDRO 11:19 → 2W 18:53

== ENCOUNTER 2024-12-18 22:05 | Inpatient (IN) ==
[2024-12-18 22:41] LABS: Basophils # (auto) 0.05 K/uL (0.00-0.20); Basophils % (auto) 0.7 %; Eosinophils # (auto) 0.14 K/uL (0.00-0.50); Eosinophils % (auto) 1.8 %; Hematocrit (blood only) 44.8 % (42.0-52.0); Hemoglobin 15.4 g/dl (14.0-18.0); Immature Granulocytes # (auto) 0.04 K/uL (0.01-0.20); Immature Granulocytes % (auto) 0.5 %; Lymphocytes # (auto) 2.54 K/uL (1.20-3.40); Lymphocytes % (auto) 33.4 %; Mean Corpuscular Hemoglobin 28.1 pg (25.0-34.0); Mean Corpuscular Hgb Conc 34.4 g/dL (32.0-36.0); Mean Corpuscular Volume 81.8 fL (80.0-100.0); Mean Platelet Volume 10.5 fL (9.4-12.4); Monocytes % (auto) 7.9 %; Neutrophils # (auto) 4.23 K/uL (1.40-6.50); Neutrophils % (auto) 55.7 %; Platelet Count 246 K/uL (130-400); RDW Coefficient of Variation 13.5 % (11.5-14.5); RDW Standard Deviation 39.7 fL (36.4-46.3); Red Blood Count 5.48 M/uL (4.70-6.10)
[2024-12-18 22:46] LABS: Base Excess VBG -2.9 mEq/L; HCO3 VBG 22 mmol/L; Oxygen Saturation VBG 93.1 %; PCO2 VBG 38 mmHg (38-50); PO2 VBG 64 mmHg; pH VBG 7.37 (7.36-7.41)
[2024-12-18] MEDS: SODIUM CHLORIDE 0.9% 1,000 ML IV SCH (22:46)
[2024-12-18 22:49] LABS: iSTAT Blood Urea Nitrogen 16 mg/dl (7-18); iSTAT Carbon Dioxide 21 mmol/L (24-31); iSTAT Chloride 97 mmol/L (101-112); iSTAT Creatinine 0.7 mg/dl (0.6-1.3); iSTAT Glucose > 700 mg/dl (70-99); iSTAT Hematocrit 47 % (42-52); iSTAT Potassium 4.2 mmol/L (3.3-5.0); iSTAT Sodium 130 mmol/L (135-144)
[2024-12-18 23:06] LABS: Albumin Globulin Ratio 1.3 (0.9-2); Albumin Level 3.9 gm/dl (3.4-5.0); BUN Creatinine Ratio 19.2 (10-20); Bilirubin,Total 0.3 mg/dl (0.2-1.0); Calcium 8.6 mg/dl (8.6-10.3); Creatinine Clr Calc Pharmacy 237.2 ml/min; Globulin 2.9 gm/dl (2.5-4.0); Potassium 4.2 mmol/L (3.5-5.1); Total Protein 6.8 gm/dl (6.0-8.3)
[2024-12-18] MEDS ORDERED: STAT IV Infusion **Titration per Protocol STA (23:08)
[2024-12-18 23:20] LABS: Appearance Urine Clear (Clear); Bilirubin Urine Negative (Negative); Blood Urine Negative (Negative); Color Urine Yellow; Glucose Urine UA 3+ (Negative); Ketones Urine Trace (Negative); Leukocyte Esterase Urine Negative (Negative); Nitrite Urine Negative (Negative); Protein Urine Negative (Negative); Urobilinogen Urine Negative (Negative)
[2024-12-18] MEDS ORDERED: GLUCOSE 10 TAB/TUBE PO PRN (23:30)
[2024-12-18] MEDS ORDERED: DEXTROSE 50% 50 ML SYRINGE IV PRN (23:30)
[2024-12-18] MEDS ORDERED: GLUCOSE 40% GEL 15 GM TUBE PO PRN (23:30)
[2024-12-18] MEDS ORDERED: CARBOHYDRATES FOR HYPOGLYCEMIA PO PRN (23:30)
[2024-12-18] MEDS ORDERED: GLUCAGON FOR INJ 1 MG VIAL SQ PRN (23:30)
--- NOTE | 2024-12-18 23:33 | Emergency Department Note ---
History of Present Illness General Chief complaint: Hyperglycemia Stated complaint: high blood sugar Time Seen by Provider: 12/18/24 22:35 History of Present Illness This is a 39-year-old male presenting to the emergency department for evaluation of elevated blood sugar. The patient has a known history of diabetes. He has had difficulty with insurance and getting his insulin recently. He states that he has Lantus at night as well as fast acting insulin. Patient has not had fevers or chills. No chest pain, chest tightness, shortness of breath. He is excessively thirsty and has significant increase in urination. He tried to check his blood sugar at home, however his sugar was greater than 600, prompting him to come to the ER. Home Medications Medication Instructions Recorded Confirmed Type cyclobenzaprine 5 mg tablet 5 mg PO TID PRN Muscle Spasm 11/06/20 12/19/24 History dulaglutide 3 mg/0.5 mL 3 mg subcut WK 12/01/23 12/19/24 History subcutaneous pen injector (Trulicity) insulin glargine 100 unit/mL (3 50 unit subcut BID 03/13/24 12/19/24 History mL) subcutaneous pen (Lantus Solostar U-100 Insulin) albuterol sulfate 90 mcg/actuation 2 puff inhalation DIRECTED PRN 12/19/24 12/19/24 History aerosol inhaler Shortness Of Breath Or Wheezing Allergies Allergy/AdvReac Type Severity Reaction Status Date / Time aspirin Allergy Unknown CAN'T Verified 12/19/24 00:02 REMEMBER Cephalosporins Allergy Unknown CAN'T Verified 12/19/24 00:02 REMEMBER--HAS TOLERATED CEFTRIAXONE Penicillins Allergy Unknown CHILDHOOD Verified 12/19/24 00:02 ALLERGY Sulfa (Sulfonamide Allergy Unknown CAN'T Verified 12/19/24 00:02 Antibiotics) REMEMBER sulfamethoxazole Allergy Unknown CAN'T Verified 12/19/24 00:02 REMEMBER trimethoprim Allergy Unknown CAN'T Verified 12/19/24 00:02 REMEMBER ioversol AdvReac Severe Severe PRAFUL Verified 12/19/24 00:02 ketorolac AdvReac Severe Severe PRAFUL Verified 12/19/24 00:02 hydromorphone [From Dilaudid] AdvReac Intermediate Nausea Verified 12/19/24 00:02 lisinopril AdvReac Intermediate gi upset Verified 12/19/24 00:02 as per px Past Med/Surg History Problem List Nausea & vomiting (Acute) Abdominal pain (Acute) Diabetes mellitus with hyperglycemia (Acute) Acute pancreatitis (Acute) Surgical wound, non healing (Acute) COVID-19 (Acute) Neck infection Adverse reaction to anesthetic agent "8 years ago" per new pt form MSSA (methicillin susceptible Staphylococcus aureus) infection Chronic abdominal wound infection Hyperglycemia (Acute) Dehydration (Acute) Dizziness (Acute) Chest pain, precordial (Acute) Hyperglycemic crisis in diabetes mellitus (Acute) Foreign body Skin ulcer (Acute) MRSA (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 (Acute) Discharge planning issues (Acute) DVT prophylaxis (Acute) Diabetes mellitus with hyperosmolarity without hyperglycemic hyperosmolar nonketotic coma (Acute) Asthma, exercise induced (Chronic) Chest pain (Acute) S/P appendectomy (Chronic) Medical History DVT prophylaxis DKA (diabetic ketoacidoses) Adrenal insufficiency Elevated troponin Parotitis Oliguria Acute renal failure Hypotension Admitted to intensive care unit Fever Leukocytosis Tachycardia Sepsis Seasonal allergies Strep pharyngitis Abscess, peritonsillar Peritonsillar abscess determined by examination Acute streptococcal tonsillitis Uncontrolled diabetes mellitus Morbid obesity ADD (attention deficit disorder) Tobacco use disorder Diabetes mellitus, type II Bipolar I disorder Depression Surgical History History of surgery on wrist History of tonsillectomy Family History Mother Hypertension Father Coronary heart disease Diabetes Brother Diabetes Other Allergies Asthma Cancer Hearing loss Heart disease No family history of adverse response to anesthesia No family history of bleeding disorder Social History Smoking Status: Current every day smoker Tobacco Type: Cigarettes Cigarettes Per Day: 1/2 pack; Second Hand Exposure: No; Do You Dip or Chew Tobacco: No; Hx Alcohol Use: No Hx Substance Use: No Preferred Language: Guamanian Communication Ability: Effective Communication Ability Comment: . 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 Feels Safe at Home: Yes Diet: regular caffeine: Yes during the past year weight has: remained stable Do you think of yourself as: straight/heterosexual Assistive Devices: None Review of Systems A total of 10 systems reviewed and were otherwise negative Physical Exam Vital Signs Vital Signs - 24 hr 12/18/24 22:07 12/18/24 22:34 12/18/24 22:48 Temperature 36.9 C Temperature Source Temporal Artery Scan Pulse Rate 96 H 93 H 96 H Pulse Rate [Apical] Pulse Rate from SpO2 Sensor 93 H Respiratory Rate 20 15 Respiratory Effort / Characteristics Non-Labored Spontaneous Respiratory Depth Normal Blood Pressure 176/92 H 147/80 H Blood Pressure [Left Arm] Blood Pressure Mean 120 102 Blood Pressure Mean [Left Arm] Blood Pressure Position [Left Arm] Pulse Oximetry 95 94 Oxygen Delivery Method Room Air Sepsis Recent Fever Within 48 Hours No Sepsis New/Unexplained Change in Mental Status No Sepsis Action Taken by Nursing No Action Required 12/18/24 23:21 12/19/24 00:00 12/19/24 00:39 Temperature Temperature Source Pulse Rate 88 95 H 93 H Pulse Rate [Apical] Pulse Rate from SpO2 Sensor 88 93 H 92 H Respiratory Rate 23 13 24 Respiratory Effort / Characteristics Respiratory Depth Blood Pressure 151/86 H 143/89 H 123/92 Blood Pressure [Left Arm] Blood Pressure Mean 107 107 107 Blood Pressure Mean [Left Arm] Blood Pressure Position [Left Arm] Pulse Oximetry 96 95 95 Oxygen Delivery Method Sepsis Recent Fever Within 48 Hours Sepsis New/Unexplained Change in Mental Status Sepsis Action Taken by Nursing 12/19/24 01:20 12/19/24 01:31 12/19/24 02:20 Temperature Temperature Source Pulse Rate 83 Pulse Rate [Apical] 84 83 Pulse Rate from SpO2 Sensor Respiratory Rate 20 18 Respiratory Effort / Characteristics Respiratory Depth Blood Pressure Blood Pressure [Left Arm] 131/69 135/73 Blood Pressure Mean Blood Pressure Mean [Left Arm] 89 93 Blood Pressure Position [Left Arm] Right Lateral Pulse Oximetry 94 94 Oxygen Delivery Method Room Air Room Air Sepsis Recent Fever Within 48 Hours Sepsis New/Unexplained Change in Mental Status Sepsis Action Taken by Nursing VITALS: Vitals are noted on the nurse's note and reviewed by myself. Vital signs stable. GENERAL: Well-developed, well-nourished, white male, who is in no acute distress and resting comfortably. Patient is cooperative with the examination. HEAD: Normocephalic atraumatic. EARS: External ear normal. External auditory canals clear, tympanic membranes pearly coker without erythema or effusion bilaterally. EYES: Pupils equal round and reactive to light and accommodation. Conjunctivae without injection, sclerae without icterus. Extraocular movements intact. NOSE: Patent, turbinates without inflammation or discharge. MOUTH: Mucous membranes dry NECK: Supple without nuchal rigidity. No lymphadenopathy. No thyromegaly. Cervical spine is nontender. HEART: Regular rate and rhythm without murmurs gallops or rubs. LUNGS: Clear to auscultation bilaterally without wheezes, rales or rhonchi. No retractions or accessory muscle use. ABDOMEN: Positive normal bowel sounds x 4. Soft, nontender, without masses or organomegaly. No guarding or rebound tenderness. MUSCULOSKELETAL: No muscle atrophy, erythema, or edema noted. Full range of motion in all extremities. Course Administered Medications Acetaminophen (Acetaminophen 325 Mg Tab) 650 mg PO Q4H PRN PRN Reason: Pain or Fever Stop: 01/18/25 03:58 Last Admin: 12/19/24 15:38 Dose: 650 mg Documented By: Admin: 12/19/24 10:30 Dose: 650 mg Documented By: ADRIANA Doxycycline Hyclate (Doxycycline Hyclate 100 Mg Cap) 100 mg PO BID DIANE Stop: 12/26/24 09:14 Last Admin: 12/19/24 09:44 Dose: 100 mg Documented By: ADRIANA Enoxaparin Sodium (Enoxaparin Inj 40 Mg/0.4 Ml Syr) 40 mg SQ Q12H DIANE Stop: 01/18/25 05:59 Last Admin: 12/19/24 18:07 Dose: 40 mg Documented By: [facility] Admin: 12/19/24 08:11 Dose: 40 mg Documented By: ADRIANA Insulin Aspart (Insulin Aspart Per Unit Charge) 0 units SC ACHS DIANE Stop: 01/18/25 16:29 Last Admin: 12/19/24 18:02 Dose: 16 units Documented By: [facility] Co-signed By: [place] Discontinued Medications Al Hydrox/Mg Hydrox/Simethicone (Aluminum/Magnesium Susp 30 Ml Udc) 30 ml PO NOW STA Stop: 12/19/24 00:51 Last Admin: 12/19/24 01:11 Dose: 30 ml Documented By: LILLY Sodium Chloride (Nss) 1,000 mls @ 999 mls/hr IV .Q1H1M DIANE Stop: 12/19/24 00:45 Last Infusion: 12/19/24 01:40 Dose: Infused Documented By: Admin: 12/18/24 23:56 Dose: 999 mls/hr Documented By: Infusion: 12/18/24 23:47 Dose: Infused Documented By: Admin: 12/18/24 22:46 Dose: 999 mls/hr Documented By: LILLY Insulin Human Regular 250 (units/ Sodium Chloride) 250 mls @ 5.5 mls/hr IV .Q24H DIANE; Protocol Stop: 12/19/24 16:30 Last Titration: 12/19/24 14:37 Dose: Infused Documented By: SHAKIRA Co-signed By: [place] Titration: 12/19/24 14:30 Dose: 5.5 units/hr, 5.5 mls/hr Documented By: SHAKIRA Co-signed By: CAT Titration: 12/19/24 14:11 Dose: 5.5 units/hr, 5.5 mls/hr Documented By: SHAKIRA Co-signed By: CAT Titration: 12/19/24 13:32 Dose: 0 units/hr, 0 mls/hr Documented By: SHAKIRA Co-signed By: CAT Titration: 12/19/24 12:46 Dose: 9.2 units/hr, 9.2 mls/hr Documented By: JOHN Co-signed By: LCD Titration: 12/19/24 11:31 Dose: 7.7 units/hr, 7.7 mls/hr Documented By: MALLIKAN Co-signed By: VME Titration: 12/19/24 07:50 Dose: 7.7 units/hr, 7.7 mls/hr Documented By: ADRIANA Co-signed By: SRL Titration: 12/19/24 05:48 Dose: 7.7 units/hr, 7.7 mls/hr Documented By: PRASANNA Co-signed By: LAZARA Titration: 12/19/24 04:48 Dose: 7.7 units/hr, 7.7 mls/hr Documented By: PRASANNA Co-signed By: LAZARA Titration: 12/19/24 03:47 Dose: 9.6 units/hr, 9.6 mls/hr Documented By: PRASANNA Co-signed By: LAZARA Titration: 12/19/24 02:52 Dose: 12 units/hr, 12 mls/hr Documented By: TUSHAR Co-signed By: ROBERTA Titration: 12/19/24 01:54 Dose: 12 units/hr, 12 mls/hr Documented By: TUSHAR Co-signed By: ROBERTA Admin: 12/18/24 23:46 Dose: 10 units/hr, 10 mls/hr Documented By: LILLY Co-signed By: GARCÍA Potassium Chloride (K Byron / Wtr) 10 meq in 100 mls @ 100 mls/hr IV Q1H DIANE Stop: 12/19/24 01:29 Last Infusion: 12/19/24 02:13 Dose: Infused Documented By: Admin: 12/19/24 01:10 Dose: 100 mls/hr Documented By: Infusion: 12/19/24 00:46 Dose: Infused Documented By: Admin: 12/18/24 23:46 Dose: 100 mls/hr Documented By: LILLY Sodium Chloride (Nss) 1,000 mls @ 125 mls/hr IV .Q8H DIANE Stop: 12/19/24 19:58 Last Infusion: 12/19/24 10:29 Dose: Infused Documented By: Admin: 12/19/24 04:26 Dose: 125 mls/hr Documented By: PRASANNA Ceftriaxone Sodium (Rocephin) 2,000 mg in 50 mls @ 100 mls/hr IV NOW STA Stop: 12/19/24 04:33 Last Infusion: 12/19/24 04:55 Dose: Infused Documented By: Admin: 12/19/24 04:25 Dose: 100 mls/hr Documented By: PRASANNA Potassium Chloride (K Byron / Wtr) 10 meq in 100 mls @ 100 mls/hr IV Q1H DIANE Stop: 12/19/24 10:14 Last Infusion: 12/19/24 11:30 Dose: Infused Documented By: Admin: 12/19/24 10:24 Dose: 100 mls/hr Documented By: Infusion: 12/19/24 09:44 Dose: Infused Documented By: Admin: 12/19/24 08:44 Dose: 100 mls/hr Documented By: RULA Potassium Chloride 20 meq/ (Sodium Chloride) 1,010 mls @ 125 mls/hr IV .Q8H5M DIANE Stop: 12/19/24 19:58 Last Admin: 12/19/24 18:07 Dose: 125 mls/hr Documented By: Infusion: 12/19/24 17:56 Dose: Infused Documented By: Admin: 12/19/24 09:47 Dose: 125 mls/hr Documented By: ADRIANA Insulin Aspart (Insulin Aspart Per Unit Charge) 0 units SC ACHS DIANE Stop: 12/19/24 16:29 Last Admin: 12/19/24 12:19 Dose: 10 units Documented By: JOHN Co-signed By: JUNIOR Admin: 12/19/24 08:10 Dose: 8 units Documented By: ADRIANA Co-signed By: LYNN Insulin Glargine (Lantus Per Unit Charge) 50 units SC NOW STA Stop: 12/19/24 04:15 Last Admin: 12/19/24 04:26 Dose: 50 units Documented By: PRASANNA Co-signed By: TUSHAR Insulin Glargine (Lantus Per Unit Charge) 15 units SC NOW STA Stop: 12/19/24 11:45 Last Admin: 12/19/24 12:19 Dose: 15 units Documented By: JOHN Co-signed By: JUNIOR Insulin Human Regular (Novolin-R Bolus From Bag) 10 units IV ONE ONE Stop: 12/18/24 23:31 Last Admin: 12/18/24 23:47 Dose: 10 units Documented By: LILLY Co-signed By: GARCÍA Miscellaneous ([facility] Goal Range 250-350 Mg/Dl) 1 each N/A ONE ONE Stop: 12/18/24 23:09 Last Admin: 12/19/24 01:42 Dose: Not Given Documented By: TUSHAR Potassium Chloride (Potassium Chloride Crtab 20 Meq Tabcr) 40 meq PO NOW STA Stop: 12/19/24 08:03 Last Admin: 12/19/24 08:46 Dose: 40 meq Documented By: RULA Critical Care Time I have personally spent greater than 30 minutes of critical care time in the direct management of this patient. This includes bedside care, interpretation of diagnostic studies, and testing, discussion with consultants, patient, and family members, and other required patient management activities. This 30 minutes is in excess of all separately billable procedures. Medical Decision Making Differential Diagnosis Differential diagnosis: Etiologies such as DKA, HHNK, vasovagal event, infection, anemia, hypoglycemia, hypovolemia, electrolyte abnormalities, dysrhythmias, cardiac ischemia, cardiac tamponade, valvular heart disease, structural heart disease, seizure, vascular stenosis/dissection, pulmonary embolism, intracerebral event, toxicological process, neurologic event, as well as others were entertained. Laboratory Data 12/19/24 06:52 12/19/24 19:35 Lab Results 12/18/24 12/18/24 12/18/24 Range/Units 22:10 22:29 22:34 WBC 7.60 (4.8-10.8) K/ul RBC 5.48 (4.70-6.10) M/uL Hgb 15.4 (14.0-18.0) g/dl POC Hgb 16.0 (14.0-18.0) g/dl Hct 44.8 (42.0-52.0) % POC Hct 47 (42-52) % MCV 81.8 (80.0-100.0) fL MCH 28.1 (25.0-34.0) pg MCHC 34.4 (32.0-36.0) g/dL RDW Std Deviation 39.7 (36.4-46.3) fL RDW Coeff of Black 13.5 (11.5-14.5) % Plt Count 246 (130-400) K/uL MPV 10.5 (9.4-12.4) fL Immature Gran % (Auto) 0.5 % Neut % (Auto) 55.7 % Lymph % (Auto) 33.4 % [place] % (Auto) 7.9 % Eos % (Auto) 1.8 % Baso % (Auto) 0.7 % Neut # (Auto) 4.23 (1.40-6.50) K/uL Lymph # (Auto) 2.54 (1.20-3.40) K/uL [place] # (Auto) 0.60 H (0.11-0.59) K/uL Eos # (Auto) 0.14 (0.00-0.50) K/uL Baso # (Auto) 0.05 (0.00-0.20) K/uL Immature Gran # (Auto) 0.04 (0.01-0.20) K/uL PT Cancelled INR Cancelled APTT Cancelled PTT Ratio Cancelled VBG pH (7.36-7.41) VBG pCO2 (38-50) mmHg VBG pO2 mmHg VBG HCO3 mmol/L VBG O2 Saturation % VBG Base Excess mEq/L POC Sodium 130 L (135-144) mmol/L Sodium 127 L (136-145) mmol/L POC Potassium 4.2 (3.3-5.0) mmol/L Potassium 4.2 (3.5-5.1) mmol/L POC Chloride 97 L (101-112) mmol/L Chloride 95 L (98-107) mmol/L Carbon Dioxide 22 (21-32) mmol/L POC Total CO2 21 L (24-31) mmol/L Anion Gap 10 (3-11) POC Anion Gap 17.0 (16-25) mmol/L POC BUN 16 (7-18) mg/dl BUN 15 (6-23) mg/dl Creatinine 0.78 (0.6-1.4) mg/dl POC Creatinine 0.7 (0.6-1.3) mg/dl Est Cr Clr Drug Dosing 237.2 ml/min eGFR 114.90 BUN/Creatinine Ratio 19.2 (10-20) Glucose 731 H* (70-99(Fasting)) mg/dl POC Glucose > 600 H* (70-99) mg/dl POC Glucose (other) > 700 H* (70-99) mg/dl Calcium 8.6 (8.6-10.3) mg/dl POC Ioniz Calcium Chaka 1.10 L (1.12-1.32) mmol/l Total Bilirubin 0.3 (0.2-1.0) mg/dl AST 12 L (13-39) U/L ALT 25 (7-52) U/L Alkaline Phosphatase 93 (34-104) U/L Total Protein 6.8 (6.0-8.3) gm/dl Albumin 3.9 (3.4-5.0) gm/dl Globulin 2.9 (2.5-4.0) gm/dl Albumin/Globulin Ratio 1.3 (0.9-2) Urine Color Urine Appearance (Clear) Urine pH (4.5-7.5) Ur Specific [place] (1.000-1.030) Urine Protein (Negative) Urine Glucose (UA) (Negative) Urine Ketones (Negative) Urine Blood (Negative) Urine Nitrite (Negative) Urine Bilirubin (Negative) Urine Urobilinogen (Negative) Ur Leukocyte Esterase (Negative) SARS-CoV-2 (PCR) (Negative) Influenza Type A (PCR) (Neg) Influenza Type B (PCR) (Neg) RSV (RT-PCR) (Neg) 12/18/24 12/18/24 12/18/24 Range/Units 22:41 23:01 23:45 WBC (4.8-10.8) K/ul RBC (4.70-6.10) M/uL Hgb (14.0-18.0) g/dl POC Hgb (14.0-18.0) g/dl Hct (42.0-52.0) % POC Hct (42-52) % MCV (80.0-100.0) fL MCH (25.0-34.0) pg MCHC (32.0-36.0) g/dL RDW Std Deviation (36.4-46.3) fL RDW Coeff of Black (11.5-14.5) % Plt Count (130-400) K/uL MPV (9.4-12.4) fL Immature Gran % (Auto) % Neut % (Auto) % Lymph % (Auto) % [place] % (Auto) % Eos % (Auto) % Baso % (Auto) % Neut # (Auto) (1.40-6.50) K/uL Lymph # (Auto) (1.20-3.40) K/uL [place] # (Auto) (0.11-0.59) K/uL Eos # (Auto) (0.00-0.50) K/uL Baso # (Auto) (0.00-0.20) K/uL Immature Gran # (Auto) (0.01-0.20) K/uL PT INR APTT PTT Ratio VBG pH 7.37 (7.36-7.41) VBG pCO2 38 (38-50) mmHg VBG pO2 64 mmHg VBG HCO3 22 mmol/L VBG O2 Saturation 93.1 % VBG Base Excess -2.9 mEq/L POC Sodium (135-144) mmol/L Sodium (136-145) mmol/L POC Potassium (3.3-5.0) mmol/L Potassium (3.5-5.1) mmol/L POC Chloride (101-112) mmol/L Chloride (98-107) mmol/L Carbon Dioxide (21-32) mmol/L POC Total CO2 (24-31) mmol/L Anion Gap (3-11) POC Anion Gap (16-25) mmol/L POC BUN (7-18) mg/dl BUN (6-23) mg/dl Creatinine (0.6-1.4) mg/dl POC Creatinine (0.6-1.3) mg/dl Est Cr Clr Drug Dosing ml/min eGFR BUN/Creatinine Ratio (10-20) Glucose (70-99(Fasting)) mg/dl POC Glucose > 600 H* (70-99) mg/dl POC Glucose (other) (70-99) mg/dl Calcium (8.6-10.3) mg/dl POC Ioniz Calcium Chaka (1.12-1.32) mmol/l Total Bilirubin (0.2-1.0) mg/dl AST (13-39) U/L ALT (7-52) U/L Alkaline Phosphatase (34-104) U/L Total Protein (6.0-8.3) gm/dl Albumin (3.4-5.0) gm/dl Globulin (2.5-4.0) gm/dl Albumin/Globulin Ratio (0.9-2) Urine Color Yellow Urine Appearance Clear (Clear) Urine pH 6.0 (4.5-7.5) Ur Specific [place] 1.030 (1.000-1.030) Urine Protein Negative (Negative) Urine Glucose (UA) 3+ H (Negative) Urine Ketones Trace H (Negative) Urine Blood Negative (Negative) Urine Nitrite Negative (Negative) Urine Bilirubin Negative (Negative) Urine Urobilinogen Negative (Negative) Ur Leukocyte Esterase Negative (Negative) SARS-CoV-2 (PCR) NEGATIVE (Negative) Influenza Type A (PCR) Negative (Neg) Influenza Type B (PCR) Negative (Neg) RSV (RT-PCR) Negative (Neg) 12/18/24 12/19/24 12/19/24 Range/Units 23:53 00:43 01:50 WBC (4.8-10.8) K/ul RBC (4.70-6.10) M/uL Hgb (14.0-18.0) g/dl POC Hgb (14.0-18.0) g/dl Hct (42.0-52.0) % POC Hct (42-52) % MCV (80.0-100.0) fL MCH (25.0-34.0) pg MCHC (32.0-36.0) g/dL RDW Std Deviation (36.4-46.3) fL RDW Coeff of Black (11.5-14.5) % Plt Count (130-400) K/uL MPV (9.4-12.4) fL Immature Gran % (Auto) % Neut % (Auto) % Lymph % (Auto) % [place] % (Auto) % Eos % (Auto) % Baso % (Auto) % Neut # (Auto) (1.40-6.50) K/uL Lymph # (Auto) (1.20-3.40) K/uL [place] # (Auto) (0.11-0.59) K/uL Eos # (Auto) (0.00-0.50) K/uL Baso # (Auto) (0.00-0.20) K/uL Immature Gran # (Auto) (0.01-0.20) K/uL PT 9.3 INR 0.8 L APTT 24 PTT Ratio 0.9 VBG pH (7.36-7.41) VBG pCO2 (38-50) mmHg VBG pO2 mmHg VBG HCO3 mmol/L VBG O2 Saturation % VBG Base Excess mEq/L POC Sodium (135-144) mmol/L Sodium (136-145) mmol/L POC Potassium (3.3-5.0) mmol/L Potassium (3.5-5.1) mmol/L POC Chloride (101-112) mmol/L Chloride (98-107) mmol/L Carbon Dioxide (21-32) mmol/L POC Total CO2 (24-31) mmol/L Anion Gap (3-11) POC Anion Gap (16-25) mmol/L POC BUN (7-18) mg/dl BUN (6-23) mg/dl Creatinine (0.6-1.4) mg/dl POC Creatinine (0.6-1.3) mg/dl Est Cr Clr Drug Dosing ml/min eGFR BUN/Creatinine Ratio (10-20) Glucose (70-99(Fasting)) mg/dl POC Glucose 432 H* 438 H* (70-99) mg/dl POC Glucose (other) (70-99) mg/dl Calcium (8.6-10.3) mg/dl POC Ioniz Calcium Chaka (1.12-1.32) mmol/l Total Bilirubin (0.2-1.0) mg/dl AST (13-39) U/L ALT (7-52) U/L Alkaline Phosphatase (34-104) U/L Total Protein (6.0-8.3) gm/dl Albumin (3.4-5.0) gm/dl Globulin (2.5-4.0) gm/dl Albumin/Globulin Ratio (0.9-2) Urine Color Urine Appearance (Clear) Urine pH (4.5-7.5) Ur Specific [place] (1.000-1.030) Urine Protein (Negative) Urine Glucose (UA) (Negative) Urine Ketones (Negative) Urine Blood (Negative) Urine Nitrite (Negative) Urine Bilirubin (Negative) Urine Urobilinogen (Negative) Ur Leukocyte Esterase (Negative) SARS-CoV-2 (PCR) (Negative) Influenza Type A (PCR) (Neg) Influenza Type B (PCR) (Neg) RSV (RT-PCR) (Neg) 12/19/24 Range/Units 02:49 WBC (4.8-10.8) K/ul RBC (4.70-6.10) M/uL Hgb (14.0-18.0) g/dl POC Hgb (14.0-18.0) g/dl Hct (42.0-52.0) % POC Hct (42-52) % MCV (80.0-100.0) fL MCH (25.0-34.0) pg MCHC (32.0-36.0) g/dL RDW Std Deviation (36.4-46.3) fL RDW Coeff of Black (11.5-14.5) % Plt Count (130-400) K/uL MPV (9.4-12.4) fL Immature Gran % (Auto) % Neut % (Auto) % Lymph % (Auto) % [place] % (Auto) % Eos % (Auto) % Baso % (Auto) % Neut # (Auto) (1.40-6.50) K/uL Lymph # (Auto) (1.20-3.40) K/uL [place] # (Auto) (0.11-0.59) K/uL Eos # (Auto) (0.00-0.50) K/uL Baso # (Auto) (0.00-0.20) K/uL Immature Gran # (Auto) (0.01-0.20) K/uL PT INR APTT PTT Ratio VBG pH (7.36-7.41) VBG pCO2 (38-50) mmHg VBG pO2 mmHg VBG HCO3 mmol/L VBG O2 Saturation % VBG Base Excess mEq/L POC Sodium (135-144) mmol/L Sodium (136-145) mmol/L POC Potassium (3.3-5.0) mmol/L Potassium (3.5-5.1) mmol/L POC Chloride (101-112) mmol/L Chloride (98-107) mmol/L Carbon Dioxide (21-32) mmol/L POC Total CO2 (24-31) mmol/L Anion Gap (3-11) POC Anion Gap (16-25) mmol/L POC BUN (7-18) mg/dl BUN (6-23) mg/dl Creatinine (0.6-1.4) mg/dl POC Creatinine (0.6-1.3) mg/dl Est Cr Clr Drug Dosing ml/min eGFR BUN/Creatinine Ratio (10-20) Glucose (70-99(Fasting)) mg/dl POC Glucose 361 H* (70-99) mg/dl POC Glucose (other) (70-99) mg/dl Calcium (8.6-10.3) mg/dl POC Ioniz Calcium Chaka (1.12-1.32) mmol/l Total Bilirubin (0.2-1.0) mg/dl AST (13-39) U/L ALT (7-52) U/L Alkaline Phosphatase (34-104) U/L Total Protein (6.0-8.3) gm/dl Albumin (3.4-5.0) gm/dl Globulin (2.5-4.0) gm/dl Albumin/Globulin Ratio (0.9-2) Urine Color Urine Appearance (Clear) Urine pH (4.5-7.5) Ur Specific [place] (1.000-1.030) Urine Protein (Negative) Urine Glucose (UA) (Negative) Urine Ketones (Negative) Urine Blood (Negative) Urine Nitrite (Negative) Urine Bilirubin (Negative) Urine Urobilinogen (Negative) Ur Leukocyte Esterase (Negative) SARS-CoV-2 (PCR) (Negative) Influenza Type A (PCR) (Neg) Influenza Type B (PCR) (Neg) RSV (RT-PCR) (Neg) MDM Narrative Physical exam and history were performed. Nursing notes, EMR, and Medication List were personally reviewed. No social concerns were identified as barriers to patients care. History was provided by the Patient. Patient appears to have elevated blood sugar at home. Fingerstick was performed in triage and is greater than 600. IV access was established and labs were obtained. VBG performed. Patient was hydrated 2 L normal saline. Case discussed with my attending. Patient's blood work is as above and was reviewed. He does not have a significantly elevated white blood cell count or gross anemia. Transaminases are not diagnostic. Lab glucose is greater than 700. VBG does not show significant acidosis. Urine is with glucose and ketones, which was expected. Escalation of care was considered, and felt to be necessary. The patient is diabetic with significant medical history. Due to the elevated blood sugar he was started on an insulin drip and given IV potassium. Case was discussed with the on-call [facility] hospitalist who agreed to evaluate the patient here in the ER. Please see their dictation for further patient course, plan, disposition. The chart was completed utilizing [employer] Voice Recognition Software. Grammatical errors, random word insertions, pronoun errors, and incomplete sentences are an occasional consequence of this system due to software limitations, ambient noise, and hardware issues. Any formal questions or concerns about the content, text, or information contained within the body of this dictation should be directly addressed to the provider for clarification. Impression & Plan Diabetes mellitus with hyperglycemia, Hyperglycemic crisis in diabetes mellitus Discharge Plan Visit Data Chief Complaint: Hyperglycemia Stated Complaint: high blood sugar ED Provider: Jeff Zarate ED Midlevel Provider: Dinesh Bertrand Discharge Problem: Diabetes mellitus with hyperglycemia, Hyperglycemic crisis in diabetes mellitus Patient Disposition: Admitted As Inpatient Discharge Instructions Interventions: ED Discharge Assessment Last Done: 12/19/24 04:00
[2024-12-18 23:36] LABS: Influenza A virus by PCR Negative (Neg); Influenza B virus by PCR Negative (Neg); RSV by PCR Negative (Neg); SARS CoV2 RNA(COVID-19) Ceph NEGATIVE (Negative)
[2024-12-18] MEDS: POTASSIUM CHLORIDE / WTR 10 MEQ/100 ML PLCT IV SCH (23:46)
[2024-12-18] MEDS: INSULIN REGULAR 250 UNITS in SODIUM CHLORIDE 0.9% 247.5 ML IV SCH (23:46)
[2024-12-18] MEDS: NovoLIN-R BOLUS FROM BAG IV ONE (23:47)
[2024-12-19 00:53] LABS: INR 0.8 (0.9-1.1); Partial Thromboplastin Ratio 0.9; Partial Thromboplastin Time 24 Seconds (21-31); Prothrombin Time 9.3 Seconds (9.0-12.0)
[2024-12-19] MEDS: ALUMINUM/MAGNESIUM SUSP 30 ML UDC PO STA (01:11)
[2024-12-19] MEDS: HHS GOAL RANGE 250-350 mg/dl ONE (01:42)
--- NOTE | 2024-12-19 01:57 | XRay Report ---
Exam(s): XR CXR 1 VIEW EXAM: XR Chest, 1 View CLINICAL HISTORY: Reason for exam: hyperglycemia. TECHNIQUE: Frontal view of the chest. COMPARISON: Prior chest x-ray from August 21, 2024. FINDINGS: Lungs: Mild to moderate peribronchial thickening of the central and lower lobe bronchi with increased interstitial opacities in the lower lobes. No consolidation. Pleural space: Unremarkable. No pneumothorax. Heart: Unremarkable. No cardiomegaly. Mediastinum: Unremarkable. Normal mediastinal contour. Bones/joints: Unremarkable. No acute fracture. IMPRESSION: Bronchitis, which may be of infectious or inflammatory etiologies. No consolidation or pleural effusion. Electronically signed by: Khloe Yost MD 12/19/24 01:55 AM
--- NOTE | 2024-12-19 03:38 | History & Physical Report ---
Date of Service December 19, 2024 Assessment & Plan (1) Diabetes mellitus with hyperglycemia: Plan: 39-year-old male with past medical history significant for type 2 diabetes, diabetic polyneuropathy, diabetic peripheral angiopathy, hypertension, morbid obesity, bipolar 1 disorder, tobacco use disorder, depression, family history of ischemic heart disease presents with hyperglycemia. Sugars were running high at home and in the ER sugars were greater than 700 and ER started on insulin drip. Patient recently lost his insurance. Currently is on Lantus 55 units twice daily and Trulicity once a week per patient. Says he took his last remaining dose of Lantus tonight and took last trulicity last Tuesday. He is trying to get 70/30 as per the [facility] notes. Sugars are running high on his current home regimen of Lantus and trulicity. Sometimes has blurred visions. Has mild headache. No runny nose or sore throat. Has smoker's cough. No fevers. Earlier had some chest tightness but that resolved now. No shortness of breath. Mouth is dry. No nausea. No abdominal pain. Micturating a lot. After eating passes a lot of gas.Patient complaining of back pain. Patient also in Er when laying in the bed was feeling SOB.. At home he is sleeping okay. Currently resting comfortably and hemodynamically stable. Diabetes mellitus with hyperglycemia At home on Lantus 50 units twice daily and Trulicity weekly At home sugars were running high ER sugars >700 vbg ok ER started on insulin drip which will be continued Close monitor blood sugars and labs. Monitor Potassium while on insulin drip Glycemic pharmacy consult Social service to help with his insulin as the patient lost his insurance. Hyponatremia Na 127. Mostly pseudohyponatremia from hyperglycemia will follow labs. Morbid obesity Needs counseling Nutrition follow-up Orthopnea versus sleep apnea Will follow echo Sleep study as outpatient Nocturnal pulse ox study while patient is in the hospital Abdominal wound With previous surgical incision site Will follow wound cultures Empiric Rocephin for now Wound care Needs follow-up Hypertension Not on meds Will monitor Back pain To consider CAT scan of the back PT OT when stable Tobacco abuse Needs counseling DVT prophylaxis Lovenox Disposition Med/telemetry History of Present Illness Chief Complaint: Hyperglycemia Primary Care Provider: Elliot Benites DO 39-year-old male with past medical history significant for type 2 diabetes, diabetic polyneuropathy, diabetic peripheral angiopathy, hypertension, morbid obesity, bipolar 1 disorder, tobacco use disorder, depression, family history of ischemic heart disease presents with hyperglycemia. Sugars were running high at home and in the ER sugars were greater than 700 and ER started on insulin drip. Patient recently lost his insurance. Currently is on Lantus 55 units twice daily and Trulicity once a week per patient. Says he took his last remaining dose of Lantus tonight and took last trulicity last Tuesday. He is trying to get 70/30 as per the [facility] notes. Sugars are running high on his current home regimen of Lantus and trulicity. Sometimes has blurred visions. Has mild headache. No runny nose or sore throat. Has smoker's cough. No fevers. Earlier had some chest tightness but that resolved now. No shortness of breath. Mouth is dry. No nausea. No abdominal pain. Micturating a lot. After eating passes a lot of gas.Patient complaining of back pain. Patient also in Er when laying in the bed was feeling SOB.. At home he is sleeping okay. Currently resting comfortably and hemodynamically stable. Past medical history. As mentioned above Past surgical history. Reconstructed right wrist. Laparoscopic appendectomy. Social history. Smokes of packs units daily. No vaping. Alcohol rarely. No drug use. Family history. Brother has diabetes. Father had diabetes. Heart disorder. Mother has hypertension. Allergies Allergy/AdvReac Type Severity Reaction Status Date / Time aspirin Allergy Unknown CAN'T Verified 12/19/24 00:02 REMEMBER Cephalosporins Allergy Unknown CAN'T Verified 12/19/24 00:02 REMEMBER--HAS TOLERATED CEFTRIAXONE Penicillins Allergy Unknown CHILDHOOD Verified 12/19/24 00:02 ALLERGY Sulfa (Sulfonamide Allergy Unknown CAN'T Verified 12/19/24 00:02 Antibiotics) REMEMBER sulfamethoxazole Allergy Unknown CAN'T Verified 12/19/24 00:02 REMEMBER trimethoprim Allergy Unknown CAN'T Verified 12/19/24 00:02 REMEMBER ioversol AdvReac Severe Severe PRAFUL Verified 12/19/24 00:02 ketorolac AdvReac Severe Severe PRAFUL Verified 12/19/24 00:02 hydromorphone [From Dilaudid] AdvReac Intermediate Nausea Verified 12/19/24 00:02 lisinopril AdvReac Intermediate gi upset Verified 12/19/24 00:02 as per px Home Medications Medication Instructions Recorded Confirmed Type cyclobenzaprine 5 mg tablet 5 mg PO TID PRN Muscle Spasm 11/06/20 12/19/24 History dulaglutide 3 mg/0.5 mL 3 mg subcut WK 12/01/23 12/19/24 History subcutaneous pen injector (Trulicity) insulin glargine 100 unit/mL (3 50 unit subcut BID 03/13/24 12/19/24 History mL) subcutaneous pen (Lantus Solostar U-100 Insulin) albuterol sulfate 90 mcg/actuation 2 puff inhalation DIRECTED PRN 12/19/24 12/19/24 History aerosol inhaler Shortness Of Breath Or Wheezing Past Med/Surg History Problem List Nausea & vomiting (Acute) Abdominal pain (Acute) Diabetes mellitus with hyperglycemia Acute pancreatitis (Acute) Surgical wound, non healing (Acute) COVID-19 (Acute) Neck infection Adverse reaction to anesthetic agent "8 years ago" per new pt form MSSA (methicillin susceptible Staphylococcus aureus) infection Chronic abdominal wound infection Hyperglycemia (Acute) Dehydration (Acute) Dizziness (Acute) Chest pain, precordial (Acute) Hyperglycemic crisis in diabetes mellitus Foreign body Skin ulcer (Acute) MRSA (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 (Acute) Discharge planning issues (Acute) DVT prophylaxis (Acute) Diabetes mellitus with hyperosmolarity without hyperglycemic hyperosmolar nonketotic coma (Acute) Asthma, exercise induced (Chronic) Chest pain (Acute) S/P appendectomy (Chronic) Medical History DVT prophylaxis DKA (diabetic ketoacidoses) Adrenal insufficiency Elevated troponin Parotitis Oliguria Acute renal failure Hypotension Admitted to intensive care unit Fever Leukocytosis Tachycardia Sepsis Seasonal allergies Strep pharyngitis Abscess, peritonsillar Peritonsillar abscess determined by examination Acute streptococcal tonsillitis Uncontrolled diabetes mellitus Morbid obesity ADD (attention deficit disorder) Tobacco use disorder Diabetes mellitus, type II Bipolar I disorder Depression Surgical History History of surgery on wrist History of tonsillectomy Family History Mother Hypertension Father Coronary heart disease Diabetes Brother Diabetes Other Allergies Asthma Cancer Hearing loss Heart disease No family history of adverse response to anesthesia No family history of bleeding disorder Social History Smoking Status: Current every day smoker Tobacco Type: Cigarettes Cigarettes Per Day: 1/2 pack; Second Hand Exposure: No; Do You Dip or Chew Tobacco: No; Hx Alcohol Use: No Hx Substance Use: No Preferred Language: Thai Communication Ability: Effective Communication Ability Comment: . 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 ENT- oropharynx clear Neck- supple, no JVD. Lungs- clear to auscultation , No wheezing or crackles Heart- regular rhythm; no murmur, no gallop. Abdomen- normal bowel sounds, soft, nontender, no distension Extremities- no pretibial edema, no erythema seen Neuro- alert, oriented PERRL, no facial palsy; no dysarthria; moves extremities. Skin- open wound seen in abdomen previous surgical incision site. No erythema seen. Small thick secretion seen inside the wound Results & Data Results & Data Vital Signs (Past 12 Hours) Vital Signs Temp Pulse Pulse Resp BP BP Pulse Ox 12/19/24 02:20 83 12/19/24 01:31 83 18 135/73 94 12/19/24 01:20 84 20 131/69 94 12/19/24 00:39 93 H 24 123/92 95 12/19/24 00:00 95 H 13 143/89 H 95 12/18/24 23:21 88 23 151/86 H 96 12/18/24 22:48 96 H 15 147/80 H 94 12/18/24 22:34 93 H 12/18/24 22:07 36.9 C 96 H 20 176/92 H 95 O2 Del Method 12/19/24 02:20 12/19/24 01:31 Room Air 12/19/24 01:20 Room Air 12/19/24 00:39 12/19/24 00:00 12/18/24 23:21 12/18/24 22:48 12/18/24 22:34 12/18/24 22:07 Room Air Diagnostic Findings Laboratory Results WBC 7.60 K/ul (4.8-10.8) 12/18/24 22: RBC 5.48 M/uL (4.70-6.10) 12/18/24 22: Hgb 15.4 g/dl (14.0-18.0) 12/18/24 22: POC Hgb 16.0 g/dl (14.0-18.0) 12/18/24 22: Hct 44.8 % (42.0-52.0) 12/18/24 22: POC Hct 47 % (42-52) 12/18/24 22: MCV 81.8 fL (80.0-100.0) 12/18/24 22: MCH 28.1 pg (25.0-34.0) 12/18/24 22: MCHC 34.4 g/dL (32.0-36.0) 12/18/24 22: RDW Std Deviation 39.7 fL (36.4-46.3) 12/18/24: RDW Coeff of Black 13.5 % (11.5-14.5) 12/18/24 22: Plt Count 246 K/uL (130-400) 12/18/24 22: MPV 10.5 fL (9.4-12.4) 12/18/24: Immature Gran % (Auto) 0.5 % 12/18/24: Neut % (Auto) 55.7 % 12/18/24 22: Lymph % (Auto) 33.4 % 12/18/24 22: [place] % (Auto) 7.9 % 12/18/24: Eos % (Auto) 1.8 % 12/18/24 22: Baso % (Auto) 0.7 % 12/18/24: Neut # (Auto) 4.23 K/uL (1.40-6.50) 12/18/24: Lymph # (Auto) 2.54 K/uL (1.20-3.40) 12/18/24: [place] # (Auto) 0.60 K/uL (0.11-0.59) H 12/18/24: Eos # (Auto) 0.14 K/uL (0.00-0.50) 12/18/24: Baso # (Auto) 0.05 K/uL (0.00-0.20) 12/18/24: Immature Gran # (Auto) 0.04 K/uL (0.01-0.20) 12/18/24: PT 9.3 Seconds (9.0-12.0) 12/18/24 23:53 INR 0.8 (0.9-1.1) L 12/18/24 23:53 APTT 24 Seconds (21-31) 12/18/24 23:53 PTT Ratio 0.9 12/18/24 23:53 VBG pH 7.37 (7.36-7.41) 12/18/24 22:41 VBG pCO2 38 mmHg (38-50) 12/18/24 22:41 VBG pO2 64 mmHg 12/18/24 22:41 VBG HCO3 22 mmol/L 12/18/24 22:41 VBG O2 Saturation 93.1 % 12/18/24 22:41 VBG Base Excess -2.9 mEq/L 12/18/24 22:41 POC Sodium 130 mmol/L (135-144) L 12/18/24 22:34 Sodium 127 mmol/L (136-145) L 12/18/24: POC Potassium 4.2 mmol/L (3.3-5.0) 12/18/24 22:34 Potassium 4.2 mmol/L (3.5-5.1) 12/18/24 22: POC Chloride 97 mmol/L (101-112) L 12/18/24 22: Chloride 95 mmol/L (98-107) L 12/18/24: Carbon Dioxide 22 mmol/L (21-32) 12/18/24 22:29 POC Total CO2 21 mmol/L (24-31) L 12/18/24: Anion Gap 10 (3-11) 12/18/24 22: POC Anion Gap 17.0 mmol/L (16-25) 12/18/24 22:34 POC BUN 16 mg/dl (7-18) 12/18/24 22: BUN 15 mg/dl (6-23) 12/18/24 22: Creatinine 0.78 mg/dl (0.6-1.4) 12/18/24 22: POC Creatinine 0.7 mg/dl (0.6-1.3) 12/18/24: Est Cr Clr Drug Dosing 237.2 ml/min 12/18/24 22: eGFR 114.90 12/18/24: BUN/Creatinine Ratio 19.2 (10-20) 12/18/24 22: Glucose 731 mg/dl (70-99(Fasting)) H* 12/18/24 22:29 POC Glucose 361 mg/dl (70-99) H* 12/19/24 02:49 POC Glucose (other) > 700 mg/dl (70-99) H* 12/18/24 22:34 Calcium 8.6 mg/dl (8.6-10.3) 12/18/24 22: POC Ioniz Calcium [place] 1.10 mmol/l (1.12-1.32) L 12/18/24 22: Total Bilirubin 0.3 mg/dl (0.2-1.0) 12/18/24 22: AST 12 U/L (13-39) L 12/18/24 22: ALT 25 U/L (7-52) 12/18/24 22: Alkaline Phosphatase 93 U/L (34-104) 12/18/24 22: Total Protein 6.8 gm/dl (6.0-8.3) 12/18/24 22: Albumin 3.9 gm/dl (3.4-5.0) 12/18/24: Globulin 2.9 gm/dl (2.5-4.0) 12/18/24 22: Albumin/Globulin Ratio 1.3 (0.9-2) 12/18/24 22:29 Urine Color Yellow 12/18/24 23:01 Urine Appearance Clear (Clear) 12/18/24 23: Urine pH 6.0 (4.5-7.5) 12/18/24 23:01 Ur Specific [place] 1.030 (1.000-1.030) 12/18/24 23:01 Urine Protein Negative (Negative) 12/18/24 23:01 Urine Glucose (UA) 3+ (Negative) H 12/18/24 23:01 Urine Ketones Trace (Negative) H 12/18/24 23:01 Urine Blood Negative (Negative) 12/18/24 23:01 Urine Nitrite Negative (Negative) 12/18/24 23: Urine Bilirubin Negative (Negative) 12/18/24 23: Urine Urobilinogen Negative (Negative) 12/18/24 23: Ur Leukocyte Esterase Negative (Negative) 12/18/24 23:01 SARS-CoV-2 (PCR) NEGATIVE (Negative) 12/18/24 22:41 Influenza Type A (PCR) Negative (Neg) 12/18/24 22:41 Influenza Type B (PCR) Negative (Neg) 12/18/24 22:41 RSV (RT-PCR) Negative (Neg) 12/18/24 22:41 Impressions Chest X-Ray 12/18/24 22:26 Exam(s): XR CXR 1 VIEW EXAM: XR Chest, 1 View CLINICAL HISTORY: Reason for exam: hyperglycemia. TECHNIQUE: Frontal view of the chest. COMPARISON: Prior chest x-ray from August 21, 2024. FINDINGS: Lungs: Mild to moderate peribronchial thickening of the central and lower lobe bronchi with increased interstitial opacities in the lower lobes. No consolidation. Pleural space: Unremarkable. No pneumothorax. Heart: Unremarkable. No cardiomegaly. Mediastinum: Unremarkable. Normal mediastinal contour. Bones/joints: Unremarkable. No acute fracture. IMPRESSION: Bronchitis, which may be of infectious or inflammatory etiologies. No consolidation or pleural effusion. Electronically signed by: Khloe Yost MD 12/19/24 01:55 AM ECG Additional Comments: ECG. Normal sinus rhythm with rate of 91. No significant change was found. Q Tc 440. Code Status & VTE Plan VTE Prophylaxis Plan VTE Prophylaxis will be ordered: Yes
[2024-12-19] MEDS ORDERED: PHARMACY GLYCEMIC MGMT CONSULT PRN (03:59)
[2024-12-19] MEDS ORDERED: NITROGLYCERIN SL 0.4 MG/TAB TAB SL PRN (03:59)
[2024-12-19] MEDS ORDERED: POLYETHYLENE (MIRALAX) 17 GM PACK PO PRN (03:59)
[2024-12-19] MEDS ORDERED: ALBUTEROL HFA 8 GM INHALER INH PRN (03:59)
[2024-12-19] MEDS ORDERED: CYCLOBENZAPRINE HCL 5 MG TAB PO PRN (03:59)
[2024-12-19] MEDS: cefTRIAXone SODIUM 2,000 MG/50 ML BAG IV STA (04:25)
[2024-12-19] MEDS: LANTUS PER UNIT CHARGE SC STA ×2 (04:26→12:19)
[2024-12-19] MEDS: SODIUM CHLORIDE 0.9% 1,000 ML IV SCH (04:26)
--- OUTSIDE RECORDS SUMMARY | 2024-12-19 06:33 | External Medical Summary | Summary of Care ---
Author Name Unknown Organization [facility] Address [address] [place] [address] Phone [phone] Care Team Providers Care Residential Real Estate Assistant Name Role Phone Elliot Benites DO Primary Care Provider [phone] Reason for Visit * Reason Onset Date Comments Advice 12/03/2024 Encounter Details Date Type Department Care Team (Late st Contact Info) Description 12/03/2024 Telephone Family Practice [facility] [address] [place] [address] Elliot Benites DO [address] [place] [address] Advice Allergies Active Allergy Reactions Criticality Noted Date Comments Anesthetics, Nona 04/29/1998 Aspirin 04/29/1998 Cephalosporins 04/29/1998 Penicillins 07/07/2001 Sulfa Antibiotics 04/29/1998 documented as of this encounter (statuses as of 12/10/2024) Medications Albuterol Sulfate (TO GO ALBUTEROL HFA) puff 1 Puff every 4 hours as needed for Shortness of Breath or Wheezing. Active Omeprazole 20 MG Oral Capsule Delayed Release (PriLOSEC) Take 1 Cap by mouth daily. 1 hour before the first meal of the day 30 Cap 5 07/23/20 20 Active Ibuprofen 600 MG Oral Tablet (Motrin)Indication s:Generalized osteoarthritis of multiple sites Take 1 Tablet (600 mg) by mouth in the morning and 1 Tablet (600 mg) at noon and 1 Tablet (600 mg) before bedtime. with food for pain. 60 Tablet 5 08/31/20 22 Active BD Pen Needle Joan 2nd Gen 32G X 4 MM (Insulin Pen Needle) USE TWICE DAILY OR DIRECTED 200 Each 1 06/02/20 23 Active Dexcom G7 SensorIndications: Type 2 diabetes mellitus with diabetic peripheral angiopathy without gangrene, with long-term current use of insulin (HCC) Use to check blood sugars E11.9 1 Each 3 07/19/20 23 Active Dexcom G7 Magazine Grinder Loader DeviceIndications: Type 2 diabetes mellitus with diabetic peripheral angiopathy without gangrene, with long-term current use of insulin (HCC) Use to check blood sugars E11.9 1 Each 3 07/19/20 23 Active OneTouch Verio In Vitro Strip (Glucose Blood)Indications: Type 2 diabetes mellitus with hemoglobin A1c goal of less than 7.0% (HCC),Type 2 diabetes mellitus with diabetic peripheral angiopathy without gangrene, with long-term current use of insulin (HCC),Diabetic polyneuropathy associated with type 2 diabetes mellitus (HCC) Test blood sugars one time daily 100 Strip 3 09/27/20 Active Aria SystemsTouch Delica Plus [id number] ns:Type 2 diabetes mellitus with hemoglobin A1c goal of less than 7.0% (HCC),Type 2 diabetes mellitus with diabetic peripheral angiopathy without gangrene, with long-term current use of insulin (HCC),Diabetic polyneuropathy associated with type 2 diabetes mellitus (HCC) Use as directed. Use to test blood glucose once daily 100 Each 3 09/27/20 Active Cyclobenzaprine HCl 5 MG Oral Tablet (Flexeril) TAKE 1 TABLET BY MOUTH 3 TIMES A DAY NEEDED FOR MUSCLE SPASMS Strength: 5 mg 30 Tablet 5 10/26/19 24 Active Trulicity 3 MG/0.5ML Subcutaneous Solution Pen-injector (Dulaglutide) Inject 3 mg under the skin once a week. 2 mL 5 02/09/20 24 Active Insulin Glargine Solostar 100 UNIT/ML Subcutaneous Solution Pen-injector (Lantus SoloStar)Indicatio ns:Type 2 diabetes mellitus with diabetic peripheral angiopathy without gangrene, with long-term current use of insulin (HCC) INJECT 50 UNITS SUBCUTANEOUSLY TWICE DAILY STRENGTH: 100 UNIT/ML 90 mL 10/02/20 24 Active documented as of this encounter (statuses as of 12/10/2024) Active Problems Problem Noted Date Diagnosed Date Type 2 diabetes mellitus wit h diabetic peripheral angiopathy without gangrene, with long-term current use of insulin 12/08/2022 Type 2 diabetes mellitus wit h diabetic peripheral angiopathy without gangrene 11/06/2018 Morbid obesity with BMI of 50.0-59.9, adult 12/02 Encounter for long-term (current) use of medicat ions 12/21/2017 Diabetic polyneuropathy asso ciated with type 2 diabetes mellitus 06/15/2017 Essential hypertension with goal blood pressure less than 140/90 03/03/2017 Type 2 diabetes mellitus wit h hemoglobin A1c goal of less than 7.0% 02/15/2017 Tobacco use disorder 03/05/2016 Family history of ischemic heart disease 016 Depression Overview (03/05/2016): hospitalized in early 2015- Dr Blount Bipolar 1 disorder documented as of this encounter (statuses as of 12/10/2024) Resolved Problems Problem Noted Date Diagnosed Date Resolved Date Body mass index (BMI) of 50. 0 to 59.9 in adult 07/04/2017 12/21/2017 Overview: Per Obesity protocol #1 Right wrist pain 04/27/2017 06/15/2017 Local edema 04/27/2017 06/15/2017 BMI 60.0-69.9, adult 02/15/2017 017 Overview (02/15/2017): bmi= 61.82 02/15/17 Adult BMI 50.0-59.9 kg/sq m 03/05/2016 02/15/2017 Overview (03/05/2016): bmi= 54.98 03/05/16 Respiratory failure, acute 12/17/2010 0 03/05/2016 Septicemia 12/17/2010 03/05/2016 Acute appendicitis with peritonitis 12/17/2010 03/05/2016 Acidosis 12/17/2010 03/05/2016 Asthma with severity to be determined 03/30/2010 03/05/2016 Overview (01/12/2016): Per Asthma Taxonomy ICD-10 update of inactive term ADVANCE DIRECTIVE INFORMATION 02/07/2006 03/05/2016 Overview (02/07/2006): Booklet given to pt. Reflux esophagitis 12/28/2001 6 ADJ DISORDER W/DEPRES MOOD 12/28/2001 0 03/05/2016 Tobacco use disorder 08/30/2001 016 OBESITY, UNSPECIFIED 08/30/2001 016 Behavioral problems 02/04/2000 02/16/20 17 Overview (12/18/2015): ICD-10 update of inactive term Other allergic rhinitis 01/29/199912/2015 Overview (07/26/2017): ICD-10 update of inactive term ASTHMA W STATUS ASTHMAT 03/04 Intermittent asthma with rel iever use up to twice per week 06/15/2017 documented as of this encounter (statuses as of 12/10/2024) Immunizations Name Administration Dates Next Due Covid-19 Ad26, Single Dose (Misty/J&J) 022 Pneumococcal Conjugate Vacci ne, 20-valent ([id number]) 08/31/2022 Pneumococcal Polysaccharide PPV23 (Pneumovax) 12/19/2017,12/06/2017,02/10/2017 Seasonal Influenza, PF, 6 M & above, IM , (FluLaval or Fluzone) 08/31/2022,10/08/2020 Seasonal Influenza, QUAD, wi th Preserv, 6 mons & Above, 0.5 mL, IM 08/20/2018,12/19/2017 TDAP (age 10 and older)(Boostrix) 03/05/2016 documented as of this encounter Social History Tobacco Use Types Packs/Day Years Used Date Smoking Tobacco: Every Day Cigarettes Last attempted to quit: 04/10/2018 Smokeless Tobacco: Never Comments:Smoking since age [age] 1-2 cigarettes/day Alcohol Use Standard Drinks/Week Comments Yes 0 (1 standard drink = 0.6 oz pur e alcohol) once a year PHQ-2 Answer Date Recorded PHQ-2 Score 0 04/02/2020 Utilities Answer Date Recorded Do you have trouble paying y our heating, water, or electric bill? (Adult - for ages 18 years and over) Not on file 03/20/2024 Is your family able to pay t he heat, water, or electric bill? (Household - for ages 0-17 years) Not on file 03/20/2024 Does your family have access to good internet? (Household - for ages 0-17 years) Not on file 03/20/2024 Social Connections Answer Date Recorded How often do you feel lonely or isolated from those around you? (Adult - for ages 18 years and over) Not on file 03/20/2024 Sex and Gender Information Value Date Recorded Sex Assigned at Not on file Legal Sex Male 7:16 AM EST Gender Identity Not on file Sexual Orientation Not on file documented as of this encounter Miscellaneous Notes * Telephone Encounter - Ana Daley [facility] - 12/10/2024 12:40 PM EDT Spoke to patient regarding OTC insulin - Advised pt is to use 70/30 per PCP note. Provided dosing per PCP: "I looked into the conversion: If he is switching to 70/30 he should take 24 in the morning and 16 at night. " Pt advised. He wcb if he develops any additional questions Thank you, Ana Daley PharmD Clinical Pharmacist [facility] ([facility]) 12/10/24 12:40 PM [phone] * Telephone Encounter - Luma Arechiga PHARM Tech - 12/10/2024 12:35 PM EDT Pt calling in to see if Dr was able to recommend a dosing for the [facility] insulin 70/30 from [facility] that he is going to buy until his insurance. Warm transferred to [facility] for assistance. Thank You, Luma Arechiga web content director Powerhouse Mechanic Helper II [facility] ([facility]) 12/10/2024, 12:36 PM * Telephone Encounter - Elliot Benites DO - 12/03/2024 3:56 PM EST I looked into the conversion: If he is switching to 70/30 he should take 24 in the morning and 16 at night. * Telephone Encounter - Deanne Strong OSA - 12/03/2024 8:12 AM EST Patient calling about his diabetic medication bc his insurance canceled,and was gonna get over the counter diabetic meds at [facility] pharmacy,not sure correct insulin dosage,Lantus if its a 70/30?Please call back patient at [phone].Dr. Benites is his PCP. documented in this encounter Plan of Treatment Health Maintenance Due Date Last Done Comments DISCUSS TOBACCO CESSATION (REFER TO SMARTSET #[id number]) 06/15/2018 06/15/2017 (Discussed) Depression Monitoring 04/02/2021 04/02/2020 Diabetic Foot Exam 04/02/2021 04/02/2020, 0 04/17/2018, 03/03/2017 Diabetic Eye Exam 02/25/2023 02/25/2022, 11/06/2018 Lipid Panel 11/06/2023 11/06/2018, 12/02, 04/25/2017, Additional history exists HbA1c 03/28/2024 09/27/2023, 030 05/2023, 08/31/2022, Additional history exists COVID-19 Vaccine ( season) 2024 10/31/2021 Influenza Vaccine (FLU shot) (#1) 2024 08/31/2022, 10/08/2020, 10/08/2020, Additional history exists Albumin/Creatinine Ratio 09/27/2024 023, 04/02/2020, 12/27/2017, Additional history exists GFR 09/27/2024 09/27/2023, 02/01, 04/02/2020, Additional history exists DTap/Tdap Vaccines (7 - Td or Tdap) 03/05/2026 03/05/2016, 07/11/1995, 07/11/1995, Additional history exists Hepatitis B Vaccine Completed 01/10/1996, 01/10/1996, 08/12/1995, Additional history exists Pneumococcal Vaccine: Pediatrics (0 to 5 Years) and At-Risk Patients (6 to 18 Years and 19+ Years) Completed 08/31/2022, 12/19/2017, 12/06/2017, Additional history exists HPV (Gardasil) Vaccine Aged Out No lo nger eligible based on patient's age to complete this topic MENINGOCOCCAL (MENACTRA/MENVEO) Aged Out No longer eligible based on patient's age to complete this topic Meningitis B Vaccine (Bexsero/Trumemba) Aged Out No longer eligible based on patient's age to complete this topic documented as of this encounter Medical Devices Not on filedocumented as of this encounter Advance Directives * Full Code (Latest Code Status on File) Date Activated Date Inactivated Comments 06/24/2017 4:03 PM 06/24/2017 9:46 PM This order r eflects the patients wishes and were consensually agreed upon. * Full Code Date Activated Date Inactivated Comments 01/11/2011 12:09 PM 01/13/2011 8:48 PM This order reflects the patients wishes and were consensually agreed upon. Question Answer Comments Discussion of Advance Directives occurred with: Patient * Full Code Date Activated Date Inactivated Comments 12/17/2010 12:17 PM 12/25/2010 10:10 PM This order reflects the patients wishes and were consensually agreed upon. Question Answer Comments Discussion of Advance Directives occurred with: Patient Does the patient have a Living Will? No Does the patient have Health Care Power of Attor rg? No * Full Code Date Activated Date Inactivated Comments 12/16/2010 10:44 AM 12/17/2010 12:17 PM This order reflects the patients wishes and were consensually agreed upon. Care Teams Residential Real Estate Assistant Relationship Specialty Start Date End Date Elliot Benites DO [address] [place] [address] PCP - General Family Medicine 04/17/18 documented as of this encounter
--- OUTSIDE RECORDS SUMMARY | 2024-12-19 06:33 | External Medical Summary | Summary of Care ---
Author Name Unknown Organization [facility] Address [address] [place] [address] Phone [phone] Care Team Providers Care Electrical Engineering Manager Name Role Phone Elliot Benites DO Primary Care Provider [phone] Reason for Visit * Reason Onset Date Comments Advice 12/03/2024 Encounter Details Date Type Department Care Team (Late st Contact Info) Description 12/03/2024 Telephone Family Practice [facility] [address] [facility] [place] [address] Elliot Benites DO [address] [facility] [place] [address] Advice Allergies Active Allergy Reactions Criticality Noted Date Comments Anesthetics, Nona 04/29/1998 Aspirin 04/29/1998 Cephalosporins 04/29/1998 Penicillins 07/07/2001 Sulfa Antibiotics 04/29/1998 documented as of this encounter (statuses as of 12/11/2024) Medications Albuterol Sulfate (TO GO ALBUTEROL HFA) [...] Each 3 07/19/20 23 Active Dexcom G7 Non Emergency Services Ambulance Driver DeviceIndications: Type 2 diabetes mellitus with diabetic [...] time daily 100 Strip 3 09/27/20 Active XStream SystemsTouch Delica Plus [id number] ns:Type 2 diabetes mellitus with hemoglobin A1c [...] as of this encounter (statuses as of 12/11/2024) Active Problems Problem Noted Date Diagnosed Date [...] as of this encounter (statuses as of 12/11/2024) Resolved Problems Problem Noted Date Diagnosed Date [...] as of this encounter (statuses as of 12/11/2024) Immunizations Name Administration Dates Next Due Covid-19 Ad26, Single Dose (Misty/J&J) 022 Pneumococcal Conjugate Vacci ne, 20-valent ([id number]) 08/31/2022 Pneumococcal Polysaccharide PPV23 (Pneumovax) 12/19/2017,12/06/2017,02/10/2017 Seasonal [...] Notes * Telephone Encounter - Ana Daley [facility] - 12/10/2024 12:40 PM EDT Spoke to [...] Clinical Pharmacy Services ([facility]) 12/10/24 12:40 PM [phone] * Telephone Encounter - Luma Arechiga PHARM Tech - 12/10/2024 12:35 PM EDT Pt calling in to see if Dr was able to recommend a dosing for the [facility] insulin 70/30 from [facility] that he is going to buy until his insurance. Warm transferred to [facility] for assistance. Thank You, Luma Arechiga web developer Digester Cook II [facility] ([facility]) 12/10/2024, [...] get over the counter diabetic meds at [facility] pharmacy,not sure correct insulin dosage,Lantus if its a 70/30?Please call back patient at [phone].Dr. Benites is his PCP. documented in this [...] and were consensually agreed upon. Care Teams Electrical Engineering Manager Relationship Specialty Start Date End Date Elliot Benites DO [address] [place] [address] PCP - General Family Medicine 04/17/18 documented as of this encounter
[2024-12-19 07:11] LABS: Basophils # (auto) 0.03 K/uL (0.00-0.20); Basophils % (auto) 0.5 %; Eosinophils # (auto) 0.24 K/uL (0.00-0.50); Eosinophils % (auto) 3.6 %; Hematocrit (blood only) 42.5 % (42.0-52.0); Hemoglobin 14.8 g/dl (14.0-18.0); Immature Granulocytes # (auto) 0.05 K/uL (0.01-0.20); Immature Granulocytes % (auto) 0.8 %; Lymphocytes # (auto) 2.59 K/uL (1.20-3.40); Lymphocytes % (auto) 39.4 %; Mean Corpuscular Hemoglobin 28.2 pg (25.0-34.0); Mean Corpuscular Hgb Conc 34.8 g/dL (32.0-36.0); Mean Corpuscular Volume 81.1 fL (80.0-100.0); Mean Platelet Volume 10.2 fL (9.4-12.4); Monocytes % (auto) 9.1 %; Neutrophils # (auto) 3.07 K/uL (1.40-6.50); Neutrophils % (auto) 46.6 %; Platelet Count 231 K/uL (130-400); RDW Coefficient of Variation 13.3 % (11.5-14.5); RDW Standard Deviation 39.1 fL (36.4-46.3); Red Blood Count 5.24 M/uL (4.70-6.10); White Blood Count 6.58 K/ul (4.8-10.8)
[2024-12-19 07:52] LABS: BUN Creatinine Ratio 18.4 (10-20); Calcium 8.1 mg/dl (8.6-10.3); Creatinine Clr Calc Pharmacy 377.6 ml/min; Potassium 3.4 mmol/L (3.5-5.1)
[2024-12-19] MEDS: INSULIN ASPART PER UNIT CHARGE SC SCH ×2 (08:10→18:02)
[2024-12-19] MEDS: ENOXAPARIN INJ 40 MG/0.4 ML SYR SQ SCH (08:11)
[2024-12-19] MEDS: POTASSIUM CHLORIDE / WTR 10 MEQ/100 ML PLCT IV SCH (08:44)
[2024-12-19] MEDS: POTASSIUM CHLORIDE CRTAB 20 MEQ TABCR PO STA (08:46)
[2024-12-19] MEDS: DOXYCYCLINE HYCLATE 100 MG CAP PO SCH (09:44)
[2024-12-19] MEDS: POTASSIUM CHLORIDE 20 MEQ in SODIUM CHLORIDE 0.9% 1,000 ML IV SCH (09:47)
[2024-12-19] MEDS: ACETAMINOPHEN 325 MG TAB PO PRN (10:30)
[2024-12-19 11:25] LABS: Estimated Average Glucose 301 mg/dl; Hemoglobin A1C 12.1 % (4.5-5.6)
--- NOTE | 2024-12-19 11:37 | Electrocardiogram Report ---
Test Reason : Blood Pressure : */* mmHG Vent. Rate : 91 BPM Atrial Rate : 91 BPM P-R Int : 170 ms QRS Dur : 96 ms QT Int : 358 ms P-R-T Axes : 49 30 44 degrees QTcB Int : 440 ms Normal sinus rhythm Normal ECG When compared with ECG of 21-Aug-2024 19:25, No significant change was found Confirmed by Rafa Terrazas ([id number]) on 12/19/2024 11:36:56 AM Referred By: REFERRED SELF Confirmed By: Rafa Terrazas
[2024-12-19 12:24] LABS: BUN Creatinine Ratio 13.7 (10-20); Calcium 8.3 mg/dl (8.6-10.3); Creatinine Clr Calc Pharmacy 362.8 ml/min; Potassium 4.4 mmol/L (3.5-5.1)
--- NOTE | 2024-12-19 13:24 | Pharmacy Report ---
Pharmacy Glycemic Short Note 2 - Date of Service December 19, 2024 - Glycemic Short BSG Results (Last 24 hours): 12/18/24 12/18/24 12/18/24 22:10 22:29 22:34 Glucose 731 H* POC Glucose > 600 H* POC Glucose (other) > 700 H* 12/18/24 12/19/24 12/19/24 23:45 00:43 01:50 Glucose POC Glucose > 600 H* 432 H* 438 H* POC Glucose (other) 12/19/24 12/19/24 12/19/24 02:49 03:46 04:47 Glucose POC Glucose 361 H* 279 H 240 H POC Glucose (other) 12/19/24 12/19/24 12/19/24 05:46 06:52 10:03 Glucose 225 H POC Glucose 224 H 222 H POC Glucose (other) 12/19/24 12/19/24 12/19/24 11:22 11:27 12:41 Glucose 204 H POC Glucose 199 H 205 H POC Glucose (other) OUTPATIENT ANTIDIABETIC REGIMEN: * Lantus 55 units SC BID * Trulicity 3 mg SC weekly (Sundays) HbA1c: 12.1% (12/19/24) ASSESSMENT: * WS is a 39 year old male w/ history of T2DM w/ morbid obesity * Patient recently lost insurance and plan appears to be to transition to 70/30 insulin regimen * Blood glucose on presentation > 700 mg/dL, labs not indicative of DKA/HHS * Insulin infusion and basal insulin initiated in ED * Patient is ordered a diet - will transition insulin infusion to SC regimen at dinner this evening * paraeducator consulted PLAN FOR INPATIENT GLYCEMIC CONTROL: * Continue insulin infusion until 1630 tonight (12/19/24) * Basal insulin * Lantus 50 units SC x 1 this morning * Lantus 15 units SC x 1 at lunch for total of ~0.3 unit/kg of actual body weight * Bolus insulin - starting w/ dinner on 12/19/24 * NovoLog per scale ACHS or Q6hrs while NPO * Goal Range: Low 110 mg/dL - High 140 mg/dL * Correction Factor: 15 mg/dL/unit * Nutritional / Prandial insulin per carb ratio of 1 unit per 5 grams CHO consumed
[2024-12-19 13:27] VITALS: RESP 18
--- NOTE | 2024-12-19 14:01 | Hospitalist Progress Note ---
Date of Service December 19, 2024 Assessment & Plan (1) Diabetes mellitus with hyperglycemia: Plan: 39-year-old male with past medical history significant for type 2 diabetes, diabetic polyneuropathy, diabetic peripheral angiopathy, hypertension, morbid obesity, bipolar 1 disorder, tobacco use disorder, depression, family history of ischemic heart disease presents with hyperglycemia. Sugars were running high at home and in the ER sugars were greater than 700 and ER started on insulin drip. Patient recently lost his insurance. Currently is on Lantus 55 units twice daily and Trulicity once a week per patient. Says he took his last remaining dose of Lantus tonight and took last trulicity last Tuesday. He is trying to get 70/30 as per the [facility] notes. Sugars are running high on his current home regimen of Lantus and trulicity. Sometimes has blurred visions. Has mild headache. No runny nose or sore throat. Has smoker's cough. No fevers. Earlier had some chest tightness but that resolved now. No shortness of breath. Mouth is dry. No nausea. No abdominal pain. Micturating a lot. After eating passes a lot of gas.Patient complaining of back pain. Patient also in Er when laying in the bed was feeling SOB.. At home he is sleeping okay. Currently resting comfortably and hemodynamically stable. Diabetes mellitus with hyperglycemia Non compliance due to Insurance Issues At home on Lantus 50 units twice daily and Trulicity weekly Was talking Lantus only once a day instead to BID HbA1c 12.1 Transition IV insulin to SQ as able Monitor blood glucose levels closely Glycemic pharmacist consulted unit educator consulted as well Chronic abdominal wound Follows with wound clinic Empirically on antibiotics Continue local wound care Suspected bronchitis Incidental finding on chest x-ray COVID, influenza, RSV screen negative Denies any respiratory symptoms Monitor Hyponatremia In setting of hyperglycemia Monitor sodium levels Morbid obesity BMI 55 Suspected sleep apnea ECHO: EF 55 to 60%. Mild concentric LVH. No regional wall motion abnormality. Poorly visualized valvular anatomy without significant stenosis or regurgitation. Recommend sleep study as outpatient Nocturnal oximetry study pending Hypertension Likely situational Will consider adding ARB if blood pressure consistently elevated Monitor blood pressure closely Back pain PT/OT when stable Monitor Tobacco abuse Needs counseling DVT Px: Lovenox SQ CODE STATUS Full code Disposition PT/OT prior to discharge Admission and Anticipated Discharge Date Admission Date: December 19, 2024 Subjective Patient is seen and examined at bedside Reports headache but otherwise feels well Chest tightness resolved Polyuria improving Denies any dyspnea, nausea, vomiting, dizziness No other complaints Review of Systems Review of Systems: All systems reviewed & are unremarkable except as noted in Subjective Physical Exam Physical Exam: Physical Exam: Vitals signs as noted above General Appearance:Obese, no apparent distress Head: normocephalic, Atraumatic Eyes: normal inspection, EOMI Neck: supple, Trachea midline Respiratory/Chest: Normal breath sounds, CTA, No accessory muscle use Cardiovascular: S1, S2, No murmur Abdomen/GI:Soft, Non tender, protuberant, bowel sounds present, postsurgical abd open wound, no erythema Extremities/Musculoskeletal:normal inspection, no edema Neurologic/Psych:AAOX3, grossly no focal neurological deficits Skin: normal color, warm Results & Data Results & Data Vital Signs (Past 12 Hours) Vital Signs Temp Pulse Pulse Pulse Resp BP BP 12/19/24 13:26 36.6 C 78 18 138/88 12/19/24 12:54 80 14 12/19/24 12:33 78 22 12/19/24 12:21 83 18 12/19/24 12:15 80 16 12/19/24 12:00 76 17 12/19/24 12:00 144/82 H 12/19/24 12:00 144/82 H 12/19/24 12:00 144/82 H 12/19/24 12:00 144/82 H 12/19/24 12:00 144/82 H 12/19/24 12:00 144/82 H 12/19/24 12:00 144/82 H 12/19/24 12:00 144/82 H 12/19/24 12:00 144/82 H 12/19/24 12:00 144/82 H 12/19/24 12:00 144/82 H 12/19/24 12:00 144/82 H 12/19/24 12:00 144/82 H 12/19/24 12:00 144/82 H 12/19/24 12:00 144/82 H 12/19/24 11:45 78 18 12/19/24 11:27 84 24 12/19/24 11:15 80 19 12/19/24 11:00 76 23 12/19/24 10:57 83 23 12/19/24 10:33 83 23 12/19/24 10:21 80 22 12/19/24 10:12 83 17 12/19/24 10:05 146/75 H 12/19/24 10:05 146/75 H 12/19/24 10:05 146/75 H 12/19/24 10:05 146/75 H 12/19/24 10:05 146/75 H 12/19/24 10:05 146/75 H 12/19/24 10:05 146/75 H 12/19/24 10:05 146/75 H 12/19/24 10:05 146/75 H 12/19/24 10:05 146/75 H 12/19/24 10:05 146/75 H 12/19/24 10:05 146/75 H 12/19/24 10:05 146/75 H 12/19/24 10:05 146/75 H 12/19/24 10:05 146/75 H 12/19/24 10:05 146/75 H 12/19/24 10:05 146/75 H 12/19/24 10:05 146/75 H 12/19/24 10:05 146/75 H 12/19/24 10:05 146/75 H 12/19/24 10:05 146/75 H 12/19/24 10:05 146/75 H 12/19/24 08:00 82 18 155/84 H 12/19/24 07:07 75 12/19/24 03:30 90 18 145/87 H 12/19/24 02:20 83 Pulse Ox O2 Del Method 12/19/24 13:26 96 Room Air 12/19/24 12:54 95 12/19/24 12:33 12/19/24 12:21 12/19/24 12:15 12/19/24 12:00 12/19/24 12:00 12/19/24 12:00 12/19/24 12:00 12/19/24 12:00 12/19/24 12:00 12/19/24 12:00 12/19/24 12:00 12/19/24 12:00 12/19/24 12:00 12/19/24 12:00 12/19/24 12:00 12/19/24 12:00 12/19/24 12:00 12/19/24 12:00 12/19/24 12:00 12/19/24 11:45 12/19/24 11:27 12/19/24 11:15 96 12/19/24 11:00 96 12/19/24 10:57 96 12/19/24 10:33 96 12/19/24 10:21 95 12/19/24 10:12 96 12/19/24 10:05 12/19/24 10:05 12/19/24 10:05 12/19/24 10:05 12/19/24 10:05 12/19/24 10:05 12/19/24 10:05 12/19/24 10:05 12/19/24 10:05 12/19/24 10:05 12/19/24 10:05 12/19/24 10:05 12/19/24 10:05 12/19/24 10:05 12/19/24 10:05 12/19/24 10:05 12/19/24 10:05 12/19/24 10:05 12/19/24 10:05 12/19/24 10:05 12/19/24 10:05 12/19/24 10:05 12/19/24 08:00 90 Room Air 12/19/24 07:07 12/19/24 03:30 95 Room Air 12/19/24 02:20 Laboratory Results Short CBC 12/18/24 12/19/24 Range/Units 22:29 06:52 WBC 7.60 6.58 (4.8-10.8) K/ul Hgb 15.4 14.8 (14.0-18.0) g/dl Hct 44.8 42.5 (42.0-52.0) % Plt Count 246 231 (130-400) K/uL BMP 12/18/24 12/19/24 12/19/24 22:29 06:52 11:27 Sodium 127 L 134 L 134 L Potassium 4.2 3.4 L 4.4 D Chloride 95 L 106 106 Carbon Dioxide 22 22 21 BUN 15 9 7 Creatinine 0.78 0.49 L 0.51 L Glucose 731 H* 225 H 204 H Calcium 8.6 8.1 L 8.3 L Liver Function 12/18/24 Range/Units 22:29 Total Bilirubin 0.3 (0.2-1.0) mg/dl AST 12 L (13-39) U/L ALT 25 (7-52) U/L Alkaline Phosphatase 93 (34-104) U/L Albumin 3.9 (3.4-5.0) gm/dl Urine 12/18/ Range/Units 23:01 Urine Color Yellow Urine Appearance Clear (Clear) Urine pH 6.0 (4.5-7.5) Ur Specific [place] 1.030 (1.000-1.030) Urine Protein Negative (Negative) Urine Glucose (UA) 3+ H (Negative)
[2024-12-19 15:10] LABS: BUN Creatinine Ratio 13.8 (10-20); Calcium 8.4 mg/dl (8.6-10.3); Potassium 4.1 mmol/L (3.5-5.1)
[2024-12-19] MEDS ORDERED: STOP ORDER: INSULIN INFUSION ONE (16:30)
[2024-12-19 20:06] LABS: Calcium 8.1 mg/dl (8.6-10.3); Creatinine Clr Calc Pharmacy 324.6 ml/min; Potassium 3.9 mmol/L (3.5-5.1)
[2024-12-20] MEDS: INSULIN ASPART PER UNIT CHARGE SC SCH (01:16)
[2024-12-20 07:13] LABS: Hematocrit (blood only) 43.8 % (42.0-52.0); Hemoglobin 14.7 g/dl (14.0-18.0); Mean Corpuscular Hemoglobin 27.5 pg (25.0-34.0); Mean Corpuscular Hgb Conc 33.6 g/dL (32.0-36.0); Mean Platelet Volume 10.4 fL (9.4-12.4); Platelet Count 207 K/uL (130-400); RDW Coefficient of Variation 13.8 % (11.5-14.5); RDW Standard Deviation 40.6 fL (36.4-46.3); Red Blood Count 5.34 M/uL (4.70-6.10); White Blood Count 5.43 K/ul (4.8-10.8)
[2024-12-20] MEDS: cefTRIAXone SODIUM 2,000 MG/50 ML BAG IV SCH (07:17)
[2024-12-20 07:30] LABS: BUN Creatinine Ratio 11.5 (10-20); Calcium 8.4 mg/dl (8.6-10.3); Creatinine Clr Calc Pharmacy 355.8 ml/min; Potassium 3.9 mmol/L (3.5-5.1)
--- NOTE | 2024-12-20 08:52 | Pharmacy Report ---
Pharmacy Glycemic Short Note 2 - Date of Service December 20, 2024 - Glycemic Short BSG Results (Last 24 hours): 12/19/24 12/19/24 12/19/24 06:45 07:51 10:03 Glucose POC Glucose 213 H 232 H 222 H 12/19/24 12/19/24 12/19/24 11:22 11:27 12:41 Glucose 204 H POC Glucose 199 H 205 H 12/19/24 12/19/24 12/19/24 13:30 14:24 14:28 Glucose 135 H POC Glucose 152 H 132 H 12/19/24 12/19/24 12/19/24 17:21 19:35 20:05 Glucose 242 H POC Glucose 131 H 202 H 12/20/24 12/20/24 12/20/24 00:05 05:41 05:42 Glucose 225 H POC Glucose 223 H 217 H 12/20/24 08:05 Glucose POC Glucose 246 H OUTPATIENT ANTIDIABETIC REGIMEN: * Lantus 55 units SC BID * Trulicity 3 mg SC weekly (Sundays) HbA1c: 12.1% (12/19/24) ASSESSMENT: 12/20/24: * Insulin infusion transitioned to SC basal/bolus regimen yesterday afternoon * Blood sugars elevated (>200 mg/dL) yesterday evening following transition * Will tighten Novolog this morning and plan to increase basal insulin * Plan is to transition to 70/30 insulin regimen on discharge 12/19/24: * WS is a 39 year old male w/ history of T2DM w/ morbid obesity * Patient recently lost insurance and plan appears to be to transition to 70/30 insulin regimen * Blood glucose on presentation > 700 mg/dL, labs not indicative of DKA/HHS * Insulin infusion and basal insulin initiated in ED * Patient is ordered a diet - will transition insulin infusion to SC regimen at dinner this evening * ruffling hemmer automatic consulted PLAN FOR INPATIENT GLYCEMIC CONTROL: * Basal insulin * Lantus 65 units SC qAM * Lantus 0-10-20 units SC HS (see EHR for details) * Bolus insulin - starting w/ dinner on 12/19/24 * NovoLog per scale ACHS or Q6hrs while NPO * Goal Range: Low 110 mg/dL - High 140 mg/dL * Correction Factor: 10 mg/dL/unit * Nutritional / Prandial insulin per carb ratio of 1 unit per 3 grams CHO consumed
[2024-12-20] MEDS: LANTUS PER UNIT CHARGE SC SCH ×2 (09:16→20:33)
--- NOTE | 2024-12-20 12:33 | Hospitalist Progress Note ---
Date of Service December 20, 2024 Assessment & Plan (1) Diabetes mellitus with hyperglycemia: Plan: 39-year-old male with past medical history significant for type 2 diabetes, diabetic polyneuropathy, diabetic peripheral angiopathy, hypertension, morbid obesity, bipolar 1 disorder, tobacco use disorder, depression, family history of ischemic heart disease presents with hyperglycemia. Sugars were running high at home and in the ER sugars were greater than 700 and ER started on insulin drip. Patient recently lost his insurance. Currently is on Lantus 55 units twice daily and Trulicity once a week per patient. Says he took his last remaining dose of Lantus tonight and took last trulicity last Tuesday. He is trying to get 70/30 as per the [facility] notes. Sugars are running high on his current home regimen of Lantus and trulicity. Sometimes has blurred visions. Has mild headache. No runny nose or sore throat. Has smoker's cough. No fevers. Earlier had some chest tightness but that resolved now. No shortness of breath. Mouth is dry. No nausea. No abdominal pain. Micturating a lot. After eating passes a lot of gas.Patient complaining of back pain. Patient also in Er when laying in the bed was feeling SOB.. At home he is sleeping okay. Currently resting comfortably and hemodynamically stable. Diabetes mellitus with hyperglycemia Non compliance due to Insurance Issues At home on Lantus 50 units twice daily and Trulicity weekly Was talking Lantus only once a day instead to BID HbA1c 12.1 IV insulin discontinued Continue insulin per protocol Continue to monitor blood glucose levels Appreciate Glycemic pharmacist/in service educator to help Blood glucose levels improved Likely plan to discharge tomorrow if stable Chronic abdominal wound Follows with wound clinic Wound cultures pending Empirically on discharge Rocephin Doxy Continue local wound care Follow-up wound cultures Suspected bronchitis Incidental finding on chest x-ray COVID, influenza, RSV screen negative Denies any respiratory symptoms Monitor Hyponatremia In setting of hyperglycemia Monitor sodium levels Sodium improved to 137 today Morbid obesity BMI 55 Suspected sleep apnea ECHO: EF 55 to 60%. Mild concentric LVH. No regional wall motion abnormality. Poorly visualized valvular anatomy without significant stenosis or regurgitation. Nocturnal oximetry study: Did not qualify for supplemental oxygen Recommend sleep study as outpatient Hypertension Likely situational Blood pressure stable Monitor Back pain PT/OT when stable Monitor Tobacco abuse Needs counseling DVT Px: Lovenox SQ CODE STATUS Full code Disposition Likely discharge home tomorrow Admission and Anticipated Discharge Date Admission Date: December 19, 2024 Subjective Patient is seen and examined at bedside Offers no new complaints today Denies any chest pain, dyspnea, nausea, vomiting, dizziness, abdominal pain Wound cultures pending Review of Systems Review of Systems: All systems reviewed & are unremarkable except as noted in Subjective Physical Exam Physical Exam: Physical Exam: Vitals signs as noted above General Appearance:Obese, no apparent distress Head: normocephalic, Atraumatic Eyes: normal inspection, EOMI Neck: supple, Trachea midline Respiratory/Chest: Normal breath sounds, CTA, No accessory muscle use Cardiovascular: S1, S2, No murmur Abdomen/GI:Soft, Non tender, protuberant, bowel sounds present, postsurgical abd open wound, no erythema Extremities/Musculoskeletal:normal inspection, no edema Neurologic/Psych:AAOX3, grossly no focal neurological deficits Skin: normal color, warm Results & Data Results & Data Vital Signs (Past 12 Hours) Vital Signs Temp Pulse Pulse Pulse Resp BP Pulse Ox 12/20/24 11:05 36.9 C 76 18 121/81 96 12/20/24 07:31 36.5 C 70 18 125/80 95 12/20/24 07:23 12/20/24 06:55 73 12/20/24 03:39 36.4 C L 73 18 115/74 96 12/20/24 02:14 73 Pulse Ox O2 Del Method O2 Del Method 12/20/24 11:05 Room Air 12/20/24 07:31 Room Air 12/20/24 07:23 Room Air 12/20/24 06:55 12/20/24 03:39 Room Air 12/20/24 02:14 95 Room Air Laboratory Results Short CBC 12/20/24 Range/Units 05:42 WBC 5.43 (4.8-10.8) K/ul Hgb 14.7 (14.0-18.0) g/dl Hct 43.8 (42.0-52.0) % Plt Count 207 (130-400) K/uL BMP 12/19/24 12/19/24 12/20/24 14:24 19:35 05:42 Sodium 135 L 135 L 137 Potassium 4.1 3.9 3.9 Chloride 108 H 107 108 H Carbon Dioxide 21 22 23 BUN 8 8 6 Creatinine 0.58 L 0.57 L 0.52 L Glucose 135 H 242 H 225 H Calcium 8.4 L 8.1 L 8.4 L
[2024-12-20 22:54] VITALS: PULSE 73
[2024-12-21] MEDS ORDERED: cefTRIAXone SODIUM 2,000 MG/50 ML BAG IV SCH (06:00)
[2024-12-21 08:15] VITALS: BP 116/77; TEMP 97.7; O2SAT 94
[2024-12-21 08:30] LABS: BUN Creatinine Ratio 14.5 (10-20); Calcium 8.6 mg/dl (8.6-10.3); Creatinine Clr Calc Pharmacy 298.4 ml/min; Magnesium 1.7 mg/dl (1.7-2.4); Potassium 4.1 mmol/L (3.5-5.1)
[2024-12-21] MEDS: LANTUS PER UNIT CHARGE SC SCH (08:50)
--- NOTE | 2024-12-21 10:59 | Pharmacy Report ---
Pharmacy Glycemic Short Note 2 - Date of Service December 21, 2024 - Glycemic Short BSG Results (Last 24 hours): 12/20/24 12/20/24 12/20/24 12:14 17:07 20:20 Glucose POC Glucose 214 H 116 H 140 H 12/21/24 12/21/24 07:43 07:47 Glucose 251 H POC Glucose 218 H OUTPATIENT ANTIDIABETIC REGIMEN: * Lantus 55 units SC BID * Trulicity 3 mg SC weekly (Sundays) HbA1c: 12.1% (12/19/24) ASSESSMENT: 12/21/24: * BSGs 473-431-392om/dl the last 24h. Received 75 units of basal and 74 units of bolus insulin yesterday. * Tolerating diet, continues on antibiotics. * Basal increased this AM to 70 units given elevated fasting. HS scale modified for up to additional 15 units tonight. No change to Novolog. 12/20/24: * Insulin infusion transitioned to SC basal/bolus regimen yesterday afternoon * Blood sugars elevated (>200 mg/dL) yesterday evening following transition * Will tighten Novolog this morning and plan to increase basal insulin * Plan is to transition to 70/30 insulin regimen on discharge 12/19/24: * WS is a 39 year old male w/ history of T2DM w/ morbid obesity * Patient recently lost insurance and plan appears to be to transition to 70/30 insulin regimen * Blood glucose on presentation > 700 mg/dL, labs not indicative of DKA/HHS * Insulin infusion and basal insulin initiated in ED * Patient is ordered a diet - will transition insulin infusion to SC regimen at dinner this evening * dough mixer helper consulted PLAN FOR INPATIENT GLYCEMIC CONTROL: * Basal insulin * Lantus 70 units SC qAM * Lantus 0-10-15 units SC HS (see EHR for details) * Bolus insulin - starting w/ dinner on 12/19/24 * NovoLog per scale ACHS or Q6hrs while NPO * Goal Range: Low 110 mg/dL - High 140 mg/dL * Correction Factor: 10 mg/dL/unit * Nutritional / Prandial insulin per carb ratio of 1 unit per 3 grams CHO consumed
--- NOTE | 2024-12-21 12:13 | Discharge Summary ---
Date of Service December 21, 2024 Admission HPI Per Admitting Provider 39-year-old male with past medical history significant for type 2 diabetes, diabetic polyneuropathy, diabetic peripheral angiopathy, hypertension, morbid obesity, bipolar 1 disorder, tobacco use disorder, depression, family history of ischemic heart disease presents with hyperglycemia. Sugars were running high at home and in the ER sugars were greater than 700 and ER started on insulin drip. Patient recently lost his insurance. Currently is on Lantus 55 units twice daily and Trulicity once a week per patient. Says he took his last remaining dose of Lantus tonight and took last trulicity last Tuesday. He is trying to get 70/30 as per the [facility] notes. Sugars are running high on his current home regimen of Lantus and trulicity. Sometimes has blurred visions. Has mild headache. No runny nose or sore throat. Has smoker's cough. No fevers. Earlier had some chest tightness but that resolved now. No shortness of breath. Mouth is dry. No nausea. No abdominal pain. Micturating a lot. After eating passes a lot of gas.Patient complaining of back pain. Patient also in Er when laying in the bed was feeling SOB.. At home he is sleeping okay. Currently resting comfortably and hemodynamically stable. Past medical history. As mentioned above Past surgical history. Reconstructed right wrist. Laparoscopic appendectomy. Social history. Smokes of packs units daily. No vaping. Alcohol rarely. No drug use. Family history. Brother has diabetes. Father had diabetes. Heart disorder. Mother has hypertension. Admission Exam Per Admitting Provider General- Not in distress.Morbidly obese Head- atraumatic Eyes- PERRL. ENT- oropharynx clear Neck- supple, no JVD. Lungs- clear to auscultation , No wheezing or crackles Heart- regular rhythm; no murmur, no gallop. Abdomen- normal bowel sounds, soft, nontender, no distension Extremities- no pretibial edema, no erythema seen Neuro- alert, oriented PERRL, no facial palsy; no dysarthria; moves extremities. Skin- open wound seen in abdomen previous surgical incision site. No erythema seen. Small thick secretion seen inside the wound Principal Diagnosis Diabetes mellitus with hyperglycemia Chronic abdominal wound Discharge Data Allergies Allergy/AdvReac Type Severity Reaction Status Date / Time aspirin Allergy Unknown CAN'T Verified 12/19/24 00:02 REMEMBER Cephalosporins Allergy Unknown CAN'T Verified 12/19/24 00:02 REMEMBER--HAS TOLERATED CEFTRIAXONE Penicillins Allergy Unknown CHILDHOOD Verified 12/19/24 00:02 ALLERGY Sulfa (Sulfonamide Allergy Unknown CAN'T Verified 12/19/24 00:02 Antibiotics) REMEMBER sulfamethoxazole Allergy Unknown CAN'T Verified 12/19/24 00:02 REMEMBER trimethoprim Allergy Unknown CAN'T Verified 12/19/24 00:02 REMEMBER ioversol AdvReac Severe Severe PRAFUL Verified 12/19/24 00:02 ketorolac AdvReac Severe Severe PRAFUL Verified 12/19/24 00:02 hydromorphone [From Dilaudid] AdvReac Intermediate Nausea Verified 12/19/24 00:02 lisinopril AdvReac Intermediate gi upset Verified 12/19/24 00:02 as per px Consultations 12/18/24 23:47 ED Decision to Admit Stat Procedures Performed Laboratory Results WBC 5.43 K/ul (4.8-10.8) 12/20/24 05:42 RBC 5.34 M/uL (4.70-6.10) 12/20/24 05:42 Hgb 14.7 g/dl (14.0-18.0) 12/20/24 05:42 POC Hgb 16.0 g/dl (14.0-18.0) 12/18/24 22:34 Hct 43.8 % (42.0-52.0) 12/20/24 05:42 POC Hct 47 % (42-52) 12/18/24 22:34 MCV 82.0 fL (80.0-100.0) 12/20/24 05:42 MCH 27.5 pg (25.0-34.0) 12/20/24 05:42 MCHC 33.6 g/dL (32.0-36.0) 12/20/24 05:42 RDW Std Deviation 40.6 fL (36.4-46.3) 12/20/24 05:42 RDW Coeff of Black 13.8 % (11.5-14.5) 12/20/24 05:42 Plt Count 207 K/uL (130-400) 12/20/24 05:42 MPV 10.4 fL (9.4-12.4) 12/20/24 05:42 Immature Gran % (Auto) 0.8 % 12/19/24 06:52 Neut % (Auto) 46.6 % 12/19/24 06:52 Lymph % (Auto) 39.4 % 12/19/24 06:52 Weld % (Auto) 9.1 % 12/19/24 06:52 Eos % (Auto) 3.6 % 12/19/24 06:52 Baso % (Auto) 0.5 % 12/19/24 06:52 Neut # (Auto) 3.07 K/uL (1.40-6.50) 12/19/24 06:52 Lymph # (Auto) 2.59 K/uL (1.20-3.40) 12/19/24 06:52 Weld # (Auto) 0.60 K/uL (0.11-0.59) H 12/19/24 06:52 Eos # (Auto) 0.24 K/uL (0.00-0.50) 12/19/24 06:52 Baso # (Auto) 0.03 K/uL (0.00-0.20) 12/19/24 06:52 Immature Gran # (Auto) 0.05 K/uL (0.01-0.20) 12/19/24 06:52 PT 9.3 Seconds (9.0-12.0) 12/18/24 23:53 INR 0.8 (0.9-1.1) L 12/18/24 23:53 APTT 24 Seconds (21-31) 12/18/24 23:53 PTT Ratio 0.9 12/18/24 23:53 VBG pH 7.37 (7.36-7.41) 12/18/24 22:41 VBG pCO2 38 mmHg (38-50) 12/18/24 22:41 VBG pO2 64 mmHg 12/18/24 22:41 VBG HCO3 22 mmol/L 12/18/24 22:41 VBG O2 Saturation 93.1 % 12/18/24 22:41 VBG Base Excess -2.9 mEq/L 12/18/24 22:41 POC Sodium 130 mmol/L (135-144) L 12/18/24 22:34 Sodium 137 mmol/L (136-145) 12/21/24 07:47 POC Potassium 4.2 mmol/L (3.3-5.0) 12/18/24 22:34 Potassium 4.1 mmol/L (3.5-5.1) 12/21/24 07:47 POC Chloride 97 mmol/L (101-112) L 12/18/24 22:34 Chloride 103 mmol/L (98-107) 12/21/24 07:47 Carbon Dioxide 26 mmol/L (21-32) 12/21/24 07:47 POC Total CO2 21 mmol/L (24-31) L 12/18/24 22:34 Anion Gap 8 (3-11) 12/21/24 07:47 POC Anion Gap 17.0 mmol/L (16-25) 12/18/24 22:34 POC BUN 16 mg/dl (7-18) 12/18/24 22:34 BUN 9 mg/dl (6-23) 12/21/24 07:47 Creatinine 0.62 mg/dl (0.6-1.4) 12/21/24 07:47 POC Creatinine 0.7 mg/dl (0.6-1.3) 12/18/24 22:34 Est Cr Clr Drug Dosing 298.4 ml/min 12/21/24 07:47 eGFR 123.15 12/21/24 07:47 BUN/Creatinine Ratio 14.5 (10-20) 12/21/24 07:47 Glucose 251 mg/dl (70-99(Fasting)) H 12/21/24 07:47 POC Glucose 199 mg/dl (70-99) H 12/21/24 11:41 POC Glucose (other) > 700 mg/dl (70-99) H* 12/18/24 22:34 Estimat Average Glucose 301 mg/dl 12/19/24 06:52 Hemoglobin A1c 12.1 % (4.5-5.6) H 12/19/24 06:52 Calcium 8.6 mg/dl (8.6-10.3) 12/21/24 07:47 POC Ioniz Calcium Chaka 1.10 mmol/l (1.12-1.32) L 12/18/24 22:34 Magnesium 1.7 mg/dl (1.7-2.4) 12/21/24 07:47 Total Bilirubin 0.3 mg/dl (0.2-1.0) 12/18/24 22: AST 12 U/L (13-39) L 12/18/24: ALT 25 U/L (7-52) 12/18/24 22: Alkaline Phosphatase 93 U/L (34-104) 12/18/24 22: Total Protein 6.8 gm/dl (6.0-8.3) 12/18/24: Albumin 3.9 gm/dl (3.4-5.0) 12/18/24: Globulin 2.9 gm/dl (2.5-4.0) 12/18/24: Albumin/Globulin Ratio 1.3 (0.9-2) 12/18/24 22: Urine Color Yellow 12/18/24 23: Urine Appearance Clear (Clear) 12/18/24 23: Urine pH 6.0 (4.5-7.5) 12/18/24 23: Ur Specific [place] 1.030 (1.000-1.030) 12/18/24 23:01 Urine Protein Negative (Negative) 12/18/24 23:01 Urine Glucose (UA) 3+ (Negative) H 12/18/24 23:01 Urine Ketones Trace (Negative) H 12/18/24 23:01 Urine Blood Negative (Negative) 12/18/24 23: Urine Nitrite Negative (Negative) 12/18/24 23: Urine Bilirubin Negative (Negative) 12/18/24 23:01 Urine Urobilinogen Negative (Negative) 12/18/24 23:01 Ur Leukocyte Esterase Negative (Negative) 12/18/24 23:01 SARS-CoV-2 (PCR) NEGATIVE (Negative) 12/18/24 22:41 Influenza Type A (PCR) Negative (Neg) 12/18/24 22:41 Influenza Type B (PCR) Negative (Neg) 12/18/24 22:41 RSV (RT-PCR) Negative (Neg) 12/18/24 22:41 Impressions Chest X-Ray 12/18/24 22:26 Exam(s): XR CXR 1 VIEW EXAM: XR Chest, 1 View CLINICAL HISTORY: Reason for exam: hyperglycemia. TECHNIQUE: Frontal view of the chest. COMPARISON: Prior chest x-ray from August 21, 2024. FINDINGS: Lungs: Mild to moderate peribronchial thickening of the central and lower lobe bronchi with increased interstitial opacities in the lower lobes. No consolidation. Pleural space: Unremarkable. No pneumothorax. Heart: Unremarkable. No cardiomegaly. Mediastinum: Unremarkable. Normal mediastinal contour. Bones/joints: Unremarkable. No acute fracture. IMPRESSION: Bronchitis, which may be of infectious or inflammatory etiologies. No consolidation or pleural effusion. Electronically signed by: Khloe Yost MD 12/19/24 01:55 AM Hospital Course (1) Diabetes mellitus with hyperglycemia: 39-year-old male with past medical history significant for type 2 diabetes, diabetic polyneuropathy, diabetic peripheral angiopathy, hypertension, morbid obesity, bipolar 1 disorder, tobacco use disorder, depression, family history of ischemic heart disease presents with hyperglycemia. Sugars were running high at home and in the ER sugars were greater than 700 and ER started on insulin drip. Patient recently lost his insurance. Currently is on Lantus 55 units twice daily and Trulicity once a week per patient. Says he took his last remaining dose of Lantus tonight and took last trulicity last Tuesday. He is trying to get 70/30 as per the [facility] notes. Sugars are running high on his current home re gimen of Lantus and trulicity. Sometimes has blurred visions. Has mild headache. No runny nose or sore throat. Has smoker's cough. No fevers. Earlier had some chest tightness but that resolved now. No shortness of breath. Mouth is dry. No nausea. No abdominal pain. Micturating a lot. After eating passes a lot of gas.Patient complaining of back pain. Patient also in Er when laying in the bed was feeling SOB.. At home he is sleeping okay. Currently resting comfortably and hemodynamically stable. Diabetes mellitus with hyperglycemia Non compliance due to Insurance Issues At home on Lantus 50 units twice daily and Trulicity weekly Was talking Lantus only once a day instead to BID HbA1c 12.1 IV insulin discontinued Continue insulin per protocol Continue to monitor blood glucose levels Appreciate Glycemic pharmacist/clinical trial educator to help Blood glucose levels improved Plan to discharge on ReliOn/Novolin 70/30 65 units QAM and 35 units QPM Advised to follow-up with PCP in 1 week on discharge Chronic abdominal wound Follows with wound clinic Wound cultures grew strep agalactiae Empirically on discharge RocephinJohanny Continue local wound care Transition to oral antibiotics on discharge Advised to follow-up with wound clinic Suspected bronchitis Incidental finding on chest x-ray COVID, influenza, RSV screen negative Denies any respiratory symptoms Monitor Hyponatremia In setting of hyperglycemia Monitor sodium levels Sodium improved to 137 today Morbid obesity BMI 55 Suspected sleep apnea ECHO: EF 55 to 60%. Mild concentric LVH. No regional wall motion abnormality. Poorly visualized valvular anatomy without significant stenosis or regurgitation. Nocturnal oximetry study: Did not qualify for supplemental oxygen Recommend sleep study as outpatient Hypertension Likely situational Blood pressure stable Monitor Back pain PT/OT when stable Monitor Tobacco abuse Needs counseling DVT Px: Lovenox SQ CODE STATUS Full code Disposition Home today Total Time Total Time Spent Total Time Spent (In Minutes): 43 minutes Discharge Plan Discharge Items Patient Disposition: Home - Self-Care Reason For Visit: HYPERGLYCEMIA Discharge Diagnosis: Diabetes mellitus with hyperglycemia Chronic abdominal wound Activity: Per Instructions section Exercise/Sports: Gradually increase as tolerated Non-emergency contact: Primary Care Provider and Specialist Call non-emergency contact if: you have any medication questions, your symptoms worsen, your pain is concerning for you and you have a fever Follow-up/Referrals: Elliot Benites, [Primary Care Provider] - (Date & Time 12/27/2024 1:00 PM . Provider: Velma Garcia PA-C [facility] ) Diet: Carb Consistent or DM2 and Heart Healthy Addtl Attending Provider Instructions: Follow-up with your primary care physician in 1 week as scheduled Follow-up with wound clinic for management of your abdominal wound as advised -Complete antibiotic course as prescribed --Monitor your blood glucose levels regularly as advised. --Discuss with the primary care physician for further adjustment of your insulin as needed. Seek immediate medical attention if your symptoms reoccur or worsen Please review medication list provided on discharge for any medication changes as instructed. Please call if you have any questions or problems. You can reach a [facility] hospitalist on duty at [facility] 24 hours a day by calling [phone] Pending Studies at Discharge: No Stand-Alone Forms: My [facility] [employer], Smoking Cessation Medications and DC Order Prescriptions: New doxycycline hyclate 100 mg Capsule 100 mg PO BID Qty: 10 0RF cefdinir 300 mg capsule 300 mg PO BID 5 Days Qty: 10 0RF Novolin 70-30 FlexPen U-100 100 unit/mL (70-30) insulin pen See Rx Instructions .ROUTE .COMPLEX 30 Days Qty: 15 1RF Rx Instructions: Take Insulin 65 units every morning and 35 units every afternoon. Continued cyclobenzaprine 5 mg tablet 5 mg PO TID PRN (Reason: Muscle Spasm) Trulicity 3 mg/0.5 mL pen injector 3 mg SUBCUT WK Rx Instructions: SUNDAYS albuterol sulfate 90 mcg/actuation Hfa Aerosol Inhaler 2 puff INHALATION DIRECTED PRN (Reason: Shortness Of Breath Or Wheezing) Discontinued insulin glargine [Lantus Solostar U-100 Insulin] 100 unit/mL (3 mL) insulin pen 50 unit SUBCUT BID Discharge Orders: Discharge Order (Routine); Ordered 12/21/24 Ordered By: Emmanuel Chopra Admission Data Admit Date/Time: 12/19/24 03:29 Attending Provider: Emmanuel Chopra Admit Provider: Josiah Oakes Primary Care Provider: Elliot Benites Other Providers: Josiah Oakes
--- NOTE | 2024-12-21 12:13 | Hospitalist Progress Note ---
Date of Service December 21, 2024 Assessment & Plan (1) Diabetes mellitus with hyperglycemia: Plan: 39-year-old male with past medical history significant for type 2 diabetes, diabetic polyneuropathy, diabetic peripheral angiopathy, hypertension, morbid obesity, bipolar 1 disorder, tobacco use disorder, depression, family history of ischemic heart disease presents with hyperglycemia. Sugars were running high at home and in the ER sugars were greater than 700 and ER started on insulin drip. Patient recently lost his insurance. Currently is on Lantus 55 units twice daily and Trulicity once a week per patient. Says he took his last remaining dose of Lantus tonight and took last trulicity last Tuesday. He is trying to get 70/30 as per the [facility] notes. Sugars are running high on his current home regimen of Lantus and trulicity. Sometimes has blurred visions. Has mild headache. No runny nose or sore throat. Has smoker's cough. No fevers. Earlier had some chest tightness but that resolved now. No shortness of breath. Mouth is dry. No nausea. No abdominal pain. Micturating a lot. After eating passes a lot of gas.Patient complaining of back pain. Patient also in Er when laying in the bed was feeling SOB.. At home he is sleeping okay. Currently resting comfortably and hemodynamically stable. Diabetes mellitus with hyperglycemia Non compliance due to Insurance Issues At home on Lantus 50 units twice daily and Trulicity weekly Was talking Lantus only once a day instead to BID HbA1c 12.1 IV insulin discontinued Continue insulin per protocol Continue to monitor blood glucose levels Appreciate Glycemic pharmacist/nurse educator to help Blood glucose levels improved Plan to discharge on ReliOn/Novolin 70/30 65 units QAM and 35 units QPM Advised to follow-up with PCP in 1 week on discharge Chronic abdominal wound Follows with wound clinic Wound cultures grew strep agalactiae Empirically on discharge Rocephin, Doxy Continue local wound care Transition to oral antibiotics on discharge Advised to follow-up with wound clinic Suspected bronchitis Incidental finding on chest x-ray COVID, influenza, RSV screen negative Denies any respiratory symptoms Monitor Hyponatremia In setting of hyperglycemia Monitor sodium levels Sodium improved to 137 today Morbid obesity BMI 55 Suspected sleep apnea ECHO: EF 55 to 60%. Mild concentric LVH. No regional wall motion abnormality. Poorly visualized valvular anatomy without significant stenosis or regurgitation. Nocturnal oximetry study: Did not qualify for supplemental oxygen Recommend sleep study as outpatient Hypertension Likely situational Blood pressure stable Monitor Back pain PT/OT when stable Monitor Tobacco abuse Needs counseling DVT Px: Lovenox SQ CODE STATUS Full code Disposition Home today Admission and Anticipated Discharge Date Admission Date: December 19, 2024 Subjective Patient is seen and examined at bedside Doing well today No new complaints Denies any chest pain, dyspnea, nausea, vomiting, dizziness, abdominal pain Plan to be discharged home today Review of Systems Review of Systems: All systems reviewed & are unremarkable except as noted in Subjective Physical Exam Physical Exam: Physical Exam: Vitals signs as noted above General Appearance:Obese, no apparent distress Head: normocephalic, Atraumatic Eyes: normal inspection, EOMI Neck: supple, Trachea midline Respiratory/Chest: Normal breath sounds, CTA, No accessory muscle use Cardiovascular: S1, S2, No murmur Abdomen/GI:Soft, Non tender, protuberant, bowel sounds present, postsurgical abd open wound, no erythema Extremities/Musculoskeletal:normal inspection, no edema Neurologic/Psych:AAOX3, grossly no focal neurological deficits Skin: normal color, warm Results & Data Results & Data Vital Signs (Past 12 Hours) Vital Signs Temp Pulse Resp BP Pulse Ox O2 Del Method 12/21/24 09:00 Room Air 12/21/24 07:54 36.5 C 73 18 116/77 94 Room Air Laboratory Results [facility] 12/21/24 07:47 Sodium 137 Potassium 4.1 Chloride 103 Carbon Dioxide 26 BUN 9 Creatinine 0.62 Glucose 251 H Calcium 8.6
== END 2024-12-21 13:26 | disposition home or self-care (01) | DRG 638 ==
LOC: ED 22:05 → EDINP 12-19 03:29 → 2N 12-19 04:00 → 3W 12-20 21:56

== ENCOUNTER 2025-01-13 15:23 | Inpatient (IN) ==
--- NOTE | 2025-01-13 15:48 | Emergency Department Note ---
Impression & Plan Acute hyperglycemia Admission ED Provider Note HPI: History obtained from patient. The patient is a 39-year-old gentleman with history of insulin-dependent diabetes, presents the emergency department with a chief complaint of high blood sugar. Patient states that he is felt in his normal state of health but today before lunch when he was taking his blood sugar it read as "high". Patient denies any nausea or vomiting, denies any chest pain or shortness of breath, on arrival here to the ED the patient is alert. Patient is hypertensive on arrival 173/103, heart rate is 107, patient is saturating well on room air on arrival. ROS: - Per HPI Differential Diagnosis: DKA, HHNK, medication noncompliance, infection/sepsis, amongst other potential pathologies. *Outpatient medications and allergy history reviewed. PE: General: Alert, morbidly obese HEENT: Normocephalic, trachea midline Eyes: Extraocular eye movement is intact, no scleral erythema Pulmonary: Clear to auscultation bilaterally, no wheezing Cardio: Regular rate and rhythm GI: Abdomen is soft to palpation, chronic appearing abdominal wound to the umbilical area without any surrounding erythema or purulent drainage : No suprapubic tenderness MSK: No evidence of trauma or malformation of the extremities, no edema Skin: No evidence of rash Neuro: Alert, no focal deficits Psychiatric: Cooperative INDEPENDENT INTERPRETATIONS: quality assurance monitor final: (As interpreted by myself): - An order was placed for continuous cardiac monitoring - Patient was noted to be in sinus rhythm with a rate of 95 EKG: (As interpreted by myself): Rate: 101 Rhythm: Sinus tachycardia Intervals: Within normal limits ST changes: No ST elevation Time: 1545 Interventions provided in ED: - IV fluid bolus, insulin drip, IV Rocephin Medical Decision Making: IV was established and lab work obtained, patient was placed on threat monitoring analyst. Lab work shows no leukocytosis, hemoglobin is normal, platelet count is normal, CMP shows critically elevated glucose level at 611, there is no anion gap elevation, serum bicarbonate levels within normal limits. Pseudohyponatremia is noted at 130. Urinalysis shows 1+ ketones, 1+ leukocyte esterase, and pyuria, no epithelial cells, 1+ bacteria, will send for culture and order was placed for IV ceftriaxone. Blood cultures were also drawn. Patient will be placed on insulin drip, I did discuss the patient's presentation with the on-call hospitalist for [facility] and the patient was placed for admission in stable condition for further care. Patient was in agreement to this plan he was placed for admission in stable condition. Consultants/Discussions held with other healthcare providers: - Hospitalist, Dr. Chávez Disposition discussion held by myself with: - Patient * CRITICAL CARE TIME: ( 41 ) minutes - Stabilization of critically elevated glucose level requiring initiation of insulin drip, time spent at the bedside, interpretation of diagnostic studies and lab work, discussion with other healthcare providers and arrangement of admission. Diagnosis: 1. Hyperglycemia, acute 2. Urinary tract infection, acute 3. Ketonuria, acute Disposition: Admission Amadou Elizondo DO Emergency Medicine Past Med/Surg History Problem List Acute hyperglycemia (Acute) Nausea & vomiting (Acute) Abdominal pain (Acute) Diabetes mellitus with hyperglycemia (Acute) Acute pancreatitis (Acute) Surgical wound, non healing (Acute) COVID-19 (Acute) Neck infection Adverse reaction to anesthetic agent "8 years ago" per new pt form MSSA (methicillin susceptible Staphylococcus aureus) infection Chronic abdominal wound infection Hyperglycemia (Acute) Dehydration (Acute) Dizziness (Acute) Chest pain, precordial (Acute) Hyperglycemic crisis in diabetes mellitus (Acute) Foreign body Skin ulcer (Acute) MRSA (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 (Acute) Discharge planning issues (Acute) DVT prophylaxis (Acute) Diabetes mellitus with hyperosmolarity without hyperglycemic hyperosmolar nonketotic coma (Acute) Asthma, exercise induced (Chronic) Chest pain (Acute) S/P appendectomy (Chronic) Medical History DVT prophylaxis DKA (diabetic ketoacidoses) Adrenal insufficiency Elevated troponin Parotitis Oliguria Acute renal failure Hypotension Admitted to intensive care unit Fever Leukocytosis Tachycardia Sepsis Seasonal allergies Strep pharyngitis Abscess, peritonsillar Peritonsillar abscess determined by examination Acute streptococcal tonsillitis Uncontrolled diabetes mellitus Morbid obesity ADD (attention deficit disorder) Tobacco use disorder Diabetes mellitus, type II Bipolar I disorder Depression Surgical History History of surgery on wrist History of tonsillectomy Family History Mother Hypertension Father Coronary heart disease Diabetes Brother Diabetes Other Allergies Asthma Cancer Hearing loss Heart disease No family history of adverse response to anesthesia No family history of bleeding disorder Social History Smoking Status: Unknown if ever smoked Tobacco Type: Cigarettes Cigarettes Per Day: 1/2 pack; Second Hand Exposure: No; Do You Dip or Chew Tobacco: No; Hx Alcohol Use: No Hx Substance Use: No Preferred Language: [place] Communication Ability: Effective Communication Ability Comment: . 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 Feels Safe at Home: Yes Diet: regular caffeine: Yes during the past year weight has: remained stable Do you think of yourself as: straight/heterosexual Assistive Devices: None Allergies Allergies Allergy/AdvReac Type Severity Reaction Status Date / Time aspirin Allergy Unknown CAN'T Verified 12/19/24 00:02 REMEMBER Cephalosporins Allergy Unknown CAN'T Verified 12/19/24 00:02 REMEMBER--HAS TOLERATED CEFTRIAXONE Penicillins Allergy Unknown CHILDHOOD Verified 12/19/24 00:02 ALLERGY Sulfa (Sulfonamide Allergy Unknown CAN'T Verified 12/19/24 00:02 Antibiotics) REMEMBER sulfamethoxazole Allergy Unknown CAN'T Verified 12/19/24 00:02 REMEMBER trimethoprim Allergy Unknown CAN'T Verified 12/19/24 00:02 REMEMBER ioversol AdvReac Severe Severe PRAFUL Verified 12/19/24 00:02 ketorolac AdvReac Severe Severe PRAFUL Verified 12/19/24 00:02 hydromorphone [From Dilaudid] AdvReac Intermediate Nausea Verified 12/19/24 00:02 lisinopril AdvReac Intermediate gi upset Verified 12/19/24 00:02 as per px Home Meds Home Medications Medication Instructions Recorded Confirmed cyclobenzaprine 5 mg tablet 5 mg PO TID PRN Muscle Spasm 11/06/20 01/13/25 dulaglutide 3 mg/0.5 mL 3 mg subcut WK 12/01/23 01/13/25 subcutaneous pen injector ([facility]) albuterol sulfate 90 mcg/actuation 2 puff inhalation DIRECTED PRN 12/19/24 01/13/25 aerosol inhaler Shortness Of Breath Or Wheezing insulin NPH-regular 70-30 U-100 40 - 60 unit subcut UD 01/13/25 01/13/25 insulin 100 unit/mL subcutaneous pen (Novolin 70-30 FlexPen U-100 Insulin) Results & Data (ED) Vital Signs Vital Signs - 24 hr 01/13/25 15:31 01/13/25 15:52 01/13/25 15:53 Temperature 36.3 C L Temperature Source Skin Pulse Rate 107 H 105 H Pulse Rate [Apical] 103 H Pulse Rhythm Regular Pulse Rhythm [Apical] Regular Pulse Strength [Apical] Normal Respiratory Rate 25 H 19 23 Respiratory Effort / Characteristics Spontaneous Respiratory Depth Normal Respiratory Pattern Regular Blood Pressure 173/103 H Blood Pressure [Right Arm] 159/92 H Blood Pressure Mean 126 Blood Pressure Mean [Right Arm] 114 Blood Pressure Position [Right Arm] Lying Pulse Oximetry 95 95 94 Oxygen Delivery Method Room Air Room Air Room Air Sepsis Recent Fever Within 48 Hours No Sepsis New/Unexplained Change in Mental Status N/A Sepsis Action Taken by Nursing No Action Required 01/13/25 15:55 01/13/25 17:30 01/13/25 19:00 Temperature Temperature Source Pulse Rate 105 H Pulse Rate [Apical] 99 H 90 Pulse Rhythm Pulse Rhythm [Apical] Regular Regular Pulse Strength [Apical] Normal Normal Respiratory Rate 19 24 Respiratory Effort / Characteristics Non-Labored Spontaneous Non-Labored Spontaneous Respiratory Depth Normal Normal Respiratory Pattern Regular Regular Blood Pressure Blood Pressure [Right Arm] 143/76 H 136/81 Blood Pressure Mean Blood Pressure Mean [Right Arm] 98 99 Blood Pressure Position [Right Arm] Lying Lying Pulse Oximetry 92 94 Oxygen Delivery Method Room Air Room Air Sepsis Recent Fever Within 48 Hours Sepsis New/Unexplained Change in Mental Status Sepsis Action Taken by Nursing Laboratory Data 01/13/25 15:43 01/13/25 15:43 Lab Results 01/13/25 01/13/25 01/13/25 Range/Units 15:32 15:42 15:43 WBC 9.84 (4.8-10.8) K/ul RBC 5.56 (4.70-6.10) M/uL Hgb 15.8 (14.0-18.0) g/dl POC Hgb (14.0-18.0) g/dl Hct 45.7 (42.0-52.0) % POC Hct (42-52) % MCV 82.2 (80.0-100.0) fL MCH 28.4 (25.0-34.0) pg MCHC 34.6 (32.0-36.0) g/dL RDW Std Deviation 39.9 (36.4-46.3) fL RDW Coeff of Black 13.2 (11.5-14.5) % Plt Count 265 (130-400) K/uL MPV 10.7 (9.4-12.4) fL Immature Gran % (Auto) 0.6 % Neut % (Auto) 67.8 % Lymph % (Auto) 23.9 % [place] % (Auto) 5.6 % Eos % (Auto) 1.7 % Baso % (Auto) 0.4 % Neut # (Auto) 6.67 H (1.40-6.50) K/uL Lymph # (Auto) 2.35 (1.20-3.40) K/uL [place] # (Auto) 0.55 (0.11-0.59) K/uL Eos # (Auto) 0.17 (0.00-0.50) K/uL Baso # (Auto) 0.04 (0.00-0.20) K/uL Immature Gran # (Auto) 0.06 (0.01-0.20) K/uL PT 9.3 (9.0-12.0) Seconds INR 0.8 L (0.9-1.1) VBG pH 7.41 (7.36-7.41) VBG pCO2 38 (38-50) mmHg VBG pO2 55 mmHg VBG HCO3 24 mmol/L VBG O2 Saturation 89.6 % VBG Base Excess -0.3 mEq/L POC Sodium (135-144) mmol/L Sodium 130 L (136-145) mmol/L POC Potassium (3.3-5.0) mmol/L Potassium 4.1 (3.5-5.1) mmol/L POC Chloride (101-112) mmol/L Chloride 97 L (98-107) mmol/L Carbon Dioxide 23 (21-32) mmol/L POC Total CO2 (24-31) mmol/L Anion Gap 10 (3-11) POC Anion Gap (16-25) mmol/L POC BUN (7-18) mg/dl BUN 15 (6-23) mg/dl Creatinine 0.79 (0.6-1.4) mg/dl POC Creatinine (0.6-1.3) mg/dl Est Cr Clr Drug Dosing 230.0 ml/min eGFR 114.46 BUN/Creatinine Ratio 19.0 (10-20) Glucose 611 H* (70-99(Fasting)) mg/dl POC Glucose > 600 H* (70-99) mg/dl POC Glucose (other) (70-99) mg/dl Calcium 8.5 L (8.6-10.3) mg/dl POC Ioniz Calcium Chaka (1.12-1.32) mmol/l Total Bilirubin 0.2 (0.2-1.0) mg/dl AST 14 (13-39) U/L ALT 26 (7-52) U/L Alkaline Phosphatase 100 (34-104) U/L Total Protein 7.1 (6.0-8.3) gm/dl Albumin 4.1 (3.4-5.0) gm/dl Globulin 3.0 (2.5-4.0) gm/dl Albumin/Globulin Ratio 1.4 (0.9-2) Lipase 39 (11-82) U/L Urine Color Yellow Urine Appearance Clear (Clear) Urine pH 6.0 (4.5-7.5) Ur Specific [place] 1.034 H (1.000-1.030) Urine Protein Negative (Negative) Urine Glucose (UA) 3+ H (Negative) Urine Ketones 1+ H (Negative) Urine Blood Trace H (Negative) Urine Nitrite Negative (Negative) Urine Bilirubin Negative (Negative) Urine Urobilinogen Negative (Negative) Ur Leukocyte Esterase 1+ H (Negative) Urine WBC (Auto) 21-50 H (0-5) /hpf Urine RBC (Auto) 0-2 (0-2) /hpf U Hyaline Cast (Auto) 0-2 (0-2) /lpf U Epithel Cells (Auto) 0-2 (0-2) /hpf Urine Bacteria (Auto) 1+ H (None Seen) 01/13/25 01/13/25 01/13/25 Range/Units 15:49 16:34 18:01 WBC (4.8-10.8) K/ul RBC (4.70-6.10) M/uL Hgb (14.0-18.0) g/dl POC Hgb 16.0 (14.0-18.0) g/dl Hct (42.0-52.0) % POC Hct 47 (42-52) % MCV (80.0-100.0) fL MCH (25.0-34.0) pg MCHC (32.0-36.0) g/dL RDW Std Deviation (36.4-46.3) fL RDW Coeff of Black (11.5-14.5) % Plt Count (130-400) K/uL MPV (9.4-12.4) fL Immature Gran % (Auto) % Neut % (Auto) % Lymph % (Auto) % [place] % (Auto) % Eos % (Auto) % Baso % (Auto) % Neut # (Auto) (1.40-6.50) K/uL Lymph # (Auto) (1.20-3.40) K/uL [place] # (Auto) (0.11-0.59) K/uL Eos # (Auto) (0.00-0.50) K/uL Baso # (Auto) (0.00-0.20) K/uL Immature Gran # (Auto) (0.01-0.20) K/uL PT (9.0-12.0) Seconds INR (0.9-1.1) VBG pH (7.36-7.41) VBG pCO2 (38-50) mmHg VBG pO2 mmHg VBG HCO3 mmol/L VBG O2 Saturation % VBG Base Excess mEq/L POC Sodium 134 L (135-144) mmol/L Sodium (136-145) mmol/L POC Potassium 4.1 (3.3-5.0) mmol/L Potassium (3.5-5.1) mmol/L POC Chloride 98 L (101-112) mmol/L Chloride (98-107) mmol/L Carbon Dioxide (21-32) mmol/L POC Total CO2 21 L (24-31) mmol/L Anion Gap (3-11) POC Anion Gap 20.0 (16-25) mmol/L POC BUN 16 (7-18) mg/dl BUN (6-23) mg/dl Creatinine (0.6-1.4) mg/dl POC Creatinine 0.7 (0.6-1.3) mg/dl Est Cr Clr Drug Dosing ml/min eGFR BUN/Creatinine Ratio (10-20) Glucose (70-99(Fasting)) mg/dl POC Glucose 566 H* 562 H* (70-99) mg/dl POC Glucose (other) 621 H* (70-99) mg/dl Calcium (8.6-10.3) mg/dl POC Ioniz Calcium Chaka 1.12 (1.12-1.32) mmol/l Total Bilirubin (0.2-1.0) mg/dl AST (13-39) U/L ALT (7-52) U/L Alkaline Phosphatase (34-104) U/L Total Protein (6.0-8.3) gm/dl Albumin (3.4-5.0) gm/dl Globulin (2.5-4.0) gm/dl Albumin/Globulin Ratio (0.9-2) Lipase (11-82) U/L Urine Color Urine Appearance (Clear) Urine pH (4.5-7.5) Ur Specific [place] (1.000-1.030) Urine Protein (Negative) Urine Glucose (UA) (Negative) Urine Ketones (Negative) Urine Blood (Negative) Urine Nitrite (Negative) Urine Bilirubin (Negative) Urine Urobilinogen (Negative) Ur Leukocyte Esterase (Negative) Urine WBC (Auto) (0-5) /hpf Urine RBC (Auto) (0-2) /hpf U Hyaline Cast (Auto) (0-2) /lpf U Epithel Cells (Auto) (0-2) /hpf Urine Bacteria (Auto) (None Seen) 01/13/25 Range/Units 18:59 WBC (4.8-10.8) K/ul RBC (4.70-6.10) M/uL Hgb (14.0-18.0) g/dl POC Hgb (14.0-18.0) g/dl Hct (42.0-52.0) % POC Hct (42-52) % MCV (80.0-100.0) fL MCH (25.0-34.0) pg MCHC (32.0-36.0) g/dL RDW Std Deviation (36.4-46.3) fL RDW Coeff of Black (11.5-14.5) % Plt Count (130-400) K/uL MPV (9.4-12.4) fL Immature Gran % (Auto) % Neut % (Auto) % Lymph % (Auto) % [place] % (Auto) % Eos % (Auto) % Baso % (Auto) % Neut # (Auto) (1.40-6.50) K/uL Lymph # (Auto) (1.20-3.40) K/uL [place] # (Auto) (0.11-0.59) K/uL Eos # (Auto) (0.00-0.50) K/uL Baso # (Auto) (0.00-0.20) K/uL Immature Gran # (Auto) (0.01-0.20) K/uL PT (9.0-12.0) Seconds INR (0.9-1.1) VBG pH (7.36-7.41) VBG pCO2 (38-50) mmHg VBG pO2 mmHg VBG HCO3 mmol/L VBG O2 Saturation % VBG Base Excess mEq/L POC Sodium (135-144) mmol/L Sodium (136-145) mmol/L POC Potassium (3.3-5.0) mmol/L Potassium (3.5-5.1) mmol/L POC Chloride (101-112) mmol/L Chloride (98-107) mmol/L Carbon Dioxide (21-32) mmol/L POC Total CO2 (24-31) mmol/L Anion Gap (3-11) POC Anion Gap (16-25) mmol/L POC BUN (7-18) mg/dl BUN (6-23) mg/dl Creatinine (0.6-1.4) mg/dl POC Creatinine (0.6-1.3) mg/dl Est Cr Clr Drug Dosing ml/min eGFR BUN/Creatinine Ratio (10-20) Glucose (70-99(Fasting)) mg/dl POC Glucose 470 H* (70-99) mg/dl POC Glucose (other) (70-99) mg/dl Calcium (8.6-10.3) mg/dl POC Ioniz Calcium Chaka (1.12-1.32) mmol/l Total Bilirubin (0.2-1.0) mg/dl AST (13-39) U/L ALT (7-52) U/L Alkaline Phosphatase (34-104) U/L Total Protein (6.0-8.3) gm/dl Albumin (3.4-5.0) gm/dl Globulin (2.5-4.0) gm/dl Albumin/Globulin Ratio (0.9-2) Lipase (11-82) U/L Urine Color Urine Appearance (Clear) Urine pH (4.5-7.5) Ur Specific [place] (1.000-1.030) Urine Protein (Negative) Urine Glucose (UA) (Negative) Urine Ketones (Negative) Urine Blood (Negative) Urine Nitrite (Negative) Urine Bilirubin (Negative) Urine Urobilinogen (Negative) Ur Leukocyte Esterase (Negative) Urine WBC (Auto) (0-5) /hpf Urine RBC (Auto) (0-2) /hpf U Hyaline Cast (Auto) (0-2) /lpf U Epithel Cells (Auto) (0-2) /hpf Urine Bacteria (Auto) (None Seen) Administered Medications Insulin Human Regular 250 (units/ Sodium Chloride) 250 mls @ 12 mls/hr IV .[id number] [facility]; Protocol Stop: 02/12/25 16:29 Last Titration: 01/13/25 19:02 Dose: 14.4 unit/hr, 14.4 mls/hr Documented By: LURDES Co-signed By: SHERRY Titration: 01/13/25 18:06 Dose: 12 unit/hr, 12 mls/hr Documented By: SABA Co-signed By: NEGRITA Admin: 01/13/25 17:08 Dose: 10 unit/hr, 10 mls/hr Documented By: SHERICE Co-signed By: NEGRITA Insulin Aspart (Insulin Aspart Per Unit Charge) 0 units SC ACHS [facility] Stop: 02/12/25 16:29 Last Admin: 01/13/25 17:10 Dose: Not Given Documented By: LURDES Co-signed By: NEGRITA Discontinued Medications Sodium Chloride (Nss) 1,000 mls @ 999 mls/hr IV .Q1H1M ONE Stop: 01/13/25 16:37 Last Infusion: 01/13/25 16:51 Dose: Infused Documented By: Admin: 01/13/25 15:49 Dose: 999 mls/hr Documented By: LURDES Sodium Chloride (Nss) 1,000 mls @ 999 mls/hr IV .Q1H1M DIANE Stop: 01/13/25 18:18 Last Admin: 01/13/25 18:07 Dose: 999 mls/hr Documented By: SABA Miscellaneous (Stat Iv Infusion Titration Per Protocol) 1 each N/A NOW STA Stop: 01/13/25 16:29 Last Admin: 01/13/25 17:10 Dose: Not Given Documented By: SNS Discharge Plan Visit Data Chief Complaint: Hyperglycemia Stated Complaint: HIGH BLOOD SUGAR ED Provider: mAadou Elizondo Discharge Problem: Acute hyperglycemia Forms Stand Alone Forms: [facility] Prescriptions Prescriptions: No Action cyclobenzaprine 5 mg tablet 5 mg PO TID PRN (Reason: Muscle Spasm) Trulicity 3 mg/0.5 mL pen injector 3 mg SUBCUT WK Rx Instructions: SUNDAYS Novolin 70-30 FlexPen U-100 100 unit/mL (70-30) insulin pen 40 - 60 unit subcut UD Rx Instructions: Take Insulin 60 units every morning and 40 units every pm. albuterol sulfate 90 mcg/actuation Hfa Aerosol Inhaler 2 puff INHALATION DIRECTED PRN (Reason: Shortness Of Breath Or Wheezing) Referrals Referrals: Elliot Benites, [Primary Care Provider] -
[2025-01-13] MEDS: SODIUM CHLORIDE 0.9% 1,000 ML IV ONE (15:49)
[2025-01-13 15:53] LABS: Base Excess VBG -0.3 mEq/L; HCO3 VBG 24 mmol/L; Oxygen Saturation VBG 89.6 %; PCO2 VBG 38 mmHg (38-50); PO2 VBG 55 mmHg; pH VBG 7.41 (7.36-7.41)
[2025-01-13 15:57] LABS: Basophils # (auto) 0.04 K/uL (0.00-0.20); Basophils % (auto) 0.4 %; Eosinophils # (auto) 0.17 K/uL (0.00-0.50); Eosinophils % (auto) 1.7 %; Hematocrit (blood only) 45.7 % (42.0-52.0); Hemoglobin 15.8 g/dl (14.0-18.0); Immature Granulocytes # (auto) 0.06 K/uL (0.01-0.20); Immature Granulocytes % (auto) 0.6 %; Lymphocytes # (auto) 2.35 K/uL (1.20-3.40); Lymphocytes % (auto) 23.9 %; Mean Corpuscular Hemoglobin 28.4 pg (25.0-34.0); Mean Corpuscular Hgb Conc 34.6 g/dL (32.0-36.0); Mean Corpuscular Volume 82.2 fL (80.0-100.0); Mean Platelet Volume 10.7 fL (9.4-12.4); Monocytes # (auto) 0.55 K/uL (0.11-0.59); Monocytes % (auto) 5.6 %; Neutrophils # (auto) 6.67 K/uL (1.40-6.50); Neutrophils % (auto) 67.8 %; Platelet Count 265 K/uL (130-400); RDW Coefficient of Variation 13.2 % (11.5-14.5); RDW Standard Deviation 39.9 fL (36.4-46.3); Red Blood Count 5.56 M/uL (4.70-6.10); White Blood Count 9.84 K/ul (4.8-10.8)
[2025-01-13 16:03] LABS: iSTAT Creatinine 0.7 mg/dl (0.6-1.3); iSTAT Ionized Calcium 1.12 mmol/l (1.12-1.32); iSTAT Potassium 4.1 mmol/L (3.3-5.0)
[2025-01-13 16:17] LABS: Albumin Globulin Ratio 1.4 (0.9-2); Albumin Level 4.1 gm/dl (3.4-5.0); Bilirubin,Total 0.2 mg/dl (0.2-1.0); Calcium 8.5 mg/dl (8.6-10.3); Potassium 4.1 mmol/L (3.5-5.1); Total Protein 7.1 gm/dl (6.0-8.3)
[2025-01-13 16:27] LABS: Appearance Urine Clear (Clear); Bacteria Urine Automated 1+ (None Seen); Bilirubin Urine Negative (Negative); Blood Urine Trace (Negative); Cast Urine Automated 0-2 /lpf (0-2); Color Urine Yellow; Epithelial Cell Urine Auto 0-2 /hpf (0-2); Glucose Urine UA 3+ (Negative); Ketones Urine 1+ (Negative); Leukocyte Esterase Urine 1+ (Negative); Nitrite Urine Negative (Negative); Protein Urine Negative (Negative); RBC Urine Automated 0-2 /hpf (0-2); Specific Gravity Urine 1.034 (1.000-1.030); Urobilinogen Urine Negative (Negative); WBC Urine Automated 21-50 /hpf (0-5)
[2025-01-13 16:28] LABS: INR 0.8 (0.9-1.1); Prothrombin Time 9.3 Seconds (9.0-12.0)
[2025-01-13] MEDS ORDERED: GLUCOSE 40% GEL 15 GM TUBE PO PRN (16:28)
[2025-01-13] MEDS ORDERED: GLUCOSE 10 TAB/TUBE PO PRN (16:28)
[2025-01-13] MEDS ORDERED: DEXTROSE 50% 50 ML SYRINGE IV PRN (16:28)
[2025-01-13] MEDS ORDERED: GLUCAGON FOR INJ 1 MG VIAL SQ PRN (16:28)
[2025-01-13] MEDS ORDERED: CARBOHYDRATES FOR HYPOGLYCEMIA PO PRN (16:28)
[2025-01-13] MEDS ORDERED: INSULIN REGULAR 250 UNITS in SODIUM CHLORIDE 0.9% 247.5 ML IV SCH (16:30)
[2025-01-13] MEDS: INSULIN REGULAR 250 UNITS in SODIUM CHLORIDE 0.9% 247.5 ML IV SCH (17:08)
[2025-01-13] MEDS: STAT IV Infusion **Titration per Protocol STA (17:10)
[2025-01-13] MEDS: INSULIN ASPART PER UNIT CHARGE SC SCH (17:10)
[2025-01-13] MEDS ORDERED: PHARMACY GLYCEMIC MGMT CONSULT PRN (17:18)
--- NOTE | 2025-01-13 17:18 | History & Physical Report ---
Date of Service January 13, 2025 Assessment & Plan (1) Diabetes mellitus with hyperglycemia: Plan #Uncontrolled IDDM c/b neuropathy, angiopathy -insulin ggt, transition to home dose with titration to determine appropriate level -hypoglycemia protocol -pharmacy assistance -will likely need close outpatient f/u with primary care, endocrinology -dietary consult -IVF #Asthma, htn, morbid obesity #Bipolar 1, MDD #Tobacco use -home meds -nicotine patch IVF, diabetic diet as tolerated DVT ppx History of Present Illness Primary Care Provider: Elliot Benites, 39M pmh IDDM c/b polyneuropathy, angiopathy, htn, morbid obesity, bipolar 1, tobacco use d/o, MDD, asthma presents to the ED with hyperglycemia. Patient states that since he was last here approximately 3 weeks ago for a similar issue he has been taking his insulin as prescribed. Saw endocrinology who has been helping manage his DM and his sugars have slowly crept up until today when he took it and it read "high" indicating too high to measure. No other symptoms, including chest pain, sob, fever, chills, abdominal pain. Allergies Allergy/AdvReac Type Severity Reaction Status Date / Time aspirin Allergy Unknown CAN'T Verified 12/19/24 00:02 REMEMBER Cephalosporins Allergy Unknown CAN'T Verified 12/19/24 00:02 REMEMBER--HAS TOLERATED CEFTRIAXONE Penicillins Allergy Unknown CHILDHOOD Verified 12/19/24 00:02 ALLERGY Sulfa (Sulfonamide Allergy Unknown CAN'T Verified 12/19/24 00:02 Antibiotics) REMEMBER sulfamethoxazole Allergy Unknown CAN'T Verified 12/19/24 00:02 REMEMBER trimethoprim Allergy Unknown CAN'T Verified 12/19/24 00:02 REMEMBER ioversol AdvReac Severe Severe PRAFUL Verified 12/19/24 00:02 ketorolac AdvReac Severe Severe PRAFUL Verified 12/19/24 00:02 hydromorphone [From Dilaudid] AdvReac Intermediate Nausea Verified 12/19/24 00:02 lisinopril AdvReac Intermediate gi upset Verified 12/19/24 00:02 as per px Home Medications Medication Instructions Recorded Confirmed Type cyclobenzaprine 5 mg tablet 5 mg PO TID PRN Muscle Spasm 11/06/20 01/13/25 History dulaglutide 3 mg/0.5 mL 3 mg subcut WK 12/01/23 01/13/25 History subcutaneous pen injector (Trulicity) albuterol sulfate 90 mcg/actuation 2 puff inhalation DIRECTED PRN 12/19/24 01/13/25 History aerosol inhaler Shortness Of Breath Or Wheezing insulin NPH-regular 70-30 U-100 40 - 60 unit subcut UD 01/13/25 01/13/25 History insulin 100 unit/mL subcutaneous pen (Novolin 70-30 FlexPen U-100 Insulin) Past Med/Surg History Problem List Nausea & vomiting (Acute) Abdominal pain (Acute) Diabetes mellitus with hyperglycemia (Acute) Acute pancreatitis (Acute) Surgical wound, non healing (Acute) COVID-19 (Acute) Neck infection Adverse reaction to anesthetic agent "8 years ago" per new pt form MSSA (methicillin susceptible Staphylococcus aureus) infection Chronic abdominal wound infection Hyperglycemia (Acute) Dehydration (Acute) Dizziness (Acute) Chest pain, precordial (Acute) Hyperglycemic crisis in diabetes mellitus (Acute) Foreign body Skin ulcer (Acute) MRSA (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 (Acute) Discharge planning issues (Acute) DVT prophylaxis (Acute) Diabetes mellitus with hyperosmolarity without hyperglycemic hyperosmolar nonketotic coma (Acute) Asthma, exercise induced (Chronic) Chest pain (Acute) S/P appendectomy (Chronic) Medical History DVT prophylaxis DKA (diabetic ketoacidoses) Adrenal insufficiency Elevated troponin Parotitis Oliguria Acute renal failure Hypotension Admitted to intensive care unit Fever Leukocytosis Tachycardia Sepsis Seasonal allergies Strep pharyngitis Abscess, peritonsillar Peritonsillar abscess determined by examination Acute streptococcal tonsillitis Uncontrolled diabetes mellitus Morbid obesity ADD (attention deficit disorder) Tobacco use disorder Diabetes mellitus, type II Bipolar I disorder Depression Surgical History History of surgery on wrist History of tonsillectomy Family History Mother Hypertension Father Coronary heart disease Diabetes Brother Diabetes Other Allergies Asthma Cancer Hearing loss Heart disease No family history of adverse response to anesthesia No family history of bleeding disorder Social History Smoking Status: Unknown if ever smoked Tobacco Type: Cigarettes Cigarettes Per Day: 1/2 pack; Second Hand Exposure: No; Do You Dip or Chew Tobacco: No; Hx Alcohol Use: No Hx Substance Use: No Preferred Language: Malay Communication Ability: Effective Communication Ability Comment: . 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 Feels Safe at Home: Yes Diet: regular caffeine: Yes during the past year weight has: remained stable Do you think of yourself as: straight/heterosexual Assistive Devices: None Review of Systems Constitutional: no fever, no chills and no fatigue Respiratory: no dyspnea Cardiovascular: no chest pain Physical Exam Constitutional: WD/WN, vitals as above Respiratory: normal respiratory effort, lungs clear to auscultation Cardiovascular: RRR, no murmur, no edema Results & Data Results & Data Vital Signs (Past 12 Hours) Vital Signs Temp Pulse Pulse Resp BP BP Pulse Ox 01/13/25 15:55 105 H 01/13/25 15:53 103 H 23 159/92 H 94 01/13/25 15:52 105 H 19 95 01/13/25 15:31 36.3 C L 107 H 25 H 173/103 H 95 O2 Del Method 01/13/25 15:55 01/13/25 15:53 Room Air 01/13/25 15:52 Room Air 01/13/25 15:31 Room Air Laboratory Results Abnormal lab results 01/13/25 01/13/25 01/13/25 Range/Units 15:32 15:42 15:43 Neut # (Auto) 6.67 H (1.40-6.50) K/uL INR 0.8 L (0.9-1.1) POC Sodium (135-144) mmol/L Sodium 130 L (136-145) mmol/L POC Chloride (101-112) mmol/L Chloride 97 L (98-107) mmol/L POC Total CO2 (24-31) mmol/L Glucose 611 H* (70-99(Fasting)) mg/dl POC Glucose > 600 H* (70-99) mg/dl POC Glucose (other) (70-99) mg/dl Calcium 8.5 L (8.6-10.3) mg/dl Ur Specific [place] 1.034 H (1.000-1.030) Urine Glucose (UA) 3+ H (Negative) Urine Ketones 1+ H (Negative) Urine Blood Trace H (Negative) Ur Leukocyte Esterase 1+ H (Negative) Urine WBC (Auto) 21-50 H (0-5) /hpf Urine Bacteria (Auto) 1+ H (None Seen) 01/13/25 01/13/25 Range/Units 15:49 16:34 Neut # (Auto) (1.40-6.50) K/uL INR (0.9-1.1) POC Sodium 134 L (135-144) mmol/L Sodium (136-145) mmol/L POC Chloride 98 L (101-112) mmol/L Chloride (98-107) mmol/L POC Total CO2 21 L (24-31) mmol/L Glucose (70-99(Fasting)) mg/dl POC Glucose 566 H* (70-99) mg/dl POC Glucose (other) 621 H* (70-99) mg/dl Calcium (8.6-10.3) mg/dl Ur Specific [place] (1.000-1.030) Urine Glucose (UA) (Negative) Urine Ketones (Negative) Urine Blood (Negative) Ur Leukocyte Esterase (Negative) Urine WBC (Auto) (0-5) /hpf Urine Bacteria (Auto) (None Seen)
[2025-01-13] MEDS: SODIUM CHLORIDE 0.9% 1,000 ML IV SCH ×2 (18:07→19:06)
[2025-01-13] MEDS ORDERED: ALBUTEROL HFA 8 GM INHALER INH PRN (19:24)
[2025-01-13] MEDS: cefTRIAXone SODIUM 2,000 MG/50 ML BAG IV STA (19:33)
[2025-01-13] MEDS: ENOXAPARIN INJ 40 MG/0.4 ML SYR SQ SCH (21:55)
[2025-01-14 00:15] LABS: BUN Creatinine Ratio 19.4 (10-20); Calcium 8.2 mg/dl (8.6-10.3); Creatinine Clr Calc Pharmacy 271.2 ml/min; Potassium 3.6 mmol/L (3.5-5.1)
[2025-01-14] MEDS: CYCLOBENZAPRINE HCL 5 MG TAB PO PRN (00:19)
[2025-01-14] MEDS: NSS + 20MEQ KCL 20 MEQ/1,000 ML BAG IV SCH (00:19)
[2025-01-14] MEDS: LANTUS PER UNIT CHARGE SC ONE ×2 (07:29→11:20)
[2025-01-14] MEDS: ACETAMINOPHEN 325 MG TAB PO PRN (07:36)
--- NOTE | 2025-01-14 07:40 | Hospitalist Progress Note ---
Date of Service January 14, 2025 Assessment & Plan (1) Diabetes mellitus with hyperglycemia: Plan Uncontrolled IDDM c/b neuropathy, angiopathy -insulin ggt on admission, now transitioned to subq -titrate to determine appropriate level -Glycemic pharmacy consulted -will need close outpatient f/u with primary care, endocrinology - pt reports he will follow up with [facility] -dietary consult -IVF Chronic conditions #Asthma, htn, morbid obesity #Bipolar 1, MDD #Tobacco use -home meds -nicotine patch IVF, diabetic diet as tolerated Admission and Anticipated Discharge Date Admission Date: January 13, 2025 Subjective Pt seen in follow up of hyperglycemia Sitting up in bed in NAD, overall feels well No chest pain, shortness of breath, no fever, chills, no abd. pain., n/v Initially on iv insulin -> now transitioned to subq Review of Systems Review of Systems: All systems reviewed & are unremarkable except as noted in Subjective Physical Exam Constitutional: + morbidly obese (M in NAD) Eyes: PERRL, conjunctivae normal, anicteric sclerae ENMT: external ear and nose normal, oropharynx normal Neck: + thick neck Respiratory: normal respiratory effort, lungs clear to auscultation Cardiovascular: RRR, no murmur, no edema Gastrointestinal (Abdomen): normal bowel sounds, soft, nontender, no hepatosplenomegaly (obese abdomen) Musculoskeletal: no cyanosis or clubbing, extremities motor strength 5/5 Skin: warm, dry Neurologic: PERRL, EOMI, accommodation nl, no face palsy, no dysarthria Psychiatric: A+Ox3, euthymic affect Results & Data Results & Data Vital Signs (Past 12 Hours) Vital Signs Temp Pulse Pulse Pulse Resp BP BP 01/14/25 07:23 36.6 C 73 18 120/77 01/14/25 04:45 36.4 C L 78 18 119/77 01/13/25 23:30 01/13/25 23:26 36.8 C 87 16 145/92 H 01/13/25 21:29 88 22 01/13/25 21:00 91 H 16 146/79 H 01/13/25 19:47 94 H Pulse Ox O2 Del Method 01/14/25 07:23 95 Room Air 01/14/25 04:45 92 Room Air 01/13/25 23:30 Room Air 01/13/25 23:26 94 Room Air 01/13/25 21:29 93 Room Air 01/13/25 21:00 95 Room Air 01/13/25 19:47 Laboratory Results 01/14/25 01/14/25 01/14/25 Range/Units 06:30 05:28 04:27 WBC (4.8-10.8) K/ul RBC (4.70-6.10) M/uL Hgb (14.0-18.0) g/dl POC Hgb (14.0-18.0) g/dl Hct (42.0-52.0) % POC Hct (42-52) % MCV (80.0-100.0) fL MCH (25.0-34.0) pg MCHC (32.0-36.0) g/dL RDW Std Deviation (36.4-46.3) fL RDW Coeff of Black (11.5-14.5) % Plt Count (130-400) K/uL MPV (9.4-12.4) fL Immature Gran % (Auto) % Neut % (Auto) % Lymph % (Auto) % O'Brien % (Auto) % Eos % (Auto) % Baso % (Auto) % Neut # (Auto) (1.40-6.50) K/uL Lymph # (Auto) (1.20-3.40) K/uL O'Brien # (Auto) (0.11-0.59) K/uL Eos # (Auto) (0.00-0.50) K/uL Baso # (Auto) (0.00-0.20) K/uL Immature Gran # (Auto) (0.01-0.20) K/uL PT (9.0-12.0) Seconds INR (0.9-1.1) VBG pH (7.36-7.41) VBG pCO2 (38-50) mmHg VBG pO2 mmHg VBG HCO3 mmol/L VBG O2 Saturation % VBG Base Excess mEq/L POC Sodium (135-144) mmol/L Sodium (136-145) mmol/L POC Potassium (3.3-5.0) mmol/L Potassium (3.5-5.1) mmol/L POC Chloride (101-112) mmol/L Chloride (98-107) mmol/L Carbon Dioxide (21-32) mmol/L POC Total CO2 (24-31) mmol/L Anion Gap (3-11) POC Anion Gap (16-25) mmol/L POC BUN (7-18) mg/dl BUN (6-23) mg/dl Creatinine (0.6-1.4) mg/dl POC Creatinine (0.6-1.3) mg/dl Est Cr Clr Drug Dosing ml/min eGFR BUN/Creatinine Ratio (10-20) Glucose (70-99(Fasting)) mg/dl POC Glucose 177 H 203 H 173 H (70-99) mg/dl POC Glucose (other) (70-99) mg/dl Calcium (8.6-10.3) mg/dl POC Ioniz Calcium Chaka (1.12-1.32) mmol/l Total Bilirubin (0.2-1.0) mg/dl AST (13-39) U/L ALT (7-52) U/L Alkaline Phosphatase (34-104) U/L Total Protein (6.0-8.3) gm/dl Albumin (3.4-5.0) gm/dl Globulin (2.5-4.0) gm/dl Albumin/Globulin Ratio (0.9-2) Lipase (11-82) U/L Urine Color Urine Appearance (Clear) Urine pH (4.5-7.5) Ur Specific [place] (1.000-1.030) Urine Protein (Negative) Urine Glucose (UA) (Negative) Urine Ketones (Negative) Urine Blood (Negative) Urine Nitrite (Negative) Urine Bilirubin (Negative) Urine Urobilinogen (Negative) Ur Leukocyte Esterase (Negative) Urine WBC (Auto) (0-5) /hpf Urine RBC (Auto) (0-2) /hpf U Hyaline Cast (Auto) (0-2) /lpf U Epithel Cells (Auto) (0-2) /hpf Urine Bacteria (Auto) (None Seen) 01/14/25 01/14/25 01/14/25 Range/Units 03:33 02:26 01:27 WBC (4.8-10.8) K/ul RBC (4.70-6.10) M/uL Hgb (14.0-18.0) g/dl POC Hgb (14.0-18.0) g/dl Hct (42.0-52.0) % POC Hct (42-52) % MCV (80.0-100.0) fL MCH (25.0-34.0) pg MCHC (32.0-36.0) g/dL RDW Std Deviation (36.4-46.3) fL RDW Coeff of Black (11.5-14.5) % Plt Count (130-400) K/uL MPV (9.4-12.4) fL Immature Gran % (Auto) % Neut % (Auto) % Lymph % (Auto) % O'Brien % (Auto) % Eos % (Auto) % Baso % (Auto) % Neut # (Auto) (1.40-6.50) K/uL Lymph # (Auto) (1.20-3.40) K/uL O[place]Brien # (Auto) (0.11-0.59) K/uL Eos # (Auto) (0.00-0.50) K/uL Baso # (Auto) (0.00-0.20) K/uL Immature Gran # (Auto) (0.01-0.20) K/uL PT (9.0-12.0) Seconds INR (0.9-1.1) VBG pH (7.36-7.41) VBG pCO2 (38-50) mmHg VBG pO2 mmHg VBG HCO3 mmol/L VBG O2 Saturation % VBG Base Excess mEq/L POC Sodium (135-144) mmol/L Sodium (136-145) mmol/L POC Potassium (3.3-5.0) mmol/L Potassium (3.5-5.1) mmol/L POC Chloride (101-112) mmol/L Chloride (98-107) mmol/L Carbon Dioxide (21-32) mmol/L POC Total CO2 (24-31) mmol/L Anion Gap (3-11) POC Anion Gap (16-25) mmol/L POC BUN (7-18) mg/dl BUN (6-23) mg/dl Creatinine (0.6-1.4) mg/dl POC Creatinine (0.6-1.3) mg/dl Est Cr Clr Drug Dosing ml/min eGFR BUN/Creatinine Ratio (10-20) Glucose (70-99(Fasting)) mg/dl POC Glucose 165 H 198 H 246 H (70-99) mg/dl POC Glucose (other) (70-99) mg/dl Calcium (8.6-10.3) mg/dl POC Ioniz Calcium Chaka (1.12-1.32) mmol/l Total Bilirubin (0.2-1.0) mg/dl AST (13-39) U/L ALT (7-52) U/L Alkaline Phosphatase (34-104) U/L Total Protein (6.0-8.3) gm/dl Albumin (3.4-5.0) gm/dl Globulin (2.5-4.0) gm/dl Albumin/Globulin Ratio (0.9-2) Lipase (11-82) U/L Urine Color Urine Appearance (Clear) Urine pH (4.5-7.5) Ur Specific [place] (1.000-1.030) Urine Protein (Negative) Urine Glucose (UA) (Negative) Urine Ketones (Negative) Urine Blood (Negative) Urine Nitrite (Negative) Urine Bilirubin (Negative) Urine Urobilinogen (Negative) Ur Leukocyte Esterase (Negative) Urine WBC (Auto) (0-5) /hpf Urine RBC (Auto) (0-2) /hpf U Hyaline Cast (Auto) (0-2) /lpf U Epithel Cells (Auto) (0-2) /hpf Urine Bacteria (Auto) (None Seen) 01/14/25 01/13/25 01/13/25 Range/Units 00:29 23:57 23:40 WBC (4.8-10.8) K/ul RBC (4.70-6.10) M/uL Hgb (14.0-18.0) g/dl POC Hgb (14.0-18.0) g/dl Hct (42.0-52.0) % POC Hct (42-52) % MCV (80.0-100.0) fL MCH (25.0-34.0) pg MCHC (32.0-36.0) g/dL RDW Std Deviation (36.4-46.3) fL RDW Coeff of Black (11.5-14.5) % Plt Count (130-400) K/uL MPV (9.4-12.4) fL Immature Gran % (Auto) % Neut % (Auto) % Lymph % (Auto) % O'Brien % (Auto) % Eos % (Auto) % Baso % (Auto) % Neut # (Auto) (1.40-6.50) K/uL Lymph # (Auto) (1.20-3.40) K/uL O'Brien # (Auto) (0.11-0.59) K/uL Eos # (Auto) (0.00-0.50) K/uL Baso # (Auto) (0.00-0.20) K/uL Immature Gran # (Auto) (0.01-0.20) K/uL PT (9.0-12.0) Seconds INR (0.9-1.1) VBG pH (7.36-7.41) VBG pCO2 (38-50) mmHg VBG pO2 mmHg VBG HCO3 mmol/L VBG O2 Saturation % VBG Base Excess mEq/L POC Sodium (135-144) mmol/L Sodium 136 (136-145) mmol/L POC Potassium (3.3-5.0) mmol/L Potassium 3.6 (3.5-5.1) mmol/L POC Chloride (101-112) mmol/L Chloride 105 (98-107) mmol/L Carbon Dioxide 23 (21-32) mmol/L POC Total CO2 (24-31) mmol/L Anion Gap 8 (3-11) POC Anion Gap (16-25) mmol/L POC BUN (7-18) mg/dl BUN 13 (6-23) mg/dl Creatinine 0.67 (0.6-1.4) mg/dl POC Creatinine (0.6-1.3) mg/dl Est Cr Clr Drug Dosing 271.2 ml/min eGFR 120.30 BUN/Creatinine Ratio 19.4 (10-20) Glucose 196 H (70-99(Fasting)) mg/dl POC Glucose 199 H 186 H (70-99) mg/dl POC Glucose (other) (70-99) mg/dl Calcium 8.2 L (8.6-10.3) mg/dl POC Ioniz Calcium Chaka (1.12-1.32) mmol/l Total Bilirubin (0.2-1.0) mg/dl AST (13-39) U/L ALT (7-52) U/L Alkaline Phosphatase (34-104) U/L Total Protein (6.0-8.3) gm/dl Albumin (3.4-5.0) gm/dl Globulin (2.5-4.0) gm/dl Albumin/Globulin Ratio (0.9-2) Lipase (11-82) U/L Urine Color Urine Appearance (Clear) Urine pH (4.5-7.5) Ur Specific [place] (1.000-1.030) Urine Protein (Negative) Urine Glucose (UA) (Negative) Urine Ketones (Negative) Urine Blood (Negative) Urine Nitrite (Negative) Urine Bilirubin (Negative) Urine Urobilinogen (Negative) Ur Leukocyte Esterase (Negative) Urine WBC (Auto) (0-5) /hpf Urine RBC (Auto) (0-2) /hpf U Hyaline Cast (Auto) (0-2) /lpf U Epithel Cells (Auto) (0-2) /hpf Urine Bacteria (Auto) (None Seen) 01/13/25 01/13/25 01/13/25 Range/Units 22:58 21:56 21:00 WBC (4.8-10.8) K/ul RBC (4.70-6.10) M/uL Hgb (14.0-18.0) g/dl POC Hgb (14.0-18.0) g/dl Hct (42.0-52.0) % POC Hct (42-52) % MCV (80.0-100.0) fL MCH (25.0-34.0) pg MCHC (32.0-36.0) g/dL RDW Std Deviation (36.4-46.3) fL RDW Coeff of Black (11.5-14.5) % Plt Count (130-400) K/uL MPV (9.4-12.4) fL Immature Gran % (Auto) % Neut % (Auto) % Lymph % (Auto) % O'Brien % (Auto) % Eos % (Auto) % Baso % (Auto) % Neut # (Auto) (1.40-6.50) K/uL Lymph # (Auto) (1.20-3.40) K/uL O[place]Brien # (Auto) (0.11-0.59) K/uL Eos # (Auto) (0.00-0.50) K/uL Baso # (Auto) (0.00-0.20) K/uL Immature Gran # (Auto) (0.01-0.20) K/uL PT (9.0-12.0) Seconds INR (0.9-1.1) VBG pH (7.36-7.41) VBG pCO2 (38-50) mmHg VBG pO2 mmHg VBG HCO3 mmol/L VBG O2 Saturation % VBG Base Excess mEq/L POC Sodium (135-144) mmol/L Sodium (136-145) mmol/L POC Potassium (3.3-5.0) mmol/L Potassium (3.5-5.1) mmol/L POC Chloride (101-112) mmol/L Chloride (98-107) mmol/L Carbon Dioxide (21-32) mmol/L POC Total CO2 (24-31) mmol/L Anion Gap (3-11) POC Anion Gap (16-25) mmol/L POC BUN (7-18) mg/dl BUN (6-23) mg/dl Creatinine (0.6-1.4) mg/dl POC Creatinine (0.6-1.3) mg/dl Est Cr Clr Drug Dosing ml/min eGFR BUN/Creatinine Ratio (10-20) Glucose (70-99(Fasting)) mg/dl POC Glucose 217 H 281 H 258 H (70-99) mg/dl POC Glucose (other) (70-99) mg/dl Calcium (8.6-10.3) mg/dl POC Ioniz Calcium Chaka (1.12-1.32) mmol/l Total Bilirubin (0.2-1.0) mg/dl AST (13-39) U/L ALT (7-52) U/L Alkaline Phosphatase (34-104) U/L Total Protein (6.0-8.3) gm/dl Albumin (3.4-5.0) gm/dl Globulin (2.5-4.0) gm/dl Albumin/Globulin Ratio (0.9-2) Lipase (11-82) U/L Urine Color Urine Appearance (Clear) Urine pH (4.5-7.5) Ur Specific [place] (1.000-1.030) Urine Protein (Negative) Urine Glucose (UA) (Negative) Urine Ketones (Negative) Urine Blood (Negative) Urine Nitrite (Negative) Urine Bilirubin (Negative) Urine Urobilinogen (Negative) Ur Leukocyte Esterase (Negative) Urine WBC (Auto) (0-5) /hpf Urine RBC (Auto) (0-2) /hpf U Hyaline Cast (Auto) (0-2) /lpf U Epithel Cells (Auto) (0-2) /hpf Urine Bacteria (Auto) (None Seen) 01/13/25 01/13/25 01/13/25 Range/Units 19:58 18:59 18:01 WBC (4.8-10.8) K/ul RBC (4.70-6.10) M/uL Hgb (14.0-18.0) g/dl POC Hgb (14.0-18.0) g/dl Hct (42.0-52.0) % POC Hct (42-52) % MCV (80.0-100.0) fL MCH (25.0-34.0) pg MCHC (32.0-36.0) g/dL RDW Std Deviation (36.4-46.3) fL RDW Coeff of Black (11.5-14.5) % Plt Count (130-400) K/uL MPV (9.4-12.4) fL Immature Gran % (Auto) % Neut % (Auto) % Lymph % (Auto) % O'Brien % (Auto) % Eos % (Auto) % Baso % (Auto) % Neut # (Auto) (1.40-6.50) K/uL Lymph # (Auto) (1.20-3.40) K/uL O[place]Brien # (Auto) (0.11-0.59) K/uL Eos # (Auto) (0.00-0.50) K/uL Baso # (Auto) (0.00-0.20) K/uL Immature Gran # (Auto) (0.01-0.20) K/uL PT (9.0-12.0) Seconds INR (0.9-1.1) VBG pH (7.36-7.41) VBG pCO2 (38-50) mmHg VBG pO2 mmHg VBG HCO3 mmol/L VBG O2 Saturation % VBG Base Excess mEq/L POC Sodium (135-144) mmol/L Sodium (136-145) mmol/L POC Potassium (3.3-5.0) mmol/L Potassium (3.5-5.1) mmol/L POC Chloride (101-112) mmol/L Chloride (98-107) mmol/L Carbon Dioxide (21-32) mmol/L POC Total CO2 (24-31) mmol/L Anion Gap (3-11) POC Anion Gap (16-25) mmol/L POC BUN (7-18) mg/dl BUN (6-23) mg/dl Creatinine (0.6-1.4) mg/dl POC Creatinine (0.6-1.3) mg/dl Est Cr Clr Drug Dosing ml/min eGFR BUN/Creatinine Ratio (10-20) Glucose (70-99(Fasting)) mg/dl POC Glucose 410 H* 470 H* 562 H* (70-99) mg/dl POC Glucose (other) (70-99) mg/dl Calcium (8.6-10.3) mg/dl POC Ioniz Calcium Chaka (1.12-1.32) mmol/l Total Bilirubin (0.2-1.0) mg/dl AST (13-39) U/L ALT (7-52) U/L Alkaline Phosphatase (34-104) U/L Total Protein (6.0-8.3) gm/dl Albumin (3.4-5.0) gm/dl Globulin (2.5-4.0) gm/dl Albumin/Globulin Ratio (0.9-2) Lipase (11-82) U/L Urine Color Urine Appearance (Clear) Urine pH (4.5-7.5) Ur Specific [place] (1.000-1.030) Urine Protein (Negative) Urine Glucose (UA) (Negative) Urine Ketones (Negative) Urine Blood (Negative) Urine Nitrite (Negative) Urine Bilirubin (Negative) Urine Urobilinogen (Negative) Ur Leukocyte Esterase (Negative) Urine WBC (Auto) (0-5) /hpf Urine RBC (Auto) (0-2) /hpf U Hyaline Cast (Auto) (0-2) /lpf U Epithel Cells (Auto) (0-2) /hpf Urine Bacteria (Auto) (None Seen) 01/13/25 01/13/25 01/13/25 Range/Units 16:34 15:49 15:43 WBC 9.84 (4.8-10.8) K/ul RBC 5.56 (4.70-6.10) M/uL Hgb 15.8 (14.0-18.0) g/dl POC Hgb 16.0 (14.0-18.0) g/dl Hct 45.7 (42.0-52.0) % POC Hct 47 (42-52) % MCV 82.2 (80.0-100.0) fL MCH 28.4 (25.0-34.0) pg MCHC 34.6 (32.0-36.0) g/dL RDW Std Deviation 39.9 (36.4-46.3) fL RDW Coeff of Lback 13.2 (11.5-14.5) % Plt Count 265 (130-400) K/uL MPV 10.7 (9.4-12.4) fL Immature Gran % (Auto) 0.6 % Neut % (Auto) 67.8 % Lymph % (Auto) 23.9 % O'Brien % (Auto) 5.6 % Eos % (Auto) 1.7 % Baso % (Auto) 0.4 % Neut # (Auto) 6.67 H (1.40-6.50) K/uL Lymph # (Auto) 2.35 (1.20-3.40) K/uL O[place]Brien # (Auto) 0.55 (0.11-0.59) K/uL Eos # (Auto) 0.17 (0.00-0.50) K/uL Baso # (Auto) 0.04 (0.00-0.20) K/uL Immature Gran # (Auto) 0.06 (0.01-0.20) K/uL PT 9.3 (9.0-12.0) Seconds INR 0.8 L (0.9-1.1) VBG pH 7.41 (7.36-7.41) VBG pCO2 38 (38-50) mmHg VBG pO2 55 mmHg VBG HCO3 24 mmol/L VBG O2 Saturation 89.6 % VBG Base Excess -0.3 mEq/L POC Sodium 134 L (135-144) mmol/L Sodium 130 L (136-145) mmol/L POC Potassium 4.1 (3.3-5.0) mmol/L Potassium 4.1 (3.5-5.1) mmol/L POC Chloride 98 L (101-112) mmol/L Chloride 97 L (98-107) mmol/L Carbon Dioxide 23 (21-32) mmol/L POC Total CO2 21 L (24-31) mmol/L Anion Gap 10 (3-11) POC Anion Gap 20.0 (16-25) mmol/L POC BUN 16 (7-18) mg/dl BUN 15 (6-23) mg/dl Creatinine 0.79 (0.6-1.4) mg/dl POC Creatinine 0.7 (0.6-1.3) mg/dl Est Cr Clr Drug Dosing 230.0 ml/min eGFR 114.46 BUN/Creatinine Ratio 19.0 (10-20) Glucose 611 H* (70-99(Fasting)) mg/dl POC Glucose 566 H* (70-99) mg/dl POC Glucose (other) 621 H* (70-99) mg/dl Calcium 8.5 L (8.6-10.3) mg/dl POC Ioniz Calcium Chaka 1.12 (1.12-1.32) mmol/l Total Bilirubin 0.2 (0.2-1.0) mg/dl AST 14 (13-39) U/L ALT 26 (7-52) U/L Alkaline Phosphatase 100 (34-104) U/L Total Protein 7.1 (6.0-8.3) gm/dl Albumin 4.1 (3.4-5.0) gm/dl Globulin 3.0 (2.5-4.0) gm/dl Albumin/Globulin Ratio 1.4 (0.9-2) Lipase 39 (11-82) U/L Urine Color Urine Appearance (Clear) Urine pH (4.5-7.5) Ur Specific [place] (1.000-1.030) Urine Protein (Negative) Urine Glucose (UA) (Negative) Urine Ketones (Negative) Urine Blood (Negative) Urine Nitrite (Negative) Urine Bilirubin (Negative) Urine Urobilinogen (Negative) Ur Leukocyte Esterase (Negative) Urine WBC (Auto) (0-5) /hpf Urine RBC (Auto) (0-2) /hpf U Hyaline Cast (Auto) (0-2) /lpf U Epithel Cells (Auto) (0-2) /hpf Urine Bacteria (Auto) (None Seen) 01/13/25 01/13/25 Range/Units 15:42 15:32 WBC (4.8-10.8) K/ul RBC (4.70-6.10) M/uL Hgb (14.0-18.0) g/dl POC Hgb (14.0-18.0) g/dl Hct (42.0-52.0) % POC Hct (42-52) % MCV (80.0-100.0) fL MCH (25.0-34.0) pg MCHC (32.0-36.0) g/dL RDW Std Deviation (36.4-46.3) fL RDW Coeff of Black (11.5-14.5) % Plt Count (130-400) K/uL MPV (9.4-12.4) fL Immature Gran % (Auto) % Neut % (Auto) % Lymph % (Auto) % O[place]Brien % (Auto) % Eos % (Auto) % Baso % (Auto) % Neut # (Auto) (1.40-6.50) K/uL Lymph # (Auto) (1.20-3.40) K/uL [place]Brien # (Auto) (0.11-0.59) K/uL Eos # (Auto) (0.00-0.50) K/uL Baso # (Auto) (0.00-0.20) K/uL Immature Gran # (Auto) (0.01-0.20) K/uL PT (9.0-12.0) Seconds INR (0.9-1.1) VBG pH (7.36-7.41) VBG pCO2 (38-50) mmHg VBG pO2 mmHg VBG HCO3 mmol/L VBG O2 Saturation % VBG Base Excess mEq/L POC Sodium (135-144) mmol/L Sodium (136-145) mmol/L POC Potassium (3.3-5.0) mmol/L Potassium (3.5-5.1) mmol/L POC Chloride (101-112) mmol/L Chloride (98-107) mmol/L Carbon Dioxide (21-32) mmol/L POC Total CO2 (24-31) mmol/L Anion Gap (3-11) POC Anion Gap (16-25) mmol/L POC BUN (7-18) mg/dl BUN (6-23) mg/dl Creatinine (0.6-1.4) mg/dl POC Creatinine (0.6-1.3) mg/dl Est Cr Clr Drug Dosing ml/min eGFR BUN/Creatinine Ratio (10-20) Glucose (70-99(Fasting)) mg/dl POC Glucose > 600 H* (70-99) mg/dl POC Glucose (other) (70-99) mg/dl Calcium (8.6-10.3) mg/dl POC Ioniz Calcium Chaka (1.12-1.32) mmol/l Total Bilirubin (0.2-1.0) mg/dl AST (13-39) U/L ALT (7-52) U/L Alkaline Phosphatase (34-104) U/L Total Protein (6.0-8.3) gm/dl Albumin (3.4-5.0) gm/dl Globulin (2.5-4.0) gm/dl Albumin/Globulin Ratio (0.9-2) Lipase (11-82) U/L Urine Color Yellow Urine Appearance Clear (Clear) Urine pH 6.0 (4.5-7.5) Ur Specific [place] 1.034 H (1.000-1.030) Urine Protein Negative (Negative) Urine Glucose (UA) 3+ H (Negative) Urine Ketones 1+ H (Negative) Urine Blood Trace H (Negative) Urine Nitrite Negative (Negative) Urine Bilirubin Negative (Negative) Urine Urobilinogen Negative (Negative) Ur Leukocyte Esterase 1+ H (Negative) Urine WBC (Auto) 21-50 H (0-5) /hpf Urine RBC (Auto) 0-2 (0-2) /hpf U Hyaline Cast (Auto) 0-2 (0-2) /lpf U Epithel Cells (Auto) 0-2 (0-2) /hpf Urine Bacteria (Auto) 1+ H (None Seen) Medications Administered Current Inpatient Medications Acetaminophen (Acetaminophen 325 Mg Tab) 650 mg PO Q4H PRN PRN Reason: pain/fever Stop: 02/12/25 17:16 Last Admin: 01/14/25 07:36 Dose: 650 mg Albuterol (Albuterol Hfa 8 Gm Inhaler) 2 puffs INH Q12H PRN PRN Reason: Shortness Of Breath Or Wheezing Stop: 02/12/25 19:23 Cyclobenzaprine HCl (Cyclobenzaprine Hcl 5 Mg Tab) 5 mg PO TID PRN PRN Reason: Muscle Spasm Stop: 02/12/25 19:23 Last Admin: 01/14/25 07:36 Dose: 5 mg Dextrose (Dextrose 50% 50 Ml Syringe) 25 - 50 ml IV UD PRN; Protocol PRN Reason: Hypoglycemia Protocol Stop: 02/12/25 16:27 Enoxaparin Sodium (Enoxaparin Inj 40 Mg/0.4 Ml Syr) 40 mg SQ Q12H DIANE Stop: 02/12/25 17:44 Last Admin: 01/14/25 05:38 Dose: 40 mg Glucagon (Glucagon For Inj 1 Mg Vial) 1 mg SQ UD PRN; Protocol PRN Reason: Hypoglycemia Protocol Stop: 02/12/25 16:27 Glucose (Glucose 40% Gel 15 Gm Tube) 15 - 30 gm PO UD PRN; Protocol PRN Reason: Hypoglycemia Protocol Stop: 02/12/25 16:27 Glucose (Glucose 10 Tab/Tube) 4 - 8 tab PO UD PRN; Protocol PRN Reason: Hypoglycemia Protocol Stop: 02/12/25 16:27 Potassium Chloride/Sodium Chloride (Normal Saline W/20 Meq Kcl) 20 meq in 1,000 mls @ 125 mls/hr IV .Q8H DIANE Stop: 02/12/25 23:44 Last Admin: 01/14/25 16:36 Dose: 125 mls/hr Ceftriaxone Sodium (Rocephin) 1,000 mg in 50 mls @ 100 mls/hr IV Q24H DIANE Stop: 01/19/25 17:29 Insulin Aspart (Insulin Aspart Per Unit Charge) 0 units SC ACHS DIANE Stop: 02/13/25 16:29 Insulin Aspart (Insulin Aspart Per Unit Charge) 0 units SC 0000,0400 DIANE Stop: 01/15/25 04:01 Melatonin (Melatonin 3 Mg Tab) 3 mg PO HS PRN PRN Reason: Insomnia Stop: 02/12/25 17:16 Miscellaneous (Carbohydrates For Hypoglycemia ) 15 - 30 gm PO UD PRN PRN Reason: Hypoglycemia Protocol Stop: 02/12/25 16:27 Miscellaneous (Remove Nicoderm Patch) 1 each N/A DAILY@0859 DIANE Stop: 02/13/25 08:58 Last Admin: 01/14/25 09:17 Dose: Not Given Miscellaneous Information (Pharmacy Glycemic Mgmt Consult) 1 each N/A UD PRN; Protocol PRN Reason: Consult Stop: 02/12/25 17:17 Nicotine (Nicotine 14 Mg/24 Hr Patch) 1 patch TD QAM [facility] Stop: 02/13/25 08:59 Last Admin: 01/14/25 09:17 Dose: Not Given Nystatin (Nystatin Powder 15gm Btl) 1 appln EXT BID [facility] Stop: 02/13/25 20:59 Nystatin (Nystatin Oint 15 Gm Tube) 1 appln EXT BID [facility] Stop: 02/13/25 20:59
[2025-01-14 07:56] LABS: Hematocrit (blood only) 41.1 % (42.0-52.0); Hemoglobin 13.8 g/dl (14.0-18.0); Mean Corpuscular Hemoglobin 27.5 pg (25.0-34.0); Mean Corpuscular Hgb Conc 33.6 g/dL (32.0-36.0); Mean Platelet Volume 10.3 fL (9.4-12.4); Platelet Count 205 K/uL (130-400); RDW Coefficient of Variation 13.5 % (11.5-14.5); RDW Standard Deviation 40.2 fL (36.4-46.3); Red Blood Count 5.01 M/uL (4.70-6.10); White Blood Count 6.31 K/ul (4.8-10.8)
[2025-01-14 08:11] LABS: Albumin Globulin Ratio 1.3 (0.9-2); Albumin Level 3.3 gm/dl (3.4-5.0); BUN Creatinine Ratio 16.9 (10-20); Bilirubin,Total 0.4 mg/dl (0.2-1.0); Calcium 8.1 mg/dl (8.6-10.3); Creatinine Clr Calc Pharmacy 313.8 ml/min; Globulin 2.6 gm/dl (2.5-4.0); Magnesium 1.9 mg/dl (1.7-2.4); Potassium 3.9 mmol/L (3.5-5.1); Total Protein 5.9 gm/dl (6.0-8.3)
[2025-01-14] MEDS: NICOTINE 14 MG/24 HR PATCH TD SCH (09:17)
--- NOTE | 2025-01-14 10:14 | Pharmacy Report ---
Pharmacy Glycemic Short Note 2 - Date of Service January 14, 2025 - Glycemic Short BSG Results (Last 24 hours): 01/13/25 01/13/25 01/13/25 15:32 15:43 15:49 Glucose 611 H* POC Glucose > 600 H* POC Glucose (other) 621 H* 01/13/25 01/13/25 01/13/25 16:34 18:01 18:59 Glucose POC Glucose 566 H* 562 H* 470 H* POC Glucose (other) 01/13/25 01/13/25 01/13/25 19:58 21:00 21:56 Glucose POC Glucose 410 H* 258 H 281 H POC Glucose (other) 01/13/25 01/13/25 01/13/25 22:58 23:40 23:57 Glucose 196 H POC Glucose 217 H 186 H POC Glucose (other) 01/14/25 01/14/25 01/14/25 00:29 01:27 02:26 Glucose POC Glucose 199 H 246 H 198 H POC Glucose (other) 01/14/25 01/14/25 01/14/25 03:33 04:27 05:28 Glucose POC Glucose 165 H 173 H 203 H POC Glucose (other) 01/14/25 01/14/25 01/14/25 06:30 07:34 08:20 Glucose 209 H POC Glucose 177 H 200 H POC Glucose (other) 01/14/25 09:33 Glucose POC Glucose 255 H POC Glucose (other) OUTPATIENT ANTIDIABETIC REGIMEN: * Novolin 70/30 insulin 60 units SC qAM, 40 units SC qPM HbA1c: 12.1% (12/19/24) - of note, this A1c was prior to initiation of above insulin regimen ASSESSMENT: * WS is a 39 year old male admitted with acute hyperglycemia (>600 mg/dL on presentation) * Patient admitted last month for same reason, insulin regimen changed to 70/30 regimen at that time * Insulin infusion initiated in ED - will give basal insulin this morning and transition to SC regimen later today * Plan is to transition at dinnertime * T2DM diet ordered. NSS + 20KCl @125 infusing. PLAN FOR INPATIENT GLYCEMIC CONTROL: * Basal insulin * Lantus 50 unit SC x 1, Lantus 20 units SC x 1 this afternoon for 70 units total * Bolus insulin - once insulin gtt transitioned to SC regimen * NovoLog per scale ACHS or Q6hrs while NPO * Goal Range: Low 110 mg/dL - High 140 mg/dL * Correction Factor: 10 mg/dL/unit * Nutritional / Prandial insulin per carb ratio of 1 unit per 3 grams CHO consumed
--- NOTE | 2025-01-14 11:09 | Electrocardiogram Report ---
Test Reason : Blood Pressure : */* mmHG Vent. Rate : 101 BPM Atrial Rate : 101 BPM P-R Int : 146 ms QRS Dur : 92 ms QT Int : 358 ms P-R-T Axes : 79 9 46 degrees QTcB Int : 464 ms Sinus tachycardia Otherwise normal ECG When compared with ECG of 18-Dec-2024 22:44, No significant change was found Confirmed by Rafa Terrazas ([id number]) on 01/14/2025 11:08:59 AM Referred By: REFERRED SELF Confirmed By: Rafa Terrazas
[2025-01-14] MEDS: STOP ORDER: INSULIN GTT ONE (16:32)
[2025-01-14 16:46] LABS: BUN Creatinine Ratio 17.6 (10-20); Calcium 8.6 mg/dl (8.6-10.3); Creatinine Clr Calc Pharmacy 272.3 ml/min; Magnesium 1.9 mg/dl (1.7-2.4); Phosphorus 3.9 mg/dl (2.5-4.9); Potassium 4.2 mmol/L (3.5-5.1)
[2025-01-14] MEDS: INSULIN ASPART PER UNIT CHARGE SC SCH ×2 (17:58→23:56)
[2025-01-14 18:38] LABS: Appearance Urine Clear (Clear); Bilirubin Urine Negative (Negative); Blood Urine Trace-intact (Negative); Color Urine Yellow; Glucose Urine UA Trace (Negative); Ketones Urine Negative (Negative); Leukocyte Esterase Urine Trace (Negative); Nitrite Urine Negative (Negative); Protein Urine Negative (Negative); Urobilinogen Urine Negative (Negative); pH Urine 5.5 (4.5-7.5)
[2025-01-14 18:56] LABS: Bacteria Urine None Seen (None Seen); WBC Urine 0-5 /hpf (0-5)
[2025-01-14] MEDS: cefTRIAXone SODIUM 2,000 MG/50 ML BAG IV SCH (21:09)
[2025-01-14] MEDS: NYSTATIN POWDER 15GM BTL EXT SCH (21:10)
[2025-01-14] MEDS: MELATONIN 3 MG TAB PO PRN (21:10)
[2025-01-14] MEDS: NYSTATIN OINT 15 GM TUBE EXT SCH (21:10)
[2025-01-15 08:03] LABS: Hematocrit (blood only) 43.6 % (42.0-52.0); Hemoglobin 15.2 g/dl (14.0-18.0); Mean Corpuscular Hemoglobin 28.2 pg (25.0-34.0); Mean Corpuscular Hgb Conc 34.9 g/dL (32.0-36.0); Mean Corpuscular Volume 80.9 fL (80.0-100.0); Mean Platelet Volume 10.3 fL (9.4-12.4); Platelet Count 238 K/uL (130-400); RDW Coefficient of Variation 13.7 % (11.5-14.5); RDW Standard Deviation 39.7 fL (36.4-46.3); Red Blood Count 5.39 M/uL (4.70-6.10); White Blood Count 6.76 K/ul (4.8-10.8)
[2025-01-15 08:22] LABS: Calcium 8.5 mg/dl (8.6-10.3); Creatinine Clr Calc Pharmacy 303.5 ml/min; Magnesium 1.8 mg/dl (1.7-2.4); Phosphorus 3.4 mg/dl (2.5-4.9); Potassium 4.4 mmol/L (3.5-5.1)
[2025-01-15] MEDS: LANTUS PER UNIT CHARGE SC SCH ×2 (08:55→20:02)
--- NOTE | 2025-01-15 15:11 | Pharmacy Report ---
Pharmacy Glycemic Short Note 2 - Date of Service January 15, 2025 - Glycemic Short BSG Results (Last 24 hours): 01/14/25 01/14/25 01/14/25 15:30 16:14 17:01 Glucose 128 H POC Glucose 142 H 126 H 01/14/25 01/14/25 01/15/25 20:04 23:47 04:33 Glucose POC Glucose 181 H 165 H 197 H 01/15/25 01/15/25 01/15/25 07:38 07:53 11:47 Glucose 243 H POC Glucose 230 H 198 H OUTPATIENT ANTIDIABETIC REGIMEN: * Novolin 70/30 insulin 60 units SC qAM, 40 units SC qPM HbA1c: 12.1% (12/19/24) - of note, this A1c was prior to initiation of above insulin regimen ASSESSMENT: 01/15 * Patient received a total of 117 units of SQ insulin in addition to the insulin drip yesterday (70 units were basal and 47 units were bolus). * BSGs improved yesterday afternoon and remained below 200mg/dL throughout the evening. * Fasting BSG was 230mg/dL this morning. Lantus 45 units qAM was started and a Lantus scale (10, 20, or 30 units depending on BSG) was started at HS. * The current bolus insulin regimen will be continued without change. 01/14 * WS is a 39 year old male admitted with acute hyperglycemia (>600 mg/dL on presentation) * Patient admitted last month for same reason, insulin regimen changed to 70/30 regimen at that time * Insulin infusion initiated in ED - will give basal insulin this morning and transition to SC regimen later today * Plan is to transition at dinnertime * T2DM diet ordered. NSS + 20KCl @125 infusing. PLAN FOR INPATIENT GLYCEMIC CONTROL: * Basal insulin * Lantus 45 units SQ QAM and Lantus scale at HS (10 units for BSG < 160-10 units, 20 units for BSG 160-200, 30 units for BSG >200) * Bolus insulin - once insulin gtt transitioned to SC regimen * NovoLog per scale ACHS or Q6hrs while NPO * Goal Range: Low 110 mg/dL - High 140 mg/dL * Correction Factor: 10 mg/dL/unit * Nutritional / Prandial insulin per carb ratio of 1 unit per 3 grams CHO consumed
--- NOTE | 2025-01-15 16:39 | Hospitalist Progress Note ---
Date of Service January 15, 2025 Assessment & Plan (1) Diabetes mellitus with hyperglycemia: Plan Uncontrolled IDDM c/b neuropathy, angiopathy -insulin ggt on admission, now transitioned to subq -titrate to determine appropriate level -Glycemic pharmacy consulted -will need close outpatient f/u with primary care, endocrinology - pt reports he will follow up with [facility] on 01/25/2025 - school adjustment counselor consulted DISCHARGE RECOMMENDATIONS: 1.) ReliOn/Novolin 70/30- 60 units with breakfast and 45 units with supper. 2.) SMBG 2-3x/day- before breakfast and before supper daily; before lunch/before bed 2x/week. 3.) Lifestyle changes- regular/balanced meals thru day, smaller portions of carbs/starches. 4.) Follow-up on health insurance. Chronic conditions #Asthma, htn, morbid obesity #Bipolar 1, MDD #Tobacco use -home meds -nicotine patch IVF, diabetic diet as tolerated Admission and Anticipated Discharge Date Admission Date: January 13, 2025 Subjective Pt seen in follow up of hyperglycemia Sitting up in bed in NAD, overall feels better No chest pain, shortness of breath, no fever, chills, no abd. pain., n/v Initially on iv insulin -> now transitioned to subq repeat UA negative, blood cultx negat. for 24 hrs Reports - plans to follow up w/ [facility] on 01/25/2025 Review of Systems Review of Systems: All systems reviewed & are unremarkable except as noted in Subjective Physical Exam Physical Exam: Constitutional: + morbidly obese ,M in NAD Eyes: PERRL, EOMI, conju nctivae normal, an icteric sclerae ENMT: external ear and n ose normal Neck: + thick neck Respiratory: normal respiratory effort, lungs juan ar to auscultation Cardiovascular: RRR, no murmur, no edema Gastrointestinal ( Abdomen): normal bowel sound s, soft, nontender , + obese abdomen Musculoskeletal: moves extremities Skin: warm, dry Neurologic: PERRL, EOMI,no fac e palsy, no dysart hria, moves extrem ities Psychiatric: A+Ox3, euthymic af fect Results & Data Results & Data Vital Signs (Past 12 Hours) Vital Signs Temp Pulse Resp BP Pulse Ox O2 Del Method 01/15/25 15:42 36.8 C 86 18 128/80 93 Room Air 04/15/25 11:54 Room Air 01/15/25 10:40 36.7 C 78 16 142/81 H 94 Room Air 01/15/25 07:24 36.4 C L 77 16 132/81 96 Room Air Laboratory Results 01/15/25 01/15/25 01/15/25 Range/Units 11:47 07:53 07:38 WBC 6.76 (4.8-10.8) K/ul RBC 5.39 (4.70-6.10) M/uL Hgb 15.2 (14.0-18.0) g/dl Hct 43.6 (42.0-52.0) % MCV 80.9 (80.0-100.0) fL MCH 28.2 (25.0-34.0) pg MCHC 34.9 (32.0-36.0) g/dL RDW Std Deviation 39.7 (36.4-46.3) fL RDW Coeff of Black 13.7 (11.5-14.5) % Plt Count 238 (130-400) K/uL MPV 10.3 (9.4-12.4) fL Sodium 136 (136-145) mmol/L Potassium 4.4 (3.5-5.1) mmol/L Chloride 107 (98-107) mmol/L Carbon Dioxide 24 (21-32) mmol/L Anion Gap 5 (3-11) BUN 11 (6-23) mg/dl Creatinine 0.61 (0.6-1.4) mg/dl Est Cr Clr Drug Dosing 303.5 ml/min eGFR 123.75 BUN/Creatinine Ratio 18.0 (10-20) Glucose 243 H (70-99(Fasting)) mg/dl POC Glucose 198 H 230 H (70-99) mg/dl Calcium 8.5 L (8.6-10.3) mg/dl Phosphorus 3.4 (2.5-4.9) mg/dl Magnesium 1.8 (1.7-2.4) mg/dl Urine Color Urine Appearance (Clear) Urine pH (4.5-7.5) Ur Specific [place] (1.000-1.030) Urine Protein (Negative) Urine Glucose (UA) (Negative) Urine Ketones (Negative) Urine Blood (Negative) Urine Nitrite (Negative) Urine Bilirubin (Negative) Urine Urobilinogen (Negative) Ur Leukocyte Esterase (Negative) Urine RBC (0-2) /hpf Urine WBC (0-5) /hpf Ur Epithelial Cells (0-2) /hpf Urine Bacteria (None Seen) 01/15/25 01/14/25 01/14/25 Range/Units 04:33 Unknown 23:47 WBC (4.8-10.8) K/ul RBC (4.70-6.10) M/uL Hgb (14.0-18.0) g/dl Hct (42.0-52.0) % MCV (80.0-100.0) fL MCH (25.0-34.0) pg MCHC (32.0-36.0) g/dL RDW Std Deviation (36.4-46.3) fL RDW Coeff of Black (11.5-14.5) % Plt Count (130-400) K/uL MPV (9.4-12.4) fL Sodium (136-145) mmol/L Potassium (3.5-5.1) mmol/L Chloride (98-107) mmol/L Carbon Dioxide (21-32) mmol/L Anion Gap (3-11) BUN (6-23) mg/dl Creatinine (0.6-1.4) mg/dl Est Cr Clr Drug Dosing ml/min eGFR BUN/Creatinine Ratio (10-20) Glucose (70-99(Fasting)) mg/dl POC Glucose 197 H 165 H (70-99) mg/dl Calcium (8.6-10.3) mg/dl Phosphorus (2.5-4.9) mg/dl Magnesium (1.7-2.4) mg/dl Urine Color Yellow Urine Appearance Clear (Clear) Urine pH 5.5 (4.5-7.5) Ur Specific [place] 1.020 (1.000-1.030) Urine Protein Negative (Negative) Urine Glucose (UA) Trace H (Negative) Urine Ketones Negative (Negative) Urine Blood Trace-intact H (Negative) Urine Nitrite Negative (Negative) Urine Bilirubin Negative (Negative) Urine Urobilinogen Negative (Negative) Ur Leukocyte Esterase Trace H (Negative) Urine RBC 3-5 H (0-2) /hpf Urine WBC 0-5 (0-5) /hpf Ur Epithelial Cells 6-10 H (0-2) /hpf Urine Bacteria None Seen (None Seen) 01/14/25 01/14/25 01/14/25 Range/Units 20:04 17:01 16:14 WBC (4.8-10.8) K/ul RBC (4.70-6.10) M/uL Hgb (14.0-18.0) g/dl Hct (42.0-52.0) % MCV (80.0-100.0) fL MCH (25.0-34.0) pg MCHC (32.0-36.0) g/dL RDW Std Deviation (36.4-46.3) fL RDW Coeff of Black (11.5-14.5) % Plt Count (130-400) K/uL MPV (9.4-12.4) fL Sodium 136 (136-145) mmol/L Potassium 4.2 (3.5-5.1) mmol/L Chloride 106 (98-107) mmol/L Carbon Dioxide 23 (21-32) mmol/L Anion Gap 7 (3-11) BUN 12 (6-23) mg/dl Creatinine 0.68 (0.6-1.4) mg/dl Est Cr Clr Drug Dosing 272.3 ml/min eGFR 119.76 BUN/Creatinine Ratio 17.6 (10-20) Glucose 128 H (70-99(Fasting)) mg/dl POC Glucose 181 H 126 H (70-99) mg/dl Calcium 8.6 (8.6-10.3) mg/dl Phosphorus 3.9 (2.5-4.9) mg/dl Magnesium 1.9 (1.7-2.4) mg/dl Urine Color Urine Appearance (Clear) Urine pH (4.5-7.5) Ur Specific [place] (1.000-1.030) Urine Protein (Negative) Urine Glucose (UA) (Negative) Urine Ketones (Negative) Urine Blood (Negative) Urine Nitrite (Negative) Urine Bilirubin (Negative) Urine Urobilinogen (Negative) Ur Leukocyte Esterase (Negative) Urine RBC (0-2) /hpf Urine WBC (0-5) /hpf Ur Epithelial Cells (0-2) /hpf Urine Bacteria (None Seen) Medications Administered Current Inpatient Medications Acetaminophen (Acetaminophen 325 Mg Tab) 650 mg PO Q4H PRN PRN Reason: pain/fever Stop: 02/12/25 17:16 Last Admin: 01/15/25 07:30 Dose: 650 mg Albuterol (Albuterol Hfa 8 Gm Inhaler) 2 puffs INH Q12H PRN PRN Reason: Shortness Of Breath Or Wheezing Stop: 02/12/25 19:23 Cyclobenzaprine HCl (Cyclobenzaprine Hcl 5 Mg Tab) 5 mg PO TID PRN PRN Reason: Muscle Spasm Stop: 02/12/25 19:23 Last Admin: 01/14/25 07:36 Dose: 5 mg Dextrose (Dextrose 50% 50 Ml Syringe) 25 - 50 ml IV UD PRN; Protocol PRN Reason: Hypoglycemia Protocol Stop: 02/12/25 16:27 Enoxaparin Sodium (Enoxaparin Inj 40 Mg/0.4 Ml Syr) 40 mg SQ Q12H [facility] Stop: 02/12/25 17:44 Last Admin: 01/15/25 06:12 Dose: 40 mg Glucagon (Glucagon For Inj 1 Mg Vial) 1 mg SQ UD PRN; Protocol PRN Reason: Hypoglycemia Protocol Stop: 02/12/25 16:27 Glucose (Glucose 40% Gel 15 Gm Tube) 15 - 30 gm PO UD PRN; Protocol PRN Reason: Hypoglycemia Protocol Stop: 02/12/25 16:27 Glucose (Glucose 10 Tab/Tube) 4 - 8 tab PO UD PRN; Protocol PRN Reason: Hypoglycemia Protocol Stop: 02/12/25 16:27 Potassium Chloride/Sodium Chloride (Normal Saline W/20 Meq Kcl) 20 meq in 1,000 mls @ 80 mls/hr IV .[id number] [facility] Stop: 02/12/25 23:44 Last Infusion: 01/15/25 16:18 Dose: Infused Ceftriaxone Sodium (Rocephin) 2,000 mg in 50 mls @ 100 mls/hr IV Q24H [facility] Stop: 01/19/25 18:59 Last Infusion: 01/14/25 21:42 Dose: Infused Insulin Aspart (Insulin Aspart Per Unit Charge) 0 units SC ACHS [facility] Stop: 02/13/25 16:29 Last Admin: 01/15/25 13:04 Dose: 27 units Insulin Glargine (Lantus Per Unit Charge) 45 units SC DAILY [facility] Stop: 02/14/25 08:59 Last Admin: 01/15/25 08:55 Dose: 45 units Insulin Glargine (Lantus Per Unit Charge) 0 units SC HS [facility]ANE; Protocol Stop: 02/14/25 20:59 Melatonin (Melatonin 3 Mg Tab) 3 mg PO HS PRN PRN Reason: Insomnia Stop: 02/12/25 17:16 Last Admin: 01/14/25 21:10 Dose: 3 mg Miscellaneous (Carbohydrates For Hypoglycemia ) 15 - 30 gm PO UD PRN PRN Reason: Hypoglycemia Protocol Stop: 02/12/25 16:27 Miscellaneous (Remove Nicoderm Patch) 1 each N/A DAILY@0859 [facility] Stop: 02/13/25 08:58 Last Admin: 01/15/25 07:10 Dose: Not Given Miscellaneous Information (Pharmacy Glycemic Mgmt Consult) 1 each N/A UD PRN; Protocol PRN Reason: Consult Stop: 02/12/25 17:17 Nicotine (Nicotine 14 Mg/24 Hr Patch) 1 patch TD QAM [facility] Stop: 02/13/25 08:59 Last Admin: 01/15/25 07:10 Dose: Not Given Nystatin (Nystatin Powder 15gm Btl) 1 appln EXT BID [facility] Stop: 02/13/25 20:59 Last Admin: 01/15/25 07:31 Dose: 1 appln Nystatin (Nystatin Oint 15 Gm Tube) 1 appln EXT BID [facility] Stop: 02/13/25 20:59 Last Admin: 01/15/25 07:32 Dose: 1 appln
[2025-01-16 01:19] VITALS: O2SAT 94
[2025-01-16 08:01] VITALS: BP 112/78; PULSE 77; RESP 16; TEMP 97.7
[2025-01-16] MEDS: LANTUS PER UNIT CHARGE SC SCH (09:14)
[2025-01-16 10:33] LABS: Basophils # (auto) 0.03 K/uL (0.00-0.20); Basophils % (auto) 0.5 %; Eosinophils # (auto) 0.15 K/uL (0.00-0.50); Eosinophils % (auto) 2.3 %; Hematocrit (blood only) 44.4 % (42.0-52.0); Immature Granulocytes # (auto) 0.06 K/uL (0.01-0.20); Immature Granulocytes % (auto) 0.9 %; Lymphocytes # (auto) 1.69 K/uL (1.20-3.40); Mean Corpuscular Hemoglobin 27.9 pg (25.0-34.0); Mean Corpuscular Hgb Conc 33.8 g/dL (32.0-36.0); Mean Corpuscular Volume 82.7 fL (80.0-100.0); Mean Platelet Volume 10.2 fL (9.4-12.4); Monocytes # (auto) 0.43 K/uL (0.11-0.59); Monocytes % (auto) 6.6 %; Neutrophils # (auto) 4.13 K/uL (1.40-6.50); Neutrophils % (auto) 63.7 %; Platelet Count 225 K/uL (130-400); RDW Coefficient of Variation 13.7 % (11.5-14.5); RDW Standard Deviation 40.9 fL (36.4-46.3); Red Blood Count 5.37 M/uL (4.70-6.10); White Blood Count 6.49 K/ul (4.8-10.8)
[2025-01-16 10:51] LABS: Albumin Level 3.7 gm/dl (3.4-5.0); Bilirubin,Total 0.4 mg/dl (0.2-1.0); Calcium 8.6 mg/dl (8.6-10.3); Magnesium 1.7 mg/dl (1.7-2.4); Potassium 4.3 mmol/L (3.5-5.1)
[2025-01-16 10:57] LABS: Albumin Globulin Ratio 1.3 (0.9-2); BUN Creatinine Ratio 18.2 (10-20); Creatinine Clr Calc Pharmacy 280.5 ml/min; Globulin 2.8 gm/dl (2.5-4.0); Phosphorus 3.3 mg/dl (2.5-4.9); Total Protein 6.5 gm/dl (6.0-8.3)
--- NOTE | 2025-01-16 11:48 | Discharge Summary ---
Discharge Summary Date of Service January 16, 2025 Principal Dx & Hospital Course #1 = Principal Diagnosis Notes For Next Care Provider Medication Changes From Visit Nystatin prn Novolin 70/30 60 U in the AM, 45U in the PM Admission HPI Per Admitting Provider 39M pmh IDDM c/b polyneuropathy, angiopathy, htn, morbid obesity, bipolar 1, tobacco use d/o, MDD, asthma presents to the ED with hyperglycemia. Patient states that since he was last here approximately 3 weeks ago for a similar issue he has been taking his insulin as prescribed. Saw endocrinology who has been helping manage his DM and his sugars have slowly crept up until today when he took it and it read "high" indicating too high to measure. No other symptoms, including chest pain, sob, fever, chills, abdominal pain. Updated Medication List Medication Instructions Recorded Confirmed Type cyclobenzaprine 5 mg tablet 5 mg PO TID PRN Muscle Spasm 11/06/20 01/13/25 History dulaglutide 3 mg/0.5 mL 3 mg subcut WK 12/01/23 01/13/25 History subcutaneous pen injector (Trulicity) albuterol sulfate 90 mcg/actuation 2 puff inhalation DIRECTED PRN 12/19/24 01/13/25 History aerosol inhaler Shortness Of Breath Or Wheezing insulin NPH-regular 70-30 U-100 40 - 60 unit subcut UD 01/13/25 01/13/25 History insulin 100 unit/mL subcutaneous pen (Novolin 70-30 FlexPen U-100 Insulin) insulin human U-100 NPH-regulr See Rx Instructions .Route 01/16/25 Rx 70-30 mix 100 unit/mL subcutaneous .COMPLEX #10 mL susp (Novolin 70/30 U-100 Insulin) nystatin 100,000 unit/gram topical 1 applic EXT BID PRN rash #15 grams 01/16/25 Rx ointment Hospital Stay Data Consultations 01/13/25 16:56 ED Decision to Admit Stat Discharge Instructions Given to Patient (Per Discharging Provider) Jairo, You are being discharged home with a renewed prescription for NPH insulin for your Diabetes. Please continue to use it as prescribed to avoid similar complications. It is very important that you use your insulin every day. Continue to use nystatin as needed to help with your rashes. Please keep close followup with [facility] after discharge. Please do not hesitate to come back to the emergency room if your symptoms worsen or return. It was a pleasure taking care of you while you were here. Total Time Total Time Spent Total Time Spent (In Minutes): 60
== END 2025-01-16 15:27 | disposition home or self-care (01) | DRG 638 ==
LOC: ED 15:23 → SUATTDRO 17:17 → EDINP 17:17 → 3N 19:24 → 2W 01-14 04:39